=== PATIENT | female | born 1960 | race Two or more races ===

== ENCOUNTER 2023-01-21 07:47 | Emergency (ER) | payer OTHER, SELFPAY ==
--- NOTE | 2023-01-21 | US_ITS ---
The [address] [address] Patient Name: ZUNILDA ARIAS MRN: [id number] date: 1960 Sex: F Assigned Patient Location: ER Current Patient Location: ER Accession/Order Number: [id number] Exam Date: 01/21/2023 11:08 Report Date: 01/21/2023 12:08 At the request of: NAOMI VERA Procedure: US pelvis EXAMINATION: US pelvis, US vas organ single comp HISTORY: RIGHT OVARIAN MASS COMPARISON: 01/21/2023 CT exam FINDINGS: The uterus is normal in size, contour and myometrial echotexture measuring 6.8 x 4.9 x 3.5 cm. Anteverted. No focal myometrial mass. The endometrium measures 2 mm, within normal limits Heterogeneous mixed solid and cystic right adnexal mass measuring 12.7 x 12.3 x 9.1 cm. Normal ovarian tissue is not definitively seen. Color and Doppler flow is identified in the soft tissue components throughout the mass. The left ovary is not visualized IMPRESSION: 12.7 cm right adnexal mixed solid and cystic vascular mass. Malignancy is favored Electronically authenticated by: CHANDU SHRESTHA Date: 01/21/2023 12:08
[2023-01-21 07:51] VITALS: BP 182/96; PULSE 61; RESP 18; TEMP 36.4; O2SAT 94; BMI 33.6
--- NOTE | 2023-01-21 08:01 | CT_ITS ---
[address] [address] Patient Name: ZUNILDA ARIAS MRN: [id number] date: 1960 Sex: F Assigned Patient Location: ER Current Patient Location: ER Accession/Order Number: [id number] Exam Date: 01/21/2023 08:50 Report Date: 01/21/2023 09:39 At the request of: NAOMI VERA Procedure: CT abdomen pelvis w con EXAMINATION: CT abdomen pelvis w con HISTORY: abdominal pain, nausea COMPARISON: No relevant comparison available. TECHNIQUE: CT images were created with IV contrast. Axial, Coronal, and Sagittal images. Dose reduction techniques were achieved by using automated exposure control and/or adjustment of mA and/or kV according to patient size and/or use of iterative reconstruction technique. FINDINGS: LUNG BASES: No visible pulmonary or pleural disease. LIVER: Diffuse hypoattenuation consider hepatic steatosis. Subcentimeter hypodensity right hepatic lobe possibly a cyst BILIARY: No visible dilatation or calcification. PANCREAS: No lesion, fluid collection, ductal dilatation, or atrophy. SPLEEN: Areas of soft tissue attenuation in the left upper quadrant, residual splenic tissue is suspected ADRENALS: No mass or enlargement. KIDNEYS: Contour deformity cortical thinning calcification upper pole of the right kidney likely representing chronic changes BOWEL/MESENTERY: Colonic diverticulosis without evidence of acute diverticulitis. Nonobstructive bowel gas pattern AORTA/VASCULAR: No aneurysm or dissection. RETROPERITONEUM: No mass or adenopathy. LYMPH NODES: No adenopathy. URINARY BLADDER: No visible focal wall thickening, lesion, or calculus. PELVIC ORGANS: Unremarkable uterus and cervix. Complex lobular pelvic mass adjacent to the right adnexa measuring 13.0 x 12.3 cm axial image 161 and 11.6 cm in craniocaudal dimension deforming the superior margin of the urinary bladder. Heterogeneous soft tissue attenuationr with 3.5 cm area of fat density. The left ovary is not definitively seen ABDOMINAL WALL: No mass or hernia. BONES: No bony lesion or fracture. OTHER: Negative. IMPRESSION: Lobular heterogeneous complex pelvic mass measuring 13.0 x 12.3 x 11.6 cm. I favor an ovarian mass. Consideration should be given to malignant and nonmalignant tumors including malignant transformation of a teratoma Electronically authenticated by: CHANDU SHRESTHA Date: 01/21/2023 09:39
--- NOTE | 2023-01-21 08:11 | ED_ITS ---
HPI - Abdominal Pain General Chief Complaint: Abdominal Pain Stated Complaint: ABDOMIANL PAIN Time Seen by Provider: 01/21/23 07:54 Source: patient and family Mode of arrival: walk-in History of Present Illness HPI narrative: RLQ abdominal pain Started suddenly around 3 or 4am and woke the patient from sleeping. She had associated nausea but no vomiting. Pain is severe. PMHx includes kidney stones, splenic rupture and an appendectomy. No urinary symptoms. No fever or chills. Pain radiates into the right flank. She told me that she has been feeling great up until this happened. Related Data Allergies Allergy/AdvReac Type Severity Reaction Status Date / Time PCN AdvReac Intermediate Uncoded 01/21/23 07:51 PFSH PFSH Social History Smoking status: Former smoker Exam Narrative Exam Narrative: Nurses notes and vital signs reviewed and patient is not hypoxic. afebrile General: Very uncomfortable and in moderate distress. Skin: Warm, dry, no pallor noted. No rash to abdomen or flank. Head: Normocephalic, atraumatic. Eye: Pupils are equal, round and EOMI. No scleral icterus. Ears, Nose, Mouth, and Throat: Oral mucosa is moist Cardiovascular: Regular Rate and Rhythm without murmur, gallop or rub. Respiratory: No accessory muscle use or respiratory distress. Lungs are clear to auscultation, no wheezing, rales or rhonchi Back: No midline thoracic or lumbar vertebral tenderness. Right CVA tenderness Musculoskeletal: normal ROM, no calf or popliteal tenderness, no lower extremity edema/swelling GI: Abdomen is soft, non-distended. Normal bowel sounds. No masses appreciated. Suprapubic and RLQ tenderness to palpation. No rebound, guarding, or rigidity noted. Neurological: A&O x4. No cranial nerve dysfunction observed. No truncal ataxia. Moves all extremities. Sensation intact. Psychiatric: Cooperative and interactive. Normal mood and affect. Constitutional Vital Signs - 24 hr 01/21/23 07:51 Temperature 97.5 F L Pulse Rate [Monitor] 61 Respiratory Rate 18 Blood Pressure [Left Arm] 182/96 H Pulse Oximetry 94 L Oxygen Delivery Method Room Air Course Vital Signs Vital signs: Vital Signs Temperature 97.5 F L 01/21/23 07:51 Pulse Rate 61 01/21/23 07:51 Respiratory Rate 18 01/21/23 07:51 Blood Pressure 182/96 H 01/21/23 07:51 Pulse Oximetry 94 L 01/21/23 07:51 Oxygen Delivery Method Room Air 01/21/23 07:51 Temperature 97.5 F L 01/21/23 07:51 Pulse Rate 61 01/21/23 07:51 Respiratory Rate 18 01/21/23 07:51 Blood Pressure 182/96 H 01/21/23 07:51 Pulse Oximetry 94 L 01/21/23 07:51 Oxygen Delivery Method Room Air 01/21/23 07:51 MDM - Abdominal Pain MDM Narrative Medical decision making narrative: peripheral IV established and blood drawn and sent for testing including lactate. Blood blood cell count was normal. Lactate was elevated. blood cultures were ordered to be obtained patient was ordered to receive IV Levaquin. She was initially given IV morphine and IV Toradol for pain, along with IV Zofran for nausea. Pain is unchanged. Patient ordered to receive IV Dilaudid. She required several additional doses of dilaudid and her pain was only minimally decreased. CT scan of the abdomen pelvis with IV contrast ordered to be obtained. CT revealed a large pelvic mass, possible ovarian tumor. I spoke with Dr Arndt - [employer] field control inspector - he recommended pelvic US and transfer to [facility] where Dr Mike Tarango is a [employer] oncologist. US pelvis confirmed findings suspicious for right ovarian tumor. Call placed to [facility] to discuss transfer and referral to Dr Mike Fuller. I spoke with Dr Tyler - one of the residents - about this patient's case, her intractable pain, the CT and US findings and Dr Arndt's recommendation. I requested admission to their facility for this patient. She told me that she would discuss with Dr Lainez and call me back. I spoke once again with Dr Tyler and the patient was accepted to [facility] under Dr Lainez's service. Patient will be transported by ambulance. Lab Data Attestation: I reviewed the patient's lab results. Labs: Lab Results 01/21/23 01/21/23 Range/Units 08:05 08:08 WBC 5.5 (4.0-11.0) 10^3/uL RBC 4.46 (4.20-5.40) 10^6/uL Hgb 14.5 (12.0-16.0) g/dL Hct 42.9 (36.0-48.0) % MCV 96.2 (81.0-99.0) fL MCH 32.5 (26.7-34.0) pg MCHC 33.8 (29.9-35.2) g/dL RDW 13.2 (11.0-15.0) % Plt Count 393 (150-450) 10^3/uL MPV 10.1 (9.5-13.5) fL Neut % (Auto) 42.5 L (43.0-75.0) % Lymph % (Auto) 31.7 (20.5-60.0) % [place] % (Auto) 14.3 H (1.7-12.0) % Eos % (Auto) 9.2 H (0.9-7.0) % Baso % (Auto) 1.8 (0.2-2.0) % Neut # (Auto) 2.3 (1.4-6.5) 10^3/uL Lymph # (Auto) 1.7 (1.2-3.8) 10^3/uL [place] # (Auto) 0.8 (0.3-0.8) 10^3/uL Eos # (Auto) 0.5 (0.0-0.7) 10^3/uL Baso # (Auto) 0.1 (0.0-0.1) 10^3/uL Abs Immat Gran (auto) 0.03 (0.00-0.03) 10^3/uL Imm/Tot Granulo (auto) 0.5 (0.0-0.5) % Sodium 141 (136-145) mmol/L Potassium 3.6 (3.5-5.1) mmol/L Chloride 106 (98-107) mmol/L Carbon Dioxide 21.6 (21.0-32.0) mmol/L Anion Gap 17.0 BUN 6.0 L (7.0-18.0) mg/dL Creatinine 0.56 (0.55-1.02) mg/dL Est GFR ( Amer) >60 (>=60) Est GFR (Non-Af Amer) >60 (>=60) BUN/Creatinine Ratio 10.7 Glucose 111 H (74-106) mg/dL Lactate 2.3 H* (0.4-2.0) mmol/L Calcium 8.8 (8.5-10.1) mg/dL Total Bilirubin 0.4 (0.2-1.0) mg/dL AST 48 H (15-37) U/L ALT 45 (14-59) U/L Alkaline Phosphatase 81 (46-116) U/L Total Protein 7.4 (6.4-8.2) g/dL Albumin 3.3 L (3.4-5.0) g/dL Globulin 4.1 g/dL Albumin/Globulin Ratio 0.8 Lipase 55.0 L (73.0-393.0) U/L Urine Color Lt. yellow (YELLOW) Urine Clarity Clear (CLEAR) Urine pH 6.5 (5.0-9.0) Ur Specific [place] 1.010 (1.005-1.025) Urine Protein Negative (NEG/TRACE) mg/dL Urine Glucose (UA) Negative (NEGATIVE) mg/dL Urine Ketones Negative (NEGATIVE) mg/dL Urine Occult Blood Negative (NEGATIVE) Urine Nitrite Negative (NEGATIVE) Urine Bilirubin Negative (NEGATIVE) Urine Urobilinogen 0.2 (0.2-1.0) EU/dL Ur Leukocyte Esterase Negative (NEGATIVE) Imaging Data ct abd/pelvis: Radiologist's impression: Patient Name: ZUNILDA ARIAS MRN: [id number] date: 1960 Sex: F Assigned Patient Location: Current Patient Location: Accession/Order Number: [id number] Exam Date: 01/21/2023 08:50 Report Date: 01/21/2023 09:39 At the request of: NAOMI VERA Procedure: CT abdomen pelvis w con EXAMINATION: CT abdomen pelvis w con HISTORY: abdominal pain, nausea COMPARISON: No relevant comparison available. TECHNIQUE: CT images were created with IV contrast. Axial, Coronal, and Sagittal images. Dose reduction techniques were achieved by using automated exposure control and/or adjustment of mA and/or kV according to patient size and/or use of iterative reconstruction technique. FINDINGS: LUNG BASES: No visible pulmonary or pleural disease. LIVER: Diffuse hypoattenuation consider hepatic steatosis. Subcentimeter hypodensity right hepatic lobe possibly a cyst BILIARY: No visible dilatation or calcification. PANCREAS: No lesion, fluid collection, ductal dilatation, or atrophy. SPLEEN: Areas of soft tissue attenuation in the left upper quadrant, residual splenic tissue is suspected ADRENALS: No mass or enlargement. KIDNEYS: Contour deformity cortical thinning calcification upper pole of the right kidney likely representing chronic changes BOWEL/MESENTERY: Colonic diverticulosis without evidence of acute diverticulitis. Nonobstructive bowel gas pattern AORTA/VASCULAR: No aneurysm or dissection. RETROPERITONEUM: No mass or adenopathy. LYMPH NODES: No adenopathy. URINARY BLADDER: No visible focal wall thickening, lesion, or calculus. PELVIC ORGANS: Unremarkable uterus and cervix. Complex lobular pelvic mass adjacent to the right adnexa measuring 13.0 x 12.3 cm axial image 161 and 11.6 cm in craniocaudal dimension deforming the superior margin of the urinary bladder. Heterogeneous soft tissue attenuationr with 3.5 cm area of fat density. The left ovary is not definitively seen ABDOMINAL WALL: No mass or hernia. BONES: No bony lesion or fracture. OTHER: Negative. IMPRESSION: Lobular heterogeneous complex pelvic mass measuring 13.0 x 12.3 x 11.6 cm. I favor an ovarian mass. Consideration should be given to malignant and nonmalignant tumors including malignant transformation of a teratoma Electronically authenticated by: CHANDU SHRESTHA Date: 01/21/2023 09:39 us pelvis: Radiologist's impression: Patient Name: ZUNILDA ARIAS MRN: [id number] date: 1960 Sex: F Assigned Patient Location: ER Current Patient Location: Accession/Order Number: [id number] Exam Date: 01/21/2023 11:08 Report Date: 01/21/2023 12:08 At the request of: NAOMI VERA Procedure: US pelvis EXAMINATION: US pelvis, US vas organ single comp HISTORY: RIGHT OVARIAN MASS COMPARISON: 01/21/2023 CT exam FINDINGS: The uterus is normal in size, contour and myometrial echotexture measuring 6.8 x 4.9 x 3.5 cm. Anteverted. No focal myometrial mass. The endometrium measures 2 mm, within normal limits Heterogeneous mixed solid and cystic right adnexal mass measuring 12.7 x 12.3 x 9.1 cm. Normal ovarian tissue is not definitively seen. Color and Doppler flow is identified in the soft tissue components throughout the mass. The left ovary is not visualized IMPRESSION: 12.7 cm right adnexal mixed solid and cystic vascular mass. Malignancy is favored Electronically authenticated by: CHANDU SHRESTHA Date: 01/21/2023 12:08 Discharge Plan Discharge Chief Complaint: Abdominal Pain Clinical Impression: Intractable abdominal pain, Mass of right ovary Patient Disposition: [facility] Time of Disposition Decision: 13:40 Discharge Location: [facility]
[2023-01-21] MEDS: ONDANSETRON PF 4 MG/2 ML VIAL (08:22)
[2023-01-21] MEDS: 0.9 % SODIUM CHLORIDE 1,000 ML 999 ML IV (08:23)
[2023-01-21] MEDS: MORPHINE SULFATE 2 MG/ML SYRINGE IV (08:23)
[2023-01-21] MEDS: ONDANSETRON PF 4 MG/2 ML VIAL IV ×3 (08:23→15:06)
[2023-01-21 08:24] LABS: Basophils Absolute Auto 0.1 10^3/uL (0.0-0.1); Basophils Percent Auto 1.8 % (0.2-2.0); Eosinophils Absolute Auto 0.5 10^3/uL (0.0-0.7); Eosinophils Percent Auto 9.2 % (0.9-7.0); Hematocrit 42.9 % (36.0-48.0); Hemoglobin 14.5 g/dL (12.0-16.0); Immature Granulocytes Abs Auto 0.03 10^3/uL (0.00-0.03); Immature Granulocytes Pct Auto 0.5 % (0.0-0.5); Lymphocytes Absolute Auto 1.7 10^3/uL (1.2-3.8); Lymphocytes Percent Auto 31.7 % (20.5-60.0); Mean Corpuscular HGB Conc 33.8 g/dL (29.9-35.2); Mean Corpuscular Hemoglobin 32.5 pg (26.7-34.0); Mean Corpuscular Volume 96.2 fL (81.0-99.0); Mean Platelet Volume 10.1 fL (9.5-13.5); Monocytes Absolute Auto 0.8 10^3/uL (0.3-0.8); Monocytes Percent Auto 14.3 % (1.7-12.0); Neutrophils Absolute Auto 2.3 10^3/uL (1.4-6.5); Neutrophils Percent Auto 42.5 % (43.0-75.0); Platelet Count 393 10^3/uL (150-450); Red Blood Count 4.46 10^6/uL (4.20-5.40); Red Cell Distribution Width 13.2 % (11.0-15.0); White Blood Count 5.5 10^3/uL (4.0-11.0)
[2023-01-21 08:38] LABS: Alanine Aminotransferase 45 U/L (14-59); Albumin Globulin Ratio 0.8; Albumin Level 3.3 g/dL (3.4-5.0); Alkaline Phosphatase 81 U/L (46-116); Aspartate Amino Transferase 48 U/L (15-37); BUN Creatinine Ratio 10.7; Bilirubin Total 0.4 mg/dL (0.2-1.0); Calcium 8.8 mg/dL (8.5-10.1); Carbon Dioxide 21.6 mmol/L (21.0-32.0); Chloride 106 mmol/L (98-107); Estimated GFR (African America >60 (>=60); Estimated GFR (Non-African Ame >60 (>=60); Globulin 4.1 g/dL; Glucose 111 mg/dL (74-106); Potassium 3.6 mmol/L (3.5-5.1); Sodium 141 mmol/L (136-145); Total Protein 7.4 g/dL (6.4-8.2)
[2023-01-21] MEDS: KETOROLAC TROMETHAMINE 30 MG/ML VIAL IVP (08:39)
[2023-01-21 08:58] LABS: Lactate/Lactic Acid 2.3 mmol/L (0.4-2.0)
[2023-01-21] MEDS: HYDROMORPHONE HCL 1 MG/ML CARTRIDGE (09:12)
[2023-01-21] MEDS: LEVOFLOXACIN IN DEXTROSE 5 % 750 MG/150 ML IV.SOLN 100 MG IV (09:14)
[2023-01-21 10:05] LABS: Bilirubin Urine NEGATIVE (NEGATIVE); Blood Urine NEGATIVE (NEGATIVE); Clarity Urine CLEAR (CLEAR); Color Urine LT. YELLOW (YELLOW); Glucose Urine UA NEGATIVE (NEGATIVE); Ketones Urine NEGATIVE (NEGATIVE); Leukocyte Esterase Urine NEGATIVE (NEGATIVE); Nitrite Urine NEGATIVE (NEGATIVE); Protein Urine NEGATIVE (NEG/TRACE); Urobilinogen Urine 0.2 EU/dL (0.2-1.0); pH Urine 6.5 (5.0-9.0)
[2023-01-21 11:45] LABS: Urine Microscopic Indicated NO
[2023-01-21] MEDS: HYDROMORPHONE HCL 2 MG/ML VIAL 1 MG IV (12:08)
--- NOTE | 2023-01-21 14:14 | PC.NURSE ---
200/100 hr 97/min pt updated onplan of care
[2023-01-21] MEDS: HYDROMORPHONE HCL 1 MG/ML CARTRIDGE IVP (15:06)
--- NOTE | 2023-01-21 15:17 | PC.NURSE ---
pt left facility in care of spuerior no ss of distress noted at this time
[2023-01-21 15:18] VITALS: BP 164/74; PULSE 88; RESP 18; TEMP 36.8; O2SAT 98
== END 2023-01-21 15:19 | disposition short-term general hospital (02) ==
PROVIDERS: Emergency Provider Emergency Medicine; PCP Family Medicine
DX: R10.9 Unspecified abdominal pain (principal); N83.8 Other noninflammatory disorders of ovary, fallopian tube and broad ligament; Z87.442 Personal history of urinary calculi; Z87.891 Personal history of nicotine dependence
CPT/HCPCS: 36415; 74177; 76856; 80053; 81003; 83605; 83690; 85025; 87040; 93975; 96374; 96375; 96376; 99285; J1170; Q9967

== ENCOUNTER 2023-08-05 08:32 | Outpatient (OUT) | payer MEDICARE, SELFPAY ==
[2023-08-05 09:40] LABS: Alanine Aminotransferase 50 U/L (14-59); Albumin Globulin Ratio 0.9; Albumin Level 3.3 g/dL (3.4-5.0); Alkaline Phosphatase 96 U/L (46-116); Anion Gap 12.6; Aspartate Amino Transferase 48 U/L (15-37); BUN Creatinine Ratio 7.8; Bilirubin Direct 0.1 mg/dL (0.0-0.2); Bilirubin Total 0.3 mg/dL (0.2-1.0); Calcium 8.9 mg/dL (8.5-10.1); Carbon Dioxide 23.2 mmol/L (21.0-32.0); Chloride 108 mmol/L (98-107); Chol HDL Ratio 3.2; Cholesterol 228 mg/dL (<=200); Estimated GFR (African America >60 (>=60); Estimated GFR (Non-African Ame >60 (>=60); Globulin 3.7 g/dL; Glucose 95 mg/dL (74-106); HDL Cholesterol 71 mg/dL (40-60); Potassium 3.8 mmol/L (3.5-5.1); Sodium 140 mmol/L (136-145); Thyroid Stimulating Hormone 1.189 uIU/mL (0.358-3.740); Triglycerides 269 mg/dL (<=150); VLDL CHOLESTEROL 53.8 mg/dL
[2023-08-05 09:43] LABS: Basophils Absolute Auto 0.1 10^3/uL (0.0-0.1); Basophils Percent Auto 1.8 % (0.2-2.0); Eosinophils Absolute Auto 0.5 10^3/uL (0.0-0.7); Eosinophils Percent Auto 9.8 % (0.9-7.0); Hematocrit 40.8 % (36.0-48.0); Hemoglobin 13.3 g/dL (12.0-16.0); Immature Granulocytes Abs Auto 0.02 10^3/uL (0.00-0.03); Immature Granulocytes Pct Auto 0.4 % (0.0-0.5); Lymphocytes Absolute Auto 1.7 10^3/uL (1.2-3.8); Mean Corpuscular HGB Conc 32.6 g/dL (29.9-35.2); Mean Corpuscular Hemoglobin 31.3 pg (26.7-34.0); Mean Platelet Volume 10.1 fL (9.5-13.5); Monocytes Absolute Auto 0.6 10^3/uL (0.3-0.8); Monocytes Percent Auto 13.3 % (1.7-12.0); Neutrophils Absolute Auto 1.7 10^3/uL (1.4-6.5); Neutrophils Percent Auto 37.7 % (43.0-75.0); Platelet Count 341 10^3/uL (150-450); Red Blood Count 4.25 10^6/uL (4.20-5.40); Red Cell Distribution Width 14.2 % (11.0-15.0); White Blood Count 4.6 10^3/uL (4.0-11.0)
== END 2023-08-05 08:33 | disposition home or self-care (01) ==
LOC: LAB 08:36
PROVIDERS: PCP Family Medicine; Visit Provider Family Medicine
DX: Z79.899 Other long term (current) drug therapy (principal); Z13.220 Encounter for screening for lipoid disorders; E66.9 Obesity, unspecified
CPT/HCPCS: 36415; 80048; 80061; 80076; 84443; 85025

== ENCOUNTER 2024-02-04 08:16 | Outpatient (OUT) | payer MEDICARE, SELFPAY ==
--- NOTE | 2024-02-04 08:32 | XR_ITS ---
The [address] [address] Patient Name: ZUNILDA ARIAS MRN: [id number] date: 1960 Sex: F Assigned Patient Location: [facility] Current Patient Location: [facility] Accession/Order Number: [id number] Exam Date: 02/04/2024 08:28 Report Date: 02/04/2024 09:07 At the request of: SANTOSH SCHUMACHER Procedure: XR shoulder RT min 2V PROCEDURE: XR shoulder RT min 2V COMPARISON: None. HISTORY: Chronic Right Shoulder Pain FINDINGS: BONES:No acute fracture or dislocation. Moderate acromioclavicular and glenohumeral joint osteoarthropathy. High riding humeral head suggests chronic rotator cuff injury SOFT TISSUES:Negative. No visible soft tissue swelling. EFFUSION:None visible. OTHER: Negative. XR/XR shoulder RT min 2V IMPRESSION: Right shoulder osteoarthritis Electronically authenticated by: CHANDU SHRESTHA Date: 02/04/2024 09:07
== END 2024-02-04 08:17 | disposition home or self-care (01) ==
LOC: RAD 08:18
PROVIDERS: PCP Family Medicine; Visit Provider Family Medicine
DX: M25.511 Pain in right shoulder (principal); G89.29 Other chronic pain; M19.011 Primary osteoarthritis, right shoulder
CPT/HCPCS: 73030

== ENCOUNTER 2024-09-15 09:35 | Outpatient (OUT) | payer OTHER, SELFPAY ==
--- OUTSIDE RECORDS SUMMARY | 2024-09-12 14:26 | XMS_ITS | CCD ---
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 Name Role Phone MD Lisa Hennessy Attending Provider MD Howard Schumacher Primary Care Provider [phone] MD Howard Schumacher Referring Provider DO Tone Magana Attending Provider MD Howard Schumacher Primary Care Provider MD Lisa Hennessy Attending Provider MD Howard Schumacher Referring Provider MD Lisa Hennessy Attending Provider MD Lisa Hennessy Referring Provider ENDY, DR HOWARD Otto Primary Care Unavailable [place], DR Oreilly Consulting Unavailable NADERER, DR HOWARD Otto Admitting Unavailable NADERER, DR HOWARD Otto Attending Unavailable NADERER, DR HOWARD Otto Consulting Unavailable NADERETre, DR HOWARD Otto Primary Care Unavailable NADERETre, DR HOWARD Otto Admitting Unavailable NADERETre, DR HOWARD Otto Attending Unavailable NADERETre, DR HOWARD Otto Consulting Unavailable NADERETre, DR HOWARD Otto Primary Care Unavailable NADERETre, DR HOWARD Otto Admitting Unavailable ZIEBER, DR CORBIN [place] Consulting Unavailable NADERETre, DR HOWARD Otto Attending Unavailable NADBELLA, DR HOWARD Otto Consulting Unavailable MD Lisa Hennessy Attending Provider [phone] MD Lisa Hennessy Referring Provider MD Howard Schumacher Primary Care Provider MD Lisa Hennessy Attending Provider [phone] MD Lisa Hennessy Referring Provider [phone] MD Howard Schumacher Primary Care Provider MD Lisa Hennessy Attending Provider MD Lisa Hennessy Referring Provider MD Howard Schumacher Primary Care Provider MD Lisa Hennessy Attending Provider MD Lisa Hennessy Referring Provider MD Howard Schumacher Primary Care Provider MD Lisa Hennessy Attending Provider MD Lisa Hennessy Referring Provider MD Howard Schumacher Primary Care Provider [phone] MD Lisa Hennessy Attending Provider MD Lisa Hennessy Referring Provider MD Howard Schumacher Primary Care Provider [phone] DO Jacinto Mcnulty Attending Provider [phone] MD Lisa Hennessy Attending Provider MD Lisa Hennessy Referring Provider MD Howard Schumacher Primary Care Provider Howard Schumacher MD Primary Care Provider [phone] [employer] [employer]ER, [facility] Unavailable Howard Schumacher MD Unavailable TONE MAGANA Attending Unavailable TONE MAGANA H Attending Unavailable HOWARD SCHUMACHER Referring Unavailable HOWARD SCHUMACHER Attending Unavailable TONE MAGANA H Attending Unavailable BANDAR ESPINOSA Attending Unavailable HOWARD SCHUMACHER Attending Unavailable BANDAR ESPINOSA A Attending Unavailable Tone Magana Admitting Unavailable Tone Magana Attending Unavailable Howard Schumacher Primary Care Unavailable Howard Schumacher Primary Care Unavailable Gerhard Lisa Admitting Unavailable Lisa Hennessy Attending Unavailable Gerhard, Lisa Referring Unavailable Allergies Allergy Classification Reported Allergen(s) Allergy Type Date of Onset Reaction(s) Facility (20 sources) Penicillin; Translations: [penicillin G] Drug Allergy 02-10-2022 Unknown [facility] (1 source) Penicillin Drug Allergy 12-25-2021 [facility] Medications Current Medications Medication Drug Class(es) Dates Sig (Normalized) Sig (Original) acetaminophen 500 mg oral tablet (5 sources) Start: 04-16-2023 Acetaminophen (Tylenol Ex Str Rapid Release) 500 mg Tablet Active 500 MG PO As Directed April 15, 2023 11:00pm anastrozole 1 mg oral tablet (20 sources) Aromatase Inhibitor Start: 04-02-2022 End: 03-17-2024 take 1 tablet by mouth once daily Anastrozole 1 mg tablet Active 1 MG PO Daily 90 90 March 17, 2024 8:21am ascorbic acid 1000 mg oral tablet (11 sources) Vitamin C Ascorbic Acid (vitamin C) 1000 MG tablet 1 (one) time each day at the same time. Active azithromycin 250 mg oral tablet (5 sources) Macrolide Antimicrobial Start: 07-28-2024 End: 08-02-2024 take 1 tablet by mouth once daily azithromycin (Zithromax Z-Cassius) 250 MG tablet Indications: Abscess, toe, left Take 1 tablet (250 mg) by mouth Daily for 5 days Use as directed 6 tablet 07/28/2024 08/02/2024 Active Calcium (8 sources) Phosphate Binder, Calcium Start: 09-11-2022 take 2 tablets by mouth once daily Calcium 500 mg Tablet Active 1000 MG PO Daily September 11, 2022 12:00am Start: 09-11-2022 take 1000 mg by mouth once ron ly Calcium Active 1000 MG PO Daily September 11, 2022 1:00am Start: 09-11-2022 take 1000 mg by mouth once ron ly Calcium Active 1000 MG PO Daily September 11, 2022 12:00am calcium carbonate 500 mg oral tablet (11 sources) calcium carbonat e (Os-Satya) 1250 (500 Ca) MG tablet 1 (one) time each day at the same time. Active cholecalciferol 0.025 mg oral tablet (19 sources) Vitamin D Start: 2022 take 1 tablet by mouth once daily Cholecalciferol (Vitamin D3) (Vitamin D3) 25 mcg (1,000 unit) Tablet Active 25 MCG PO Daily September 11, 2022 12:00am docusate sodium 100 mg oral capsule (11 sources) Start: 2022 take 1 capsule by mouth once daily at bedtime docusate sodium (Colace) 100 MG capsule take 1 capsule by mouth every morning and BEFORE BEDTIME 01/25/2023 Active docusate sodium 50 mg / sennosides, mcfp 8.6 mg oral tablet (8 sources) Start: 2022 End: 2024 take 1 tablet by mouth every twelve hours for constipation Stool Softener/Laxative 50-8.6 MG tablet take 1 tablet by mouth every 12 hours if needed for constipation 01/25/2023 08/01/2024 Discontinued ibuprofen 800 mg oral tablet (6 sources) Nonsteroidal Anti-inflammatory Drug Start: 2022 take 1 tablet by mouth three times daily Ibuprofen 800 mg Tablet Active 800 MG PO Three times daily March 11, 2023 11:00pm meloxicam 15 mg oral tablet (15 sources) Nonsteroidal Anti-inflammatory Drug Start: 2022 End: 2024 take 1 tablet by mouth once daily meloxicam (Mobic) 15 MG tablet Indications: Arthralgia, unspecified joint Take 1 tablet (15 mg) by mouth Daily 30 tablet 11 03/17/2024 03/17/2025 Active mometasone furoate 1 mg/ml topical cream (17 sources) Corticosteroid Start: 2021 End: 2024 mometasone (Elocon) 0.1 % cream apply topically to RADIATION SITE DAILY AFTER RADIATION 04/24/2022 08/01/2024 Discontinued Start: 04-10-2022 End: 12-31-2022 Mometasone 0.1 % Cream Disco ntinued 1 APPLIC TOPICAL Daily 45 April 09, 2022 11:00pm December 31, 2022 12:20pm to radiation site daily AFTER radiation [place] (No Known Home Meds) (3 sources) Start: 03-14-2022 [place] (No Kn own Home Meds) Active March 14, 2022 12:00am Completed/Discontinued Medications Medication Drug Class(es) Dates Sig (Normalized) Sig (Original) acetaminophen 300 mg / codeine phosphate 30 mg oral tablet (13 sources) Opioid Agonist Start: 02-18-2022 End: 03-14-2022 take 1 tablet by mouth every four to six hours as needed for pain Acetaminophen-Code ine 300-30 mg tablet Discontinued 1 TAB PO EVERY 4-6 HOURS as needed for pain 14 3 February 17, 2022 11:00pm March 14, 2022 12:11pm calcium carbonate 1250 mg / cholecalciferol 0.01 mg oral tablet (9 sources) Vitamin D Start: 06-11-2022 End: 09-11-2022 Calcium Carbonate-Vitamin D3 (Calcium 500 + D) 500 mg-10 mcg (400 unit) Tablet Discontinued 2 TAB PO Daily 180 90 June 11, 2022 12:00am September 11, 2022 2:55pm Multivitamin (Multiple Vitamin) Tablet (6 sources) Start: 02-19-2023 End: 03-12-2023 take 1 tablet by mouth once daily Multivitamin (Multiple Vitamin) Tablet Discontinued 1 TAB PO Daily February 18, 2023 11:00pm March 12, 2023 12:01pm Start: 02-19-2023 End: 03-12-2023 take 1 tablet by mouth once daily Multivitamin (Multiple Vitamin) Tablet Discontinued 1 TAB PO Daily February 19, 2023 12:00am March 12, 2023 1:01pm oxyCODONE hydrochloride 5 mg oral tablet (6 sources) Opioid Agonist Start: 03-12-2023 End: 04-16-2023 take 1 tablet by mouth every six hours as needed for pain Oxycodone 5 mg Tablet Discontinued 5 MG PO Q6H as needed for Pain March 11, 2023 11:00pm April 16, 2023 10:04am Problems Active Problems Problem Classification Problem Date Documented Da te Episodic/Chronic Cancer of breast (20 sources) Malignant neoplasm of upper-inner quadrant of female breast; Translations: [Malignant neoplasm of upper-inner quadrant of right female breast] Onset: 01-16-2022 Resolved: 02-01-2024 01-30-2022 Chronic Disorders of lipid metabolism (7 sources) Dyslipidemia; Translations: [Hyperlipidemia, unspecified] Onset: 08-04-2023 08-01-2024 Chronic Other aftercare (10 sources) Encounter for therapeutic drug level monitoring; Translations: [Encounter for therapeutic drug monitoring] 06-18-2022 Episodic Other aftercare (20 sources) Long-term current use of drug therapy; Translations: [Encounter for therapeutic drug level monitoring] Onset: 08-04-2023 04-02-2022 Episodic Other bone disease and musculoskeletal deformities (20 sources) Osteopenia; Translations: [Other specified disorders of bone density and structure, unspecified site] Onset: 11-09-2023 06-11-2022 Episodic Other bone disease and musculoskeletal deformities (10 sources) Other specified disorders of bone density and structure, unspecified site; Translations: [Disorder of bone and cartilage, unspecified] 06-18-2022 Episodic Other connective tissue disease (4 sources) Pain of toe of left foot; Translations: [Pain in left toe(s)] 07-28-2024 Episodic Other female genital disorders (17 sources) Mass of uterine adnexa; Translations: [Other specified conditions associated with female genital organs and menstrual cycle] Onset: 11-09-2023 02-19-2023 Episodic Other female genital disorders (5 sources) Other specified conditions associated with female genital organs and menstrual cycle; Translations: [Other specified symptoms associated with female genital organs] 03-12-2023 Episodic Other non-traumatic joint disorders (19 sources) Joint pain; Translations: [Pain in unspecified joint] Onset: 08-04-2023 02-19-2023 Episodic Other non-traumatic joint disorders (7 sources) Pain in unspecified joint; Translations: [Pain in joint, site unspecified] 03-12-2023 Episodic Other screening for suspected conditions (not mental disorders or infectious disease) (20 sources) Patient encounter status; Translations: [Encounter for screening for osteoporosis] Onset: 08-04-2023 04-02-2022 Episodic Other skin disorders (4 sources) Ingrowing nail; Translations: [Ingrowing nail] 07-28-2024 Episodic Residual codes; unclassified (2 sources) History of bilateral salpingo-oophorect kathryn; Translations: [Acquired absence of other genital organ(s)] 02-11-2024 Episodic Residual codes; unclassified (2 sources) Acquired absence of other genital organ(s); Translations: [Acquired absence of organ, genital organs] 02-11-2024 Episodic Skin and subcutaneous tissue infections (4 sources) Abscess of toe of left foot; Translations: [Cutaneous abscess of left foot] 07-28-2024 Episodic Unclassified (3 sources) Unspecified lump in the right breast, overlapping quadrants; Translations: [UNS LUMP RT BREAST OVRLPNG QUADRNTS] Onset: 01-01-2022 Unclassified (1 source) Unspecified lump in the right breast, upper outer quadrant; Translations: [Unspecified lump in the right breast, upper outer quadrant] Onset: 09-29-2023 Past or Other Problems Problem Classification Problem Date Documented Date Episodic/Chronic Immunizations and screening for infectious disease (11 sources) Anti-nuclear factor positive; Translations: [Other specified abnormal immunological findings in serum] Onset: 08-04-2023 08-04-2023 Episodic Nonmalignant breast conditions (15 sources) Unspecified lump in the right breast, upper inner quadrant; Translations: [Pain of breast] Onset: 12-25-2021 Episodic Other aftercare (9 sources) Drug therapy finding; Translations: [Encounter for therapeutic drug level monitoring] Onset: 11-09-2023 04-02-2022 Episodic Other connective tissue disease (11 sources) Lump on face; Translations: [Other specified soft tissue disorders] Onset: 06-26-2023 06-26-2023 Episodic Other non-traumatic joint disorders (11 sources) Chronic pain of right upper limb; Translations: [Pain in right shoulder] Onset: 02-01-2024 02-01-2024 Episodic Other nutritional; endocrine; and metabolic disorders (11 sources) Body mass index 30+ - obesity; Translations: [Obesity, unspecified] Onset: 08-04-2023 Resolved: 08-01-2024 08-04-2023 Chronic Residual codes; unclassified (1 source) Family history of malignant neoplasm of digestive organs; Translations: [FAM HX MALIG NEOPLASM DIGESTIV ORGN] Onset: 01-01-2022 Episodic Results Test Name Value Interpretation Reference Range Facility MM diagnostic mammo BI w/CAD on 12-31-2023 MM diagnostic mammo BI w/CAD [facility] [address] Ultrasound Report Signed Patient: Denia Al MR#: [id number] : 1960 Acct:[id number] Age/Sex: 63 / F ADM Date: 12/31/23 Loc: XT [facility]: [facility] Attending Dr: Lisa Hennessy MD Ordering Provider: Lisa Hennessy MD; Ciera Vitale, ALEX Date of Service: 12/31/23 MM/MM diagnostic mammo BI w/CAD: right breast cancer ([id number]) US/US extremity nonvascular: RT AXILLA SWELLING Copies to: MD Ciera Kay, CLEAN OUT DRILLER BILATERAL Diagnostic Full Field digital mammogram with 3-D imaging. Full field digital CC and MLO imaging performed. CAD utilized. COMPARISON: 12/29/2022 HISTORY: Right axillary fullness for 6 weeks. History of right breast cancer. History of axillary lymph node dissection on the right. 2 years ago. BREAST COMPOSITION: Scattered fibroglandular densities of the breast parenchyma identified BREAST CALCIFICATIONS: Benign calcifications present. VASCULAR CALCIFICATIONS: None ARCHITECTURAL DISTORTION: None BREAST NODULE: None AXILLARY LYMPH NODES: Benign-appearing right axillary lymph nodes. POSTSURGICAL CHANGES: Stable right lumpectomy changes. Right axillary ultrasound performed. There is identification of 3 lymph nodes in the right axillary region. Thin cortex and fatty hilum identified. Largest measures up to 13 mm in short axis dimension. These are similar prior examination and likely represent benign findings. US/US extremity nonvascular IMPRESSION: No mammographic evidence of malignancy. Similar benign-appearing right axillary lymph nodes. Routine follow-up recommended in one year. RESULT CODE: 2 Benign Findings(s) DENSITY CODE: 2 (approximately 25-50% glandular) FOLLOW UP: 1YR THE FALSE-NEGATIVE RATE OF MAMMOGRAPHY IS APPROXIMATELY 10%. IMAGING OF A PALPABLE ABNORMALITY MUST BE BASED ON CLINICAL GROUNDS. PATIENT WAS ENTERED INTO A REMINDER SYSTEM WITH A TARGET DUE DATE FOR THE NEXT MAMMOGRAM. Impression dictated by: Ricardo Dumas M.D.12/31/2023 12:15 PM Dictation Location: [facility] Tech: Germaniajohnny Brooks Transcribed By: JAYSHREE 12/31/23 1215 Dictated By: Ricardo Dumas DO 12/31/23 1212 Signed By: 12/31/23 1215 Normal [facility] US breast RT limited 09-28 US breast RT limited [facility] [address] Ultrasound Report Signed Patient: Denia Al MR#: [id number] : 1960 Acct:[id number] Age/Sex: 63 / F ADM Date: 09/29/23 Loc: [facility] Room: Type: [facility] Attending Dr: Tone Magana DO Ordering Provider: Tone Magana DO Date of Service: 09/29/23 US/US breast RT limited: UOQ painful lump Copies to: Tone Magana DO Targeted right breast ultrasound HISTORY: History of right lumpectomy medially. Developing palpable lump in the upper outer quadrant of the right breast. Right breast scanned from 9 to 11:00 position in the region of palpable lump. This is at the 10:00 position 7 8 cm from the nipple. No focal abnormality identified. US/US breast RT limited IMPRESSION: No focal abnormality. Impression dictated by: Ricardo Dumas M.D.09/29/2023 10:58 AM Dictation Location: [facility] Tech: Terrie Brennan Transcribed By: JAYSHREE 09/29/23 1058 Dictated By: Ricardo Dumas DO 09/29/23 1056 Signed By: 09/29/23 1058 Normal [facility] Alanine aminotransferase [En zymatic activity/volume] in Serum or PlasmaOrdered By: Ciera Vitale on 03-12-2023 ALT [Catalytic activity/Vol] 27 U/L 7-52 [facility] Albumin [Mass/volume] in Ser um or Plasma by Bromocresol green (BCG) dye binding methoOrdered By: Ciera Vitale on 03-12-2023 Albumin BCG dye [Mass/Vol] 4.1 g/dL 3.5-5.7 [facility] Alkaline phosphatase [Enzyma tic activity/volume] in Serum or PlasmaOrdered By: Ciera Vitale on 03-12-2023 ALP [Catalytic activity/Vol] 76 U/L 34-104 [facility] Aspartate aminotransferase [ Enzymatic activity/volume] in Serum or PlasmaOrdered By: Ciera Vitale on 03-12-2023 AST [Catalytic activity/Vol] 32 U/L 13-39 [facility] Basophils Auto (Bld) [#/Vol] Ordered By: Ciera Vitale on 03-12-2023 Basophils (Bld) [#/Vol] 0.1 10*3/uL 0.0-0.2 [facility] Basophils/100 WBC Auto (Bld) Ordered By: Ciera Vitale on 03-12-2023 Basophils/100 WBC (Bld) 1.2 % . [facility] Bilirubin.total [Mass/volume ] in Serum or PlasmaOrdered By: Ciera Vitale on 03-12-2023 Bilirubin [Mass/Vol] 0.6 mg/dL 0.3-1.0 [facility] C reactive protein [Mass/vol ume] in Serum or PlasmaOrdered By: Ciera Vitale on 03-12-2023 CRP [Mass/Vol] 0.5 mg/dL 0.0-0.5 [facility] Calcium [Mass/volume] in Ser um or PlasmaOrdered By: Ciera Vitale on 03-12-2023 Calcium [Mass/Vol] 9.6 mg/dL 8.6-10.3 [facility] Carbon dioxide, total [Moles /volume] in Serum or PlasmaOrdered By: Ciera Vitale on 03-12-2023 CO2 [Moles/Vol] 28.4 mmol/L 21.0-31.0 [facility] Chloride [Moles/volume] in S wilber or PlasmaOrdered By: Ciera Vitale on 03-12-2023 Chloride [Moles/Vol] 107 mmol/L 98-107 [facility] Creatinine [Mass/volume] in Serum or PlasmaOrdered By: Ciera Vitale on 03-12-2023 Creatinine [Mass/Vol] 0.65 mg/dL 0.60-1.20 [facility] Eosinophils Auto (Bld) [#/Vo l]Ordered By: Ciera Vitale on 03-12-2023 Eosinophils (Bld) [#/Vol] 0.3 10*3/uL 0.0-0.45 [facility] Eosinophils/100 WBC Auto (Bl d)Ordered By: Ciera Vitale on 03-12-2023 Eosinophils/100 WBC (Bld) 5.1 % . [facility] Erythrocyte distribution wid th Auto (RBC) [Ratio]Ordered By: Ciera Vitale on 03-12-2023 Erythrocyte distribution width (RBC) [Ratio] 13.9 % 11.9-15.3 [facility] Erythrocyte sedimentation ra te by Photometric methodOrdered By: Ciera Vitale on 03-12-2023 ESR Photometric method (Bld) [Velocity] 25 mm/hr 0-29 [facility] Globulin Calc (S) [Mass/Vol] Ordered By: Ciera Vitale on 03-12-2023 Globulin (S) [Mass/Vol] 2.8 g/dL [facility] Glucose [Mass/volume] in Ser um or PlasmaOrdered By: Ciera Vitale on 03-12-2023 Glucose [Mass/Vol] 95 mg/dL 70-100 [facility] Comment on above: ADA recommended refe rence rangeRandom Glucose Reference Range is dependent on time and content of last meal. Glucose of more than 200 mg/dL in a nonstressed, ambulatory subject supports the diagnosis of Diabetes Mellitus. Hematocrit Auto (Bld) [Volum e fraction]Ordered By: Ciera Vitale on 03-12-2023 Hematocrit (Bld) [Volume fraction] 38.8 % 34.0-46.4 [facility] Hemoglobin [Mass/volume] in BloodOrdered By: Ciera Vitale on 03-12-2023 Hemoglobin (Bld) [Mass/Vol] 12.6 g/dL 11.8-15.4 [facility] Leukocytes [#/volume] correc pedro for nucleated erythrocytes in Blood by Automated counOrdered By: Ciera Vitale on 03-12-2023 WBC corrected for nucl RBC Auto (Bld) [#/Vol] 6.5 10*3/uL 3.8-11.6 [facility] Lymphocytes Auto (Bld) [#/Vo l]Ordered By: Ciera Vitale on 03-12-2023 Lymphocytes (Bld) [#/Vol] 1.5 10*3/uL 1.00-4.8 [facility] Lymphocytes/100 WBC Auto (Bl d)Ordered By: Ciera Vitale on 03-12-2023 Lymphocytes/100 WBC (Bld) 23.0 % . [facility] MCH Auto (RBC) [Entitic mass ]Ordered By: Ciera Vitale on 03-12-2023 MCH (RBC) [Entitic mass] 31.7 pg 24.7-34.3 [facility] MCHC Auto (RBC) [Mass/Vol]Or dered By: Ciera Vitale on 03-12-2023 MCHC (RBC) [Mass/Vol] 32.6 g/dL 32.0-35.0 [facility] MCV Auto (RBC) [Entitic vol] Ordered By: Ciera Vitale on 03-12-2023 MCV (RBC) [Entitic vol] 97.3 fL 80-100 [facility] Monocytes Auto (Bld) [#/Vol] Ordered By: Ciera Vitale on 03-12-2023 Monocytes (Bld) [#/Vol] 0.9 10*3/uL High 0.0-0.8 [facility] Monocytes/100 WBC Auto (Bld) Ordered By: Ciera Vitale on 03-12-2023 Monocytes/100 WBC (Bld) 13.4 % . [facility] Neutrophils Auto (Bld) [#/Vo l]Ordered By: Ciera Vitale on 03-12-2023 Neutrophils (Bld) [#/Vol] 3.7 10*3/uL 1.8-7.7 [facility] Neutrophils/100 WBC Auto (Bl d)Ordered By: Ciera Vitale on 03-12-2023 Neutrophils/100 WBC (Bld) 57.3 % . [facility] No Panel InformationOrdered By: Ciera Vitale on 03-12-2023 Anti-Nuclear Antibody Comment 2 See comment . [facility] Comment on above: For more information about Hep-2 cell patterns useANApatterns.org, the official website for the InternationalConsensus on Antinuclear Antibody ([place]) Patterns (ICAP). -----A positive [place] result may occur in healthy individuals (lowtiter) or be associated with a variety of diseases. Seeinterpretation chart which is not all inclusive:Pattern Antigen Detected Suggested Disease Association Homogeneous DNA(ds,ss), SLE - High titers Nucleosomes, Histones Drug-induced SLE Speckled Sm, UTILITY WORK[employer] [place], SCL-70, SLE,MCTD,PSS (diffuse form), SS-A/SS-B Sjogrens Nucleolar SCL-70, PM-1/SCL High titers Scleroderma, PM/DM Centromere Centromere PSS (limited form) w/Crest syndrome variable Nuclear Dot [id number] Primary Biliary Cirrhosis Nuclear GP210, Primary Biliary CirrhosisMembrane rory A,B,C Performed at: [facility] [id number] Director: Abdifatah Villegas PhD, Phone: [phone] Estimated GFR (CKD-EPI) > 60.0 mL/Min [facility] Creatinine Clearance (Chem 88.96 [facility] Nucleated erythrocytes [Pres ence] in Blood by Automated countOrdered By: Ciera Vitale on 03-12-2023 Nucleated RBC Auto Ql (Bld) 0.1 /100{WBC} 0-0.5 [facility] Platelet mean volume Auto (B ld) [Entitic vol]Ordered By: Ciera Vitale on 03-12-2023 Platelet mean volume (Bld) [Entitic vol] 8.5 fL 6.3-10.7 [facility] Platelets Auto (Bld) [#/Vol] Ordered By: Ciera Vitale on 03-12-2023 Platelets (Bld) [#/Vol] 417 10*3/uL 150-450 [facility] Potassium [Moles/volume] in Serum or PlasmaOrdered By: Ciera Vitale on 03-12-2023 Potassium [Moles/Vol] 4.7 mmol/L 3.5-5.1 [facility] Protein [Mass/volume] in Ser um or PlasmaOrdered By: Ciera Vitale on 03-12-2023 Protein [Mass/Vol] 6.9 g/dL 6.4-8.9 [facility] RBC Auto (Bld) [#/Vol]Ordere d By: Ciera Vitale on 03-12-2023 RBC (Bld) [#/Vol] 3.99 10*6/uL 3.60-5.[address] [facility] Serum homogeneous pattern an tinuclear antibody ([place]) titerOrdered By: Ciera Vitale on 03-12-2023 Homogenous nuclear Ab pattern (S) [Titer] 1:160 High . [facility] Comment on above: ICAP nomenclature: A C-1 Serum nuclear antibody titer Ordered By: Ciera Vitale on 03-12-2023 Nuclear Ab (S) [Titer] Positive Abnormal . [facility] Comment on above: Negative <1:80 Borde rline 1:80 Positive >1:80 Serum nucleolar pattern anti nuclear antibody ([place]) titerOrdered By: Ciera Vitale on 03-12-2023 Nucleolar nuclear Ab pattern (S) [Titer] 1:320 High . [facility] Comment on above: ICAP nomenclature: A C-8,9,10 Serum or plasma albumin/glob ulin mass ratioOrdered By: Ciera Vitale on 03-12-2023 Albumin/Globulin [Mass ratio] 1.5 {ratio} [facility] Serum or plasma anion gap de terminationOrdered By: Ciera Vitale on 03-12-2023 Anion gap [Moles/Vol] 9.3 mmol/L 6.0-15.0 [facility] Serum or plasma cyclic adeno sine monophosphate measurement (moles/volume)Ordered By: Ciera Vitale on 03-12-2023 Adenosine monophosphate.cyclic [Moles/Vol] 6 units 0-19 [facility] Comment on above: Negative <20 Weak po sitive 20 - 39 Moderate positive 40 - 59 Strong positive >59Performed at: - [facility] [address] [id number] Director: Abdifatah Villegas PhD, Phone: [phone] Serum or plasma rheumatoid f actor measurement (units/volume)Ordered By: Ciera Vitale on 03-12-2023 Rheumatoid factor Qn 10.3 [IU]/mL <14.0 [facility] Sodium [Moles/volume] in Ser um or PlasmaOrdered By: Ciera Vitale on 03-12-2023 Sodium [Moles/Vol] 140 mmol/L 136-145 [facility] Urea nitrogen [Mass/volume] in Serum or PlasmaOrdered By: Ciera Vitale on 03-12-2023 Urea nitrogen [Mass/Vol] 6 mg/dL Low 7-25 [facility] WBC Auto (Bld) [#/Vol]Ordere d By: Ciera mOermary kate on 03-12-2023 WBC (Bld) [#/Vol] 6.5 10*3/uL 3.8-11.6 [facility] COVID-19 Positive/NegativeOr dered By: Tone Magana on 03-05-2022 SARS-CoV-2 (COVID-19) N gene AMY+probe Ql (Resp) Negative Negative [facility] Comment on above: Testing for SARS-CoV -2 by RT-PCR This test was developed and its performance characteristics determined by [employer] and validated at the [facility]. This test has not been FDA cleared or approved. This test has been authorized by FDA under an Emergency Use Authorization (EUA). This test has been validated in accordance with the FDA's Guidance Document (Policy for Diagnostics Testing in Laboratories Certified to Perform High Complexity Testing under CLIA prior to Emergency Use Authorization for Coronavirus Disease-2019 during the Public Health Emergency) issued on October 27, 2019. This test is only authorized for the duration of time the declaration that circumstances exist justifying the authorization of the emergency use of in vitro diagnostic tests for detection of SARS-CoV-2 virus and/or diagnosis of COVID-19 infection under section 564(b)(1) of the Act, 21 U.S.C. 360bbb-3(b)(1), unless the authorization is terminated or revoked sooner. COVID-19 Positive/NegativeOr dered By: Tone Magana on 02-14-2022 SARS-CoV-2 (COVID-19) N gene AMY+probe Ql (Resp) Negative Negative [facility] Comment on above: Testing for SARS-CoV -2 by RT-PCR This test was developed and its performance characteristics determined by [employer] and validated at the [facility]. This test has not been FDA cleared or approved. This test has been authorized by FDA under an Emergency Use Authorization (EUA). This test has been validated in accordance with the FDA's Guidance Document (Policy for Diagnostics Testing in Laboratories Certified to Perform High Complexity Testing under CLIA prior to Emergency Use Authorization for Coronavirus Disease-2019 during the Public Health Emergency) issued on October 27, 2019. This test is only authorized for the duration of time the declaration that circumstances exist justifying the authorization of the emergency use of in vitro diagnostic tests for detection of SARS-CoV-2 virus and/or diagnosis of COVID-19 infection under section 564(b)(1) of the Act, 21 U.S.C. 360bbb-3(b)(1), unless the authorization is terminated or revoked sooner. Basophils Auto (Bld) [#/Vol] Ordered By: Tone Magana on 02-10-2022 Basophils (Bld) [#/Vol] 0.1 10*3/uL 0.0-0.2 [facility] Basophils/100 WBC Auto (Bld) Ordered By: Tone Magana on 02-10-2022 Basophils/100 WBC (Bld) 1.3 % . [facility] Blood hemoglobin measurement (mass/volume)Ordered By: Tone Magana on 02-10-2022 Hemoglobin (Bld) [Mass/Vol] 14.5 g/dL 11.8-15.4 [facility] Blood leukocytes automated c ount (number/volume)Ordered By: Tone Magana on 02-10-2022 WBC (Bld) [#/Vol] 8.1 10*3/uL 4.5-11.0 [facility] Creatinine and Glomerular fi ltration rate.predicted panel (S/P/Bld)Ordered By: Tone Magana on 02-10-2022 Creatinine [Mass/Vol] 0.64 mg/dL 0.44-1.03 [facility] Eosinophils Auto (Bld) [#/Vo l]Ordered By: Tone Magana on 02-10-2022 Eosinophils (Bld) [#/Vol] 0.8 10*3/uL 0.0-0.45 [facility] Eosinophils/100 WBC Auto (Bl d)Ordered By: Tone Magana on 02-10-2022 Eosinophils/100 WBC (Bld) 10.2 % . [facility] Erythrocyte distribution wid th Auto (RBC) [Ratio]Ordered By: Tone Magana on 02-10-2022 Erythrocyte distribution width (RBC) [Ratio] 13.4 % 11.9-15.3 [facility] Estimated glomerular filtrat ion rate (GFR) non- AmericanOrdered By: Tone Magana on 02-10-2022 GFR/1.73 sq M.predicted among non-blacks MDRD (S/P/Bld) [Vol rate/Area] > 60 mL/Min [facility] Hematocrit Auto (Bld) [Volum e fraction]Ordered By: Tone Magana on 02-10-2022 Hematocrit (Bld) [Volume fraction] 43.4 % 34.0-46.4 [facility] Laboratory - Hematology and Cell countsOrdered By: Tone Magana on 02-10-2022 Nucleated RBC/100 WBC (Bld) [Ratio] 0.2 % 0-0.5 [facility] Lymphocytes Auto (Bld) [#/Vo l]Ordered By: Tone Magana on 02-10-2022 Lymphocytes (Bld) [#/Vol] 1.7 10*3/uL 1.00-4.8 [facility] Lymphocytes/100 WBC Auto (Bl d)Ordered By: Tone Magana on 02-10-2022 Lymphocytes/100 WBC (Bld) 21.4 % . [facility] MCH Auto (RBC) [Entitic mass ]Ordered By: Tone Magana on 02-10-2022 MCH (RBC) [Entitic mass] 33.8 pg 24.7-34.3 [facility] MCHC Auto (RBC) [Mass/Vol]Or dered By: Tone Magana on 02-10-2022 MCHC (RBC) [Mass/Vol] 33.4 g/dL 32.0-35.0 [facility] MCV Auto (RBC) [Entitic vol] Ordered By: Tone Magana on 02-10-2022 MCV (RBC) [Entitic vol] 101.3 fL 80-100 [facility] Monocytes Auto (Bld) [#/Vol] Ordered By: Tone Magana on 02-10-2022 Monocytes (Bld) [#/Vol] 1.0 10*3/uL 0.0-0.8 [facility] Monocytes/100 WBC Auto (Bld) Ordered By: Tone Magana on 02-10-2022 Monocytes/100 WBC (Bld) 12.2 % . [facility] Neutrophils Auto (Bld) [#/Vo l]Ordered By: Tone Magana on 02-10-2022 Neutrophils (Bld) [#/Vol] 4.4 10*3/uL 1.8-7.7 [facility] Neutrophils/100 WBC Auto (Bl d)Ordered By: Tone Magana on 02-10-2022 Neutrophils/100 WBC (Bld) 54.9 % . [facility] No Panel InformationOrdered By: Tone Magana on 02-10-2022 Estimated GFR () > 60 mL/Min [facility] Comment on above: GFR estimated refere nce range: According to KDOQI guidelines, <60 ml/min/1.73m2 is sufficient to diagnose a patient with chronic kidney disease. Pharmacy Creatinine Clearance (Chem N/A [facility] Platelet mean volume Auto (B ld) [Entitic vol]Ordered By: Tone Magana on 02-10-2022 Platelet mean volume (Bld) [Entitic vol] 8.1 fL 6.3-10.7 [facility] Platelets Auto (Bld) [#/Vol] Ordered By: Tone Magana on 02-10-2022 Platelets (Bld) [#/Vol] 388 10*3/uL 150-450 [facility] RBC Auto (Bld) [#/Vol]Ordere d By: Tone Magana on 02-10-2022 RBC (Bld) [#/Vol] 4.29 10*6/uL 3.60-5.[address] [facility] Serum or plasma calcium cyndee urement (mass/volume)Ordered By: Tone Magana on 02-10-2022 Calcium [Mass/Vol] 9.6 mg/dL 8.2-10.2 [facility] Serum or plasma chloride raf surement (moles/volume)Ordered By: Tone Magana on 02-10-2022 Chloride [Moles/Vol] 106 mmol/L 95-114 [facility] Serum or plasma glucose cyndee urement (mass/volume)Ordered By: Tone Magana on 02-10-2022 Glucose [Mass/Vol] 103 mg/dL 70-100 [facility] Comment on above: ADA recommended refe rence range Random Glucose Reference Range is dependent on time and content of last meal. Glucose of more than 200 mg/dL in a nonstressed, ambulatory subject supports the diagnosis of Diabetes Mellitus. Serum or plasma potassium me asurement (moles/volume)Ordered By: Tone Magana on 02-10-2022 Potassium [Moles/Vol] 4.2 mmol/L 3.5-5.1 [facility] Serum or plasma sodium measu rement (moles/volume)Ordered By: Tone Magana on 02-10-2022 Sodium [Moles/Vol] 140 mmol/L 136-146 [facility] Serum or plasma total carbon dioxide measurement (moles/volume)Ordered By: Tone Magana on 02-10-2022 CO2 [Moles/Vol] 25.4 mmol/L 22.0-30.0 [facility] Serum or plasma urea nitroge n measurement (mass/volume)Ordered By: Tone Magana on 02-10-2022 Urea nitrogen [Mass/Vol] 4 mg/dL 9-23 [facility] US VAC ASST BX BREAST RT W C LIPon 01-09-2022 US VAC ASST BX BREAST RT W CLIP Begin Addendum #1 COLLECTED DATE/TIME: 01/01/2022 08:41 EDT Final Diagnosis Report for [facility], [place], [place] RIGHT BREAST MASS, 1 O'CLOCK, ULTRASOUND GUIDED CORE BIOPSY: -INVASIVE DUCTAL CARCINOMA, PROVISIONAL GRADE 2. 01/07/[address] Schumacher. Verified with Sabina that report was present in office. Original Report EXAMINATION: US VAC ASST BX BREAST RT W CLIP HISTORY: Lump in right breast COMPARISON: No relevant comparison available. TECHNIQUE: After obtaining informed consent, ultrasound-guided fine needle aspiration was performed in the usual sterile manner. FINDINGS: IMAGING: Ultrasound. BIOPSY NEEDLE: Mammotome vacuum assisted core needle LOCATION: Right breast 2:00 mass measuring 3.6 x 3.3 x 3.2 cm SPECIMEN TYPE: 4 core samples. LOCAL ANESTHETIC: 2 mL 1% buffered lidocaine superficial, 6 mL 1% buffered lidocaine with epinephrine deep. COMPLICATIONS: None. LABORATORY: Core samples were sent in formalin. OTHER: Negative. PATHOLOGY: Pending. An addendum will be added when results are available. IMPRESSION: 1. Uneventful ultrasound guided fine needle aspiration vacuum assisted core biopsy right breast mass 2. Pathology results are pending. Normal [facility] MAMMO POST BIOPSY RIGHTon MAMMO POST BIOPSY RIGHT Patient: DENIA VILLARREAL Exam Date: 01/01/2022 : 1960 Gender:F Ordering : DR HOWARD SCHUMACHER . Admission #: [id number] Family : Order #: [id number] CLICK HERE TO VIEW EXAM RADIOLOGY REPORT PROCEDURE: MAMMOGRAM POST BIOPSY IMAGES COMPARISON: MG MAMM DIAGNOSTIC 3D ALFREDO CAD, 12/25/2021. INDICATIONS: Mammographic mass of right breast BREAST COMPOSITION: FINDINGS: BIOPSY MARKER: A metallic marker has been placed in the targeted location within the biopsied mass. BREAST FINDINGS: Postprocedural changes Dictated by: Denilson Veliz MD on 01/01/2022 at 09:07 Approved by: Denilson Veliz MD on 01/01/2022 at 09:08 Normal [facility] MG MAMM DIAGNOSTIC 3D ALFREDO CA Don 12-25-2021 MG MAMM DIAGNOSTIC 3D ALFREDO CAD Patient: DENIA AL Exam Date: 12/25/2021 : 1960 Gender:F Ordering : DR HOWARD SCHUMACHER . Admission #: [id number] Family : Order #: [id number] CLICK HERE TO VIEW EXAM RADIOLOGY REPORT PROCEDURE: MAMMOGRAM DIAGNOSTIC 3D BILATERAL CAD, 12/25/2021, 07:53 ULTRASOUND BREAST RIGHT LIMITED, 12/25/2021, 08:25 COMPARISON: None. INDICATIONS: Lump in upper inner quadrant of right breast Calculator Name NCI Breast Cancer Risk Assessment Tool 5 Year Breast Cancer Risk 2.80% Lifetime Breast Cancer Risk 11.70% Personal Breast Cancer No Personal Ovarian Cancer No Treatments None Family Cancers Father with stomach cancer at age 84. LOCATION: [facility] BREAST COMPOSITION: Almost entirely fatty. FINDINGS: DIAGNOSTIC CATEGORY 4--SUSPICIOUS FOR MALIGNANCY. FINDING DOES NOT EXHIBIT CLASSIC FINDINGS OF BREAST CANCER: RIGHT BREAST: Macrolobular mass at approximately the 3 o'clock position, 4.5 cm in diameter on today's mammogram, which corresponds to patient's palpable lump. Scattered benign-appearing calcifications. Ultrasound evaluation demonstrates a macro lobular heterogeneous hypoechoic mass, 3.8 x 3.2 x 3.0 cm, corresponding to patient's palpable lump. Ultrasound-guided biopsy is recommended. Findings, recommendations, and alternatives were discussed with the patient. Our radiology department nurse will contact patient to events assistant scheduling a biopsy. LEFT BREAST: A few, scattered benign-appearing tiny calcifications. No suspicious findings. RECOMMENDATIONS: ULTRASOUND-GUIDED CORE BIOPSY: RIGHT BREAST PLEASE NOTE: A NORMAL MAMMOGRAM DOES NOT EXCLUDE THE POSSIBILITY OF BREAST CANCER. A CLINICALLY SUSPICIOUS PALPABLE LUMP SHOULD BE BIOPSIED. Dictated by: Corbin Lester M.D. on 12/25/2021 at 08:39 Approved by: Corbin Lester M.D. on 12/25/2021 at 08:49 Normal [facility] US BREAST RIGHT LIMITEDon US BREAST RIGHT LIMITED Patient: DENIA VILLARREAL Exam Date: 12/25/2021 : 1960 Gender:F Ordering : DR HOWARD SCHUMACHER . Admission #: [id number] Family : Order #: [id number] CLICK HERE TO VIEW EXAM RADIOLOGY REPORT PROCEDURE: MAMMOGRAM DIAGNOSTIC 3D BILATERAL CAD, 12/25/2021, 07:53 ULTRASOUND BREAST RIGHT LIMITED, 12/25/2021, 08:25 COMPARISON: None. INDICATIONS: Lump in upper inner quadrant of right breast Calculator Name NCI Breast Cancer Risk Assessment Tool 5 Year Breast Cancer Risk 2.80% Lifetime Breast Cancer Risk 11.70% Personal Breast Cancer No Personal Ovarian Cancer No Treatments None Family Cancers Father with stomach cancer at age 84. LOCATION: [facility] BREAST COMPOSITION: Almost entirely fatty. FINDINGS: DIAGNOSTIC CATEGORY 4--SUSPICIOUS FOR MALIGNANCY. FINDING DOES NOT EXHIBIT CLASSIC FINDINGS OF BREAST CANCER: RIGHT BREAST: Macrolobular mass at approximately the 3 o'clock position, 4.5 cm in diameter on today's mammogram, which corresponds to patient's palpable lump. Scattered benign-appearing calcifications. Ultrasound evaluation demonstrates a macro lobular heterogeneous hypoechoic mass, 3.8 x 3.2 x 3.0 cm, corresponding to patient's palpable lump. Ultrasound-guided biopsy is recommended. Findings, recommendations, and alternatives were discussed with the patient. Our radiology department nurse will contact patient to events assistant scheduling a biopsy. LEFT BREAST: A few, scattered benign-appearing tiny calcifications. No suspicious findings. RECOMMENDATIONS: ULTRASOUND-GUIDED CORE BIOPSY: RIGHT BREAST PLEASE NOTE: A NORMAL MAMMOGRAM DOES NOT EXCLUDE THE POSSIBILITY OF BREAST CANCER. A CLINICALLY SUSPICIOUS PALPABLE LUMP SHOULD BE BIOPSIED. Dictated by: Corbin Lester M.D. on 12/25/2021 at 08:39 Approved by: Corbin Lester M.D. on 12/25/2021 at 08:49 Normal [facility] CBC AUTO DIFFon 12-09-2021 BASO # 0.1 103/ul Normal 0.0-0.1 [facility] Comment on above: Performed By: #### C BC #### [facility] [address] [place], [place] [address] Dr. Yaya Cee Basophils/100 WBC (Bld) 1.7 % Normal 0.2-2.0 [facility] Comment on above: Performed By: #### C BC #### [facility] [address] [place], [place] [address] Dr. Yaya Cee EO # 0.7 103/ul Normal 0.0-0.7 [facility] Comment on above: Performed By: #### C BC #### [facility] [address] [place] [address] Dr. Yaya Cee Eosinophils/100 WBC (Bld) 9.7 % Critically high 0.9-7.0 [facility] Comment on above: Performed By: #### C BC #### [facility] [address] [place] [address] Dr. Yaya Cee Erythrocyte distribution width (RBC) [Ratio] 13.7 % Normal 11.0-15.0 [facility] Comment on above: Performed By: #### C BC #### [facility] [address] [place] [address] Dr. Yaya Cee Hematocrit (Bld) [Volume fraction] 43.0 % Normal 36.0-48.0 [facility] Comment on above: Performed By: #### C BC #### [facility] [address] [place] [address] Dr. Yaya Cee Hemoglobin (Bld) [Mass/Vol] 13.9 g/dL Normal 12.0-16.0 [facility] Comment on above: Performed By: #### C BC #### [facility] [address] [place] [address] Dr. Yaya Cee IG # 0.05 10e3/ul Critically high 0.00-0.03 [facility] Comment on above: Performed By: #### C BC #### [facility] [address] [place] [address] Dr. Yaya Cee IG % 0.7 % Critically high 0.0-0.5 [facility] Comment on above: Performed By: #### C BC #### [facility] [address] [place] [address] Dr. Yaya Cee LYMPH # 1.8 103/ul Normal 1.2-3.8 [facility] Comment on above: Performed By: #### C BC #### [facility] [address] [place] [address] Dr. Yaya Cee Lymphocytes/100 WBC (Bld) 25.4 % Normal 20.5-60.0 [facility] Comment on above: Performed By: #### C BC #### [facility] [address] [place] [address] [address] Yaya Cee MANUAL DIFF REQ NO Normal [facility] Comment on above: Performed By: #### C BC #### [facility] [address] [place] [address] Dr. Yaya Cee MCH (RBC) [Entitic mass] 33.3 pg Normal 26.7-34.0 [facility] Comment on above: Performed By: #### C BC #### [facility] [address] [place] [address] Dr. Yaya Cee MCHC (RBC) [Mass/Vol] 32.3 g/dL Normal 29.9-35.2 [facility] Comment on above: Performed By: #### C BC #### [facility] [address] [place] [address] Dr. Yaya Cee MCV (RBC) [Entitic vol] 102.9 fL Critically high 81.0-99 .0 [facility] Comment on above: Performed By: #### C BC #### [facility] [address] [place] [address] Dr. Yaya Cee MONO # 0.9 103/ul Critically high 0.3-0.8 [facility] Comment on above: Performed By: #### C BC #### [facility] [address] [place] [address] Dr. Yaya Cee Monocytes/100 WBC (Bld) 12.6 % Critically high 1.7-12. 0 [facility] Comment on above: Performed By: #### C BC #### [facility] [address] [place] [address] Dr. Yaya Cee NEUT # 3.6 103/ul Normal 1.4-6.5 [facility] Comment on above: Performed By: #### C BC #### [facility] [address] [place] [address] Dr. Yaya Cee Neutrophils/100 WBC (Bld) 49.9 % Normal 43.0-75.0 [facility] Comment on above: Performed By: #### C BC #### [facility] [address] [address] [address] Yaya Cee Platelet mean volume (Bld) [Entitic vol] 10.0 fL Normal 9.5-13.5 [facility] Comment on above: Performed By: #### C BC #### [facility] [address] [place] [address] Dr. Yaya Cee PLT 421 103/ul Normal 150-450 [facility] Comment on above: Performed By: #### C BC #### [facility] [address] [place] [address] Dr. Yaya Cee RBC 4.18 106/ul Critically low 4.20-5.40 [facility] Comment on above: Performed By: #### C BC #### [facility] [address] [place] [address] Dr. Yaya Cee WBC 7.1 103/ul Normal 4.0-11.0 [facility] Comment on above: Performed By: #### C BC #### [facility] [address] [place] [address] Dr. Yaya Cee GLYCOHEMOGLOBIN A1Con 2021 ADA RECOMMENDATION SEE BELOW Normal [facility] Comment on above: Result Comment: ADA RECOMMENDED LIMIT 4.0 - 6.0 ADA THERAPEUTIC TARGET < 7.0 ACTION SUGGESTED > 7.0 Performed By: #### A 1C #### [facility] [address] [place] [address] Dr. Yaya Cee Glucose [Mass/Vol] 108 mg/dL Normal [facility] Comment on above: Performed By: #### A 1C #### [facility] [address] [place] [address] Dr. Yaya Cee HbA1c (Bld) [Mass fraction] 5.4 % Normal 4.5-6.2 [facility] Comment on above: Performed By: #### A 1C #### [facility] [address] [place] [address] Dr. Yaya Cee LIPID PROFILEon 12-09-2021 CHOL-HDL RATIO NORM SEE BELOW Normal [facility] Comment on above: Result Comment: 3.3 - 4.4 LOW RISK 4.4 - 7.1 AVERAGE RISK 7.1 - 11.0 MODERATE RISK >11.0 HIGH RISK Performed By: #### T SH, LIPID, LIVER, BMP #### [facility] [address] [place] [address] Dr. Yaya Cee Cholesterol [Mass/Vol] 219 mg/dL Critically high <=200 [facility] Comment on above: Performed By: #### T SH, LIPID, LIVER, BMP #### [facility] [address] [place] [address] Dr. Yaya Cee Cholesterol in HDL [Mass/Vol] 68 mg/dL Critically high 40-60 [facility] Comment on above: Performed By: #### T SH, LIPID, LIVER, BMP #### [facility] [address] [place] [address] Dr. Yaya Cee Cholesterol in LDL [Mass/Vol] 130.8 mg/dL Normal [facility] Comment on above: Performed By: #### T SH, LIPID, LIVER, BMP #### [facility] [address] [place] [address] Dr. Yaya Cee Cholesterol.total/Tammie sterol in HDL [Mass ratio] 3.2 {ratio} Normal [facility] Comment on above: Performed By: #### T SH, LIPID, LIVER, BMP #### [facility] [address] [place] [address] Dr. Yaya Cee HDL NORMAL > or = 60 mg/dl - LO W CARDIOVASCULAR RISK <40 mg/dl - HIGH CARDIOVASCULAR RISK Normal [facility] Comment on above: Performed By: #### T SH, LIPID, LIVER, BMP #### [facility] [address] [place] [address] Dr. Yaya Cee LDL CALC NORMAL SEE BELOW Normal [facility] Comment on above: Result Comment: <100 mg/dl OPTIMAL 100 - 129 mg/dl NEAR OR ABOVE OPTIMAL 130 - 159 mg/dl BORDERLINE HIGH 160 - 189 mg/dl HIGH >190 mg/dl VERY HIGH Performed By: #### T SH, LIPID, LIVER, BMP #### [facility] [address] [place] [address] Dr. Yaya Cee Triglyceride [Mass/Vol] 101 mg/dL Normal <=150 [facility] Comment on above: Performed By: #### T SH, LIPID, LIVER, BMP #### [facility] [address] [address] [address] Yaya Cee VLDL CALC 20.2 mg/dL Normal [facility] Comment on above: Performed By: #### T SH, LIPID, LIVER, BMP #### [facility] [address] [address] [address] Yaya Cee LIVER PROFILEon 12-09-2021 Albumin [Mass/Vol] 3.6 g/dL Normal 3.4-5.0 [facility] Comment on above: Performed By: #### T SH, LIPID, LIVER, BMP #### [facility] [address] [place] [address] Dr. Yaya Cee Albumin/Globulin [Mass ratio] 1.0 {ratio} Normal [facility] Comment on above: Performed By: #### T SH, LIPID, LIVER, BMP #### [facility] [address] [place] [address] Dr. Yaya Cee ALP [Catalytic activity/Vol] 79 U/L Normal 46-116 [facility] Comment on above: Performed By: #### T SH, LIPID, LIVER, BMP #### [facility] [address] [place] [address] Dr. Yaya Cee ALT [Catalytic activity/Vol] 35 U/L Normal 14-59 [facility] Comment on above: Performed By: #### T SH, LIPID, LIVER, BMP #### [facility] [address] [place] [address] Dr. Yaya Cee AST [Catalytic activity/Vol] 60 U/L Critically high 15-37 [facility] Comment on above: Performed By: #### T SH, LIPID, LIVER, BMP #### [facility] [address] [place] [address] Dr. Yaya Cee BILI, CONJUGATED 0.1 mg/dL Normal 0.0-0.2 [facility] Comment on above: Performed By: #### T SH, LIPID, LIVER, BMP #### [facility] [address] [place] [address] Dr. Yaya Cee Bilirubin [Mass/Vol] 0.3 mg/dL Normal 0.2-1.0 [facility] Comment on above: Performed By: #### T SH, LIPID, LIVER, BMP #### [facility] [address] [place] [address] Dr. Yaya Cee Globulin (S) [Mass/Vol] 3.6 g/dL Normal [facility] Comment on above: Performed By: #### T SH, LIPID, LIVER, BMP #### [facility] [address] [place] [address] Dr. Yaya Cee Protein [Mass/Vol] 7.2 g/dL Normal 6.4-8.2 [facility] Comment on above: Performed By: #### T SH, LIPID, LIVER, BMP #### [facility] [address] [place] [address] Dr. Yaya Cee PROF CHEM 8 (BAS METB)on Anion gap [Moles/Vol] 11.4 mmol/L Normal [facility] Comment on above: Performed By: #### T SH, LIPID, LIVER, BMP #### [facility] [address] [place] [address] Dr. Yaya Cee Calcium [Mass/Vol] 8.8 mg/dL Normal 8.5-10.1 [facility] Comment on above: Performed By: #### T SH, LIPID, LIVER, BMP #### [facility] [address] [place] [address] Dr. Yaya Cee Chloride [Moles/Vol] 108 mmol/L Critically high 98-107 [facility] Comment on above: Performed By: #### T SH, LIPID, LIVER, BMP #### [facility] [address] [place] [address] Dr. Yaya Cee CO2 [Moles/Vol] 25.4 mmol/L Normal 21.0-32.0 [facility] Comment on above: Performed By: #### T SH, LIPID, LIVER, BMP #### [facility] [address] [place] [address] Dr. Yaya Cee Creatinine [Mass/Vol] 0.63 mg/dL Normal 0.55-1.02 [facility] Comment on above: Performed By: #### T SH, LIPID, LIVER, BMP #### [facility] [address] [address] [address] Yaya Cee EGFR-AF PRYDEINIG >60 Normal >=60 [facility] Comment on above: Performed By: #### T SH, LIPID, LIVER, BMP #### [facility] [address] [address] [address] Yaya Cee EGFR-NON AF PRYDEINIG >60 Normal >=60 [facility] Comment on above: Performed By: #### T SH, LIPID, LIVER, BMP #### [facility] [address] [place] [address] Dr. Yaya Cee Glucose [Mass/Vol] 105 mg/dL Normal 74-106 [facility] Comment on above: Performed By: #### T SH, LIPID, LIVER, BMP #### [facility] [address] [place] [address] Dr. Yaya Cee Potassium [Moles/Vol] 4.8 mmol/L Normal 3.5-5.1 [facility] Comment on above: Performed By: #### T SH, LIPID, LIVER, BMP #### [facility] [address] [place] [address] Dr. Yaya Cee Sodium [Moles/Vol] 140 mmol/L Normal 136-145 [facility] Comment on above: Performed By: #### T SH, LIPID, LIVER, BMP #### [facility] [address] [place] [address] Dr. Yaya Cee Urea nitrogen [Mass/Vol] 7.0 mg/dL Normal 7.0-18.0 [facility] Comment on above: Performed By: #### T SH, LIPID, LIVER, BMP #### [facility] [address] [place] [address] Dr. Yaya Cee Urea nitrogen/Creatinine [Mass ratio] 11.1 mg/mg Normal [facility] Comment on above: Performed By: #### T SH, LIPID, LIVER, BMP #### [facility] [address] [address] [address] Yaya Cee TSHon 12-09-2021 TSH 0.600 uIU/mL Normal 0.358-3.740 [facility] Comment on above: Performed By: #### T SH, LIPID, LIVER, BMP #### [facility] [address] [address] [address] Yaya Cee TSH RANGE SEE BELOW Normal [facility] Comment on above: Result Comment: <0.3 4 UIU/ml HYPERTHYROID 0.34-5.60 UIU/ml EUTHYROID >5.60 UIU/ml HYPOTHYROID Performed By: #### T SH, LIPID, LIVER, BMP #### [facility] [address] [address] [address] Yaya Cee Vital Signs Date Time Vital Sign Value Performing Clinician Facility 08-22-2024 09:19-0500 Body height 165.[address] [facility] 08-22-2024 09:19-0500 Body mass index (BMI) [Ratio] 28.4 kg/m2 [facility] 08-22-2024 09:19-0500 Body temperature 97.8 [degF] [facility] 08-22-2024 09:19-0500 Body weight 77.[address] [facility] 08-22-2024 09:19-0500 Diastolic blood pressure 83 mm[Hg] [facility] 08-22-2024 09:19-0500 Heart rate 61 /min [facility] 08-22-2024 09:19-0500 Respiratory rate 16 /min [facility] 08-22-2024 09:19-0500 SaO2% (BldA) [Mass fraction] 97 % [facility] 08-22-2024 09:19-0500 Systolic blood pressure 156 mm[Hg] [facility] 08-11-2024 10:47-0500 Body height 165.1 cm Bandar Espinosa DPM Work Phone: [facility] 08-11-2024 10:47-0500 Body mass index (BMI) [Ratio] 28.29 kg/m2 Bandar Espinosa DPM Work Phone: [facility] 08-11-2024 10:47-0500 Body weight 77.11 kg Bandar Espinosa DPM Work Phone: [facility] 08-11-2024 10:47-0500 Respiratory rate 16 /min Bandar Jesús DPM Work Phone: [facility] 08-01-2024 13:12-0500 Body height 165.1 cm Howard Schumacher MD Work Phone: [facility] 08-01-2024 13:12-0500 Body mass index (BMI) [Ratio] 28.29 kg/m2 Howard Schumacher MD Work Phone: [facility] 08-01-2024 13:12-0500 Body temperature 98.6 [degF] Howard Schumacher MD Work Phone: [facility] 08-01-2024 13:12-0500 Body weight 77.11 kg Howard Schumacher MD Work Phone: [facility] 08-01-2024 13:12-0500 Diastolic blood pressure 80 mm[Hg] Howard Schumacher MD Work Phone: [facility] 08-01-2024 13:12-0500 Heart rate 104 /min Howard Schumacher MD Work Phone: [facility] 08-01-2024 13:12-0500 Respiratory rate 22 /min Howard Schumacher MD Work Phone: [facility] 08-01-2024 13:12-0500 SaO2% (BldA) [Mass fraction] 97 % Howard Schumacher MD Work Phone: [facility] 08-01-2024 13:12-0500 Systolic blood pressure 168 mm[Hg] Howard Schumacher MD Work Phone: [facility] 07-28-2024 11:08-0500 Body height 165.1 cm Bandar Brown DPM Work Phone: [facility] 07-28-2024 11:08-0500 Body mass index (BMI) [Ratio] 26.63 kg/m2 Bandar Espinosa DPM Work Phone: [facility] 07-28-2024 11:08-0500 Body weight 72.58 kg Bandar Espinosa DPM Work Phone: [facility] 07-28-2024 11:08-0500 Respiratory rate 16 /min Bandar Espinosa DPM Work Phone: [facility] 04-01-2024 09:51-0400 Body height 165.1 cm Tone Itzkowitz DO Work Phone: [facility] 04-01-2024 09:51-0400 Body mass index (BMI) [Ratio] 27.76 kg/m2 Tone Itzkowitz DO Work Phone: [facility] 04-01-2024 09:51-0400 Body weight 75.66 kg Tone Itzkowitz DO Work Phone: [facility] 04-01-2024 09:51-0400 Diastolic blood pressure 88 mm[Hg] Tone Itzkowitz DO Work Phone: [facility] 04-01-2024 09:51-0400 Systolic blood pressure 152 mm[Hg] Tone Itzkowitz DO Work Phone: [facility] 02-11-2024 08:23-0400 Body temperature 97.8 [degF] MD Lisa Hennessy Work Phone: [facility] 02-11-2024 08:23-0400 Body weight 76.2 kg MD Lisa Hennessy Work Phone: [facility] 02-11-2024 08:23-0400 Diastolic blood pressure 85 mm[Hg] MD Lisa Hennessy Work Phone: [facility] 02-11-2024 08:23-0400 Heart rate 65 /min MD Lisa Hennessy Work Phone: [facility] 02-11-2024 08:23-0400 Respiratory rate 16 /min MD Lisa Hennessy Work Phone: [facility] 02-11-2024 08:23-0400 SaO2% (BldA) [Mass fraction] 100 % MD Lisa Hennessy Work Phone: [facility] 02-11-2024 08:23-0400 Systolic blood pressure 158 mm[Hg] MD Lisa Hennessy Work Phone: [facility] 07-02-2023 12:55-0500 Body temperature 97.9 [degF] MD Lisa Hennessy Work Phone: [facility] 07-02-2023 12:55-0500 Body weight 80.28 kg MD Lisa Hennessy Work Phone: [facility] 07-02-2023 12:55-0500 Diastolic blood pressure 96 mm[Hg] MD Lisa Hennessy Work Phone: [facility] 07-02-2023 12:55-0500 Heart rate 73 /min MD Lisa Hennessy Work Phone: [facility] 07-02-2023 12:55-0500 Respiratory rate 16 /min MD Lisa Hennessy Work Phone: [facility] 07-02-2023 12:55-0500 SaO2% (BldA) [Mass fraction] 96 % MD Lisa Hennessy Work Phone: [facility] 07-02-2023 12:55-0500 Systolic blood pressure 167 mm[Hg] MD Lisa Hennessy Work Phone: [facility] 04-16-2023 11:06-0400 Body temperature 98.1 [degF] MD Lisa Hennessy Work Phone: [facility] 04-16-2023 11:06-0400 Body weight 77.83 kg MD Lisa Hennessy Work Phone: [facility] 04-16-2023 11:06-0400 Diastolic blood pressure 87 mm[Hg] MD Lisa Hennessy Work Phone: [facility] 04-16-2023 11:06-0400 Heart rate 63 /min MD Lisa Hennessy Work Phone: [facility] 04-16-2023 11:06-0400 Respiratory rate 20 /min MD Lisa Hennessy Work Phone: [facility] 04-16-2023 11:06-0400 SaO2% (BldA) [Mass fraction] 99 % MD Lisa Hennessy Work Phone: [facility] 04-16-2023 11:06-0400 Systolic blood pressure 131 mm[Hg] MD Lisa Hennessy Work Phone: [facility] 03-12-2023 13:02-0400 Body temperature 98.8 [degF] MD Lisa Hennessy Work Phone: [facility] 03-12-2023 13:02-0400 Body weight 75.61 kg MD Lisa Hennessy Work Phone: [facility] 03-12-2023 13:02-0400 Diastolic blood pressure 86 mm[Hg] MD Lisa Hennessy Work Phone: [facility] 03-12-2023 13:02-0400 Heart rate 55 /min MD Lisa Hennessy Work Phone: [facility] 03-12-2023 13:02-0400 Respiratory rate 18 /min MD Lisa Hennessy Work Phone: [facility] 03-12-2023 13:02-0400 SaO2% (BldA) [Mass fraction] 99 % MD Lisa Hennessy Work Phone: [facility] 03-12-2023 13:02-0400 Systolic blood pressure 174 mm[Hg] MD Lisa Hennessy Work Phone: [facility] 12-31-2022 13:23-0400 Body temperature 97.8 [degF] MD Lisa Hennessy Work Phone: [facility] 12-31-2022 13:23-0400 Body weight 76.2 kg MD Lisa Hennessy Work Phone: [facility] 12-31-2022 13:23-0400 Diastolic blood pressure 84 mm[Hg] MD Lisa Hennessy Work Phone: [facility] 12-31-2022 13:23-0400 Heart rate 62 /min MD Lisa Hennessy Work Phone: [facility] 12-31-2022 13:23-0400 Respiratory rate 16 /min MD Lisa Hennessy Work Phone: [facility] 12-31-2022 13:23-0400 SaO2% (BldA) [Mass fraction] 98 % MD Lisa Hennessy Work Phone: [facility] 12-31-2022 13:23-0400 Systolic blood pressure 172 mm[Hg] MD Lisa Hennessy Work Phone: [facility] 09-11-2022 14:57-0500 Body height 165.1 cm MD Lisa Hennessy Work Phone: [facility] 09-11-2022 14:57-0500 Body temperature 98.4 [degF] MD Lisa Hennessy Work Phone: [facility] 09-11-2022 14:57-0500 Body weight 76.1 kg MD Lisa Hennessy Work Phone: [facility] 09-11-2022 14:57-0500 Diastolic blood pressure 78 mm[Hg] MD Lisa Hennessy Work Phone: [facility] 09-11-2022 14:57-0500 Heart rate 89 /min MD Lisa Hennessy Work Phone: [facility] 09-11-2022 14:57-0500 Respiratory rate 20 /min MD Lisa Hennessy Work Phone: [facility] 09-11-2022 14:57-0500 SaO2% (BldA) [Mass fraction] 99 % MD Lisa Hennessy Work Phone: [facility] 09-11-2022 14:57-0500 Systolic blood pressure 144 mm[Hg] MD Lisa Hennessy Work Phone: [facility] 06-18-2022 08:57-0500 Body temperature 98.2 [degF] MD Lisa Hennessy Work Phone: [facility] 06-18-2022 08:57-0500 Body weight 76.3 kg MD Lisa Hennessy Work Phone: [facility] 06-18-2022 08:57-0500 Diastolic blood pressure 77 mm[Hg] MD Lisa Hennessy Work Phone: [facility] 06-18-2022 08:57-0500 Heart rate 66 /min MD Lisa Hennessy Work Phone: [facility] 06-18-2022 08:57-0500 Respiratory rate 18 /min MD Lisa Hennessy Work Phone: [facility] 06-18-2022 08:57-0500 SaO2% (BldA) [Mass fraction] 98 % MD Lisa Hennessy Work Phone: [facility] 06-18-2022 08:57-0500 Systolic blood pressure 136 mm[Hg] MD Lisa Hennessy Work Phone: [facility] 04-02-2022 08:43-0400 Body temperature 97 [degF] MD Howard Schumacher Work Phone: [facility] 04-02-2022 08:43-0400 Body weight 74.38 kg MD Howard Schumacher Work Phone: [facility] 04-02-2022 08:43-0400 Diastolic blood pressure 85 mm[Hg] MD Howard Schumacher Work Phone: [facility] 04-02-2022 08:43-0400 Heart rate 66 /min MD Howard Schumacher Work Phone: [facility] 04-02-2022 08:43-0400 Respiratory rate 16 /min MD Howard Schumacher Work Phone: [facility] 04-02-2022 08:43-0400 SaO2% (BldA) [Mass fraction] 98 % MD Howard Schumacher Work Phone: [facility] 04-02-2022 08:43-0400 Systolic blood pressure 159 mm[Hg] MD Howard Schumacher Work Phone: [facility] 03-14-2022 13:12-0400 Body temperature 97.8 [degF] MD Howard Schumacher Work Phone: [facility] 03-14-2022 13:12-0400 Body weight 74.84 kg MD Howard Schumacher Work Phone: [facility] 03-14-2022 13:12-0400 Diastolic blood pressure 82 mm[Hg] MD Howard Schumacher Work Phone: [facility] 03-14-2022 13:12-0400 Heart rate 99 /min MD Howard Schumacher Work Phone: [facility] 03-14-2022 13:12-0400 Respiratory rate 16 /min MD Howard Schumacher Work Phone: [facility] 03-14-2022 13:12-0400 SaO2% (BldA) [Mass fraction] 98 % MD Howard Schumacher Work Phone: [facility] 03-14-2022 13:12-0400 Systolic blood pressure 165 mm[Hg] MD Howard Schumacher Work Phone: [facility] 03-07-2022 08:55-0400 Diastolic blood pressure 84 mm[Hg] MD Howard Schumacher Work Phone: [facility] 03-07-2022 08:55-0400 Heart rate 80 /min MD Howard Schumacher Work Phone: [facility] 03-07-2022 08:55-0400 Respiratory rate 20 /min MD Howard Schumacher Work Phone: [facility] 03-07-2022 08:55-0400 SaO2% (BldA) [Mass fraction] 95 % MD Howard Schumacher Work Phone: [facility] 03-07-2022 08:55-0400 Systolic blood pressure 135 mm[Hg] MD Howard Schumacher Work Phone: [facility] 03-07-2022 07:10-0400 Body height 165.1 cm MD Howard Schumacher Work Phone: [facility] 03-07-2022 07:10-0400 Body mass index (BMI) [Ratio] 27.3 kg/m2 MD Howard Schumacher Work Phone: [facility] 03-07-2022 07:10-0400 Body weight 74.38 kg MD Howard Schumacher Work Phone: [facility] 03-07-2022 06:11-0400 Body temperature 98 [degF] MD Howard Schumacher Work Phone: [facility] 02-18-2022 20:17-0400 Body mass index (BMI) [Ratio] 26.4 kg/m2 MD Howard Schumacher Work Phone: [facility] 02-18-2022 15:30-0400 Diastolic blood pressure 76 mm[Hg] MD Howard Schumacher Work Phone: [facility] 02-18-2022 15:30-0400 Heart rate 59 /min MD Howard Schumacher Work Phone: [facility] 02-18-2022 15:30-0400 Respiratory rate 16 /min MD Howard Schumacher Work Phone: [facility] 02-18-2022 15:30-0400 SaO2% (BldA) [Mass fraction] 95 % MD Howard Schumacher Work Phone: [facility] 02-18-2022 15:30-0400 Systolic blood pressure 136 mm[Hg] MD Howard Schumacher Work Phone: [facility] 02-18-2022 13:38-0400 Body temperature 97.9 [degF] MD Howard Schumacher Work Phone: [facility] 02-18-2022 13:38-0400 Inhaled oxygen flow rate 6 L/min MD Howard Schumacher Work Phone: [facility] 02-18-2022 11:06-0400 Body height 165.1 cm MD Hwoard Schumacher Work Phone: [facility] 02-18-2022 11:06-0400 Body weight 72 kg MD Howard Schumacher Work Phone: [facility] 01-29-2022 13:25-0400 Body temperature 97.2 [degF] MD Lisa Hennessy Work Phone: [facility] 01-29-2022 13:25-0400 Body weight 72.57 kg MD Lisa Hennessy Work Phone: [facility] 01-29-2022 13:25-0400 Diastolic blood pressure 90 mm[Hg] MD Lisa Hennessy Work Phone: [facility] 01-29-2022 13:25-0400 Heart rate 72 /min MD Lisa Hennessy Work Phone: [facility] 01-29-2022 13:25-0400 Respiratory rate 16 /min MD Lisa Hennessy Work Phone: [facility] 01-29-2022 13:25-0400 SaO2% (BldA) [Mass fraction] 98 % MD Lisa Hennessy Work Phone: [facility] 01-29-2022 13:25-0400 Systolic blood pressure 160 mm[Hg] MD Lisa Hennessy Work Phone: [facility] 01-29-2022 12:53-0400 Body height 165.1 cm MD Lisa Hennessy Work Phone: [facility] Encounters Encounter Date Encounter Type Care Provider Facility Start: 08-22-2024 End: 08-22-2024 ambulatory Howard Schumacher [facility] Work Phone: Start: 08-22-2024 End: 08-22-2024 [facility] Work Phone: Start: 08-11-2024 End: 08-11-2024 Bamboo flowsheet Bandar Espinosa DPM Work Phone: [facility] Start: 08-11-2024 End: 08-11-2024 Bamboo flowsheet Bandar Espinosa DPM Work Phone: [facility] Start: 08-11-2024 End: 08-11-2024 Office outpatient visit 15 minutes Bandar Espinosa DPM Work Phone: [facility] Comment on above: Onychocryptosis (Ely heidi Dx); Toe pain, left; Abscess, toe, left Start: 08-11-2024 End: 08-11-2024 ambulatory BANDAR ESPINOSA Not Available Start: 08-01-2024 End: 08-01-2024 Bamboo flowsheet Howard Schumacher MD Work Phone: [facility] Start: 08-01-2024 End: 08-01-2024 Bamboo flowsheet Howard Schumacher MD Work Phone: [facility] Start: 08-01-2024 End: 08-01-2024 ambulatory HOWARD SCHUMACHER Not Available Start: 08-01-2024 End: 08-01-2024 Office outpatient visit 15 minutes Howard Schumacher MD Work Phone: [facility] Comment on above: Arthralgia, unspecif ied joint (Primary Dx); Ductal carcinoma of right breast (CMS/HCC); Encounter for long-term (current) use of medications; Dyslipidemia (CMS/HCC) Start: 07-28-2024 End: 07-28-2024 Bamboo flowsheet Bandar Espinosa DPM Work Phone: [facility] Start: 07-28-2024 End: 07-28-2024 Bamboo flowsheet Bandar Espinosa DPM Work Phone: [facility] Start: 07-28-2024 End: 07-28-2024 Office outpatient new 30 minutes Bandar Espinosa DPM Work Phone: [facility] Comment on above: Abscess, toe, left ( Primary Dx); Onychocryptosis; Toe pain, left Start: 07-28-2024 End: 07-28-2024 ambulatory BANDAR ESPINOSA Not Available Start: 04-01-2024 End: 04-01-2024 Office outpatient visit 25 minutes Tone H Itmelissa DO Work Phone: [facility] Comment on above: 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, estrogen receptor positive (CMS/HCC) (Primary Dx) Start: 04-01-2024 End: 04-01-2024 ambulatory TONE H ITZKOWITZ Not Available Start: 02-11-2024 End: 02-11-2024 ambulatory MD Lisa Hennessy Work Phone: [facility] Work Phone: Start: 02-11-2024 End: 02-11-2024 Patient encounter procedure MD Lisa Hennessy Work Phone: [facility] Work Phone: Start: 02-11-2024 Registered Recurring MD Lisa fernandes Work Phone: [facility] Work Phone: Start: 02-01-2024 End: 02-01-2024 ambulatory HOWARD SCHUMACHER Not Available Start: 11-09-2023 End: 11-09-2023 ambulatory [employer] ITZRADHA Not Available Start: 09-29-2023 End: 09-29-2023 ambulatory Tone Itzkowitz Facility:[facility] Start: 09-24-2023 End: 09-24-2023 ambulatory [employer] ITZSHIRATZ Not Available Start: 07-28-2023 End: 07-28-2023 ambulatory MD Lisa Hennessy Work Phone: [facility] Work Phone: Start: 07-28-2023 End: 07-28-2023 Departed Referred MD Lisa Hennessy Work Phone: [facility] [place] Work Phone: Start: 07-02-2023 Registered Recurring MD Lisa fernandes Work Phone: [facility] Work Phone: Start: 04-16-2023 End: 04-16-2023 ambulatory MD Lisa Hennessy Work Phone: [facility] Work Phone: Start: 04-16-2023 End: 04-16-2023 Registered Recurring MD Lisa Hennessy Work Phone: [facility] Work Phone: Start: 03-12-2023 End: 03-12-2023 ambulatory MD Lisa Hennessy Work Phone: [facility] Work Phone: Start: 03-12-2023 End: 03-12-2023 Registered Recurring MD Lisa Hennessy Work Phone: [facility] Work Phone: Start: 12-31-2022 End: 12-31-2022 ambulatory MD Lisa Hennessy Work Phone: [facility] Work Phone: Start: 12-31-2022 End: 12-31-2022 Registered Recurring MD Lisa Hennessy Work Phone: [facility] Work Phone: Start: 09-11-2022 End: 09-11-2022 ambulatory MD Lisa Hennessy Work Phone: [facility] Work Phone: Start: 09-11-2022 End: 09-11-2022 Registered Recurring MD Lisa Hennessy Work Phone: [facility] Work Phone: Start: 06-18-2022 End: 06-18-2022 ambulatory MD Lisa Hennessy Work Phone: [facility] Work Phone: Start: 06-18-2022 End: 06-18-2022 Registered Recurring MD Lisa Hennessy Work Phone: [facility] Start: 04-02-2022 End: 04-02-2022 Registered Recurring MD Howard Schumacher Work Phone: [facility] Start: 03-14-2022 End: 03-14-2022 Registered Recurring MD Howard Schumacher Work Phone: [facility] Start: 03-07-2022 End: 03-07-2022 Admission to same day surgery center MD Howard Schumacher Work Phone: [facility] [place] Start: 03-05-2022 End: 03-05-2022 Patient encounter procedure MD Howard Schumacher Work Phone: [facility] Start: 02-18-2022 End: 02-18-2022 Admission to same day surgery center MD Howard Schumacher Work Phone: [facility] [place] Start: 02-14-2022 End: 02-14-2022 Patient encounter procedure MD Lisa Hennessy Work Phone: [facility] Start: 02-10-2022 End: 02-10-2022 Patient encounter procedure MD Lisa Hennessy Work Phone: [facility] Start: 02-07-2022 Registered Recurring MD Lisa fernandes Work Phone: [facility] Start: 01-01-2022 End: 01-01-[address] HOWARD SCHUMACHER Facility:[facility] Start: 12-25-2021 End: 12-26-[address] HOWARD SCHUMACHER Facility:[facility] Start: 12-13-2021 Encounter for genera l adult medical examination without abnormal findings DR HOWARD SCHUMACHER [facility] Start: 12-09-2021 End: 12-10-[address] HOWARD SCHUMACHER Facility:[facility] Start: 12-09-2021 End: 12-10-2021 Encounter for general adult medical examination without abnormal findings DR HOWARD SCHUMACHER Facility:[facility] Procedures Date Procedure Procedure Detail Performing Clinician Start: 12-31-2023 Ultrasonography of limb MD Lisa Hennessy Work Phone: Start: 12-31-2023 Bilateral mammography M Radha Hennessy Work Phone: Start: 03-23-2023 NM bone scan whole body MD Lisa Hennessy Work Phone: Start: 12-29-2022 Bilateral mammography M Radha Hennessy Work Phone: Start: 04-10-2022 Dual energy X-ray absorptiometry MD Lisa Hennessy Work Phone: Start: 03-07-2022 OR Wound Debridement/I&D/Hydradenitis (Right) MD Howard Schumacher Work Phone: Start: 02-18-2022 Lumpectomy of right breast MD Howard Schumacher Work Phone: Start: 02-18-2022 Radionuclide sentine l lymph node study MD Howard Schumacher Work Phone: Start: 02-04-2022 Ultrasonography of limb MD Lisa Hennessy Work Phone: Plan of Treatment Date Care Activity Detail Author Start: 02-06-2025 End: 02-06-2025 Patient encounter procedure 02/06/2025 11:30 AM EDT Office Visit [facility] [address] [place] [id number] Howard Schumacher MD [address] [place] [id number] [facility] Start: 10-06-2024 End: 10-06-2024 Patient encounter procedure 10/06/2024 11:10 AM EDT Procedure Visit [facility] 112 [facility] [address] [place] [id number] Bandar Espinosa, HERMILO [address] [facility] [address] [place] [address] [facility] Start: 09-30-2024 End: 09-30-2024 Patient encounter procedure 09/30/2024 10:15 AM EST Office Visit [facility] [address] [facility] [address] [place] [address] Tone Magana, [address] [employer] [address] [place] [address] [address] [facility] Start: 08-11-2024 End: 08-11-2024 Patient encounter procedure [facility] Comment on above: Onychocryptosis (Ely heidi Dx); Toe pain, left; Abscess, toe, left Start: 08-04-2024 Screening for malign ant neoplasm of colon Colorectal Cancer Screening [facility] Comment on above: Postponed from 04/18 (Patient Refused) Start: 08-01-2024 End: 08-01-2025 Basic metabolic 1998 panel - Serum or Plasma Basic metabolic panel Lab Routine Encounter for long-term (current) use of medications Expected: 08/01/2024 (Approximate), Expires: 08/01/2025 [facility] Work Phone: Comment on above: Expected: 08/01/2024 (Approximate), Expires: 08/01/2025 Start: 08-01-2024 End: 08-01-2025 CBC W Auto Differential panel - Blood CBC and differential Lab Routine Encounter for long-term (current) use of medications Expected: 08/01/2024 (Approximate), Expires: 08/01/2025 [facility] Comment on above: Expected: 08/01/2024 (Approximate), Expires: 08/01/2025 Start: 08-01-2024 End: 08-01-2025 Hepatic function 2000 panel - Serum or Plasma Hepatic function panel Lab Routine Encounter for long-term (current) use of medications Expected: 08/01/2024 (Approximate), Expires: 08/01/2025 [facility] Comment on above: Expected: 08/01/2024 (Approximate), Expires: 08/01/2025 Start: 08-01-2024 End: 08-01-2025 Lipid 1996 panel - Serum or Plasma Lipid panel Lab Routine Dyslipidemia (CMS/HCC) Expected: 08/01/2024 (Approximate), Expires: 08/01/2025 [facility] Comment on above: Expected: 08/01/2024 (Approximate), Expires: 08/01/2025 Start: 08-01-2024 End: 08-01-2024 Patient encounter procedure 08/01/2024 1:00 PM EST Office Visit [facility] [address] [place] [address] Howard Schumacher MD [address] [place] [id number] [facility] Start: 07-28-2024 End: 07-28-2024 Patient encounter procedure 07/28/2024 11:00 AM EST Office Visit [facility] [address] [place] [address] [place] [id number] Bandar Espinosa DPM [address] [address] Arrived [facility] Comment on above: Arrived Start: 03-27-2024 Influenza vaccination Influenza Vacc ine (#1) [facility] Start: 03-14-2022 Registered Recurring [id number] [facility] Start: 03-07-2022 [facility] Work Phone: Start: 03-07-2022 OR Wound Debridement/I&D/Hydradeni tis (Right) OR Wound Debridement/I&D/Hydrad enitis (Right) [facility] Start: 03-07-2022 [facility] Work Phone: Start: 03-07-2022 End: 03-07-2022 Admission to same day surgery center Departed Surgical Day Care [facility] [place] Start: 03-05-2022 End: 03-05-2022 Patient encounter procedure Departed Clinical [facility] Start: 02-18-2022 [facility] Work Phone: Start: 02-18-2022 [facility] Work Phone: Start: 06-11-2000 Pneumococcal Vaccine : 65+ Years (2 of 2 - PCV) Pneumococcal Vaccine: 65+ Years (2 of 2 - PCV) [facility] Start: 1988 Screening for malign ant neoplasm of cervix [facility] Start: 1979 Screening for malign ant neoplasm of cervix Pap Smear [facility] Start: 1960 Medicare Annual Well ness (AWV) Medicare Annual Wellness (AWV) [facility] Start: 1960 Screening for malign ant neoplasm of colon [facility] Adenosine monophosphate.cyclic [Moles/volume] in Serum or Plasma [facility] Comprehensive metabo lic 2000 panel - Serum or Plasma [facility] DXA Skeletal system. axial Views for bone density [facility] Work Phone: DXA Skeletal system. axial Views for bone density [facility] Homogenous nuclear A b pattern [Titer] in Serum [facility] MG Breast - bilatera l Diagnostic [facility] MG Breast - bilatera l Diagnostic [facility] MG Breast - bilatera l Screening [facility] Needle biopsy [facility] Work Phone: NM Whole body Bone Views [facility] Nuclear Ab [Titer] i n Serum [facility] Patient Education Anastrozole [facility] Work Phone: Patient referral [facility] Work Phone: Rheumatoid factor [Units/volume] in Serum or Plasma [facility] Ultrasonic guidance for needle biopsy [facility] Immunizations Immunization Date Immunization Notes Care Provider Fa cility 06-04-2023 RSV, recombinant, protein subunit RSVpreF, adjuvant reconstitu, 120mcg/0.5mL, PF (Arexvy) Tone Itzkowitz DO Work Phone: [facility] 05-21-2023 Influenza, Seasonal, Quadrivalent, Adjuvanted Tone Itzkowitz DO Work Phone: [facility] 05-21-2023 influenza virus vacc ine, unspecified formulation Tone Itzkowitz DO Work Phone: [facility] 05-13-2022 influenza, injectabl e, quadrivalent, preservative free Tone Itzkowitz DO Work Phone: [facility] 10-29-2021 COVID-19 mRNA-1273 (Moderna) MD Lisa Hennessy Work Phone: [facility] 06-19-2021 COVID-19 mRNA-1273 (Marta) MD Lisa Hennessy Work Phone: [facility] 06-19-2021 influenza, injectabl e, quadrivalent, preservative free Tone Itzkowitz DO Work Phone: [facility] 10-26-2020 COVID-19 mRNA-1273 (Moderna) MD Lisa Hennessy Work Phone: [facility] 09-28-2020 COVID-19 mRNA-1273 (Marta) MD Lisa Hennessy Work Phone: [facility] 04-05-2020 influenza, injectabl e, quadrivalent, preservative free Tone Itzkowitz DO Work Phone: [facility] 06-11-1999 pneumococcal polysaccharide vaccine, 23 valent Tone Itzkowitz DO Work Phone: [facility] Healthcare Payers Date Payer Category Payer Medicare (Managed Care) [employer] [id number] 2024 Unknown [employer] [id number] 2024-Present [address] [address] [id number] 2024 Unknown [id number] 2023 Self-pay [id number] 2023 Medicare [id number] 1959 Unknown [id number] 1958 Unknown [id number]. 593 1958 Unknown [id number] [id number]. 593 1958 Unknown [id number] 2.16.840.1.300087.3.579.2. 593 1958 Unknown [id number] [id number]. 1259 1958 Unknown [id number] 2.16.840.1.638230.3.579.2. 1259 1958 Unknown [id number] 2.16.840.1.594825.3.579.2. 1259 1958 Unknown [id number] 2.16.840.1.465015.3.579.2. 1259 1958 Unknown [id number] 2.16.840.1.827855.3.579.2. 1259 1958 Unknown [id number] 2.16.840.1.870666.3.579.2. 1259 1958 Unknown [id number] 2.16.840.1.301181.3.579.2. 1259 Unknown Casandra Brownlee [facility] [id number] Unknown [id number] [id number]. 531 Unknown [id number] [id number]. 531 Social History Date Type Detail Facility Start: 04-12-1992 End: 04-12-2022 Tobacco smoking status [facility] Smoker (finding) [facility] Start: 1960 Sex Assigned At Female F [facility] Start: 06-11-2022 End: 08-22-2024 Tobacco smoking status AKIS Ex-smoker (finding) [facility] Start: 04-12-1992 End: 04-12-2022 History of tobacco use Cigarette Smoker [facility] Start: 08-04-2023 End: 04-01-2024 Cigarettes smoked current (pack per day) - Reported 0.5 [facility] Start: 04-01-2024 Tobacco use and exposure Smokeless tobacco non-user [facility] Start: 04-01-2024 End: 08-01-2024 Alcoholic beverage intake Current drinker of alcohol (finding) [facility] Start: 08-04-2023 End: 04-01-2024 Tobacco use panel [facility] Start: 07-10-2023 Tobacco Comment Last smoked : 1-3 months [facility] Start: 07-10-2023 Alcohol Comment caffeine intak e : soda/pop; coffee [facility] Start: 1960 Sex assigned at Not on file [facility] Start: 08-22-2024 Sex Female (finding) [facility] Goals Date Patient Goal Desired Activity /State Clinical Notes 01-30-2022 to 08-11-2024 Bandar Espinosa DPM - 08/11/2024 10:50 AM Rob Schumacher MD - 08/01/2024 1:33 PM Rob Schumacher MD - 08/01/2024 1:33 PM Rob Schumacher MD - 08/01/2024 1:00 PM EST Note Date & Type Note Facility 08-11-2024 History of Presen t illness Narrative Patient: Denia Al : 1960 PCP: Howard Schumacher MD SUBJECTIVE This is a 64 y.o. female that presents today 14 d s/p permanent nail avulsion with nail avulsion to the left 2nd toenail Pt states that they have been following all post op instructions and have been taking antibiotic as prescribed. Pt denies n/f/v/c and has negative pain at post op site. Pt states negative drainage from the postop site. Pt presents today for postoperative follow up. Allergies: Allergies Allergen Reactions Penicillin G Unknown Past Medical History: Past Medical History: Diagnosis Date Acute tonsillitis At low risk for fall Breast cancer (CMS/HCC) [facility] [place] + Her2 neg Genetic testing negative Measles Overweight (BMI 25.0-29.9) Medications: Current Outpatient Medications: anastrozole (Arimidex) 1 MG chemo tablet, Take 1 mg by mouth Daily., Disp: , Rfl: Ascorbic Acid (vitamin C) 1000 MG tablet, 1 (one) time each day at the same time., Disp: , Rfl: calcium carbonate (Os-Satya) 1250 (500 Ca) MG tablet, 1 (one) time each day at the same time., Disp: , Rfl: cholecalciferol (Vitamin D3) 25 MCG (1000 UT) tablet, 1 (one) time each day at the same time., Disp: , Rfl: docusate sodium (Colace) 100 MG capsule, take 1 capsule by mouth every morning and BEFORE BEDTIME, Disp: , Rfl: meloxicam (Mobic) 15 MG tablet, Take 1 tablet (15 mg) by mouth Daily, Disp: 30 tablet, Rfl: 11 ROS: General: denies fever, chills, fatigue, malaise GI: denies loose or watery stool on antibiotic OBJECTIVE LE EXAM: DERM: Negative erythema, negative drainage from the left 2nd toenail VASC: Palpable pedal pulses bilaterally NEURO: Gross sensation intact to bilateral feet ORTHO: Minimal pain on palpation to the amfi1cl toe nail ASSESSMENT 14 d s/p permanent nail avulsion to the left 2nd toenail 1. Onychocryptosis 2. Toe pain, left 3. Abscess, toe, left PLAN Pt to d/c abx. Patient to continue with OTC oral anti - inflammatories as needed for pain. Pt to keep DSD on area of interest while in shoegear, otherwise may expose to air in a clean environment. Bandar Espinosa DPM documented in this encounter [facility] 08-01-2024 History of Presen t illness Narrative Associated Problem(s): Ductal carcinoma of right breast (CMS/HCC) Follow with oncology. Associated Problem(s): Arthralgia Pain stable and continue mobic. If worsens would need to repeat labs and refer to rheum. Images from the original note were not included. Subjective Patient ID: Denia Al is a 64 y.o. female who presents for Follow-up (6 m ). Follow up joint pain. Patient feels well today. Pain tolerable with mobic. C/o pain in multiple joints including shoulders, arms, back, and legs. Not as stiff or sore. Able to walk and stay active. Continues to have pain but mild and able to function well. Following with oncology and general surgery for breast cancer and doing well. Due for labs. Review of Systems Respiratory: Negative for cough, shortness of breath and wheezing. Cardiovascular: Negative for chest pain and palpitations. Gastrointestinal: Negative for abdominal pain, diarrhea, nausea and vomiting. Genitourinary: Negative for dysuria. Objective Physical Exam Constitutional: General: She is not in acute distress. Appearance: Normal appearance. HENT: Head: Normocephalic. Right Ear: Tympanic membrane normal. Left Ear: Tympanic membrane normal. Eyes: Extraocular Movements: Extraocular movements intact. Pupils: Pupils are equal, round, and reactive to light. Cardiovascular: Rate and Rhythm: Normal rate and regular rhythm. Heart sounds: No murmur heard. No friction rub. No gallop. Pulmonary: Effort: Pulmonary effort is normal. Breath sounds: Normal breath sounds. No wheezing, rhonchi or rales. Abdominal: General: Bowel sounds are normal. There is no distension. Palpations: Abdomen is soft. Tenderness: There is no abdominal tenderness. There is no guarding or rebound. Musculoskeletal: Cervical back: Neck supple. Right lower leg: No edema. Left lower leg: No edema. Neurological: Mental Status: She is alert. Assessment/Plan Problem List Items Addressed This Visit Arthralgia - Primary Pain stable and continue mobic. If worsens would need to repeat labs and refer to rheum. Ductal carcinoma of right breast (CMS/HCC) Follow with oncology. Encounter for long-term (current) use of medications Relevant Orders Basic metabolic panel CBC and differential Hepatic function panel Dyslipidemia (CMS/HCC) Relevant Orders Lipid panel documented in this encounter [facility] 07-28-2024 History of Presen t illness Narrative Patient: Denia Al : 1960 PCP: Howard Schumacher MD SUBJECTIVE This is a 64 y.o. female that presents today with a CC of ingrowing left and digit toenail Pt states problem has been present for the past few weeks. Pt has noticed positive drainage to the affected area and states pain is achey in nature. Treatments have consisted of soaking and trying to remove the ingrown nail on their own with no relief. Patient has had longstanding issue with ingrowing nail and presents today for treatment Allergies: Allergies Allergen Reactions Penicillin G Unknown Past Medical History: Past Medical History: Diagnosis Date Acute tonsillitis At low risk for fall Breast cancer ([facility]) [facility] [place] + Her2 neg Genetic testing negative Measles Overweight (BMI 25.0-29.9) Medications: Current Outpatient Medications: anastrozole (Arimidex) 1 MG chemo tablet, Take 1 mg by mouth Daily., Disp: , Rfl: meloxicam (Mobic) 15 MG tablet, Take 1 tablet (15 mg) by mouth Daily, Disp: 30 tablet, Rfl: 11 Ascorbic Acid (vitamin C) 1000 MG tablet, 1 (one) time each day at the same time., Disp: , Rfl: calcium carbonate (Os-Satya) 1250 (500 Ca) MG tablet, 1 (one) time each day at the same time., Disp: , Rfl: cholecalciferol (Vitamin D3) 25 MCG (1000 UT) tablet, 1 (one) time each day at the same time., Disp: , Rfl: docusate sodium (Colace) 100 MG capsule, take 1 capsule by mouth every morning and BEFORE BEDTIME, Disp: , Rfl: mometasone (Elocon) 0.1 % cream, apply topically to RADIATION SITE DAILY AFTER RADIATION, Disp: , Rfl: Stool Softener/Laxative 50-8.6 MG tablet, take 1 tablet by mouth every 12 hours if needed for constipation, Disp: , Rfl: Social History: Social History Socioeconomic History Marital status: Spouse name: Not on file Number of children: Not on file Years of education: Not on file Highest education level: Not on file Occupational History Not on file Tobacco Use Smoking status: Former Current packs/day: 0.00 Average packs/day: 0.5 packs/day for 30.0 years (15.0 ttl pk-yrs) Types: Cigarettes Start date: 04/12/1992 Quit date: 04/12/2022 Years since quittin.2 Smokeless tobacco: Never Tobacco comments: Last smoked : 1-3 months Substance and Sexual Activity Alcohol use: Yes Alcohol/week: 7.0 - 9.0 standard drinks of alcohol Types: 7 - 9 Standard drinks or equivalent per week Comment: caffeine intake : soda/pop; coffee Drug use: Never Sexual activity: Not on file Other Topics Concern Not on file Social History Narrative Not on file Social Drivers of Health Financial Resource Strain: Not on file Food Insecurity: Not on file Transportation Needs: Not on file Physical Activity: Not on file Stress: Not on file Social Connections: Not on file Intimate Partner Violence: Not on file Housing Stability: Not on file ROS: General: denies fever, chills, fatigue, malaise Gastrointestinal: denies abdominal pain, ulcers, or changes in appetite or bowel habits Musculoskeletal: denies arthritis, denies loss of strength, pain to hip, knees, back Cardiovascular: denies CP, palpitations, irregular rhythms OBJECTIVE LE EXAM: DERM: Positive erythema and serous sanguinous drainage from the left 2nd toenail with hair growth noted to b/l feet. VASC: Palpable pedal pulsed b/l with warm to cool tibia to toes b/l NEURO: Gross sensation intact digits 1-10 and b/l feet ORTHO: Ankle ROM less than 10 degrees b/l. Positive pain on palpation to left 2nd toenail ASSESSMENT 1. Abscess, toe, left 2. Onychocryptosis 3. Toe pain, left PLAN Patient to continue with oral anti - inflammatories as needed for pain and recommended OTC medications such as tylenol or Ibuprofen Discussed possible treatment options including a permanent nail avulsion Perfomed TPN avulsion to the left toenail. Informed pt of risks/ benefits of procedure including infection,reoccurance,pain, bleeding. Pt consents. 3cc of xylocaine 2% plain injected into the affected digit and tournicut applied to affected digit for 3 minutes. The affected toe was prepped/draped in a sterile manner and the offending nail border removed and 3 phenol applications of 30 seconds a peice to nail matrix. Alcohol flush applied and tournicut released with prompt hyperemic response. Patient was given a prescription for an antibiotic Bandar Espinosa DPM documented in this encounter [facility] 04-16-2023 Progress note Note Date/Time April 16, 2023 12:44pm [facility] [place] [address] Hem/Onc Follow Up Note - OP Signed Patient: Denia Al MR#: [id number] : 1960 Acct:[id number] Age/Sex: 62 / F Type: REG RCR Copies to: MD Howard Kay MD~ Subjective Date/Time of Service: Date of Service: 04/16/2023 Time of Service: 12:37 Chief Complaint: Patient is here for a one month follow up with bone scan for review. Anastrozole held. Patient reports no improvement in joint pain. HPI: 04/16/2023: Denia is here for interval 1 month follow up visit. Has had negative NM bone scan - ordered because of diffuse arthralgias/myalgias. She hasnow been off all endocrine therapy x 6 weeks; with essentially no improvement inher joint symptoms. She is agreeable to go back on anastrazole. In regards to breast cancer; no changes on self exam; had negative mammogram and exam in December 2022. Will see Dr. Magana again on June 15, 2023. She had follow up CT scan of [facility] abdomen/pelvis done at [facility] yesterday. This was done to evaluate her post operatively after large, non malignant adnexal mass was removed on 01/21/2023 at [facility]. Denies weight loss, lymphadenopathy, chest pain, SOB, cough, breast changes. As previously noted, we check RF and CCP antibody - whichwas negative; however, her [place] levels returned abnormal with a relatively high titer level. She was referred to rheumatology on 03/13/2023; but patient noted change in insurance and has not yet seen rheumatology. We will arrange for this to be done again, today. 03/12/2023: Denia is seen again today for add on visit. She was seen about 3 weeks ago with myalgias/arthralgias; felt to be related to anastrazole. We had adiscussion about changing medication vs stopping medication for 2 weeks and restarting. At that time, she elected to hold anastrazole x 2 weeks and restart.She does feel like she had some improvement - maybe 30% improved off anastrazole. She restarted anastrazole 1 week ago and is seen today again due torecurrence of profound myalgias/arthralgias; particularly involving her bilateral shoulders, bilateral hips, low back, feet and bilateral hands. She hasnotable synovitis involving her MCP joints bilaterally and is significantly tender to touch in the shoulders and proximal upper extremities. No history of rheumatological or autoimmune conditions. No changes on self breast exam, deniesweight loss, abdominal pain, lymphadenopathy. 02/19/2023: Denia is here for add on visit; just seen about 6-7 weeks ago with no evidence of recurrence - negative mammogram. She was added on today due to concerns and untoward side effects related to her adjuvant endocrine therapy with anastrazole. Of note, she was started on anastrazole in April 2022. She was in her usual state of health until January 21, 2023 when she experienced severe, stabbing right lower quadrant abdominal pain that prompted urgent evaluation in the emergency department. Upon further work-up, she was found to have a very large right adnexal mass measuring ~ 13 cm. She was urgently transferred to [facility] and underwent total hysterectomy, bilateral salpingo-oophorectomy and lysis of adhesions on January 21, 2023. 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 Upon discharge from the hospital she has noted more significant hot flashes, fatigue and arthralgias associated with her AI therapy. Initially, she seems to have done well with anastrazole but has just not been the same since having her surgery 1 month ago. Otherwise, no changes onself breast exam, new bony pain, weight loss, abdominal pain, nausea/vomiting orheadaches. Last follow up with surgery was 10 days ago, saw Dr. Magana on 02/04/2023. 12/31/2022: Denia is here for 4-month follow-up on endocrine therapy for early-stage hormone positive breast cancer. She is tolerating anastrozole reasonably well without significant hot flashes or fatigue. She does have some occasional joint aches which are stable with use of ibuprofen. No changes on self breast exam and 1 year mammogram did not show any evidence of recurrence. She has regular follow-up with Dr. Magana of general surgery, next evaluation in January. Okay to extend her follow-up from medical oncology to every 6 months or sooner if she has new clinical concerns. 09/11/2022: Denia is here for interval 3-month follow-up on adjuvant endocrine therapy with anastrozole for early stage, hormone positive breast cancer. She denies any significant hot flashes or fatigue. She does not some increased arthralgias in the shoulders, elbows, wrists and knees since starting anastrazole. She takes Ibuprofen as needed and reports this to be tolerable for the time being. She is due for next mammogram in December 2022. Saw Dr. Magana 1 month ago on 08/04/2022 with normal exam. She reports no other changes or concerns. No changes on self breast exam or new areas of pain. 06/11/2022: Denia completed radiation therapy 3 weeks ago with start of anastrozole therapy. She denies any significant hot flashes, arthralgias or myalgias. She has intermittent tenderness in radiation field but no breast or arm lymphedema. Baseline DEXA from 04/10/2022 showed normal bone density (T score -0.6) lumbar spine, osteopenia (T score -1.4 left femoral neck, T score -1.5 right femoral neck) bilateral hips. We are adding calcium with vitamin D and patient may check Vit D level with primary care. Continue anastrozole 1mg daily. OK for 3 month f/u with [facility] and 6 month f/u with me, sooner if new issuesarise. 04/02/2022: Denia is here to review results of Oncotype DX from her original lumpectomy specimen. She has not had any further issues with her seroma. I discussed in detail her recurrence score of 18 which corresponds to a 5% recurrence risk at 9 years and no benefit to chemotherapy with age greater than 50. We discussed typical approach after lumpectomy is to proceed to radiation therapy and she will have consult today. We discussed options for hormonal therapy including tamoxifen versus aromatase inhibitors. She still has intact uterus and there is increased risk of endometrial cancer and thrombosis with tamoxifen and therefore aromatase inhibitor is recommended. We discussed side effects of aromatase inhibitor such as hot flashes, lower bone density, and about 20% incidence of myalgias and arthralgias. She will have baseline DEXA scan and will commence anastrozole 1 mg daily following her radiation therapy. I will see her at the end of 4 weeks of anastrozole to review side effects and to determine if she may continue 5 to 7 years of adjuvant hormonal therapy. Allquestions answered to the patient and her over this 35-minute visit to review Oncotype findings, counseling for radiation and AI therapy. 03/14/2022: Denia completed right upper outer quadrant lumpectomy by Dr. Magana on and is here to review pathology results and recommendations for adjuvant therapy. She had to return to OR for evacuation ofa large hematoma in biopsy cavity on 03/05/2022 and continues followup with Dr. Magana. I reviewed pathology results showing Invasive Lobular Carcinoma, [place] histologic score 8/9 (score 3), size 50mm, margins negative for carcinoma, ER 95%, KY 95%, Her2 1+ by IHC, negative. 2 sentinel lymph nodes negative for involvement by tumor. pT2 pN0 Mx. Interestingly, original pathology was invasive ductal carcinoma (lumpectomy final pathology invasive lobular carcinoma). --No residual fullness or pain at surgical site. Discussed Oncotype Dx--will send pathology for testing and followup in 2 weeks. Moderate complexity 35 minute followup visit. 02/07/2022: Phone followup today to discuss [facility] tumor board discussion forplan with Dr. Magana for invasive ductal carcinoma of right breast. I contacted patient today after discussion in [facility] Tumor Board this am. Right axillary ultrasound was negative for adenopathy. Since HER2 is indeterminate and node negative, we recommended upfront lumpectomy. She will schedule with Dr. Magana and I will meet with her 2 weeks post operatively todiscuss pathology results and adjuvant therapy options. - Reason for Consultation: Palpable right breast mass--biopsy in December 2021 shows invasive ductal carcinoma (provisional grade 2) ER 95%, KY 95%, Her-2 equivocal IHC 1+ with equivocal FISH(HER2/CEP 17 1.4; Her2 copy number 4.0). Discussion of options for possible neoadjuvant therapy vs. upfront surgery. ORIGINAL CONSULT: 01/29/2022: This is a 62 year old female with minimal comorbidities who noted a fullness of right upper outer quadrant of breast--nontender, no skin erythema or dimpling, no nipple deviation or discharge, no obvious axillary fullness. She is , age 29 with first . Postmenopausal--no prior hysterectomy or oophorectomy, no history of hormone replacement therapy. + family history of a maternal aunt with breast cancer ( in 90s of natural causes). No family history of ovarian or other cancers. I reviewed her [facility] mammography 12/25/21 and ultrasound 01/01/2022 reports. Breast mass is about 3.6cm in greatest dimension on US (3.8 cm on mammogram). US guided breast biopsy on 01/01/2022 revealed invasive ductal carcinoma (provisional grade 2) ER 95%, KY 95%, Her-2 equivocal IHC 1+ with equivocal FISH (HER2/CEP 17 1.4; Her2 copy number 4.0). I discussed the case initially with Dr. Magana prior to referral and I discussed results above with the patient and her . Due to equivocal results of initial HER2 studies on breast biopsy, I recommended right axillary US with biopsy. If no enlarged axillary LN or axilla biopsy negative for cancer, she may proceed with upfront surgery. If biopsy is + for cancer, especially if Her2 positive, she should return to consent for neoadjuvant chemotherapy with TCHP. Following her US and biopsy within the next week, I will discuss her case at [facility] tumor board 02/03/2022 then coordinate phone followup to discuss multidisciplinary planof care. DIAGNOSIS: New diagnosis right upper inner quadrant breast cancer 3.6cm primary by US (clinical T2 Nx Mx) --01/01/2022 biopsy: invasive ductal carcinoma (provisional grade 2) ER 95%, KY 95%, Her-2 equivocal IHC 1+ with equivocal FISH (HER2/CEP 17 1.4; Her2 copy number 4.0). --02/18/2022 lumpectomy with sentinel lymph node biopsy: Invasive Lobular Carcinoma, [place] histologic score 8/9 (score 3), size 50mm, margins negative for carcinoma, ER 95%, KY 95%, Her2 1+ by IHC, negative. 2 sentinel lymph nodes negative for involvement by tumor. pT2 pN0 Mx. - Summary of Therapies Summary of Therapies: 02/18/2022 Right breast lumpectomy with sentinel lymph node biopsy. 04/01/2022: Oncotype results 18 therefore no indication for adjuvant chemotherapy. 04/24-05/20/2022: Completed Adjuvant radiation 4,005 cGy left breast (15 fractions over 20 days) and 1,000 cGy boost to cavity (4 fractions over 5 days) 05/21/2022: Anastrozole 1 mg daily to complete 5-year course. * 02/19/2023: HELD anastrazole x 2 weeks due to grade 2 myalgias/arthralgias * Resumed 03/02/2023- 03/12/2023 * 03/12/2023: HOLD again (advise 4 weeks) - if improvement - will need to addresschanging to Letrozole vs Tamoxifen * 04/16/2023: Resume anastrozole. Joint aches/pains unchanged, despite holding therapy x 6 weeks. Negative NM bone scan. Positive [place] and referral to rheumatology. ROS Details: All systems reviewed & no additional complaints except as documented Subjective/ROS - Narrative: CONSTITUTIONAL: Negative for fatigue, negative for fever or night sweats. HEAD AND NECK: Negative for changes in hearing and vision. Negative for mouth ulcers, nasal congestion and nasal drainage. PULMONARY: Negative for chest pain, cough and dyspnea. CARDIOVASCULAR: Negative for claudication and irregular heartbeat/palpitations. GASTROINTESTINAL: Negative for abdominal pain, constipation, decreased appetite,diarrhea and vomiting. GENITOURINARY: Negative for dysuria and hematuria. ENDOCRINE: Negative for cold intolerance and heat intolerance--no hot flashes onanastrozole therapy. Right upper inner quadrant palpable mass since 10/2021, nowwell-healed since lumpectomy 02/18 then evacuation of hematoma 03/07/2022. CENTRAL NERVOUS SYSTEM: Negative for gait disturbance and headache. PSYCHIATRIC: Negative for anxiety or depression. DERMATOLOGICAL: Negative for pruritus and rash. Negative for suspicious skin lesions. No skin discoloration or dimpling over left breast. MUSCULOSKELETAL: Significant arthralgias/myalgias on anastrazole; unchanged despite holding therapy x 6 weeks. HEMATOLOGICAL: Negative for bleeding and easy bruising. Negative for history of transfusion or thromboembolic disease ALLERGY: Negative for environmental allergies and food allergies. [facility] - Medical History Medical History: Medical History (Last Reviewed 01/01/23 @ 08:39 by Lisa Hennessy MD) Breast cancer current rt Smoker - Surgical History Surgical History: Surgical History (Last Updated 02/19/23 @ 14:39 by Lamar Barba) H/O lumpectomy 01/2022 H/O splenectomy H/O tubal ligation History of lumpectomy of right breast -benign History of right salpingo-oophorectomy 01/21/2023 Hx of appendectomy Hx of tonsillectomy Status post laparoscopy with lysis of adhesions 01/21/2023 Status post total abdominal hysterectomy 01/21/2023 - Family History Family History: Family History (Last Reviewed 01/01/23 @ 08:39 by Lisa Hennessy MD) Father Liver cancer Diabetes Mother Hypertension Diabetes Heart disease Sister Diabetes - Social History Smoking Status: Former smoker Tobacco Type: cigarettes Substance Use Type: Alcohol Home Medications & Allergies Allergies penicillin G Adverse Reaction (Verified 12/31/22 13:20) convulsions Home Medications anastrozole 1 mg tablet 1 mg PO DAILY 90 days #90 tabs 06/11/22 [Rx Confirmed 03/12/23] calcium 500 mg tablet 1,000 mg PO DAILY 09/11/22 [History Confirmed 04/16/23] cholecalciferol (vitamin D3) 25 mcg (1,000 unit) tablet (Vitamin D3) 25 mcg PO DAILY 09/11/22 [History Confirmed 04/16/23] ibuprofen 800 mg tablet 800 mg PO TID 03/12/23 [History Confirmed 04/16/23] acetaminophen 500 mg tablet 500 mg PO DIRECTED 04/16/23 [History Confirmed 04/16/23] Objective - Resuscitation Status Resuscitation Status: Full Code - Height/Weight Height/Weight: Height 5 ft 5 in Weight 77.836 kg - Vital Signs Vital Signs: 04/16/23 11:06 Temperature 98.1 F Pulse Rate [Left Brachial] 63 Respiratory Rate 20 Blood Pressure [Left Arm] 131/87 02 Sat by Pulse Oximetry 99 Oxygen Delivery Method Room Air - Pain Generalized Pain Intensity: 6 Physical Exam Narrative: CONSTITUTIONAL: The patient is in no acute distress. HEAD / FACE: Normocephalic. EYES: Pupils are equal and reactive to light. Conjunctivae and lids are benign in appearance. Ocular movement intact. EARS: Hearing grossly intact. Limited BREAST EXAM: Right breast well healed incision without mass right upperinner quadrant. No skin erythema or dimpling. No nipple discharge or deviation NOSE / MOUTH / THROAT: Nose, mouth, tongue and oropharynx are benign in appearance. No signs of inflammation. NECK / THYROID: Neck is supple. Thyroid is symmetrical, without thyromegaly, masses or palpable nodules. LYMPHATIC: No palpable cervical, supraclavicular, infraclavicular, or inguinal adenopathy. No left axillary adenopathy. Resolved fullness right axilla. RESPIRATORY: Normal to inspection. Lungs clear to auscultation and percussion. No wheezing, rales, rhonchi or rubs. Normal effort. CARDIOVASCULAR: Regular rate and rhythm. No murmurs, gallops, or rubs. VASCULAR: Carotid, radial, femoral and pedal pulses present bilaterally. No bruits. ABDOMEN: Bowel sounds normoactive. Soft, nontender and non-distended. No hepatosplenomegaly. No masses. GENITOURINARY: No CVA tenderness. No suprapubic fullness or tenderness. No groinadenopathy. INTEGUMENTARY: The skin is unremarkable. No rashes. No suspicious lesions BACK / SPINE: The back is nontender. MUSCULOSKELETAL: Normal musculature, bilateral shoulder tenderness; diffuse tenderness in bilateral proximal upper extremities; synovitis involving bilateral 1st-3rd MCP's. EXTREMITIES: No edema, cyanosis or clubbing. No Merle sign. NEUROLOGICAL: Alert and oriented. Cranial nerves intact. No gross motor or sensory deficits. PSYCHIATRIC: No anxiety or evidence of depression. - ECOG Performance Status ECOG Score: 0 Results - Labs Labs: Diagram of Most Recent CBC and CMP 03/12/23 14:15 03/12/23 14:15 Assessment and Plan - TNM Staging Staging: Right upper inner quadrant breast cancer 3.6cm primary by US (clinical T2 Nx Mx) --02/18/2022: Right lumpectomy/sentinel lymph node biopsy now Invasive Lobular Carcinoma, [place] histologic score 8/9 (score 3), size 50mm, margins negative for carcinoma, ER 95%, KY 95%, Her2 1+ by IHC, negative. 2 sentinel lymph nodes negative for involvement by tumor. pT2 pN0 Mx. (1) Malignant neoplasm of upper-inner quadrant of right breast in female, estrogen receptor positive This is a now 62 year old female with minimal comorbidities who noted a fullnessof right upper outer quadrant of breast in October 2021. Subsequent mammogram, US, and biopsy confirmed a 3.6cm invasive ductal carcinoma (provisional grade 2)ER 95%, KY 95%, Her-2 equivocal IHC 1+ with equivocal FISH (HER2/CEP 17 1.4; Her2 copy number 4.0). I discussed the case initially with Dr. Magana prior to referral and I discussed results above with the patient and her . Due to equivocal results of initial HER2 studies on breast biopsy, I recommended right axillary US with biopsy. If no enlarged axillary LN or axilla biopsy negative for cancer, she may proceed with upfront surgery. If biopsy is + for cancer, especially if Her2 positive, she should return to consent for neoadjuvant chemotherapy with TCHP. Following her US and biopsy within the next week, I will discuss her case at [facility] tumor board 02/03/2022 then coordinate phone followup to discuss multidisciplinary plan of care. High complexity visit--60 min face to face, 30 min to review outside records andcoordinate tumor board discussion of plan. 03/14/2022: Here for followup after right breast lumpectomy/sentinel lymph node on 02/18/2022. She had evacuation of post op hematoma on 03/07/2022. We reviewedpathology showing Invasive Lobular Carcinoma, [place] histologic score 8/9 (score 3), size 50mm, margins negative for carcinoma, ER 95%, KY 95%, Her2 1+ byIHC, negative. 2 sentinel lymph nodes negative for involvement by tumor. pT2 pN0 Mx. ----Today we discussed Oncotype Dx testing due to high grade ER+, KY+, Her2 negative cancer. She understands that if low risk, we would recommend referrralfor radiation therapy followed by hormonal therapy. If high risk recurrence score, we will discuss the benefit of adjuvant chemotherapy prior to radiation and hormonal therapy. She will return in 2 weeks to review Oncotype Dx results. 04/02/2022: Oncotype DX results reviewed. Recurrence score is 18 consistent witha 9-year recurrence rate of 5% if the patient is on appropriate hormonal therapyfollowing radiation. No benefit to chemotherapy. We discussed referral to radiation oncology and subsequent options for hormonal therapy. Since the patient still has uterus in place, aromatase inhibitor is favored over tamoxifen. We discussed side effects of aromatase inhibitors and patient will proceed with anastrozole 1 mg daily for 1 month trial following her radiation therapy. She will follow-up with me in about 8 to 10 weeks after completion of radiation therapy and 4 weeks of anastrozole for review of tolerance. Goal 5 to7 years of adjuvant aromatase inhibitor therapy. Moderate complexity followup 30 minutes to discuss Oncotype Dx results. 06/11/2022: Here for followup after radiation completed in late April 2022, then started anastrozole 1mg daily. Denies hot flashes, myalgias or arthralgiason anastrozole. We reviewed baseline DEXA scan with bilateral femoral neck osteopenia, normal lumbar spine T-score. We discussed continuing anastrozole for a total of 5-7 year course and adding calcium and vitamin D 2 tabs daily. Followup DEXA in 2 years (03/2024). Next f/u with [facility] as well as Dr. Magana for surveillance. 09/11/2022: Denia is here for interval 3-month follow-up on adjuvant endocrine therapy with anastrozole for early stage, hormone positive breast cancer. She denies any significant hot flashes or fatigue. She does not some increased arthralgias in the shoulders, elbows, wrists and knees since starting anastrazole. She takes Ibuprofen as needed and reports this to be tolerable for the time being. She is due for next mammogram in December 2022. Saw Dr. Magana 1 month ago on 08/04/2022 with normal exam. She reports no other changes or concerns. No changes on self breast exam or new areas of pain. - will follow up in ~ 4 months after next bilateral diagnostic mammogram. - she will see Dr. Magana again in about 8 weeks in October 2022. 01/01/2023: Denia is here for 4-month follow-up on endocrine therapy anastrozolefor early-stage hormone positive breast cancer. No new symptoms on anastrozole therapy and myalgias are well controlled. Mammogram was reviewed with no evidence of recurrence and she has no findings of recurrence on exam. We will extend her follow-up to 6 months since she is also following with Dr. Magana of general surgery every 3 to 4 months. 02/19/2023: Denia is here for add on visit; just seen about 6-7 weeks ago with no evidence of recurrence - negative mammogram. She was added on today due to concerns and untoward side effects related to her adjuvant endocrine therapy with anastrazole. Of note, she was started on anastrazole in April 2022. She was in her usual state of health until January 21, 2023 when she experienced severe, stabbing right lower quadrant abdominal pain that prompted urgent evaluation in the emergency department. Upon further work-up, she was found to have a very large right adnexal mass measuring ~ 13 cm. She was urgently transferred to [facility] and underwent total hysterectomy, bilateral salpingo-oophorectomy and lysis of adhesions on January 21, 2023. 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 Upon discharge from the hospital she has noted more significant hot flashes, fatigue and arthralgias associated with her AI therapy. Initially, she seems to have done well with anastrazole but has just not been the same since having her surgery 1 month ago. Otherwise, no changes onself breast exam, new bony pain, weight loss, abdominal pain, nausea/vomiting orheadaches. Keep same follow up as previously scheduled for June 2023. Will hold anastrazole x 2 weeks given her recent surgery and see if her side effects improve. Will restart thereafter, not yet ready to switch to Letrozole. If return of symptoms or increased in severity; she will notify us sooner and we may trial change in therapy from anastrazole to letrozole. 03/12/2023: No significant changes, no breast changes since last office visit 3 weeks ago. Saw surgery, Dr. Magana on 02/04/2023. Had negative mammogram on December 29, 2022. 04/16/2023: Denia is here for interval 1 month follow up visit. Has had negative NM bone scan - ordered because of diffuse arthralgias/myalgias. She hasnow been off all endocrine therapy x 6 weeks; with essentially no improvement inher joint symptoms. She is agreeable to go back on anastrazole. In regards to breast cancer; no changes on self exam; had negative mammogram and exam in December 2022. Will see Dr. Magana again on June 15, 2023. She had follow up CT scan of the abdomen/pelvis done at [facility] yesterday. This was done to evaluate her post operatively after large, non malignant adnexal mass was removed on 01/21/2023 at [facility]. She was told her CT scan showed something with kidney and she was advised to follow up with her PCP - Dr. Schmuacher. Will request report. Denies weight loss, lymphadenopathy, chest pain, SOB, cough, breast changes. As previously noted, we check RF and CCP antibody - which was negative; however, her [place] levels returned abnormal with a relatively high titerlevel. She was referred to rheumatology on 03/13/2023; but patient noted change in insurance and has not yet seen rheumatology. We will arrange for this to be done again, today. o case discussed with Dr. Hennessy. No further interventions, as patient will plan on going back on AI therapy with anastrozole. o referral to rheum for positive [place] with relatively high titer (1:320), diffusepolyarthralgias, morning stiffness >1 hour. o next breast cancer follow up in 4 months. Next mammogram due: December 2023. o continue every 4 month follow up with Dr. Magana - next appt is 06/15/2023 (2) Aromatase inhibitor-associated arthralgia 04/16/2023: No changes in joint aches/pains despite holding AI therapy x 6 weeks.Patient is agreeable to go back on therapy, actually she prefers to, stating that she knows know that the pill isn't what is making her feel bad. Negative NMbone scan - positive C[place]. 03/12/2023: Noted about 30% improvement in arthralgias/myalgias with 2 week HOLD of anastrazole. She resumed taking again 1 week ago, on 03/05/2023 and now notes significant discomfort in her lower back, feet, hands (notable synovitis), bilateral shoulders and hip girdle. She is even having to take low dose opioid pain medication in combination with Ibuprofen because of her joint aches/pains. Will HOLD anastrazole for a full 4 weeks and will re-evaluate in clinic in 1 month. In the interim, I will order NM bone scan to rule out any underlying bonypathology and also order ESR/CRP, [place], Rheumatoid factor, and CCP antibody to assess for any underlying rheumatological process/PMR/inflammation. If work up and bone scan are negative and her symptoms improve off anastrazole; we will need to discuss switching to letrozole vs tamoxifen. 02/19/2023: Increased after surgery for large right adnexal mass; status post total hysterectomy and bilateral salpingo-oophorectomy on 01/21/2023 at the [facility]. 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 Plan: Hold anastrazole x 2 weeks; restart thereafter. Notify clinic sooner than next scheduled appointment if she is having increased issues, side effects. (3) Osteopenia Qualifiers: Osteopenia location: femoral neck Laterality: bilateral Qualified Code(s): M85.851 - Other specified disorders of bone density and structure, right thigh; M85.852 - Other specified disorders of bone density and structure, left thigh Baseline DEXA scan prior to aromatase inhibitor therapy consistent with osteopenia bilateral femoral necks. We will treat with calcium and vitamin D supplementation 2 tabs daily. Next DEXA due: March 2024. (4) Adnexal mass Diagnosed with large right adnexal mass (~ 13 cm) ; status post total hysterectomy and bilateral salpingo-oophorectomy on 01/21/2023 at the [facility]. Pathology returned consistent with benign, mucinous cystoadenoma withno evidence of malignancy. (5) Encounter for monitoring aromatase inhibitor therapy Initially had Overall good tolerance; grade 1 arthralgias; no changes in therapyfor time being. 02/19/2023: Add on visit due to worsening arthralgias, myalgias and hot flashes since hysterectomy and bilateral salpingo-oophorectomy 1 month ago on 01/21/2023. Given recent surgery, advised patient to hold anastrozole x2 weeks to see if her symptoms resolve. We briefly discussed changing therapy to letrozole, although this has much of the same side effect profile as anastrozole; however, some patients report better tolerance with change in therapy. -She does not wish to change from anastrozole quite yet; upon her holding anastrozole x2 weeks-patient will restart and notify the clinic if she feels that sheis no longer able to tolerate. If she does okay, she was advised to continue anastrazole and we will follow up with here again in ~ 4 months (as previously scheduled). 03/12/2023: HOLD x 4 weeks- grade 2/3 arthralgias (see plan above) 04/16/2023: RESUME anastrozole - follow up with rheumatology. Plan to continue therapy for at least 5 years through April 2027. - Chemo Plan Chemo Plan (Dose, Rate, Freq): Anastrozole 1mg daily for 5-7 year course- started April 2022. Goal of Treatment: Curative - Time with Patient Time Spent with Patient (Follow Up Visit): 35 minutes Coordination of Care & Counseling Time: Greater than 50% of time spent with patient was for coordination of care (as documented) and [id number] counseling of patient and/or family. Dictated By: Ciera Vitale APRN DD/ [id number] Signed By: <Electronically signed by ALEX Vitale> 04/16/23 1255 [facility] Work Phone: 1(383) 615-450608-21-2023 Progress note Author Ciera Vitale [facility] March 16, 2023 3:20pm Note Date/Time March 12, 2023 1: 58pm [facility] [place] [address] Hem/Onc Follow Up Note - OP Signed with [place] Patient: Denia Al MR#: [id number] : 1960 Acct:[id number] Age/Sex: 62 / F Type: REG RCR Copies to: MD Howard Kay MD~ ADDENDUM1 Called patient today (03/16/2023) at 13:16. She is still complaining of all over joint aches and pains; especially small joints (feet/hands) and shoulders. As noted below, bone scan pending. She will continue to hold Anastrazole. Preliminary work up with [place], ESR/CRP and RF/CCP are reviewed. She has normal ESR/CRP; RF and CCP antibody; however, does have a fairly elevated [place] 1:320 andsystemic complaints of polyarthralgia/myalgias and synovitis. [place] - and she was informed of this referral today. Addendum Dictated By: ALEX Vitale Addendum Signed By: 03/16/231519 Addendum Cosigned By: DD/ TD/TT: 03/16/23 Subjective Date/Time of Service: Date of Service: 03/12/2023 Time of Service: 13:51 Chief Complaint: Patient is here for an add on visit/3 week follow up, taking anastrozole. Patient reports that the joint pain she was having at her last visit has gotten worse instead of better. HPI: 03/12/2023: Denia is seen again today for add on visit. She was seen about 3 weeks ago with myalgias/arthralgias; felt to be related to anastrazole. We had adiscussion about changing medication vs stopping medication for 2 weeks and restarting. At that time, she elected to hold anastrazole x 2 weeks and restart. She does feel like she had some improvement - maybe 30% improved off anastrazole. She restarted anastrazole 1 week ago and is seen today again due torecurrence of profound myalgias/arthralgias; particularly involving her bilateral shoulders, bilateral hips, low back, feet and bilateral hands. She hasnotable synovitis involving her MCP joints bilaterally and is significantly tender to touch in the shoulders and proximal upper extremities. No history of rheumatological or autoimmune conditions. No changes on self breast exam, deniesweight loss, abdominal pain, lymphadenopathy. 02/19/2023: Denia is here for add on visit; just seen about 6-7 weeks ago with no evidence of recurrence - negative mammogram. She was added on today due to concerns and untoward side effects related to her adjuvant endocrine therapy with anastrazole. Of note, she was started on anastrazole in April 2022. She was in her usual state of health until January 21, 2023 when she experienced severe, stabbing right lower quadrant abdominal pain that prompted urgent evaluation in the emergency department. Upon further work-up, she was found to have a very large right adnexal mass measuring ~ 13 cm. She was urgently transferred to [facility] and underwent total hysterectomy, bilateral salpingo-oophorectomy and lysis of adhesions on January 21, 2023. 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 Upon discharge from the hospital she has noted more significant hot flashes, fatigue and arthralgias associated with her AI therapy. Initially, she seems to have done well with anastrazole but has just not been the same since having her surgery 1 month ago. Otherwise, no changes onself breast exam, new bony pain, weight loss, abdominal pain, nausea/vomiting orheadaches. Last follow up with surgery was 10 days ago, saw Dr. Magana on 02/04/2023. 12/31/2022: Denia is here for 4-month follow-up on endocrine therapy for early- stage hormone positive breast cancer. She is tolerating anastrozole reasonably well without significant hot flashes or fatigue. She does have some occasional joint aches which are stable with use of ibuprofen. No changes on self breast exam and 1 year mammogram did not show any evidence of recurrence. She has regular follow-up with Dr. Magana of general surgery, next evaluation in January. Okay to extend her follow-up from medical oncology to every 6 months or sooner if she has new clinical concerns. 09/11/2022: Denia is here for interval 3-month follow-up on adjuvant endocrine therapy with anastrozole for early stage, hormone positive breast cancer. She denies any significant hot flashes or fatigue. She does not some increased arthralgias in the shoulders, elbows, wrists and knees since starting anastrazole. She takes Ibuprofen as needed and reports this to be tolerable for the time being. She is due for next mammogram in December 2022. Saw Dr. Magana 1 month ago on 08/04/2022 with normal exam. She reports no other changes or concerns. No changes on self breast exam or new areas of pain. 06/11/2022: Denia completed radiation therapy 3 weeks ago with start of anastrozole therapy. She denies any significant hot flashes, arthralgias or myalgias. She has intermittent tenderness in radiation field but no breast or arm lymphedema. Baseline DEXA from 04/10/2022 showed normal bone density (T score -0.6) lumbar spine, osteopenia (T score -1.4 left femoral neck, T score -1.5right femoral neck) bilateral hips. We are adding calcium with vitamin D and patient may check Vit D level with primary care. Continue anastrozole 1mg daily. OK for 3 month f/u with [facility] and 6 month f/u with me, sooner if new issuesarise. 04/02/2022: Denia is here to review results of Oncotype DX from her original lumpectomy specimen. She has not had any further issues with her seroma. I discussed in detail her recurrence score of 18 which corresponds to a 5% recurrence risk at 9 years and no benefit to chemotherapy with age greater than 50. We discussed typical approach after lumpectomy is to proceed to radiation therapy and she will have consult today. We discussed options for hormonal therapy including tamoxifen versus aromatase inhibitors. She still has intact uterus and there is increased risk of endometrial cancer and thrombosis with tamoxifen and therefore aromatase inhibitor is recommended. We discussed side effects of aromatase inhibitor such as hot flashes, lower bone density, and about 20% incidence of myalgias and arthralgias. She will have baseline DEXA scan and will commence anastrozole 1 mg daily following her radiation therapy. I will see her at the end of 4 weeks of anastrozole to review side effects and to determine if she may continue 5 to 7 years of adjuvant hormonal therapy. Allquestions answered to the patient and her over this 35- minute visit to review Oncotype findings, counseling for radiation and AI therapy. 03/14/2022: Denia completed right upper outer quadrant lumpectomy by Dr. Magana on and is here to review pathology results and recommendations for adjuvant therapy. She had to return to OR for evacuation ofa large hematoma in biopsy cavity on 03/05/2022 and continues followup with Dr. Magana. I reviewed pathology results showing Invasive Lobular Carcinoma, [place] histologic score 8/9 (score 3), size 50mm, margins negative for carcinoma, ER 95%, KY 95%, Her2 1+ by IHC, negative. 2 sentinel lymph nodes negative for involvement by tumor. pT2 pN0 Mx. Interestingly, original pathology was invasive ductal carcinoma (lumpectomy final pathology invasive lobular carcinoma). --No residual fullness or pain at surgical site. Discussed Oncotype Dx--will send pathology for testing and followup in 2 weeks. Moderate complexity 35 minute followup visit. 02/07/2022: Phone followup today to discuss [facility] tumor board discussion forplan with Dr. Magana for invasive ductal carcinoma of right breast. I contacted patient today after discussion in [facility] Tumor Board this am. Right axillary ultrasound was negative for adenopathy. Since HER2 is indeterminate and node negative, we recommended upfront lumpectomy. She will schedule with Dr. Magana and I will meet with her 2 weeks post operatively todiscuss pathology results and adjuvant therapy options. ---- Reason for Consultation: Palpable right breast mass--biopsy in December 2021 shows invasive ductal carcinoma (provisional grade 2) ER 95%, KY 95%, Her-2 equivocal IHC 1+ with equivocal FISH(HER2/CEP 17 1.4; Her2 copy number 4.0). Discussion of options for possible neoadjuvant therapy vs. upfront surgery. ORIGINAL CONSULT: 01/29/2022: This is a 62 year old female with minimal comorbidities who noted a fullness of right upper outer quadrant of breast--nontender, no skin erythema or dimpling, no nipple deviation or discharge, no obvious axillary fullness. She is , age 29 with first . Postmenopausal--no prior hysterectomy or oophorectomy, no history of hormone replacement therapy. + family history of a maternal aunt with breast cancer ( in 90s of natural causes). No family history of ovarian or other cancers. I reviewed her [facility] mammography 12/25/21 and ultrasound 01/01/2022 reports. Breast mass is about 3.6cm in greatest dimension on US (3.8 cm on mammogram). US guided breast biopsy on 01/01/2022 revealed invasive ductal carcinoma (provisional grade 2) ER 95%, KY 95%, Her-2 equivocal IHC 1+ with equivocal FISH (HER2/CEP 17 1.4; Her2 copy number 4.0). I discussed the case initially with Dr. Magana prior to referral and I discussed results above with the patient and her . Due to equivocal results of initial HER2 studies on breast biopsy, I recommended right axillary US with biopsy. If no enlarged axillary LN or axilla biopsy negative for cancer, she may proceed with upfront surgery. If biopsy is + for cancer, especially if Her2 positive, she should return to consent for neoadjuvant chemotherapy with TCHP. Following her US and biopsy within the next week, I will discuss her case at [facility] tumor board 02/03/2022 then coordinate phone followup to discuss multidisciplinary planof care. DIAGNOSIS: New diagnosis right upper inner quadrant breast cancer 3.6cm primary by US (clinical T2 Nx Mx) --01/01/2022 biopsy: invasive ductal carcinoma (provisional grade 2) ER 95%, KY 95%, Her-2 equivocal IHC 1+ with equivocal FISH (HER2/CEP 17 1.4; Her2 copy number 4.0). --02/18/2022 lumpectomy with sentinel lymph node biopsy: Invasive Lobular Carcinoma, [place] histologic score 8/9 (score 3), size 50mm, margins negative for carcinoma, ER 95%, KY 95%, Her2 1+ by IHC, negative. 2 sentinel lymph nodes negative for involvement by tumor. pT2 pN0 Mx. - Summary of Therapies Summary of Therapies: 02/18/2022 Right breast lumpectomy with sentinel lymph node biopsy. 04/01/2022: Oncotype results 18 therefore no indication for adjuvant chemotherapy. 04/24-05/20/2022: Completed Adjuvant radiation 4,005 cGy left breast (15 fractions over 20 days) and 1,000 cGy boost to cavity (4 fractions over 5 days) 05/21/2022: Anastrozole 1 mg daily to complete 5-year course. * 02/19/2023: HELD anastrazole x 2 weeks due to grade 2 myalgias/arthralgias * Resumed 03/02/2023- 03/12/2023 * 03/12/2023: HOLD again (advise 4 weeks) - if improvement - will need to addresschanging to Letrozole vs Tamoxifen ROS Details: All systems reviewed & no additional complaints except as documented Subjective/ROS - Narrative: CONSTITUTIONAL: Negative for fatigue, negative for fever or night sweats. HEAD AND NECK: Negative for changes in hearing and vision. Negative for mouth ulcers, nasal congestion and nasal drainage. PULMONARY: Negative for chest pain, cough and dyspnea. CARDIOVASCULAR: Negative for claudication and irregular heartbeat/palpitations. GASTROINTESTINAL: Negative for abdominal pain, constipation, decreased appetite,diarrhea and vomiting. GENITOURINARY: Negative for dysuria and hematuria. ENDOCRINE: Negative for cold intolerance and heat intolerance--no hot flashes onanastrozole therapy. Right upper inner quadrant palpable mass since 10/2021, nowwell-healed since lumpectomy 02/18 then evacuation of hematoma 03/07/2022. CENTRAL NERVOUS SYSTEM: Negative for gait disturbance and headache. PSYCHIATRIC: Negative for anxiety or depression. DERMATOLOGICAL: Negative for pruritus and rash. Negative for suspicious skin lesions. No skin discoloration or dimpling over left breast. MUSCULOSKELETAL: Significant arthralgias/myalgias on anastrazole; tolerable for the time being; Negative for back pain or joint symptoms. HEMATOLOGICAL: Negative for bleeding and easy bruising. Negative for history of transfusion or thromboembolic disease ALLERGY: Negative for environmental allergies and food allergies. [facility] - Medical History Medical History: Medical History (Last Reviewed 01/01/23 @ 08:39 by Lisa Hennessy MD) Breast cancer current rt Smoker - Surgical History Surgical History: Surgical History (Last Updated 02/19/23 @ 14:39 by Lamar Barba) H/O lumpectomy 01/2022 H/O splenectomy H/O tubal ligation History of lumpectomy of right breast -benign History of right salpingo-oophorectomy 01/21/2023 Hx of appendectomy Hx of tonsillectomy Status post laparoscopy with lysis of adhesions 01/21/2023 Status post total abdominal hysterectomy 01/21/2023 - Family History Family History: Family History (Last Reviewed 01/01/23 @ 08:39 by Lisa Hennessy MD) Father Liver cancer Diabetes Mother Hypertension Diabetes Heart disease Sister Diabetes - Social History Smoking Status: Former smoker Tobacco Type: cigarettes Substance Use Type: Alcohol Home Medications & Allergies Allergies penicillin G Adverse Reaction (Verified 12/31/22 13:20) convulsions Home Medications anastrozole 1 mg tablet 1 mg PO DAILY 90 days #90 tabs 06/11/22 [Rx Confirmed 03/12/23] calcium 500 mg tablet 1,000 mg PO DAILY 09/11/22 [History Confirmed 03/12/23] cholecalciferol (vitamin D3) 25 mcg (1,000 unit) tablet (Vitamin D3) 25 mcg PO DAILY 09/11/22 [History Confirmed 03/12/23] ibuprofen 800 mg tablet 800 mg PO TID 03/12/23 [History Confirmed 03/12/23] oxycodone 5 mg tablet 5 mg PO Q6H PRN Pain 03/12/23 [History Confirmed 03/12/23] Objective - Resuscitation Status Resuscitation Status: Full Code - Height/Weight Height/Weight: Height 5 ft 5 in Weight 75.614 kg - Vital Signs Vital Signs: 03/12/23 13:02 Temperature 98.8 F Pulse Rate [Left Brachial] 55 L Respiratory Rate 18 Blood Pressure [Left Arm] 174/86 H 02 Sat by Pulse Oximetry 99 Oxygen Delivery Method Room Air - Pain Generalized Pain Intensity: 7 Physical Exam Narrative: CONSTITUTIONAL: The patient is in no acute distress. HEAD / FACE: Normocephalic. EYES: Pupils are equal and reactive to light. Conjunctivae and lids are benign in appearance. Ocular movement intact. EARS: Hearing grossly intact. Limited BREAST EXAM: Right breast well healed incision without mass right upperinner quadrant. No skin erythema or dimpling. No nipple discharge or deviation NOSE / MOUTH / THROAT: Nose, mouth, tongue and oropharynx are benign in appearance. No signs of inflammation. NECK / THYROID: Neck is supple. Thyroid is symmetrical, without thyromegaly, masses or palpable nodules. LYMPHATIC: No palpable cervical, supraclavicular, infraclavicular, or inguinal adenopathy. No left axillary adenopathy. Resolved fullness right axilla. RESPIRATORY: Normal to inspection. Lungs clear to auscultation and percussion. No wheezing, rales, rhonchi or rubs. Normal effort. CARDIOVASCULAR: Regular rate and rhythm. No murmurs, gallops, or rubs. VASCULAR: Carotid, radial, femoral and pedal pulses present bilaterally. No bruits. ABDOMEN: Bowel sounds normoactive. Soft, nontender and non-distended. No hepatosplenomegaly. No masses. GENITOURINARY: No CVA tenderness. No suprapubic fullness or tenderness. No groinadenopathy. INTEGUMENTARY: The skin is unremarkable. No rashes. No suspicious lesions BACK / SPINE: The back is nontender. MUSCULOSKELETAL: Normal musculature, bilateral shoulder tenderness; diffuse tenderness in bilateral proximal upper extremities; synovitis involving bilateral 1st-3rd MCP's. EXTREMITIES: No edema, cyanosis or clubbing. No Merle sign. NEUROLOGICAL: Alert and oriented. Cranial nerves intact. No gross motor or sensory deficits. PSYCHIATRIC: No anxiety or evidence of depression. - ECOG Performance Status ECOG Score: 1 Assessment and Plan - TNM Staging Staging: Right upper inner quadrant breast cancer 3.6cm primary by US (clinical T2 Nx Mx) --02/18/2022: Right lumpectomy/sentinel lymph node biopsy now Invasive Lobular Carcinoma, [place] histologic score 8/9 (score 3), size 50mm, margins negative for carcinoma, ER 95%, KY 95%, Her2 1+ by IHC, negative. 2 sentinel lymph nodes negative for involvement by tumor. pT2 pN0 Mx. (1) Malignant neoplasm of upper-inner quadrant of right breast in female, estrogen receptor positive This is a now 62 year old female with minimal comorbidities who noted a fullnessof right upper outer quadrant of breast in October 2021. Subsequent mammogram, US, and biopsy confirmed a 3.6cm invasive ductal carcinoma (provisional grade 2)ER 95%, KY 95%, Her-2 equivocal IHC 1+ with equivocal FISH (HER2/CEP 17 1.4; Her2 copy number 4.0). I discussed the case initially with Dr. Magana prior to referral and I discussed results above with the patient and her . Due to equivocal results of initial HER2 studies on breast biopsy, I recommended right axillary US with biopsy. If no enlarged axillary LN or axilla biopsy negative for cancer, she may proceed with upfront surgery. If biopsy is + for cancer, especially if Her2 positive, she should return to consent for neoadjuvant chemotherapy with TCHP. Following her US and biopsy within the next week, I will discuss her case at [facility] tumor board 02/03/2022 then coordinate phone followup to discuss multidisciplinary plan of care. High complexity visit--60 min face to face, 30 min to review outside records andcoordinate tumor board discussion of plan. 03/14/2022: Here for followup after right breast lumpectomy/sentinel lymph node on 02/18/2022. She had evacuation of post op hematoma on 03/07/2022. We reviewedpathology showing Invasive Lobular Carcinoma, [place] histologic score 8/9 (score 3), size 50mm, margins negative for carcinoma, ER 95%, [place] 95%, [facility]. 2 sentinel lymph nodes negative for involvement by tumor. pT2 pN0 Mx. ----Today we discussed Oncotype Dx testing due to high grade ER+, KY+, Her2 negative cancer. She understands that if low risk, we would recommend referrralfor radiation therapy followed by hormonal therapy. If high risk recurrence score, we will discuss the benefit of adjuvant chemotherapy prior to radiation and hormonal therapy. She will return in 2 weeks to review Oncotype Dx results. 04/02/2022: Oncotype DX results reviewed. Recurrence score is 18 consistent witha 9-year recurrence rate of 5% if the patient is on appropriate hormonal therapyfollowing radiation. No benefit to chemotherapy. We discussed referral to radiation oncology and subsequent options for hormonal therapy. Since the patient still has uterus in place, aromatase inhibitor is favored over tamoxifen. We discussed side effects of aromatase inhibitors and patient will proceed with anastrozole 1 mg daily for 1 month trial following her radiation therapy. She will follow-up with me in about 8 to 10 weeks after completion of radiation therapy and 4 weeks of anastrozole for review of tolerance. Goal 5 to7 years of adjuvant aromatase inhibitor therapy. Moderate complexity followup 30 minutes to discuss Oncotype Dx results. 06/11/2022: Here for followup after radiation completed in late April 2022, then started anastrozole 1mg daily. Denies hot flashes, myalgias or arthralgiason anastrozole. We reviewed baseline DEXA scan with bilateral femoral neck osteopenia, normal lumbar spine T-score. We discussed continuing anastrozole for a total of 5-7 year course and adding calcium and vitamin D 2 tabs daily. Followup DEXA in 2 years (03/2024). Next f/u with [facility] as well as Dr. Magana for surveillance. 09/11/2022: Denia is here for interval 3-month follow-up on adjuvant endocrine therapy with anastrozole for early stage, hormone positive breast cancer. She denies any significant hot flashes or fatigue. She does not some increased arthralgias in the shoulders, elbows, wrists and knees since starting anastrazole. She takes Ibuprofen as needed and reports this to be tolerable for the time being. She is due for next mammogram in December 2022. Saw Dr. Magana 1 month ago on 08/04/2022 with normal exam. She reports no other changes or concerns. No changes on self breast exam or new areas of pain. - will follow up in ~ 4 months after next bilateral diagnostic mammogram. - she will see Dr. Magana again in about 8 weeks in October 2022. 01/01/2023: Denia is here for 4-month follow-up on endocrine therapy anastrozolefor early-stage hormone positive breast cancer. No new symptoms on anastrozole therapy and myalgias are well controlled. Mammogram was reviewed with no evidence of recurrence and she has no findings of recurrence on exam. We will extend her follow-up to 6 months since she is also following with Dr. Magana of general surgery every 3 to 4 months. 02/19/2023: Denia is here for add on visit; just seen about 6-7 weeks ago with no evidence of recurrence - negative mammogram. She was added on today due to concerns and untoward side effects related to her adjuvant endocrine therapy with anastrazole. Of note, she was started on anastrazole in April 2022. She was in her usual state of health until January 21, 2023 when she experienced severe,stabbing right lower quadrant abdominal pain that prompted urgent evaluation in the emergency department. Upon further work-up, she was found to have a very large right adnexal mass measuring ~ 13 cm. She was urgently transferred to [facility] and underwent total hysterectomy, bilateral salpingo-oophorectomy and lysis of adhesions on January 21, 2023. 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 Upon discharge from the hospital she has noted more significant hot flashes, fatigue and arthralgias associated with her AI therapy. Initially, she seems to have done well with anastrazole but has just not been the same since having her surgery 1 month ago. Otherwise, no changes on self breast exam,new bony pain, weight loss, abdominal pain, nausea/vomiting or headaches. Keep same follow up as previously scheduled for June 2023. Will hold anastrazole x 2 weeks given her recent surgery and see if her side effects improve. Will restart thereafter, not yet ready to switch to Letrozole. If return of symptoms or increased in severity; she will notify us sooner and we may trial change in therapy from anastrazole to letrozole. 03/12/2023: No significant changes, no breast changes since last office visit 3 weeks ago. Saw surgery, Dr. Magana on 02/04/2023. Had negative mammogram on December 29, 2022. (2) Aromatase inhibitor-associated arthralgia 03/12/2023: Noted about 30% improvement in arthralgias/myalgias with 2 week HOLD of anastrazole. She resumed taking again 1 week ago, on 03/05/2023 and now notes significant discomfort in her lower back, feet, hands (notable synovitis), bilateral shoulders and hip girdle. She is even having to take low dose opioid pain medication in combination with Ibuprofen because of her joint aches/pains. Will HOLD anastrazole for a full 4 weeks and will re-evaluate in clinic in 1 month. In the interim, I will order NM bone scan to rule out any underlying bonypathology and also order ESR/CRP, [place], Rheumatoid factor, and CCP antibody to assess for any underlying rheumatological process/PMR/inflammation. If work up and bone scan are negative and her symptoms improve off anastrazole; we will need to discuss switching to letrozole vs tamoxifen. 02/19/2023: Increased after surgery for large right adnexal mass; status post total hysterectomy and bilateral salpingo-oophorectomy on 01/21/2023 at the [facility]. 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 Plan: Hold anastrazole x 2 weeks; restart thereafter. Notify clinic sooner than next scheduled appointment if she is having increased issues, side effects. (3) Osteopenia Qualifiers: Osteopenia location: femoral neck Laterality: bilateral Qualified Code(s): M85.851 - Other specified disorders of bone density and structure, right thigh; M85.852 - Other specified disorders of bone density and structure, left thigh Baseline DEXA scan prior to aromatase inhibitor therapy consistent with osteopenia bilateral femoral necks. We will treat with calcium and vitamin D supplementation 2 tabs daily. Next DEXA due: March 2024. (4) Adnexal mass Diagnosed with large right adnexal mass (~ 13 cm) ; status post total hysterectomy and bilateral salpingo-oophorectomy on 01/21/2023 at the [facility]. Pathology returned consistent with benign, mucinous cystoadenoma withno evidence of malignancy. (5) Encounter for monitoring aromatase inhibitor therapy Initially had Overall good tolerance; grade 1 arthralgias; no changes in therapyfor time being. 02/19/2023: Add on visit due to worsening arthralgias, myalgias and hot flashes since hysterectomy and bilateral salpingo-oophorectomy 1 month ago on 01/21/2023. Given recent surgery, advised patient to hold anastrozole x2 weeks to see if her symptoms resolve. We briefly discussed changing therapy to letrozole, although this has much of the same side effect profile as anastrozole; however, some patients report better tolerance with change in therapy. -She does not wish to change from anastrozole quite yet; upon her holding anastrozole x2 weeks-patient will restart and notify the clinic if she feels that she is no longer able to tolerate. If she does okay, she was advised to continue anastrazole and we will follow up with here again in ~ 4 months (as previously scheduled). 03/12/2023: HOLD x 4 weeks- grade 2/3 arthralgias (see plan above) - Chemo Plan Chemo Plan (Dose, Rate, Freq): Anastrozole 1mg daily for 5-7 year course- started April 2022. Goal of Treatment: Curative - Time with Patient Time Spent with Patient (Follow Up Visit): 35 minutes Coordination of Care & Counseling Time: Greater than 50% of time spent with patient was for coordination of care (as documented) and [id number] counseling of patient and/or family. Dictated By: Ciera Vitale APRN DD/ [id number] Signed By: <Electronically signed by ALEX Vitale> 03/12/23 1409 [facility] Work Phone: [phone]) 261-467407-27-2023 Progress note Author Ciera Vitale [facility] February 19, 2023 4:56pm Note Date/Time February 19, 2023 2:51 pm [facility] [place] [id number] Hem/Onc Follow Up Note - OP Signed Patient: Denia Al MR#: [id number] : 1960 Acct:[id number] Age/Sex: 62 / F Type: REG RCR Copies to: MD Howard Kay MD~ Subjective Date/Time of Service: Date of Service: 02/19/2023 Time of Service: 14:49 Chief Complaint: Patient is here for an add on visit/6 week follow up. Patient states that she had a hysterectomy and after that she started having joint pain and nausea after that, she was taking Anastrozole up until Thursday when she called our clinic and was instructed to stop taking it. She also reports hot flashes. HPI: 02/19/2023: Denia is here for add on visit; just seen about 6-7 weeks ago with no evidence of recurrence - negative mammogram. She was added on today due to concerns and untoward side effects related to her adjuvant endocrine therapy with anastrazole. Of note, she was started on anastrazole in April 2022. She was in her usual state of health until January 21, 2023 when she experienced severe, stabbing right lower quadrant abdominal pain that prompted urgent evaluation in the emergency department. Upon further work-up, she was found to have a very large right adnexal mass measuring ~ 13 cm. She was urgently transferred to [facility] and underwent total hysterectomy, bilateral salpingo-oophorectomy and lysis of adhesions on January 21, 2023. 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 Upon discharge from the hospital she has noted more significant hot flashes, fatigue and arthralgias associated with her AI therapy. Initially, she seems to have done well with anastrazole but has just not been the same since having her surgery 1 month ago. Otherwise, no changes onself breast exam, new bony pain, weight loss, abdominal pain, nausea/vomiting orheadaches. 12/31/2022: Denia is here for 4-month follow-up on endocrine therapy for early- stage hormone positive breast cancer. She is tolerating anastrozole reasonably well without significant hot flashes or fatigue. She does have some occasional joint aches which are stable with use of ibuprofen. No changes on self breast exam and 1 year mammogram did not show any evidence of recurrence. She has regular follow-up with Dr. Magana of general surgery, next evaluation in January. Okay to extend her follow-up from medical oncology to every 6 months or sooner if she has new clinical concerns. 09/11/2022: Denia is here for interval 3-month follow-up on adjuvant endocrine therapy with anastrozole for early stage, hormone positive breast cancer. She denies any significant hot flashes or fatigue. She does not some increased arthralgias in the shoulders, elbows, wrists and knees since starting anastrazole. She takes Ibuprofen as needed and reports this to be tolerable for the time being. She is due for next mammogram in December 2022. Saw Dr. Magana 1 month ago on 08/04/2022 with normal exam. She reports no other changes or concerns. No changes on self breast exam or new areas of pain. 06/11/2022: Denia completed radiation therapy 3 weeks ago with start of anastrozole therapy. She denies any significant hot flashes, arthralgias or myalgias. She has intermittent tenderness in radiation field but no breast or arm lymphedema. Baseline DEXA from 04/10/2022 showed normal bone density (T score -0.6) lumbar spine, osteopenia (T score -1.4 left femoral neck, T score -1.5 right femoral neck) bilateral hips. We are adding calcium with vitamin D and patient may check Vit D level with primary care. Continue anastrozole 1mg daily. OK for 3 month f/u with [facility] and 6 month f/u with me, sooner if new issuesarise. 04/02/2022: Denia is here to review results of Oncotype DX from her original lumpectomy specimen. She has not had any further issues with her seroma. I discussed in detail her recurrence score of 18 which corresponds to a 5% recurrence risk at 9 years and no benefit to chemotherapy with age greater than 50. We discussed typical approach after lumpectomy is to proceed to radiation therapy and she will have consult today. We discussed options for hormonal therapy including tamoxifen versus aromatase inhibitors. She still has intact uterus and there is increased risk of endometrial cancer and thrombosis with tamoxifen and therefore aromatase inhibitor is recommended. We discussed side effects of aromatase inhibitor such as hot flashes, lower bone density, and about 20% incidence of myalgias and arthralgias. She will have baseline DEXA scan and will commence anastrozole 1 mg daily following her radiation therapy. I will see her at the end of 4 weeks of anastrozole to review side effects and to determine if she may continue 5 to 7 years of adjuvant hormonal therapy. Allquestions answered to the patient and her over this 35- minute visit to review Oncotype findings, counseling for radiation and AI therapy. 03/14/2022: Denia completed right upper outer quadrant lumpectomy by Dr. Magana on and is here to review pathology results and recommendations for adjuvant therapy. She had to return to OR for evacuation ofa large hematoma in biopsy cavity on 03/05/2022 and continues followup with Dr. Magana. I reviewed pathology results showing Invasive Lobular Carcinoma, [place] histologic score 8/9 (score 3), size 50mm, margins negative for carcinoma, ER 95%, KY 95%, Her2 1+ by IHC, negative. 2 sentinel lymph nodes negative for involvement by tumor. pT2 pN0 Mx. Interestingly, original pathology was invasive ductal carcinoma (lumpectomy final pathology invasive lobular carcinoma). --No residual fullness or pain at surgical site. Discussed Oncotype Dx--will send pathology for testing and followup in 2 weeks. Moderate complexity 35 minute followup visit. 02/07/2022: Phone followup today to discuss [facility] tumor board discussion forplan with Dr. Magana for invasive ductal carcinoma of right breast. I contacted patient today after discussion in [facility] Tumor Board this am. Right axillary ultrasound was negative for adenopathy. Since HER2 is indeterminate and node negative, we recommended upfront lumpectomy. She will schedule with Dr. Magana and I will meet with her 2 weeks post operatively todiscuss pathology results and adjuvant therapy options. ---- Reason for Consultation: Palpable right breast mass--biopsy in December 2021 shows invasive ductal carcinoma (provisional grade 2) ER 95%, KY 95%, Her-2 equivocal IHC 1+ with equivocal FISH(HER2/CEP 17 1.4; Her2 copy number 4.0). Discussion of options for possible neoadjuvant therapy vs. upfront surgery. ORIGINAL CONSULT: 01/29/2022: This is a 62 year old female with minimal comorbidities who noted a fullness of right upper outer quadrant of breast--nontender, no skin erythema or dimpling, no nipple deviation or discharge, no obvious axillary fullness. She is , age 29 with first . Postmenopausal--no prior hysterectomy or oophorectomy, no history of hormone replacement therapy. + family history of a maternal aunt with breast cancer ( in s of natural causes). No family history of ovarian or other cancers. I reviewed her [facility] mammography 12/25/21 and ultrasound 01/01/2022 reports. Breast mass is about 3.6cm in greatest dimension on US (3.8 cm on mammogram). US guided breast biopsy on 01/01/2022 revealed invasive ductal carcinoma (provisional grade 2) ER 95%, KY 95%, Her-2 equivocal IHC 1+ with equivocal FISH (HER2/CEP 17 1.4; Her2 copy number 4.0). I discussed the case initially with Dr. Magana prior to referral and I discussed results above with the patient and her . Due to equivocal results of initial HER2 studies on breast biopsy, I recommended right axillary US with biopsy. If no enlarged axillary LN or axilla biopsy negative for cancer, she may proceed with upfront surgery. If biopsy is + for cancer, especially if Her2 positive, she should return to consent for neoadjuvant chemotherapy with TCHP. Following her US and biopsy within the next week, I will discuss her case at [facility] tumor board 02/03/2022 then coordinate phone followup to discuss multidisciplinary planof care. DIAGNOSIS: New diagnosis right upper inner quadrant breast cancer 3.6cm primary by US (clinical T2 Nx Mx) --01/01/2022 biopsy: invasive ductal carcinoma (provisional grade 2) ER 95%, KY 95%, Her-2 equivocal IHC 1+ with equivocal FISH (HER2/CEP 17 1.4; Her2 copy number 4.0). --02/18/2022 lumpectomy with sentinel lymph node biopsy: Invasive Lobular Carcinoma, [place] histologic score 8/9 (score 3), size 50mm, margins negative for carcinoma, ER 95%, KY 95%, Her2 1+ by IHC, negative. 2 sentinel lymph nodes negative for involvement by tumor. pT2 pN0 Mx. - Summary of Therapies Summary of Therapies: 02/18/2022 Right breast lumpectomy with sentinel lymph node biopsy. 04/01/2022: Oncotype results 18 therefore no indication for adjuvant chemotherapy. 04/24-05/20/2022: Completed Adjuvant radiation 4,005 cGy left breast (15 fractions over 20 days) and 1,000 cGy boost to cavity (4 fractions over 5 days) 05/21/2022: Anastrozole 1 mg daily to complete 5-year course. ROS Details: All systems reviewed & no additional complaints except as documented Subjective/ROS - Narrative: CONSTITUTIONAL: Negative for fatigue, negative for fever or night sweats. HEAD AND NECK: Negative for changes in hearing and vision. Negative for mouth ulcers, nasal congestion and nasal drainage. PULMONARY: Negative for chest pain, cough and dyspnea. CARDIOVASCULAR: Negative for claudication and irregular heartbeat/palpitations. GASTROINTESTINAL: Negative for abdominal pain, constipation, decreased appetite,diarrhea and vomiting. GENITOURINARY: Negative for dysuria and hematuria. ENDOCRINE: Negative for cold intolerance and heat intolerance--no hot flashes onanastrozole therapy. Right upper inner quadrant palpable mass since 10/2021, nowwell-healed since lumpectomy 02/18 then evacuation of hematoma 03/07/2022. CENTRAL NERVOUS SYSTEM: Negative for gait disturbance and headache. PSYCHIATRIC: Negative for anxiety or depression. DERMATOLOGICAL: Negative for pruritus and rash. Negative for suspicious skin lesions. No skin discoloration or dimpling over left breast. MUSCULOSKELETAL: She does note some increasing arthralgias on anastrazole; tolerable for the time being; Negative for back pain or joint symptoms. HEMATOLOGICAL: Negative for bleeding and easy bruising. Negative for history of transfusion or thromboembolic disease ALLERGY: Negative for environmental allergies and food allergies. [facility] - Medical History Medical History: Medical History (Last Reviewed 01/01/23 @ 08:39 by Lisa Hennessy MD) Breast cancer current rt Smoker - Surgical History Surgical History: Surgical History (Last Updated 02/19/23 @ 14:39 by Lamar Barba) H/O lumpectomy 01/2022 H/O splenectomy H/O tubal ligation History of lumpectomy of right breast -benign History of right salpingo-oophorectomy 01/21/2023 Hx of appendectomy Hx of tonsillectomy Status post laparoscopy with lysis of adhesions 01/21/2023 Status post total abdominal hysterectomy 01/21/2023 - Family History Family History: Family History (Last Reviewed 01/01/23 @ 08:39 by Lisa Hennessy MD) Father Liver cancer Diabetes Mother Hypertension Diabetes Heart disease Sister Diabetes - Social History Smoking Status: Former smoker Tobacco Type: cigarettes Substance Use Type: Alcohol Home Medications & Allergies Allergies penicillin G Adverse Reaction (Verified 12/31/22 13:20) convulsions Home Medications anastrozole 1 mg tablet 1 mg PO DAILY 90 days #90 tabs 06/11/22 [Rx Confirmed 02/19/23] calcium 500 mg tablet 1,000 mg PO DAILY 09/11/22 [History Confirmed 02/19/23] cholecalciferol (vitamin D3) 25 mcg (1,000 unit) tablet (Vitamin D3) 25 mcg PO DAILY 09/11/22 [History Confirmed 02/19/23] multivitamin 1 tab PO DAILY 02/19/23 [History Confirmed 02/19/23] Objective - Resuscitation Status Resuscitation Status: Full Code - Height/Weight Height/Weight: Height 5 ft 5 in Weight 74.298 kg - Vital Signs Vital Signs: 02/19/23 14:33 Temperature 98.6 F Pulse Rate [Left Brachial] 60 Respiratory Rate 20 Blood Pressure [Left Arm] 170/81 H 02 Sat by Pulse Oximetry 99 Oxygen Delivery Method Room Air - Pain Generalized Pain Intensity: 5 Physical Exam Narrative: CONSTITUTIONAL: The patient is in no acute distress. HEAD / FACE: Normocephalic. EYES: Pupils are equal and reactive to light. Conjunctivae and lids are benign in appearance. Ocular movement intact. EARS: Hearing grossly intact. Limited BREAST EXAM: Right breast well healed incision without mass right upperinner quadrant. No skin erythema or dimpling. No nipple discharge or deviation NOSE / MOUTH / THROAT: Nose, mouth, tongue and oropharynx are benign in appearance. No signs of inflammation. NECK / THYROID: Neck is supple. Thyroid is symmetrical, without thyromegaly, masses or palpable nodules. LYMPHATIC: No palpable cervical, supraclavicular, infraclavicular, or inguinal adenopathy. No left axillary adenopathy. Resolved fullness right axilla. RESPIRATORY: Normal to inspection. Lungs clear to auscultation and percussion. No wheezing, rales, rhonchi or rubs. Normal effort. CARDIOVASCULAR: Regular rate and rhythm. No murmurs, gallops, or rubs. VASCULAR: Carotid, radial, femoral and pedal pulses present bilaterally. No bruits. ABDOMEN: Bowel sounds normoactive. Soft, nontender and non-distended. No hepatosplenomegaly. No masses. GENITOURINARY: No CVA tenderness. No suprapubic fullness or tenderness. No groinadenopathy. INTEGUMENTARY: The skin is unremarkable. No rashes. No suspicious lesions BACK / SPINE: The back is nontender. MUSCULOSKELETAL: Normal musculature, no joint deformities or abnormalities, normal range of motion for all four extremities. EXTREMITIES: No edema, cyanosis or clubbing. No Merle sign. NEUROLOGICAL: Alert and oriented. Cranial nerves intact. No gross motor or sensory deficits. PSYCHIATRIC: No anxiety or evidence of depression. - ECOG Performance Status ECOG Score: 0 Results - Imaging Other Additional comments: Patient: Denia Al MR#: [id number] : 1960 Acct:[id number] Age/Sex: 62 / F ADM Date: 3 Loc: XT Room: Type: [facility] RCR Attending Dr: Lisa Hennessy MD Copies to: MD Ciera Kay APRN Marc Naderer, MD~ Ordering Provider: Ciera Vitale APRN Date of Service: 12/29/22 MM/MM diagnostic mammo BI w/CAD: surveilance CLINICAL DATA: History of right breast cancer. BILATERAL DIAGNOSTIC MAMMOGRAMS - FULL FIELD DIGITAL WITH TOMOSYNTHESIS AND CAD Routine and tomosynthesis craniocaudal and mediolateral oblique views of both breasts were obtained using low-dose digital technique. Comparison is made to prior studies from December 25, 2021 and January 01, 2022 (right). This examination was reviewed with the aid of CAD. There are scattered fibroglandular densities. There is new postoperative scarring and multiple hemostasis clips at the central medial right breast posteriorly. There is also skin thickening on that side from radiation therapy. Scattered benign calcifications are noted. There are no developing masses, typically malignant calcifications or architectural distortion on the left. MM/MM diagnostic mammo BI w/CAD IMPRESSION: POST THERAPY CHANGES ON THE RIGHT. NO NEW MAMMOGRAPHIC EVIDENCE OF MALIGNANCY. ROUTINE FOLLOW-UP IS RECOMMENDED IN ONE YEAR. RESULT CODE: 2 Benign Findings(s) DENSITY CODE: 2 (approximately 25-50% glandular) FOLLOW UP: 1YR Assessment and Plan - TNM Staging Staging: Right upper inner quadrant breast cancer 3.6cm primary by US (clinical T2 Nx Mx) --02/18/2022: Right lumpectomy/sentinel lymph node biopsy now Invasive Lobular Carcinoma, [place] histologic score 8/9 (score 3), size 50mm, margins negative for carcinoma, ER 95%, KY 95%, Her2 1+ by IHC, negative. 2 sentinel lymph nodes negative for involvement by tumor. pT2 pN0 Mx. (1) Malignant neoplasm of upper-inner quadrant of right breast in female, estrogen receptor positive This is a now 62 year old female with minimal comorbidities who noted a fullnessof right upper outer quadrant of breast in October 2021. Subsequent mammogram, US, and biopsy confirmed a 3.6cm invasive ductal carcinoma (provisional grade 2)ER 95%, KY 95%, Her-2 equivocal IHC 1+ with equivocal FISH (HER2/CEP 17 1.4; Her2 copy number 4.0). I discussed the case initially with Dr. Magana prior to referral and I discussed results above with the patient and her . Due to equivocal results of initial HER2 studies on breast biopsy, I recommended right axillary US with biopsy. If no enlarged axillary LN or axilla biopsy negative for cancer, she may proceed with upfront surgery. If biopsy is + for cancer, especially if Her2 positive, she should return to consent for neoadjuvant chemotherapy with TCHP. Following her US and biopsy within the next week, I will discuss her case at [facility] tumor board 02/03/2022 then coordinate phone followup to discuss multidisciplinary plan of care. High complexity visit--60 min face to face, 30 min to review outside records andcoordinate tumor board discussion of plan. 03/14/2022: Here for followup after right breast lumpectomy/sentinel lymph node on 02/18/2022. She had evacuation of post op hematoma on 03/07/2022. We reviewedpathology showing Invasive Lobular Carcinoma, [place] histologic score 8/9 (score 3), size 50mm, margins negative for carcinoma, ER 95%, KY 95%, [facility]. 2 sentinel lymph nodes negative for involvement by tumor. pT2 pN0 Mx. ----Today we discussed Oncotype Dx testing due to high grade ER+, KY+, Her2 negative cancer. She understands that if low risk, we would recommend referrralfor radiation therapy followed by hormonal therapy. If high risk recurrence score, we will discuss the benefit of adjuvant chemotherapy prior to radiation and hormonal therapy. She will return in 2 weeks to review Oncotype Dx results. 04/02/2022: Oncotype DX results reviewed. Recurrence score is 18 consistent witha 9-year recurrence rate of 5% if the patient is on appropriate hormonal therapyfollowing radiation. No benefit to chemotherapy. We discussed referral to radiation oncology and subsequent options for hormonal therapy. Since the patient still has uterus in place, aromatase inhibitor is favored over tamoxifen. We discussed side effects of aromatase inhibitors and patient will proceed with anastrozole 1 mg daily for 1 month trial following her radiation therapy. She will follow-up with me in about 8 to 10 weeks after completion of radiation therapy and 4 weeks of anastrozole for review of tolerance. Goal 5 to7 years of adjuvant aromatase inhibitor therapy. Moderate complexity followup 30 minutes to discuss Oncotype Dx results. 06/11/2022: Here for followup after radiation completed in late April 2022, then started anastrozole 1mg daily. Denies hot flashes, myalgias or arthralgiason anastrozole. We reviewed baseline DEXA scan with bilateral femoral neck osteopenia, normal lumbar spine T-score. We discussed continuing anastrozole for a total of 5-7 year course and adding calcium and vitamin D 2 tabs daily. Followup DEXA in 2 years (03/2024). Next f/u with [facility] as well as Dr. Magana for surveillance. 09/11/2022: Denia is here for interval 3-month follow-up on adjuvant endocrine therapy with anastrozole for early stage, hormone positive breast cancer. She denies any significant hot flashes or fatigue. She does not some increased arthralgias in the shoulders, elbows, wrists and knees since starting anastrazole. She takes Ibuprofen as needed and reports this to be tolerable for the time being. She is due for next mammogram in December 2022. Saw Dr. Magana 1 month ago on 08/04/2022 with normal exam. She reports no other changes or concerns. No changes on self breast exam or new areas of pain. - will follow up in ~ 4 months after next bilateral diagnostic mammogram. - she will see Dr. Magana again in about 8 weeks in October 2022. 01/01/2023: Denia is here for 4-month follow-up on endocrine therapy anastrozolefor early-stage hormone positive breast cancer. No new symptoms on anastrozole therapy and myalgias are well controlled. Mammogram was reviewed with no evidence of recurrence and she has no findings of recurrence on exam. We will extend her follow-up to 6 months since she is also following with Dr. Magana of general surgery every 3 to 4 months. 02/19/2023: Denia is here for add on visit; just seen about 6-7 weeks ago with no evidence of recurrence - negative mammogram. She was added on today due to concerns and untoward side effects related to her adjuvant endocrine therapy with anastrazole. Of note, she was started on anastrazole in April 2022. She was in her usual state of health until January 21, 2023 when she experienced severe, stabbing right lower quadrant abdominal pain that prompted urgent evaluation in the emergency department. Upon further work-up, she was found to have a very large right adnexal mass measuring ~ 13 cm. She was urgently transferred to [facility] and underwent total hysterectomy, bilateral salpingo-oophorectomy and lysis of adhesions on January 21, 2023. 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 Upon discharge from the hospital she has noted more significant hot flashes, fatigue and arthralgias associated with her AI therapy. Initially, she seems to have done well with anastrazole but has just not been the same since having her surgery 1 month ago. Otherwise, no changes onself breast exam, new bony pain, weight loss, abdominal pain, nausea/vomiting orheadaches. Keep same follow up as previously scheduled for June 2023. Will hold anastrazole x 2 weeks given her recent surgery and see if her side effects improve. Will restart thereafter, not yet ready to switch to Letrozole. If return ofsymptoms or increased in severity; she will notify us sooner and we may trial change in therapy from anastrazole to letrozole. (2) Osteopenia Qualifiers: Osteopenia location: femoral neck Laterality: bilateral Qualified Code(s): M85.851 - Other specified disorders of bone density and structure, right thigh; M85.852 - Other specified disorders of bone density and structure, left thigh Baseline DEXA scan prior to aromatase inhibitor therapy consistent with osteopenia bilateral femoral necks. We will treat with calcium and vitamin D supplementation 2 tabs daily. Next DEXA due: March 2024. (3) Aromatase inhibitor-associated arthralgia 02/19/2023: Increased after surgery for large right adnexal mass; status post total hysterectomy and bilateral salpingo-oophorectomy on 01/21/2023 at the [facility]. 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 Plan: Hold anastrazole x 2 weeks; restart thereafter. Notify clinic sooner than next scheduled appointment if she is having increased issues, side effects. (4) Adnexal mass Diagnosed with large right adnexal mass (~ 13 cm) ; status post total hysterectomy and bilateral salpingo-oophorectomy on 01/21/2023 at the [facility]. Pathology returned consistent with benign, mucinous cystoadenoma withno evidence of malignancy. (5) Encounter for monitoring aromatase inhibitor therapy Overall good tolerance; grade 1 arthralgias; no changes in therapy for time being. 02/19/2023: Add on visit due to worsening arthralgias, myalgias and hot flashes since hysterectomy and bilateral salpingo-oophorectomy 1 month ago on 01/21/2023. Given recent surgery, advised patient to hold anastrozole x2 weeks to see if her symptoms resolve. We briefly discussed changing therapy to letrozole, although this has much of the same side effect profile as anastrozole; however, some patients report better tolerance with change in therapy. -She does not wish to change from anastrozole quite yet; upon her holding anastrozole x2 weeks-patient will restart and notify the clinic if she feels that she is no longer able to tolerate. If she does okay, she was advised to continue anastrazole and we will follow up with here again in ~ 4 months (as previously scheduled). - Chemo Plan Chemo Plan (Dose, Rate, Freq): Anastrozole 1mg daily for 5-7 year course- started April 2022. Goal of Treatment: Curative - Time with Patient Time Spent with Patient (Follow Up Visit): 35 minutes Coordination of Care & Counseling Time: Greater than 50% of time spent with patient was for coordination of care (as documented) and [id number] counseling of patient and/or family. Dictated By: Ciera Vitale APRN DD/ [id number] Signed By: <Electronically signed by ALEX Vitale> 02/19/23 0512 [facility] Work Phone: [phone] 195-322906-08-2023 Progress note Author Lisa Hennessy [facility] January 01, 2023 8:42am Note Date/Time December 31, 2022 1:28p [facility] at [address] [address] Hem/Onc Follow Up Note - OP Signed Patient: Denia Al MR#: [id number] : 1960 Acct:[id number] Age/Sex: 62 / F Type: REG RCR Copies to: MD Tone Kay DO Marc Naderer, MD~ Subjective Date/Time of Service: Date of Service: 12/31/2022 Time of Service: 13:27 Chief Complaint: Patient is here today for a 4 month follow up visit for breast cancer and go over mamogram HPI: 12/31/2022: Denia is here for 4-month follow-up on endocrine therapy for early- stage hormone positive breast cancer. She is tolerating anastrozole reasonably well without significant hot flashes or fatigue. She does have some occasional joint aches which are stable with use of ibuprofen. No changes on self breast exam and 1 year mammogram did not show any evidence of recurrence. She has regular follow-up with Dr. Magana of general surgery, next evaluation in January. Okay to extend her follow-up from medical oncology to every 6 months or sooner if she has new clinical concerns. Low complexity 25-minute follow-up visit. 09/11/2022: Denia is here for interval 3-month follow-up on adjuvant endocrine therapy with anastrozole for early stage, hormone positive breast cancer. She denies any significant hot flashes or fatigue. She does not some increased arthralgias in the shoulders, elbows, wrists and knees since starting anastrazole. She takes Ibuprofen as needed and reports this to be tolerable for the time being. She is due for next mammogram in December 2022. Saw Dr. Magana 1 month ago on 08/04/2022 with normal exam. She reports no other changes or concerns. No changes on self breast exam or new areas of pain. 06/11/2022: Denia completed radiation therapy 3 weeks ago with start of anastrozole therapy. She denies any significant hot flashes, arthralgias or myalgias. She has intermittent tenderness in radiation field but no breast or arm lymphedema. Baseline DEXA from 04/10/2022 showed normal bone density (T score -0.6) lumbar spine, osteopenia (T score -1.4 left femoral neck, T score -1.5 right femoral neck) bilateral hips. We are adding calcium with vitamin D and patient may check Vit D level with primary care. Continue anastrozole 1mg daily. OK for 3 month f/u with [facility] and 6 month f/u with me, sooner if new issuesarise. 04/02/2022: Denia is here to review results of Oncotype DX from her original lumpectomy specimen. She has not had any further issues with her seroma. I discussed in detail her recurrence score of 18 which corresponds to a 5% recurrence risk at 9 years and no benefit to chemotherapy with age greater than 50. We discussed typical approach after lumpectomy is to proceed to radiation therapy and she will have consult today. We discussed options for hormonal therapy including tamoxifen versus aromatase inhibitors. She still has intact uterus and there is increased risk of endometrial cancer and thrombosis with tamoxifen and therefore aromatase inhibitor is recommended. We discussed side effects of aromatase inhibitor such as hot flashes, lower bone density, and about 20% incidence of myalgias and arthralgias. She will have baseline DEXA scan and will commence anastrozole 1 mg daily following her radiation therapy. I will see her at the end of 4 weeks of anastrozole to review side effects and to determine if she may continue 5 to 7 years of adjuvant hormonal therapy. Allquestions answered to the patient and her over this 35- minute visit to review Oncotype findings, counseling for radiation and AI therapy. 03/14/2022: Denia completed right upper outer quadrant lumpectomy by Dr. Magana on and is here to review pathology results and recommendations for adjuvant therapy. She had to return to OR for evacuation ofa large hematoma in biopsy cavity on 03/05/2022 and continues followup with Dr. Magana. I reviewed pathology results showing Invasive Lobular Carcinoma, Lynda histologic score 8/9 (score 3), size 50mm, margins negative for carcinoma, ER 95%, KY 95%, Her2 1+ by IHC, negative. 2 sentinel lymph nodes negative for involvement by tumor. pT2 pN0 Mx. Interestingly, original pathology was invasive ductal carcinoma (lumpectomy final pathology invasive lobular carcinoma). --No residual fullness or pain at surgical site. Discussed Oncotype Dx--will send pathology for testing and followup in 2 weeks. Moderate complexity 35 minute followup visit. 02/07/2022: Phone followup today to discuss [facility] tumor board discussion forplan with Dr. Magana for invasive ductal carcinoma of right breast. I contacted patient today after discussion in [facility] Tumor Board this am. Right axillary ultrasound was negative for adenopathy. Since HER2 is indeterminate and node negative, we recommended upfront lumpectomy. She will schedule with Dr. Magana and I will meet with her 2 weeks post operatively to discuss pathology results and adjuvant therapy options. Moderate complexity phone followup. ---- Reason for Consultation: Palpable right breast mass--biopsy in December 2021 shows invasive ductal carcinoma (provisional grade 2) ER 95%, KY 95%, Her-2 equivocal IHC 1+ with equivocal FISH(HER2/CEP 17 1.4; Her2 copy number 4.0). Discussion of options for possible neoadjuvant therapy vs. upfront surgery. ORIGINAL CONSULT: 01/29/2022: This is a 62 year old female with minimal comorbidities who noted a fullness of right upper outer quadrant of breast--nontender, no skin erythema or dimpling, no nipple deviation or discharge, no obvious axillary fullness. She is , age 29 with first . Postmenopausal--no prior hysterectomy or oophorectomy, no history of hormone replacement therapy. + family history of a maternal aunt with breast cancer ( in s of natural causes). No family history of ovarian or other cancers. I reviewed her [facility] mammography 12/25/21 and ultrasound 01/01/2022 reports. Breast mass is about 3.6cm in greatest dimension on US (3.8 cm on mammogram). US guided breast biopsy on 01/01/2022 revealed invasive ductal carcinoma (provisional grade 2) ER 95%, KY 95%, Her-2 equivocal IHC 1+ with equivocal FISH (HER2/CEP 17 1.4; Her2 copy number 4.0). I discussed the case initially with Dr. Magana prior to referral and I discussed results above with the patient and her . Due to equivocal results of initial HER2 studies on breast biopsy, I recommended right axillary US with biopsy. If no enlarged axillary LN or axilla biopsy negative for cancer, she may proceed with upfront surgery. If biopsy is + for cancer, especially if Her2 positive, she should return to consent for neoadjuvant chemotherapy with TCHP. Following her US and biopsy within the next week, I will discuss her case at [facility] tumor board 02/03/2022 then coordinate phone followup to discuss multidisciplinary planof care. High complexity visit--60 min face to face, 30 min to review outside records and coordinate tumor board discussion of plan. DIAGNOSIS: New diagnosis right upper inner quadrant breast cancer 3.6cm primary by US (clinical T2 Nx Mx) --01/01/2022 biopsy: invasive ductal carcinoma (provisional grade 2) ER 95%, KY 95%, Her-2 equivocal IHC 1+ with equivocal FISH (HER2/CEP 17 1.4; Her2 copy number 4.0). --02/18/2022 lumpectomy with sentinel lymph node biopsy: Invasive Lobular Carcinoma, Lynda histologic score 8/9 (score 3), size 50mm, margins negative for carcinoma, ER 95%, KY 95%, Her2 1+ by IHC, negative. 2 sentinel lymph nodes negative for involvement by tumor. pT2 pN0 Mx. - Summary of Therapies Summary of Therapies: 02/18/2022 Right breast lumpectomy with sentinel lymph node biopsy. 04/01/2022: Oncotype results 18 therefore no indication for adjuvant chemotherapy. 04/24-05/20/2022: Completed Adjuvant radiation 4,005 cGy left breast (15 fractions over 20 days) and 1,000 cGy boost to cavity (4 fractions over 5 days) 05/21/2022: Anastrozole 1 mg daily to complete 5-year course. ROS Details: All systems reviewed & no additional complaints except as documented Subjective/ROS - Narrative: CONSTITUTIONAL: Negative for fatigue, negative for fever or night sweats. HEAD AND NECK: Negative for changes in hearing and vision. Negative for mouth ulcers, nasal congestion and nasal drainage. PULMONARY: Negative for chest pain, cough and dyspnea. CARDIOVASCULAR: Negative for claudication and irregular heartbeat/palpitations. GASTROINTESTINAL: Negative for abdominal pain, constipation, decreased appetite,diarrhea and vomiting. GENITOURINARY: Negative for dysuria and hematuria. ENDOCRINE: Negative for cold intolerance and heat intolerance--no hot flashes onanastrozole therapy. Right upper inner quadrant palpable mass since 10/2021, nowwell-healed since lumpectomy 02/18 then evacuation of hematoma 03/07/2022. CENTRAL NERVOUS SYSTEM: Negative for gait disturbance and headache. PSYCHIATRIC: Negative for anxiety or depression. DERMATOLOGICAL: Negative for pruritus and rash. Negative for suspicious skin lesions. No skin discoloration or dimpling over left breast. MUSCULOSKELETAL: She does note some increasing arthralgias on anastrazole; tolerable for the time being; Negative for back pain or joint symptoms. HEMATOLOGICAL: Negative for bleeding and easy bruising. Negative for history of transfusion or thromboembolic disease ALLERGY: Negative for environmental allergies and food allergies. PMF - History Attestation statement: The following information was validated with the patient. Source: Old Records Reviewed - Medical History Medical History: Medical History (Last Reviewed 01/01/23 @ 08:39 by Lisa Hennessy MD) Breast cancer current rt Smoker - Surgical History Surgical History: Surgical History (Last Reviewed 01/01/23 @ 08:39 by Lisa Hennessy MD) H/O lumpectomy 01/2022 H/O splenectomy H/O tubal ligation History of lumpectomy of right breast -benign Hx of appendectomy Hx of tonsillectomy - Family History Family History: Family History (Last Reviewed 01/01/23 @ 08:39 by Lisa Hennessy MD) Father Liver cancer Diabetes Mother Hypertension Diabetes Heart disease Sister Diabetes - Social History Smoking Status: Former smoker Tobacco Type: cigarettes Substance Use Type: Alcohol Home Medications & Allergies Allergies penicillin G Adverse Reaction (Verified 12/31/22 13:20) convulsions Home Medications anastrozole 1 mg tablet 1 mg PO DAILY 90 days #90 tabs 06/11/22 [Rx Confirmed 12/31/22] calcium 500 mg tablet 1,000 mg PO DAILY 09/11/22 [History Confirmed 12/31/22] cholecalciferol (vitamin D3) 25 mcg (1,000 unit) tablet (Vitamin D3) 25 mcg PO DAILY 09/11/22 [History Confirmed 12/31/22] Objective - Height/Weight Height/Weight: Height 5 ft 5 in Weight 76.204 kg - Vital Signs Vital Signs: 12/31/22 13:23 Temperature 97.8 F Pulse Rate [Left Brachial] 62 Respiratory Rate 16 Blood Pressure [Left Arm] 172/84 H 02 Sat by Pulse Oximetry 98 Oxygen Delivery Method Room Air Physical Exam Narrative: CONSTITUTIONAL: The patient is in no acute distress. HEAD / FACE: Normocephalic. EYES: Pupils are equal and reactive to light. Conjunctivae and lids are benign in appearance. Ocular movement intact. EARS: Hearing grossly intact. Limited BREAST EXAM: Right breast well healed incision without mass right upperinner quadrant. No skin erythema or dimpling. No nipple discharge or deviation NOSE / MOUTH / THROAT: Nose, mouth, tongue and oropharynx are benign in appearance. No signs of inflammation. NECK / THYROID: Neck is supple. Thyroid is symmetrical, without thyromegaly, masses or palpable nodules. LYMPHATIC: No palpable cervical, supraclavicular, infraclavicular, or inguinal adenopathy. No left axillary adenopathy. Resolved fullness right axilla. RESPIRATORY: Normal to inspection. Lungs clear to auscultation and percussion. No wheezing, rales, rhonchi or rubs. Normal effort. CARDIOVASCULAR: Regular rate and rhythm. No murmurs, gallops, or rubs. VASCULAR: Carotid, radial, femoral and pedal pulses present bilaterally. No bruits. ABDOMEN: Bowel sounds normoactive. Soft, nontender and non-distended. No hepatosplenomegaly. No masses. GENITOURINARY: No CVA tenderness. No suprapubic fullness or tenderness. No groinadenopathy. INTEGUMENTARY: The skin is unremarkable. No rashes. No suspicious lesions BACK / SPINE: The back is nontender. MUSCULOSKELETAL: Normal musculature, no joint deformities or abnormalities, normal range of motion for all four extremities. EXTREMITIES: No edema, cyanosis or clubbing. No Merle sign. NEUROLOGICAL: Alert and oriented. Cranial nerves intact. No gross motor or sensory deficits. PSYCHIATRIC: No anxiety or evidence of depression. - ECOG Performance Status ECOG Score: 0 Results - Labs Labs: No labs for review - Impressions Date of Service: 12/29/22 MM/MM diagnostic mammo BI w/CAD: surveilance CLINICAL DATA: History of right breast cancer. BILATERAL DIAGNOSTIC MAMMOGRAMS - FULL FIELD DIGITAL WITH TOMOSYNTHESIS AND CAD Routine and tomosynthesis craniocaudal and mediolateral oblique views of both breasts were obtained using low-dose digital technique. Comparison is made to prior studies from December 25, 2021 and January 01, 2022 (right). This examination was reviewed with the aid of CAD. There are scattered fibroglandular densities. There is new postoperative scarring and multiple hemostasis clips at the central medial right breast posteriorly. There is also skin thickening on that side from radiation therapy. Scattered benign calcifications are noted. There are no developing masses, typically malignant calcifications or architectural distortion on the left. MM/MM diagnostic mammo BI w/CAD IMPRESSION: POST THERAPY CHANGES ON THE RIGHT. NO NEW MAMMOGRAPHIC EVIDENCE OF MALIGNANCY. ROUTINE FOLLOW-UP IS RECOMMENDED IN ONE YEAR. RESULT CODE: 2 Benign Findings(s) DENSITY CODE: 2 (approximately 25-50% glandular) FOLLOW UP: 1YR The false-negative rate of mammography is approximately 10-percent. Management of a palpable abnormality must be based on clinical grounds. Patient was entered into a reminder system with a target due date for the next mammogram. Impression dictated by: Eloisa Argueta M.D.12/29/2022 1:43 PM Assessment and Plan - TNM Staging Staging: Right upper inner quadrant breast cancer 3.6cm primary by US (clinical T2 Nx Mx) --02/18/2022: Right lumpectomy/sentinel lymph node biopsy now Invasive Lobular Carcinoma, Lynda histologic score 8/9 (score 3), size 50mm, margins negative for carcinoma, ER 95%, KY 95%, Her2 1+ by IHC, negative. 2 sentinel lymph nodes negative for involvement by tumor. pT2 pN0 Mx. (1) Malignant neoplasm of upper-inner quadrant of right breast in female, estrogen receptor positive This is a now 62 year old female with minimal comorbidities who noted a fullnessof right upper outer quadrant of breast in October 2021. Subsequent mammogram, US, and biopsy confirmed a 3.6cm invasive ductal carcinoma (provisional grade 2)ER 95%, KY 95%, Her-2 equivocal IHC 1+ with equivocal FISH (HER2/CEP 17 1.4; Her2 copy number 4.0). I discussed the case initially with Dr. Magana prior to referral and I discussed results above with the patient and her . Due to equivocal results of initial HER2 studies on breast biopsy, I recommended right axillary US with biopsy. If no enlarged axillary LN or axilla biopsy negative for cancer, she may proceed with upfront surgery. If biopsy is + for cancer, especially if [id number], she should return to consent for neoadjuvant chemotherapy with TCHP. Following her US and biopsy within the next week, I will discuss her case at [facility] tumor board 02/03/2022 then coordinate phone followup to discuss multidisciplinary plan of care. High complexity visit--60 min face to face, 30 min to review outside records andcoordinate tumor board discussion of plan. 03/14/2022: Here for followup after right breast lumpectomy/sentinel lymph node on 02/18/2022. She had evacuation of post op hematoma on 03/07/2022. We reviewedpathology showing Invasive Lobular Carcinoma, [place] histologic score 8/9 (score 3), size 50mm, margins negative for carcinoma, ER 95%, KY 95%, [facility]. 2 sentinel lymph nodes negative for involvement by tumor. pT2 pN0 Mx. ----Today we discussed Oncotype Dx testing due to high grade ER+, KY+, Her2 negative cancer. She understands that if low risk, we would recommend referrralfor radiation therapy followed by hormonal therapy. If high risk recurrence score, we will discuss the benefit of adjuvant chemotherapy prior to radiation and hormonal therapy. She will return in 2 weeks to review Oncotype Dx results. 04/02/2022: Oncotype DX results reviewed. Recurrence score is 18 consistent witha 9-year recurrence rate of 5% if the patient is on appropriate hormonal therapyfollowing radiation. No benefit to chemotherapy. We discussed referral to radiation oncology and subsequent options for hormonal therapy. Since the patient still has uterus in place, aromatase inhibitor is favored over tamoxifen. We discussed side effects of aromatase inhibitors and patient will proceed with anastrozole 1 mg daily for 1 month trial following her radiation therapy. She will follow-up with me in about 8 to 10 weeks after completion of radiation therapy and 4 weeks of anastrozole for review of tolerance. Goal 5 to7 years of adjuvant aromatase inhibitor therapy. Moderate complexity followup 30 minutes to discuss Oncotype Dx results. 06/11/2022: Here for followup after radiation completed in late April 2022, then started anastrozole 1mg daily. Denies hot flashes, myalgias or arthralgiason anastrozole. We reviewed baseline DEXA scan with bilateral femoral neck osteopenia, normal lumbar spine T-score. We discussed continuing anastrozole for a total of 5-7 year course and adding calcium and vitamin D 2 tabs daily. Followup DEXA in 2 years (03/2024). Next f/u with [facility] as well as Dr. Magana for surveillance. 09/11/2022: Denia is here for interval 3-month follow-up on adjuvant endocrine therapy with anastrozole for early stage, hormone positive breast cancer. She denies any significant hot flashes or fatigue. She does not some increased arthralgias in the shoulders, elbows, wrists and knees since starting anastrazole. She takes Ibuprofen as needed and reports this to be tolerable for the time being. She is due for next mammogram in December 2022. Saw Dr. Magana 1 month ago on 08/04/2022 with normal exam. She reports no other changes or concerns. No changes on self breast exam or new areas of pain. - will follow up in ~ 4 months after next bilateral diagnostic mammogram. - she will see Dr. Magana again in about 8 weeks in October 2022. 01/01/2023: Denia is here for 4-month follow-up on endocrine therapy anastrozolefor early-stage hormone positive breast cancer. No new symptoms on anastrozole therapy and myalgias are well controlled. Mammogram was reviewed with no evidence of recurrence and she has no findings of recurrence on exam. We will extend her follow-up to 6 months since she is also following with Dr. Magana of general surgery every 3 to 4 months. Patient is in agreement with this plan over this 25-minute low complexity follow-up visit. (2) Osteopenia Qualifiers: Osteopenia location: femoral neck Laterality: bilateral Qualified Code(s): M85.851 - Other specified disorders of bone density and structure, right thigh; M85.852 - Other specified disorders of bone density and structure, left thigh Baseline DEXA scan prior to aromatase inhibitor therapy consistent with osteopenia bilateral femoral necks. We will treat with calcium and vitamin D supplementation 2 tabs daily. Next DEXA due: March 2024. (3) Encounter for monitoring aromatase inhibitor therapy Overall good tolerance; grade 1 arthralgias; no changes in therapy for time being. - Chemo Plan Chemo Plan (Dose, Rate, Freq): Anastrozole 1mg daily for 5-7 year course- started April 2022. Goal of Treatment: Curative - Time with Patient Time Spent with Patient (Follow Up Visit): 25 minutes - Low complexity for follow-up exam and mammogram Coordination of Care & Counseling Time: Greater than 50% of time spent with patient was for coordination of care (as documented) and [id number] counseling of patient and/or family. Dictated By: Lisa Hennessy MD DD/ [id number] Signed By: <Electronically signed by MD Lisa Hennessy> 01/01/23 0842 [facility] Work Phone: 1(274) 252-230102-16-2023 Progress note Author Ciera Vitale [facility] September 11, 2022 4:51pm Note Date/Time September 11, 2022 4:47pm [facility] [place] [address] Hem/Onc Follow Up Note - OP Signed Patient: Denia Al MR#: [id number] : 1960 Acct:[id number] Age/Sex: 62 / F Type: REG RCR Copies to: MD Howard Kay MD~ Subjective Date/Time of Service: Date of Service: 09/11/2022 Time of Service: 16:44 Chief Complaint: Patient is here for a 3 month follow up for right breast cancer. Taking anastrozole. States she gets achy. HPI: 09/11/2022: Denia is here for interval 3-month follow-up on adjuvant endocrine therapy with anastrozole for early stage, hormone positive breast cancer. She denies any significant hot flashes or fatigue. She does not some increased arthralgias in the shoulders, elbows, wrists and knees since starting anastrazole. She takes Ibuprofen as needed and reports this to be tolerable for the time being. She is due for next mammogram in December 2022. Saw Dr. Magana 1 month ago on 08/04/2022 with normal exam. She reports no other changes or concerns. No changes on self breast exam or new areas of pain. 06/11/2022: Denia completed radiation therapy 3 weeks ago with start of anastrozole therapy. She denies any significant hot flashes, arthralgias or myalgias. She has intermittent tenderness in radiation field but no breast or arm lymphedema. Baseline DEXA from 04/10/2022 showed normal bone density (T score -0.6) lumbar spine, osteopenia (T score -1.4 left femoral neck, T score -1.5 right femoral neck) bilateral hips. We are adding calcium with vitamin D and patient may check Vit D level with primary care. Continue anastrozole 1mg daily. OK for 3 month f/u with [facility] and 6 month f/u with me, sooner if new issuesarise. 04/02/2022: Denia is here to review results of Oncotype DX from her original lumpectomy specimen. She has not had any further issues with her seroma. I discussed in detail her recurrence score of 18 which corresponds to a 5% recurrence risk at 9 years and no benefit to chemotherapy with age greater than 50. We discussed typical approach after lumpectomy is to proceed to radiation therapy and she will have consult today. We discussed options for hormonal therapy including tamoxifen versus aromatase inhibitors. She still has intact uterus and there is increased risk of endometrial cancer and thrombosis with tamoxifen and therefore aromatase inhibitor is recommended. We discussed side effects of aromatase inhibitor such as hot flashes, lower bone density, and about 20% incidence of myalgias and arthralgias. She will have baseline DEXA scan and will commence anastrozole 1 mg daily following her radiation therapy. I will see her at the end of 4 weeks of anastrozole to review side effects and to determine if she may continue 5 to 7 years of adjuvant hormonal therapy. Allquestions answered to the patient and her over this 35- minute visit to review Oncotype findings, counseling for radiation and AI therapy. 03/14/2022: Denia completed right upper outer quadrant lumpectomy by Dr. Magana on and is here to review pathology results and recommendations for adjuvant therapy. She had to return to OR for evacuation ofa large hematoma in biopsy cavity on 03/05/2022 and continues followup with Dr. Magana. I reviewed pathology results showing Invasive Lobular Carcinoma, Lyn[place] histologic score 8/9 (score 3), size 50mm, margins negative for carcinoma, ER 95%, KY 95%, Her2 1+ by IHC, negative. 2 sentinel lymph nodes negative for involvement by tumor. pT2 pN0 Mx. Interestingly, original pathology was invasive ductal carcinoma (lumpectomy final pathology invasive lobular carcinoma). --No residual fullness or pain at surgical site. Discussed Oncotype Dx--will send pathology for testing and followup in 2 weeks. Moderate complexity 35 minute followup visit. 02/07/2022: Phone followup today to discuss [facility] tumor board discussion forplan with Dr. Magana for invasive ductal carcinoma of right breast. I contacted patient today after discussion in [facility] Tumor Board this am. Right axillary ultrasound was negative for adenopathy. Since HER2 is indeterminate and node negative, we recommended upfront lumpectomy. She will schedule with Dr. Magana and I will meet with her 2 weeks post operatively todiscuss pathology results and adjuvant therapy options. Moderate complexity phone followup. ---- Reason for Consultation: Palpable right breast mass--biopsy in December 2021 shows invasive ductal carcinoma (provisional grade 2) ER 95%, KY 95%, Her-2 equivocal IHC 1+ with equivocal FISH(HER2/CEP 17 1.4; Her2 copy number 4.0). Discussion of options for possible neoadjuvant therapy vs. upfront surgery. ORIGINAL CONSULT: 01/29/2022: This is a 61 year old female with minimal comorbidities who noted a fullness of right upper outer quadrant of breast--nontender, no skin erythema or dimpling, no nipple deviation or discharge, no obvious axillary fullness. She is , age 29 with first . Postmenopausal--no prior hysterectomy or oophorectomy, no history of hormone replacement therapy. + family history of a maternal aunt with breast cancer ( in 90s of natural causes). No family history of ovarian or other cancers. I reviewed her [facility] mammography 12/25/21 and ultrasound 01/01/2022 reports. Breast mass is about 3.6cm in greatest dimension on US (3.8 cm on mammogram). US guided breast biopsy on 01/01/2022 revealed invasive ductal carcinoma (provisional grade 2) ER 95%, KY 95%, Her-2 equivocal IHC 1+ with equivocal FISH (HER2/CEP 17 1.4; Her2 copy number 4.0). I discussed the case initially with Dr. Magana prior to referral and I discussed results above with the patient and her . Due to equivocal results of initial HER2 studies on breast biopsy, I recommended right axillary US with biopsy. If no enlarged axillary LN or axilla biopsy negative for cancer, she may proceed with upfront surgery. If biopsy is + for cancer, especially if Her2 positive, she should return to consent for neoadjuvant chemotherapy with TCHP. Following her US and biopsy within the next week, I will discuss her case at [facility] tumor board 02/03/2022 then coordinate phone followup to discuss multidisciplinary planof care. High complexity visit--60 min face to face, 30 min to review outside records and coordinate tumor board discussion of plan. DIAGNOSIS: New diagnosis right upper inner quadrant breast cancer 3.6cm primary by US (clinical T2 Nx Mx) --01/01/2022 biopsy: invasive ductal carcinoma (provisional grade 2) ER 95%, KY 95%, Her-2 equivocal IHC 1+ with equivocal FISH (HER2/CEP 17 1.4; Her2 copy number 4.0). --02/18/2022 lumpectomy with sentinel lymph node biopsy: Invasive Lobular Carcinoma, Lynda histologic score 8/9 (score 3), size 50mm, margins negative for carcinoma, ER 95%, KY 95%, Her2 1+ by IHC, negative. 2 sentinel lymphnodes negative for involvement by tumor. pT2 pN0 Mx. - Summary of Therapies Summary of Therapies: 02/18/2022 Right breast lumpectomy with sentinel lymph node biopsy. 04/01/2022: Oncotype results 18 therefore no indication for adjuvant chemotherapy. 04/24-05/20/2022: Completed Adjuvant radiation 4,005 cGy left breast (15 fractions over 20 days) and 1,000 cGy boost to cavity (4 fractions over 5 days) 05/21/2022: Anastrozole 1 mg daily to complete 5-year course. ROS Details: All systems reviewed & no additional complaints except as documented Subjective/ROS - Narrative: CONSTITUTIONAL: Negative for fatigue, negative for fever or night sweats. HEAD AND NECK: Negative for changes in hearing and vision. Negative for mouth ulcers, nasal congestion and nasal drainage. PULMONARY: Negative for chest pain, cough and dyspnea. CARDIOVASCULAR: Negative for claudication and irregular heartbeat/palpitations. GASTROINTESTINAL: Negative for abdominal pain, constipation, decreased appetite,diarrhea and vomiting. GENITOURINARY: Negative for dysuria and hematuria. ENDOCRINE: Negative for cold intolerance and heat intolerance--no hot flashes onanastrozole therapy. Right upper inner quadrant palpable mass since 10/2021, nowwell-healed since lumpectomy 02/18 then evacuation of hematoma 03/07/2022. CENTRAL NERVOUS SYSTEM: Negative for gait disturbance and headache. PSYCHIATRIC: Negative for anxiety or depression. DERMATOLOGICAL: Negative for pruritus and rash. Negative for suspicious skin lesions. No skin discoloration or dimpling over left breast. MUSCULOSKELETAL: She does note some increasing arthralgias on anastrazole; tolerable for the time being; Negative for back pain or joint symptoms. HEMATOLOGICAL: Negative for bleeding and easy bruising. Negative for history of transfusion or thromboembolic disease ALLERGY: Negative for environmental allergies and food allergies. [facility] - Medical History Medical History: Medical History (Last Reviewed 06/11/22 @ 21:23 by Lisa Hennessy MD) Breast cancer current rt Smoker - Surgical History Surgical History: Surgical History (Last Reviewed 06/11/22 @ 21:23 by Lisa Hennessy MD) H/O lumpectomy 01/2022 H/O splenectomy H/O tubal ligation History of lumpectomy of right breast -benign Hx of appendectomy Hx of tonsillectomy - Family History Family History: Family History (Last Reviewed 06/11/22 @ 21:23 by Lisa Hennessy MD) Father Liver cancer Diabetes Mother Hypertension Diabetes Heart disease Sister Diabetes - Social History Smoking Status: Former smoker Tobacco Type: cigarettes Substance Use Type: Alcohol Home Medications & Allergies Allergies penicillin G Adverse Reaction (Verified 06/11/22 13:12) convulsions Home Medications mometasone 0.1 % topical cream 1 applic topical DAILY #45 grams 04/10/22 [Rx Confirmed 09/11/22] anastrozole 1 mg tablet 1 mg PO DAILY 90 days #90 tabs 06/11/22 [Rx Confirmed 09/11/22] calcium 500 mg tablet 1,000 mg PO DAILY 09/11/22 [History Confirmed 09/11/22] cholecalciferol (vitamin D3) 25 mcg (1,000 unit) tablet (Vitamin D3) 25 mcg PO DAILY 09/11/22 [History Confirmed 09/11/22] Objective - Resuscitation Status Resuscitation Status: Full Code - Height/Weight Height/Weight: Height 5 ft 5 in Weight 76.1 kg - Vital Signs Vital Signs: 09/11/22 14:57 Temperature 98.4 F Pulse Rate [Left Brachial] 89 Respiratory Rate 20 Blood Pressure [Left Arm] 144/78 H 02 Sat by Pulse Oximetry 99 Oxygen Delivery Method Room Air Physical Exam Narrative: CONSTITUTIONAL: The patient is in no acute distress. HEAD / FACE: Normocephalic. EYES: Pupils are equal and reactive to light. Conjunctivae and lids are benign in appearance. Ocular movement intact. EARS: Hearing grossly intact. Limited BREAST EXAM: Right breast well healed incision without mass right upperinner quadrant. No skin erythema or dimpling. No nipple discharge or deviation NOSE / MOUTH / THROAT: Nose, mouth, tongue and oropharynx are benign in appearance. No signs of inflammation. NECK / THYROID: Neck is supple. Thyroid is symmetrical, without thyromegaly, masses or palpable nodules. LYMPHATIC: No palpable cervical, supraclavicular, infraclavicular, or inguinal adenopathy. No left axillary adenopathy. Resolved fullness right axilla. RESPIRATORY: Normal to inspection. Lungs clear to auscultation and percussion. No wheezing, rales, rhonchi or rubs. Normal effort. CARDIOVASCULAR: Regular rate and rhythm. No murmurs, gallops, or rubs. VASCULAR: Carotid, radial, femoral and pedal pulses present bilaterally. No bruits. ABDOMEN: Bowel sounds normoactive. Soft, nontender and non-distended. No hepatosplenomegaly. No masses. GENITOURINARY: No CVA tenderness. No suprapubic fullness or tenderness. No groinadenopathy. INTEGUMENTARY: The skin is unremarkable. No rashes. No suspicious lesions BACK / SPINE: The back is nontender. MUSCULOSKELETAL: Normal musculature, no joint deformities or abnormalities, normal range of motion for all four extremities. EXTREMITIES: No edema, cyanosis or clubbing. No Merle sign. NEUROLOGICAL: Alert and oriented. Cranial nerves intact. No gross motor or sensory deficits. PSYCHIATRIC: No anxiety or evidence of depression. - ECOG Performance Status ECOG Score: 0 Assessment and Plan - TNM Staging Staging: Right upper inner quadrant breast cancer 3.6cm primary by US (clinical T2 Nx Mx) --02/18/2022: Right lumpectomy/sentinel lymph node biopsy now Invasive Lobular Carcinoma, [place] histologic score 8/9 (score 3), size 50mm, margins negative for carcinoma, ER 95%, KY 95%, Her2 1+ by IHC, negative. 2 sentinel lymph nodes negative for involvement by tumor. pT2 pN0 Mx. (1) Malignant neoplasm of upper-inner quadrant of right breast in female, estrogen receptor positive This is a now 62 year old female with minimal comorbidities who noted a fullnessof right upper outer quadrant of breast in October 2021. Subsequent mammogram, US, and biopsy confirmed a 3.6cm invasive ductal carcinoma (provisional grade 2)ER 95%, KY 95%, Her-2 equivocal IHC 1+ with equivocal FISH (HER2/CEP 17 1.4; Her2 copy number 4.0). I discussed the case initially with Dr. Magana prior to referral and I discussed results above with the patient and her . Due to equivocal results of initial HER2 studies on breast biopsy, I recommended right axillary US with biopsy. If no enlarged axillary LN or axilla biopsy negative for cancer, she may proceed with upfront surgery. If biopsy is + for cancer, especially if Her2 positive, she should return to consent for neoadjuvant chemotherapy with TCHP. Following her US and biopsy within the next week, I will discuss her case at [facility] tumor board 02/03/2022 then coordinate phone followup to discuss multidisciplinary plan of care. High complexity visit--60 min face to face, 30 min to review outside records andcoordinate tumor board discussion of plan. 03/14/2022: Here for followup after right breast lumpectomy/sentinel lymph node on 02/18/2022. She had evacuation of post op hematoma on 03/07/2022. We reviewedpathology showing Invasive Lobular Carcinoma, Lynda histologic score 8/9 (score 3), size 50mm, margins negative for carcinoma, ER 95%, KY 95%, [facility]. 2 sentinel lymph nodes negative for involvement by tumor. pT2 pN0 Mx. ----Today we discussed Oncotype Dx testing due to high grade ER+, KY+, Her2 negative cancer. She understands that if low risk, we would recommend referrralfor radiation therapy followed by hormonal therapy. If high risk recurrence score, we will discuss the benefit of adjuvant chemotherapy prior to radiation and hormonal therapy. She will return in 2 weeks to review Oncotype Dx results. 04/02/2022: Oncotype DX results reviewed. Recurrence score is 18 consistent witha 9-year recurrence rate of 5% if the patient is on appropriate hormonal therapyfollowing radiation. No benefit to chemotherapy. We discussed referral to radiation oncology and subsequent options for hormonal therapy. Since the patient still has uterus in place, aromatase inhibitor is favored over tamoxifen. We discussed side effects of aromatase inhibitors and patient will proceed with anastrozole 1 mg daily for 1 month trial following her radiation therapy. She will follow-up with me in about 8 to 10 weeks after completion of radiation therapy and 4 weeks of anastrozole for review of tolerance. Goal 5 to7 years of adjuvant aromatase inhibitor therapy. Moderate complexity followup 30 minutes to discuss Oncotype Dx results. 06/11/2022: Here for followup after radiation completed in late April 2022, then started anastrozole 1mg daily. Denies hot flashes, myalgias or arthralgiason anastrozole. We reviewed baseline DEXA scan with bilateral femoral neck osteopenia, normal lumbar spine T-score. We discussed continuing anastrozole for a total of 5-7 year course and adding calcium and vitamin D 2 tabs daily. Followup DEXA in 2 years (03/2024). Next f/u with [facility] as well as Dr. Magana for surveillance. 09/11/2022: Denia is here for interval 3-month follow-up on adjuvant endocrine therapy with anastrozole for early stage, hormone positive breast cancer. She denies any significant hot flashes or fatigue. She does not some increased arthralgias in the shoulders, elbows, wrists and knees since starting anastrazole. She takes Ibuprofen as needed and reports this to be tolerable for the time being. She is due for next mammogram in December 2022. Saw Dr. Magana 1 month ago on 08/04/2022 with normal exam. She reports no other changes or concerns. No changes on self breast exam or new areas of pain. - will follow up in ~ 4 months after next bilateral diagnostic mammogram. - she will see Dr. Magana again in about 8 weeks in October 2022. (2) Osteopenia Qualifiers: Osteopenia location: femoral neck Laterality: bilateral Qualified Code(s): M85.851 - Other specified disorders of bone density and structure, right thigh; M85.852 - Other specified disorders of bone density and structure, left thigh Baseline DEXA scan prior to aromatase inhibitor therapy consistent with osteopenia bilateral femoral necks. We will treat with calcium and vitamin D supplementation 2 tabs daily. Next DEXA due: March 2024. (3) Encounter for monitoring aromatase inhibitor therapy Overall good tolerance; grade 1 arthralgias; no changes in therapy for time being. - Chemo Plan Chemo Plan (Dose, Rate, Freq): Anastrozole 1mg daily for 5-7 year course- started April 2022. Goal of Treatment: Curative - Time with Patient Time Spent with Patient (Follow Up Visit): 25 minutes Coordination of Care & Counseling Time: Greater than 50% of time spent with patient was for coordination of care (as documented) and [id number] counseling of patient and/or family. Dictated By: Ciera Vitale APRN DD/ 43 Signed By: <Electronically signed by ALEX Vitale> 09/11/22 1651 [facility] Work Phone: 1(450) 901-163311-23-2022 Progress note Author Kylee Lindsay [facility] June 18, 2022 9:21am Note Date/Time June 18, 2022 8:35am [facility] at [address] [address] Rad Onc Follow Up Note - OP Signed Patient: Denia Al MR#: [id number] : 1960 Acct:[id number] Age/Sex: 62 / F Type: REG RCR Copies to: MD Tone Kay DO Marc Naderer, MD~ Date of Service Service Date: 06/18/22 Assessment & Plan (1) Malignant neoplasm of upper-inner quadrant of right breast in female, estrogen receptor positive Plan: RTC PRN Assessment: 62-year-old female with pT2N0 invasive lobular carcinoma and invasive ductal carcinoma (biopsy) of the upper outer quadrant of the right breast, ER/KY positive HER2 negative. We reviewed her pathology in detail which shows a 5 cm primary tumor, grade 3, with negative sentinel lymph nodes 0/2 and clear margins. There was no LVSI. May 20, 2022 patient completed whole breast radiation to a dose of 40.05 Shi in 15 fractions with a boost to the cavity of 10 Shi in 4 fractions. She tolerated her radiation therapy well. She was given anastrozole Medical Oncology and denies any side effects. I am pleased with her clinical response. We reviewed light massage techniques to help prevent radiation fibrosis. She has appropriate follow-up with both medical oncology and surgery so we will discharge her today in their care. We are happy to see her back at any time if there is a need for additional radiation or radiation related concerns. Follow Up Note - Narrative 61-year-old female who reported fullness of the right breast. There is no palpable mass no skin changes. December 25, 2021 diagnostic mammogram with US, showed a macro lobular mass at the 3 o'clock position 4.5 cm in diameter corresponding to the patient's palpable lump. Ultrasound showed macro lobular heterogeneous hypoechoic mass 3.8 cm. January 01, 2022 ultrasound-guided breast biopsy confirmed invasive ductal carcinoma, provisional grade 2, ER/KY positive with HER2 equivocal IHC 1+ with equivocalFISH. HER2 copy #4. Clinical stage T2 NX MX. February 07, 2022 right axillary ultrasound was negative for adenopathy. Since [id number] indeterminate node-negative she was recommended for upfront surgery. January 16, 2022 Invitae testing returned negative February 18, 2022 patient proceeded to right breast lumpectomy with sentinel lymph node biopsy. Final pathology confirmed invasive lobular carcinoma, grade 3, 5 cm in size with margins negative. Closest margin was 0.5 mm anteriorly. There was no LVSI identified. There was associated LCIS. ER/KY +2 sentinel nodes negative for tumor. pT2N0 repeat HER2 IHC was negative. February 2022 Oncotype score returned 18 with no chemotherapy recommended. May 20, 2022 patient completed whole breast radiation to a dose of 40.05 Shi in 15 fractions with a boost to the cavity of 10 Shi in 4 fractions. She tolerated her radiation therapy well. She was given anastrozole I Medical Oncology. Today patient is overall doing well and has recovered from her radiation. She has no new breast related complaints. Denies any side effects from her anastrozole. Physical exam: General: Alert and oriented, no acute distress. HEENT: Normocephalic, extraocular movements intact Chest: Normal work of breathing on room air Breast: Treated breast shoes expected post radiation change with residual tanning. No erythema no desquamation. No palpable mass or abnormality. Contralateral breast within normal limits. Abdomen: Nonacute MSK: Extremities within normal limits Dictated By: Kylee Lindsay MD DD/ Signed By: <Electronically signed by Kylee Lindsay MD> 06/18/22 0921 [facility] Work Phone: [phone]) 684-322411-16-2022 Progress note Author Lisa Hennessy [facility] June 11, 2022 9:37pm Note Date/Time June 11, 2022 1:19pm [facility] [place] [address] Hem/Onc Follow Up Note - OP Signed Patient: Denia Al MR#: [id number] : 1960 Acct:[id number] Age/Sex: 62 / F Type: REG RCR Copies to: MD Tone Kay DO Marc Naderer, MD~ Subjective Date/Time of Service: Date of Service: 06/11/2022 Time of Service: 13:18 Chief Complaint: Patient is here today for a 2 month follow up visit for right breast HPI: 06/11/2022: Denia completed radiation therapy 3 weeks ago with start of anastrozole therapy. She denies any significant hot flashes, arthralgias or myalgias. She has intermittent tenderness in radiation field but no breast or arm lymphedema. Baseline DEXA from 04/10/2022 showed normal bone density (T score -0.6) lumbar spine, osteopenia (T score -1.4 left femoral neck, T score -1.5 right femoral neck) bilateral hips. We are adding calcium with vitamin D and patient may check Vit D level with primary care. Continue anastrozole 1mg daily. OK for 3 month f/u with [facility] and 6 month f/u with me, sooner if new issuesarise. Moderate complexity 30 minute followup to review toxicities on aromataseinhibitor therapy. 04/02/2022: Denia is here to review results of Oncotype DX from her original lumpectomy specimen. She has not had any further issues with her seroma. I discussed in detail her recurrence score of 18 which corresponds to a 5% recurrence risk at 9 years and no benefit to chemotherapy with age greater than 50. We discussed typical approach after lumpectomy is to proceed to radiation therapy and she will have consult today. We discussed options for hormonal therapy including tamoxifen versus aromatase inhibitors. She still has intact uterus and there is increased risk of endometrial cancer and thrombosis with tamoxifen and therefore aromatase inhibitor is recommended. We discussed side effects of aromatase inhibitor such as hot flashes, lower bone density, and about 20% incidence of myalgias and arthralgias. She will have baseline DEXA scan and will commence anastrozole 1 mg daily following her radiation therapy. I will see her at the end of 4 weeks of anastrozole to review side effects and to determine if she may continue 5 to 7 years of adjuvant hormonal therapy. Allquestions answered to the patient and her over this 35- minute visit to review Oncotype findings, counseling for radiation and AI therapy. 03/14/2022: Denia completed right upper outer quadrant lumpectomy by Dr. Magana on and is here to review pathology results and recommendations for adjuvant therapy. She had to return to OR for evacuation ofa large hematoma in biopsy cavity on 03/05/2022 and continues followup with Dr. Magana. I reviewed pathology results showing Invasive Lobular Carcinoma, [place] histologic score 8/9 (score 3), size 50mm, margins negative for carcinoma, ER 95%, KY 95%, Her2 1+ by IHC, negative. 2 sentinel lymph nodes negative for involvement by tumor. pT2 pN0 Mx. Interestingly, original pathology was invasive ductal carcinoma (lumpectomy final pathology invasive lobular carcinoma). --No residual fullness or pain at surgical site. Discussed Oncotype Dx--will send pathology for testing and followup in 2 weeks. Moderate complexity 35 minute followup visit. 02/07/2022: Phone followup today to discuss [facility] tumor board discussion forplan with Dr. Magana for invasive ductal carcinoma of right breast. I contacted patient today after discussion in [facility] Tumor Board this am. Right axillary ultrasound was negative for adenopathy. Since HER2 is indeterminate and node negative, we recommended upfront lumpectomy. She will schedule with Dr. Magana and I will meet with her 2 weeks post operatively todiscuss pathology results and adjuvant therapy options. Moderate complexity phone followup. ---- Reason for Consultation: Palpable right breast mass--biopsy in December 2021 shows invasive ductal carcinoma (provisional grade 2) ER 95%, KY 95%, Her-2 equivocal IHC 1+ with equivocal FISH(HER2/CEP 17 1.4; Her2 copy number 4.0). Discussion of options for possible neoadjuvant therapy vs. upfront surgery. ORIGINAL CONSULT: 01/29/2022: This is a 61 year old female with minimal comorbidities who noted a fullness of right upper outer quadrant of breast--nontender, no skin erythema or dimpling, no nipple deviation or discharge, no obvious axillary fullness. She is , age 29 with first . Postmenopausal--no prior hysterectomy or oophorectomy, no history of hormone replacement therapy. + family history of a maternal aunt with breast cancer ( in 90s of natural causes). No family history of ovarian or other cancers. I reviewed her [facility] mammography 12/25/21 and ultrasound 01/01/2022 reports. Breast mass is about 3.6cm in greatest dimension on US (3.8 cm on mammogram). US guided breast biopsy on 01/01/2022 revealed invasive ductal carcinoma (provisional grade 2) ER 95%, KY 95%, Her-2 equivocal IHC 1+ with equivocal FISH (HER2/CEP 17 1.4; Her2 copy number 4.0). I discussed the case initially with Dr. Magana prior to referral and I discussed results above with the patient and her . Due to equivocal results of initial HER2 studies on breast biopsy, I recommended right axillary US with biopsy. If no enlarged axillary LN or axilla biopsy negative for cancer, she may proceed with upfront surgery. If biopsy is + for cancer, especially if Her2 positive, she should return to consent for neoadjuvant chemotherapy with TCHP. Following her US and biopsy within the next week, I will discuss her case at [facility] tumor board 02/03/2022 then coordinate phone followup to discuss multidisciplinary planof care. High complexity visit--60 min face to face, 30 min to review outside records and coordinate tumor board discussion of plan. DIAGNOSIS: New diagnosis right upper inner quadrant breast cancer 3.6cm primary by US (clinical T2 Nx Mx) --01/01/2022 biopsy: invasive ductal carcinoma (provisional grade 2) ER 95%, KY 95%, Her-2 equivocal IHC 1+ with equivocal FISH (HER2/CEP 17 1.4; Her2 copy number 4.0). --02/18/2022 lumpectomy with sentinel lymph node biopsy: Invasive Lobular Carcinoma, [place] histologic score 8/9 (score 3), size 50mm, margins negative for carcinoma, ER 95%, KY 95%, Her2 1+ by IHC, negative. 2 sentinel lymph nodes negative for involvement by tumor. pT2 pN0 Mx. - Summary of Therapies Summary of Therapies: 02/18/2022 Right breast lumpectomy with sentinel lymph node biopsy. 04/01/2022: Oncotype results 18 therefore no indication for adjuvant chemotherapy. 04/24-05/20/2022: Completed Adjuvant radiation 4,005 cGy left breast (15 fractions over 20 days) and 1,000 cGy boost to cavity (4 fractions over 5 days) 05/21/2022: subsequent anastrozole 1 mg daily to complete 5-year course. ROS Details: All systems reviewed & no additional complaints except as documented Subjective/ROS - Narrative: CONSTITUTIONAL: Negative for fatigue, negative for fever or night sweats. HEAD AND NECK: Negative for changes in hearing and vision. Negative for mouth ulcers, nasal congestion and nasal drainage. PULMONARY: Negative for chest pain, cough and dyspnea. CARDIOVASCULAR: Negative for claudication and irregular heartbeat/palpitations. GASTROINTESTINAL: Negative for abdominal pain, constipation, decreased appetite,diarrhea and vomiting. GENITOURINARY: Negative for dysuria and hematuria. ENDOCRINE: Negative for cold intolerance and heat intolerance--no hot flashes onanastrozole therapy. Right upper inner quadrant palpable mass since 10/2021, nowwell-healed since lumpectomy 02/18 then evacuation of hematoma 03/07/2022. CENTRAL NERVOUS SYSTEM: Negative for gait disturbance and headache. PSYCHIATRIC: Negative for anxiety or depression. DERMATOLOGICAL: Negative for pruritus and rash. Negative for suspicious skin lesions. No skin discoloration or dimpling over left breast. MUSCULOSKELETAL: Negative for back pain and bone/joint symptoms on anastrozole. HEMATOLOGICAL: Negative for bleeding and easy bruising. Negative for history of transfusion or thromboembolic disease ALLERGY: Negative for environmental allergies and food allergies. PMF - History Attestation statement: The following information was validated with the patient. Source: Old Records Reviewed - Medical History Medical History: Medical History (Last Reviewed 06/11/22 @ 21:23 by Lisa Hennessy MD) Breast cancer current rt Smoker - Surgical History Surgical History: Surgical History (Last Reviewed 06/11/22 @ 21:23 by Lisa Hennessy MD) H/O lumpectomy 01/2022 H/O splenectomy H/O tubal ligation History of lumpectomy of right breast -benign Hx of appendectomy Hx of tonsillectomy - Family History Family History: Family History (Last Reviewed 06/11/22 @ 21:23 by Lisa Hennessy MD) Father Liver cancer Diabetes Mother Hypertension Diabetes Heart disease Sister Diabetes - Social History Smoking Status: Former smoker Tobacco Type: cigarettes Substance Use Type: Alcohol Home Medications & Allergies Allergies penicillin G Adverse Reaction (Verified 06/11/22 13:12) convulsions Home Medications mometasone 0.1 % topical cream 1 applic topical DAILY #45 grams 04/10/22 [Rx Confirmed 06/11/22] anastrozole 1 mg tablet 1 mg PO DAILY 90 days #90 tabs 06/11/22 [Rx] calcium carbonate 500 mg-vitamin D3 10 mcg (400 unit) tablet (Calcium 500 + D) 2 tab PO DAILY 90 days #180 tabs 06/11/22 [Rx] Objective - Height/Weight Height/Weight: Height 5 ft 5 in Weight 75.7 kg - Vital Signs Vital Signs: 06/11/22 13:13 Temperature 97.8 F Pulse Rate [Left Brachial] 59 L Respiratory Rate 16 Blood Pressure [Left Arm] 160/91 H 02 Sat by Pulse Oximetry 98 Oxygen Delivery Method Room Air Physical Exam Narrative: CONSTITUTIONAL: The patient is in no acute distress. HEAD / FACE: Normocephalic. EYES: Pupils are equal and reactive to light. Conjunctivae and lids are benign in appearance. Ocular movement intact. EARS: Hearing grossly intact. Limited BREAST EXAM: Right breast well healed incision without mass right upperinner quadrant. No skin erythema or dimpling. No nipple discharge or deviation NOSE / MOUTH / THROAT: Nose, mouth, tongue and oropharynx are benign in appearance. No signs of inflammation. NECK / THYROID: Neck is supple. Thyroid is symmetrical, without thyromegaly, masses or palpable nodules. LYMPHATIC: No palpable cervical, supraclavicular, infraclavicular, or inguinal adenopathy. No left axillary adenopathy. Resolved fullness right axilla. RESPIRATORY: Normal to inspection. Lungs clear to auscultation and percussion. No wheezing, rales, rhonchi or rubs. Normal effort. CARDIOVASCULAR: Regular rate and rhythm. No murmurs, gallops, or rubs. VASCULAR: Carotid, radial, femoral and pedal pulses present bilaterally. No bruits. ABDOMEN: Bowel sounds normoactive. Soft, nontender and non-distended. No hepatosplenomegaly. No masses. GENITOURINARY: No CVA tenderness. No suprapubic fullness or tenderness. No groinadenopathy. INTEGUMENTARY: The skin is unremarkable. No rashes. No suspicious lesions BACK / SPINE: The back is nontender. MUSCULOSKELETAL: Normal musculature, no joint deformities or abnormalities, normal range of motion for all four extremities. EXTREMITIES: No edema, cyanosis or clubbing. No Merle sign. NEUROLOGICAL: Alert and oriented. Cranial nerves intact. No gross motor or sensory deficits. PSYCHIATRIC: No anxiety or evidence of depression. - ECOG Performance Status ECOG Score: 1 Results - Labs Labs: No new imaging for review. - Impressions DEXA from 04/10/2022 showed normal bone density (T score -0.6) lumbar spine, osteopenia (T score -1.4 left femoral neck, T score -1.5 right femoral neck) bilateral hips. Assessment and Plan - TNM Staging Staging: Right upper inner quadrant breast cancer 3.6cm primary by US (clinical T2 Nx Mx) --02/18/2022: Right lumpectomy/sentinel lymph node biopsy now Invasive Lobular Carcinoma, [place] histologic score 8/9 (score 3), size 50mm, margins negative for carcinoma, ER 95%, KY 95%, Her2 1+ by IHC, negative. 2 sentinel lymph nodes negative for involvement by tumor. pT2 pN0 Mx. (1) Malignant neoplasm of upper-inner quadrant of right breast in female, estrogen receptor positive This is a now 62 year old female with minimal comorbidities who noted a fullnessof right upper outer quadrant of breast in October 2021. Subsequent mammogram, US, and biopsy confirmed a 3.6cm invasive ductal carcinoma (provisional grade 2)ER 95%, KY 95%, Her-2 equivocal IHC 1+ with equivocal FISH (HER2/CEP 17 1.4; Her2 copy number 4.0). I discussed the case initially with Dr. Magana prior to referral and I discussed results above with the patient and her . Due to equivocal results of initial HER2 studies on breast biopsy, I recommended right axillary US with biopsy. If no enlarged axillary LN or axilla biopsy negative for cancer, she may proceed with upfront surgery. If biopsy is + for cancer, especially if Her2 positive, she should return to consent for neoadjuvant chemotherapy with TCHP. Following her US and biopsy within the next week, I will discuss her case at [facility] tumor board 02/03/2022 then coordinate phone followup to discuss multidisciplinary plan of care. High complexity visit--60 min face to face, 30 min to review outside records andcoordinate tumor board discussion of plan. 03/14/2022: Here for followup after right breast lumpectomy/sentinel lymph node on 02/18/2022. She had evacuation of post op hematoma on 03/07/2022. We reviewedpathology showing Invasive Lobular Carcinoma, [place] histologic score 8/9 (score 3), size 50mm, margins negative for carcinoma, ER 95%, KY 95%, [facility]. 2 sentinel lymph nodes negative for involvement by tumor. pT2 pN0 Mx. ----Today we discussed Oncotype Dx testing due to high grade ER+, KY+, Her2 negative cancer. She understands that if low risk, we would recommend referrralfor radiation therapy followed by hormonal therapy. If high risk recurrence score, we will discuss the benefit of adjuvant chemotherapy prior to radiation and hormonal therapy. She will return in 2 weeks to review Oncotype Dx results. 04/02/2022: Oncotype DX results reviewed. Recurrence score is 18 consistent witha 9-year recurrence rate of 5% if the patient is on appropriate hormonal therapyfollowing radiation. No benefit to chemotherapy. We discussed referral to radiation oncology and subsequent options for hormonal therapy. Since the patient still has uterus in place, aromatase inhibitor is favored over tamoxifen. We discussed side effects of aromatase inhibitors and patient will proceed with anastrozole 1 mg daily for 1 month trial following her radiation therapy. She will follow-up with me in about 8 to 10 weeks after completion of radiation therapy and 4 weeks of anastrozole for review of tolerance. Goal 5 to7 years of adjuvant aromatase inhibitor therapy. Moderate complexity followup 30 minutes to discuss Oncotype Dx results. 06/11/2022: Here for followup after radiation completed in late April 2022, then started anastrozole 1mg daily. Denies hot flashes, myalgias or arthralgiason anastrozole. We reviewed baseline DEXA scan with bilateral femoral neck osteopenia, normal lumbar spine T-score. We discussed continuing anastrozole for a total of 5-7 year course and adding calcium and vitamin D 2 tabs daily. Followup DEXA in 2 years (03/2024). Next f/u with [facility] as well as Dr. Magana for surveillance--moderate complexity 30 minute followup visit. (2) Osteopenia Qualifiers: Osteopenia location: femoral neck Laterality: bilateral Qualified Code(s): M85.851 - Other specified disorders of bone density and structure, right thigh; M85.852 - Other specified disorders of bone density and structure, left thigh Baseline DEXA scan prior to aromatase inhibitor therapy consistent with osteopenia bilateral femoral necks. We will treat with calcium and vitamin D supplementation 2 tabs daily. (3) Encounter for monitoring aromatase inhibitor therapy Assess tolerance of aromatase inhibitor and review of surveillance plan 30- minute [id number] visit. - Chemo Plan Chemo Plan (Dose, Rate, Freq): Anastrozole 1mg daily for 5-7 year course. Goal of Treatment: Curative - Time with Patient Time Spent with Patient (Follow Up Visit): 35 minutes - Review toxicities after radiation, tolerance of AI, review of baseline DEXA, surveillance frequency Coordination of Care & Counseling Time: Greater than 50% of time spent with patient was for coordination of care (as documented) and [id number] counseling of patient and/or family. Dictated By: Lisa Hennessy MD DD/ [id number] Signed By: <Electronically signed by MD Lisa Hennessy> 06/11/22 1087 [facility] Work Phone: [phone]) 660-807609-15-2022 Consult note Author Kylee [facility] April 10, 2022 1:34pm Note Date/Time April 10, 2022 10:31am [facility] [place] [address] Rad Onc Consult Note - OP Signed Patient: Denia Al MR#: [id number] : 1960 Acct:[id number] Age/Sex: 61 / F Type: REG RCR Copies to: MD Tone Kay DO Marc Naderer, MD~ Assessment & Plan (1) Malignant neoplasm of upper-inner quadrant of right breast in female, estrogen receptor positive Plan: CT simulation-planned for radiation to the right breast to a dose of 40.05 Shi in 15 fractions followed by a 10 Shi 4 fraction boost due to the grade 3 disease seen on final pathology. Assessment: 61-year-old female with pT2N0 invasive lobular carcinoma and invasive ductal carcinoma (biopsy) of the upper outer quadrant of the right breast, ER/KY positive HER2 negative. We reviewed her pathology in detail which shows a 5 cm primary tumor, grade 3, with negative sentinel lymph nodes 0/2 and clear margins. There was no LVSI. Patient is planned for endocrine therapy and I recommend postoperative radiation to the whole right breast to a dose of 40.05 Shi in 15 fractions. This would be followed by a 10 Shi 4 fraction boost due to the grade 3 disease seen on final pathology. I provided a general overview of radiation treatment planning and delivery. We discussed the need for immobilization and CT simulation. Short and long-term side effects were reviewed in detail and her questions were answered. She was consented to receive care. Patient was counseled at length regarding the risks of ongoing smoking as she already has early postsurgical fibrosis as well as some hyperpigmentation of the breast. She was encouraged to cut back on smokingas much as she could to minimize short and long-term toxicity. HPI Date of Service: 04/10/22 HPI: 61-year-old female who reported fullness of the right breast. There is no palpable mass no skin changes. December 25, 2021 diagnostic mammogram with US, showed a macro lobular mass at the 3 o'clock position 4.5 cm in diameter corresponding to the patient's palpable lump. Ultrasound showed macro lobular heterogeneous hypoechoic mass 3.8 cm. January 01, 2022 ultrasound-guided breast biopsy confirmed invasive ductal carcinoma, provisional grade 2, ER/KY positive with HER2 equivocal IHC 1+ with equivocal FISH. HER2 copy #4. Clinical stage T2 NX MX. February 07, 2022 right axillary ultrasound was negative for adenopathy. Since [id number] indeterminate node-negative she was recommended for upfront surgery. January 16, 2022 Invitae testing returned negative February 18, 2022 patient proceeded to right breast lumpectomy with sentinel lymph node biopsy. Final pathology confirmed invasive lobular carcinoma, grade 3, 5 cm in size with margins negative. Closest margin was 0.5 mm anteriorly. There was no LVSI identified. There was associated LCIS. ER/KY +2 sentinel nodes negative for tumor. pT2N0 repeat HER2 IHC was negative. February 2022 Oncotype score returned 18 with no chemotherapy recommended. Today patient is overall doing well and has recovered from her surgery. She hasno new breast related complaints. She is planned for endocrine therapy. [facility] - Medical History Medical History: Medical History (Last Reviewed 04/02/22 @ 10:37 by Lisa Hennessy MD) Breast cancer current rt Smoker - Surgical History Surgical History: Surgical History (Last Reviewed 04/02/22 @ 10:37 by Lisa Hennessy MD) H/O lumpectomy 01/2022 H/O splenectomy H/O tubal ligation History of lumpectomy of right breast -benign Hx of appendectomy Hx of tonsillectomy - Family History Family History: Family History (Last Reviewed 04/02/22 @ 10:37 by Lisa Hennessy MD) Father Liver cancer Diabetes Mother Hypertension Diabetes Heart disease Sister Diabetes - Social History Smoking Status: Current every day smoker Tobacco Type: cigarettes Substance Use Type: Alcohol Home Medications & Allergies Allergies penicillin G Adverse Reaction (Verified 04/02/22 08:43) convulsions Home Medications anastrozole 1 mg tablet 1 mg PO DAILY #30 tabs 04/02/22 [Rx] Subjective ROS: I reviewed the 12-point Review of Systems with the patient as per our standard questionnaire. Objective Height 5 ft 5 in Weight 74.389 kg Temp 97.0 F L 04/02/22 08:43 Pulse 66 04/02/22 08:43 Resp 16 04/02/22 08:43 BP 159/85 H 04/02/22 08:43 Pulse Ox 98 04/02/22 08:43 O2 Del Method Room Air 04/02/22 08:43 Pain: 0/10 Karnofsky Performance Scale: 90%: Can perform normal activity, minor signs of disease Physical Exam: Physical exam: General: Alert and oriented, no acute distress. HEENT: Normocephalic, extraocular movements intact Chest: Normal work of breathing on room air Breast: Right breast shows surgical incisions to be healing well with no concern for infection. There is postoperative fibrosis and mild retraction as well as hyperpigmentation of the breast. No palpable mass or abnormality. Contralateral breast within normal limits. Lymph: No palpable cervical, supraclavicular, axillary lymphadenopathy bilaterally. Abdomen: Nonacute MSK: Extremities within normal limits Dictated By: Kylee Lindsay MD DD/ [id number] Signed By: <Electronically signed by Kylee Lindsay MD> 04/10/22 133[address] [facility] Work Phone: [phone]) 470-804409-07-2022 Progress note Author Lisa Hennessy [facility] April 02, 2022 10:46am Note Date/Time April 02, 2022 8:53am [facility] [place] [address] Hem/Onc Follow Up Note - OP Signed Patient: Denia Al MR#: [id number] : 1960 Acct:[id number] Age/Sex: 61 / F Type: REG RCR Copies to: MD Tone Kay DO Marc Naderer, MD~ Subjective Date/Time of Service: Date of Service: 04/02/2022 Time of Service: 08:53 Chief Complaint: Patient is here today for a 2 week follow up visit for malignant neoplasm of upper inner quadrant of right breast. She is here today toreview her oncotype dx testing results. HPI: 04/02/2022: Denia is here to review results of Oncotype DX from her original lumpectomy specimen. She has not had any further issues with her seroma. I discussed in detail her recurrence score of 18 which corresponds to a 5% recurrence risk at 9 years and no benefit to chemotherapy with age greater than 50. We discussed typical approach after lumpectomy is to proceed to radiation therapy and she will have consult today. We discussed options for hormonal therapy including tamoxifen versus aromatase inhibitors. She still has intact uterus and there is increased risk of endometrial cancer and thrombosis with tamoxifen and therefore aromatase inhibitor is recommended. We discussed side effects of aromatase inhibitor such as hot flashes, lower bone density, and about 20% incidence of myalgias and arthralgias. She will have baseline DEXA scan and will commence anastrozole 1 mg daily following her radiation therapy. I will see her at the end of 4 weeks of anastrozole to review side effects and to determine if she may continue 5 to 7 years of adjuvant hormonal therapy. Allquestions answered to the patient and her over this 35- minute visit to review Oncotype findings, counseling for radiation and AI therapy. 03/14/2022: Denia completed right upper outer quadrant lumpectomy by Dr. Magana on and is here to review pathology results and recommendations for adjuvant therapy. She had to return to OR for evacuation of a large hematoma in biopsy cavity on 03/05/2022 and continues followup with Dr. Magana. I reviewed pathology results showing Invasive Lobular Carcinoma, [place] histologic score 8/9 (score 3), size 50mm, margins negative for carcinoma, ER 95%, KY 95%, Her2 1+ by IHC, negative. 2 sentinel lymph nodes negative for involvement by tumor. pT2 pN0 Mx. Interestingly, original pathology was invasive ductal carcinoma (lumpectomy final pathology invasive lobular carcinoma). --No residual fullness or pain at surgical site. Discussed Oncotype Dx--will send pathology for testing and followup in 2 weeks. Moderate complexity 35 minute followup visit. 02/07/2022: Phone followup today to discuss [facility] tumor board discussion forplan with Dr. Magana for invasive ductal carcinoma of right breast. I contacted patient today after discussion in [facility] Tumor Board this am. Right axillary ultrasound was negative for adenopathy. Since HER2 is indeterminate and node negative, we recommended upfront lumpectomy. She will schedule with Dr. Magana and I will meet with her 2 weeks post operatively todiscuss pathology results and adjuvant therapy options. Moderate complexity phone followup. ---- Reason for Consultation: Palpable right breast mass--biopsy in December 2021 shows invasive ductal carcinoma (provisional grade 2) ER 95%, KY 95%, Her-2 equivocal IHC 1+ with equivocal FISH(HER2/CEP 17 1.4; Her2 copy number 4.0). Discussion of options for possible neoadjuvant therapy vs. upfront surgery. ORIGINAL CONSULT: 01/29/2022: This is a 61 year old female with minimal comorbidities who noted a fullness of right upper outer quadrant of breast--nontender, no skin erythema or dimpling, no nipple deviation or discharge, no obvious axillary fullness. She is , age 29 with first . Postmenopausal--no prior hysterectomy or oophorectomy, no history of hormone replacement therapy. + family history of a maternal aunt with breast cancer ( in 90s of natural causes). No family history of ovarian or other cancers. I reviewed her [facility] mammography 12/25/21 and ultrasound 01/01/2022 reports. Breast mass is about 3.6cm in greatest dimension on US (3.8 cm on mammogram). US guided breast biopsy on 01/01/2022 revealed invasive ductal carcinoma (provisional grade 2) ER 95%, KY 95%, Her-2 equivocal IHC 1+ with equivocal FISH (HER2/CEP 17 1.4; Her2 copy number 4.0). I discussed the case initially with Dr. Magana prior to referral and I discussed results above with the patient and her . Due to equivocal results of initial HER2 studies on breast biopsy, I recommended right axillary US with biopsy. If no enlarged axillary LN or axilla biopsy negative for cancer, she may proceed with upfront surgery. If biopsy is + for cancer, especially if Her2 positive, she should return to consent for neoadjuvant chemotherapy with TCHP. Following her US and biopsy within the next week, I will discuss her case at [facility] tumor board 02/03/2022 then coordinate phone followup to discuss multidisciplinary planof care. High complexity visit--60 min face to face, 30 min to review outside records and coordinate tumor board discussion of plan. DIAGNOSIS: New diagnosis right upper inner quadrant breast cancer 3.6cm primary by US (clinical T2 Nx Mx) --01/01/2022 biopsy: invasive ductal carcinoma (provisional grade 2) ER 95%, KY 95%, Her-2 equivocal IHC 1+ with equivocal FISH (HER2/CEP 17 1.4; Her2 copy number 4.0). --02/18/2022 lumpectomy with sentinel lymph node biopsy: Invasive Lobular Carcinoma, [place] histologic score 8/9 (score 3), size 50mm, margins negative for carcinoma, ER 95%, KY 95%, Her2 1+ by IHC, negative. 2 sentinel lymph nodes negative for involvement by tumor. pT2 pN0 Mx. - Summary of Therapies Summary of Therapies: 02/18/2022 Right breast lumpectomy with sentinel lymph node biopsy. 03/14/2022: Discussion of Oncotype DX to determine whether to recommend adjuvantchemotherapy prior to radiation and hormonal therapy. 04/01/2022: Oncotype results 18 therefore no indication for adjuvant chemotherapy. Referred for radiation and subsequent anastrozole 1 mg daily to complete 5-yearcourse. ROS Details: All systems reviewed & no additional complaints except as documented Subjective/ROS - Narrative: No change in review of systems from last visit 3 weeks ago CONSTITUTIONAL: Negative for fatigue, negative for fever or night sweats. HEAD AND NECK: Negative for changes in hearing and vision. Negative for mouth ulcers, nasal congestion and nasal drainage. PULMONARY: Negative for chest pain, cough and dyspnea. CARDIOVASCULAR: Negative for claudication and irregular heartbeat/palpitations. GASTROINTESTINAL: Negative for abdominal pain, constipation, decreased appetite,diarrhea and vomiting. GENITOURINARY: Negative for dysuria and hematuria. ENDOCRINE: Negative for cold intolerance and heat intolerance. Right upper inner quadrant palpable mass since 10/2021, now well-healed since lumpectomy 02/18then evacuation of hematoma 03/07/2022 (no mass today). CENTRAL NERVOUS SYSTEM: Negative for gait disturbance and headache. PSYCHIATRIC: Negative for anxiety or depression. DERMATOLOGICAL: Negative for pruritus and rash. Negative for suspicious skin lesions. No skin discoloration or dimpling over breast mass. MUSCULOSKELETAL: Negative for back pain and bone/joint symptoms. HEMATOLOGICAL: Negative for bleeding and easy bruising. Negative for history of transfusion or thromboembolic disease ALLERGY: Negative for environmental allergies and food allergies. PMFSH - History Attestation statement: The following information was validated with the patient. Source: Old Records Reviewed - Medical History Medical History: Medical History (Last Reviewed 04/02/22 @ 10:37 by Lisa Hennessy MD) Breast cancer current rt Smoker - Surgical History Surgical History: Surgical History (Last Reviewed 04/02/22 @ 10:37 by Lisa Hennessy MD) H/O lumpectomy 01/2022 H/O splenectomy H/O tubal ligation History of lumpectomy of right breast -benign Hx of appendectomy Hx of tonsillectomy - Family History Family History: Family History (Last Reviewed 04/02/22 @ 10:37 by Lisa Hennessy MD) Father Liver cancer Diabetes Mother Hypertension Diabetes Heart disease Sister Diabetes - Social History Smoking Status: Current every day smoker Tobacco Type: cigarettes Substance Use Type: Alcohol Home Medications & Allergies Allergies penicillin G Adverse Reaction (Verified 04/02/22 08:43) convulsions Home Medications anastrozole 1 mg tablet 1 mg PO DAILY #30 tabs 04/02/22 [Rx] Objective - Height/Weight Height/Weight: Height 5 ft 5 in Weight 74.389 kg - Vital Signs Vital Signs: 04/02/22 08:43 Temperature 97.0 F L Pulse Rate [Left Brachial] 66 Respiratory Rate 16 Blood Pressure [Left Arm] 159/85 H 02 Sat by Pulse Oximetry 98 Oxygen Delivery Method Room Air Physical Exam Narrative: CONSTITUTIONAL: The patient is in no acute distress. HEAD / FACE: Normocephalic. EYES: Pupils are equal and reactive to light. Conjunctivae and lids are benign in appearance. Ocular movement intact. EARS: Hearing grossly intact. Physical exam deferred, here for discussion of Oncotype DX findings and further therapy. Limited BREAST EXAM: Right breast well healed incision without mass right upperinner quadrant. No skin erythema or dimpling. No nipple discharge or deviation NOSE / MOUTH / THROAT: Nose, mouth, tongue and oropharynx are benign in appearance. No signs of inflammation. NECK / THYROID: Neck is supple. Thyroid is symmetrical, without thyromegaly, masses or palpable nodules. LYMPHATIC: No palpable cervical, supraclavicular, infraclavicular, or inguinal adenopathy. No left axillary adenopathy. Ill defined fullness right axilla, indeterminate for adenopathy. RESPIRATORY: Normal to inspection. Lungs clear to auscultation and percussion. No wheezing, rales, rhonchi or rubs. Normal effort. CARDIOVASCULAR: Regular rate and rhythm. No murmurs, gallops, or rubs. VASCULAR: Carotid, radial, femoral and pedal pulses present bilaterally. No bruits. ABDOMEN: Bowel sounds normoactive. Soft, nontender and non-distended. No hepatosplenomegaly. No masses. GENITOURINARY: No CVA tenderness. No suprapubic fullness or tenderness. No groinadenopathy. No evidence of hernias. INTEGUMENTARY: The skin is unremarkable. No rashes. No suspicious lesions BACK / SPINE: The back is nontender. MUSCULOSKELETAL: Normal musculature, no joint deformities or abnormalities, normal range of motion for all four extremities. EXTREMITIES: No edema, cyanosis or clubbing. No Merle sign. NEUROLOGICAL: Alert and oriented. Cranial nerves intact. No gross motor or sensory deficits. PSYCHIATRIC: No anxiety or evidence of depression. - ECOG Performance Status ECOG Score: 0 Results - Labs Labs: No new labs for review. - Impressions Baseline DEXA scan ordered prior to starting aromatase inhibitor therapy. Assessment and Plan - TNM Staging Staging: Right upper inner quadrant breast cancer 3.6cm primary by US (clinical T2 Nx Mx) --02/18/2022: Right lumpectomy/sentinel lymph node biopsy now Invasive Lobular Carcinoma, [place] histologic score 8/9 (score 3), size 50mm, margins negative for carcinoma, ER 95%, KY 95%, Her2 1+ by IHC, negative. 2 sentinel lymph nodes negative for involvement by tumor. pT2 pN0 Mx. (1) Malignant neoplasm of upper-inner quadrant of right breast in female, estrogen receptor positive This is a 61 year old female with minimal comorbidities who noted a fullness of right upper outer quadrant of breast in October 2021. Subsequent mammogram, US, and biopsy confirmed a 3.6cm invasive ductal carcinoma (provisional grade 2) ER 95%, KY 95%, Her-2 equivocal IHC 1+ with equivocal FISH (HER2/CEP 17 1.4; Her2 copy number 4.0). I discussed the case initially with Dr. Magana prior to referral and I discussed results above with the patient and her . Due to equivocal results of initial HER2 studies on breast biopsy, I recommended right axillary US with biopsy. If no enlarged axillary LN or axilla biopsy negative for cancer, she may proceed with upfront surgery. If biopsy is + for cancer, especially if Her2 positive, she should return to consent for neoadjuvant chemotherapy with TCHP. Following her US and biopsy within the next week, I will discuss her case at [facility] tumor board 02/03/2022 then coordinate phone followup to discuss multidisciplinary plan of care. High complexity visit--60 min face to face, 30 min to review outside records andcoordinate tumor board discussion of plan. 03/14/2022: Here for followup after right breast lumpectomy/sentinel lymph node on 02/18/2022. She had evacuation of post op hematoma on 03/07/2022. We reviewedpathology showing Invasive Lobular Carcinoma, Lynda histologic score 8/9 (score 3), size 50mm, margins negative for carcinoma, ER 95%, KY 95%, Her2 1+ byIHC, negative. 2 sentinel lymph nodes negative for involvement by tumor. pT2 pN0 Mx. ----Today we discussed Oncotype Dx testing due to high grade ER+, KY+, Her2 negative cancer. She understands that if low risk, we would recommend referrralfor radiation therapy followed by hormonal therapy. If high risk recurrence score, we will discuss the benefit of adjuvant chemotherapy prior to radiation and hormonal therapy. She will return in 2 weeks to review Oncotype Dx results. 04/02/2022 Oncotype DX results reviewed. Recurrence score is 18 consistent with a 9-year recurrence rate of 5% if the patient is on appropriate hormonal therapy following radiation. No benefit to chemotherapy. We discussed referral to radiation oncology and subsequent options for hormonal therapy. Since the patient still has uterus in place, aromatase inhibitor is favored over tamoxifen. We discussed side effects of aromatase inhibitors and patient will proceed with anastrozole 1 mg daily for 1 month trial following her radiation therapy. She will follow-up with me in about 8 to 10 weeks after completion of radiation therapy and 4 weeks of anastrozole for review of tolerance. Goal 5 to7 years of adjuvant aromatase inhibitor therapy. Moderate complexity followup 30 minutes to discuss Oncotype Dx results. (2) Screening for osteoporosis Baseline DEXA scan prior to aromatase inhibitor therapy. Patient has never had prior DEXA scan. We will treat with calcium and vitamin D supplementation. (3) Encounter for monitoring aromatase inhibitor therapy Initial counseling aromatase inhibitor and review of adjuvant therapy options 30-minute [id number] visit. - Chemo Plan Chemo Plan (Dose, Rate, Freq): Oncotype Dx testing to determine plan for adjuvant therapy. Goal of Treatment: Curative - Time with Patient Time Spent with Patient (Follow Up Visit): 35 minutes Coordination of Care & Counseling Time: Greater than 50% of time spent with patient was for coordination of care (as documented) and [id number] counseling of patient and/or family. Dictated By: Lisa Hennessy MD DD/ [id number] Signed By: <Electronically signed by MD Lisa Hennessy> 04/02/22 10[address] [facility] Work Phone: 1(297) 783-247408-21-2022 Progress note Author Lisa Hennessy [facility] March 16, 2022 2:02pm Note Date/Time March 15, 2022 9: 18pm [facility] at [address] [address] Hem/Onc Follow Up Note - OP Signed Patient: Denia Al MR#: [id number] : 1960 Acct:[id number] Age/Sex: 61 / F Type: REG RCR Copies to: DO Howard Flores MD~ Subjective Date/Time of Service: Date of Service: 03/14/2022 Time of Service: 13:15 Chief Complaint: Patient is here today for a follow up visit for her pathology results d/t having right breast lumpectomy HPI: 03/14/2022: Denia completed right upper outer quadrant lumpectomy by Dr. Magana on and is here to review pathology results and recommendations for adjuvant therapy. She had to return to OR for evacuation ofa large hematoma in biopsy cavity on 03/05/2022 and continues followup with Dr. Magana. I reviewed pathology results showing Invasive Lobular Carcinoma, [place] histologic score 8/9 (score 3), size 50mm, margins negative for carcinoma, ER 95%, KY 95%, Her2 1+ by IHC, negative. 2 sentinel lymph nodes negative for involvement by tumor. pT2 pN0 Mx. Interestingly, original pathology was invasive ductal carcinoma (lumpectomy final pathology invasive lobular carcinoma). --No residual fullness or pain at surgical site. Discussed Oncotype Dx--will send pathology for testing and followup in 2 weeks. Moderate complexity 35 minute followup visit. 02/07/2022: Phone followup today to discuss [facility] tumor board discussion forplan with Dr. Magana for invasive ductal carcinoma of right breast. I contacted patient today after discussion in [facility] Tumor Board this am. Right axillary ultrasound was negative for adenopathy. Since HER2 is indeterminate and node negative, we recommended upfront lumpectomy. She will schedule with Dr. Magana and I will meet with her 2 weeks post operatively todiscuss pathology results and adjuvant therapy options. Moderate complexity phone followup. ---- Reason for Consultation: Palpable right breast mass--biopsy in December 2021 shows invasive ductal carcinoma (provisional grade 2) ER 95%, KY 95%, Her-2 equivocal IHC 1+ with equivocal FISH(HER2/CEP 17 1.4; Her2 copy number 4.0). Discussion of options for possible neoadjuvant therapy vs. upfront surgery. ORIGINAL CONSULT: 01/29/2022: This is a 61 year old female with minimal comorbidities who noted a fullness of right upper outer quadrant of breast--nontender, no skin erythema or dimpling, no nipple deviation or discharge, no obvious axillary fullness. She is , age 29 with first . Postmenopausal--no prior hysterectomy or oophorectomy, no history of hormone replacement therapy. + family history of a maternal aunt with breast cancer ( in s of natural causes). No family history of ovarian or other cancers. I reviewed her [facility] mammography 12/25/21 and ultrasound 01/01/2022 reports. Breast mass is about 3.6cm in greatest dimension on US (3.8 cm on mammogram). US guided breast biopsy on 01/01/2022 revealed invasive ductal carcinoma (provisional grade 2) ER 95%, KY 95%, Her-2 equivocal IHC 1+ with equivocal FISH (HER2/CEP 17 1.4; Her2 copy number 4.0). I discussed the case initially with Dr. Magana prior to referral and I discussed results above with the patient and her . Due to equivocal results of initial HER2 studies on breast biopsy, I recommended right axillary US with biopsy. If no enlarged axillary LN or axilla biopsy negative for cancer, she may proceed with upfront surgery. If biopsy is + for cancer, especially if Her2 positive, she should return to consent for neoadjuvant chemotherapy with TCHP. Following her US and biopsy within the next week, I will discuss her case at [facility] tumor board 02/03/2022 then coordinate phone followup to discuss multidisciplinary planof care. High complexity visit--60 min face to face, 30 min to review outside records and coordinate tumor board discussion of plan. DIAGNOSIS: New diagnosis right upper inner quadrant breast cancer 3.6cm primary by US (clinical T2 Nx Mx) --01/01/2022 biopsy: invasive ductal carcinoma (provisional grade 2) ER 95%, KY 95%, Her-2 equivocal IHC 1+ with equivocal FISH (HER2/CEP 17 1.4; Her2 copy number 4.0). --02/18/2022 lumpectomy with sentinel lymph node biopsy: Invasive Lobular Carcinoma, [place] histologic score 8/9 (score 3), size 50mm, margins negative for carcinoma, ER 95%, KY 95%, Her2 1+ by IHC, negative. 2 sentinel lymph nodes negative for involvement by tumor. pT2 pN0 Mx. - Summary of Therapies Summary of Therapies: 02/18/2022 Right breast lumpectomy with sentinel lymph node biopsy. 03/14/2022: Discussion of Oncotype DX to determine whether to recommend adjuvantchemotherapy prior to radiation and hormonal therapy. ROS Details: All systems reviewed & no additional complaints except as documented Subjective/ROS - Narrative: CONSTITUTIONAL: Negative for fatigue, negative for fever or night sweats. HEAD AND NECK: Negative for changes in hearing and vision. Negative for mouth ulcers, nasal congestion and nasal drainage. PULMONARY: Negative for chest pain, cough and dyspnea. CARDIOVASCULAR: Negative for claudication and irregular heartbeat/palpitations. GASTROINTESTINAL: Negative for abdominal pain, constipation, decreased appetite,diarrhea and vomiting. GENITOURINARY: Negative for dysuria and hematuria. ENDOCRINE: Negative for cold intolerance and heat intolerance. Right upper inner quadrant palpable mass since 10/2021, now well-healed since lumpectomy 02/18then evacuation of hematoma 03/07/2022 (no mass today). CENTRAL NERVOUS SYSTEM: Negative for gait disturbance and headache. PSYCHIATRIC: Negative for anxiety or depression. DERMATOLOGICAL: Negative for pruritus and rash. Negative for suspicious skin lesions. No skin discoloration or dimpling over breast mass. MUSCULOSKELETAL: Negative for back pain and bone/joint symptoms. HEMATOLOGICAL: Negative for bleeding and easy bruising. Negative for history of transfusion or thromboembolic disease ALLERGY: Negative for environmental allergies and food allergies. PMFSH - History Attestation statement: The following information was validated with the patient. Source: Old Records Reviewed - Medical History Medical History: Medical History (Last Reviewed 03/16/22 @ 13:49 by Lisa Hennessy MD) Breast cancer current rt Smoker - Surgical History Surgical History: Surgical History (Last Reviewed 03/16/22 @ 13:49 by Lisa Hennessy MD) H/O lumpectomy 01/2022 H/O splenectomy H/O tubal ligation History of lumpectomy of right breast -benign Hx of appendectomy Hx of tonsillectomy - Family History Family History: Family History (Last Reviewed 03/16/22 @ 13:49 by Lisa Hennessy MD) Father Liver cancer Diabetes Mother Hypertension Diabetes Heart disease Sister Diabetes - Social History Smoking Status: Current every day smoker Tobacco Type: cigarettes Substance Use Type: Alcohol Home Medications & Allergies Allergies penicillin G Adverse Reaction (Verified 03/14/22 13:11) convulsions Home Medications No known home meds 03/14/22 [History Confirmed 03/14/22] Objective - Height/Weight Height/Weight: Height 5 ft 5 in Weight 74.843 kg - Vital Signs Vital Signs: Reviewed--elevated BP, normal HR Physical Exam Narrative: CONSTITUTIONAL: The patient is in no acute distress. HEAD / FACE: Normocephalic. EYES: Pupils are equal and reactive to light. Conjunctivae and lids are benign in appearance. Ocular movement intact. EARS: Hearing grossly intact. Limited BREAST EXAM: Right breast well healed incision without mass right upperinner quadrant. No skin erythema or dimpling. No nipple discharge or deviation NOSE / MOUTH / THROAT: Nose, mouth, tongue and oropharynx are benign in appearance. No signs of inflammation. NECK / THYROID: Neck is supple. Thyroid is symmetrical, without thyromegaly, masses or palpable nodules. LYMPHATIC: No palpable cervical, supraclavicular, infraclavicular, or inguinal adenopathy. No left axillary adenopathy. Ill defined fullness right axilla, indeterminate for adenopathy. RESPIRATORY: Normal to inspection. Lungs clear to auscultation and percussion. No wheezing, rales, rhonchi or rubs. Normal effort. CARDIOVASCULAR: Regular rate and rhythm. No murmurs, gallops, or rubs. VASCULAR: Carotid, radial, femoral and pedal pulses present bilaterally. No bruits. ABDOMEN: Bowel sounds normoactive. Soft, nontender and non-distended. No hepatosplenomegaly. No masses. GENITOURINARY: No CVA tenderness. No suprapubic fullness or tenderness. No groinadenopathy. No evidence of hernias. INTEGUMENTARY: The skin is unremarkable. No rashes. No suspicious lesions BACK / SPINE: The back is nontender. MUSCULOSKELETAL: Normal musculature, no joint deformities or abnormalities, normal range of motion for all four extremities. EXTREMITIES: No edema, cyanosis or clubbing. No Merle sign. NEUROLOGICAL: Alert and oriented. Cranial nerves intact. No gross motor or sensory deficits. PSYCHIATRIC: No anxiety or evidence of depression. - ECOG Performance Status ECOG Score: 1 Results - Labs Labs: No new labs for review - Impressions No new imaging for review. Assessment and Plan - TNM Staging Staging: Right upper inner quadrant breast cancer 3.6cm primary by US (clinical T2 Nx Mx) --02/18/2022: Right lumpectomy/sentinel lymph node biopsy now Invasive Lobular Carcinoma, [place] histologic score 8/9 (score 3), size 50mm, margins negative for carcinoma, ER 95%, [place] 95%, Her2 1+ by IHC, negative. 2 sentinel lymph nodes negative for involvement by tumor. pT2 pN0 Mx. (1) Malignant neoplasm of upper-inner quadrant of right breast in female, estrogen receptor positive This is a 61 year old female with minimal comorbidities who noted a fullness of right upper outer quadrant of breast in October 2021. Subsequent mammogram, US, and biopsy confirmed a 3.6cm invasive ductal carcinoma (provisional grade 2) ER 95%, KY 95%, Her-2 equivocal IHC 1+ with equivocal FISH (HER2/CEP 17 1.4; Her2 copy number 4.0). I discussed the case initially with Dr. Magana prior to referral and I discussed results above with the patient and her . Due to equivocal results of initial HER2 studies on breast biopsy, I recommended right axillary US with biopsy. If no enlarged axillary LN or axilla biopsy negative for cancer, she may proceed with upfront surgery. If biopsy is + for cancer, especially if Her2 positive, she should return to consent for neoadjuvant chemotherapy with TCHP. Following her US and biopsy within the next week, I will discuss her case at [facility] tumor board 02/03/2022 then coordinate phone followup to discuss multidisciplinary plan of care. High complexity visit--60 min face to face, 30 min to review outside records andcoordinate tumor board discussion of plan. 03/14/2022: Here for followup after right breast lumpectomy/sentinel lymph node on 02/18/2022. She had evacuation of post op hematoma on 03/07/2022. We reviewedpathology showing Invasive Lobular Carcinoma, [place] histologic score 8/9 (score 3), size 50mm, margins negative for carcinoma, ER 95%, KY 95%, Her2 1+ byC, negative. 2 sentinel lymph nodes negative for involvement by tumor. pT2 pN0 Mx. ----Today we discussed Oncotype Dx testing due to high grade ER+, KY+, Her2 negative cancer. She understands that if low risk, we would recommend referrralfor radiation therapy followed by hormonal therapy. If high risk recurrence score, we will discuss the benefit of adjuvant chemotherapy prior to radiation and hormonal therapy. She will return in 2 weeks to review Oncotype Dx results. Moderate complexity followup 35 minutes to discuss pathology results. - Chemo Plan Chemo Plan (Dose, Rate, Freq): Oncotype Dx testing to determine plan for adjuvant therapy. Goal of Treatment: Curative - Time with Patient Time Spent with Patient (Follow Up Visit): 35 minutes Coordination of Care & Counseling Time: Greater than 50% of time spent with patient was for coordination of care (as documented) and [id number] counseling of patient and/or family. Dictated By: Lisa Hennessy MD DD/ 16 Signed By: <Electronically signed by MD Lisa Hennessy> 03/16/22 1409 [facility] Work Phone: [phone]) 604-904908-21-2022 Progress note Author Lisa Hennessy [facility] March 16, 2022 2:02pm Note Date/Time March 15, 2022 9: 18pm [facility] [place] [address] Hem/Onc Follow Up Note - OP Signed Patient: Denia Al MR#: [id number] : 1960 Acct:[id number] Age/Sex: 61 / F Type: REG RCR Copies to: DO Howard Flores MD~ Subjective Date/Time of Service: Date of Service: 03/14/2022 Time of Service: 13:15 Chief Complaint: Patient is here today for a follow up visit for her pathology results d/t having right breast lumpectomy HPI: 03/14/2022: Denia completed right upper outer quadrant lumpectomy by Dr. Magana on and is here to review pathology results and recommendations for adjuvant therapy. She had to return to OR for evacuation ofa large hematoma in biopsy cavity on 03/05/2022 and continues followup with Dr. Magana. I reviewed pathology results showing Invasive Lobular Carcinoma, [place] histologic score 8/9 (score 3), size 50mm, margins negative for carcinoma, ER 95%, [place] 95%, Her2 1+ by IHC, negative. 2 sentinel lymph nodes negative for involvement by tumor. pT2 pN0 Mx. Interestingly, original pathology was invasive ductal carcinoma (lumpectomy final pathology invasive lobular carcinoma). --No residual fullness or pain at surgical site. Discussed Oncotype Dx--will send pathology for testing and followup in 2 weeks. Moderate complexity 35 minute followup visit. 02/07/2022: Phone followup today to discuss [facility] tumor board discussion forplan with Dr. Magana for invasive ductal carcinoma of right breast. I contacted patient today after discussion in [facility] Tumor Board this am. Right axillary ultrasound was negative for adenopathy. Since HER2 is indeterminate and node negative, we recommended upfront lumpectomy. She will schedule with Dr. Magana and I will meet with her 2 weeks post operatively todiscuss pathology results and adjuvant therapy options. Moderate complexity phone followup. ---- Reason for Consultation: Palpable right breast mass--biopsy in December 2021 shows invasive ductal carcinoma (provisional grade 2) ER 95%, [place] 95%, Her-2 equivocal IHC 1+ with equivocal FISH(HER2/CEP 17 1.4; Her2 copy number 4.0). Discussion of options for possible neoadjuvant therapy vs. upfront surgery. ORIGINAL CONSULT: 01/29/2022: This is a 61 year old female with minimal comorbidities who noted a fullness of right upper outer quadrant of breast--nontender, no skin erythema or dimpling, no nipple deviation or discharge, no obvious axillary fullness. She is , age 29 with first . Postmenopausal--no prior hysterectomy or oophorectomy, no history of hormone replacement therapy. + family history of a maternal aunt with breast cancer ( in 90s of natural causes). No family history of ovarian or other cancers. I reviewed her [facility] mammography 12/25/21 and ultrasound 01/01/2022 reports. Breast mass is about 3.6cm in greatest dimension on US (3.8 cm on mammogram). US guided breast biopsy on 01/01/2022 revealed invasive ductal carcinoma (provisional grade 2) ER 95%, [place] 95%, Her-2 equivocal IHC 1+ with equivocal FISH (HER2/CEP 17 1.4; Her2 copy number 4.0). I discussed the case initially with Dr. Magana prior to referral and I discussed results above with the patient and her . Due to equivocal results of initial HER2 studies on breast biopsy, I recommended right axillary US with biopsy. If no enlarged axillary LN or axilla biopsy negative for cancer, she may proceed with upfront surgery. If biopsy is + for cancer, especially if Her2 positive, she should return to consent for neoadjuvant chemotherapy with TCHP. Following her US and biopsy within the next week, I will discuss her case at [facility] tumor board 02/03/2022 then coordinate phone followup to discuss multidisciplinary planof care. High complexity visit--60 min face to face, 30 min to review outside records and coordinate tumor board discussion of plan. DIAGNOSIS: New diagnosis right upper inner quadrant breast cancer 3.6cm primary by US (clinical T2 Nx Mx) --01/01/2022 biopsy: invasive ductal carcinoma (provisional grade 2) ER 95%, KY 95%, Her-2 equivocal IHC 1+ with equivocal FISH (HER2/CEP 17 1.4; Her2 copy number 4.0). --02/18/2022 lumpectomy with sentinel lymph node biopsy: Invasive Lobular Carcinoma, [place] histologic score 8/9 (score 3), size 50mm, margins negative for carcinoma, ER 95%, KY 95%, Her2 1+ by IHC, negative. 2 sentinel lymph nodes negative for involvement by tumor. pT2 pN0 Mx. - Summary of Therapies Summary of Therapies: 02/18/2022 Right breast lumpectomy with sentinel lymph node biopsy. 03/14/2022: Discussion of Oncotype DX to determine whether to recommend adjuvantchemotherapy prior to radiation and hormonal therapy. ROS Details: All systems reviewed & no additional complaints except as documented Subjective/ROS - Narrative: CONSTITUTIONAL: Negative for fatigue, negative for fever or night sweats. HEAD AND NECK: Negative for changes in hearing and vision. Negative for mouth ulcers, nasal congestion and nasal drainage. PULMONARY: Negative for chest pain, cough and dyspnea. CARDIOVASCULAR: Negative for claudication and irregular heartbeat/palpitations. GASTROINTESTINAL: Negative for abdominal pain, constipation, decreased appetite,diarrhea and vomiting. GENITOURINARY: Negative for dysuria and hematuria. ENDOCRINE: Negative for cold intolerance and heat intolerance. Right upper inner quadrant palpable mass since 10/2021, now well-healed since lumpectomy 02/18then evacuation of hematoma 03/07/2022 (no mass today). CENTRAL NERVOUS SYSTEM: Negative for gait disturbance and headache. PSYCHIATRIC: Negative for anxiety or depression. DERMATOLOGICAL: Negative for pruritus and rash. Negative for suspicious skin lesions. No skin discoloration or dimpling over breast mass. MUSCULOSKELETAL: Negative for back pain and bone/joint symptoms. HEMATOLOGICAL: Negative for bleeding and easy bruising. Negative for history of transfusion or thromboembolic disease ALLERGY: Negative for environmental allergies and food allergies. PMFSH - History Attestation statement: The following information was validated with the patient. Source: Old Records Reviewed - Medical History Medical History: Medical History (Last Reviewed 03/16/22 @ 13:49 by Lisa Hennessy MD) Breast cancer current rt Smoker - Surgical History Surgical History: Surgical History (Last Reviewed 03/16/22 @ 13:49 by Lisa Hennessy MD) H/O lumpectomy 01/2022 H/O splenectomy H/O tubal ligation History of lumpectomy of right breast -benign Hx of appendectomy Hx of tonsillectomy - Family History Family History: Family History (Last Reviewed 03/16/22 @ 13:49 by Lisa Hennessy MD) Father Liver cancer Diabetes Mother Hypertension Diabetes Heart disease Sister Diabetes - Social History Smoking Status: Current every day smoker Tobacco Type: cigarettes Substance Use Type: Alcohol Home Medications & Allergies Allergies penicillin G Adverse Reaction (Verified 03/14/22 13:11) convulsions Home Medications No known home meds 03/14/22 [History Confirmed 03/14/22] Objective - Height/Weight Height/Weight: Height 5 ft 5 in Weight 74.843 kg - Vital Signs Vital Signs: Reviewed--elevated BP, normal HR Physical Exam Narrative: CONSTITUTIONAL: The patient is in no acute distress. HEAD / FACE: Normocephalic. EYES: Pupils are equal and reactive to light. Conjunctivae and lids are benign in appearance. Ocular movement intact. EARS: Hearing grossly intact. Limited BREAST EXAM: Right breast well healed incision without mass right upperinner quadrant. No skin erythema or dimpling. No nipple discharge or deviation NOSE / MOUTH / THROAT: Nose, mouth, tongue and oropharynx are benign in appearance. No signs of inflammation. NECK / THYROID: Neck is supple. Thyroid is symmetrical, without thyromegaly, masses or palpable nodules. LYMPHATIC: No palpable cervical, supraclavicular, infraclavicular, or inguinal adenopathy. No left axillary adenopathy. Ill defined fullness right axilla, indeterminate for adenopathy. RESPIRATORY: Normal to inspection. Lungs clear to auscultation and percussion. No wheezing, rales, rhonchi or rubs. Normal effort. CARDIOVASCULAR: Regular rate and rhythm. No murmurs, gallops, or rubs. VASCULAR: Carotid, radial, femoral and pedal pulses present bilaterally. No bruits. ABDOMEN: Bowel sounds normoactive. Soft, nontender and non-distended. No hepatosplenomegaly. No masses. GENITOURINARY: No CVA tenderness. No suprapubic fullness or tenderness. No groinadenopathy. No evidence of hernias. INTEGUMENTARY: The skin is unremarkable. No rashes. No suspicious lesions BACK / SPINE: The back is nontender. MUSCULOSKELETAL: Normal musculature, no joint deformities or abnormalities, normal range of motion for all four extremities. EXTREMITIES: No edema, cyanosis or clubbing. No Merle sign. NEUROLOGICAL: Alert and oriented. Cranial nerves intact. No gross motor or sensory deficits. PSYCHIATRIC: No anxiety or evidence of depression. - ECOG Performance Status ECOG Score: 1 Results - Labs Labs: No new labs for review - Impressions No new imaging for review. Assessment and Plan - TNM Staging Staging: Right upper inner quadrant breast cancer 3.6cm primary by US (clinical T2 Nx Mx) --02/18/2022: Right lumpectomy/sentinel lymph node biopsy now Invasive Lobular Carcinoma, [place] histologic score 8/9 (score 3), size 50mm, margins negative for carcinoma, ER 95%, KY 95%, Her2 1+ by IHC, negative. 2 sentinel lymph nodes negative for involvement by tumor. pT2 pN0 Mx. (1) Malignant neoplasm of upper-inner quadrant of right breast in female, estrogen receptor positive This is a 61 year old female with minimal comorbidities who noted a fullness of right upper outer quadrant of breast in October 2021. Subsequent mammogram, US, and biopsy confirmed a 3.6cm invasive ductal carcinoma (provisional grade 2) ER 95%, KY 95%, Her-2 equivocal IHC 1+ with equivocal FISH (HER2/CEP 17 1.4; Her2 copy number 4.0). I discussed the case initially with Dr. Magana prior to referral and I discussed results above with the patient and her . Due to equivocal results of initial HER2 studies on breast biopsy, I recommended right axillary US with biopsy. If no enlarged axillary LN or axilla biopsy negative for cancer, she may proceed with upfront surgery. If biopsy is + for cancer, especially if Her2 positive, she should return to consent for neoadjuvant chemotherapy with TCHP. Following her US and biopsy within the next week, I will discuss her case at [facility] tumor board 02/03/2022 then coordinate phone followup to discuss multidisciplinary plan of care. High complexity visit--60 min face to face, 30 min to review outside records andcoordinate tumor board discussion of plan. 03/14/2022: Here for followup after right breast lumpectomy/sentinel lymph node on 02/18/2022. She had evacuation of post op hematoma on 03/07/2022. We reviewedpathology showing Invasive Lobular Carcinoma, [place] histologic score 8/9 (score 3), size 50mm, margins negative for carcinoma, ER 95%, KY 95%, Her2 1+ byIHC, negative. 2 sentinel lymph nodes negative for involvement by tumor. pT2 pN0 Mx. ----Today we discussed Oncotype Dx testing due to high grade ER+, KY+, Her2 negative cancer. She understands that if low risk, we would recommend referrralfor radiation therapy followed by hormonal therapy. If high risk recurrence score, we will discuss the benefit of adjuvant chemotherapy prior to radiation and hormonal therapy. She will return in 2 weeks to review Oncotype Dx results. Moderate complexity followup 35 minutes to discuss pathology results. - Chemo Plan Chemo Plan (Dose, Rate, Freq): Oncotype Dx testing to determine plan for adjuvant therapy. Goal of Treatment: Curative - Time with Patient Time Spent with Patient (Follow Up Visit): 35 minutes Coordination of Care & Counseling Time: Greater than 50% of time spent with patient was for coordination of care (as documented) and [id number] counseling of patient and/or family. Dictated By: Lisa Hennessy MD DD/ 16 Signed By: <Electronically signed by MD Lisa Hennessy> 03/16/22 1402 [facility] Work Phone: [phone]) 996-670507-07-2022 Consult note Author Lisa Hennessy [facility] January 30, 2022 9:35am Note Date/Time January 29, 2022 1:35p m [facility] [place] [address] Hem/Onc Consult Note - OP Signed Patient: Denia Al MR#: [id number] : 1960 Acct:[id number] Age/Sex: 61 / F Type: REG RCR Copies to: DO Howard Flores MD~ HPI Date/Time of Service: Date of Service: 01/29/2022 Time of Service: 13:34 Referring Provider/PCP: Referring Provider: Howard Schumacher MD PCP: Howard Schumacher MD - History of Present Illness Reason for Consultation: Palpable right breast mass--biopsy in December 2021 shows invasive ductal carcinoma (provisional grade 2) ER 95%, KY 95%, Her-2 equivocal IHC 1+ with equivocal FISH(HER2/CEP 17 1.4; Her2 copy number 4.0). Discussion of options for possible neoadjuvant therapy vs. upfront surgery. Chief Complaint: Patient is here today for a referral from Dr Magana for invasisve ductal carcinoma of right breast HPI: Dear Dr. Magana, I had the great pleasure of seeing your patient in consultation. Thank you verymuch for your referral. As you know, this is a 61 year old female with minimal comorbidities who noted a fullness of right upper outer quadrant of breast--nontender, no skin erythema or dimpling, no nipple deviation or discharge, no obvious axillary fullness. She is , age 29 with first . Postmenopausal--no prior hysterectomy or oophorectomy, no history of hormone replacement therapy. + family history of a maternal aunt with breast cancer ( in 90s of natural causes). No family history of ovarian or other cancers. I reviewed her [facility] mammography 12/25/21 and ultrasound 01/01/2022 reports. Breast mass is about 3.6cm in greatest dimension on US (3.8 cm on mammogram). US guided breast biopsy on 01/01/2022 revealed invasive ductal carcinoma (provisional grade 2) ER 95%, KY 95%, Her-2 equivocal IHC 1+ with equivocal FISH (HER2/CEP 17 1.4; Her2 copy number 4.0). I discussed the case initially with Dr. Magana prior to referral and I discussed results above with the patient and her . Due to equivocal results of initial HER2 studies on breast biopsy, I recommended right axillary US with biopsy. If no enlarged axillary LN or axilla biopsy negative for cancer, she may proceed with upfront surgery. If biopsy is + for cancer, especially if Her2 positive, she should return to consent for neoadjuvant chemotherapy with TCHP. Following her US and biopsy within the next week, I will discuss her case at [facility] tumor board 02/03/2022 then coordinate phone followup to discuss multidisciplinary planof care. High complexity visit--60 min face to face, 30 min to review outside records and coordinate tumor board discussion of plan. [facility] - History Attestation statement: The following information was validated with the patient. Source: Old Records Reviewed - Surgical History Surgical History: Surgical History (Last Reviewed 01/30/22 @ 09:23 by Lisa Hennessy MD) H/O splenectomy H/O tubal ligation History of lumpectomy of right breast Hx of appendectomy Hx of tonsillectomy - Family History Family History: Family History (Last Reviewed 01/30/22 @ 09:23 by Lisa Hennessy MD) Father Liver cancer Father Diabetes Mother Diabetes Mother Hypertension Mother Heart disease - Social History Smoking Status: Current every day smoker Tobacco Type: cigarettes Substance Use Type: Alcohol Home Medications & Allergies Allergies penicillin G Adverse Reaction (Verified 01/29/22 13:16) Unknown Reaction Home Medications No known home meds 01/29/22 [History Confirmed 01/29/22] Subjective Data - Diagnosis DIAGNOSIS: New diagnosis right upper inner quadrant breast cancer 3.6cm primary by US (clinical T2 Nx Mx) --01/01/2022 biopsy: invasive ductal carcinoma (provisional grade 2) ER 95%, [place] 95%, Her-2 equivocal IHC 1+ with equivocal FISH (HER2/CEP 17 1.4; Her2 copy number 4.0). Subjective/ROS - Narrative: CONSTITUTIONAL: Negative for fatigue, negative for fever or night sweats. HEAD AND NECK: Negative for changes in hearing and vision. Negative for mouth ulcers, nasal congestion and nasal drainage. PULMONARY: Negative for chest pain, cough and dyspnea. CARDIOVASCULAR: Negative for claudication and irregular heartbeat/palpitations. GASTROINTESTINAL: Negative for abdominal pain, constipation, decreased appetite,diarrhea and vomiting. GENITOURINARY: Negative for dysuria and hematuria. ENDOCRINE: Negative for cold intolerance and heat intolerance. Right upper inner quadrant palpable mass since 10/2021, relative slow growth past 3 months. CENTRAL NERVOUS SYSTEM: Negative for gait disturbance and headache. PSYCHIATRIC: Negative for anxiety or depression. DERMATOLOGICAL: Negative for pruritus and rash. Negative for suspicious skin lesions. No skin discoloration or dimpling over breast mass. MUSCULOSKELETAL: Negative for back pain and bone/joint symptoms. HEMATOLOGICAL: Negative for bleeding and easy bruising. Negative for history of transfusion or thromboembolic disease ALLERGY: Negative for environmental allergies and food allergies. ROS Details: All systems reviewed & no additional complaints except as documented Objective - Height/Weight Height/Weight: Height 5 ft 5 in Weight 72.575 kg - Vital Signs Vital Signs: 01/29/22 13:25 Temperature 97.2 F L Pulse Rate [Left Brachial] 72 Respiratory Rate 16 Blood Pressure [Left Arm] 160/90 H 02 Sat by Pulse Oximetry 98 Physical Exam Narrative: CONSTITUTIONAL: The patient is in no acute distress. HEAD / FACE: Normocephalic. EYES: Pupils are equal and reactive to light. Conjunctivae and lids are benign in appearance. Ocular movement intact. EARS: Hearing grossly intact. NOSE / MOUTH / THROAT: Nose, mouth, tongue and oropharynx are benign in appearance. No signs of inflammation. NECK / THYROID: Neck is supple. Thyroid is symmetrical, without thyromegaly, masses or palpable nodules. BREAST EXAM: Right breast firm 3.6cm x 3.4cm mass right upper inner quadrant. No skin erythema or dimpling. No nipple discharge or deviation LYMPHATIC: No palpable cervical, supraclavicular, infraclavicular, or inguinal adenopathy. No left axillary adenopathy. Ill defined fullness right axilla, indeterminate for adenopathy. RESPIRATORY: Normal to inspection. Lungs clear to auscultation and percussion. No wheezing, rales, rhonchi or rubs. Normal effort. CARDIOVASCULAR: Regular rate and rhythm. No murmurs, gallops, or rubs. VASCULAR: Carotid, radial, femoral and pedal pulses present bilaterally. No bruits. ABDOMEN: Bowel sounds normoactive. Soft, nontender and non-distended. No hepatosplenomegaly. No masses. GENITOURINARY: No CVA tenderness. No suprapubic fullness or tenderness. No groinadenopathy. No evidence of hernias. INTEGUMENTARY: The skin is unremarkable. No rashes. No suspicious lesions BACK / SPINE: The back is nontender. MUSCULOSKELETAL: Normal musculature, no joint deformities or abnormalities, normal range of motion for all four extremities. EXTREMITIES: No edema, cyanosis or clubbing. No Merle sign. NEUROLOGICAL: Alert and oriented. Cranial nerves intact. No gross motor or sensory deficits. PSYCHIATRIC: No anxiety or evidence of depression. - ECOG Performance Status ECOG Score: 0 Results - Labs Outside Labs: No laboratories for review. - Impressions I reviewed her [facility] mammography 12/25/21 and ultrasound 01/01/2022 reports. Breast mass is about 3.6cm in greatest dimension on US (3.8 cm on mammogram). Assessment and Plan - TNM Staging Staging: Right upper inner quadrant breast cancer 3.6cm primary by US (clinical T2 Nx Mx) (1) Malignant neoplasm of upper-inner quadrant of right breast in female, estrogen receptor positive This is a 61 year old female with minimal comorbidities who noted a fullness of right upper outer quadrant of breast in October 2021. Subsequent mammogram, US, and biopsy confirmed a 3.6cm invasive ductal carcinoma (provisional grade 2) ER 95%, [place] 95%, Her-2 equivocal IHC 1+ with equivocal FISH (HER2/CEP 17 1.4; Her2 copy number 4.0). I discussed the case initially with Dr. Magana prior to referral and I discussed results above with the patient and her . Due to equivocal results of initial HER2 studies on breast biopsy, I recommended right axillary US with biopsy. If no enlarged axillary LN or axilla biopsy negative for cancer, she may proceed with upfront surgery. If biopsy is + for cancer, especially if Her2 positive, she should return to consent for neoadjuvant chemotherapy with TCHP. Following her US and biopsy within the next week, I will discuss her case at [facility] tumor board 02/03/2022 then coordinate phone followup to discuss multidisciplinary plan of care. High complexity visit--60 min face to face, 30 min to review outside records andcoordinate tumor board discussion of plan. I would like to thank you very much for the courtesy of this referral. I will keep you up-to-date with this patient's progress. Should you have any questionsregarding the management of this patient, please do not hesitate to contact me. Sincerely, Lisa Hennessy MD, FACP Medical Oncology - Chemo Plan Chemo Plan (Dose, Rate, Freq): Pending right axillary staging as noted above. Goal of Treatment: Curative - Time with Patient Total Time Spent with Patient (Consult): 60 mins or more Coordination of Care & Counseling Time: Greater than 50% of time spent with patient was for coordination of care (as documented) and [id number] counseling of patient and/or family. Dictated By: Lisa Hennessy MD DD/ 1334 Signed By: <Electronically signed by MD Lisa Hennessy> 01/30/22 0935 [facility] Work Phone: Evaluation note* Diagnosis Onset Date Resolution Status [id number] acute [facility] Work Phone: Evaluation note* Diagnosis Onset Date Resolution Status [id number] chronic [facility] Work Phone: Evaluation note* Diagnosis Onset Date Resolution Status Encounter for monitoring aromatase inhibitor therapy chronic [id number] chronic Osteopenia chronic Screening for osteoporosis c hronic [facility] Work Phone: Evaluation note* Diagnosis Onset Date Resolution Status Adnexal mass acute Aromatase inhibitor-associated arthralgia acute Encounter for monitoring aromatase inhibitor therapy chronic [id number] chronic Osteopenia chronic Screening for osteoporosis c [facility] Work Phone: Evaluation noteNo assessment information available [facility] Work Phone: Evaluation note* Diagnosis Onset Date Resolution Status Adnexal mass acute Aromatase inhibitor-associated arthralgia acute Encounter for monitoring aromatase inhibitor therapy chronic [id number] chronic Osteopenia chronic Screening for osteoporosis c [facility] Aromatase inhibitor-associated arthralgia acute History of bilateral salpingo-oophorectomy acute Encounter for monitoring aromatase inhibitor therapy chronic [id number] chronic Osteopenia chronic [facility] Work Phone: Evaluation note* Diagnosis Malignant neoplasm of upper-inner quadrant of right breast in female, estrogen receptor positive (CMS/HCC)- Primary [facility] Diagnosis Arthralgia, unspecified joint- Primary Encounter for long-term (current) use of medications Encounter for long-term (current) use of other medications Lipid screening Screening for lipoid disorders Obesity (BMI 30-39.9) Chronic right shoulder pain- Primary Pain in joint, shoulder region Abscess, toe, left- Primary Onychocryptosis Ingrowing nail Toe pain, left Pain in soft tissues of limb documented in this encounter [facility]* Diagnosis Arthralgia, unspecified joint- Primary Encounter for long-term (current) use of medications Encounter for long-term (current) use of other medications Lipid screening Screening for lipoid disorders Obesity (BMI 30-39.9) Chronic right shoulder pain- Primary Pain in joint, shoulder region Arthralgia, unspecified joint- Primary Ductal carcinoma of right breast (CMS/HCC) Encounter for long-term (current) use of medications Encounter for long-term (current) use of other medications Dyslipidemia (CMS/HCC) Other and unspecified hyperlipidemia [facility]* Diagnosis Arthralgia, unspecified joint- Primary Encounter for long-term (current) use of medications Encounter for long-term (current) use of other medications Lipid screening Screening for lipoid disorders Obesity (BMI 30-39.9) Chronic right shoulder pain- Primary Pain in joint, shoulder region Arthralgia, unspecified joint- Primary Ductal carcinoma of right breast (CMS/HCC) Encounter for long-term (current) use of medications Encounter for long-term (current) use of other medications Dyslipidemia (CMS/HCC) Other and unspecified hyperlipidemia Onychocryptosis- Primary Ingrowing nail Toe pain, left Pain in soft tissues of limb Abscess, toe, left [facility]* Diagnosis Onset Date Resolution Status Admit Date Adnexal mass acute July 9:13am Aromatase inhibitor-associat ed arthralgia acute August 22 9:13am Encounter for monitoring aromatase inhibitor therapy chronic 2024 9:13am Malignant neoplasm of upper-inner quadrant of right breast in female, estro chronic August 22, 2024 9:13am Osteopenia chronic August 22, 2024 9:13am Screening for osteoporosis chronic August 22, 2024 9:13am Aromatase inhibitor-associat ed arthralgia acute August 22 9:13am History of bilateral salpingo-oophorectomy acute August 222024 9:13am Encounter for monitoring aromatase inhibitor therapy chronic 2024 9:13am Malignant neoplasm of upper-inner quadrant of right breast in female, estro chronic August 22, 2024 9:13am Osteopenia chronic August 22, 2024 9:13am [facility] Work Phone: History of Present illness Narrative* Tone Magana, DO - 04/01/2024 10:15 AM EDT Images from the original note were not included. Denia Al 1960 Denia Al is a 63 y.o. female presents with chief complaint of 2nd poy Rt. lumpectomy (Mamms done in December) HPI: HPI Denia is 2 years post Rt. Lumpectomy, she has no breast issues and is doing well SUBJECTIVE: MEDICATIONS: ALLERGIES Current Outpatient Medications Medication Instructions anastrozole (ARIMIDEX) 1 mg, Oral, Daily Ascorbic Acid (vitamin C) 1000 MG tablet Every 24 hours calcium carbonate (Os-Satya) 1250 (500 Ca) MG tablet Every 24 hours cholecalciferol (Vitamin D3) 25 MCG (1000 UT) tablet Every 24 hours docusate sodium (Colace) 100 MG capsule take 1 capsule by mouth every morning and BEFORE BEDTIME meloxicam (MOBIC) 15 mg, Oral, Daily mometasone (Elocon) 0.1 % cream apply topically to RADIATION SITE DAILY AFTER RADIATION Stool Softener/Laxative 50-8.6 MG tablet take 1 tablet by mouth every 12 hours if needed for constipation Allergies Allergen Reactions Penicillin G Unknown PAST MEDICAL HISTORY: SOCIAL HISTORY SURGICAL HISTORY: Past Medical History: Diagnosis Date Acute tonsillitis At low risk for fall Breast cancer (CMS/HCC) [facility] ER/KY + Her2 neg Genetic testing negative Measles Overweight (BMI 25.0-29.9) Social History Tobacco Use Smoking status: Former Current packs/day: 0.00 Average packs/day: 0.5 packs/day for 30.0 years (15.0 ttl pk-yrs) Types: Cigarettes Start date: 04/12/1992 Quit date: 04/12/2022 Years since quittin.9 Smokeless tobacco: Never Tobacco comments: Last smoked : 1-3 months Substance Use Topics Alcohol use: Yes Alcohol/week: 7.0 - 9.0 standard drinks of alcohol Types: 7 - 9 Standard drinks or equivalent per week Comment: caffeine intake : soda/pop; coffee Drug use: Never Past Surgical History: Procedure Laterality Date BREAST LUMPECTOMY Right 02/18/2022 w/ sln bx 0/2 SLN BREAST SURGERY 03/07/2022 washout rt breast hematoma CYST REMOVAL 1982 ruptured cyst, fallopian tube HYSTERECTOMY 01/22/2023 right salpingo-oophorectomy, lysis of adhesions SPLENECTOMY, TOTAL 1979 TUBAL LIGATION 1989 FAMILY HISTORY Family History Problem Relation Name Age of Onset Heart disease Mother Hypertension Mother Diabetes Mother Diabetes Father Cancer Father Liver cancer Father Diabetes Sister Breast cancer Mother's Sister Ovarian cancer Neg Hx Colon cancer Neg Hx REVIEW OF SYMPTOMS: Review of Systems Constitutional: Negative for diaphoresis and unexpected weight change. HENT: Negative for hearing loss, tinnitus and voice change. Respiratory: Negative for shortness of breath. Cardiovascular: Negative for chest pain and palpitations. Musculoskeletal: Negative for arthralgias. Neurological: Negative for dizziness, seizures and headaches. All other systems reviewed and are negative. Hematological: Negative for adenopathy. Does not bruise/bleed easily. 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 HENT: Head: Normocephalic. Cardiovascular: Rate and Rhythm: Normal rate and regular rhythm. Pulmonary: Effort: Pulmonary effort is normal. Breath sounds: Normal breath sounds. Chest: Comments: Bilateral supraclavicular, infraclavicular, bicipital and axillary lymph nodes were foundto be normal. Each breast was examined in the sitting and supine position, there was no evidence ofmasses, dimpling or discharge in either breast. The right breast scar is dense but without masses Abdominal: General: Abdomen is flat. Bowel sounds are normal. Palpations: Abdomen is soft. Skin: General: Skin is warm and dry. Neurological: Mental Status: She is alert. ASSESSMENT AND PLAN: Assessment/Plan Problem List Items Addressed This Visit Malignant neoplasm of upper-inner quadrant of right breast in female, estrogen receptor positive (CMS/HCC) - Primary Her mamm's and Rt. Axillary US were done 12/31/23 and showed - No mammographic evidence of malignancy. Similar benign-appearing right axillary lymph Nodes I'll see her in 6 months for recheck documented in [facility] Work Phone: Progress note Author Lisa Hennessy [facility] March 16, 2022 2:02pm Note Date/Time March 15, 2022 9: 18pm [facility] at [address] [address] Hem/Onc Follow Up Note - OP Signed Patient: Denia Al MR#: [id number] : 1960 Acct:[id number] Age/Sex: 61 / F Type: REG RCR Copies to: DO Howard Flores MD~ Subjective Date/Time of Service: Date of Service: 03/14/2022 Time of Service: 13:15 Chief Complaint: Patient is here today for a follow up visit for her pathology results d/t having right breast lumpectomy HPI: 03/14/2022: Denia completed right upper outer quadrant lumpectomy by Dr. Magana on and is here to review pathology results and recommendations for adjuvant therapy. She had to return to OR for evacuation ofa large hematoma in biopsy cavity on 03/05/2022 and continues followup with Dr. Magana. I reviewed pathology results showing Invasive Lobular Carcinoma, [place] histologic score 8/9 (score 3), size 50mm, margins negative for carcinoma, ER 95%, KY 95%, Her2 1+ by IHC, negative. 2 sentinel lymph nodes negative for involvement by tumor. pT2 pN0 Mx. Interestingly, original pathology was invasive ductal carcinoma (lumpectomy final pathology invasive lobular carcinoma). --No residual fullness or pain at surgical site. Discussed Oncotype Dx--will send pathology for testing and followup in 2 weeks. Moderate complexity 35 minute followup visit. 02/07/2022: Phone followup today to discuss [facility] tumor board discussion forplan with Dr. Magana for invasive ductal carcinoma of right breast. I contacted patient today after discussion in [facility] Tumor Board this am. Right axillary ultrasound was negative for adenopathy. Since HER2 is indeterminate and node negative, we recommended upfront lumpectomy. She will schedule with Dr. Magana and I will meet with her 2 weeks post operatively todiscuss pathology results and adjuvant therapy options. Moderate complexity phone followup. ---- Reason for Consultation: Palpable right breast mass--biopsy in December 2021 shows invasive ductal carcinoma (provisional grade 2) ER 95%, KY 95%, Her-2 equivocal IHC 1+ with equivocal FISH(HER2/CEP 17 1.4; Her2 copy number 4.0). Discussion of options for possible neoadjuvant therapy vs. upfront surgery. ORIGINAL CONSULT: 01/29/2022: This is a 61 year old female with minimal comorbidities who noted a fullness of right upper outer quadrant of breast--nontender, no skin erythema or dimpling, no nipple deviation or discharge, no obvious axillary fullness. She is , age 29 with first . Postmenopausal--no prior hysterectomy or oophorectomy, no history of hormone replacement therapy. + family history of a maternal aunt with breast cancer ( in 90s of natural causes). No family history of ovarian or other cancers. I reviewed her [facility] mammography 12/25/21 and ultrasound 01/01/2022 reports. Breast mass is about 3.6cm in greatest dimension on US (3.8 cm on mammogram). US guided breast biopsy on 01/01/2022 revealed invasive ductal carcinoma (provisional grade 2) ER 95%, KY 95%, Her-2 equivocal IHC 1+ with equivocal FISH (HER2/CEP 17 1.4; Her2 copy number 4.0). I discussed the case initially with Dr. Magana prior to referral and I discussed results above with the patient and her . Due to equivocal results of initial HER2 studies on breast biopsy, I recommended right axillary US with biopsy. If no enlarged axillary LN or axilla biopsy negative for cancer, she may proceed with upfront surgery. If biopsy is + for cancer, especially if Her2 positive, she should return to consent for neoadjuvant chemotherapy with TCHP. Following her US and biopsy within the next week, I will discuss her case at [facility] tumor board 02/03/2022 then coordinate phone followup to discuss multidisciplinary planof care. High complexity visit--60 min face to face, 30 min to review outside records and coordinate tumor board discussion of plan. DIAGNOSIS: New diagnosis right upper inner quadrant breast cancer 3.6cm primary by US (clinical T2 Nx Mx) --01/01/2022 biopsy: invasive ductal carcinoma (provisional grade 2) ER 95%, KY 95%, Her-2 equivocal IHC 1+ with equivocal FISH (HER2/CEP 17 1.4; Her2 copy number 4.0). --02/18/2022 lumpectomy with sentinel lymph node biopsy: Invasive Lobular Carcinoma, Lynda histologic score 8/9 (score 3), size 50mm, margins negative for carcinoma, ER 95%, KY 95%, Her2 1+ by IHC, negative. 2 sentinel lymph nodes negative for involvement by tumor. pT2 pN0 Mx. - Summary of Therapies Summary of Therapies: 02/18/2022 Right breast lumpectomy with sentinel lymph node biopsy. 03/14/2022: Discussion of Oncotype DX to determine whether to recommend adjuvantchemotherapy prior to radiation and hormonal therapy. ROS Details: All systems reviewed & no additional complaints except as documented Subjective/ROS - Narrative: CONSTITUTIONAL: Negative for fatigue, negative for fever or night sweats. HEAD AND NECK: Negative for changes in hearing and vision. Negative for mouth ulcers, nasal congestion and nasal drainage. PULMONARY: Negative for chest pain, cough and dyspnea. CARDIOVASCULAR: Negative for claudication and irregular heartbeat/palpitations. GASTROINTESTINAL: Negative for abdominal pain, constipation, decreased appetite,diarrhea and vomiting. GENITOURINARY: Negative for dysuria and hematuria. ENDOCRINE: Negative for cold intolerance and heat intolerance. Right upper inner quadrant palpable mass since 10/2021, now well-healed since lumpectomy 02/18then evacuation of hematoma 03/07/2022 (no mass today). CENTRAL NERVOUS SYSTEM: Negative for gait disturbance and headache. PSYCHIATRIC: Negative for anxiety or depression. DERMATOLOGICAL: Negative for pruritus and rash. Negative for suspicious skin lesions. No skin discoloration or dimpling over breast mass. MUSCULOSKELETAL: Negative for back pain and bone/joint symptoms. HEMATOLOGICAL: Negative for bleeding and easy bruising. Negative for history of transfusion or thromboembolic disease ALLERGY: Negative for environmental allergies and food allergies. PMFSH - History Attestation statement: The following information was validated with the patient. Source: Old Records Reviewed - Medical History Medical History: Medical History (Last Reviewed 03/16/22 @ 13:49 by Lisa Hennessy MD) Breast cancer current rt Smoker - Surgical History Surgical History: Surgical History (Last Reviewed 03/16/22 @ 13:49 by Lisa Hennessy MD) H/O lumpectomy 01/2022 H/O splenectomy H/O tubal ligation History of lumpectomy of right breast -benign Hx of appendectomy Hx of tonsillectomy - Family History Family History: Family History (Last Reviewed 03/16/22 @ 13:49 by Lisa Hennessy MD) Father Liver cancer Diabetes Mother Hypertension Diabetes Heart disease Sister Diabetes - Social History Smoking Status: Current every day smoker Tobacco Type: cigarettes Substance Use Type: Alcohol Home Medications & Allergies Allergies penicillin G Adverse Reaction (Verified 03/14/22 13:11) convulsions Home Medications No known home meds 03/14/22 [History Confirmed 03/14/22] Objective - Height/Weight Height/Weight: Height 5 ft 5 in Weight 74.843 kg - Vital Signs Vital Signs: Reviewed--elevated BP, normal HR Physical Exam Narrative: CONSTITUTIONAL: The patient is in no acute distress. HEAD / FACE: Normocephalic. EYES: Pupils are equal and reactive to light. Conjunctivae and lids are benign in appearance. Ocular movement intact. EARS: Hearing grossly intact. Limited BREAST EXAM: Right breast well healed incision without mass right upperinner quadrant. No skin erythema or dimpling. No nipple discharge or deviation NOSE / MOUTH / THROAT: Nose, mouth, tongue and oropharynx are benign in appearance. No signs of inflammation. NECK / THYROID: Neck is supple. Thyroid is symmetrical, without thyromegaly, masses or palpable nodules. LYMPHATIC: No palpable cervical, supraclavicular, infraclavicular, or inguinal adenopathy. No left axillary adenopathy. Ill defined fullness right axilla, indeterminate for adenopathy. RESPIRATORY: Normal to inspection. Lungs clear to auscultation and percussion. No wheezing, rales, rhonchi or rubs. Normal effort. CARDIOVASCULAR: Regular rate and rhythm. No murmurs, gallops, or rubs. VASCULAR: Carotid, radial, femoral and pedal pulses present bilaterally. No bruits. ABDOMEN: Bowel sounds normoactive. Soft, nontender and non-distended. No hepatosplenomegaly. No masses. GENITOURINARY: No CVA tenderness. No suprapubic fullness or tenderness. No groinadenopathy. No evidence of hernias. INTEGUMENTARY: The skin is unremarkable. No rashes. No suspicious lesions BACK / SPINE: The back is nontender. MUSCULOSKELETAL: Normal musculature, no joint deformities or abnormalities, normal range of motion for all four extremities. EXTREMITIES: No edema, cyanosis or clubbing. No Merle sign. NEUROLOGICAL: Alert and oriented. Cranial nerves intact. No gross motor or sensory deficits. PSYCHIATRIC: No anxiety or evidence of depression. - ECOG Performance Status ECOG Score: 1 Results - Labs Labs: No new labs for review - Impressions No new imaging for review. Assessment and Plan - TNM Staging Staging: Right upper inner quadrant breast cancer 3.6cm primary by US (clinical T2 Nx Mx) --02/18/2022: Right lumpectomy/sentinel lymph node biopsy now Invasive Lobular Carcinoma, [place] histologic score 8/9 (score 3), size 50mm, margins negative for carcinoma, ER 95%, KY 95%, Her2 1+ by IHC, negative. 2 sentinel lymph nodes negative for involvement by tumor. pT2 pN0 Mx. (1) Malignant neoplasm of upper-inner quadrant of right breast in female, estrogen receptor positive This is a 61 year old female with minimal comorbidities who noted a fullness of right upper outer quadrant of breast in October 2021. Subsequent mammogram, US, and biopsy confirmed a 3.6cm invasive ductal carcinoma (provisional grade 2) ER 95%, KY 95%, Her-2 equivocal IHC 1+ with equivocal FISH (HER2/CEP 17 1.4; Her2 copy number 4.0). I discussed the case initially with Dr. Magana prior to referral and I discussed results above with the patient and her . Due to equivocal results of initial HER2 studies on breast biopsy, I recommended right axillary US with biopsy. If no enlarged axillary LN or axilla biopsy negative for cancer, she may proceed with upfront surgery. If biopsy is + for cancer, especially if Her2 positive, she should return to consent for neoadjuvant chemotherapy with TCHP. Following her US and biopsy within the next week, I will discuss her case at [facility] tumor board 02/03/2022 then coordinate phone followup to discuss multidisciplinary plan of care. High complexity visit--60 min face to face, 30 min to review outside records andcoordinate tumor board discussion of plan. 03/14/2022: Here for followup after right breast lumpectomy/sentinel lymph node on 02/18/2022. She had evacuation of post op hematoma on 03/07/2022. We reviewedpathology showing Invasive Lobular Carcinoma, Lynda histologic score 8/9 (score 3), size 50mm, margins negative for carcinoma, ER 95%, KY 95%, Her2 1+ byIHC, negative. 2 sentinel lymph nodes negative for involvement by tumor. pT2 pN0 Mx. ----Today we discussed Oncotype Dx testing due to high grade ER+, KY+, Her2 negative cancer. She understands that if low risk, we would recommend referrralfor radiation therapy followed by hormonal therapy. If high risk recurrence score, we will discuss the benefit of adjuvant chemotherapy prior to radiation and hormonal therapy. She will return in 2 weeks to review Oncotype Dx results. Moderate complexity followup 35 minutes to discuss pathology results. - Chemo Plan Chemo Plan (Dose, Rate, Freq): Oncotype Dx testing to determine plan for adjuvant therapy. Goal of Treatment: Curative - Time with Patient Time Spent with Patient (Follow Up Visit): 35 minutes Coordination of Care & Counseling Time: Greater than 50% of time spent with patient was for coordination of care (as documented) and [id number] counseling of patient and/or family. Dictated By: Lisa Hennessy MD DD/ 16 Signed By: <Electronically signed by MD Lisa Hennessy> 03/16/22 1402 [facility] Work Phone: Progress note Author Kylee Lindsay [facility] June 18, 2022 9:21am Note Date/Time June 18, 2022 8:35am [facility] [place] [address] Rad Onc Follow Up Note - OP Signed Patient: Denia Al MR#: [id number] : 1960 Acct:[id number] Age/Sex: 62 / F Type: REG RCR Copies to: MD Tone Kay DO Marc Naderer, MD~ Date of Service Service Date: 06/18/22 Assessment & Plan (1) Malignant neoplasm of upper-inner quadrant of right breast in female, estrogen receptor positive Plan: RTC PRN Assessment: 62-year-old female with pT2N0 invasive lobular carcinoma and invasive ductal carcinoma (biopsy) of the upper outer quadrant of the right breast, ER/KY positive HER2 negative. We reviewed her pathology in detail which shows a 5 cm primary tumor, grade 3, with negative sentinel lymph nodes 0/2 and clear margins. There was no LVSI. May 20, 2022 patient completed whole breast radiation to a dose of 40.05 Shi in 15 fractions with a boost to the cavity of 10 Shi in 4 fractions. She tolerated her radiation therapy well. She was given anastrozole Medical Oncology and denies any side effects. I am pleased with her clinical response. We reviewed light massage techniques to help prevent radiation fibrosis. She has appropriate follow-up with both medical oncology and surgery so we will discharge her today in their care. We are happy to see her back at any time if there is a need for additional radiation or radiation related concerns. Follow Up Note - Narrative 61-year-old female who reported fullness of the right breast. There is no palpable mass no skin changes. December 25, 2021 diagnostic mammogram with US, showed a macro lobular mass at the 3 o'clock position 4.5 cm in diameter corresponding to the patient's palpable lump. Ultrasound showed macro lobular heterogeneous hypoechoic mass 3.8 cm. January 01, 2022 ultrasound-guided breast biopsy confirmed invasive ductal carcinoma, provisional grade 2, ER/KY positive with HER2 equivocal IHC 1+ with equivocalFISH. HER2 copy #4. Clinical stage T2 NX MX. February 07, 2022 right axillary ultrasound was negative for adenopathy. Since [id number] indeterminate node-negative she was recommended for upfront surgery. January 16, 2022 [employer] testing returned negative February 18, 2022 patient proceeded to right breast lumpectomy with sentinel lymph node biopsy. Final pathology confirmed invasive lobular carcinoma, grade 3, 5 cm in size with margins negative. Closest margin was 0.5 mm anteriorly. There was no LVSI identified. There was associated LCIS. ER/KY +2 sentinel nodes negative for tumor. pT2N0 repeat HER2 IHC was negative. February 2022 Oncotype score returned 18 with no chemotherapy recommended. May 20, 2022 patient completed whole breast radiation to a dose of 40.05 Shi in 15 fractions with a boost to the cavity of 10 Shi in 4 fractions. She tolerated her radiation therapy well. She was given anastrozole I Medical Oncology. Today patient is overall doing well and has recovered from her radiation. She has no new breast related complaints. Denies any side effects from her anastrozole. Physical exam: General: Alert and oriented, no acute distress. HEENT: Normocephalic, extraocular movements intact Chest: Normal work of breathing on room air Breast: Treated breast shoes expected post radiation change with residual tanning. No erythema no desquamation. No palpable mass or abnormality. Contralateral breast within normal limits. Abdomen: Nonacute MSK: Extremities within normal limits Dictated By: Kylee Lindsay MD DD/ Signed By: <Electronically signed by Kylee Lindsay MD> 06/18/2221 [facility] Work Phone: Progress note Author Ciera [facility] March 12, 2023 2:09pm Note Date/Time March 12, 2023 1: 58pm [facility] at [address] [address] Hem/Onc Follow Up Note - OP Signed Patient: Denia Al MR#: [id number] : 1960 Acct:[id number] Age/Sex: 62 / F Type: REG RCR Copies to: MD Howard Kay MD~ Subjective Date/Time of Service: Date of Service: 03/12/2023 Time of Service: 13:51 Chief Complaint: Patient is here for an add on visit/3 week follow up, taking anastrozole. Patient reports that the joint pain she was having at her last visit has gotten worse instead of better. HPI: 03/12/2023: Denia is seen again today for add on visit. She was seen about 3 weeks ago with myalgias/arthralgias; felt to be related to anastrazole. We had adiscussion about changing medication vs stopping medication for 2 weeks and restarting. At that time, she elected to hold anastrazole x 2 weeks and restart.She does feel like she had some improvement - maybe 30% improved off anastrazole. She restarted anastrazole 1 week ago and is seen today again due torecurrence of profound myalgias/arthralgias; particularly involving her bilateral shoulders, bilateral hips, low back, feet and bilateral hands. She hasnotable synovitis involving her MCP joints bilaterally and is significantly tender to touch in the shoulders and proximal upper extremities. No history of rheumatological or autoimmune conditions. No changes on self breast exam, deniesweight loss, abdominal pain, lymphadenopathy. 02/19/2023: Denia is here for add on visit; just seen about 6-7 weeks ago with no evidence of recurrence - negative mammogram. She was added on today due to concerns and untoward side effects related to her adjuvant endocrine therapy with anastrazole. Of note, she was started on anastrazole in April 2022. She was in her usual state of health until January 21, 2023 when she experienced severe, stabbing right lower quadrant abdominal pain that prompted urgent evaluation in the emergency department. Upon further work-up, she was found to have a very large right adnexal mass measuring ~ 13 cm. She was urgently transferred to [facility] and underwent total hysterectomy, bilateral salpingo-oophorectomy and lysis of adhesions on January 21, 2023. 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 Upon discharge from the hospital she has noted more significant hot flashes, fatigue and arthralgias associated with her AI therapy. Initially, she seems to have done well with anastrazole but has just not been the same since having her surgery 1 month ago. Otherwise, no changes onself breast exam, new bony pain, weight loss, abdominal pain, nausea/vomiting orheadaches. Last follow up with surgery was 10 days ago, saw Dr. Magana on 02/04/2023. 12/31/2022: Denia is here for 4-month follow-up on endocrine therapy for early- stage hormone positive breast cancer. She is tolerating anastrozole reasonably well without significant hot flashes or fatigue. She does have some occasional joint aches which are stable with use of ibuprofen. No changes on self breast exam and 1 year mammogram did not show any evidence of recurrence. She has regular follow-up with Dr. Magana of general surgery, next evaluation in January. Okay to extend her follow-up from medical oncology to every 6 months or sooner if she has new clinical concerns. 09/11/2022: Denia is here for interval 3-month follow-up on adjuvant endocrine therapy with anastrozole for early stage, hormone positive breast cancer. She denies any significant hot flashes or fatigue. She does not some increased arthralgias in the shoulders, elbows, wrists and knees since starting anastrazole. She takes Ibuprofen as needed and reports this to be tolerable for the time being. She is due for next mammogram in December 2022. Saw Dr. Magana 1 month ago on 08/04/2022 with normal exam. She reports no other changes or concerns. No changes on self breast exam or new areas of pain. 06/11/2022: Denia completed radiation therapy 3 weeks ago with start of anastrozole therapy. She denies any significant hot flashes, arthralgias or myalgias. She has intermittent tenderness in radiation field but no breast or arm lymphedema. Baseline DEXA from 04/10/2022 showed normal bone density (T score -0.6) lumbar spine, osteopenia (T score -1.4 left femoral neck, T score -1.5 right femoral neck) bilateral hips. We are adding calcium with vitamin D and patient may check Vit D level with primary care. Continue anastrozole 1mg daily. OK for 3 month f/u with [facility] and 6 month f/u with me, sooner if new issuesarise. 04/02/2022: Denia is here to review results of Oncotype DX from her original lumpectomy specimen. She has not had any further issues with her seroma. I discussed in detail her recurrence score of 18 which corresponds to a 5% recurrence risk at 9 years and no benefit to chemotherapy with age greater than 50. We discussed typical approach after lumpectomy is to proceed to radiation therapy and she will have consult today. We discussed options for hormonal therapy including tamoxifen versus aromatase inhibitors. She still has intact uterus and there is increased risk of endometrial cancer and thrombosis with tamoxifen and therefore aromatase inhibitor is recommended. We discussed side effects of aromatase inhibitor such as hot flashes, lower bone density, and about 20% incidence of myalgias and arthralgias. She will have baseline DEXA scan and will commence anastrozole 1 mg daily following her radiation therapy. I will see her at the end of 4 weeks of anastrozole to review side effects and to determine if she may continue 5 to 7 years of adjuvant hormonal therapy. Allquestions answered to the patient and her over this 35- minute visit to review Oncotype findings, counseling for radiation and AI therapy. 03/14/2022: Denia completed right upper outer quadrant lumpectomy by Dr. Magana on and is here to review pathology results and recommendations for adjuvant therapy. She had to return to OR for evacuation ofa large hematoma in biopsy cavity on 03/05/2022 and continues followup with Dr. Magana. I reviewed pathology results showing Invasive Lobular Carcinoma, Lynda histologic score 8/9 (score 3), size 50mm, margins negative for carcinoma, ER 95%, KY 95%, Her2 1+ by IHC, negative. 2 sentinel lymph nodes negative for involvement by tumor. pT2 pN0 Mx. Interestingly, original pathology was invasive ductal carcinoma (lumpectomy final pathology invasive lobular carcinoma). --No residual fullness or pain at surgical site. Discussed Oncotype Dx--will send pathology for testing and followup in 2 weeks. Moderate complexity 35 minute followup visit. 02/07/2022: Phone followup today to discuss [facility] tumor board discussion forplan with Dr. Magana for invasive ductal carcinoma of right breast. I contacted patient today after discussion in [facility] Tumor Board this am. Right axillary ultrasound was negative for adenopathy. Since HER2 is indeterminate and node negative, we recommended upfront lumpectomy. She will schedule with Dr. Magana and I will meet with her 2 weeks post operatively todiscuss pathology results and adjuvant therapy options. ---- Reason for Consultation: Palpable right breast mass--biopsy in December 2021 shows invasive ductal carcinoma (provisional grade 2) ER 95%, KY 95%, Her-2 equivocal IHC 1+ with equivocal FISH(HER2/CEP 17 1.4; Her2 copy number 4.0). Discussion of options for possible neoadjuvant therapy vs. upfront surgery. ORIGINAL CONSULT: 01/29/2022: This is a 62 year old female with minimal comorbidities who noted a fullness of right upper outer quadrant of breast--nontender, no skin erythema or dimpling, no nipple deviation or discharge, no obvious axillary fullness. She is , age 29 with first . Postmenopausal--no prior hysterectomy or oophorectomy, no history of hormone replacement therapy. + family history of a maternal aunt with breast cancer ( in 90s of natural causes). No family history of ovarian or other cancers. I reviewed her [facility] mammography 12/25/21 and ultrasound 01/01/2022 reports. Breast mass is about 3.6cm in greatest dimension on US (3.8 cm on mammogram). US guided breast biopsy on 01/01/2022 revealed invasive ductal carcinoma (provisional grade 2) ER 95%, KY 95%, Her-2 equivocal IHC 1+ with equivocal FISH (HER2/CEP 17 1.4; Her2 copy number 4.0). I discussed the case initially with Dr. Magana prior to referral and I discussed results above with the patient and her . Due to equivocal results of initial HER2 studies on breast biopsy, I recommended right axillary US with biopsy. If no enlarged axillary LN or axilla biopsy negative for cancer, she may proceed with upfront surgery. If biopsy is + for cancer, especially if Her2 positive, she should return to consent for neoadjuvant chemotherapy with TCHP. Following her US and biopsy within the next week, I will discuss her case at [facility] tumor board 02/03/2022 then coordinate phone followup to discuss multidisciplinary planof care. DIAGNOSIS: New diagnosis right upper inner quadrant breast cancer 3.6cm primary by US (clinical T2 Nx Mx) --01/01/2022 biopsy: invasive ductal carcinoma (provisional grade 2) ER 95%, KY 95%, Her-2 equivocal IHC 1+ with equivocal FISH (HER2/CEP 17 1.4; Her2 copy number 4.0). --02/18/2022 lumpectomy with sentinel lymph node biopsy: Invasive Lobular Carcinoma, Lynda histologic score 8/9 (score 3), size 50mm, margins negative for carcinoma, ER 95%, KY 95%, Her2 1+ by IHC, negative. 2 sentinel lymph nodes negative for involvement by tumor. pT2 pN0 Mx. - Summary of Therapies Summary of Therapies: 02/18/2022 Right breast lumpectomy with sentinel lymph node biopsy. 04/01/2022: Oncotype results 18 therefore no indication for adjuvant chemotherapy. 04/24-05/20/2022: Completed Adjuvant radiation 4,005 cGy left breast (15 fractions over 20 days) and 1,000 cGy boost to cavity (4 fractions over 5 days) 05/21/2022: Anastrozole 1 mg daily to complete 5-year course. * 02/19/2023: HELD anastrazole x 2 weeks due to grade 2 myalgias/arthralgias * Resumed 03/02/2023- 03/12/2023 * 03/12/2023: HOLD again (advise 4 weeks) - if improvement - will need to addresschanging to Letrozole vs Tamoxifen ROS Details: All systems reviewed & no additional complaints except as documented Subjective/ROS - Narrative: CONSTITUTIONAL: Negative for fatigue, negative for fever or night sweats. HEAD AND NECK: Negative for changes in hearing and vision. Negative for mouth ulcers, nasal congestion and nasal drainage. PULMONARY: Negative for chest pain, cough and dyspnea. CARDIOVASCULAR: Negative for claudication and irregular heartbeat/palpitations. GASTROINTESTINAL: Negative for abdominal pain, constipation, decreased appetite,diarrhea and vomiting. GENITOURINARY: Negative for dysuria and hematuria. ENDOCRINE: Negative for cold intolerance and heat intolerance--no hot flashes onanastrozole therapy. Right upper inner quadrant palpable mass since 10/2021, nowwell-healed since lumpectomy 02/18 then evacuation of hematoma 03/07/2022. CENTRAL NERVOUS SYSTEM: Negative for gait disturbance and headache. PSYCHIATRIC: Negative for anxiety or depression. DERMATOLOGICAL: Negative for pruritus and rash. Negative for suspicious skin lesions. No skin discoloration or dimpling over left breast. MUSCULOSKELETAL: Significant arthralgias/myalgias on anastrazole; tolerable for the time being; Negative for back pain or joint symptoms. HEMATOLOGICAL: Negative for bleeding and easy bruising. Negative for history of transfusion or thromboembolic disease ALLERGY: Negative for environmental allergies and food allergies. [facility] - Medical History Medical History: Medical History (Last Reviewed 01/01/23 @ 08:39 by Lisa Hennessy MD) Breast cancer current rt Smoker - Surgical History Surgical History: Surgical History (Last Updated 02/19/23 @ 14:39 by Lamar Barba) H/O lumpectomy 01/2022 H/O splenectomy H/O tubal ligation History of lumpectomy of right breast -benign History of right salpingo-oophorectomy 01/21/2023 Hx of appendectomy Hx of tonsillectomy Status post laparoscopy with lysis of adhesions 01/21/2023 Status post total abdominal hysterectomy 01/21/2023 - Family History Family History: Family History (Last Reviewed 01/01/23 @ 08:39 by Lisa Hennessy MD) Father Liver cancer Diabetes Mother Hypertension Diabetes Heart disease Sister Diabetes - Social History Smoking Status: Former smoker Tobacco Type: cigarettes Substance Use Type: Alcohol Home Medications & Allergies Allergies penicillin G Adverse Reaction (Verified 12/31/22 13:20) convulsions Home Medications anastrozole 1 mg tablet 1 mg PO DAILY 90 days #90 tabs 06/11/22 [Rx Confirmed 03/12/23] calcium 500 mg tablet 1,000 mg PO DAILY 09/11/22 [History Confirmed 03/12/23] cholecalciferol (vitamin D3) 25 mcg (1,000 unit) tablet (Vitamin D3) 25 mcg PO DAILY 09/11/22 [History Confirmed 03/12/23] ibuprofen 800 mg tablet 800 mg PO TID 03/12/23 [History Confirmed 03/12/23] oxycodone 5 mg tablet 5 mg PO Q6H PRN Pain 03/12/23 [History Confirmed 03/12/23] Objective - Resuscitation Status Resuscitation Status: Full Code - Height/Weight Height/Weight: Height 5 ft 5 in Weight 75.614 kg - Vital Signs Vital Signs: 03/12/23 13:02 Temperature 98.8 F Pulse Rate [Left Brachial] 55 L Respiratory Rate 18 Blood Pressure [Left Arm] 174/86 H 02 Sat by Pulse Oximetry 99 Oxygen Delivery Method Room Air - Pain Generalized Pain Intensity: 7 Physical Exam Narrative: CONSTITUTIONAL: The patient is in no acute distress. HEAD / FACE: Normocephalic. EYES: Pupils are equal and reactive to light. Conjunctivae and lids are benign in appearance. Ocular movement intact. EARS: Hearing grossly intact. Limited BREAST EXAM: Right breast well healed incision without mass right upperinner quadrant. No skin erythema or dimpling. No nipple discharge or deviation NOSE / MOUTH / THROAT: Nose, mouth, tongue and oropharynx are benign in appearance. No signs of inflammation. NECK / THYROID: Neck is supple. Thyroid is symmetrical, without thyromegaly, masses or palpable nodules. LYMPHATIC: No palpable cervical, supraclavicular, infraclavicular, or inguinal adenopathy. No left axillary adenopathy. Resolved fullness right axilla. RESPIRATORY: Normal to inspection. Lungs clear to auscultation and percussion. No wheezing, rales, rhonchi or rubs. Normal effort. CARDIOVASCULAR: Regular rate and rhythm. No murmurs, gallops, or rubs. VASCULAR: Carotid, radial, femoral and pedal pulses present bilaterally. No bruits. ABDOMEN: Bowel sounds normoactive. Soft, nontender and non-distended. No hepatosplenomegaly. No masses. GENITOURINARY: No CVA tenderness. No suprapubic fullness or tenderness. No groinadenopathy. INTEGUMENTARY: The skin is unremarkable. No rashes. No suspicious lesions BACK / SPINE: The back is nontender. MUSCULOSKELETAL: Normal musculature, bilateral shoulder tenderness; diffuse tenderness in bilateral proximal upper extremities; synovitis involving bilateral 1st-3rd MCP's. EXTREMITIES: No edema, cyanosis or clubbing. No Merle sign. NEUROLOGICAL: Alert and oriented. Cranial nerves intact. No gross motor or sensory deficits. PSYCHIATRIC: No anxiety or evidence of depression. - ECOG Performance Status ECOG Score: 1 Assessment and Plan - TNM Staging Staging: Right upper inner quadrant breast cancer 3.6cm primary by US (clinical T2 Nx Mx) --02/18/2022: Right lumpectomy/sentinel lymph node biopsy now Invasive Lobular Carcinoma, Lynda histologic score 8/9 (score 3), size 50mm, margins negative for carcinoma, ER 95%, KY 95%, Her2 1+ by IHC, negative. 2 sentinel lymph nodes negative for involvement by tumor. pT2 pN0 Mx. (1) Malignant neoplasm of upper-inner quadrant of right breast in female, estrogen receptor positive This is a now 62 year old female with minimal comorbidities who noted a fullnessof right upper outer quadrant of breast in October 2021. Subsequent mammogram, US, and biopsy confirmed a 3.6cm invasive ductal carcinoma (provisional grade 2)ER 95%, KY 95%, Her-2 equivocal IHC 1+ with equivocal FISH (HER2/CEP 17 1.4; Her2 copy number 4.0). I discussed the case initially with Dr. Magana prior to referral and I discussed results above with the patient and her . Due to equivocal results of initial HER2 studies on breast biopsy, I recommended right axillary US with biopsy. If no enlarged axillary LN or axilla biopsy negative for cancer, she may proceed with upfront surgery. If biopsy is + for cancer, especially if Her2 positive, she should return to consent for neoadjuvant chemotherapy with TCHP. Following her US and biopsy within the next week, I will discuss her case at [facility] tumor board 02/03/2022 then coordinate phone followup to discuss multidisciplinary plan of care. High complexity visit--60 min face to face, 30 min to review outside records andcoordinate tumor board discussion of plan. 03/14/2022: Here for followup after right breast lumpectomy/sentinel lymph node on 02/18/2022. She had evacuation of post op hematoma on 03/07/2022. We reviewedpathology showing Invasive Lobular Carcinoma, Lynad histologic score 8/9 (score 3), size 50mm, margins negative for carcinoma, ER 95%, KY 95%, [facility]. 2 sentinel lymph nodes negative for involvement by tumor. pT2 pN0 Mx. ----Today we discussed Oncotype Dx testing due to high grade ER+, KY+, Her2 negative cancer. She understands that if low risk, we would recommend referrralfor radiation therapy followed by hormonal therapy. If high risk recurrence score, we will discuss the benefit of adjuvant chemotherapy prior to radiation and hormonal therapy. She will return in 2 weeks to review Oncotype Dx results. 04/02/2022: Oncotype DX results reviewed. Recurrence score is 18 consistent witha 9-year recurrence rate of 5% if the patient is on appropriate hormonal therapyfollowing radiation. No benefit to chemotherapy. We discussed referral to radiation oncology and subsequent options for hormonal therapy. Since the patient still has uterus in place, aromatase inhibitor is favored over tamoxifen. We discussed side effects of aromatase inhibitors and patient will proceed with anastrozole 1 mg daily for 1 month trial following her radiation therapy. She will follow-up with me in about 8 to 10 weeks after completion of radiation therapy and 4 weeks of anastrozole for review of tolerance. Goal 5 to7 years of adjuvant aromatase inhibitor therapy. Moderate complexity followup 30 minutes to discuss Oncotype Dx results. 06/11/2022: Here for followup after radiation completed in late April 2022, then started anastrozole 1mg daily. Denies hot flashes, myalgias or arthralgiason anastrozole. We reviewed baseline DEXA scan with bilateral femoral neck osteopenia, normal lumbar spine T-score. We discussed continuing anastrozole for a total of 5-7 year course and adding calcium and vitamin D 2 tabs daily. Followup DEXA in 2 years (03/2024). Next f/u with [facility] as well as Dr. Magana for surveillance. 09/11/2022: Denia is here for interval 3-month follow-up on adjuvant endocrine therapy with anastrozole for early stage, hormone positive breast cancer. She denies any significant hot flashes or fatigue. She does not some increased arthralgias in the shoulders, elbows, wrists and knees since starting anastrazole. She takes Ibuprofen as needed and reports this to be tolerable for the time being. She is due for next mammogram in December 2022. Saw Dr. Magana 1 month ago on 08/04/2022 with normal exam. She reports no other changes or concerns. No changes on self breast exam or new areas of pain. - will follow up in ~ 4 months after next bilateral diagnostic mammogram. - she will see Dr. Magana again in about 8 weeks in October 2022. 01/01/2023: Denia is here for 4-month follow-up on endocrine therapy anastrozolefor early-stage hormone positive breast cancer. No new symptoms on anastrozole therapy and myalgias are well controlled. Mammogram was reviewed with no evidence of recurrence and she has no findings of recurrence on exam. We will extend her follow-up to 6 months since she is also following with Dr. Magana of general surgery every 3 to 4 months. 02/19/2023: Denia is here for add on visit; just seen about 6-7 weeks ago with no evidence of recurrence - negative mammogram. She was added on today due to concerns and untoward side effects related to her adjuvant endocrine therapy with anastrazole. Of note, she was started on anastrazole in April 2022. She was in her usual state of health until January 21, 2023 when she experienced severe, stabbing right lower quadrant abdominal pain that prompted urgent evaluation in the emergency department. Upon further work-up, she was found to have a very large right adnexal mass measuring ~ 13 cm. She was urgently transferred to [facility] and underwent total hysterectomy, bilateral salpingo-oophorectomy and lysis of adhesions on January 21, 2023. 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 Upon discharge from the hospital she has noted more significant hot flashes, fatigue and arthralgias associated with her AI therapy. Initially, she seems to have done well with anastrazole but has just not been the same since having her surgery 1 month ago. Otherwise, no changes on self breast exam, new bony pain, weight loss, abdominal pain, nausea/vomiting orheadaches. Keep same follow up as previously scheduled for June 2023. Will hold anastrazole x 2 weeks given her recent surgery and see if her side effects improve. Will restart thereafter, not yet ready to switch to Letrozole. If return of symptoms or increased in severity; she will notify us sooner and we may trial change in therapy from anastrazole to letrozole. 03/12/2023: No significant changes, no breast changes since last office visit 3 weeks ago. Saw surgery, Dr. Magana on 02/04/2023. Had negative mammogram on December 29, 2022. (2) Aromatase inhibitor-associated arthralgia 03/12/2023: Noted about 30% improvement in arthralgias/myalgias with 2 week HOLD of anastrazole. She resumed taking again 1 week ago, on 03/05/2023 and now notes significant discomfort in her lower back, feet, hands (notable synovitis), bilateral shoulders and hip girdle. She is even having to take low dose opioid pain medication in combination with Ibuprofen because of her joint aches/pains. Will HOLD anastrazole for a full 4 weeks and will re-evaluate in clinic in 1 month. In the interim, I will order NM bone scan to rule out any underlying bonypathology and also order ESR/CRP, C[place], Rheumatoid factor, and CCP antibody to assess for any underlying rheumatological process/PMR/inflammation. If work up and bone scan are negative and her symptoms improve off anastrazole; we will need to discuss switching to letrozole vs tamoxifen. 02/19/2023: Increased after surgery for large right adnexal mass; status post total hysterectomy and bilateral salpingo-oophorectomy on 01/21/2023 at the [facility]. 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 Plan: Hold anastrazole x 2 weeks; restart thereafter. Notify clinic sooner than next scheduled appointment if she is having increased issues, side effects. (3) Osteopenia Qualifiers: Osteopenia location: femoral neck Laterality: bilateral Qualified Code(s): M85.851 - Other specified disorders of bone density and structure, right thigh; M85.852 - Other specified disorders of bone density and structure, left thigh Baseline DEXA scan prior to aromatase inhibitor therapy consistent with osteopenia bilateral femoral necks. We will treat with calcium and vitamin D supplementation 2 tabs daily. Next DEXA due: March 2024. (4) Adnexal mass Diagnosed with large right adnexal mass (~ 13 cm) ; status post total hysterectomy and bilateral salpingo-oophorectomy on 01/21/2023 at the [facility]. Pathology returned consistent with benign, mucinous cystoadenoma withno evidence of malignancy. (5) Encounter for monitoring aromatase inhibitor therapy Initially had Overall good tolerance; grade 1 arthralgias; no changes in therapyfor time being. 02/19/2023: Add on visit due to worsening arthralgias, myalgias and hot flashes since hysterectomy and bilateral salpingo-oophorectomy 1 month ago on 01/21/2023. Given recent surgery, advised patient to hold anastrozole x2 weeks to see if her symptoms resolve. We briefly discussed changing therapy to letrozole, although this has much of the same side effect profile as anastrozole; however, some patients report better tolerance with change in therapy. -She does not wish to change from anastrozole quite yet; upon her holding anastrozole x2 weeks-patient will restart and notify the clinic if she feels that she is no longer able to tolerate. If she does okay, she was advised to continue anastrazole and we will follow up with here again in ~ 4 months (as previously scheduled). 03/12/2023: HOLD x 4 weeks- grade 2/3 arthralgias (see plan above) - Chemo Plan Chemo Plan (Dose, Rate, Freq): Anastrozole 1mg daily for 5-7 year course- started April 2022. Goal of Treatment: Curative - Time with Patient Time Spent with Patient (Follow Up Visit): 35 minutes Coordination of Care & Counseling Time: Greater than 50% of time spent with patient was for coordination of care (as documented) and [id number] counseling of patient and/or family. Dictated By: Ciera Vitale APRN DD/ [id number] Signed By: <Electronically signed by ALEX Vitale> 03/12/23 1409 [facility] Work Phone: Progress note Author Ciera Vitale [facility] April 16, 2023 12:52pm Note Date/Time April 16, 2023 12:44pm [facility] [place] [address] Hem/Onc Follow Up Note - OP Signed Patient: Denia Al MR#: [id number] : 1960 Acct:[id number] Age/Sex: 62 / F Type: REG RCR Copies to: MD Howard Kay MD~ Subjective Date/Time of Service: Date of Service: 04/16/2023 Time of Service: 12:37 Chief Complaint: Patient is here for a one month follow up with bone scan for review. Anastrozole held. Patient reports no improvement in joint pain. HPI: 04/16/2023: Denia is here for interval 1 month follow up visit. Has had negative NM bone scan - ordered because of diffuse arthralgias/myalgias. She hasnow been off all endocrine therapy x 6 weeks; with essentially no improvement inher joint symptoms. She is agreeable to go back on anastrazole. In regards to breast cancer; no changes on self exam; had negative mammogram and exam in December 2022. Will see Dr. Magana again on June 15, 2023. She had follow up CT scan of [facility] abdomen/pelvis done at [facility] yesterday. This was done to evaluate her post operatively after large, non malignant adnexal mass was removed on 01/21/2023 at [facility]. Denies weight loss, lymphadenopathy, chest pain, SOB, cough, breast changes. As previously noted, we check RF and CCP antibody - whichwas negative; however, her [place] levels returned abnormal with a relatively high titer level. She was referred to rheumatology on 03/13/2023; but patient noted change in insurance and has not yet seen rheumatology. We will arrange for this to be done again, today. 03/12/2023: Denia is seen again today for add on visit. She was seen about 3 weeks ago with myalgias/arthralgias; felt to be related to anastrazole. We had adiscussion about changing medication vs stopping medication for 2 weeks and restarting. At that time, she elected to hold anastrazole x 2 weeks and restart.She does feel like she had some improvement - maybe 30% improved off anastrazole. She restarted anastrazole 1 week ago and is seen today again due torecurrence of profound myalgias/arthralgias; particularly involving her bilateral shoulders, bilateral hips, low back, feet and bilateral hands. She hasnotable synovitis involving her MCP joints bilaterally and is significantly tender to touch in the shoulders and proximal upper extremities. No history of rheumatological or autoimmune conditions. No changes on self breast exam, deniesweight loss, abdominal pain, lymphadenopathy. 02/19/2023: Denia is here for add on visit; just seen about 6-7 weeks ago with no evidence of recurrence - negative mammogram. She was added on today due to concerns and untoward side effects related to her adjuvant endocrine therapy with anastrazole. Of note, she was started on anastrazole in April 2022. She was in her usual state of health until January 21, 2023 when she experienced severe, stabbing right lower quadrant abdominal pain that prompted urgent evaluation in the emergency department. Upon further work-up, she was found to have a very large right adnexal mass measuring ~ 13 cm. She was urgently transferred to [facility] and underwent total hysterectomy, bilateral salpingo-oophorectomy and lysis of adhesions on January 21, 2023. 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 Upon discharge from the hospital she has noted more significant hot flashes, fatigue and arthralgias associated with her AI therapy. Initially, she seems to have done well with anastrazole but has just not been the same since having her surgery 1 month ago. Otherwise, no changes onself breast exam, new bony pain, weight loss, abdominal pain, nausea/vomiting orheadaches. Last follow up with surgery was 10 days ago, saw Dr. Magana on 02/04/2023. 12/31/2022: Denia is here for 4-month follow-up on endocrine therapy for early- stage hormone positive breast cancer. She is tolerating anastrozole reasonably well without significant hot flashes or fatigue. She does have some occasional joint aches which are stable with use of ibuprofen. No changes on self breast exam and 1 year mammogram did not show any evidence of recurrence. She has regular follow-up with Dr. Magana of general surgery, next evaluation in January. Okay to extend her follow-up from medical oncology to every 6 months or sooner if she has new clinical concerns. 09/11/2022: Denia is here for interval 3-month follow-up on adjuvant endocrine therapy with anastrozole for early stage, hormone positive breast cancer. She denies any significant hot flashes or fatigue. She does not some increased arthralgias in the shoulders, elbows, wrists and knees since starting anastrazole. She takes Ibuprofen as needed and reports this to be tolerable for the time being. She is due for next mammogram in December 2022. Saw Dr. Magana 1 month ago on 08/04/2022 with normal exam. She reports no other changes or concerns. No changes on self breast exam or new areas of pain. 06/11/2022: Denia completed radiation therapy 3 weeks ago with start of anastrozole therapy. She denies any significant hot flashes, arthralgias or myalgias. She has intermittent tenderness in radiation field but no breast or arm lymphedema. Baseline DEXA from 04/10/2022 showed normal bone density (T score -0.6) lumbar spine, osteopenia (T score -1.4 left femoral neck, T score -1.5 right femoral neck) bilateral hips. We are adding calcium with vitamin D and patient may check Vit D level with primary care. Continue anastrozole 1mg daily. OK for 3 month f/u with [facility] and 6 month f/u with me, sooner if new issuesarise. 04/02/2022: Denia is here to review results of Oncotype DX from her original lumpectomy specimen. She has not had any further issues with her seroma. I discussed in detail her recurrence score of 18 which corresponds to a 5% recurrence risk at 9 years and no benefit to chemotherapy with age greater than 50. We discussed typical approach after lumpectomy is to proceed to radiation therapy and she will have consult today. We discussed options for hormonal therapy including tamoxifen versus aromatase inhibitors. She still has intact uterus and there is increased risk of endometrial cancer and thrombosis with tamoxifen and therefore aromatase inhibitor is recommended. We discussed side effects of aromatase inhibitor such as hot flashes, lower bone density, and about 20% incidence of myalgias and arthralgias. She will have baseline DEXA scan and will commence anastrozole 1 mg daily following her radiation therapy. I will see her at the end of 4 weeks of anastrozole to review side effects and to determine if she may continue 5 to 7 years of adjuvant hormonal therapy. Allquestions answered to the patient and her over this 35- minute visit to review Oncotype findings, counseling for radiation and AI therapy. 03/14/2022: Denia completed right upper outer quadrant lumpectomy by Dr. Magana on and is here to review pathology results and recommendations for adjuvant therapy. She had to return to OR for evacuation ofa large hematoma in biopsy cavity on 03/05/2022 and continues followup with Dr. Magana. I reviewed pathology results showing Invasive Lobular Carcinoma, [place] histologic score 8/9 (score 3), size 50mm, margins negative for carcinoma, ER 95%, KY 95%, Her2 1+ by IHC, negative. 2 sentinel lymph nodes negative for involvement by tumor. pT2 pN0 Mx. Interestingly, original pathology was invasive ductal carcinoma (lumpectomy final pathology invasive lobular carcinoma). --No residual fullness or pain at surgical site. Discussed Oncotype Dx--will send pathology for testing and followup in 2 weeks. Moderate complexity 35 minute followup visit. 02/07/2022: Phone followup today to discuss [facility] tumor board discussion forplan with Dr. Magana for invasive ductal carcinoma of right breast. I contacted patient today after discussion in [facility] Tumor Board this am. Right axillary ultrasound was negative for adenopathy. Since HER2 is indeterminate and node negative, we recommended upfront lumpectomy. She will schedule with Dr. Magana and I will meet with her 2 weeks post operatively todiscuss pathology results and adjuvant therapy options. --- - Reason for Consultation: Palpable right breast mass--biopsy in December 2021 shows invasive ductal carcinoma (provisional grade 2) ER 95%, KY 95%, Her-2 equivocal IHC 1+ with equivocal FISH(HER2/CEP 17 1.4; Her2 copy number 4.0). Discussion of options for possible neoadjuvant therapy vs. upfront surgery. ORIGINAL CONSULT: 01/29/2022: This is a 62 year old female with minimal comorbidities who noted a fullness of right upper outer quadrant of breast--nontender, no skin erythema or dimpling, no nipple deviation or discharge, no obvious axillary fullness. She is , age 29 with first . Postmenopausal--no prior hysterectomy or oophorectomy, no history of hormone replacement therapy. + family history of a maternal aunt with breast cancer ( in s of natural causes). No family history of ovarian or other cancers. I reviewed her [facility] mammography 12/25/21 and ultrasound 01/01/2022 reports. Breast mass is about 3.6cm in greatest dimension on US (3.8 cm on mammogram). US guided breast biopsy on 01/01/2022 revealed invasive ductal carcinoma (provisional grade 2) ER 95%, KY 95%, Her-2 equivocal IHC 1+ with equivocal FISH (HER2/CEP 17 1.4; Her2 copy number 4.0). I discussed the case initially with Dr. Magana prior to referral and I discussed results above with the patient and her . Due to equivocal results of initial HER2 studies on breast biopsy, I recommended right axillary US with biopsy. If no enlarged axillary LN or axilla biopsy negative for cancer, she may proceed with upfront surgery. If biopsy is + for cancer, especially if Her2 positive, she should return to consent for neoadjuvant chemotherapy with TCHP. Following her US and biopsy within the next week, I will discuss her case at [facility] tumor board 02/03/2022 then coordinate phone followup to discuss multidisciplinary planof care. DIAGNOSIS: New diagnosis right upper inner quadrant breast cancer 3.6cm primary by US (clinical T2 Nx Mx) --01/01/2022 biopsy: invasive ductal carcinoma (provisional grade 2) ER 95%, KY 95%, Her-2 equivocal IHC 1+ with equivocal FISH (HER2/CEP 17 1.4; Her2 copy number 4.0). --02/18/2022 lumpectomy with sentinel lymph node biopsy: Invasive Lobular Carcinoma, [place] histologic score 8/9 (score 3), size 50mm, margins negative for carcinoma, ER 95%, KY 95%, Her2 1+ by IHC, negative. 2 sentinel lymph nodes negative for involvement by tumor. pT2 pN0 Mx. - Summary of Therapies Summary of Therapies: 02/18/2022 Right breast lumpectomy with sentinel lymph node biopsy. 04/01/2022: Oncotype results 18 therefore no indication for adjuvant chemotherapy. 04/24-05/20/2022: Completed Adjuvant radiation 4,005 cGy left breast (15 fractions over 20 days) and 1,000 cGy boost to cavity (4 fractions over 5 days) 05/21/2022: Anastrozole 1 mg daily to complete 5-year course. * 02/19/2023: HELD anastrazole x 2 weeks due to grade 2 myalgias/arthralgias * Resumed 03/02/2023- 03/12/2023 * 03/12/2023: HOLD again (advise 4 weeks) - if improvement - will need to addresschanging to Letrozole vs Tamoxifen * 04/16/2023: Resume anastrozole. Joint aches/pains unchanged, despite holding therapy x 6 weeks. Negative NM bone scan. Positive [place] and referral to rheumatology. ROS Details: All systems reviewed & no additional complaints except as documented Subjective/ROS - Narrative: CONSTITUTIONAL: Negative for fatigue, negative for fever or night sweats. HEAD AND NECK: Negative for changes in hearing and vision. Negative for mouth ulcers, nasal congestion and nasal drainage. PULMONARY: Negative for chest pain, cough and dyspnea. CARDIOVASCULAR: Negative for claudication and irregular heartbeat/palpitations. GASTROINTESTINAL: Negative for abdominal pain, constipation, decreased appetite,diarrhea and vomiting. GENITOURINARY: Negative for dysuria and hematuria. ENDOCRINE: Negative for cold intolerance and heat intolerance--no hot flashes onanastrozole therapy. Right upper inner quadrant palpable mass since 10/2021, nowwell-healed since lumpectomy 02/18 then evacuation of hematoma 03/07/2022. CENTRAL NERVOUS SYSTEM: Negative for gait disturbance and headache. PSYCHIATRIC: Negative for anxiety or depression. DERMATOLOGICAL: Negative for pruritus and rash. Negative for suspicious skin lesions. No skin discoloration or dimpling over left breast. MUSCULOSKELETAL: Significant arthralgias/myalgias on anastrazole; unchanged despite holding therapy x 6 weeks. HEMATOLOGICAL: Negative for bleeding and easy bruising. Negative for history of transfusion or thromboembolic disease ALLERGY: Negative for environmental allergies and food allergies. [facility] - Medical History Medical History: Medical History (Last Reviewed 01/01/23 @ 08:39 by Lisa Hennessy MD) Breast cancer current rt Smoker - Surgical History Surgical History: Surgical History (Last Updated 02/19/23 @ 14:39 by Lamar Barba) H/O lumpectomy 01/2022 H/O splenectomy H/O tubal ligation History of lumpectomy of right breast -benign History of right salpingo-oophorectomy 01/21/2023 Hx of appendectomy Hx of tonsillectomy Status post laparoscopy with lysis of adhesions 01/21/2023 Status post total abdominal hysterectomy 01/21/2023 - Family History Family History: Family History (Last Reviewed 01/01/23 @ 08:39 by Lisa Hennessy MD) Father Liver cancer Diabetes Mother Hypertension Diabetes Heart disease Sister Diabetes - Social History Smoking Status: Former smoker Tobacco Type: cigarettes Substance Use Type: Alcohol Home Medications & Allergies Allergies penicillin G Adverse Reaction (Verified 12/31/22 13:20) convulsions Home Medications anastrozole 1 mg tablet 1 mg PO DAILY 90 days #90 tabs 06/11/22 [Rx Confirmed 03/12/23] calcium 500 mg tablet 1,000 mg PO DAILY 09/11/22 [History Confirmed 04/16/23] cholecalciferol (vitamin D3) 25 mcg (1,000 unit) tablet (Vitamin D3) 25 mcg PO DAILY 09/11/22 [History Confirmed 04/16/23] ibuprofen 800 mg tablet 800 mg PO TID 03/12/23 [History Confirmed 04/16/23] acetaminophen 500 mg tablet 500 mg PO DIRECTED 04/16/23 [History Confirmed 04/16/23] Objective - Resuscitation Status Resuscitation Status: Full Code - Height/Weight Height/Weight: Height 5 ft 5 in Weight 77.836 kg - Vital Signs Vital Signs: 04/16/23 11:06 Temperature 98.1 F Pulse Rate [Left Brachial] 63 Respiratory Rate 20 Blood Pressure [Left Arm] 131/87 02 Sat by Pulse Oximetry 99 Oxygen Delivery Method Room Air - Pain Generalized Pain Intensity: 6 Physical Exam Narrative: CONSTITUTIONAL: The patient is in no acute distress. HEAD / FACE: Normocephalic. EYES: Pupils are equal and reactive to light. Conjunctivae and lids are benign in appearance. Ocular movement intact. EARS: Hearing grossly intact. Limited BREAST EXAM: Right breast well healed incision without mass right upperinner quadrant. No skin erythema or dimpling. No nipple discharge or deviation NOSE / MOUTH / THROAT: Nose, mouth, tongue and oropharynx are benign in appearance. No signs of inflammation. NECK / THYROID: Neck is supple. Thyroid is symmetrical, without thyromegaly, masses or palpable nodules. LYMPHATIC: No palpable cervical, supraclavicular, infraclavicular, or inguinal adenopathy. No left axillary adenopathy. Resolved fullness right axilla. RESPIRATORY: Normal to inspection. Lungs clear to auscultation and percussion. No wheezing, rales, rhonchi or rubs. Normal effort. CARDIOVASCULAR: Regular rate and rhythm. No murmurs, gallops, or rubs. VASCULAR: Carotid, radial, femoral and pedal pulses present bilaterally. No bruits. ABDOMEN: Bowel sounds normoactive. Soft, nontender and non-distended. No hepatosplenomegaly. No masses. GENITOURINARY: No CVA tenderness. No suprapubic fullness or tenderness. No groinadenopathy. INTEGUMENTARY: The skin is unremarkable. No rashes. No suspicious lesions BACK / SPINE: The back is nontender. MUSCULOSKELETAL: Normal musculature, bilateral shoulder tenderness; diffuse tenderness in bilateral proximal upper extremities; synovitis involving bilateral 1st-3rd MCP's. EXTREMITIES: No edema, cyanosis or clubbing. No Merle sign. NEUROLOGICAL: Alert and oriented. Cranial nerves intact. No gross motor or sensory deficits. PSYCHIATRIC: No anxiety or evidence of depression. - ECOG Performance Status ECOG Score: 0 Results - Labs Labs: Diagram of Most Recent CBC and CMP 03/12/23 14:15 03/12/23 14:15 Assessment and Plan - TNM Staging Staging: Right upper inner quadrant breast cancer 3.6cm primary by US (clinical T2 Nx Mx) --02/18/2022: Right lumpectomy/sentinel lymph node biopsy now Invasive Lobular Carcinoma, [place] histologic score 8/9 (score 3), size 50mm, margins negative for carcinoma, ER 95%, KY 95%, Her2 1+ by IHC, negative. 2 sentinel lymph nodes negative for involvement by tumor. pT2 pN0 Mx. (1) Malignant neoplasm of upper-inner quadrant of right breast in female, estrogen receptor positive This is a now 62 year old female with minimal comorbidities who noted a fullnessof right upper outer quadrant of breast in October 2021. Subsequent mammogram, US, and biopsy confirmed a 3.6cm invasive ductal carcinoma (provisional grade 2)ER 95%, KY 95%, Her-2 equivocal IHC 1+ with equivocal FISH (HER2/CEP 17 1.4; Her2 copy number 4.0). I discussed the case initially with Dr. Magana prior to referral and I discussed results above with the patient and her . Due to equivocal results of initial HER2 studies on breast biopsy, I recommended right axillary US with biopsy. If no enlarged axillary LN or axilla biopsy negative for cancer, she may proceed with upfront surgery. If biopsy is + for cancer, especially if Her2 positive, she should return to consent for neoadjuvant chemotherapy with TCHP. Following her US and biopsy within the next week, I will discuss her case at [facility] tumor board 02/03/2022 then coordinate phone followup to discuss multidisciplinary plan of care. High complexity visit--60 min face to face, 30 min to review outside records andcoordinate tumor board discussion of plan. 03/14/2022: Here for followup after right breast lumpectomy/sentinel lymph node on 02/18/2022. She had evacuation of post op hematoma on 03/07/2022. We reviewedpathology showing Invasive Lobular Carcinoma, [place] histologic score 8/9 (score 3), size 50mm, margins negative for carcinoma, ER 95%, KY 95%, [facility]. 2 sentinel lymph nodes negative for involvement by tumor. pT2 pN0 Mx. ----Today we discussed Oncotype Dx testing due to high grade ER+, KY+, Her2 negative cancer. She understands that if low risk, we would recommend referrralfor radiation therapy followed by hormonal therapy. If high risk recurrence score, we will discuss the benefit of adjuvant chemotherapy prior to radiation and hormonal therapy. She will return in 2 weeks to review Oncotype Dx results. 04/02/2022: Oncotype DX results reviewed. Recurrence score is 18 consistent witha 9-year recurrence rate of 5% if the patient is on appropriate hormonal therapyfollowing radiation. No benefit to chemotherapy. We discussed referral to radiation oncology and subsequent options for hormonal therapy. Since the patient still has uterus in place, aromatase inhibitor is favored over tamoxifen. We discussed side effects of aromatase inhibitors and patient will proceed with anastrozole 1 mg daily for 1 month trial following her radiation therapy. She will follow-up with me in about 8 to 10 weeks after completion of radiation therapy and 4 weeks of anastrozole for review of tolerance. Goal 5 to7 years of adjuvant aromatase inhibitor therapy. Moderate complexity followup 30 minutes to discuss Oncotype Dx results. 06/11/2022: Here for followup after radiation completed in late April 2022, then started anastrozole 1mg daily. Denies hot flashes, myalgias or arthralgiason anastrozole. We reviewed baseline DEXA scan with bilateral femoral neck osteopenia, normal lumbar spine T-score. We discussed continuing anastrozole for a total of 5-7 year course and adding calcium and vitamin D 2 tabs daily. Followup DEXA in 2 years (03/2024). Next f/u with [facility] as well as Dr. Magana for surveillance. 09/11/2022: Denia is here for interval 3-month follow-up on adjuvant endocrine therapy with anastrozole for early stage, hormone positive breast cancer. She denies any significant hot flashes or fatigue. She does not some increased arthralgias in the shoulders, elbows, wrists and knees since starting anastrazole. She takes Ibuprofen as needed and reports this to be tolerable for the time being. She is due for next mammogram in December 2022. Saw Dr. Magana 1 month ago on 08/04/2022 with normal exam. She reports no other changes or concerns. No changes on self breast exam or new areas of pain. - will follow up in ~ 4 months after next bilateral diagnostic mammogram. - she will see Dr. Magana again in about 8 weeks in October 2022. 01/01/2023: Denia is here for 4-month follow-up on endocrine therapy anastrozolefor early-stage hormone positive breast cancer. No new symptoms on anastrozole therapy and myalgias are well controlled. Mammogram was reviewed with no evidence of recurrence and she has no findings of recurrence on exam. We will extend her follow-up to 6 months since she is also following with Dr. Magana of general surgery every 3 to 4 months. 02/19/2023: Denia is here for add on visit; just seen about 6-7 weeks ago with no evidence of recurrence - negative mammogram. She was added on today due to concerns and untoward side effects related to her adjuvant endocrine therapy with anastrazole. Of note, she was started on anastrazole in April 2022. She was in her usual state of health until January 21, 2023 when she experienced severe, stabbing right lower quadrant abdominal pain that prompted urgent evaluation in the emergency department. Upon further work-up, she was found to have a very large right adnexal mass measuring ~ 13 cm. She was urgently transferred to [facility] and underwent total hysterectomy, bilateral salpingo-oophorectomy and lysis of adhesions on January 21, 2023. 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 Upon discharge from the hospital she has noted more significant hot flashes, fatigue and arthralgias associated with her AI therapy. Initially, she seems to have done well with anastrazole but has just not been the same since having her surgery 1 month ago. Otherwise, no changes onself breast exam, new bony pain, weight loss, abdominal pain, nausea/vomiting orheadaches. Keep same follow up as previously scheduled for June 2023. Will hold anastrazole x 2 weeks given her recent surgery and see if her side effects improve. Will restart thereafter, not yet ready to switch to Letrozole. If return of symptoms or increased in severity; she will notify us sooner and we may trial change in therapy from anastrazole to letrozole. 03/12/2023: No significant changes, no breast changes since last office visit 3 weeks ago. Saw surgery, Dr. Mgaana on 02/04/2023. Had negative mammogram on December 29, 2022. 04/16/2023: Denia is here for interval 1 month follow up visit. Has had negative NM bone scan - ordered because of diffuse arthralgias/myalgias. She hasnow been off all endocrine therapy x 6 weeks; with essentially no improvement inher joint symptoms. She is agreeable to go back on anastrazole. In regards to breast cancer; no changes on self exam; had negative mammogram and exam in December 2022. Will see Dr. Magana again on June 15, 2023. She had follow up CT scan of the abdomen/pelvis done at [facility] yesterday. This was done to evaluate her post operatively after large, non malignant adnexal mass was removed on 01/21/2023 at [facility]. She was told her CT scan showed something with kidney and she was advised to follow up with her PCP - Dr. Schumacher. Will request report. Denies weight loss, lymphadenopathy, chest pain, SOB, cough, breast changes. As previously noted, we check RF and CCP antibody - which was negative; however, her [place] levels returned abnormal with a relatively high titerlevel. She was referred to rheumatology on 03/13/2023; but patient noted change in insurance and has not yet seen rheumatology. We will arrange for this to be done again, today. o case discussed with Dr. Hennessy. No further interventions, as patient will plan on going back on AI therapy with anastrozole. o referral to rheum for positive [place] with relatively high titer (1:320), diffusepolyarthralgias, morning stiffness >1 hour. o next breast cancer follow up in 4 months. Next mammogram due: December 2023. o continue every 4 month follow up with Dr. Magana - next appt is 06/15/2023 (2) Aromatase inhibitor-associated arthralgia 04/16/2023: No changes in joint aches/pains despite holding AI therapy x 6 weeks.Patient is agreeable to go back on therapy, actually she prefers to, stating that she knows know that the pill isn't what is making her feel bad. Negative NMbone scan - positive [place]. 03/12/2023: Noted about 30% improvement in arthralgias/myalgias with 2 week HOLD of anastrazole. She resumed taking again 1 week ago, on 03/05/2023 and now notes significant discomfort in her lower back, feet, hands (notable synovitis), bilateral shoulders and hip girdle. She is even having to take low dose opioid pain medication in combination with Ibuprofen because of her joint aches/pains. Will HOLD anastrazole for a full 4 weeks and will re-evaluate in clinic in 1 month. In the interim, I will order NM bone scan to rule out any underlying bonypathology and also order ESR/CRP, [place], Rheumatoid factor, and CCP antibody to assess for any underlying rheumatological process/PMR/inflammation. If work up and bone scan are negative and her symptoms improve off anastrazole; we will need to discuss switching to letrozole vs tamoxifen. 02/19/2023: Increased after surgery for large right adnexal mass; status post total hysterectomy and bilateral salpingo-oophorectomy on 01/21/2023 at the [facility]. 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 Plan: Hold anastrazole x 2 weeks; restart thereafter. Notify clinic sooner than next scheduled appointment if she is having increased issues, side effects. (3) Osteopenia Qualifiers: Osteopenia location: femoral neck Laterality: bilateral Qualified Code(s): M85.851 - Other specified disorders of bone density and structure, right thigh; M85.852 - Other specified disorders of bone density and structure, left thigh Baseline DEXA scan prior to aromatase inhibitor therapy consistent with osteopenia bilateral femoral necks. We will treat with calcium and vitamin D supplementation 2 tabs daily. Next DEXA due: March 2024. (4) Adnexal mass Diagnosed with large right adnexal mass (~ 13 cm) ; status post total hysterectomy and bilateral salpingo-oophorectomy on 01/21/2023 at the [facility]. Pathology returned consistent with benign, mucinous cystoadenoma withno evidence of malignancy. (5) Encounter for monitoring aromatase inhibitor therapy Initially had Overall good tolerance; grade 1 arthralgias; no changes in therapyfor time being. 02/19/2023: Add on visit due to worsening arthralgias, myalgias and hot flashes since hysterectomy and bilateral salpingo-oophorectomy 1 month ago on 01/21/2023. Given recent surgery, advised patient to hold anastrozole x2 weeks to see if her symptoms resolve. We briefly discussed changing therapy to letrozole, although this has much of the same side effect profile as anastrozole; however, some patients report better tolerance with change in therapy. -She does not wish to change from anastrozole quite yet; upon her holding anastrozole x2 weeks-patient will restart and notify the clinic if she feels that sheis no longer able to tolerate. If she does okay, she was advised to continue anastrazole and we will follow up with here again in ~ 4 months (as previously scheduled). 03/12/2023: HOLD x 4 weeks- grade 2/3 arthralgias (see plan above) 04/16/2023: RESUME anastrozole - follow up with rheumatology. Plan to continue therapy for at least 5 years through April 2027. - Chemo Plan Chemo Plan (Dose, Rate, Freq): Anastrozole 1mg daily for 5-7 year course- started April 2022. Goal of Treatment: Curative - Time with Patient Time Spent with Patient (Follow Up Visit): 35 minutes Coordination of Care & Counseling Time: Greater than 50% of time spent with patient was for coordination of care (as documented) and [id number] counseling of patient and/or family. Dictated By: Ciera Vitale APRN DD/ 1237 Signed By: <Electronically signed by ALEX Vitale> 04/16/23 1252 [facility] Work Phone: Chief Complaint and Reason for Visit Chief Complaint Invasive ductal carc daria right breast Right Breast Cacner Right Breast Cacner Reason for Visit [id number] Chief Complaint Right Breast Cacner Right Breast Cacner Right Breast Cacner hematoma right breast hematoma right breast Invasive ductal carcima right breast Reason for Visit [id number] Chief Complaint Invasive ductal carc daria right breast Reason for Visit Encounter for monito ring aromatase inhibitor therapy [id number] Osteopenia Screening for osteoporosis Chief Complaint Invasive ductal carc daria right breast Reason for Visit Adnexal mass Aromatase inhibitor-associated arthralgia Encounter for monitoring aromatase inhibitor therapy [id number] Osteopenia Screening for osteoporosis Chief Complaint Invasive ductal carc daria right breast Follow UP Reason for Visit Adnexal mass Aromatase inhibitor-associated arthralgia Encounter for monitoring aromatase inhibitor therapy [id number] Osteopenia Screening for osteoporosis Aromatase inhibitor-associated arthralgia History of bilateral salpingo-oophorectomy Encounter for monitoring aromatase inhibitor therapy [id number] Osteopenia Chief Complaint Admit Date Follow Up August 22, 2024 9 :13am Reason for Visit Admit Date Adnexal mass August 22, 2024 9 :13am Aromatase inhibitor-associated arthralgi a August 22, 2024 9:13am Encounter for monitoring aromatase inhib itor therapy August 22, 2024 9:13am Malignant neoplasm of upper- inner quadrant of right breast in female, estro August 22, 2024 9:13am Osteopenia August 22, 2024 9 :13am Screening for osteoporosis August 22, 2024 9:13am History of bilateral salpingo-oophorecto my August 22, 2024 9:13am Family History No Family History Records Found Relationship Condition Age at Onset Recorded Date/T colin father Malignant neoplasm of liver Unknown Diabetes mellitus Unknown Not Specified Hypertension Unknown Heart disease Unknown sister Diabetes mellitus Unknown Relationship Condition Age at Onset Recorded Date/T colin father Malignant neoplasm of liver Unknown Diabetes mellitus Unknown mother Hypertension Unknown Heart disease Unknown sister Diabetes mellitus Unknown Advance Directives No Advanced Directives Records Found Advance Directive Response Recorded Date/ Time Advance Directives No Liz 28th, 20 22 8:37am Advance Directive Response Recorded Date/ Time Advance Directives No January 21 7:37am Summary Purpose Additional Source Comments Care Teams (unrecognized sec tion and content) Team Status: Active Member Role Status Dates Howard Schumacher MD Primary Care Provider Active Team Status: Inactive Member Role Status Dates Howard Schumacher MD Primary Care Provider Active S tart: August 22, 2024 End: August 22, 2024 Meena Lucero APRN Attending Provider Active Start: August 22, 2024 End: August 22, 2024 Team Status: Inactive Member Role Status Dates Howard Schumacher MD Primary Care Provider Active Tone Magana DO Attending Provider Active Team Status: Active Member Role Status Dates Lisa Hennessy MD Attending Provider Active Howard Schumacher MD Primary Care Provider, Referring Pro vider Active Team Status: Active Member Role Status Dates Lisa Hennessy MD Attending Provider, Referring Provider Active Howard Schumacher MD Primary Care Provider Active Team Status: Active Member Role Status Dates Lisa Hennessy MD Attending Provider, Referring Provider Active Howard Schumacher MD Primary Care Provider Active Kylee Lindsay MD Active Team Status: Inactive Member Role Status Dates Howard Schumacher MD Primary Care Provider Active Jacinto Mcnulty DO Attending Provider Active Team Status: Active Member Role Status Dates Lisa Hennessy MD Attending Provider, Referring Provider Active Start: February 11, 2024 Howard Schumacher MD Primary Care Provider Active S tart: February 11, 2024 Team Status: Inactive Member Role Status Dates Howard Schumacher MD Primary Care Provider Active S tart: February 11, 2024 End: February 11, 2024 Lisa Hennessy MD Attending Provider Active Start: February 11, 2024 End: February 11, 2024 Rattling Machine Tender Relationship Specialty Start Date End Date Howard Schumacher MD [address] [place] [address] PCP - General Family Medicine 09/23/23 Ciera Vitale NP [address] [place] [id number] PCP - Wilner ARMIJO 10/26/23 Howard Schumacher MD [address] [place] [phone] PCP - Devoted 03/27/24 Rattling Machine Tender Relationship Specialty Start Date End Date Howard Schumacher MD [address] [place] [phone] PCP - General Family Medicine 09/23/23 Howard Schumacher MD [address] [place] [phone] PCP - Devoted 03/27/24 Rattling Machine Tender Relationship Specialty Start Date End Date Howard Schumacher MD [address] [place] [phone] PCP - General [facility] Medicine 09/23/23 Howard Schumacher MD [address] [place] [phone] PCP - Devoted 03/27/24 Rattling Machine Tender Relationship Specialty Start Date End Date Howard Schumacher MD [address] [place] [phone] PCP - General Family Medicine 09/23/23 Howard Schumacher MD [address] [place] [phone] PCP - Devoted 03/27/24 Rattling Machine Tender Relationship Specialty Start Date End Date Howard Schumacher MD [address] [place] [phone] PCP - General Family Medicine 09/23/23 Howard Schumacher MD [address] [place] [address] PCP - Devoted 03/27/24 Rattling Machine Tender Relationship Specialty Start Date End Date Howard Schumacher MD [address] [place] [address] PCP - General Family Medicine 09/23/23 Howard Schumacher MD [address] [place] [address] PCP - Devoted 03/27/24 Goals (unrecognized section and content) Goals may be documented in a n alternate sectionGoals may be documented in an alternate sectionGoals may be documented in an alternate sectionGoals may be documented in an alternate sectionGoals may be documented in an alternate sectionGoals may be documented in an alternate sectionGoals may be documented in an alternate sectionGoals may be documented in an alternate sectionGoals may be documented in an alternate sectionGoals may be documented in an alternate section INFORMATION SOURCE (unrecogn ized section and content) DATE CREATED AUTHOR [facility]/22/2022 [facility] DATE CREATED AUTHOR AUTHOR'S ORGANIZ ATION 08/14/2024 [facility] EPIC DATE CREATED AUTHOR AUTHOR'S ORGANIZ ATION 08/22/2024 [facility] Reason for Visit (unrecogniz ed section and content) Reason Comments 2nd poy Rt. lumpectomy Mamms done in [place] Reason Comments Toenail Care Non dm nail care Ingrown Toenail Lt 2nd Reason Comments Follow-up 6 m Reason Comments Follow-up 14d s/p lt 2nd ingro wn FOR RECORDS PERTAINING TO PATIENTS WHO ARE OR HAVE BEEN ENROLLED IN A CHEMICAL DEPENDENCY/SUBSTANCEABUSE PROGRAM, SOME INFORMATION MAY BE OMITTED. This clinical summary was aggregated from multiple sources. Caution should be exercised in using it in the provision of clinical care. This summary normalizes information from multiple sources, and as a consequence, information in this document may materially change the coding, format and clinical context of patient data. In addition, data may be omitted in some cases. CLINICAL DECISIONS SHOULD BE BASED ON THE PRIMARY CLINICAL RECORDS. [facility] [employer] [facility]. provides no warranty or guarantee of the accuracy or completeness of information in this document.
[2024-09-15 09:41] LABS: Basophils Absolute Auto 0.1 10^3/uL (0.0-0.1); Basophils Percent Auto 2.2 % (0.2-2.0); Eosinophils Absolute Auto 0.4 10^3/uL (0.0-0.7); Eosinophils Percent Auto 9.4 % (0.9-7.0); Hematocrit 42.4 % (36.0-48.0); Hemoglobin 14.3 g/dL (12.0-16.0); Immature Granulocytes Abs Auto 0.01 10^3/uL (0.00-0.03); Immature Granulocytes Pct Auto 0.2 % (0.0-0.5); Lymphocytes Absolute Auto 1.8 10^3/uL (1.2-3.8); Lymphocytes Percent Auto 43.8 % (20.5-60.0); Mean Corpuscular HGB Conc 33.7 g/dL (29.9-35.2); Mean Corpuscular Hemoglobin 32.9 pg (26.7-34.0); Mean Corpuscular Volume 97.5 fL (81.0-99.0); Monocytes Absolute Auto 0.5 10^3/uL (0.3-0.8); Neutrophils Absolute Auto 1.4 10^3/uL (1.4-6.5); Neutrophils Percent Auto 32.4 % (43.0-75.0); Platelet Count 310 10^3/uL (150-450); Red Blood Count 4.35 10^6/uL (4.20-5.40); Red Cell Distribution Width 12.7 % (11.0-15.0); White Blood Count 4.2 10^3/uL (4.0-11.0)
--- OUTSIDE RECORDS SUMMARY | 2024-09-15 09:57 | XMS_ITS | CCD ---
Author Organization [facility] Care Team Providers Care Records Technician Name Role Phone MD Lisa Hennessy Attending Provider MD Howard Schumacher Primary Care Provider [phone] MD Howard Schumacher Referring Provider [phone] DO Tone Magana Attending Provider [phone] MD Howard Schumacher Primary Care Provider MD Lisa Hennessy Attending Provider MD Howard Schumacher Referring Provider [phone] MD Lisa Hennessy Attending Provider [phone] MD Lisa Hennessy Referring Provider [phone] ENDY, DR HOWARD Otto Primary Care Unavailable [place], DR Oreilly Consulting Unavailable NADERER, DR HOWARD Otto Admitting Unavailable NADERER, DR HOWARD Otto Attending Unavailable NADERER, DR HOWARD Otto Consulting Unavailable NADERETre, DR HOWARD Otto Primary Care Unavailable NADERETre, DR HOWARD Otto Admitting Unavailable NADERETre, DR HOWARD Otto Attending Unavailable NADERETre, DR HOWARD Otto Consulting Unavailable NADERETre, DR HOWARD Otto Primary Care Unavailable NADERER, DR HOWARD Otto Admitting Unavailable ZIEBER, DR CORBIN [place] Consulting Unavailable NADERETre, DR HOWARD Otto Attending Unavailable NADBELLA, DR HOWARD Otto Consulting Unavailable MD Lisa Hennessy Attending Provider MD Lisa Hennessy Referring Provider MD Howard Schumacher Primary Care Provider MD Lisa Hennessy Attending Provider MD Lisa Hennessy Referring Provider [phone] MD Howard Schumacher Primary Care Provider [phone] MD Lisa Hennessy Attending Provider MD Lisa Hennessy Referring Provider MD Howard Schumacher Primary Care Provider MD Lisa Hennessy Attending Provider MD Lisa Hennessy Referring Provider MD Howard Schumacher Primary Care Provider [phone] MD Lisa Hennessy Attending Provider MD Lisa Hennessy Referring Provider MD Howard Schumacher Primary Care Provider MD Lisa Hennessy Attending Provider MD Lisa Hennessy Referring Provider MD Howard Schumacher Primary Care Provider DO Jacinto Mcnulty Attending Provider MD Lisa Hennessy Attending Provider MD Lisa Hennessy Referring Provider MD Howard Schumacher Primary Care Provider Howard Schumacher MD Primary Care Provider Iam ADVENTURE GUIDE, [facility] Unavailable Howard Schumacher MD Unavailable TONE MAGANA [...] Translations: [penicillin G] Drug Allergy 02-10-2022 Unknown [facility] (1 source) Penicillin Drug Allergy 12-25-2021 [facility] Repository Medications Current Medications Medication Drug Class(es) [...] Active docusate sodium 50 mg / sennosides, alf 8.6 mg oral tablet (8 sources) Start: [...] 12:20pm to radiation site daily AFTER radiation [place] (No Known Home Meds) (3 sources) Start: 03-14-2022 [place] (No Kn own Home Meds) Active March [...] on 12-31-2023 MM diagnostic mammo BI w/CAD [facility] [place] [address] Ultrasound Report Signed Patient: Denia Al MR#: [id number] : 1960 Acct:[id number] Age/Sex: 63 / F ADM Date: 12/31/23 Loc: XT [facility]: [facility] Attending Dr: Lisa Hennessy MD Ordering Provider: Lisa Hennessy MD; Ciera Vitale, ALEX Date of Service: 12/31/23 MM/MM diagnostic mammo BI w/CAD: right breast cancer ([id number]) US/US extremity nonvascular: RT AXILLA SWELLING Copies to: MD Ciera Kay, CORPORATE HUMAN RESOURCES MANAGER BILATERAL Diagnostic Full Field digital mammogram with [...] Ricardo Dumas M.D.12/31/2023 12:15 PM Dictation Location: [facility] Tech: Germaniajohnny Brooks Transcribed By: JAYSHREE 12/31/23 1215 Dictated By: Ricardo Dumas DO 12/31/23 1212 Signed By: 12/31/23 1215 Normal [facility] US breast RT limited 09-28 US breast RT limited [facility] [place] [address] Ultrasound Report Signed Patient: Denia Al MR#: [id number] : 1960 Acct:[id number] Age/Sex: 63 / F ADM Date: 09/29/23 Loc: [facility] Room: Type: [facility] Attending Dr: Tone Magana DO Ordering Provider: [...] Ricardo Dumas M.D.09/29/2023 10:58 AM Dictation Location: [facility] Tech: Terrie Brennan Transcribed By: JAYSHREE 09/29/23 1058 Dictated By: Ricardo Dumas DO 09/29/23 1056 Signed By: 09/29/23 1058 Normal [facility] Alanine aminotransferase [En zymatic activity/volume] in Serum or PlasmaOrdered By: Ciera Vitale on 03-12-2023 ALT [Catalytic activity/Vol] 27 U/L 7-52 [facility] Albumin [Mass/volume] in Ser um or Plasma by Bromocresol green (BCG) dye binding methoOrdered By: Ciera Vitale on 03-12-2023 Albumin BCG dye [Mass/Vol] 4.1 g/dL 3.5-5.7 [facility] Alkaline phosphatase [Enzyma tic activity/volume] in Serum or PlasmaOrdered By: Ciera Vitale on 03-12-2023 ALP [Catalytic activity/Vol] 76 U/L 34-104 [facility] Aspartate aminotransferase [ Enzymatic activity/volume] in Serum or PlasmaOrdered By: Ciera Vitale on 03-12-2023 AST [Catalytic activity/Vol] 32 U/L 13-39 [facility] Basophils Auto (Bld) [#/Vol] Ordered By: Ciera Vitale on 03-12-2023 Basophils (Bld) [#/Vol] 0.1 10*3/uL 0.0-0.2 [facility] Basophils/100 WBC Auto (Bld) Ordered By: Ciera Vitale on 03-12-2023 Basophils/100 WBC (Bld) 1.2 % . [facility] Bilirubin.total [Mass/volume ] in Serum or PlasmaOrdered By: Ciera Vitale on 03-12-2023 Bilirubin [Mass/Vol] 0.6 mg/dL 0.3-1.0 [facility] C reactive protein [Mass/vol ume] in Serum or PlasmaOrdered By: Ciera Vitale on 03-12-2023 CRP [Mass/Vol] 0.5 mg/dL 0.0-0.5 [facility] Calcium [Mass/volume] in Ser um or PlasmaOrdered By: Ciera Vitale on 03-12-2023 Calcium [Mass/Vol] 9.6 mg/dL 8.6-10.3 [facility] [place] Carbon dioxide, total [Moles /volume] in Serum or PlasmaOrdered By: Ciera Vitale on 03-12-2023 CO2 [Moles/Vol] 28.4 mmol/L 21.0-31.0 [facility] Chloride [Moles/volume] in S wilber or PlasmaOrdered By: Ciera Vitale on 03-12-2023 Chloride [Moles/Vol] 107 mmol/L 98-107 [facility] Creatinine [Mass/volume] in Serum or PlasmaOrdered By: Ciera Vitale on 03-12-2023 Creatinine [Mass/Vol] 0.65 mg/dL 0.60-1.20 [facility] Eosinophils Auto (Bld) [#/Vo l]Ordered By: Ciera Vitale on 03-12-2023 Eosinophils (Bld) [#/Vol] 0.3 10*3/uL 0.0-0.45 [facility] Eosinophils/100 WBC Auto (Bl d)Ordered By: Ciera Vitale on 03-12-2023 Eosinophils/100 WBC (Bld) 5.1 % . [facility] Erythrocyte distribution wid th Auto (RBC) [Ratio]Ordered By: Ciera Vitale on 03-12-2023 Erythrocyte distribution width (RBC) [Ratio] 13.9 % 11.9-15.3 [facility] Erythrocyte sedimentation ra te by Photometric methodOrdered By: Ciera Vitale on 03-12-2023 ESR Photometric method (Bld) [Velocity] 25 mm/hr 0-29 [facility] Globulin Calc (S) [Mass/Vol] Ordered By: Ciera Vitale on 03-12-2023 Globulin (S) [Mass/Vol] 2.8 g/dL [facility] Glucose [Mass/volume] in Ser um or PlasmaOrdered By: Ciera Vitale on 03-12-2023 Glucose [Mass/Vol] 95 mg/dL 70-100 [facility] [place] Comment on above: ADA recommended refe rence rangeRandom Glucose Reference Range is dependent on time and content of last meal. Glucose of more than 200 mg/dL in a nonstressed, ambulatory subject supports the diagnosis of Diabetes Mellitus. Hematocrit Auto (Bld) [Volum e fraction]Ordered By: Ciera Vitale on 03-12-2023 Hematocrit (Bld) [Volume fraction] 38.8 % 34.0-46.4 [facility] Hemoglobin [Mass/volume] in BloodOrdered By: Ciera Vitale on 03-12-2023 Hemoglobin (Bld) [Mass/Vol] 12.6 g/dL 11.8-15.4 [facility] Leukocytes [#/volume] correc pedro for nucleated erythrocytes in Blood by Automated counOrdered By: Ciera Vitale on 03-12-2023 WBC corrected for nucl RBC Auto (Bld) [#/Vol] 6.5 10*3/uL 3.8-11.6 [facility] Lymphocytes Auto (Bld) [#/Vo l]Ordered By: Ciera Vitale on 03-12-2023 Lymphocytes (Bld) [#/Vol] 1.5 10*3/uL 1.00-4.8 [facility] Lymphocytes/100 WBC Auto (Bl d)Ordered By: Ciera Vitale on 03-12-2023 Lymphocytes/100 WBC (Bld) 23.0 % . [facility] MCH Auto (RBC) [Entitic mass ]Ordered By: Ciera Vitale on 03-12-2023 MCH (RBC) [Entitic mass] 31.7 pg 24.7-34.3 [facility] MCHC Auto (RBC) [Mass/Vol]Or dered By: Ciera Vitale on 03-12-2023 MCHC (RBC) [Mass/Vol] 32.6 g/dL 32.0-35.0 [facility] MCV Auto (RBC) [Entitic vol] Ordered By: Ciera Vitale on 03-12-2023 MCV (RBC) [Entitic vol] 97.3 fL 80-100 [facility] Monocytes Auto (Bld) [#/Vol] Ordered By: Ciera Vitale on 03-12-2023 Monocytes (Bld) [#/Vol] 0.9 10*3/uL High 0.0-0.8 [facility] Monocytes/100 WBC Auto (Bld) Ordered By: Ciera Vitale on 03-12-2023 Monocytes/100 WBC (Bld) 13.4 % . [facility] Neutrophils Auto (Bld) [#/Vo l]Ordered By: Ciera Vitale on 03-12-2023 Neutrophils (Bld) [#/Vol] 3.7 10*3/uL 1.8-7.7 [facility] Neutrophils/100 WBC Auto (Bl d)Ordered By: Ciera Vitale on 03-12-2023 Neutrophils/100 WBC (Bld) 57.3 % . [facility] No Panel InformationOrdered By: Ciera Vitale on 03-12-2023 Anti-Nuclear Antibody Comment 2 See comment . [facility] Comment on above: For more information about [...] titers Nucleosomes, Histones Drug-induced SLE Speckled Sm, PACKAGE REINSPECTOR, SCL-70, SLE,MCTD,PSS (diffuse form), SS-A/SS-B Sjogrens Nucleolar SCL-70, PM-1/SCL High titers Scleroderma, PM/DM Centromere Centromere PSS (limited form) w/Crest syndrome variable Nuclear Dot Sp100,t90-vkjwme Primary Biliary Cirrhosis Nuclear GP210, Primary Biliary CirrhosisMembrane rory A,B,C Performed at: [facility] [id number] Director: Abdifatah Villegas PhD, Phone: [phone] Estimated GFR (CKD-EPI) > 60.0 mL/Min [facility] Creatinine Clearance (Chem 88.96 [facility] Nucleated erythrocytes [Pres ence] in Blood by Automated countOrdered By: Ciera Vitale on 03-12-2023 Nucleated RBC Auto Ql (Bld) 0.1 /100{WBC} 0-0.5 [facility] Platelet mean volume Auto (B ld) [Entitic vol]Ordered By: Ciera Vitale on 03-12-2023 Platelet mean volume (Bld) [Entitic vol] 8.5 fL 6.3-10.7 [facility] Platelets Auto (Bld) [#/Vol] Ordered By: Ciera Vitale on 03-12-2023 Platelets (Bld) [#/Vol] 417 10*3/uL 150-450 [facility] Potassium [Moles/volume] in Serum or PlasmaOrdered By: Ciera Vitale on 03-12-2023 Potassium [Moles/Vol] 4.7 mmol/L 3.5-5.1 [facility] Protein [Mass/volume] in Ser um or PlasmaOrdered By: Ciera Vitale on 03-12-2023 Protein [Mass/Vol] 6.9 g/dL 6.4-8.9 [facility] [place] RBC Auto (Bld) [#/Vol]Ordere d By: Ciera Vitale on 03-12-2023 RBC (Bld) [#/Vol] 3.99 10*6/uL 3.60-5.00 [facility] Serum homogeneous pattern an tinuclear antibody ([place]) titerOrdered By: Ciera Vitale on 03-12-2023 Homogenous nuclear Ab pattern (S) [Titer] 1:160 High . [facility] Comment on above: ICAP nomenclature: A C-1 Serum nuclear antibody titer Ordered By: Ciera Vitale on 03-12-2023 Nuclear Ab (S) [Titer] Positive Abnormal . [facility] Comment on above: Negative <1:80 Borde rline 1:80 Positive >1:80 Serum nucleolar pattern anti nuclear antibody ([place]) titerOrdered By: Ciera Vitale on 03-12-2023 Nucleolar nuclear Ab pattern (S) [Titer] 1:320 High . [facility] Comment on above: ICAP nomenclature: A C-8,9,10 Serum or plasma albumin/glob ulin mass ratioOrdered By: Ciera Vitale on 03-12-2023 Albumin/Globulin [Mass ratio] 1.5 {ratio} [facility] Serum or plasma anion gap de terminationOrdered By: Ciera Vitale on 03-12-2023 Anion gap [Moles/Vol] 9.3 mmol/L 6.0-15.0 [facility] Serum or plasma cyclic adeno sine monophosphate measurement (moles/volume)Ordered By: Ciera Vitale on 03-12-2023 Adenosine monophosphate.cyclic [Moles/Vol] 6 units 0-19 [facility] Comment on above: Negative <20 Weak po sitive 20 - 39 Moderate positive 40 - 59 Strong positive >59Performed at: - [facility] [address] [id number] Director: Abdifatah Villegas PhD, Phone: [phone] Serum or plasma rheumatoid f actor measurement (units/volume)Ordered By: Ciera Vitale on 03-12-2023 Rheumatoid factor Qn 10.3 [IU]/mL <14.0 [facility] Sodium [Moles/volume] in Ser um or PlasmaOrdered By: Ciera Vitale on 03-12-2023 Sodium [Moles/Vol] 140 mmol/L 136-145 [facility] [place] Urea nitrogen [Mass/volume] in Serum or PlasmaOrdered By: Ciera Vitale on 03-12-2023 Urea nitrogen [Mass/Vol] 6 mg/dL Low 7-25 [facility] WBC Auto (Bld) [#/Vol]Ordere d By: Ciera Omermary kate on 03-12-2023 WBC (Bld) [#/Vol] 6.5 10*3/uL 3.8-11.6 [facility] [place] COVID-19 Positive/NegativeOr dered By: Tone Magana on 03-05-2022 SARS-CoV-2 (COVID-19) N gene AMY+probe Ql (Resp) Negative Negative [facility] Comment on above: Testing for SARS-CoV -2 by RT-PCR This test was developed and its performance characteristics determined by [employer] and validated at the [facility]. This test has not been FDA cleared [...] N gene AMY+probe Ql (Resp) Negative Negative [facility] Comment on above: Testing for SARS-CoV -2 by RT-PCR This test was developed and its performance characteristics determined by [employer] and validated at the [facility]. This test has not been FDA cleared [...] 02-10-2022 Basophils (Bld) [#/Vol] 0.1 10*3/uL 0.0-0.2 [facility] Basophils/100 WBC Auto (Bld) Ordered By: Tone Magana on 02-10-2022 Basophils/100 WBC (Bld) 1.3 % . [facility] Blood hemoglobin measurement (mass/volume)Ordered By: Tone Magana on 02-10-2022 Hemoglobin (Bld) [Mass/Vol] 14.5 g/dL 11.8-15.4 [facility] Blood leukocytes automated c ount (number/volume)Ordered By: Tone Magana on 02-10-2022 WBC (Bld) [#/Vol] 8.1 10*3/uL 4.5-11.0 [facility] [place] Creatinine and Glomerular fi ltration rate.predicted panel (S/P/Bld)Ordered By: Tone Magana on 02-10-2022 Creatinine [Mass/Vol] 0.64 mg/dL 0.44-1.03 [facility] Eosinophils Auto (Bld) [#/Vo l]Ordered By: Tone Magana on 02-10-2022 Eosinophils (Bld) [#/Vol] 0.8 10*3/uL 0.0-0.45 [facility] Eosinophils/100 WBC Auto (Bl d)Ordered By: Tone Magana on 02-10-2022 Eosinophils/100 WBC (Bld) 10.2 % . [facility] Erythrocyte distribution wid th Auto (RBC) [Ratio]Ordered By: Tone Magana on 02-10-2022 Erythrocyte distribution width (RBC) [Ratio] 13.4 % 11.9-15.3 [facility] Estimated glomerular filtrat ion rate (GFR) non- AmericanOrdered By: Tone Magana on 02-10-2022 GFR/1.73 sq M.predicted among non-blacks MDRD (S/P/Bld) [Vol rate/Area] > 60 mL/Min [facility] Hematocrit Auto (Bld) [Volum e fraction]Ordered By: Tone Magana on 02-10-2022 Hematocrit (Bld) [Volume fraction] 43.4 % 34.0-46.4 [facility] Laboratory - Hematology and Cell countsOrdered By: Tone Magana on 02-10-2022 Nucleated RBC/100 WBC (Bld) [Ratio] 0.2 % 0-0.5 [facility] Lymphocytes Auto (Bld) [#/Vo l]Ordered By: Tone Magana on 02-10-2022 Lymphocytes (Bld) [#/Vol] 1.7 10*3/uL 1.00-4.8 [facility] Lymphocytes/100 WBC Auto (Bl d)Ordered By: Tone Magana on 02-10-2022 Lymphocytes/100 WBC (Bld) 21.4 % . [facility] MCH Auto (RBC) [Entitic mass ]Ordered By: Tone Magana on 02-10-2022 MCH (RBC) [Entitic mass] 33.8 pg 24.7-34.3 [facility] MCHC Auto (RBC) [Mass/Vol]Or dered By: Tone Magana on 02-10-2022 MCHC (RBC) [Mass/Vol] 33.4 g/dL 32.0-35.0 [facility] MCV Auto (RBC) [Entitic vol] Ordered By: Tone Magana on 02-10-2022 MCV (RBC) [Entitic vol] 101.3 fL 80-100 [facility] Monocytes Auto (Bld) [#/Vol] Ordered By: Tone Magana on 02-10-2022 Monocytes (Bld) [#/Vol] 1.0 10*3/uL 0.0-0.8 [facility] Monocytes/100 WBC Auto (Bld) Ordered By: Tone Magana on 02-10-2022 Monocytes/100 WBC (Bld) 12.2 % . [facility] Neutrophils Auto (Bld) [#/Vo l]Ordered By: Tone Magana on 02-10-2022 Neutrophils (Bld) [#/Vol] 4.4 10*3/uL 1.8-7.7 [facility] Neutrophils/100 WBC Auto (Bl d)Ordered By: Tone Magana on 02-10-2022 Neutrophils/100 WBC (Bld) 54.9 % . [facility] No Panel InformationOrdered By: Tone Magana on 02-10-2022 Estimated GFR () > 60 mL/Min [facility] Comment on above: GFR estimated refere nce range: According to KDOQI guidelines, <60 ml/min/1.73m2 is sufficient to diagnose a patient with chronic kidney disease. Pharmacy Creatinine Clearance (Chem N/A [facility] Platelet mean volume Auto (B ld) [Entitic vol]Ordered By: Tone Magana on 02-10-2022 Platelet mean volume (Bld) [Entitic vol] 8.1 fL 6.3-10.7 [facility] Platelets Auto (Bld) [#/Vol] Ordered By: Tone Magana on 02-10-2022 Platelets (Bld) [#/Vol] 388 10*3/uL 150-450 [facility] RBC Auto (Bld) [#/Vol]Ordere d By: Tone Magana on 02-10-2022 RBC (Bld) [#/Vol] 4.29 10*6/uL 3.60-5.00 [facility] Serum or plasma calcium cyndee urement (mass/volume)Ordered By: Tone Magana on 02-10-2022 Calcium [Mass/Vol] 9.6 mg/dL 8.2-10.2 [facility] [place] Serum or plasma chloride raf surement (moles/volume)Ordered By: Tone Magana on 02-10-2022 Chloride [Moles/Vol] 106 mmol/L 95-114 [facility] Serum or plasma glucose cyndee urement (mass/volume)Ordered By: Tone Magana on 02-10-2022 Glucose [Mass/Vol] 103 mg/dL 70-100 [facility] [place] Comment on above: ADA recommended refe rence range Random Glucose Reference Range is dependent on time and content of last meal. Glucose of more than 200 mg/dL in a nonstressed, ambulatory subject supports the diagnosis of Diabetes Mellitus. Serum or plasma potassium me asurement (moles/volume)Ordered By: Tone Magana on 02-10-2022 Potassium [Moles/Vol] 4.2 mmol/L 3.5-5.1 [facility] Serum or plasma sodium measu rement (moles/volume)Ordered By: Tone Magana on 02-10-2022 Sodium [Moles/Vol] 140 mmol/L 136-146 [facility] [place] Serum or plasma total carbon dioxide measurement (moles/volume)Ordered By: Tone Magana on 02-10-2022 CO2 [Moles/Vol] 25.4 mmol/L 22.0-30.0 [facility] Serum or plasma urea nitroge n measurement (mass/volume)Ordered By: Tone Magana on 02-10-2022 Urea nitrogen [Mass/Vol] 4 mg/dL 9-23 [facility] US VAC ASST BX BREAST RT W C LIPon 01-09-2022 US VAC ASST BX BREAST RT W CLIP Begin Addendum #1 COLLECTED DATE/TIME: 01/01/2022 08:41 EDT Final Diagnosis Report for [facility] [place], [place] RIGHT BREAST MASS, 1 O'CLOCK, ULTRASOUND [...] mass 2. Pathology results are pending. Normal [facility] MAMMO POST BIOPSY RIGHTon MAMMO POST BIOPSY RIGHT Patient: DENIA VILLARREAL Exam Date: 01/01/2022 : 1960 Gender:F Ordering : DR HOWARD SCHUMACHER . Admission #: [id number] Family : Order #: [id number] CLICK HERE TO VIEW EXAM RADIOLOGY REPORT [...] MD on 01/01/2022 at 09:08 Normal [facility] MG MAMM DIAGNOSTIC 3D ALFREDO CA Don 12-25-2021 MG MAMM DIAGNOSTIC 3D ALFREDO CAD Patient: DENIA AL Exam Date: 12/25/2021 : 1960 Gender:F Ordering : DR HOWARD SCHUMACHER . Admission #: [id number] Family : Order #: [id number] CLICK HERE TO VIEW EXAM RADIOLOGY REPORT [...] stomach cancer at age 82. LOCATION: [facility] BREAST COMPOSITION: Almost entirely fatty. FINDINGS: DIAGNOSTIC [...] radiology department nurse will contact patient to promotions assistant sales marketing scheduling a biopsy. LEFT BREAST: A few, scattered benign-appearing tiny calcifications. No suspicious findings. RECOMMENDATIONS: ULTRASOUND-GUIDED CORE BIOPSY: RIGHT BREAST PLEASE NOTE: A NORMAL MAMMOGRAM DOES NOT EXCLUDE THE POSSIBILITY OF BREAST CANCER. A CLINICALLY SUSPICIOUS PALPABLE LUMP SHOULD BE BIOPSIED. Dictated by: Corbin Lester M.D. on 12/25/2021 at 08:39 Approved by: Corbin Lester M.D. on 12/25/2021 at 08:49 Normal [facility] US BREAST RIGHT LIMITEDon US BREAST RIGHT LIMITED Patient: DENIA VILLARREAL Exam Date: 12/25/2021 : 1960 Gender:F Ordering : DR HOWARD SCHUMACHER . Admission #: [id number] Family : Order #: [id number] CLICK HERE TO VIEW EXAM RADIOLOGY REPORT [...] stomach cancer at age 82. LOCATION: [facility] BREAST COMPOSITION: Almost entirely fatty. FINDINGS: DIAGNOSTIC [...] radiology department nurse will contact patient to promotions assistant sales marketing scheduling a biopsy. LEFT BREAST: A few, scattered benign-appearing tiny calcifications. No suspicious findings. RECOMMENDATIONS: ULTRASOUND-GUIDED CORE BIOPSY: RIGHT BREAST PLEASE NOTE: A NORMAL MAMMOGRAM DOES NOT EXCLUDE THE POSSIBILITY OF BREAST CANCER. A CLINICALLY SUSPICIOUS PALPABLE LUMP SHOULD BE BIOPSIED. Dictated by: Corbin Lester M.D. on 12/25/2021 at 08:39 Approved by: Corbin Lester M.D. on 12/25/2021 at 08:49 Normal [facility] CBC AUTO DIFFon 12-09-2021 BASO # 0.1 103/ul Normal 0.0-0.1 [facility] Comment on above: Performed By: #### C BC #### [facility] [address], [place] [address] Dr. Yaya Cee Basophils/100 WBC (Bld) 1.7 % Normal 0.2-2.[address] [facility] Comment on above: Performed By: #### C BC #### [facility] [address], [place] [address] Dr. Yaya Cee EO # 0.7 103/ul Normal 0.0-0.7 [facility] Comment on above: Performed By: #### C BC #### [facility] [address] [place] [address] Dr. Yaya Cee Eosinophils/100 WBC (Bld) 9.7 % Critically high 0.9-7.0 [facility] Comment on above: Performed By: #### C BC #### [facility] [address] [place] [address] Dr. Yaya Cee Erythrocyte distribution width (RBC) [Ratio] 13.7 % Normal 11.0-15.0 [facility] Comment on above: Performed By: #### C BC #### [facility] [address] [place] [address] Dr. Yaya Cee Hematocrit (Bld) [Volume fraction] 43.0 % Normal 36.0-48.0 [facility] Comment on above: Performed By: #### C BC #### [facility] [address] [place] [address] Dr. Yaya Cee Hemoglobin (Bld) [Mass/Vol] 13.9 g/dL Normal 12.0-16.0 [facility] Comment on above: Performed By: #### C BC #### [facility] [address] [place] [address] Dr. aYya Cee IG # 0.05 10e3/ul Critically high 0.00-0.03 [facility] Comment on above: Performed By: #### C BC #### [facility] [address] [place] [address] Dr. Yaya Cee IG % 0.7 % Critically high 0.0-0.5 [facility] Comment on above: Performed By: #### C BC #### [facility] [address] [place] [address] Dr. Yaya Cee LYMPH # 1.8 103/ul Normal 1.2-3.8 [facility] Comment on above: Performed By: #### C BC #### [facility] [address] [place] [address] Dr. Yaya Cee Lymphocytes/100 WBC (Bld) 25.4 % Normal 20.5-60.0 [facility] Comment on above: Performed By: #### C BC #### [facility] [address] [address] [address] Yaya Cee MANUAL DIFF REQ NO Normal [facility] Comment on above: Performed By: #### C BC #### [facility] [address] [place] [address] Dr. Yaya Cee MCH (RBC) [Entitic mass] 33.3 pg Normal 26.7-34.0 [facility] Comment on above: Performed By: #### C BC #### [facility] [address] [place] [address] Dr. Yaya Cee MCHC (RBC) [Mass/Vol] 32.3 g/dL Normal 29.9-35.2 [facility] Comment on above: Performed By: #### C BC #### [facility] [address] [place] [address] Dr. Yaya Cee MCV (RBC) [Entitic vol] 102.9 fL Critically high 81.0-99 .0 [facility] Comment on above: Performed By: #### C BC #### [facility] [address] [place] [address] Dr. Yaya Cee MONO # 0.9 103/ul Critically high 0.3-0.8 [facility] Comment on above: Performed By: #### C BC #### [facility] [address] [place] [address] Dr. Yaya Cee Monocytes/100 WBC (Bld) 12.6 % Critically high 1.7-12. 0 [facility] Comment on above: Performed By: #### C BC #### [facility] [address] [place] [address] Dr. Yaya Cee NEUT # 3.6 103/ul Normal 1.4-6.5 [facility] Comment on above: Performed By: #### C BC #### [facility] [address] [place] [address] Dr. Yaya Cee Neutrophils/100 WBC (Bld) 49.9 % Normal 43.0-75.0 [facility] Comment on above: Performed By: #### C BC #### [facility] [address] [address] [address] Yaya Cee Platelet mean volume (Bld) [Entitic vol] 10.0 fL Normal 9.5-13.5 [facility] Comment on above: Performed By: #### C BC #### [facility] [address] [place] [address] Dr. Yaya Cee PLT 421 103/ul Normal 150-450 [facility] Comment on above: Performed By: #### C BC #### [facility] [address] [place] [address] Dr. Yaya Cee RBC 4.18 106/ul Critically low 4.20-5.40 [facility] Comment on above: Performed By: #### C BC #### [facility] [address] [place] [address] Dr. Yaya Cee WBC 7.1 103/ul Normal 4.0-11.0 [facility] Comment on above: Performed By: #### C BC #### [facility] [address] [place] [address] Dr. Yaya Cee GLYCOHEMOGLOBIN A1Con 2021 ADA RECOMMENDATION SEE BELOW Normal [facility] Comment on above: Result Comment: ADA RECOMMENDED LIMIT 4.0 - 6.0 ADA THERAPEUTIC TARGET < 7.0 ACTION SUGGESTED > 7.0 Performed By: #### A 1C #### [facility] [address] [place] [address] Dr. Yaya Cee Glucose [Mass/Vol] 108 mg/dL Normal [facility] Comment on above: Performed By: #### A 1C #### [facility] [address] [place] [address] Dr. Yaya Cee HbA1c (Bld) [Mass fraction] 5.4 % Normal 4.5-6.2 [facility] Comment on above: Performed By: #### A 1C #### [facility] [address] [place] [address] Dr. Yaya Cee LIPID PROFILEon 12-09-2021 CHOL-HDL RATIO NORM SEE BELOW Normal [facility] Comment on above: Result Comment: 3.3 - 4.4 LOW RISK 4.4 - 7.1 AVERAGE RISK 7.1 - 11.0 MODERATE RISK >11.0 HIGH RISK Performed By: #### T SH, LIPID, LIVER, BMP #### [facility] [address] [place] [address] Dr. Yaya Cee Cholesterol [Mass/Vol] 219 mg/dL Critically high <=200 [facility] Comment on above: Performed By: #### T SH, LIPID, LIVER, BMP #### [facility] [address] [place] [address] Dr. Yaya Cee Cholesterol in HDL [Mass/Vol] 68 mg/dL Critically high 40-60 [facility] Comment on above: Performed By: #### T SH, LIPID, LIVER, BMP #### [facility] [address] [place] [address] Dr. Yaya Cee Cholesterol in LDL [Mass/Vol] 130.8 mg/dL Normal [facility] Comment on above: Performed By: #### T SH, LIPID, LIVER, BMP #### [facility] [address] [place] [address] Dr. Yaya Cee Cholesterol.total/Tammie sterol in HDL [Mass ratio] 3.2 {ratio} Normal [facility] Comment on above: Performed By: #### T SH, LIPID, LIVER, BMP #### [facility] [address] [place] [address] Dr. Yaya Cee HDL NORMAL > or = 60 mg/dl - LO W CARDIOVASCULAR RISK <40 mg/dl - HIGH CARDIOVASCULAR RISK Normal [facility] Comment on above: Performed By: #### T SH, LIPID, LIVER, BMP #### [facility] [address] [place] [address] Dr. Yaya Cee LDL CALC NORMAL SEE BELOW Normal [facility] Comment on above: Result Comment: <100 mg/dl OPTIMAL 100 - 129 mg/dl NEAR OR ABOVE OPTIMAL 130 - 159 mg/dl BORDERLINE HIGH 160 - 189 mg/dl HIGH >190 mg/dl VERY HIGH Performed By: #### T SH, LIPID, LIVER, BMP #### [facility] [address] [place] [address] Dr. Yaya Cee Triglyceride [Mass/Vol] 101 mg/dL Normal <=150 T [facility] Comment on above: Performed By: #### T SH, LIPID, LIVER, BMP #### [facility] [address] [address] [address] Yaya Cee VLDL CALC 20.2 mg/dL Normal [facility] Comment on above: Performed By: #### T SH, LIPID, LIVER, BMP #### [facility] [address] [address] [address] Yaya Cee LIVER PROFILEon 12-09-2021 Albumin [Mass/Vol] 3.6 g/dL Normal 3.4-5.0 [facility] Comment on above: Performed By: #### T SH, LIPID, LIVER, BMP #### [facility] [address] [place] [address] Dr. Yaya Cee Albumin/Globulin [Mass ratio] 1.0 {ratio} Normal [facility] Comment on above: Performed By: #### T SH, LIPID, LIVER, BMP #### [facility] [address] [place] [address] Dr. Yaya Cee ALP [Catalytic activity/Vol] 79 U/L Normal 46-116 [facility] Comment on above: Performed By: #### T SH, LIPID, LIVER, BMP #### [facility] [address] [place] [address] Dr. Yaya Cee ALT [Catalytic activity/Vol] 35 U/L Normal 14-59 [facility] Comment on above: Performed By: #### T SH, LIPID, LIVER, BMP #### [facility] [address] [place] [address] Dr. Yaya Cee AST [Catalytic activity/Vol] 60 U/L Critically high 15-37 [facility] Comment on above: Performed By: #### T SH, LIPID, LIVER, BMP #### [facility] [address] [place] [address] Dr. Yaya Cee BILI, CONJUGATED 0.1 mg/dL Normal 0.0-0.2 [facility] Comment on above: Performed By: #### T SH, LIPID, LIVER, BMP #### [facility] [address] [place] [address] Dr. Yaya Cee Bilirubin [Mass/Vol] 0.3 mg/dL Normal 0.2-1.0 [facility] Comment on above: Performed By: #### T SH, LIPID, LIVER, BMP #### [facility] [address] [place] [address] Dr. Yaya Cee Globulin (S) [Mass/Vol] 3.6 g/dL Normal [facility] Comment on above: Performed By: #### T SH, LIPID, LIVER, BMP #### [facility] [address] [place] [address] Dr. Yaya Cee Protein [Mass/Vol] 7.2 g/dL Normal 6.4-8.2 [facility] Comment on above: Performed By: #### T SH, LIPID, LIVER, BMP #### [facility] [address] [place] [address] Dr. Yaya Cee PROF CHEM 8 (BAS METB)on Anion gap [Moles/Vol] 11.4 mmol/L Normal [facility] Comment on above: Performed By: #### T SH, LIPID, LIVER, BMP #### [facility] [address] [place] [address] Dr. Yaya Cee Calcium [Mass/Vol] 8.8 mg/dL Normal 8.5-10.1 [facility] Comment on above: Performed By: #### T SH, LIPID, LIVER, BMP #### [facility] [address] [place] [address] Dr. Yaya Cee Chloride [Moles/Vol] 108 mmol/L Critically high 98-107 [facility] Comment on above: Performed By: #### T SH, LIPID, LIVER, BMP #### [facility] [address] [place] [address] Dr. Yaya Cee CO2 [Moles/Vol] 25.4 mmol/L Normal 21.0-32.0 [facility] Comment on above: Performed By: #### T SH, LIPID, LIVER, BMP #### [facility] [address] [place] [address] Dr. Yaya Cee Creatinine [Mass/Vol] 0.63 mg/dL Normal 0.55-1.02 [facility] Comment on above: Performed By: #### T SH, LIPID, LIVER, BMP #### [facility] [address] [address] [address] Yaya Cee EGFR-AF ERITREAN >60 Normal >=60 [facility] Comment on above: Performed By: #### T SH, LIPID, LIVER, BMP #### [facility] [address] [address] [address] Yaya Cee EGFR-NON AF ERITREAN >60 Normal >=60 [facility] Comment on above: Performed By: #### T SH, LIPID, LIVER, BMP #### [facility] [address] [place] [address] Dr. Yaya Cee Glucose [Mass/Vol] 105 mg/dL Normal 74-106 [facility] Comment on above: Performed By: #### T SH, LIPID, LIVER, BMP #### [facility] [address] [place] [address] Dr. Yaya Cee Potassium [Moles/Vol] 4.8 mmol/L Normal 3.5-5.1 [facility] Comment on above: Performed By: #### T SH, LIPID, LIVER, BMP #### [facility] [address] [place] [address] Dr. Yaya Cee Sodium [Moles/Vol] 140 mmol/L Normal 136-145 [facility] Comment on above: Performed By: #### T SH, LIPID, LIVER, BMP #### [facility] [address] [place] [address] Dr. Yaya Cee Urea nitrogen [Mass/Vol] 7.0 mg/dL Normal 7.0-18.0 [facility] Comment on above: Performed By: #### T SH, LIPID, LIVER, BMP #### [facility] [address] [place] [address] Dr. Yaya Cee Urea nitrogen/Creatinine [Mass ratio] 11.1 mg/mg Normal [facility] Comment on above: Performed By: #### T SH, LIPID, LIVER, BMP #### [facility] [address] [address] [address] Yaya Cee TSHon 12-09-2021 TSH 0.600 uIU/mL Normal 0.358-3.740 [facility] Comment on above: Performed By: #### T SH, LIPID, LIVER, BMP #### [facility] [address] [address] [address] Yaya Cee TSH RANGE SEE BELOW Normal [facility] Comment on above: Result Comment: <0.3 4 UIU/ml HYPERTHYROID 0.34-5.60 UIU/ml EUTHYROID >5.60 UIU/ml HYPOTHYROID Performed By: #### T SH, LIPID, LIVER, BMP #### [facility] [address] [address] [address] Yaya Cee Vital Signs Date Time Vital Sign Value Performing Clinician Facility 08-22-2024 09:19-0500 Body height 165.1 cm [facility] 08-22-2024 09:19-0500 Body mass index (BMI) [Ratio] 28.4 kg/m2 [facility] 08-22-2024 09:19-0500 Body temperature 97.8 [degF] [facility] 08-22-2024 09:19-0500 Body weight 77.56 kg [facility] 08-22-2024 09:19-0500 Diastolic blood pressure 83 mm[Hg] [facility] 08-22-2024 09:19-0500 Heart rate 61 /min [facility] 08-22-2024 09:19-0500 Respiratory rate 16 /min [facility] 08-22-2024 09:19-0500 SaO2% (BldA) [Mass fraction] 97 % [facility] 08-22-2024 09:19-0500 Systolic blood pressure 156 mm[Hg] [facility] 08-11-2024 10:47-0500 Body height 165.1 cm Bandar Espinosa DPM Work Phone: [facility] 08-11-2024 10:47-0500 Body mass index (BMI) [Ratio] 28.29 kg/m2 Bandar Espinosa DPM Work Phone: [facility] 08-11-2024 10:47-0500 Body weight 77.11 kg Bandar Espinosa DPM Work Phone: [facility] 08-11-2024 10:47-0500 Respiratory rate 16 /min Bandar Jesús DPM Work Phone: [facility] 08-01-2024 13:12-0500 Body height 165.1 cm Howard Schumacher MD Work Phone: [facility] 08-01-2024 13:12-0500 Body mass index (BMI) [Ratio] 28.29 kg/m2 Howard Schumacher MD Work Phone: [facility] 08-01-2024 13:12-0500 Body temperature 98.6 [degF] Howard Schumacher MD Work Phone: [facility] 08-01-2024 13:12-0500 Body weight 77.11 kg Howard Schumacher MD Work Phone: [facility] 08-01-2024 13:12-0500 Diastolic blood pressure 80 mm[Hg] Howard Schumacher MD Work Phone: [facility] 08-01-2024 13:12-0500 Heart rate 104 /min Howard Schumacher MD Work Phone: [facility] 08-01-2024 13:12-0500 Respiratory rate 22 /min Howard Schumacher MD Work Phone: [facility] 08-01-2024 13:12-0500 SaO2% (BldA) [Mass fraction] 97 % Howard Schumacher MD Work Phone: [facility] 08-01-2024 13:12-0500 Systolic blood pressure 168 mm[Hg] Howard Schumacher MD Work Phone: [facility] 07-28-2024 11:08-0500 Body height 165.1 cm Bandar Brown DPM Work Phone: [facility] 07-28-2024 11:08-0500 Body mass index (BMI) [Ratio] 26.63 kg/m2 Bandar Espinosa DPM Work Phone: [facility] 07-28-2024 11:08-0500 Body weight 72.58 kg Bandar Espinosa DPM Work Phone: [facility] 07-28-2024 11:08-0500 Respiratory rate 16 /min Bandar Espinosa DPM Work Phone: [facility] 04-01-2024 09:51-0400 Body height 165.1 cm Tone Itzkowitz DO Work Phone: [facility] 04-01-2024 09:51-0400 Body mass index (BMI) [Ratio] 27.76 kg/m2 Tone Itzkowitz DO Work Phone: [facility] 04-01-2024 09:51-0400 Body weight 75.66 kg Tone Itzkowitz DO Work Phone: [facility] 04-01-2024 09:51-0400 Diastolic blood pressure 88 mm[Hg] Tone Itzkowitz DO Work Phone: [facility] 04-01-2024 09:51-0400 Systolic blood pressure 152 mm[Hg] Tone Itzkowitz DO Work Phone: [facility] 02-11-2024 08:23-0400 Body temperature 97.8 [degF] MD Lisa Hennessy Work Phone: [facility] 02-11-2024 08:23-0400 Body weight 76.2 kg MD Lisa Hennessy Work Phone: [facility] 02-11-2024 08:23-0400 Diastolic blood pressure 85 mm[Hg] MD Lisa Hennessy Work Phone: [facility] 02-11-2024 08:23-0400 Heart rate 65 /min MD Lisa Hennessy Work Phone: [facility] 02-11-2024 08:23-0400 Respiratory rate 16 /min MD Lisa Hennessy Work Phone: [facility] 02-11-2024 08:23-0400 SaO2% (BldA) [Mass fraction] 100 % MD Lisa Hennessy Work Phone: [facility] 02-11-2024 08:23-0400 Systolic blood pressure 158 mm[Hg] MD Lisa Hennessy Work Phone: [facility] 07-02-2023 12:55-0500 Body temperature 97.9 [degF] MD Lisa Hennessy Work Phone: [facility] 07-02-2023 12:55-0500 Body weight 80.28 kg MD Lisa Hennessy Work Phone: [facility] 07-02-2023 12:55-0500 Diastolic blood pressure 96 mm[Hg] MD Lisa Hennessy Work Phone: [facility] 07-02-2023 12:55-0500 Heart rate 73 /min MD Lisa Hennessy Work Phone: [facility] 07-02-2023 12:55-0500 Respiratory rate 16 /min MD Lisa Hennessy Work Phone: [facility] 07-02-2023 12:55-0500 SaO2% (BldA) [Mass fraction] 96 % MD Lisa Hennessy Work Phone: [facility] 07-02-2023 12:55-0500 Systolic blood pressure 167 mm[Hg] MD Lisa Hennessy Work Phone: [facility] 04-16-2023 11:06-0400 Body temperature 98.1 [degF] MD Lisa Hennessy Work Phone: [facility] 04-16-2023 11:06-0400 Body weight 77.83 kg MD Lisa Hennessy Work Phone: [facility] 04-16-2023 11:06-0400 Diastolic blood pressure 87 mm[Hg] MD Lisa Hennessy Work Phone: [facility] 04-16-2023 11:06-0400 Heart rate 63 /min MD Lisa Hennessy Work Phone: [facility] 04-16-2023 11:06-0400 Respiratory rate 20 /min MD Lisa Hennessy Work Phone: [facility] 04-16-2023 11:06-0400 SaO2% (BldA) [Mass fraction] 99 % MD Lisa Hennessy Work Phone: [facility] 04-16-2023 11:06-0400 Systolic blood pressure 131 mm[Hg] MD Lisa Hennessy Work Phone: [facility] 03-12-2023 13:02-0400 Body temperature 98.8 [degF] MD Lisa Hennessy Work Phone: [facility] 03-12-2023 13:02-0400 Body weight 75.61 kg MD Lisa Hennessy Work Phone: [facility] 03-12-2023 13:02-0400 Diastolic blood pressure 86 mm[Hg] MD Lisa Hennessy Work Phone: [facility] 03-12-2023 13:02-0400 Heart rate 55 /min MD Lisa Hennessy Work Phone: [facility] 03-12-2023 13:02-0400 Respiratory rate 18 /min MD Lisa Hennessy Work Phone: [facility] 03-12-2023 13:02-0400 SaO2% (BldA) [Mass fraction] 99 % MD Lisa Hennessy Work Phone: [facility] 03-12-2023 13:02-0400 Systolic blood pressure 174 mm[Hg] MD Lisa Hennessy Work Phone: [facility] 12-31-2022 13:23-0400 Body temperature 97.8 [degF] MD Lisa Hennessy Work Phone: [facility] 12-31-2022 13:23-0400 Body weight 76.2 kg MD Lisa Hennessy Work Phone: [facility] 12-31-2022 13:23-0400 Diastolic blood pressure 84 mm[Hg] MD Lisa Hennessy Work Phone: [facility] 12-31-2022 13:23-0400 Heart rate 62 /min MD Lisa Hennessy Work Phone: [facility] 12-31-2022 13:23-0400 Respiratory rate 16 /min MD Lisa Hennessy Work Phone: [facility] 12-31-2022 13:23-0400 SaO2% (BldA) [Mass fraction] 98 % MD Lisa Hennessy Work Phone: [facility] 12-31-2022 13:23-0400 Systolic blood pressure 172 mm[Hg] MD Lisa Hennessy Work Phone: [facility] 09-11-2022 14:57-0500 Body height 165.1 cm MD Lisa Hennessy Work Phone: [facility] 09-11-2022 14:57-0500 Body temperature 98.4 [degF] MD Lisa Hennessy Work Phone: [facility] 09-11-2022 14:57-0500 Body weight 76.1 kg MD Lisa Hennessy Work Phone: [facility] 09-11-2022 14:57-0500 Diastolic blood pressure 78 mm[Hg] MD Lisa Hennessy Work Phone: [facility] 09-11-2022 14:57-0500 Heart rate 89 /min MD Lisa Hennessy Work Phone: [facility] 09-11-2022 14:57-0500 Respiratory rate 20 /min MD Lisa Hennessy Work Phone: [facility] 09-11-2022 14:57-0500 SaO2% (BldA) [Mass fraction] 99 % MD Lisa Hennessy Work Phone: [facility] 09-11-2022 14:57-0500 Systolic blood pressure 144 mm[Hg] MD Lisa Hennessy Work Phone: [facility] 06-18-2022 08:57-0500 Body temperature 98.2 [degF] MD Lisa Hennessy Work Phone: [facility] 06-18-2022 08:57-0500 Body weight 76.3 kg MD Lisa Hennessy Work Phone: [facility] 06-18-2022 08:57-0500 Diastolic blood pressure 77 mm[Hg] MD Lisa Hennessy Work Phone: [facility] 06-18-2022 08:57-0500 Heart rate 66 /min MD Lisa Hennessy Work Phone: [facility] 06-18-2022 08:57-0500 Respiratory rate 18 /min MD Lisa Hennessy Work Phone: [facility] 06-18-2022 08:57-0500 SaO2% (BldA) [Mass fraction] 98 % MD Lisa Hennessy Work Phone: [facility] 06-18-2022 08:57-0500 Systolic blood pressure 136 mm[Hg] MD Lisa Hennessy Work Phone: [facility] 04-02-2022 08:43-0400 Body temperature 97 [degF] MD Howard Schumacher Work Phone: [facility] 04-02-2022 08:43-0400 Body weight 74.38 kg MD Howard Schumacher Work Phone: [facility] 04-02-2022 08:43-0400 Diastolic blood pressure 85 mm[Hg] MD Howard Schumacher Work Phone: [facility] 04-02-2022 08:43-0400 Heart rate 66 /min MD Howard Schumacher Work Phone: [facility] 04-02-2022 08:43-0400 Respiratory rate 16 /min MD Howard Schumacher Work Phone: [facility] 04-02-2022 08:43-0400 SaO2% (BldA) [Mass fraction] 98 % MD Howard Schumacher Work Phone: [facility] 04-02-2022 08:43-0400 Systolic blood pressure 159 mm[Hg] MD Howard Schumacher Work Phone: [facility] 03-14-2022 13:12-0400 Body temperature 97.8 [degF] MD Howard Schumacher Work Phone: [facility] 03-14-2022 13:12-0400 Body weight 74.84 kg MD Howard Schumacher Work Phone: [facility] 03-14-2022 13:12-0400 Diastolic blood pressure 82 mm[Hg] MD Howard Schumacher Work Phone: [facility] 03-14-2022 13:12-0400 Heart rate 99 /min MD Howard Schumacher Work Phone: [facility] 03-14-2022 13:12-0400 Respiratory rate 16 /min MD Howard Schumacher Work Phone: [facility] 03-14-2022 13:12-0400 SaO2% (BldA) [Mass fraction] 98 % MD Howard Schumacher Work Phone: [facility] 03-14-2022 13:12-0400 Systolic blood pressure 165 mm[Hg] MD Howard Schumacher Work Phone: [facility] 03-07-2022 08:55-0400 Diastolic blood pressure 84 mm[Hg] MD Howard Schumacher Work Phone: [facility] 03-07-2022 08:55-0400 Heart rate 80 /min MD Howard Schumacher Work Phone: [facility] 03-07-2022 08:55-0400 Respiratory rate 20 /min MD Howard Schumacher Work Phone: [facility] 03-07-2022 08:55-0400 SaO2% (BldA) [Mass fraction] 95 % MD Howard Schumacher Work Phone: [facility] 03-07-2022 08:55-0400 Systolic blood pressure 135 mm[Hg] MD Howard Schumacher Work Phone: [facility] 03-07-2022 07:10-0400 Body height 165.1 cm MD Howard Schumacher Work Phone: [facility] 03-07-2022 07:10-0400 Body mass index (BMI) [Ratio] 27.3 kg/m2 MD Howard Schumacher Work Phone: [facility] 03-07-2022 07:10-0400 Body weight 74.38 kg MD Howard Schumacher Work Phone: [facility] 03-07-2022 06:11-0400 Body temperature 98 [degF] MD Howard Schumacher Work Phone: [facility] 02-18-2022 20:17-0400 Body mass index (BMI) [Ratio] 26.4 kg/m2 MD Howard Schumacher Work Phone: [facility] 02-18-2022 15:30-0400 Diastolic blood pressure 76 mm[Hg] MD Howard Schumacher Work Phone: [facility] 02-18-2022 15:30-0400 Heart rate 59 /min MD Howard Schumacher Work Phone: [facility] 02-18-2022 15:30-0400 Respiratory rate 16 /min MD Howard Schumacher Work Phone: [facility] 02-18-2022 15:30-0400 SaO2% (BldA) [Mass fraction] 95 % MD Howard Schumacher Work Phone: [facility] 02-18-2022 15:30-0400 Systolic blood pressure 136 mm[Hg] MD Howard Schumacher Work Phone: [facility] 02-18-2022 13:38-0400 Body temperature 97.9 [degF] MD Howard Schumacher Work Phone: [facility] 02-18-2022 13:38-0400 Inhaled oxygen flow rate 6 L/min MD Howard Schumacher Work Phone: [facility] 02-18-2022 11:06-0400 Body height 165.1 cm MD Howard Schumacher Work Phone: [facility] 02-18-2022 11:06-0400 Body weight 72 kg MD Howard Schumacher Work Phone: [facility] 01-29-2022 13:25-0400 Body temperature 97.2 [degF] MD Lisa Hennessy Work Phone: [facility] 01-29-2022 13:25-0400 Body weight 72.57 kg MD Lisa Hennessy Work Phone: [facility] 01-29-2022 13:25-0400 Diastolic blood pressure 90 mm[Hg] MD Lisa Hennessy Work Phone: [facility] 01-29-2022 13:25-0400 Heart rate 72 /min MD Lisa Hennessy Work Phone: [facility] 01-29-2022 13:25-0400 Respiratory rate 16 /min MD Lisa Hennessy Work Phone: [facility] 01-29-2022 13:25-0400 SaO2% (BldA) [Mass fraction] 98 % MD Lisa Hennessy Work Phone: [facility] 01-29-2022 13:25-0400 Systolic blood pressure 160 mm[Hg] MD Lisa Hennessy Work Phone: [facility] 01-29-2022 12:53-0400 Body height 165.1 cm MD Lisa Hennessy Work Phone: [facility] Encounters Encounter Date Encounter Type Care Provider Facility Start: 08-22-2024 End: 08-22-2024 ambulatory Howard Schumacher [facility] Work Phone: Start: 08-22-2024 End: 08-22-2024 [facility] Work Phone: Start: 08-11-2024 End: [...] 30 minutes Bandar Espinosa DPM Work Phone: [facility] Comment on above: Abscess, toe, left ( Primary Dx); Onychocryptosis; Toe pain, left Start: 07-28-2024 End: 07-28-2024 ambulatory BANDAR ESPINOSA Not Available Start: 04-01-2024 End: 04-01-2024 Office outpatient visit 25 minutes Tone H Itmelissa DO Work Phone: [facility] Comment on above: 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, estrogen receptor positive (CMS/HCC) (Primary Dx) Start: 04-01-2024 End: 04-01-2024 ambulatory TONE H ITZKOWITZ Not Available Start: 02-11-2024 End: 02-11-2024 ambulatory MD Lisa Hennessy Work Phone: [facility] Work Phone: Start: 02-11-2024 End: 02-11-2024 Patient encounter procedure MD Lisa Hennessy Work Phone: [facility] Work Phone: Start: 02-11-2024 Registered Recurring MD Lisa fernandes [facility] Phone: [facility] Work Phone: Start: 02-01-2024 End: 02-01-2024 ambulatory HOWARD SCHUMACHER Not Available Start: 11-09-2023 End: 11-09-2023 ambulatory TONE Maxx ITZRADHA Not Available Start: 09-29-2023 End: 09-29-2023 ambulatory Tone Itzkowitz Facility:[facility] Start: 09-24-2023 End: 09-24-2023 ambulatory TONE Maxx ITZSHIRATZ Not Available Start: 07-28-2023 End: 07-28-2023 ambulatory MD Lisa Hennessy Work Phone: [facility] Work Phone: Start: 07-28-2023 End: 07-28-2023 Departed Referred MD Lisa Hennessy Work Phone: [facility] [place] Work Phone: Start: 07-02-2023 Registered Recurring MD Lisa fernandes Work Phone: [facility] Work Phone: Start: 04-16-2023 End: 04-16-2023 ambulatory MD Lisa Hennessy Work Phone: [facility] Work Phone: Start: 04-16-2023 End: 04-16-2023 Registered Recurring MD Lisa Hennessy Work Phone: [facility] Work Phone: Start: 03-12-2023 End: 03-12-2023 ambulatory MD Lisa Hennessy Work Phone: [facility] Work Phone: Start: 03-12-2023 End: 03-12-2023 Registered Recurring MD Lisa Hennessy Work Phone: [facility] Work Phone: Start: 12-31-2022 End: 12-31-2022 ambulatory MD Lsia Hennessy Work Phone: [facility] Work Phone: Start: 12-31-2022 End: 12-31-2022 Registered Recurring MD Lisa Hennessy [facility]: [facility] Work Phone: Start: 09-11-2022 End: 09-11-2022 ambulatory MD Lisa Hennessy Work Phone: [facility] Work Phone: Start: 09-11-2022 End: 09-11-2022 Registered Recurring MD Lisa Hennessy [facility] Work Phone: Start: 06-18-2022 End: 06-18-2022 ambulatory MD Lisa Hennessy Work Phone: [facility] Work Phone: Start: 06-18-2022 End: 06-18-2022 Registered Recurring MD Lisa Hennessy [facility] Start: 04-02-2022 End: 04-02-2022 Registered Recurring MD Howard Schumacher [facility] Start: 03-14-2022 End: 03-14-2022 Registered Recurring MD Howard Schumacher [facility] Start: 03-07-2022 End: 03-07-2022 Admission to same day surgery center MD Howard Schumacher Work Phone: [facility] [place] Start: 03-05-2022 End: 03-05-2022 Patient encounter procedure MD Howard Schumacher Work Phone: [facility] Start: 02-18-2022 End: 02-18-2022 Admission to same day surgery center MD Howard Schumacher [facility] [place] Start: 02-14-2022 End: 02-14-2022 Patient encounter procedure MD Lisa Hennessy Work Phone: [facility] Start: 02-10-2022 End: 02-10-2022 Patient encounter procedure MD Lisa Hennessy Work Phone: [facility] Start: 02-07-2022 Registered Recurring MD Lisa fernandes Work Phone: [facility] Start: 01-01-2022 End: 01-01-[address] HOWARD SCHUMACHER Facility:[facility] Start: 12-25-2021 End: 12-26-[address] HOWARD SCHUMACHER Facility:[facility] Start: 12-13-2021 Encounter for genera l adult medical examination without abnormal findings DR HOWARD SCHUMACHER [facility] Start: 12-09-2021 End: 12-10-[address] HOWARD [...] Visit [facility] [address] [place] [phone] Howard Schumacher MD [address] [place] [phone] [facility] Start: 10-06-2024 End: 10-06-2024 Patient encounter procedure 10/06/2024 11:10 AM EDT Procedure Visit [facility] [address] [facility] [address] [place] [phone] Bandar Espinosa, HERMILO [address] [facility] [address] [place] [address] [facility] Start: 09-30-2024 End: 09-30-2024 Patient encounter procedure 09/30/2024 10:15 AM EST Office Visit [facility] [address] [facility] [address] [place] [address] Tone Magana, [address] [facility] [address] [place] [address] [address] [facility] Start: 08-11-2024 [...] of medications Expected: 08/01/2024 (Approximate), Expires: 08/01/2025 [facility] Work Phone: Comment on above: Expected: 08/01/2024 (Approximate), Expires: 08/01/2025 Start: 08-01-2024 End: 08-01-2025 CBC W Auto Differential panel - Blood CBC and differential Lab Routine Encounter for long-term (current) use of medications Expected: 08/01/2024 (Approximate), Expires: 08/01/2025 [facility] Comment on above: Expected: 08/01/2024 (Approximate), Expires: 08/01/2025 Start: 08-01-2024 End: 08-01-2025 Hepatic function 2000 panel - Serum or Plasma Hepatic function panel Lab Routine Encounter for long-term (current) use of medications Expected: 08/01/2024 (Approximate), Expires: 08/01/2025 [facility] Comment on above: Expected: 08/01/2024 (Approximate), Expires: 08/01/2025 Start: 08-01-2024 End: 08-01-2025 Lipid 1996 panel - Serum or Plasma Lipid panel Lab Routine Dyslipidemia (CMS/HCC) Expected: 08/01/2024 (Approximate), Expires: 08/01/2025 [facility] Comment on above: Expected: 08/01/2024 (Approximate), Expires: 08/01/2025 Start: 08-01-2024 End: 08-01-2024 Patient encounter procedure 08/01/2024 1:00 PM EST Office Visit [facility] [address] [place] [address] Howard Schumacher MD [address] [place] [phone] [facility] Start: 07-28-2024 End: 07-28-2024 Patient encounter procedure 07/28/2024 11:00 AM EST Office Visit [facility] [address] [place] [address] [place] [phone] Bandar Espinosa DPM [address] [address] Arrived [facility] Comment on above: Arrived Start: 03-27-2024 Influenza vaccination Influenza Vacc ine (#1) [facility] Start: 03-14-2022 Registered Recurring [id number] [facility] Start: 03-07-2022 [facility] Work Phone: Start: 03-07-2022 OR Wound Debridement/I&D/Hydradeni tis (Right) OR Wound Debridement/I&D/Hydrad enitis (Right) [facility] Start: 03-07-2022 [facility] Work Phone: Start: 03-07-2022 End: 03-07-2022 Admission to same day surgery center Departed Surgical Day Care [facility] [place] Start: 03-05-2022 End: 03-05-2022 Patient encounter procedure Departed Clinical [facility] Start: 02-18-2022 [facility] Work Phone: Start: 02-18-2022 [facility] Work Phone: Start: 06-11-2000 Pneumococcal Vaccine : 65+ Years (2 of 2 - PCV) Pneumococcal Vaccine: 65+ Years (2 of 2 - PCV) [facility] Start: 1988 Screening for malign ant neoplasm of cervix [facility] Start: 1979 Screening for malign ant neoplasm of cervix Pap Smear [facility] Start: 1958 Medicare Annual Well ness (AWV) Medicare Annual Wellness (AWV) [facility] Start: 1958 Screening for malign ant neoplasm of colon [facility] Adenosine monophosphate.cyclic [Moles/volume] in Serum or Plasma [facility] Comprehensive metabo lic 2000 panel - Serum or Plasma [facility] DXA Skeletal system. axial Views for bone density [facility] Work Phone: DXA Skeletal system. axial Views for bone density [facility] Homogenous nuclear A b pattern [Titer] in Serum [facility] MG Breast - bilatera l Diagnostic [facility] MG Breast - bilatera l Diagnostic [facility] MG Breast - bilatera l Screening [facility] Needle biopsy [facility] Work Phone: NM Whole body Bone Views [facility] Nuclear Ab [Titer] i n Serum [facility] Patient Education Anastrozole [facility] Work Phone: Patient referral [facility] Work Phone: Rheumatoid factor [Units/volume] in Serum or Plasma [facility] Ultrasonic guidance for needle biopsy [facility] Immunizations Immunization Date Immunization Notes Care Provider Fa cility 06-04-2023 RSV, recombinant, protein subunit RSVpreF, adjuvant reconstitu, 120mcg/0.5mL, PF (Arexvy) Tone Itzkowitz DO Work Phone: [facility] 05-21-2023 Influenza, Seasonal, Quadrivalent, Adjuvanted Tone Itzkowitz DO Work Phone: [facility] 05-21-2023 influenza virus vacc ine, unspecified formulation Tone Itzkowitz DO Work Phone: [facility] 05-13-2022 influenza, injectabl e, quadrivalent, preservative free Tone Itzkowitz DO Work Phone: [facility] 10-29-2021 COVID-19 mRNA-1273 (Moderna) MD Lisa Hennessy Work Phone: [facility] 06-19-2021 COVID-19 mRNA-1273 (Marta) MD Lisa Hennessy Work Phone: [facility] 06-19-2021 influenza, injectabl e, quadrivalent, preservative free Tone Itzkowitz DO Work Phone: [facility] 10-26-2020 COVID-19 mRNA-1273 (Moderna) MD Lisa Hennessy Work Phone: [facility] 09-28-2020 COVID-19 mRNA-1273 (Marta) MD Lisa Hennessy Work Phone: [facility] 04-05-2020 influenza, injectabl e, quadrivalent, preservative free Tone Itzkowitz DO Work Phone: [facility] 06-11-1999 pneumococcal polysaccharide vaccine, 23 valent Tone Itzkowitz DO Work Phone: [facility] Payers Date Payer Category Payer Medicare (Managed Care) [employer] [id number] 2024 Unknown [employer] [id number] 2024-Present [address] [id number] [id number] 2024 Unknown [id number] 2023 Self-pay [id number] 2023 Medicare [id number] 1959 Unknown [id number] 1958 Unknown [id number]. 593 1958 Unknown [id number] [id number]. 593 1958 Unknown [id number] [id number]. 593 1958 Unknown [id number] [id number]. 1259 1958 Unknown [id number] [id number]. 1259 1958 Unknown [id number] 2.16.840.1.265705.3.579.2. 1259 1958 Unknown [id number] [id number]. 1259 1958 Unknown [id number] [id number]. 1259 1958 Unknown [id number] 2.16.840.1.385127.3.579.2. 1259 1958 Unknown [id number] [id number]. 1259 Unknown Casandra Brownlee [facility] [id number] Unknown [id number]. 531 Unknown [id number]. 531 Social History Date Type Detail Facility Start: 04-12-1992 End: 04-12-2022 Tobacco smoking status [facility] Smoker (finding) [facility] Start: 1960 Sex Assigned At Female [facility] Start: 06-11-2022 End: 08-22-2024 Tobacco smoking status PRIS Ex-smoker (finding) [facility] Start: 04-12-1992 End: 04-12-2022 History of tobacco use Cigarette Smoker [facility] Start: 08-04-2023 End: 04-01-2024 Cigarettes smoked [...] [facility] Start: 08-22-2024 Sex Female (finding) [facility] Goals Date Patient Goal Desired Activity /State [...] risk for fall Breast cancer (CMS/HCC) [facility] ER/IN + Her2 neg Genetic testing negative Measles [...] ORTHO: Minimal pain on palpation to the [id number] toe nail ASSESSMENT 14 d s/p permanent [...] Bandar Espinosa DPM documented in this encounter [facility] 08-01-2024 History of Presen t illness [...] Orders Lipid panel documented in this encounter [facility] 07-28-2024 History of Presen t illness [...] At low risk for fall Breast cancer ([facility] ER/IN + Her2 neg Genetic testing negative Measles [...] Bandar Espinosa DPM documented in this encounter [facility] 04-16-2023 Progress note Note Date/Time April 16, 2023 12:44pm [facility] [place] [address] Hem/Onc Follow Up Note - OP Signed Patient: Denia Al MR#: [id number] : 1960 Acct:[id number] Age/Sex: 62 / F Type: REG RCR [...] She had follow up CT scan of [facility] abdomen/pelvis done at [facility] yesterday. This was done to evaluate her post operatively after large, non malignant adnexal mass was removed on 01/21/2023 at [facility]. Denies weight loss, lymphadenopathy, chest pain, [...] 13 cm. She was urgently transferred to [facility] and underwent total hysterectomy, bilateral salpingo-oophorectomy and [...] daily. OK for 3 month f/u with [facility] and 6 month f/u with me, sooner [...] reviewed pathology results showing Invasive Lobular Carcinoma, Goodells histologic score 8/9 (score 3), size 50mm, margins negative for carcinoma, ER 95%, IN 95%, Her2 1+ by IHC, negative. 2 sentinel lymph nodes negative for involvement by tumor. pT2 pN0 Mx. Interestingly, original pathology was invasive ductal carcinoma (lumpectomy final pathology invasive lobular carcinoma). --No residual fullness or pain at surgical site. Discussed Oncotype Dx--will send pathology for testing and followup in 2 weeks. Moderate complexity 35 minute followup visit. 02/07/2022: Phone followup today to discuss [facility] tumor board discussion forplan with Dr. Magana for invasive ductal carcinoma of right breast. I contacted patient today after discussion in [facility] Tumor Board this am. Right axillary ultrasound [...] ductal carcinoma (provisional grade 2) ER 95%, IN 95%, Her-2 equivocal IHC 1+ with equivocal [...] ovarian or other cancers. I reviewed her [facility] mammography 12/25/21 and ultrasound 01/01/2022 reports. Breast mass is about 3.6cm in greatest dimension on US (3.8 cm on mammogram). US guided breast biopsy on 01/01/2022 revealed invasive ductal carcinoma (provisional grade 2) ER 95%, IN 95%, Her-2 equivocal IHC 1+ with equivocal [...] week, I will discuss her case at [facility] tumor board 02/03/2022 then coordinate phone followup to discuss multidisciplinary planof care. DIAGNOSIS: New diagnosis right upper inner quadrant breast cancer 3.6cm primary by US (clinical T2 Nx Mx) --01/01/2022 biopsy: invasive ductal carcinoma (provisional grade 2) ER 95%, IN 95%, Her-2 equivocal IHC 1+ with equivocal FISH (HER2/CEP 17 1.4; Her2 copy number 4.0). --02/18/2022 lumpectomy with sentinel lymph node biopsy: Invasive Lobular Carcinoma, Goodells histologic score 8/9 (score 3), size 50mm, margins negative for carcinoma, ER 95%, IN 95%, Her2 1+ by IHC, negative. 2 [...] Negative for environmental allergies and food allergies. [facility] - Medical History Medical History: Medical History [...] lymph node biopsy now Invasive Lobular Carcinoma, Goodells histologic score 8/9 (score 3), size 50mm, margins negative for carcinoma, ER 95%, IN 95%, Her2 1+ by IHC, negative. 2 [...] invasive ductal carcinoma (provisional grade 2)ER 95%, IN 95%, Her-2 equivocal IHC 1+ with equivocal [...] week, I will discuss her case at [facility] tumor board 02/03/2022 then coordinate phone followup [...] 50mm, margins negative for carcinoma, ER 95%, IN 95%, Her2 1+ byIHC, negative. 2 sentinel lymph nodes negative for involvement by tumor. pT2 pN0 Mx. ----Today we discussed Oncotype Dx testing due to high grade ER+, IN+, Her2 negative cancer. She understands that if [...] in 2 years (03/2024). Next f/u with [facility] as well as Dr. Magana for surveillance. [...] 13 cm. She was urgently transferred to [facility] and underwent total hysterectomy, bilateral salpingo-oophorectomy and [...] negative mammogram on December 29, 2022. 04/16/2023: Dneia is here for interval 1 month follow [...] CT scan of the abdomen/pelvis done at [facility] yesterday. This was done to evaluate her post operatively after large, non malignant adnexal mass was removed on 01/21/2023 at [facility]. She was told her CT scan [...] and bilateral salpingo-oophorectomy on 01/21/2023 at the [facility]. Pathology returned consistent with benign, mucinous cystoadenoma [...] and bilateral salpingo-oophorectomy on 01/21/2023 at the [facility]. Pathology returned consistent with benign, mucinous cystoadenoma [...] for coordination of care (as documented) and [id number] counseling of patient and/or family. Dictated By: Ciera Vitale APRN DD/ [id number] Signed By: <Electronically signed by ALEX Vitale> 04/16/23 125 [facility] Work Phone: 1(878) 825-892708-21-2023 Progress note Author Ciera Vitale [facility] March 16, 2023 3:20pm Note Date/Time March 12, 2023 1: 58pm [facility] [place] [address] Hem/Onc Follow Up Note - OP Signed with [facility] Patient: Denia Al MR#: [id number] : 1960 Acct:[id number] Age/Sex: 62 / F Type: REG RCR [...] of polyarthralgia/myalgias and synovitis. Will refer patientto [place] [facility] - and she was informed of [...] 13 cm. She was urgently transferred to [facility] and underwent total hysterectomy, bilateral salpingo-oophorectomy and [...] daily. OK for 3 month f/u with [facility] and 6 month f/u with me, sooner [...] reviewed pathology results showing Invasive Lobular Carcinoma, Goodells histologic score 8/9 (score 3), size 50mm, margins negative for carcinoma, ER 95%, IN 95%, Her2 1+ by IHC, negative. 2 sentinel lymph nodes negative for involvement by tumor. pT2 pN0 Mx. Interestingly, original pathology was invasive ductal carcinoma (lumpectomy final pathology invasive lobular carcinoma). --No residual fullness or pain at surgical site. Discussed Oncotype Dx--will send pathology for testing and followup in 2 weeks. Moderate complexity 35 minute followup visit. 02/07/2022: Phone followup today to discuss [facility] tumor board discussion forplan with Dr. Magana for invasive ductal carcinoma of right breast. I contacted patient today after discussion in [facility] Tumor Board this am. Right axillary ultrasound [...] ductal carcinoma (provisional grade 2) ER 95%, IN 95%, Her-2 equivocal IHC 1+ with equivocal [...] ovarian or other cancers. I reviewed her [facility] mammography 12/25/21 and ultrasound 01/01/2022 reports. Breast mass is about 3.6cm in greatest dimension on US (3.8 cm on mammogram). US guided breast biopsy on 01/01/2022 revealed invasive ductal carcinoma (provisional grade 2) ER 95%, IN 95%, Her-2 equivocal IHC 1+ with equivocal [...] week, I will discuss her case at [facility] tumor board 02/03/2022 then coordinate phone followup to discuss multidisciplinary planof care. DIAGNOSIS: New diagnosis right upper inner quadrant breast cancer 3.6cm primary by US (clinical T2 Nx Mx) --01/01/2022 biopsy: invasive ductal carcinoma (provisional grade 2) ER 95%, IN 95%, Her-2 equivocal IHC 1+ with equivocal FISH (HER2/CEP 17 1.4; Her2 copy number 4.0). --02/18/2022 lumpectomy with sentinel lymph node biopsy: Invasive Lobular Carcinoma, Lynda histologic score 8/9 (score 3), size 50mm, margins negative for carcinoma, ER 95%, IN 95%, Her2 1+ by IHC, negative. 2 [...] Negative for environmental allergies and food allergies. [facility] - Medical History Medical History: Medical History [...] lymph node biopsy now Invasive Lobular Carcinoma, Goodells histologic score 8/9 (score 3), size 50mm, margins negative for carcinoma, ER 95%, IN 95%, Her2 1+ by IHC, negative. 2 [...] invasive ductal carcinoma (provisional grade 2)ER 95%, IN 95%, Her-2 equivocal IHC 1+ with equivocal [...] week, I will discuss her case at [facility] tumor board 02/03/2022 then coordinate phone followup to discuss multidisciplinary plan of care. High complexity visit--60 min face to face, 30 min to review outside records andcoordinate tumor board discussion of plan. 03/14/2022: Here for followup after right breast lumpectomy/sentinel lymph node on 02/18/2022. She had evacuation of post op hematoma on 03/07/2022. We reviewedpathology showing Invasive Lobular Carcinoma, Goodells histologic score 8/9 (score 3), size 50mm, margins negative for carcinoma, ER 95%, IN 95%, [facility]. 2 sentinel lymph nodes negative for involvement by tumor. pT2 pN0 Mx. ----Today we discussed Oncotype Dx testing due to high grade ER+, IN+, Her2 negative cancer. She understands that if [...] in 2 years (03/2024). Next f/u with [facility] as well as Dr. Magana for surveillance. [...] 13 cm. She was urgently transferred to [facility] and underwent total hysterectomy, bilateral salpingo-oophorectomy and [...] any underlying bonypathology and also order ESR/CRP, CLEVEALND, Rheumatoid factor, and CCP antibody to assess for any underlying rheumatological process/PMR/inflammation. If work up and bone scan are negative and her symptoms improve off anastrazole; we will need to discuss switching to letrozole vs tamoxifen. 02/19/2023: Increased after surgery for large right adnexal mass; status post total hysterectomy and bilateral salpingo-oophorectomy on 01/21/2023 at the [facility]. Pathology returned consistent with benign, mucinous cystoadenoma [...] and bilateral salpingo-oophorectomy on 01/21/2023 at the [facility]. Pathology returned consistent with benign, mucinous cystoadenoma [...] for coordination of care (as documented) and lkdt-me-ncud counseling of patient and/or family. Dictated By: Ciera Vitale APRN DD/ [id number] Signed By: <Electronically signed by ALEX Vitale> 03/12/23 1409 [facility] Work Phone: [phone]) 780-900107-27-2023 Progress note Author Ciera Vitale [facility] February 19, 2023 4:56pm Note Date/Time February 19, 2023 2:51 pm [facility] [place] [id number] Hem/Onc Follow Up Note - OP Signed Patient: eDnia Al MR#: [id number] : 1960 Acct:[id number] Age/Sex: 62 / F Type: REG RCR [...] 13 cm. She was urgently transferred to [facility] and underwent total hysterectomy, bilateral salpingo-oophorectomy and [...] daily. OK for 3 month f/u with [facility] and 6 month f/u with me, sooner [...] reviewed pathology results showing Invasive Lobular Carcinoma, Goodells histologic score 8/9 (score 3), size 50mm, margins negative for carcinoma, ER 95%, IN 95%, Her2 1+ by IHC, negative. 2 sentinel lymph nodes negative for involvement by tumor. pT2 pN0 Mx. Interestingly, original pathology was invasive ductal carcinoma (lumpectomy final pathology invasive lobular carcinoma). --No residual fullness or pain at surgical site. Discussed Oncotype Dx--will send pathology for testing and followup in 2 weeks. Moderate complexity 35 minute followup visit. 02/07/2022: Phone followup today to discuss [facility] tumor board discussion forplan with Dr. Magana for invasive ductal carcinoma of right breast. I contacted patient today after discussion in [facility] Tumor Board this am. Right axillary ultrasound [...] ductal carcinoma (provisional grade 2) ER 95%, IN 95%, Her-2 equivocal IHC 1+ with equivocal [...] ovarian or other cancers. I reviewed her [facility] mammography 12/25/21 and ultrasound 01/01/2022 reports. Breast mass is about 3.6cm in greatest dimension on US (3.8 cm on mammogram). US guided breast biopsy on 01/01/2022 revealed invasive ductal carcinoma (provisional grade 2) ER 95%, IN 95%, Her-2 equivocal IHC 1+ with equivocal [...] week, I will discuss her case at [facility] tumor board 02/03/2022 then coordinate phone followup to discuss multidisciplinary planof care. DIAGNOSIS: New diagnosis right upper inner quadrant breast cancer 3.6cm primary by US (clinical T2 Nx Mx) --01/01/2022 biopsy: invasive ductal carcinoma (provisional grade 2) ER 95%, IN 95%, Her-2 equivocal IHC 1+ with equivocal FISH (HER2/CEP 17 1.4; Her2 copy number 4.0). --02/18/2022 lumpectomy with sentinel lymph node biopsy: Invasive Lobular Carcinoma, Lynda histologic score 8/9 (score 3), size 50mm, margins negative for carcinoma, ER 95%, IN 95%, Her2 1+ by IHC, negative. 2 [...] Negative for environmental allergies and food allergies. [facility] - Medical History Medical History: Medical History [...] Other Additional comments: Patient: Denia Al MR#: [id number] : 1960 Acct:[id number] Age/Sex: 62 / F ADM Date: 3 Loc: XT Room: Type: [facility] RCR Attending Dr: Lisa Hennessy MD Copies [...] lymph node biopsy now Invasive Lobular Carcinoma, Goodells histologic score 8/9 (score 3), size 50mm, margins negative for carcinoma, ER 95%, IN 95%, Her2 1+ by IHC, negative. 2 [...] invasive ductal carcinoma (provisional grade 2)ER 95%, IN 95%, Her-2 equivocal IHC 1+ with equivocal [...] week, I will discuss her case at [facility] tumor board 02/03/2022 then coordinate phone followup [...] 50mm, margins negative for carcinoma, ER 95%, IN 95%, [facility], [facility]. 2 sentinel lymph nodes negative for involvement by tumor. pT2 pN0 Mx. ----Today we discussed Oncotype Dx testing due to high grade ER+, IN+, Her2 negative cancer. She understands that if [...] in 2 years (03/2024). Next f/u with [facility] as well as Dr. Magana for surveillance. [...] 13 cm. She was urgently transferred to [facility] and underwent total hysterectomy, bilateral salpingo-oophorectomy and [...] and bilateral salpingo-oophorectomy on 01/21/2023 at the [facility]. 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 Plan: Hold anastrazole x 2 weeks; restart thereafter. Notify clinic sooner than next scheduled appointment if she is having increased issues, side effects. (4) Adnexal mass Diagnosed with large right adnexal mass (~ 13 cm) ; status post total hysterectomy and bilateral salpingo-oophorectomy on 01/21/2023 at the [facility]. Pathology returned consistent with benign, mucinous cystoadenoma [...] for coordination of care (as documented) and iqak-ew-pmsy counseling of patient and/or family. Dictated By: Ciera Vitale APRN DD/ [id number] Signed By: <Electronically signed by ALEX Vitale> 02/19/23 9524 [facility] Work Phone: 1([phone]) 263-224006-08-2023 Progress note Author Lisa Hennessy [facility] January 01, 2023 8:42am Note Date/Time December 31, 2022 1:28p [facility] at [address] [address] Hem/Onc Follow Up Note - OP Signed Patient: Denia Al MR#: [id number] : 1960 Acct:[id number] Age/Sex: 62 / F Type: REG RCR [...] daily. OK for 3 month f/u with [facility] and 6 month f/u with me, sooner [...] 50mm, margins negative for carcinoma, ER 95%, IN 95%, Her2 1+ by IHC, negative. 2 sentinel lymph nodes negative for involvement by tumor. pT2 pN0 Mx. Interestingly, original pathology was invasive ductal carcinoma (lumpectomy final pathology invasive lobular carcinoma). --No residual fullness or pain at surgical site. Discussed Oncotype Dx--will send pathology for testing and followup in 2 weeks. Moderate complexity 35 minute followup visit. 02/07/2022: Phone followup today to discuss [facility] tumor board discussion forplan with Dr. Magana for invasive ductal carcinoma of right breast. I contacted patient today after discussion in [facility] Tumor Board this am. Right axillary ultrasound was negative for adenopathy. Since HER2 is indeterminate and node negative, we recommended upfront lumpectomy. She will schedule with Dr. Maagna and I will meet with her 2 weeks post operatively to discuss pathology results and adjuvant therapy options. Moderate complexity phone followup. ---- Reason for Consultation: Palpable right breast mass--biopsy in December 2021 shows invasive ductal carcinoma (provisional grade 2) ER 95%, IN 95%, Her-2 equivocal IHC 1+ with equivocal [...] ovarian or other cancers. I reviewed her [facility] mammography 12/25/21 and ultrasound 01/01/2022 reports. Breast mass is about 3.6cm in greatest dimension on US (3.8 cm on mammogram). US guided breast biopsy on 01/01/2022 revealed invasive ductal carcinoma (provisional grade 2) ER 95%, IN 95%, Her-2 equivocal IHC 1+ with equivocal [...] week, I will discuss her case at [facility] tumor board 02/03/2022 then coordinate phone followup to discuss multidisciplinary planof care. High complexity visit--60 min face to face, 30 min to review outside records and coordinate tumor board discussion of plan. DIAGNOSIS: New diagnosis right upper inner quadrant breast cancer 3.6cm primary by US (clinical T2 Nx Mx) --01/01/2022 biopsy: invasive ductal carcinoma (provisional grade 2) ER 95%, IN 95%, Her-2 equivocal IHC 1+ with equivocal FISH (HER2/CEP 17 1.4; Her2 copy number 4.0). --02/18/2022 lumpectomy with sentinel lymph node biopsy: Invasive Lobular Carcinoma, Lynda histologic score 8/9 (score 3), size 50mm, margins negative for carcinoma, ER 95%, IN 95%, Her2 1+ by IHC, negative. 2 [...] 50mm, margins negative for carcinoma, ER 95%, IN 95%, Her2 1+ by IHC, negative. 2 [...] invasive ductal carcinoma (provisional grade 2)ER 95%, IN 95%, Her-2 equivocal IHC 1+ with equivocal [...] biopsy is + for cancer, especially if [id number], she should return to consent for neoadjuvant chemotherapy with TCHP. Following her US and biopsy within the next week, I will discuss her case at [facility] tumor board 02/03/2022 then coordinate phone followup to discuss multidisciplinary plan of care. High complexity visit--60 min face to face, 30 min to review outside records andcoordinate tumor board discussion of plan. 03/14/2022: Here for followup after right breast lumpectomy/sentinel lymph node on 02/18/2022. She had evacuation of post op hematoma on 03/07/2022. We reviewedpathology showing Invasive Lobular Carcinoma, Goodells histologic score 8/9 (score 3), size 50mm, margins negative for carcinoma, ER 95%, IN 95%, [facility], [facility]. 2 sentinel lymph nodes negative for involvement by tumor. pT2 pN0 Mx. ----Today we discussed Oncotype Dx testing due to high grade ER+, IN+, Her2 negative cancer. She understands that if [...] in 2 years (03/2024). Next f/u with [facility] as well as Dr. Magana for surveillance. [...] for coordination of care (as documented) and boyd-si-itim counseling of patient and/or family. Dictated By: Lisa Hennessy MD DD/ [id number] Signed By: <Electronically signed by MD Lisa Hennessy> 01/01/23 0842 [facility] Work Phone: [phone]) 839-823502-16-2023 Progress note Author Ciera Vitale [facility] September 11, 2022 4:51pm Note Date/Time September 11, 2022 4:47pm [facility] [place] [address] Hem/Onc Follow Up Note - OP Signed Patient: Denia Al MR#: [id number] : 1960 Acct:[id number] Age/Sex: 62 / F Type: REG RCR [...] daily. OK for 3 month f/u with [facility] and 6 month f/u with me, sooner [...] 50mm, margins negative for carcinoma, ER 95%, IN 95%, Her2 1+ by IHC, negative. 2 sentinel lymph nodes negative for involvement by tumor. pT2 pN0 Mx. Interestingly, original pathology was invasive ductal carcinoma (lumpectomy final pathology invasive lobular carcinoma). --No residual fullness or pain at surgical site. Discussed Oncotype Dx--will send pathology for testing and followup in 2 weeks. Moderate complexity 35 minute followup visit. 02/07/2022: Phone followup today to discuss [facility] tumor board discussion forplan with Dr. Magana for invasive ductal carcinoma of right breast. I contacted patient today after discussion in [facility] Tumor Board this am. Right axillary ultrasound [...] ductal carcinoma (provisional grade 2) ER 95%, IN 95%, Her-2 equivocal IHC 1+ with equivocal [...] ovarian or other cancers. I reviewed her [facility] mammography 12/25/21 and ultrasound 01/01/2022 reports. Breast mass is about 3.6cm in greatest dimension on US (3.8 cm on mammogram). US guided breast biopsy on 01/01/2022 revealed invasive ductal carcinoma (provisional grade 2) ER 95%, IN 95%, Her-2 equivocal IHC 1+ with equivocal [...] week, I will discuss her case at [facility] tumor board 02/03/2022 then coordinate phone followup to discuss multidisciplinary planof care. High complexity visit--60 min face to face, 30 min to review outside records and coordinate tumor board discussion of plan. DIAGNOSIS: New diagnosis right upper inner quadrant breast cancer 3.6cm primary by US (clinical T2 Nx Mx) --01/01/2022 biopsy: invasive ductal carcinoma (provisional grade 2) ER 95%, IN 95%, Her-2 equivocal IHC 1+ with equivocal FISH (HER2/CEP 17 1.4; Her2 copy number 4.0). --02/18/2022 lumpectomy with sentinel lymph node biopsy: Invasive Lobular Carcinoma, Lynda histologic score 8/9 (score 3), size 50mm, margins negative for carcinoma, ER 95%, IN 95%, Her2 1+ by IHC, negative. 2 [...] Negative for environmental allergies and food allergies. [facility] - Medical History Medical History: Medical History [...] lymph node biopsy now Invasive Lobular Carcinoma, Goodells histologic score 8/9 (score 3), size 50mm, margins negative for carcinoma, ER 95%, IN 95%, Her2 1+ by IHC, negative. 2 [...] invasive ductal carcinoma (provisional grade 2)ER 95%, IN 95%, Her-2 equivocal IHC 1+ with equivocal [...] week, I will discuss her case at [facility] tumor board 02/03/2022 then coordinate phone followup [...] 50mm, margins negative for carcinoma, ER 95%, IN 95%, [facility], [facility]. 2 sentinel lymph nodes negative for involvement by tumor. pT2 pN0 Mx. ----Today we discussed Oncotype Dx testing due to high grade ER+, IN+, Her2 negative cancer. She understands that if [...] in 2 years (03/2024). Next f/u with [facility] as well as Dr. Magana for surveillance. [...] for coordination of care (as documented) and vhgf-fu-czhu counseling of patient and/or family. Dictated By: Ciera Vitale APRN DD/ 43 Signed By: <Electronically signed by ALEX Vitale> 09/11/22 1651 [facility] Work Phone: 1([phone]) 259-692911-23-2022 Progress note Author Kylee Lindsay [facility] June 18, 2022 9:21am Note Date/Time June 18, 2022 8:35am [facility] at [address] [address] Rad Onc Follow Up Note - OP Signed Patient: Denia Al MR#: [id number] : 1960 Acct:[id number] Age/Sex: 62 / F Type: REG RCR [...] upper outer quadrant of the right breast, ER/IN positive HER2 negative. We reviewed her pathology [...] confirmed invasive ductal carcinoma, provisional grade 2, ER/IN positive with HER2 equivocal IHC 1+ with equivocalFISH. HER2 copy #4. Clinical stage T2 NX MX. February 07, 2022 right axillary ultrasound was negative for adenopathy. Since MGG2sto indeterminate node-negative she was recommended for upfront surgery. January 16, 2022 [facility] testing returned negative February 18, 2022 patient proceeded to right breast lumpectomy with sentinel lymph node biopsy. Final pathology confirmed invasive lobular carcinoma, grade 3, 5 cm in size with margins negative. Closest margin was 0.5 mm anteriorly. There was no LVSI identified. There was associated LCIS. ER/IN +2 sentinel nodes negative for tumor. pT2N0 [...] signed by Kylee Lindsay MD> 06/18/22 0921 [facility] Work Phone: [phone] 211-607711-16-2022 Progress note Author Lisa Hennessy [facility] June 11, 2022 9:37pm Note Date/Time June 11, 2022 1:19pm [facility] [place] [address] Hem/Onc Follow Up Note - OP Signed Patient: Denia Al MR#: [id number] : 1960 Acct:[id number] Age/Sex: 62 / F Type: REG RCR [...] daily. OK for 3 month f/u with [facility] and 6 month f/u with me, sooner [...] 50mm, margins negative for carcinoma, ER 95%, IN 95%, Her2 1+ by IHC, negative. 2 sentinel lymph nodes negative for involvement by tumor. pT2 pN0 Mx. Interestingly, original pathology was invasive ductal carcinoma (lumpectomy final pathology invasive lobular carcinoma). --No residual fullness or pain at surgical site. Discussed Oncotype Dx--will send pathology for testing and followup in 2 weeks. Moderate complexity 35 minute followup visit. 02/07/2022: Phone followup today to discuss [facility] tumor board discussion forplan with Dr. Magana for invasive ductal carcinoma of right breast. I contacted patient today after discussion in [facility] Tumor Board this am. Right axillary ultrasound [...] ductal carcinoma (provisional grade 2) ER 95%, IN 95%, Her-2 equivocal IHC 1+ with equivocal [...] ovarian or other cancers. I reviewed her [facility] mammography 12/25/21 and ultrasound 01/01/2022 reports. Breast mass is about 3.6cm in greatest dimension on US (3.8 cm on mammogram). US guided breast biopsy on 01/01/2022 revealed invasive ductal carcinoma (provisional grade 2) ER 95%, IN 95%, Her-2 equivocal IHC 1+ with equivocal [...] week, I will discuss her case at [facility] tumor board 02/03/2022 then coordinate phone followup to discuss multidisciplinary planof care. High complexity visit--60 min face to face, 30 min to review outside records and coordinate tumor board discussion of plan. DIAGNOSIS: New diagnosis right upper inner quadrant breast cancer 3.6cm primary by US (clinical T2 Nx Mx) --01/01/2022 biopsy: invasive ductal carcinoma (provisional grade 2) ER 95%, IN 95%, Her-2 equivocal IHC 1+ with equivocal FISH (HER2/CEP 17 1.4; Her2 copy number 4.0). --02/18/2022 lumpectomy with sentinel lymph node biopsy: Invasive Lobular Carcinoma, Goodells histologic score 8/9 (score 3), size 50mm, margins negative for carcinoma, ER 95%, IN 95%, Her2 1+ by IHC, negative. 2 [...] 50mm, margins negative for carcinoma, ER 95%, IN 95%, Her2 1+ by IHC, negative. 2 [...] invasive ductal carcinoma (provisional grade 2)ER 95%, IN 95%, Her-2 equivocal IHC 1+ with equivocal [...] week, I will discuss her case at [facility] tumor board 02/03/2022 then coordinate phone followup to discuss multidisciplinary plan of care. High complexity visit--60 min face to face, 30 min to review outside records andcoordinate tumor board discussion of plan. 03/14/2022: Here for followup after right breast lumpectomy/sentinel lymph node on 02/18/2022. She had evacuation of post op hematoma on 03/07/2022. We reviewedpathology showing Invasive Lobular Carcinoma, Goodells histologic score 8/9 (score 3), size 50mm, margins negative for carcinoma, ER 95%, IN 95%, [facility], [facility]. 2 sentinel lymph nodes negative for involvement by tumor. pT2 pN0 Mx. ----Today we discussed Oncotype Dx testing due to high grade ER+, IN+, Her2 negative cancer. She understands that if [...] in 2 years (03/2024). Next f/u with [facility] as well as Dr. Magana for surveillance--moderate [...] and review of surveillance plan 30- minute lrsw-ec-paib visit. - Chemo Plan Chemo Plan (Dose, [...] for coordination of care (as documented) and vagf-yc-lbwn counseling of patient and/or family. Dictated By: Lisa Hennessy MD DD/ [id number] Signed By: <Electronically signed by MD Lisa Hennessy> 06/11/22 2710 [facility] Work Phone: [phone]) [phone] Consult note [facility] April 10, 2022 1:34pm Note Date/Time April 10, 2022 10:31am [facility] [place] [address] Rad Onc Consult Note - OP Signed Patient: Denia Al MR#: [id number] : 1960 Acct:[id number] Age/Sex: 61 / F Type: REG RCR [...] upper outer quadrant of the right breast, ER/IN positive HER2 negative. We reviewed her pathology [...] confirmed invasive ductal carcinoma, provisional grade 2, ER/IN positive with HER2 equivocal IHC 1+ with equivocal FISH. HER2 copy #4. Clinical stage T2 NX MX. February 07, 2022 right axillary ultrasound was negative for adenopathy. Since DKO8uil indeterminate node-negative she was recommended for upfront surgery. January 16, 2022 Inv[facility]ae testing returned negative February 18, 2022 patient proceeded to right breast lumpectomy with sentinel lymph node biopsy. Final pathology confirmed invasive lobular carcinoma, grade 3, 5 cm in size with margins negative. Closest margin was 0.5 mm anteriorly. There was no LVSI identified. There was associated LCIS. ER/IN +2 sentinel nodes negative for tumor. pT2N0 repeat HER2 IHC was negative. February 2022 Oncotype score returned 18 with no chemotherapy recommended. Today patient is overall doing well and has recovered from her surgery. She hasno new breast related complaints. She is planned for endocrine therapy. [facility] - Medical History Medical History: Medical History [...] signed by Kylee Lindsay MD> 04/10/22 1334 [facility] Work Phone: [phone]) [phone] Progress note Author Lisa Hennessy [facility] April 02, 2022 10:46am Note Date/Time April 02, 2022 8:53am [facility] [place] [address] Hem/Onc Follow Up Note - OP Signed Patient: Denia Al MR#: [id number] : 1960 Acct:[id number] Age/Sex: 61 / F Type: REG RCR [...] reviewed pathology results showing Invasive Lobular Carcinoma, Goodells histologic score 8/9 (score 3), size 50mm, margins negative for carcinoma, ER 95%, IN 95%, Her2 1+ by IHC, negative. 2 sentinel lymph nodes negative for involvement by tumor. pT2 pN0 Mx. Interestingly, original pathology was invasive ductal carcinoma (lumpectomy final pathology invasive lobular carcinoma). --No residual fullness or pain at surgical site. Discussed Oncotype Dx--will send pathology for testing and followup in 2 weeks. Moderate complexity 35 minute followup visit. 02/07/2022: Phone followup today to discuss [facility] tumor board discussion forplan with Dr. Magana for invasive ductal carcinoma of right breast. I contacted patient today after discussion in [facility] Tumor Board this am. Right axillary ultrasound [...] ductal carcinoma (provisional grade 2) ER 95%, IN 95%, Her-2 equivocal IHC 1+ with equivocal [...] ovarian or other cancers. I reviewed her [facility] mammography 12/25/21 and ultrasound 01/01/2022 reports. Breast mass is about 3.6cm in greatest dimension on US (3.8 cm on mammogram). US guided breast biopsy on 01/01/2022 revealed invasive ductal carcinoma (provisional grade 2) ER 95%, IN 95%, Her-2 equivocal IHC 1+ with equivocal [...] week, I will discuss her case at [facility] tumor board 02/03/2022 then coordinate phone followup to discuss multidisciplinary planof care. High complexity visit--60 min face to face, 30 min to review outside records and coordinate tumor board discussion of plan. DIAGNOSIS: New diagnosis right upper inner quadrant breast cancer 3.6cm primary by US (clinical T2 Nx Mx) --01/01/2022 biopsy: invasive ductal carcinoma (provisional grade 2) ER 95%, IN 95%, Her-2 equivocal IHC 1+ with equivocal FISH (HER2/CEP 17 1.4; Her2 copy number 4.0). --02/18/2022 lumpectomy with sentinel lymph node biopsy: Invasive Lobular Carcinoma, Goodells histologic score 8/9 (score 3), size 50mm, margins negative for carcinoma, ER 95%, IN 95%, Her2 1+ by IHC, negative. 2 [...] 50mm, margins negative for carcinoma, ER 95%, IN 95%, Her2 1+ by IHC, negative. 2 [...] ductal carcinoma (provisional grade 2) ER 95%, IN 95%, Her-2 equivocal IHC 1+ with equivocal [...] week, I will discuss her case at [facility] tumor board 02/03/2022 then coordinate phone followup [...] 50mm, margins negative for carcinoma, ER 95%, IN 95%, Her2 1+ byIHC, negative. 2 sentinel lymph nodes negative for involvement by tumor. pT2 pN0 Mx. ----Today we discussed Oncotype Dx testing due to high grade ER+, IN+, Her2 negative cancer. She understands that if [...] and review of adjuvant therapy options 30-minute ysex-aq-dkkt visit. - Chemo Plan Chemo Plan (Dose, Rate, Freq): Oncotype Dx testing to determine plan for adjuvant therapy. Goal of Treatment: Curative - Time with Patient Time Spent with Patient (Follow Up Visit): 35 minutes Coordination of Care & Counseling Time: Greater than 50% of time spent with patient was for coordination of care (as documented) and xylq-to-pnae counseling of patient and/or family. Dictated By: Lisa Hennessy MD DD/ 0853 Signed By: <Electronically signed by MD Lisa Hennessy> 04/02/22 1046 [facility] Work Phone: 1([phone]) 270-434308-21-2022 Progress note Author Lisa Hennessy [facility] March 16, 2022 2:02pm Note Date/Time March 15, 2022 9: 18pm [facility] at [address] [address] Hem/Onc Follow Up Note - OP Signed Patient: Denia Al MR#: [id number] : 1960 Acct:[id number] Age/Sex: 61 / F Type: REG RCR Copies to: DO Howard Floers MD~ Subjective Date/Time of Service: Date of [...] reviewed pathology results showing Invasive Lobular Carcinoma, Goodells histologic score 8/9 (score 3), size 50mm, margins negative for carcinoma, ER 95%, IN 95%, Her2 1+ by IHC, negative. 2 sentinel lymph nodes negative for involvement by tumor. pT2 pN0 Mx. Interestingly, original pathology was invasive ductal carcinoma (lumpectomy final pathology invasive lobular carcinoma). --No residual fullness or pain at surgical site. Discussed Oncotype Dx--will send pathology for testing and followup in 2 weeks. Moderate complexity 35 minute followup visit. 02/07/2022: Phone followup today to discuss [facility] tumor board discussion forplan with Dr. Magana for invasive ductal carcinoma of right breast. I contacted patient today after discussion in [facility] Tumor Board this am. Right axillary ultrasound [...] ductal carcinoma (provisional grade 2) ER 95%, IN 95%, Her-2 equivocal IHC 1+ with equivocal [...] ovarian or other cancers. I reviewed her [facility] mammography 12/25/21 and ultrasound 01/01/2022 reports. Breast mass is about 3.6cm in greatest dimension on US (3.8 cm on mammogram). US guided breast biopsy on 01/01/2022 revealed invasive ductal carcinoma (provisional grade 2) ER 95%, IN 95%, Her-2 equivocal IHC 1+ with equivocal [...] week, I will discuss her case at [facility] tumor board 02/03/2022 then coordinate phone followup to discuss multidisciplinary planof care. High complexity visit--60 min face to face, 30 min to review outside records and coordinate tumor board discussion of plan. DIAGNOSIS: New diagnosis right upper inner quadrant breast cancer 3.6cm primary by US (clinical T2 Nx Mx) --01/01/2022 biopsy: invasive ductal carcinoma (provisional grade 2) ER 95%, IN 95%, Her-2 equivocal IHC 1+ with equivocal FISH (HER2/CEP 17 1.4; Her2 copy number 4.0). --02/18/2022 lumpectomy with sentinel lymph node biopsy: Invasive Lobular Carcinoma, Goodells histologic score 8/9 (score 3), size 50mm, margins negative for carcinoma, ER 95%, IN 95%, Her2 1+ by IHC, negative. 2 [...] lymph node biopsy now Invasive Lobular Carcinoma, Goodells histologic score 8/9 (score 3), size 50mm, margins negative for carcinoma, ER 95%, IN 95%, Her2 1+ by IHC, negative. 2 [...] ductal carcinoma (provisional grade 2) ER 95%, IN 95%, Her-2 equivocal IHC 1+ with equivocal [...] week, I will discuss her case at [facility] tumor board 02/03/2022 then coordinate phone followup to discuss multidisciplinary plan of care. High complexity visit--60 min face to face, 30 min to review outside records andcoordinate tumor board discussion of plan. 03/14/2022: Here for followup after right breast lumpectomy/sentinel lymph node on 02/18/2022. She had evacuation of post op hematoma on 03/07/2022. We reviewedpathology showing Invasive Lobular Carcinoma, Goodells histologic score 8/9 (score 3), size 50mm, margins negative for carcinoma, ER 95%, IN 95%, Her2 1+ byC, negative. 2 sentinel lymph nodes negative for involvement by tumor. pT2 pN0 Mx. ----Today we discussed Oncotype Dx testing due to high grade ER+, IN+, Her2 negative cancer. She understands that if [...] for coordination of care (as documented) and [id number] counseling of patient and/or family. Dictated By: Lisa Hennessy MD DD/ 16 Signed By: <Electronically signed by MD Lisa Hennessy> 03/16/22 1405 [facility] Work Phone: 1(395) 779-609708-21-2022 Progress note Author Lisa Hennessy [facility] March 16, 2022 2:02pm Note Date/Time March 15, 2022 9: 18pm [facility] [place] [place] [address] Hem/Onc Follow Up Note - OP Signed Patient: Denia Al MR#: [id number] : 1960 Acct:[id number] Age/Sex: 61 / F Type: REG RCR [...] 50mm, margins negative for carcinoma, ER 95%, IN 95%, Her2 1+ by IHC, negative. 2 sentinel lymph nodes negative for involvement by tumor. pT2 pN0 Mx. Interestingly, original pathology was invasive ductal carcinoma (lumpectomy final pathology invasive lobular carcinoma). --No residual fullness or pain at surgical site. Discussed Oncotype Dx--will send pathology for testing and followup in 2 weeks. Moderate complexity 35 minute followup visit. 02/07/2022: Phone followup today to discuss [facility] tumor board discussion forplan with Dr. Magana for invasive ductal carcinoma of right breast. I contacted patient today after discussion in [facility] Tumor Board this am. Right axillary ultrasound [...] ductal carcinoma (provisional grade 2) ER 95%, IN 95%, Her-2 equivocal IHC 1+ with equivocal [...] ovarian or other cancers. I reviewed her [facility] mammography 12/25/21 and ultrasound 01/01/2022 reports. Breast mass is about 3.6cm in greatest dimension on US (3.8 cm on mammogram). US guided breast biopsy on 01/01/2022 revealed invasive ductal carcinoma (provisional grade 2) ER 95%, IN 95%, Her-2 equivocal IHC 1+ with equivocal [...] week, I will discuss her case at [facility] tumor board 02/03/2022 then coordinate phone followup to discuss multidisciplinary planof care. High complexity visit--60 min face to face, 30 min to review outside records and coordinate tumor board discussion of plan. DIAGNOSIS: New diagnosis right upper inner quadrant breast cancer 3.6cm primary by US (clinical T2 Nx Mx) --01/01/2022 biopsy: invasive ductal carcinoma (provisional grade 2) ER 95%, IN 95%, Her-2 equivocal IHC 1+ with equivocal FISH (HER2/CEP 17 1.4; Her2 copy number 4.0). --02/18/2022 lumpectomy with sentinel lymph node biopsy: Invasive Lobular Carcinoma, Goodells histologic score 8/9 (score 3), size 50mm, margins negative for carcinoma, ER 95%, IN 95%, Her2 1+ by IHC, negative. 2 [...] lymph node biopsy now Invasive Lobular Carcinoma, Goodells histologic score 8/9 (score 3), size 50mm, margins negative for carcinoma, ER 95%, IN 95%, Her2 1+ by IHC, negative. 2 [...] ductal carcinoma (provisional grade 2) ER 95%, IN 95%, Her-2 equivocal IHC 1+ with equivocal [...] week, I will discuss her case at [facility] tumor board 02/03/2022 then coordinate phone followup [...] 50mm, margins negative for carcinoma, ER 95%, IN 95%, Her2 1+ byIHC, negative. 2 sentinel lymph nodes negative for involvement by tumor. pT2 pN0 Mx. ----Today we discussed Oncotype Dx testing due to high grade ER+, IN+, Her2 negative cancer. She understands that if [...] for coordination of care (as documented) and [id number] counseling of patient and/or family. Dictated By: Lisa Hennessy MD DD/ 16 Signed By: <Electronically signed by MD Lisa Hennessy> 03/16/22 1402 [facility] Work Phone: 1(895) 165-346107-07-2022 Consult note Author Lisa Hennessy [facility] January 30, 2022 9:35am Note Date/Time January 29, 2022 1:35p m [facility] [place] [address] Hem/Onc Consult Note - OP Signed Patient: Denia Al MR#: [id number] : 1960 Acct:[id number] Age/Sex: 61 / F Type: REG RCR Copies to: DO Howard Flores MD~ HPI Date/Time of Service: Date of Service: 01/29/2022 Time of Service: 13:34 Referring Provider/PCP: Referring Provider: Howard Schumacher MD PCP: Howard Schumacher MD - History of Present Illness Reason for Consultation: Palpable right breast mass--biopsy in December 2021 shows invasive ductal carcinoma (provisional grade 2) ER 95%, IN 95%, Her-2 equivocal IHC 1+ with equivocal [...] ovarian or other cancers. I reviewed her [facility] mammography 12/25/21 and ultrasound 01/01/2022 reports. Breast mass is about 3.6cm in greatest dimension on US (3.8 cm on mammogram). US guided breast biopsy on 01/01/2022 revealed invasive ductal carcinoma (provisional grade 2) ER 95%, IN 95%, Her-2 equivocal IHC 1+ with equivocal [...] week, I will discuss her case at [facility] tumor board 02/03/2022 then coordinate phone followup to discuss multidisciplinary planof care. High complexity visit--60 min face to face, 30 min to review outside records and coordinate tumor board discussion of plan. [facility] - History Attestation statement: The following information [...] ductal carcinoma (provisional grade 2) ER 95%, IN 95%, Her-2 equivocal IHC 1+ with equivocal [...] for review. - Impressions I reviewed her [facility] mammography 12/25/21 and ultrasound 01/01/2022 reports. Breast [...] ductal carcinoma (provisional grade 2) ER 95%, IN 95%, Her-2 equivocal IHC 1+ with equivocal [...] week, I will discuss her case at [facility] tumor board 02/03/2022 then coordinate phone followup [...] for coordination of care (as documented) and [id number] counseling of patient and/or family. Dictated By: Lisa Hennessy MD DD/ 1334 Signed By: <Electronically signed by MD Lisa Hennessy> 01/30/22 0935 [facility] Work Phone: Evaluation note* Diagnosis Onset Date Resolution Status [id number] acute [facility] Work Phone: Evaluation note* Diagnosis Onset Date Resolution Status [id number] chronic [facility] Work Phone: Evaluation note* Diagnosis Onset Date Resolution Status Encounter for monitoring aromatase inhibitor therapy chronic [id number] chronic Osteopenia chronic Screening for osteoporosis c hronic [facility] Work Phone: Evaluation note* Diagnosis Onset Date Resolution Status Adnexal mass acute Aromatase inhibitor-associated arthralgia acute Encounter for monitoring aromatase inhibitor therapy chronic [id number] chronic Osteopenia chronic Screening for osteoporosis c [facility] Work Phone: Evaluation noteNo assessment information available [facility] Work Phone: Evaluation note* Diagnosis Onset Date Resolution Status Adnexal mass acute Aromatase inhibitor-associated arthralgia acute Encounter for monitoring aromatase inhibitor therapy chronic [id number] chronic Osteopenia chronic Screening for osteoporosis c [facility] Aromatase inhibitor-associated arthralgia acute History of bilateral salpingo-oophorectomy acute Encounter for monitoring aromatase inhibitor therapy chronic [id number] chronic Osteopenia chronic [facility] Work Phone: Evaluation note* Diagnosis Malignant neoplasm [...] tissues of limb documented in this encounter [facility] HealthcareEvaluation note* Diagnosis Arthralgia, unspecified [...] 9:13am Osteopenia chronic August 22, 2024 9:13am [facility] Work Phone: History of Present illness Narrative* [...] low risk for fall Breast cancer (CMS/HCC) [facility] ER/IN + Her2 neg Genetic testing negative Measles [...] m Physical Exam 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 HENT: Head: Normocephalic. Cardiovascular: Rate and [...] 6 months for recheck [facility] Work Phone: Progress note Author Lisa Hennessy [facility] March 16, 2022 2:02pm Note Date/Time March 15, 2022 9: 18pm [facility] at [address] [address] Hem/Onc Follow Up Note - OP Signed Patient: Denia Al MR#: [id number] : 1960 Acct:[id number] Age/Sex: 61 / F Type: REG RCR [...] on 03/05/2022 and continues followup with Dr. Magnaa. I reviewed pathology results showing Invasive Lobular Carcinoma, Lynda histologic score 8/9 (score 3), size 50mm, margins negative for carcinoma, ER 95%, IN 95%, Her2 1+ by IHC, negative. 2 sentinel lymph nodes negative for involvement by tumor. pT2 pN0 Mx. Interestingly, original pathology was invasive ductal carcinoma (lumpectomy final pathology invasive lobular carcinoma). --No residual fullness or pain at surgical site. Discussed Oncotype Dx--will send pathology for testing and followup in 2 weeks. Moderate complexity 35 minute followup visit. 02/07/2022: Phone followup today to discuss [facility] tumor board discussion forplan with Dr. Magana for invasive ductal carcinoma of right breast. I contacted patient today after discussion in [facility] Tumor Board this am. Right axillary ultrasound [...] ductal carcinoma (provisional grade 2) ER 95%, IN 95%, Her-2 equivocal IHC 1+ with equivocal [...] ovarian or other cancers. I reviewed her [facility] mammography 12/25/21 and ultrasound 01/01/2022 reports. Breast mass is about 3.6cm in greatest dimension on US (3.8 cm on mammogram). US guided breast biopsy on 01/01/2022 revealed invasive ductal carcinoma (provisional grade 2) ER 95%, IN 95%, Her-2 equivocal IHC 1+ with equivocal [...] week, I will discuss her case at [facility] tumor board 02/03/2022 then coordinate phone followup to discuss multidisciplinary planof care. High complexity visit--60 min face to face, 30 min to review outside records and coordinate tumor board discussion of plan. DIAGNOSIS: New diagnosis right upper inner quadrant breast cancer 3.6cm primary by US (clinical T2 Nx Mx) --01/01/2022 biopsy: invasive ductal carcinoma (provisional grade 2) ER 95%, IN 95%, Her-2 equivocal IHC 1+ with equivocal FISH (HER2/CEP 17 1.4; Her2 copy number 4.0). --02/18/2022 lumpectomy with sentinel lymph node biopsy: Invasive Lobular Carcinoma, Lynda histologic score 8/9 (score 3), size 50mm, margins negative for carcinoma, ER 95%, IN 95%, Her2 1+ by IHC, negative. 2 [...] lymph node biopsy now Invasive Lobular Carcinoma, Goodells histologic score 8/9 (score 3), size 50mm, margins negative for carcinoma, ER 95%, IN 95%, Her2 1+ by IHC, negative. 2 [...] ductal carcinoma (provisional grade 2) ER 95%, IN 95%, Her-2 equivocal IHC 1+ with equivocal [...] week, I will discuss her case at [facility] tumor board 02/03/2022 then coordinate phone followup [...] 50mm, margins negative for carcinoma, ER 95%, IN 95%, Her2 1+ byIHC, negative. 2 sentinel lymph nodes negative for involvement by tumor. pT2 pN0 Mx. ----Today we discussed Oncotype Dx testing due to high grade ER+, IN+, Her2 negative cancer. She understands that if [...] for coordination of care (as documented) and [id number]-[id number] counseling of patient and/or family. Dictated By: Lisa Hennessy MD DD/ 16 Signed By: <Electronically signed by MD Lisa Hennessy> 03/16/22 1402 [facility] Work Phone: Progress note Author Kylee Lindsay [facility] June 18, 2022 9:21am Note Date/Time June 18, 2022 8:35am [facility] [place] [address] Rad Onc Follow Up Note - OP Signed Patient: Denia Al MR#: [id number] : 1960 Acct:[id number] Age/Sex: 62 / F Type: REG RCR [...] upper outer quadrant of the right breast, ER/IN positive HER2 negative. We reviewed her pathology [...] confirmed invasive ductal carcinoma, provisional grade 2, ER/IN positive with HER2 equivocal IHC 1+ with equivocalFISH. HER2 copy #4. Clinical stage T2 NX MX. February 07, 2022 right axillary ultrasound was negative for adenopathy. Since [id number] indeterminate node-negative she was recommended for upfront surgery. January 16, 2022 [employer] testing returned negative February 18, 2022 patient proceeded to right breast lumpectomy with sentinel lymph node biopsy. Final pathology confirmed invasive lobular carcinoma, grade 3, 5 cm in size with margins negative. Closest margin was 0.5 mm anteriorly. There was no LVSI identified. There was associated LCIS. ER/IN +2 sentinel nodes negative for tumor. pT2N0 [...] <Electronically signed by Kylee Lindsay MD> 06/18/2221 [facility] Work Phone: Progress note Author Ciera Abelessentia healthmary kate [facility] March 12, 2023 2:09pm Note Date/Time March 12, 2023 1: 58pm [facility] at [address] [address] Hem/Onc Follow Up Note - OP Signed Patient: Denia Al MR#: [id number] : 1960 Acct:[id number] Age/Sex: 62 / F Type: REG RCR [...] 13 cm. She was urgently transferred to [facility] and underwent total hysterectomy, bilateral salpingo-oophorectomy and [...] daily. OK for 3 month f/u with [facility] and 6 month f/u with me, sooner [...] 50mm, margins negative for carcinoma, ER 95%, IN 95%, Her2 1+ by IHC, negative. 2 sentinel lymph nodes negative for involvement by tumor. pT2 pN0 Mx. Interestingly, original pathology was invasive ductal carcinoma (lumpectomy final pathology invasive lobular carcinoma). --No residual fullness or pain at surgical site. Discussed Oncotype Dx--will send pathology for testing and followup in 2 weeks. Moderate complexity 35 minute followup visit. 02/07/2022: Phone followup today to discuss [facility] tumor board discussion forplan with Dr. Magana for invasive ductal carcinoma of right breast. I contacted patient today after discussion in [facility] Tumor Board this am. Right axillary ultrasound [...] ductal carcinoma (provisional grade 2) ER 95%, IN 95%, Her-2 equivocal IHC 1+ with equivocal [...] ovarian or other cancers. I reviewed her [facility] mammography 12/25/21 and ultrasound 01/01/2022 reports. Breast mass is about 3.6cm in greatest dimension on US (3.8 cm on mammogram). US guided breast biopsy on 01/01/2022 revealed invasive ductal carcinoma (provisional grade 2) ER 95%, IN 95%, Her-2 equivocal IHC 1+ with equivocal [...] week, I will discuss her case at [facility] tumor board 02/03/2022 then coordinate phone followup to discuss multidisciplinary planof care. DIAGNOSIS: New diagnosis right upper inner quadrant breast cancer 3.6cm primary by US (clinical T2 Nx Mx) --01/01/2022 biopsy: invasive ductal carcinoma (provisional grade 2) ER 95%, IN 95%, Her-2 equivocal IHC 1+ with equivocal FISH (HER2/CEP 17 1.4; Her2 copy number 4.0). --02/18/2022 lumpectomy with sentinel lymph node biopsy: Invasive Lobular Carcinoma, Lynda histologic score 8/9 (score 3), size 50mm, margins negative for carcinoma, ER 95%, IN 95%, Her2 1+ by IHC, negative. 2 [...] Negative for environmental allergies and food allergies. [facility] - Medical History Medical History: Medical History [...] 50mm, margins negative for carcinoma, ER 95%, IN 95%, Her2 1+ by IHC, negative. 2 [...] invasive ductal carcinoma (provisional grade 2)ER 95%, IN 95%, Her-2 equivocal IHC 1+ with equivocal [...] week, I will discuss her case at [facility] tumor board 02/03/2022 then coordinate phone followup [...] 50mm, margins negative for carcinoma, ER 95%, IN 95%, [facility]. 2 sentinel lymph nodes negative for involvement by tumor. pT2 pN0 Mx. ----Today we discussed Oncotype Dx testing due to high grade ER+, IN+, Her2 negative cancer. She understands that if [...] in 2 years (03/2024). Next f/u with [facility] as well as Dr. Magana for surveillance. [...] next mammogram in December 2022. Saw Dr. Magnaa 1 month ago on 08/04/2022 with normal [...] 13 cm. She was urgently transferred to [facility] and underwent total hysterectomy, bilateral salpingo-oophorectomy and [...] and bilateral salpingo-oophorectomy on 01/21/2023 at the [facility]. Pathology returned consistent with benign, mucinous cystoadenoma [...] and bilateral salpingo-oophorectomy on 01/21/2023 at the [facility]. Pathology returned consistent with benign, mucinous cystoadenoma [...] for coordination of care (as documented) and [id number] counseling of patient and/or family. Dictated By: Ciera Vitale APRN DD/ 1351 Signed By: <Electronically signed by ALEX Vitale> 03/12/23 1409 [facility] Work Phone: Progress note Author Ciera Vitale [facility] April 16, 2023 12:52pm Note Date/Time April 16, 2023 12:44pm [facility] [place] [address] Hem/Onc Follow Up Note - OP Signed Patient: Denia Al MR#: [id number] : 1960 Acct:[id number] Age/Sex: 62 / F Type: REG RCR [...] She had follow up CT scan of [facility] abdomen/pelvis done at [facility] yesterday. This was done to evaluate her post operatively after large, non malignant adnexal mass was removed on 01/21/2023 at [facility]. Denies weight loss, lymphadenopathy, chest pain, [...] 13 cm. She was urgently transferred to [facility] and underwent total hysterectomy, bilateral salpingo-oophorectomy and [...] daily. OK for 3 month f/u with [facility] and 6 month f/u with me, sooner [...] reviewed pathology results showing Invasive Lobular Carcinoma, Goodells histologic score 8/9 (score 3), size 50mm, margins negative for carcinoma, ER 95%, IN 95%, Her2 1+ by IHC, negative. 2 sentinel lymph nodes negative for involvement by tumor. pT2 pN0 Mx. Interestingly, original pathology was invasive ductal carcinoma (lumpectomy final pathology invasive lobular carcinoma). --No residual fullness or pain at surgical site. Discussed Oncotype Dx--will send pathology for testing and followup in 2 weeks. Moderate complexity 35 minute followup visit. 02/07/2022: Phone followup today to discuss [facility] tumor board discussion forplan with Dr. Magana for invasive ductal carcinoma of right breast. I contacted patient today after discussion in [facility] Tumor Board this am. Right axillary ultrasound [...] ductal carcinoma (provisional grade 2) ER 95%, IN 95%, Her-2 equivocal IHC 1+ with equivocal [...] ovarian or other cancers. I reviewed her [facility] mammography 12/25/21 and ultrasound 01/01/2022 reports. Breast mass is about 3.6cm in greatest dimension on US (3.8 cm on mammogram). US guided breast biopsy on 01/01/2022 revealed invasive ductal carcinoma (provisional grade 2) ER 95%, IN 95%, Her-2 equivocal IHC 1+ with equivocal [...] week, I will discuss her case at [facility] tumor board 02/03/2022 then coordinate phone followup to discuss multidisciplinary planof care. DIAGNOSIS: New diagnosis right upper inner quadrant breast cancer 3.6cm primary by US (clinical T2 Nx Mx) --01/01/2022 biopsy: invasive ductal carcinoma (provisional grade 2) ER 95%, IN 95%, Her-2 equivocal IHC 1+ with equivocal FISH (HER2/CEP 17 1.4; Her2 copy number 4.0). --02/18/2022 lumpectomy with sentinel lymph node biopsy: Invasive Lobular Carcinoma, Lynda histologic score 8/9 (score 3), size 50mm, margins negative for carcinoma, ER 95%, IN 95%, Her2 1+ by IHC, negative. 2 [...] Negative for environmental allergies and food allergies. [facility] - Medical History Medical History: Medical History [...] lymph node biopsy now Invasive Lobular Carcinoma, Goodells histologic score 8/9 (score 3), size 50mm, margins negative for carcinoma, ER 95%, IN 95%, Her2 1+ by IHC, negative. 2 [...] invasive ductal carcinoma (provisional grade 2)ER 95%, IN 95%, Her-2 equivocal IHC 1+ with equivocal [...] week, I will discuss her case at [facility] tumor board 02/03/2022 then coordinate phone followup [...] 50mm, margins negative for carcinoma, ER 95%, IN 95%, [facility]. 2 sentinel lymph nodes negative for involvement by tumor. pT2 pN0 Mx. ----Today we discussed Oncotype Dx testing due to high grade ER+, IN+, Her2 negative cancer. She understands that if [...] in 2 years (03/2024). Next f/u with [facility] as well as Dr. Magana for surveillance. [...] 13 cm. She was urgently transferred to [facility] and underwent total hysterectomy, bilateral salpingo-oophorectomy and [...] CT scan of the abdomen/pelvis done at [facility] yesterday. This was done to evaluate her post operatively after large, non malignant adnexal mass was removed on 01/21/2023 at [facility]. She was told her CT scan [...] and bilateral salpingo-oophorectomy on 01/21/2023 at the [facility]. Pathology returned consistent with benign, mucinous cystoadenoma [...] and bilateral salpingo-oophorectomy on 01/21/2023 at the [facility]. Pathology returned consistent with benign, mucinous cystoadenoma [...] for coordination of care (as documented) and [id number] counseling of patient and/or family. Dictated By: Ciera Vitale APRN DD/ 1237 Signed By: <Electronically signed by ALEX Vitale> 04/16/23 1252 [facility] Work Phone: Chief Complaint and Reason for Visit Chief Complaint Invasive ductal carc daria right breast Right Breast Cacner Right Breast Cacner Reason for Visit [id number] Chief Complaint Right Breast Cacner Right Breast Cacner Right Breast Cacner hematoma right breast hematoma right breast Invasive ductal carcima right breast Reason for Visit [id number] Chief Complaint Invasive ductal carc daria right breast Reason for Visit Encounter for monito ring aromatase inhibitor therapy [id number] Osteopenia Screening for osteoporosis Chief Complaint Invasive ductal carc daria right breast Reason for Visit Adnexal mass Aromatase inhibitor-associated arthralgia Encounter for monitoring aromatase inhibitor therapy [id number] Osteopenia Screening for osteoporosis Chief Complaint Invasive ductal carc daria right breast Follow UP Reason for Visit Adnexal mass Aromatase inhibitor-associated arthralgia Encounter for monitoring aromatase inhibitor therapy [id number] Osteopenia Screening for osteoporosis Aromatase inhibitor-associated arthralgia History of bilateral salpingo-oophorectomy Encounter for monitoring aromatase inhibitor therapy [id number] Osteopenia Chief Complaint Admit Date Follow Up [...] February 11, 2024 End: February 11, 2024 Records Technician Relationship Specialty Start Date End Date Howard Schumacher MD [address] [place] [address] PCP - General Family Medicine 09/23/23 Ciera Vitale NP [address] [place] [id number] PCP - Wilner ARMIJO 10/26/23 Howard Schumacher MD [address] [place] [address] PCP - Devoted 03/27/24 Records Technician Relationship Specialty Start Date End Date Howard Schumacher MD [address] [place] [phone] PCP - General Family Medicine 09/23/23 Howard Schumacher MD [address] [place] [address] PCP - Devoted 03/27/24 Records Technician Relationship Specialty Start Date End Date Howard Schumacher MD [address] [place] [phone] PCP - General [facility] 09/23/23 Howard Schumacher MD [address] [place] [address] PCP - Devoted 03/27/24 Records Technician Relationship Specialty Start Date End Date Howard Schumacher MD [address] [place] [phone] PCP - General Family Medicine 09/23/23 Howard Schumacher MD [address] [place] [address] PCP - Devoted 03/27/24 Records Technician Relationship Specialty Start Date End Date Howard Schumacher MD [address] [place] [address] PCP - General Family Medicine 09/23/23 Howard Schumacher MD [address] [place] [address] PCP - Devoted 03/27/24 Records Technician Relationship Specialty Start Date End Date Howard Schumacher MD [address] [place] [address] PCP - General Family Medicine 09/23/23 Howard Schumacher MD [address] [place] [address] PCP - Devoted 03/27/24 Goals [...] and content) DATE CREATED AUTHOR 05/22/2022 [facility] DATE CREATED AUTHOR AUTHOR'S ORGANIZ ATION 08/14/2024 [facility] EPIC DATE CREATED AUTHOR AUTHOR'S ORGANIZ ATION 08/22/2024 [facility] Reason for Visit (unrecogniz [...] BE BASED ON THE PRIMARY CLINICAL RECORDS. [facility] [employer] [facility]. provides no warranty or guarantee of the accuracy or completeness of information in this document.
[2024-09-15 10:05] LABS: Alanine Aminotransferase 85 U/L (14-59); Albumin Globulin Ratio 0.9; Albumin Level 3.5 g/dL (3.4-5.0); Alkaline Phosphatase 102 U/L (46-116); Aspartate Amino Transferase 111 U/L (15-37); Bilirubin Direct 0.2 mg/dL (0.0-0.2); Bilirubin Total 0.6 mg/dL (0.2-1.0); Calcium 9.2 mg/dL (8.5-10.1); Carbon Dioxide 26.8 mmol/L (21.0-32.0); Chloride 102 mmol/L (98-107); Chol HDL Ratio 2.6; Cholesterol 230 mg/dL (<=200); Estimated GFR (African America >60 (>=60 mL/min/1.73m^2); Estimated GFR (Non-African Ame >60 (>=60 mL/min/1.73m^2); Globulin 3.7 g/dL; Glucose 87 mg/dL (74-106); HDL Cholesterol 89 mg/dL (40-60); Potassium 3.8 mmol/L (3.5-5.1); Sodium 139 mmol/L (136-145); Total Protein 7.2 g/dL (6.4-8.2); Triglycerides 170 mg/dL (<=150)
== END 2024-09-15 09:36 | disposition home or self-care (01) ==
LOC: LAB 09:35
PROVIDERS: PCP Family Medicine; Visit Provider Family Medicine
DX: E78.5 Hyperlipidemia, unspecified (principal); Z79.899 Other long term (current) drug therapy
CPT/HCPCS: 36415; 80048; 80061; 80076; 85025

== ENCOUNTER 2024-09-26 08:09 | Outpatient (OUT) | payer OTHER, SELFPAY ==
--- NOTE | 2024-09-26 08:12 | US_ITS ---
The [address] [address] Patient Name: ZUNILDA ARIAS MRN: [id number] date: 1960 Sex: F Assigned Patient Location: US Current Patient Location: US Accession/Order Number: [id number] Exam Date: 09/26/2024 16:15 Report Date: 09/26/2024 16:18 At the request of: SANTOSH SCHUMACHER MD Procedure: US right upper quadrant Right upper quadrant ultrasound. Reason for exam: Elevated LFTs. COMPARISON: None. TECHNIQUE: Grayscale and color Doppler images of the right upper quadrant organs were obtained. FINDINGS: Fatty infiltration of the liver without focal mass or intrahepatic ductal dilatation. Hepatopedal flow is seen within the portal vein. Visualized pancreas appears unremarkable. Gallbladder appears unremarkable. CBD measures 4.5 mm. Visualized portions of the right kidney demonstrates a 9 mm angiomyolipoma. No hydronephrosis. US/US right upper quadrant IMPRESSION: Fatty infiltration of the liver. 9 mm angiomyolipoma right kidney. Impression dictated by: Johny Melgar Jr., DSheilaOSheila09/26/2024 4:18 PM Dictation Location: [place] [address] Electronically authenticated by: [id number] Date: 09/26/2024 16:18
--- OUTSIDE RECORDS SUMMARY | 2024-09-26 08:22 | XMS_ITS | CCD ---
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 Name Role Phone MD Lisa Hennessy Attending Provider MD Howard Schumacher Primary Care Provider MD Howard Schumacher Referring Provider [phone] DO David Magana Attending Provider [phone] MD Howard Schumacher Primary Care Provider [phone] MD Lisa Hennessy Attending Provider [phone] MD Howard Schumacher Referring Provider MD Lisa Hennessy Attending Provider MD Lisa Hennessy Referring Provider ENDY, DR HOWARD Otto Primary Care Unavailable Qulin, DR Oreilly Consulting Unavailable NADERER, DR HOWARD Otto Admitting Unavailable NADERER, DR HOWARD Otto Attending Unavailable NADERER, DR HOWARD Otto Consulting Unavailable NADERETre, DR HOWARD Otto Primary Care Unavailable NADERER, DR HOWARD Otto Admitting Unavailable NADERETre, DR HOWARD Otto Attending Unavailable NADERETre, DR HOWARD Otto Consulting Unavailable NADERETre, DR HOWARD Otto Primary Care Unavailable NADERETre, DR HOWARD Otto Admitting Unavailable ZIEBER, DR MAURO [place] Consulting Unavailable ENDY, DR HOWARD Otto Attending Unavailable ENDY, DR HOWARD Otto Consulting Unavailable MD Lisa Hennessy Attending Provider [phone] MD Lisa Hennessy Referring Provider [phone] MD Howard Schumacher Primary Care Provider [phone] MD Lisa Hennessy Attending Provider MD Lisa Hennessy Referring Provider [phone] MD Howard Schumacher Primary Care Provider MD Lisa Hennessy Attending Provider MD Lisa Hennessy Referring Provider MD Howard Schumacher Primary Care Provider MD Lisa Hennessy Attending Provider MD Lisa Hennessy Referring Provider MD Howard Schumacher Primary Care Provider [phone] MD Lisa Hennessy Attending Provider MD Lisa Hennessy Referring Provider MD Howard Schumacher Primary Care Provider MD Lisa Hennessy Attending Provider MD Lisa Hennessy Referring Provider [phone] MD Howard Schumacher Primary Care Provider DO Jacinto Mcnulty Attending Provider MD Lisa Hennessy Attending Provider MD Lisa Hennessy Referring Provider MD Howard Schumacher Primary Care Provider Howard Schumacher MD Primary Care Provider Iam RAILROAD ACCOUNTANT, Ciera L Unavailable Howard Schumacher MD Unavailable DAVID MAGANA Attending Unavailable DAVID MAGANA Attending Unavailable HOWARD SCHUMACHER Referring Unavailable HOWARD SCHUMACHER Attending Unavailable DAVID MAGANA H Attending Unavailable BANDAR ESPINOSA Attending Unavailable HOWARD SCHUMACHER Attending Unavailable BANDAR ESPINOSA Attending Unavailable David Magana Admitting Unavailable David Magana Attending Unavailable Howard Schumacher Primary Care Unavailable Howard Schumacher Primary Care Unavailable Gerhard, Lisa Admitting Unavailable Gerhard Lisa Attending Unavailable Gerhard, Lisa Referring Unavailable Allergies Allergy Classification Reported Allergen(s) Allergy Type Date of Onset Reaction(s) Facility (20 sources) Penicillin; Translations: [penicillin G] Drug Allergy 02-10-2022 Unknown [facility] (1 source) Penicillin Drug Allergy 12-25-2021 [facility] Repository Medications Current Medications Medication Drug Class(es) Dates Sig (Normalized) Sig (Original) acetaminophen 500 mg oral tablet (5 sources) Start: 04-16-2023 Acetaminophen (Tylenol Ex Str Rapid Release) 500 mg Tablet Active 500 MG PO As Directed April 15, 2023 11:00pm anastrozole 1 mg oral tablet (20 sources) Aromatase Inhibitor Start: 04-02-2022 End: 03-17-2024 take 1 tablet by mouth once daily anastrozole (Arimidex) 1 MG chemo tablet Take 1 mg by mouth Daily. 01/30/2023 Active ascorbic acid 1000 mg oral tablet (13 sources) Vitamin C Ascorbic Acid (vitamin C) [...] 12:00am calcium carbonate 500 mg oral tablet (13 sources) calcium carbonat e (Os-Satya) 1250 (500 Ca) MG tablet 1 (one) time each day at the same time. Active cholecalciferol 0.025 mg oral tablet (20 sources) Vitamin D Start: 2022 take 1 tablet by mouth once daily Cholecalciferol (Vitamin D3) (Vitamin D3) 25 mcg (1,000 unit) Tablet Active 25 MCG PO Daily September 11, 2022 12:00am docusate sodium 100 mg oral capsule (13 sources) Start: 2022 take 1 capsule by mouth once daily at bedtime docusate sodium (Colace) 100 MG capsule take 1 capsule by mouth every morning and BEFORE BEDTIME 01/25/2023 Active docusate sodium 50 mg / sennosides, intermediate 8.6 mg oral tablet (8 sources) Start: [...] 2023 11:00pm meloxicam 15 mg oral tablet (17 sources) Nonsteroidal Anti-inflammatory Drug Start: 2022 End: 2024 take 1 tablet by mouth once daily meloxicam (Mobic) 15 MG tablet Indications: Arthralgia, unspecified joint Take 1 tablet (15 mg) by mouth Daily 30 tablet 03/17/2024 03/17/2025 Active mometasone furoate 1 mg/ml topical cream (17 sources) Corticosteroid Start: 2021 End: 2024 mometasone (Elocon) 0.1 % cream apply topically to RADIATION SITE DAILY AFTER RADIATION 04/24/2022 08/01/2024 Discontinued Start: 04-10-2022 End: 12-31-2022 Mometasone 0.1 % Cream Disco ntinued 1 APPLIC TOPICAL Daily 45 April 09, 2022 11:00pm December 31, 2022 12:20pm to radiation site daily AFTER radiation [place] (No Known Home Meds) (3 sources) Start: 03-14-2022 [place] (No Kn own Home Meds) Active March [...] 02-01-2024 01-30-2022 Chronic Disorders of lipid metabolism (9 sources) Dyslipidemia; Translations: [Hyperlipidemia, unspecified] Onset: 08-04-2023 08-01-2024 Chronic Other aftercare (10 sources) Encounter for therapeutic drug level monitoring; Translations: [Encounter for therapeutic drug monitoring] 06-18-2022 Episodic Other bone disease and musculoskeletal deformities (10 sources) Other specified disorders of bone density and structure, unspecified site; Translations: [Disorder of bone and cartilage, unspecified] 06-18-2022 Episodic Other connective tissue disease (4 sources) Pain of toe of left foot; Translations: [Pain in left toe(s)] 07-28-2024 Episodic Other female genital disorders (5 sources) Other specified conditions associated with female genital organs and menstrual cycle; Translations: [Other specified symptoms associated with female genital organs] 03-12-2023 Episodic Other non-traumatic joint disorders (7 sources) [...] Other Problems Problem Classification Problem Date Documented Da te Episodic/Chronic Immunizations and screening for infectious disease (13 sources) Anti-nuclear factor positive; Translations: [Other specified abnormal immunological findings in serum] Onset: 08-04-2023 08-04-2023 Episodic Nonmalignant breast conditions (17 sources) Unspecified lump in the right breast, upper inner quadrant; Translations: [Pain of breast] Onset: 12-25-2021 Episodic Other aftercare (9 sources) Drug therapy finding; Translations: [Encounter for therapeutic drug level monitoring] Onset: 11-09-2023 04-02-2022 Episodic Other aftercare (20 sources) Long-term current use of drug therapy; Translations: [Encounter for therapeutic drug level monitoring] Onset: 08-04-2023 04-02-2022 Episodic Other bone disease and musculoskeletal deformities (20 sources) Osteopenia; Translations: [Other specified disorders of bone density and structure, unspecified site] Onset: 11-09-2023 06-11-2022 Episodic Other connective tissue disease (13 sources) Lump on face; Translations: [Other specified soft tissue disorders] Onset: 06-26-2023 06-26-2023 Episodic Other female genital disorders (19 sources) Mass of uterine adnexa; Translations: [Other specified conditions associated with female genital organs and menstrual cycle] Onset: 11-09-2023 02-19-2023 Episodic Other non-traumatic joint disorders (20 sources) Joint pain; Translations: [Pain in unspecified joint] Onset: 08-04-2023 02-19-2023 Episodic Other non-traumatic joint disorders (13 sources) Chronic pain of right upper limb; Translations: [Pain in right shoulder] Onset: 02-01-2024 02-01-2024 Episodic Other nutritional; endocrine; and metabolic disorders (13 sources) Body mass index 30+ - obesity; Translations: [Obesity, unspecified] Onset: 08-04-2023 Resolved: 08-01-2024 08-04-2023 Chronic Residual codes; unclassified (1 source) Family history of malignant neoplasm of digestive organs; Translations: [FAM HX MALIG NEOPLASM DIGESTIV ORGN] Onset: 01-01-2022 Episodic Results Test Name Value Interpretation Reference Range Facility ALL CBC WITH AUTO DIFFon BASOPHILS ABSOLUTE AUTO 0.1 [facility] Basophils/100 WBC (Bld) 2.2 % High 0.2 - 2.0 % [facility] Eosinophils/100 WBC (Bld) 9.4 % High 0.9 - 7.0 % [facility] Erythrocyte distribution width (RBC) [Ratio] 12.7 % 11.0 - 15.0 % [facility] Hematocrit (Bld) [Volume fraction] 42.4 % 36.0 - 48.0 % [facility] Hemoglobin (Bld) [Mass/Vol] 14.3 g/dL 12.0 - 16.0 g/dL [facility] IMMATURE GRANULOCYTES ABS AUTO 0.01 [facility] Immature granulocytes/100 WBC (Bld) 0.2 % 0.0 - 0.5 % [facility] Interpretation and review of laboratory results Abnormal [facility] LYMPHOCYTES ABSOLUTE AUTO 1.8 [facility] Lymphocytes/100 WBC (Bld) 43.8 % 20.5 - 60.0 % [facility] MCH (RBC) [Entitic mass] 32.9 pg 26.7 - 34.0 pg [facility] MCHC (RBC) [Mass/Vol] 33.7 g/dL 29.9 - 35.2 g/dL [facility] MCV (RBC) [Entitic vol] 97.5 fL 81.0 - 99.0 fL [facility] MONOCYTES ABSOLUTE AUTO 0.5 [facility] Monocytes/100 WBC (Bld) 12 % 1.7 - 12.0 % [facility] NEUTROPHILS ABSOLUTE AUTO 1.4 [facility] Neutrophils/100 WBC (Bld) 32.4 % Low 43.0 - 75.0 % [facility] Platelet mean volume (Bld) [Entitic vol] 9 fL Low 9.5 - 13.5 fL [facility] TBH EO # 0.4 [facility] [address]T [address] [facility] RBC 4.35 [facility] WBC 4.2 [facility] MM diagnostic mammo BI w/CAD on 12-31-2023 MM diagnostic mammo BI w/CAD [facility] [place] [address] Ultrasound Report Signed Patient: Denia Al MR#: [id number] : 1960 Acct:[id number] Age/Sex: 63 / F ADM Date: 12/31/23 Loc: XT [facility]: [facility] Attending Dr: Lisa Hennessy MD Ordering Provider: Lisa Hennessy MD; Ciera Vitale APRN Date of Service: 12/31/23 MM/MM diagnostic mammo BI w/CAD: right breast cancer ([id number]) US/US extremity nonvascular: RT AXILLA SWELLING Copies to: MD Ciera Kay APRN BILATERAL Diagnostic Full Field digital mammogram with [...] Ricardo Dumas M.D.12/31/2023 12:15 PM Dictation Location: [facility] Tech: Germania Brooks Transcribed By: JAYSHREE 12/31/23 1215 Dictated By: Ricardo Dumas DO 12/31/23 1212 Signed By: 12/31/23 1215 Normal [facility] US breast RT limited 09-28 US breast RT limited [facility] [place] [address] [place] [address] Ultrasound Report Signed Patient: Denia Al MR#: [id number] : 1960 Acct:[id number] Age/Sex: 63 / F ADM Date: 09/29/23 Loc: [facility] Room: Type: [facility] Attending Dr: David Magana DO Ordering Provider: David Magana DO Date of Service: 09/29/23 US/US breast RT limited: UOQ painful lump Copies to: David Magana DO Targeted right breast ultrasound HISTORY: [...] Ricardo Dumas M.D.09/29/2023 10:58 AM Dictation Location: [facility] Tech: Terrie Brennan Transcribed By: JAYSHREE 09/29/23 1058 Dictated By: Ricardo Dumas DO 09/29/23 1056 Signed By: 09/29/23 1058 Normal [facility] Alanine aminotransferase [En zymatic activity/volume] in Serum or PlasmaOrdered By: Ciera Vitale on 03-12-2023 ALT [Catalytic activity/Vol] 27 U/L 7-52 [facility] Albumin [Mass/volume] in Ser um or Plasma by Bromocresol green (BCG) dye binding methoOrdered By: Ciera Vitale on 03-12-2023 Albumin BCG dye [Mass/Vol] 4.1 g/dL 3.5-5.7 [facility] Alkaline phosphatase [Enzyma tic activity/volume] in Serum or PlasmaOrdered By: Ciera Vitale on 03-12-2023 ALP [Catalytic activity/Vol] 76 U/L 34-104 [facility] Aspartate aminotransferase [ Enzymatic activity/volume] in Serum or PlasmaOrdered By: Ciera Vitale on 03-12-2023 AST [Catalytic activity/Vol] 32 U/L 13-39 [facility] Basophils Auto (Bld) [#/Vol] Ordered By: Ciera Vitale on 03-12-2023 Basophils (Bld) [#/Vol] 0.1 10*3/uL 0.0-0.2 [facility] Basophils/100 WBC Auto (Bld) Ordered By: Ciera Vitale on 03-12-2023 Basophils/100 WBC (Bld) 1.2 % . [facility] Bilirubin.total [Mass/volume ] in Serum or PlasmaOrdered By: Ciera Vitale on 03-12-2023 Bilirubin [Mass/Vol] 0.6 mg/dL 0.3-1.0 [facility] C reactive protein [Mass/vol ume] in Serum or PlasmaOrdered By: Ciera Vitale on 03-12-2023 CRP [Mass/Vol] 0.5 mg/dL 0.0-0.5 [facility] Calcium [Mass/volume] in Ser um or PlasmaOrdered By: Ciera Vitale on 03-12-2023 Calcium [Mass/Vol] 9.6 mg/dL 8.6-10.3 [facility] Carbon dioxide, total [Moles /volume] in Serum or PlasmaOrdered By: Ciera Vitale on 03-12-2023 CO2 [Moles/Vol] 28.4 mmol/L 21.0-31.0 [facility] Chloride [Moles/volume] in S wilber or PlasmaOrdered By: Ciera Vitale on 03-12-2023 Chloride [Moles/Vol] 107 mmol/L 98-107 [facility] Creatinine [Mass/volume] in Serum or PlasmaOrdered By: Ciera Vitale on 03-12-2023 Creatinine [Mass/Vol] 0.65 mg/dL 0.60-1.20 [facility] Eosinophils Auto (Bld) [#/Vo l]Ordered By: Ciera Vitale on 03-12-2023 Eosinophils (Bld) [#/Vol] 0.3 10*3/uL 0.0-0.45 [facility] Eosinophils/100 WBC Auto (Bl d)Ordered By: Ciera Vitale on 03-12-2023 Eosinophils/100 WBC (Bld) 5.1 % . [facility] Erythrocyte distribution wid th Auto (RBC) [Ratio]Ordered By: Ciera Vitale on 03-12-2023 Erythrocyte distribution width (RBC) [Ratio] 13.9 % 11.9-15.3 [facility] Erythrocyte sedimentation ra te by Photometric methodOrdered By: Ciera Vitale on 03-12-2023 ESR Photometric method (Bld) [Velocity] 25 mm/hr 0-29 [facility] Globulin Calc (S) [Mass/Vol] Ordered By: Ciera Vitale on 03-12-2023 Globulin (S) [Mass/Vol] 2.8 g/dL [facility] Glucose [Mass/volume] in Ser um or PlasmaOrdered By: Ciera Vitale on 03-12-2023 Glucose [Mass/Vol] 95 mg/dL 70-100 [facility] Comment on above: ADA recommended refe rence rangeRandom Glucose Reference Range is dependent on time and content of last meal. Glucose of more than 200 mg/dL in a nonstressed, ambulatory subject supports the diagnosis of Diabetes Mellitus. Hematocrit Auto (Bld) [Volum e fraction]Ordered By: Ciera Vitale on 03-12-2023 Hematocrit (Bld) [Volume fraction] 38.8 % 34.0-46.4 [facility] Hemoglobin [Mass/volume] in BloodOrdered By: Ciera Vitale on 03-12-2023 Hemoglobin (Bld) [Mass/Vol] 12.6 g/dL 11.8-15.4 [facility] Leukocytes [#/volume] correc pedro for nucleated erythrocytes in Blood by Automated counOrdered By: Ciera Vitale on 03-12-2023 WBC corrected for nucl RBC Auto (Bld) [#/Vol] 6.5 10*3/uL 3.8-11.6 [facility] Lymphocytes Auto (Bld) [#/Vo l]Ordered By: Ciera Vitale on 03-12-2023 Lymphocytes (Bld) [#/Vol] 1.5 10*3/uL 1.00-4.8 [facility] Lymphocytes/100 WBC Auto (Bl d)Ordered By: Ciera Vitale on 03-12-2023 Lymphocytes/100 WBC (Bld) 23.0 % . [facility] MCH Auto (RBC) [Entitic mass ]Ordered By: Ciera Vitale on 03-12-2023 MCH (RBC) [Entitic mass] 31.7 pg 24.7-34.3 [facility] MCHC Auto (RBC) [Mass/Vol]Or dered By: Ciera Vitale on 03-12-2023 MCHC (RBC) [Mass/Vol] 32.6 g/dL 32.0-35.0 [facility] MCV Auto (RBC) [Entitic vol] Ordered By: Ciera Vitale on 03-12-2023 MCV (RBC) [Entitic vol] 97.3 fL 80-100 [facility] Monocytes Auto (Bld) [#/Vol] Ordered By: Ciera Vitale on 03-12-2023 Monocytes (Bld) [#/Vol] 0.9 10*3/uL High 0.0-0.8 [facility] Monocytes/100 WBC Auto (Bld) Ordered By: Ciera Vitale on 03-12-2023 Monocytes/100 WBC (Bld) 13.4 % . [facility] Neutrophils Auto (Bld) [#/Vo l]Ordered By: Ciera Vitale on 03-12-2023 Neutrophils (Bld) [#/Vol] 3.7 10*3/uL 1.8-7.7 [facility] Neutrophils/100 WBC Auto (Bl d)Ordered By: Ciera Vitale on 03-12-2023 Neutrophils/100 WBC (Bld) 57.3 % . [facility] No Panel InformationOrdered By: Ciera Vitale on 03-12-2023 Anti-Nuclear Antibody Comment 2 See comment . [facility] Comment on above: For more information about Hep-2 cell patterns useANApatterns.org, the official website for the InternationalConsensus on Antinuclear Antibody ([place]) Patterns (ICAP). ----A positive [place] result may occur in healthy individuals (lowtiter) or be associated with a variety of diseases. Seeinterpretation chart which is not all inclusive:Pattern Antigen Detected Suggested Disease Association Homogeneous DNA(ds,ss), SLE - High titers Nucleosomes, Histones Drug-induced SLE Speckled Sm, CUTTING AND SPLICING SUPERVISOR, SCL-70, SLE,MCTD,PSS (diffuse form), SS-A/SS-B Sjogrens Nucleolar SCL-70, PM-1/SCL High titers Scleroderma, PM/DM Centromere Centromere PSS (limited form) w/Crest syndrome variable Nuclear Dot Sp100,[id number] Primary Biliary Cirrhosis Nuclear GP210, Primary Biliary CirrhosisMembrane rory A,B,C Performed at: [facility] [place] [facility] [id number] [place], [place] [id number] Director: Abdifatah Villegas PhD, Phone: [phone] Estimated GFR (CKD-EPI) > 60.0 mL/Min [facility] Creatinine Clearance (Chem 88.96 [facility] Nucleated erythrocytes [Pres ence] in Blood by Automated countOrdered By: Ciera Vitale on 03-12-2023 Nucleated RBC Auto Ql (Bld) 0.1 /100{WBC} 0-0.5 [facility] Platelet mean volume Auto (B ld) [Entitic vol]Ordered By: Ciera Vitale on 03-12-2023 Platelet mean volume (Bld) [Entitic vol] 8.5 fL 6.3-10.7 [facility] Platelets Auto (Bld) [#/Vol] Ordered By: Ciera Vitale on 03-12-2023 Platelets (Bld) [#/Vol] 417 10*3/uL 150-450 [facility] Potassium [Moles/volume] in Serum or PlasmaOrdered By: Ciera Vitale on 03-12-2023 Potassium [Moles/Vol] 4.7 mmol/L 3.5-5.1 [facility] Protein [Mass/volume] in Ser um or PlasmaOrdered By: Ciera Vitale on 03-12-2023 Protein [Mass/Vol] 6.9 g/dL 6.4-8.9 [facility] RBC Auto (Bld) [#/Vol]Ordere d By: Ciera Vitale on 03-12-2023 RBC (Bld) [#/Vol] 3.99 10*6/uL 3.60-5.00 [facility] Serum homogeneous pattern an tinuclear antibody ([place]) titerOrdered By: Ciera Vitale on 03-12-2023 Homogenous nuclear Ab pattern (S) [Titer] 1:160 High . [facility] Comment on above: ICAP nomenclature: A C-1 Serum nuclear antibody titer Ordered By: Ciera Vitale on 03-12-2023 Nuclear Ab (S) [Titer] Positive Abnormal . [facility] Comment on above: Negative <1:80 Borde rline 1:80 Positive >1:80 Serum nucleolar pattern anti nuclear antibody ([place]) titerOrdered By: Ciera Vitale on 03-12-2023 Nucleolar nuclear Ab pattern (S) [Titer] 1:320 High . [facility] Comment on above: ICAP nomenclature: A C-8,9,10 Serum or plasma albumin/glob ulin mass ratioOrdered By: Ciera Vitale on 03-12-2023 Albumin/Globulin [Mass ratio] 1.5 {ratio} [facility] Serum or plasma anion gap de terminationOrdered By: Ciera Vitale on 03-12-2023 Anion gap [Moles/Vol] 9.3 mmol/L 6.0-15.0 [facility] Serum or plasma cyclic adeno sine monophosphate measurement (moles/volume)Ordered By: Ciera Vitale on 03-12-2023 Adenosine monophosphate.cyclic [Moles/Vol] 6 units 0-19 [facility] Comment on above: Negative <20 Weak po sitive 20 - 39 Moderate positive 40 - 59 Strong positive >59Performed at: [facility] [place] [id number] Director: Abdifatah Villegas PhD, Phone: [phone] Serum or plasma rheumatoid f actor measurement (units/volume)Ordered By: Ciera Vitale on 03-12-2023 Rheumatoid factor Qn 10.3 [IU]/mL <14.0 [facility] Sodium [Moles/volume] in Ser um or PlasmaOrdered By: Ciera Vitale on 03-12-2023 Sodium [Moles/Vol] 140 mmol/L 136-145 [facility] Urea nitrogen [Mass/volume] in Serum or PlasmaOrdered By: Ciera Vitale on 03-12-2023 Urea nitrogen [Mass/Vol] 6 mg/dL Low 7-25 [facility] WBC Auto (Bld) [#/Vol]Ordere d By: Ciera Vitale on 03-12-2023 WBC (Bld) [#/Vol] 6.5 10*3/uL 3.8-11.6 [facility] COVID-19 Positive/NegativeOr dered By: David Magana on 03-05-2022 SARS-CoV-2 (COVID-19) N gene AMY+probe Ql (Resp) Negative Negative [facility] Comment on above: Testing for SARS-CoV -2 by RT-PCR This test was developed and its performance characteristics determined by [employer] and validated at the [facility]. This test has not been FDA [...] or revoked sooner. COVID-19 Positive/NegativeOr dered By: David Magana on 02-14-2022 SARS-CoV-2 (COVID-19) N gene AMY+probe Ql (Resp) Negative Negative [facility] Comment on above: Testing for SARS-CoV -2 by RT-PCR This test was developed and its performance characteristics determined by [employer] ([employer]) and validated at the [facility]. This test has not been FDA [...] sooner. Basophils Auto (Bld) [#/Vol] Ordered By: David Magana on 02-10-2022 Basophils (Bld) [#/Vol] 0.1 10*3/uL 0.0-0.2 [facility] Basophils/100 WBC Auto (Bld) Ordered By: David Magana on 02-10-2022 Basophils/100 WBC (Bld) 1.3 % . [facility] Blood hemoglobin measurement (mass/volume)Ordered By: David Magana on 02-10-2022 Hemoglobin (Bld) [Mass/Vol] 14.5 g/dL 11.8-15.4 [facility] Blood leukocytes automated c ount (number/volume)Ordered By: David Magana on 02-10-2022 WBC (Bld) [#/Vol] 8.1 10*3/uL 4.5-11.0 [facility] Creatinine and Glomerular fi ltration rate.predicted panel (S/P/Bld)Ordered By: David Magana on 02-10-2022 Creatinine [Mass/Vol] 0.64 mg/dL 0.44-1.03 [facility] Eosinophils Auto (Bld) [#/Vo l]Ordered By: David Magana on 02-10-2022 Eosinophils (Bld) [#/Vol] 0.8 10*3/uL 0.0-0.45 [facility] Eosinophils/100 WBC Auto (Bl d)Ordered By: David Magana on 02-10-2022 Eosinophils/100 WBC (Bld) 10.2 % . [facility] Erythrocyte distribution wid th Auto (RBC) [Ratio]Ordered By: David Magana on 02-10-2022 Erythrocyte distribution width (RBC) [Ratio] 13.4 % 11.9-15.3 [facility] Estimated glomerular filtrat ion rate (GFR) non- AmericanOrdered By: David Magana on 02-10-2022 GFR/1.73 sq M.predicted among non-blacks MDRD (S/P/Bld) [Vol rate/Area] > 60 mL/Min [facility] Hematocrit Auto (Bld) [Volum e fraction]Ordered By: David Magana on 02-10-2022 Hematocrit (Bld) [Volume fraction] 43.4 % 34.0-46.4 [facility] - Hematology and Cell countsOrdered By: David Magana on 02-10-2022 Nucleated RBC/100 WBC (Bld) [Ratio] 0.2 % 0-0.5 [facility] Lymphocytes Auto (Bld) [#/Vo l]Ordered By: David Magana on 02-10-2022 Lymphocytes (Bld) [#/Vol] 1.7 10*3/uL 1.00-4.8 [facility] Lymphocytes/100 WBC Auto (Bl d)Ordered By: David Magana on 02-10-2022 Lymphocytes/100 WBC (Bld) 21.4 % . [facility] MCH Auto (RBC) [Entitic mass ]Ordered By: David Magana on 02-10-2022 MCH (RBC) [Entitic mass] 33.8 pg 24.7-34.3 [facility] MCHC Auto (RBC) [Mass/Vol]Or dered By: David Magana on 02-10-2022 MCHC (RBC) [Mass/Vol] 33.4 g/dL 32.0-35.0 [facility] MCV Auto (RBC) [Entitic vol] Ordered By: David Magana on 02-10-2022 MCV (RBC) [Entitic vol] 101.3 fL 80-100 [facility] Monocytes Auto (Bld) [#/Vol] Ordered By: David Magana on 02-10-2022 Monocytes (Bld) [#/Vol] 1.0 10*3/uL 0.0-0.8 [facility] Monocytes/100 WBC Auto (Bld) Ordered By: David Magana on 02-10-2022 Monocytes/100 WBC (Bld) 12.2 % . [facility] Neutrophils Auto (Bld) [#/Vo l]Ordered By: David Magana on 02-10-2022 Neutrophils (Bld) [#/Vol] 4.4 10*3/uL 1.8-7.7 [facility] Neutrophils/100 WBC Auto (Bl d)Ordered By: David Magana on 02-10-2022 Neutrophils/100 WBC (Bld) 54.9 % . [facility] No Panel InformationOrdered By: David Magana on 02-10-2022 Estimated GFR () > 60 mL/Min [facility] Comment on above: GFR estimated refere nce range: According to KDOQI guidelines, <60 ml/min/1.73m2 is sufficient to diagnose a patient with chronic kidney disease. Pharmacy Creatinine Clearance (Chem N/A [facility] Platelet mean volume Auto (B ld) [Entitic vol]Ordered By: David Magana on 02-10-2022 Platelet mean volume (Bld) [Entitic vol] 8.1 fL 6.3-10.7 [facility] Platelets Auto (Bld) [#/Vol] Ordered By: David Magana on 02-10-2022 Platelets (Bld) [#/Vol] 388 10*3/uL 150-450 [facility] RBC Auto (Bld) [#/Vol]Ordere d By: David Magana on 02-10-2022 RBC (Bld) [#/Vol] 4.29 10*6/uL 3.60-5.00 [facility] Serum or plasma calcium cyndee urement (mass/volume)Ordered By: David Magana on 02-10-2022 Calcium [Mass/Vol] 9.6 mg/dL 8.2-10.2 [facility] Serum or plasma chloride raf surement (moles/volume)Ordered By: David Magana on 02-10-2022 Chloride [Moles/Vol] 106 mmol/L 95-114 [facility] Serum or plasma glucose cyndee urement (mass/volume)Ordered By: David Magana on 02-10-2022 Glucose [Mass/Vol] 103 mg/dL 70-100 [facility] Comment on above: ADA recommended refe rence range Random Glucose Reference Range is dependent on time and content of last meal. Glucose of more than 200 mg/dL in a nonstressed, ambulatory subject supports the diagnosis of Diabetes Mellitus. Serum or plasma potassium me asurement (moles/volume)Ordered By: David Magana on 02-10-2022 Potassium [Moles/Vol] 4.2 mmol/L 3.5-5.1 [facility] Serum or plasma sodium measu rement (moles/volume)Ordered By: David Magana on 02-10-2022 Sodium [Moles/Vol] 140 mmol/L 136-146 [facility] Serum or plasma total carbon dioxide measurement (moles/volume)Ordered By: David Magana on 02-10-2022 CO2 [Moles/Vol] 25.4 mmol/L 22.0-30.0 [facility] Serum or plasma urea nitroge n measurement (mass/volume)Ordered By: David Magana on 02-10-2022 Urea nitrogen [Mass/Vol] 4 mg/dL 9-23 [facility] US VAC ASST BX BREAST RT W C LIPon 01-09-2022 US VAC ASST BX BREAST RT W CLIP Begin Addendum #1 COLLECTED DATE/TIME: 01/01/2022 08:41 EDT Final Diagnosis Report for [facility] [place] [place], [place] RIGHT BREAST MASS, 1 O'CLOCK, ULTRASOUND [...] mass 2. Pathology results are pending. Normal [facility] MAMMO POST BIOPSY RIGHTon MAMMO POST BIOPSY RIGHT Patient: DENIA AL Exam Date: 01/01/2022 : 1960 Gender:F Ordering : DR HOWARD SCHUMACHER . Admission #: [id number] Family : Order #: [id number] CLICK HERE TO VIEW EXAM RADIOLOGY REPORT [...] Veliz MD on 01/01/2022 at 09:08 Normal [facility] MG MAMM DIAGNOSTIC 3D ALFREDO CA Don 12-25-2021 MG MAMM DIAGNOSTIC 3D ALFREDO CAD Patient: DENIA AL Exam Date: 12/25/2021 : 1960 Gender:F Ordering : DR HOWARD SCHUMACHER . Admission #: [id number] Family : Order #: [id number] CLICK HERE TO VIEW EXAM RADIOLOGY REPORT [...] stomach cancer at age 82. LOCATION: [facility] BREAST COMPOSITION: Almost entirely fatty. FINDINGS: [...] radiology department nurse will contact patient to printing assistant scheduling a biopsy. LEFT BREAST: A few, scattered benign-appearing tiny calcifications. No suspicious findings. RECOMMENDATIONS: ULTRASOUND-GUIDED CORE BIOPSY: RIGHT BREAST PLEASE NOTE: A NORMAL MAMMOGRAM DOES NOT EXCLUDE THE POSSIBILITY OF BREAST CANCER. A CLINICALLY SUSPICIOUS PALPABLE LUMP SHOULD BE BIOPSIED. Dictated by: Mauro Lester M.D. on 12/25/2021 at 08:39 Approved by: Mauro Lester M.D. on 12/25/2021 at 08:49 Normal [facility] US BREAST RIGHT LIMITEDon US BREAST RIGHT LIMITED Patient: DENIA AL Exam Date: 12/25/2021 : 1960 Gender:F Ordering : DR HOWARD SCHUMACHER . Admission #: [id number] Family : Order #: [id number] CLICK HERE TO VIEW EXAM RADIOLOGY REPORT [...] stomach cancer at age 82. LOCATION: [facility] BREAST COMPOSITION: Almost entirely fatty. FINDINGS: [...] radiology department nurse will contact patient to printing assistant scheduling a biopsy. LEFT BREAST: A few, scattered benign-appearing tiny calcifications. No suspicious findings. RECOMMENDATIONS: ULTRASOUND-GUIDED CORE BIOPSY: RIGHT BREAST PLEASE NOTE: A NORMAL MAMMOGRAM DOES NOT EXCLUDE THE POSSIBILITY OF BREAST CANCER. A CLINICALLY SUSPICIOUS PALPABLE LUMP SHOULD BE BIOPSIED. Dictated by: Mauro Lester M.D. on 12/25/2021 at 08:39 Approved by: Mauro Lester M.D. on 12/25/2021 at 08:49 Normal [facility] CBC AUTO DIFFon 12-09-2021 BASO # 0.1 103/ul Normal 0.0-0.1 [facility] Comment on above: Performed By: #### C BC #### [facility] [address] [address] [address] Yaya Cee Basophils/100 WBC (Bld) 1.7 % Normal 0.2-2.0 [facility] Comment on above: Performed By: #### C BC #### [facility] [address] [address] [address] Yaya Cee EO # 0.7 103/ul Normal 0.0-0.7 [facility] Comment on above: Performed By: #### C BC #### [facility] [address] [address] [address] Yaya Cee Eosinophils/100 WBC (Bld) 9.7 % Critically high 0.9-7.0 [facility] Comment on above: Performed By: #### C BC #### [facility] [address] [place] [address] Dr. Yaya Cee Erythrocyte distribution width (RBC) [Ratio] 13.7 % Normal 11.0-15.0 [facility] Comment on above: Performed By: #### C BC #### [facility] [address] [place] [address] Dr. Yaya Cee Hematocrit (Bld) [Volume fraction] 43.0 % Normal 36.0-48.0 [facility] Comment on above: Performed By: #### C BC #### [facility] [address] [place] [address] Dr. Yaya Cee Hemoglobin (Bld) [Mass/Vol] 13.9 g/dL Normal 12.0-16.0 [facility] Comment on above: Performed By: #### C BC #### [facility] [address] [place] [address] Dr. Yaya Cee IG # 0.05 10e3/ul Critically high 0.00-0.03 [facility] Comment on above: Performed By: #### C BC #### [facility] [address] [place] [address] Dr. Yaya Cee IG % 0.7 % Critically high 0.0-0.5 [facility] Comment on above: Performed By: #### C BC #### [facility] [address] [place] [address] Dr. Yaya Cee LYMPH # 1.8 103/ul Normal 1.2-3.8 [facility] Comment on above: Performed By: #### C BC #### [facility] [address] [place] [address] Dr. Yaya Cee Lymphocytes/100 WBC (Bld) 25.4 % Normal 20.5-60.0 [facility] Comment on above: Performed By: #### C BC #### [facility] [address] [place] [address] Dr. Yaya Cee MANUAL DIFF REQ NO Normal [facility] Comment on above: Performed By: #### C BC #### [facility] [address] [address] [address] Yaya Cee MCH (RBC) [Entitic mass] 33.3 pg Normal 26.7-34.0 [facility] Comment on above: Performed By: #### C BC #### [facility] [address] [place] [address] Dr. Yaya Cee MCHC (RBC) [Mass/Vol] 32.3 g/dL Normal 29.9-35.2 [facility] Comment on above: Performed By: #### C BC #### [facility] [address] [place] [address] Dr. Yaya Cee MCV (RBC) [Entitic vol] 102.9 fL Critically high 81.0-99.0 [facility] Comment on above: Performed By: #### C BC #### [facility] [address] [place] [address] Dr. Yaya Cee MONO # 0.9 103/ul Critically high 0.3-0.8 [facility] Comment on above: Performed By: #### C BC #### [facility] [address] [place] [address] Dr. Yaya Cee Monocytes/100 WBC (Bld) 12.6 % Critically high 1.7-12.0 [facility] Comment on above: Performed By: #### C BC #### [facility] [address] [place] [address] Dr. Yaya Cee NEUT # 3.6 103/ul Normal 1.4-6.5 [facility] Comment on above: Performed By: #### C BC #### [facility] [address] [place] [address] Dr. Yaya Cee Neutrophils/100 WBC (Bld) 49.9 % Normal 43.0-75.0 [facility] Comment on above: Performed By: #### C BC #### [facility] [address] [place] [address] Dr. Yaya Cee Platelet mean volume (Bld) [Entitic vol] 10.0 fL Normal 9.5-13.5 [facility] Comment on above: Performed By: #### C BC #### [facility] [address] [address] [address] Yaya Cee PLT 421 103/ul Normal 150-450 [facility] Comment on above: Performed By: #### C BC #### [facility] [address] [address] [address] Yaya Cee RBC 4.18 106/ul Critically low 4.20-5.40 [facility] Comment on above: Performed By: #### C BC #### [facility] [address] [address] [address] Yaya Cee WBC 7.1 103/ul Normal 4.0-11.0 [facility] Comment on above: Performed By: #### C BC #### [facility] [address] [place] [address] Dr. Yaya Cee GLYCOHEMOGLOBIN A1Con 2021 ADA RECOMMENDATION SEE BELOW Normal [facility] Comment on above: Result Comment: ADA RECOMMENDED LIMIT 4.0 - 6.0 ADA THERAPEUTIC TARGET < 7.0 ACTION SUGGESTED > 7.0 Performed By: #### A 1C #### [facility] [address] [place] [address] Dr. Yaya Cee Glucose [Mass/Vol] 108 mg/dL Normal [facility] Comment on above: Performed By: #### A 1C #### [facility] [address] [place] [address] Dr. Yaya Cee HbA1c (Bld) [Mass fraction] 5.4 % Normal 4.5-6.2 [facility] Comment on above: Performed By: #### A 1C #### [facility] [address] [place] [address] Dr. Yaya Cee LIPID PROFILEon 12-09-2021 CHOL-HDL RATIO NORM SEE BELOW Normal [facility] Comment on above: Result Comment: 3.3 - 4.4 LOW RISK 4.4 - 7.1 AVERAGE RISK 7.1 - 11.0 MODERATE RISK >11.0 HIGH RISK Performed By: #### T SH, LIPID, LIVER, BMP #### [facility] [address] [place] [address] Dr. Yaya Cee Cholesterol [Mass/Vol] 219 mg/dL Critically high <=200 [facility] Comment on above: Performed By: #### T SH, LIPID, LIVER, BMP #### [facility] [address] [address] [address] Yaya Cee Cholesterol in HDL [Mass/Vol] 68 mg/dL Critically high 40-60 [facility] Comment on above: Performed By: #### T SH, LIPID, LIVER, BMP #### [facility] [address] [address] [address] Yaya Cee Cholesterol in LDL [Mass/Vol] 130.8 mg/dL Normal [facility] Comment on above: Performed By: #### T SH, LIPID, LIVER, BMP #### [facility] [address] [place] [address] Dr. Yaya Cee Cholesterol.total/Chol esterol in HDL [Mass ratio] 3.2 {ratio} Normal [facility] Comment on above: Performed By: #### T SH, LIPID, LIVER, BMP #### [facility] [address] [place] [address] Dr. Yaya Cee HDL NORMAL > or = 60 mg/dl - LO W CARDIOVASCULAR RISK <40 mg/dl - HIGH CARDIOVASCULAR RISK Normal [facility] Comment on above: Performed By: #### T SH, LIPID, LIVER, BMP #### [facility] [address] [place] [address] Dr. Yaya Cee LDL CALC NORMAL SEE BELOW Normal [facility] Comment on above: Result Comment: <100 mg/dl OPTIMAL 100 - 129 mg/dl NEAR OR ABOVE OPTIMAL 130 - 159 mg/dl BORDERLINE HIGH 160 - 189 mg/dl HIGH >190 mg/dl VERY HIGH Performed By: #### T SH, LIPID, LIVER, BMP #### [facility] [address] [place] [address] Dr. Yaya Cee Triglyceride [Mass/Vol] 101 mg/dL Normal <=150 [facility] Comment on above: Performed By: #### T SH, LIPID, LIVER, BMP #### [facility] [address] [place] [address] Dr. Yaya Cee VLDL CALC 20.2 mg/dL Normal [facility] Comment on above: Performed By: #### T SH, LIPID, LIVER, BMP #### [facility] [address] [address] [address] Yaya Cee LIVER PROFILEon 12-09-2021 Albumin [Mass/Vol] 3.6 g/dL Normal 3.4-5.0 [facility] Comment on above: Performed By: #### T SH, LIPID, LIVER, BMP #### [facility] [address] [address] [address] Yaya Cee Albumin/Globulin [Mass ratio] 1.0 {ratio} Normal [facility] Comment on above: Performed By: #### T SH, LIPID, LIVER, BMP #### [facility] [address] [place] [address] Dr. Yaya Cee ALP [Catalytic activity/Vol] 79 U/L Normal 46-116 [facility] Comment on above: Performed By: #### T SH, LIPID, LIVER, BMP #### [facility] [address] [place] [address] Dr. Yaya Cee ALT [Catalytic activity/Vol] 35 U/L Normal 14-59 [facility] Comment on above: Performed By: #### T SH, LIPID, LIVER, BMP #### [facility] [address] [place] [address] Dr. Yaya Cee AST [Catalytic activity/Vol] 60 U/L Critically high 15-37 [facility] Comment on above: Performed By: #### T SH, LIPID, LIVER, BMP #### [facility] [address] [place] [address] Dr. Yaya Cee BILI, CONJUGATED 0.1 mg/dL Normal 0.0-0.2 [facility] Comment on above: Performed By: #### T SH, LIPID, LIVER, BMP #### [facility] [address] [place] [address] Dr. Yaya Cee Bilirubin [Mass/Vol] 0.3 mg/dL Normal 0.2-1.0 [facility] Comment on above: Performed By: #### T SH, LIPID, LIVER, BMP #### [facility] [address] [address] [address] Yaya Cee Globulin (S) [Mass/Vol] 3.6 g/dL Normal [facility] Comment on above: Performed By: #### T SH, LIPID, LIVER, BMP #### [facility] [address] [address] [address] Yaya Cee Protein [Mass/Vol] 7.2 g/dL Normal 6.4-8.2 [facility] Comment on above: Performed By: #### T SH, LIPID, LIVER, BMP #### [facility] [address] [place] [address] Dr. Yaya Cee PROF CHEM 8 (BAS METB)on Anion gap [Moles/Vol] 11.4 mmol/L Normal [facility] Comment on above: Performed By: #### T SH, LIPID, LIVER, BMP #### [facility] [address] [place] [address] Dr. Yaya Cee Calcium [Mass/Vol] 8.8 mg/dL Normal 8.5-10.1 [facility] Comment on above: Performed By: #### T SH, LIPID, LIVER, BMP #### [facility] [address] [place] [address] Dr. Yaya Cee Chloride [Moles/Vol] 108 mmol/L Critically high 98-107 [facility] Comment on above: Performed By: #### T SH, LIPID, LIVER, BMP #### [facility] [address] [address] [address] Yaya Cee CO2 [Moles/Vol] 25.4 mmol/L Normal 21.0-32.0 [facility] Comment on above: Performed By: #### T SH, LIPID, LIVER, BMP #### [facility] [address] [place] [address] Dr. Yaya Cee Creatinine [Mass/Vol] 0.63 mg/dL Normal 0.55-1.02 [facility] Comment on above: Performed By: #### T SH, LIPID, LIVER, BMP #### [facility] [address] [address] [address] Yaya Cee EGFR-AF EQUATORIAL GUINEAN >60 Normal >=60 [facility] Comment on above: Performed By: #### T SH, LIPID, LIVER, BMP #### [facility] [address] [address] [address] Yaya Cee EGFR-NON AF EQUATORIAL GUINEAN >60 Normal >=60 [facility] Comment on above: Performed By: #### T SH, LIPID, LIVER, BMP #### [facility] [address] [address] [address] Yaya Cee Glucose [Mass/Vol] 105 mg/dL Normal 74-106 [facility] Comment on above: Performed By: #### T SH, LIPID, LIVER, BMP #### [facility] [address] [place] [address] Dr. Yaya Cee Potassium [Moles/Vol] 4.8 mmol/L Normal 3.5-5.1 [facility] Comment on above: Performed By: #### T SH, LIPID, LIVER, BMP #### [facility] [address] [address] [address] Yaya Cee Sodium [Moles/Vol] 140 mmol/L Normal 136-145 [facility] Comment on above: Performed By: #### T SH, LIPID, LIVER, BMP #### [facility] [address] [address] [address] Yaya Cee Urea nitrogen [Mass/Vol] 7.0 mg/dL Normal 7.0-18.0 [facility] Comment on above: Performed By: #### T SH, LIPID, LIVER, BMP #### [facility] [address] [address] [address] Yaya Cee Urea nitrogen/Creatinine [Mass ratio] 11.1 mg/mg Normal [facility] Comment on above: Performed By: #### T SH, LIPID, LIVER, BMP #### [facility] [address] [address] [address] Yaya Cee TSHon 12-09-2021 TSH 0.600 uIU/mL Normal 0.358-3.740 [facility] Comment on above: Performed By: #### T SH, LIPID, LIVER, BMP #### [facility] [address] [place], [place] [address] Dr. Yaya Cee TSH RANGE SEE BELOW Normal [facility] Comment on above: Result Comment: <0.3 4 UIU/ml HYPERTHYROID 0.34-5.60 UIU/ml EUTHYROID >5.60 UIU/ml HYPOTHYROID Performed By: #### T SH, LIPID, LIVER, BMP #### [facility] [address] [address] [address] Yaya Cee Vital Signs Date Time Vital Sign Value Performing Clinician Facility 08-22-2024 09:19-0500 Body height 165.1 cm [facility] 08-22-2024 09:19-0500 Body mass index (BMI) [Ratio] 28.4 kg/m2 [facility] 08-22-2024 09:19-0500 Body temperature 97.8 [degF] [facility] [place] [facility] 08-22-2024 09:19-0500 Body weight 77.56 kg [facility] 08-22-2024 09:19-0500 Diastolic blood pressure 83 mm[Hg] [facility] 08-22-2024 09:19-0500 Heart rate 61 /min [facility] 08-22-2024 09:19-0500 Respiratory rate 16 /min [facility] [place] [facility] 08-22-2024 09:19-0500 SaO2% (BldA) [Mass fraction] 97 % [facility] 08-22-2024 09:19-0500 Systolic blood pressure 156 mm[Hg] [facility] 08-11-2024 10:47-0500 Body height 165.1 cm Bandar Espinosa DPM Work Phone: [facility] 08-11-2024 10:47-0500 Body mass index (BMI) [Ratio] 28.29 kg/m2 Bandar Espinosa DPM Work Phone: [facility] 08-11-2024 10:47-0500 Body weight 77.11 kg Bandar Espinosa DPM Work Phone: [facility] 08-11-2024 10:47-0500 Respiratory rate 16 /min Bandar Espinosa DPM Work Phone: [facility] 08-01-2024 13:12-0500 Body height 165.1 cm Howard Schumacher MD Work Phone: [facility] 08-01-2024 13:12-0500 Body mass index (BMI) [Ratio] 28.29 kg/m2 Howard Schumacher MD Work Phone: [facility] 08-01-2024 13:12-0500 Body temperature 98.6 [degF] Howard Schumacher MD Work Phone: [facility] 08-01-2024 13:12-0500 Body weight 77.11 kg Howard Schumacher MD Work Phone: [facility] 08-01-2024 13:12-0500 Diastolic blood pressure 80 mm[Hg] Howard Schumacher MD Work Phone: [facility] 08-01-2024 13:12-0500 Heart rate 104 /min Howard Schumacher MD Work Phone: [facility] 08-01-2024 13:12-0500 Respiratory rate 22 /min Howard Schumacher MD Work Phone: [facility] 08-01-2024 13:12-0500 SaO2% (BldA) [Mass fraction] 97 % Howard Schumacher MD Work Phone: [facility] 08-01-2024 13:12-0500 Systolic blood pressure 168 mm[Hg] Howard Schumacher MD Work Phone: [facility] 07-28-2024 11:08-0500 Body height 165.1 cm Bandar Espinosa DPM Work Phone: [facility] 07-28-2024 11:08-0500 Body mass index (BMI) [Ratio] 26.63 kg/m2 Bandar Espinosa DPM Work Phone: [facility] 07-28-2024 11:08-0500 Body weight 72.58 kg Bnadar Espinosa DPM Work Phone: [facility] 07-28-2024 11:08-0500 Respiratory rate 16 /min Bandar Espinosa DPM Work Phone: [facility] 04-01-2024 09:51-0400 Body height 165.1 cm David Itzkowitz DO Work Phone: [facility] 04-01-2024 09:51-0400 Body mass index (BMI) [Ratio] 27.76 kg/m2 David Itzkowitz DO Work Phone: [facility] 04-01-2024 09:51-0400 Body weight 75.66 kg David Itzkowitz DO Work Phone: [facility] 04-01-2024 09:51-0400 Diastolic blood pressure 88 mm[Hg] David Itzkowitz DO Work Phone: [facility] 04-01-2024 09:51-0400 Systolic blood pressure 152 mm[Hg] David Itzkowitz DO Work Phone: [facility] 02-11-2024 08:23-0400 Body temperature 97.8 [degF] MD Lisa Hennessy Work Phone: [facility] 02-11-2024 08:23-0400 Body weight 76.2 kg MD Lisa Hennessy Work Phone: [facility] 02-11-2024 08:23-0400 Diastolic blood pressure 85 mm[Hg] MD Lisa Hennessy Work Phone: [facility] 02-11-2024 08:23-0400 Heart rate 65 /min MD Lisa Hennessy Work Phone: [facility] 02-11-2024 08:23-0400 Respiratory rate 16 /min MD Lisa Hennessy Work Phone: [facility] 02-11-2024 08:23-0400 SaO2% (BldA) [Mass fraction] 100 % MD Lisa Hennessy Work Phone: [facility] 02-11-2024 08:23-0400 Systolic blood pressure 158 mm[Hg] MD Lisa Hennessy Work Phone: [facility] 07-02-2023 12:55-0500 Body temperature 97.9 [degF] MD Lisa Hennessy Work Phone: [facility] 07-02-2023 12:55-0500 Body weight 80.28 kg MD Lisa Hennessy Work Phone: [facility] 07-02-2023 12:55-0500 Diastolic blood pressure 96 mm[Hg] MD Lisa Hennessy Work Phone: [facility] 07-02-2023 12:55-0500 Heart rate 73 /min MD Lisa Hennessy Work Phone: [facility] 07-02-2023 12:55-0500 Respiratory rate 16 /min MD Lisa Hennessy Work Phone: [facility] 07-02-2023 12:55-0500 SaO2% (BldA) [Mass fraction] 96 % MD Lisa Hennessy Work Phone: [facility] 07-02-2023 12:55-0500 Systolic blood pressure 167 mm[Hg] MD Lisa Hennessy Work Phone: [facility] 04-16-2023 11:06-0400 Body temperature 98.1 [degF] MD Lisa Hennessy Work Phone: [facility] 04-16-2023 11:06-0400 Body weight 77.83 kg MD Lisa Hennessy Work Phone: [facility] 04-16-2023 11:06-0400 Diastolic blood pressure 87 mm[Hg] MD Lisa Hennessy Work Phone: [facility] 04-16-2023 11:06-0400 Heart rate 63 /min MD Lisa Hennessy Work Phone: [facility] 04-16-2023 11:06-0400 Respiratory rate 20 /min MD Lisa Hennessy Work Phone: [facility] 04-16-2023 11:06-0400 SaO2% (BldA) [Mass fraction] 99 % MD Lisa Hennessy Work Phone: [facility] 04-16-2023 11:06-0400 Systolic blood pressure 131 mm[Hg] MD Lisa Hennessy Work Phone: [facility] 03-12-2023 13:02-0400 Body temperature 98.8 [degF] MD Lisa Hennessy Work Phone: [facility] 03-12-2023 13:02-0400 Body weight 75.61 kg MD Lisa Hennessy Work Phone: [facility] 03-12-2023 13:02-0400 Diastolic blood pressure 86 mm[Hg] MD Lisa Hennessy Work Phone: [facility] 03-12-2023 13:02-0400 Heart rate 55 /min MD Lisa Hennessy Work Phone: [facility] 03-12-2023 13:02-0400 Respiratory rate 18 /min MD Lisa Hennessy Work Phone: [facility] 03-12-2023 13:02-0400 SaO2% (BldA) [Mass fraction] 99 % MD Lisa Hennessy Work Phone: [facility] 03-12-2023 13:02-0400 Systolic blood pressure 174 mm[Hg] MD Lisa Hennessy Work Phone: [facility] 12-31-2022 13:23-0400 Body temperature 97.8 [degF] MD Lisa Hennessy Work Phone: [facility] 12-31-2022 13:23-0400 Body weight 76.2 kg MD Lisa Hennessy Work Phone: [facility] 12-31-2022 13:23-0400 Diastolic blood pressure 84 mm[Hg] MD Lisa Hennessy Work Phone: [facility] 12-31-2022 13:23-0400 Heart rate 62 /min MD Lisa Hennessy Work Phone: [facility] 12-31-2022 13:23-0400 Respiratory rate 16 /min MD Lisa Hennessy Work Phone: [facility] 12-31-2022 13:23-0400 SaO2% (BldA) [Mass fraction] 98 % MD Lisa Hennessy Work Phone: [facility] 12-31-2022 13:23-0400 Systolic blood pressure 172 mm[Hg] MD Lisa Hennessy Work Phone: [facility] 09-11-2022 14:57-0500 Body height 165.1 cm MD Lisa Hennessy Work Phone: [facility] 09-11-2022 14:57-0500 Body temperature 98.4 [degF] MD Lisa Hennessy Work Phone: [facility] 09-11-2022 14:57-0500 Body weight 76.1 kg MD Lisa Hennessy Work Phone: [facility] 09-11-2022 14:57-0500 Diastolic blood pressure 78 mm[Hg] MD Lisa Hennessy Work Phone: [facility] 09-11-2022 14:57-0500 Heart rate 89 /min MD Lisa Hennessy Work Phone: [facility] 09-11-2022 14:57-0500 Respiratory rate 20 /min MD Lisa Hennessy Work Phone: [facility] 09-11-2022 14:57-0500 SaO2% (BldA) [Mass fraction] 99 % MD Lisa Hennessy Work Phone: [facility] 09-11-2022 14:57-0500 Systolic blood pressure 144 mm[Hg] MD Lisa Hennessy Work Phone: [facility] 06-18-2022 08:57-0500 Body temperature 98.2 [degF] MD Lisa Hennessy Work Phone: [facility] 06-18-2022 08:57-0500 Body weight 76.3 kg MD Lisa Hennessy Work Phone: [facility] 06-18-2022 08:57-0500 Diastolic blood pressure 77 mm[Hg] MD Lisa Hennessy Work Phone: [facility] 06-18-2022 08:57-0500 Heart rate 66 /min MD Lisa Hennessy Work Phone: [facility] 06-18-2022 08:57-0500 Respiratory rate 18 /min MD Lisa Hennessy Work Phone: [facility] 06-18-2022 08:57-0500 SaO2% (BldA) [Mass fraction] 98 % MD Lisa Hennessy Work Phone: [facility] 06-18-2022 08:57-0500 Systolic blood pressure 136 mm[Hg] MD Lisa Hennessy Work Phone: [facility] 04-02-2022 08:43-0400 Body temperature 97 [degF] MD Howard Schumacher Work Phone: [facility] 04-02-2022 08:43-0400 Body weight 74.38 kg MD Howard Schumacher Work Phone: [facility] 04-02-2022 08:43-0400 Diastolic blood pressure 85 mm[Hg] MD Howard Schumacher Work Phone: [facility] 04-02-2022 08:43-0400 Heart rate 66 /min MD Howard Schumacher Work Phone: [facility] 04-02-2022 08:43-0400 Respiratory rate 16 /min MD Howard Schumacher Work Phone: [facility] 04-02-2022 08:43-0400 SaO2% (BldA) [Mass fraction] 98 % MD Howard Schumacher Work Phone: [facility] 04-02-2022 08:43-0400 Systolic blood pressure 159 mm[Hg] MD Howard Shcumacher Work Phone: [facility] 03-14-2022 13:12-0400 Body temperature 97.8 [degF] MD Howard Schumacher Work Phone: [facility] 03-14-2022 13:12-0400 Body weight 74.84 kg MD Howard Schumacher Work Phone: [facility] 03-14-2022 13:12-0400 Diastolic blood pressure 82 mm[Hg] MD Howard Schumacher Work Phone: [facility] 03-14-2022 13:12-0400 Heart rate 99 /min MD Howard Schumacher Work Phone: [facility] 03-14-2022 13:12-0400 Respiratory rate 16 /min MD Howard Schumacher Work Phone: [facility] 03-14-2022 13:12-0400 SaO2% (BldA) [Mass fraction] 98 % MD Howard Schumacher Work Phone: [facility] 03-14-2022 13:12-0400 Systolic blood pressure 165 mm[Hg] MD Howard Schumacher Work Phone: [facility] 03-07-2022 08:55-0400 Diastolic blood pressure 84 mm[Hg] MD Howard Schumacher Work Phone: [facility] 03-07-2022 08:55-0400 Heart rate 80 /min MD Howard Schumacher Work Phone: [facility] 03-07-2022 08:55-0400 Respiratory rate 20 /min MD Howard Schumacher Work Phone: [facility] 03-07-2022 08:55-0400 SaO2% (BldA) [Mass fraction] 95 % MD Howard Schumacher Work Phone: [facility] 03-07-2022 08:55-0400 Systolic blood pressure 135 mm[Hg] MD Howard Schumacher Work Phone: [facility] 03-07-2022 07:10-0400 Body height 165.1 cm MD Howard Schumacher Work Phone: [facility] 03-07-2022 07:10-0400 Body mass index (BMI) [Ratio] 27.3 kg/m2 MD Howard Schumacher Work Phone: [facility] 03-07-2022 07:10-0400 Body weight 74.38 kg MD Howard Schumacher Work Phone: [facility] 03-07-2022 06:11-0400 Body temperature 98 [degF] MD Howard Schumacher Work Phone: [facility] 02-18-2022 20:17-0400 Body mass index (BMI) [Ratio] 26.4 kg/m2 MD Howard Schumacher Work Phone: [facility] 02-18-2022 15:30-0400 Diastolic blood pressure 76 mm[Hg] MD Howard Schumacher Work Phone: [facility] 02-18-2022 15:30-0400 Heart rate 59 /min MD Howard Schumacher Work Phone: [facility] 02-18-2022 15:30-0400 Respiratory rate 16 /min MD Howard Schumacher Work Phone: [facility] 02-18-2022 15:30-0400 SaO2% (BldA) [Mass fraction] 95 % MD Howard Schumacher Work Phone: [facility] 02-18-2022 15:30-0400 Systolic blood pressure 136 mm[Hg] MD Howard Schumacher Work Phone: [facility] 02-18-2022 13:38-0400 Body temperature 97.9 [degF] MD Howard Schumacher Work Phone: [facility] 02-18-2022 13:38-0400 Inhaled oxygen flow rate 6 L/min MD Howard Schumacher Work Phone: [facility] 02-18-2022 11:06-0400 Body height 165.1 cm MD Howard Schumacher Work Phone: [facility] 02-18-2022 11:06-0400 Body weight 72 kg MD Howard Schumacher Work Phone: [facility] 01-29-2022 13:25-0400 Body temperature 97.2 [degF] MD Lisa Hennessy Work Phone: [facility] 01-29-2022 13:25-0400 Body weight 72.57 kg MD Lisa Hennessy Work Phone: [facility] 01-29-2022 13:25-0400 Diastolic blood pressure 90 mm[Hg] MD Lisa Hennessy Work Phone: [facility] 01-29-2022 13:25-0400 Heart rate 72 /min MD Lisa Hennessy Work Phone: [facility] 01-29-2022 13:25-0400 Respiratory rate 16 /min MD Lisa Hennessy Work Phone: [facility] 01-29-2022 13:25-0400 SaO2% (BldA) [Mass fraction] 98 % MD Lisa Hennessy Work Phone: [facility] 01-29-2022 13:25-0400 Systolic blood pressure 160 mm[Hg] MD Lisa Hennessy Work Phone: [facility] 07-06-2022 12:53-0400 Body height 165.1 cm MD Lisa Hennessy Work Phone: [facility] Encounters Encounter Date Encounter Type Care Provider Facility Start: 09-15-2024 End: 09-15-2024 Clinisync Result Encounter Howard Schumacher MD Work Phone: [facility] Unsolicited Start: 09-15-2024 End: 09-15-2024 Clinisync Result Encounter Howard Schumacher MD Work Phone: [facility] Unsolicited Start: 09-15-2024 End: 09-15-2024 Orders Only Howard Schumacher MD Work Phone: [facility] Comment on above: Elevated liver funct ion tests (Primary Dx) Start: 08-22-2024 End: 08-22-2024 ambulatory Howard Schumacher [facility] Work Phone: Start: 08-22-2024 End: 08-22-2024 Patient encounter procedure [facility] Work Phone: Start: 08-11-2024 End: [...] 30 minutes Bandar Espinosa DPM Work Phone: [facility] Comment on above: Abscess, toe, left ( Primary Dx); Onychocryptosis; Toe pain, left Start: 07-28-2024 End: 07-28-2024 ambulatory BANDAR ESPINOSA Not Available Start: 04-01-2024 End: 04-01-2024 Office outpatient visit 25 minutes David Magana DO Work Phone: [facility] Comment on above: 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, estrogen receptor positive (CMS/HCC) (Primary Dx) Start: 04-01-2024 End: 04-01-2024 ambulatory DAVID MAGANA Not Available Start: 02-11-2024 End: 02-11-2024 ambulatory MD Lisa Hennessy Work Phone: [facility] Work Phone: Start: 02-11-2024 End: 02-11-2024 Patient encounter procedure MD Lisa Hennessy Work Phone: [facility] Amb[facility] Work Phone: Start: 02-11-2024 Registered Recurring MD Lsia fernandes [facility] Work Phone: Start: 02-01-2024 End: 02-01-2024 ambulatory HOWARD PARKSR Not Available Start: 11-09-2023 End: 11-09-2023 ambulatory DAVID H ITZKOWITZ Not Available Start: 09-29-2023 End: 09-29-2023 ambulatory David Itzkowitz Facility:[facility] Start: 09-24-2023 End: 09-24-2023 ambulatory DAVID H ITZKOWITZ Not Available Start: 07-28-2023 End: 07-28-2023 ambulatory MD Lisa Hennessy Work Phone: [facility] Work Phone: Start: 07-28-2023 End: 07-28-2023 Departed Referred MD Lisa Hennessy Work Phone: [facility] [place] Work Phone: Start: 07-02-2023 Registered Recurring MD Lisa fernandes [facility]: Start: 04-16-2023 End: 04-16-2023 ambulatory MD Lisa Hennessy Work Phone: [facility] Work Phone: Start: 04-16-2023 End: 04-16-2023 Registered Recurring MD Lisa Hennessy Work Phone: [facility] Work Phone: Start: 03-12-2023 End: 03-12-2023 ambulatory MD Lisa Hennessy Work Phone: [facility] Work Phone: Start: 03-12-2023 End: 03-12-2023 Registered Recurring MD Lisa Hennessy [facility]: Start: 12-31-2022 End: 12-31-2022 ambulatory MD Lisa Hennessy Work Phone: [facility] Work Phone: Start: 12-31-2022 End: 12-31-2022 Registered Recurring MD Lisa Hennessy [facility]: Start: 09-11-2022 End: 09-11-2022 ambulatory MD Lisa Hennessy Work Phone: [facility] Work Phone: Start: 09-11-2022 End: 09-11-2022 Registered Recurring MD Lisa Hennessy [facility] Start: 06-18-2022 End: 06-18-2022 ambulatory MD Lisa Hennessy Work Phone: [facility] Work Phone: Start: 06-18-2022 End: 06-18-2022 Registered Recurring MD Lisa [facility] Start: 04-02-2022 End: 04-02-2022 Registered Recurring MD Howard Schumacher [facility] Start: 03-14-2022 End: 03-14-2022 Registered Recurring MD Howard Schumacher [facility] Start: 03-07-2022 End: 03-07-2022 Admission to same day surgery center MD Howard Schumacher Work Phone: [facility] [place] Start: 03-05-2022 End: 03-05-2022 Patient encounter procedure MD Howard Schumacher Work Phone: [facility] Start: 02-18-2022 End: 02-18-2022 Admission to same day surgery center MD Howard Schumacher Work Phone: [facility] [place] Start: 02-14-2022 End: 02-14-2022 Patient encounter procedure MD Lisa Hennessy Work Phone: [facility] Start: 02-10-2022 End: 02-10-2022 Patient encounter procedure MD Lisa Hennessy Work Phone: [facility] Start: 02-07-2022 Registered Recurring MD Lisa fernandes Work Phone: [facility] Start: 01-01-2022 End: 01-01-[address] HOWARD SCHUMACHER Facility:[facility] Start: 12-25-2021 End: 12-26-[address] HOWARD SCHUMACHER Facility:[facility] Start: 12-13-2021 Encounter for genera l adult medical examination without abnormal findings DR HOWARD SCHUMACHER [facility] Start: 12-09-2021 End: 12-10-[address] HOWARD SCHUMACHER Facility:[facility] Start: 12-09-2021 End: 12-10-2021 Encounter for general adult medical examination without abnormal findings DR HOWARD SCHUMAHCER Facility:[facility] Procedures Date Procedure Procedure Detail Performing Clinician Start: 09-15-2024 ALL CBC WITH AUTO DIFF Howard Schumacher MD Work Phone: Start: 12-31-2023 Ultrasonography of limb MD Lisa Hennessy Work Phone: Start: 12-31-2023 Bilateral mammography Dmitriy Hennessy Work Phone: Start: 03-23-2023 NM bone [...] 02/06/2025 11:30 AM EDT Office Visit [facility] [address] [place] [id number] Howard Schumacher MD [address] [place] [address] [facility] Start: 10-06-2024 End: 10-06-2024 Patient encounter procedure 10/06/2024 11:10 AM EDT Procedure Visit [facility] [address] [facility] [address] [place] [phone] Bandar Espinosa, DPDmitriy [address] [facility] [address] [place] [address] [facility] Start: 09-30-2024 End: 09-30-2024 Patient encounter procedure 09/30/2024 10:15 AM EST [facility] [address] [facility] [address] [place] [address] David Magana DO [address] [facility] [address] [place] [address] [facility] Start: 09-15-2024 End: 09-15-2025 Hepatitis 1996 panel - Serum Hepatitis panel, acute Lab Routine Elevated liver function tests Expected: 09/15/2024 (Approximate), Expires: 09/15/2025 [facility] Work Phone: Comment on above: Expected: 09/15/2024 (Approximate), Expires: 09/15/2025 Start: 09-15-2024 End: 09-15-2025 US Abdomen limited US LIVER Imaging Routine Elevated liver function tests Expected: 09/15/2024, Expires: 09/15/2025 [facility] Comment on above: Expected: 09/15/2024 , Expires: 09/15/2025 Start: 08-11-2024 End: 08-11-2024 Patient encounter procedure [facility] Comment on above: Onychocryptosis (Ely heidi Dx); Toe pain, left; Abscess, toe, left Start: 08-04-2024 Screening for malign ant neoplasm of colon Colorectal Cancer Screening [facility] Comment on above: Postponed from 04/18 (Patient Refused) Start: 08-01-2024 End: 08-01-2025 Basic metabolic 1998 panel - Serum or Plasma Basic metabolic panel Lab Routine Encounter for long-term (current) use of medications Expected: 08/01/2024 (Approximate), Expires: 08/01/2025 [facility] Work Phone: Comment on above: Expected: 08/01/2024 (Approximate), Expires: 08/01/2025 Start: 08-01-2024 End: 08-01-2025 CBC W Auto Differential panel - Blood CBC and differential Lab Routine Encounter for long-term (current) use of medications Expected: 08/01/2024 (Approximate), Expires: 08/01/2025 [facility] Comment on above: Expected: 08/01/2024 (Approximate), Expires: 08/01/2025 Start: 08-01-2024 End: 08-01-2025 Hepatic function 2000 panel - Serum or Plasma Hepatic function panel Lab Routine Encounter for long-term (current) use of medications Expected: 08/01/2024 (Approximate), Expires: 08/01/2025 [facility] Comment on above: Expected: 08/01/2024 (Approximate), Expires: 08/01/2025 Start: 08-01-2024 End: 08-01-2025 Lipid 1996 panel - Serum or Plasma Lipid panel Lab Routine Dyslipidemia (CMS/HCC) Expected: 08/01/2024 (Approximate), Expires: 08/01/2025 [facility] Comment on above: Expected: 08/01/2024 (Approximate), Expires: 08/01/2025 Start: 08-01-2024 End: 08-01-2024 Patient encounter procedure 08/01/2024 1:00 PM EST Office Visit [facility] [address] [place] [phone] Howard Schumacher MD [address] [place] [phone] [facility] Start: 07-28-2024 End: 07-28-2024 Patient encounter procedure 07/28/2024 11:00 AM EST Office Visit [facility] [address] [facility] [address] [place] [phone] Bandar Espinosa DPM [address] [facility] [address] [place] [address] Arrived [facility] Comment on above: Arrived Start: 03-27-2024 Influenza vaccination Influenza Vacc ine (#1) [facility] Start: 03-14-2022 Registered Recurring [id number] [facility] Start: 03-07-2022 [facility] Work Phone: Start: 03-07-2022 OR Wound Debridement/I&D/Hydradeni tis (Right) OR Wound Debridement/I&D/Hydrad enitis (Right) [facility] Start: 03-07-2022 [facility] Work Phone: Start: 03-07-2022 End: 03-07-2022 Admission to same day surgery center Departed Surgical Day Care [facility] [place] Start: 03-05-2022 End: 03-05-2022 Patient encounter procedure Departed Clinical [id number] Start: 02-18-2022 [facility] Work Phone: Start: 02-18-2022 [facility] Work Phone: Start: 06-11-2000 Pneumococcal Vaccine : 65+ Years (2 of 2 - PCV) Pneumococcal Vaccine: 65+ Years (2 of 2 - PCV) [facility] Start: 1988 Screening for malign ant neoplasm of cervix [facility] Start: 1979 Screening for malign ant neoplasm of cervix Pap Smear [facility] Start: 1958 Medicare Annual Well ness (AWV) Medicare Annual Wellness (AWV) [facility] Start: 1958 Screening for malign ant neoplasm of colon [facility] Adenosine monophosphate.cyclic [Moles/volume] in Serum or Plasma [facility] Comprehensive metabo lic 2000 panel - Serum or Plasma [facility] DXA Skeletal system. axial Views for bone density [facility] Work Phone: DXA Skeletal system. axial Views for bone density [facility] Homogenous nuclear A b pattern [Titer] in Serum [facility] MG Breast - bilatera l Diagnostic [facility] MG Breast - bilatera l Diagnostic [facility] MG Breast - bilatera l Screening [facility] Needle biopsy [facility] Work Phone: NM Whole body Bone Views [facility] Nuclear Ab [Titer] i n Serum [facility] Patient Education Anastrozole [facility] Work Phone: Patient referral [facility] Work Phone: Rheumatoid factor [Units/volume] in Serum or Plasma [facility] Ultrasonic guidance for needle biopsy [facility] Immunizations Immunization Date Immunization Notes Care Provider Fa cility 06-04-2023 RSV, recombinant, protein subunit RSVpreF, adjuvant reconstitu, 120mcg/0.5mL, PF (Arexvy) David Itzkowitz DO Work Phone: [facility] 05-21-2023 Influenza, Seasonal, Quadrivalent, Adjuvanted David Itzkowitz DO Work Phone: [facility] 05-21-2023 influenza virus vacc ine, unspecified formulation David Itzkowitz DO Work Phone: [facility] 05-13-2022 influenza, injectabl e, quadrivalent, preservative free David Itzkowitz DO Work Phone: [facility] 10-29-2021 COVID-19 mRNA-1273 (Moderna) MD Lisa Hennessy Work Phone: [facility] 06-19-2021 COVID-19 mRNA-1273 (Moderna) MD Lisa Hennessy Work Phone: [facility] 06-19-2021 influenza, injectabl e, quadrivalent, preservative free David Itzkowitz DO Work Phone: [facility] 10-26-2020 COVID-19 mRNA-1273 (Moderna) MD Lisa Hennessy Work Phone: [facility] 09-28-2020 COVID-19 mRNA-1273 (Moderna) MD Lisa Hennessy Work Phone: [facility] 04-05-2020 influenza, injectabl e, quadrivalent, preservative free David Itzkowitz DO Work Phone: [facility] 06-11-1999 pneumococcal polysaccharide vaccine, 23 valent David Itzkowitz DO Work Phone: [facility] Payers Date Payer Category Payer Medicare (Managed Care) [facility] [id number] 2024 Unknown [employer] [id number] 2024-Present [id number] [address] [id number] 2024 Unknown [id number] 2023 Self-pay [id number] 2023 Medicare [id number] 1959 Unknown [id number] 1958 Unknown [id number]. 593 1958 Unknown [id number] [id number]. 593 1958 Unknown [id number]. 593 1958 Unknown [id number] [id number]. 1259 1958 Unknown [id number] [id number]. 1259 1958 Unknown [id number] [id number]. 1259 1958 Unknown [id number] [id number]. 1259 1958 Unknown [id number] [id number]. 1259 1958 Unknown [id number] [id number]. 1259 1958 Unknown [id number] [id number]. 1259 Unknown Casandra Brownlee [facility] [id number] Unknown [id number] 531 Unknown [id number]. 531 Social History Date Type Detail Facility Start: 04-12-1992 End: 04-12-2022 Tobacco smoking status [facility] Smoker (finding) [facility] Start: 1960 Sex Assigned At Female F [facility] Start: 06-11-2022 End: 04-01-2024 Tobacco smoking status [facility] Ex-smoker (finding) [facility] Start: 04-12-1992 End: 04-12-2022 History of tobacco use Cigarette Smoker [facility] Start: 08-04-2023 End: 04-01-2024 Cigarettes smoked current (pack per day) - Reported 0.5 [facility] Start: 04-01-2024 Tobacco use and exposure Smokeless tobacco non-user [facility] Start: 04-01-2024 End: 08-11-2024 Alcoholic beverage intake Current drinker of alcohol (finding) [facility] Start: 08-04-2023 End: 04-01-2024 Tobacco use panel [facility] Start: 07-10-2023 Tobacco Comment Last smoked : 1-3 months [facility] Start: 07-10-2023 Alcohol Comment caffeine intak e : soda/pop; coffee [facility] Start: 1960 Sex assigned at Not on file [facility] Start: 08-22-2024 Sex Female (finding) [facility] Goals Date Patient Goal Desired Activity /State Clinical Notes 01-30-2022 to 08-11-2024 Bandar Espinosa, DPM - 08/11/2024 10:50 AM Rob Schumacher [...] low risk for fall Breast cancer (CMS/HCC) [facility] ER/MS + Her2 neg Genetic testing negative Measles [...] ORTHO: Minimal pain on palpation to the [id number] toe nail ASSESSMENT 14 d s/p permanent [...] Bandar Espinosa DPM documented in this encounter [facility] 08-01-2024 History of Presen t illness Narrative [...] Orders Lipid panel documented in this encounter [facility] 07-28-2024 History of Presen t illness Narrative [...] low risk for fall Breast cancer (CMS/HCC) [facility] ER/MS + Her2 neg Genetic testing negative Measles [...] Bandar Espinosa DPM documented in this encounter [facility] 04-16-2023 Progress note Note Date/Time April 16, 2023 12:44pm [facility] [place] [address] Hem/Onc Follow Up Note - OP Signed Patient: Denia Al MR#: [id number] : 1960 Acct:[id number] Age/Sex: 62 / F Type: REG RCR [...] She had follow up CT scan of [facility] abdomen/pelvis done at [facility] yesterday. This was done to evaluate her post operatively after large, non malignant adnexal mass was removed on 01/21/2023 at [facility]. Denies weight loss, lymphadenopathy, chest pain, SOB, [...] 13 cm. She was urgently transferred to [facility] and underwent total hysterectomy, bilateral [...] daily. OK for 3 month f/u with [employer] and 6 month f/u with me, sooner [...] 50mm, margins negative for carcinoma, ER 95%, MS 95%, Her2 1+ by IHC, negative. 2 sentinel lymph nodes negative for involvement by tumor. pT2 pN0 Mx. Interestingly, original pathology was invasive ductal carcinoma (lumpectomy final pathology invasive lobular carcinoma). --No residual fullness or pain at surgical site. Discussed Oncotype Dx--will send pathology for testing and followup in 2 weeks. Moderate complexity 35 minute followup visit. 02/07/2022: Phone followup today to discuss [facility] tumor board discussion forplan with Dr. Magana for invasive ductal carcinoma of right breast. I contacted patient today after discussion in [facility] Tumor Board this am. Right axillary [...] ductal carcinoma (provisional grade 2) ER 95%, MS 95%, Her-2 equivocal IHC 1+ with equivocal [...] ovarian or other cancers. I reviewed her [facility] mammography 12/25/21 and ultrasound 01/01/2022 reports. Breast mass is about 3.6cm in greatest dimension on US (3.8 cm on mammogram). US guided breast biopsy on 01/01/2022 revealed invasive ductal carcinoma (provisional grade 2) ER 95%, MS 95%, Her-2 equivocal IHC 1+ with equivocal [...] week, I will discuss her case at [facility] tumor board 02/03/2022 then coordinate phone followup to discuss multidisciplinary planof care. DIAGNOSIS: New diagnosis right upper inner quadrant breast cancer 3.6cm primary by US (clinical T2 Nx Mx) --01/01/2022 biopsy: invasive ductal carcinoma (provisional grade 2) ER 95%, MS 95%, Her-2 equivocal IHC 1+ with equivocal FISH (HER2/CEP 17 1.4; Her2 copy number 4.0). --02/18/2022 lumpectomy with sentinel lymph node biopsy: Invasive Lobular Carcinoma, [place] histologic score 8/9 (score 3), size 50mm, margins negative for carcinoma, ER 95%, MS 95%, Her2 1+ by IHC, negative. 2 [...] Negative for environmental allergies and food allergies. [facility] - Medical History Medical History: Medical History [...] lymph node biopsy now Invasive Lobular Carcinoma, [place] histologic score 8/9 (score 3), size 50mm, margins negative for carcinoma, ER 95%, MS 95%, Her2 1+ by IHC, negative. 2 [...] invasive ductal carcinoma (provisional grade 2)ER 95%, MS 95%, Her-2 equivocal IHC 1+ with equivocal [...] week, I will discuss her case at [facility] tumor board 02/03/2022 then coordinate phone followup to discuss multidisciplinary plan of care. High complexity visit--60 min face to face, 30 min to review outside records andcoordinate tumor board discussion of plan. 03/14/2022: Here for followup after right breast lumpectomy/sentinel lymph node on 02/18/2022. She had evacuation of post op hematoma on 03/07/2022. We reviewedpathology showing Invasive Lobular Carcinoma, [place] histologic score 8/9 (score 3), size 50mm, margins negative for carcinoma, ER 95%, MS 95%, [facility]. 2 sentinel lymph nodes negative for involvement by tumor. pT2 pN0 Mx. ----Today we discussed Oncotype Dx testing due to high grade ER+, MS+, Her2 negative cancer. She understands that if [...] in 2 years (03/2024). Next f/u with [employer] as well as Dr. Magana for surveillance. [...] 13 cm. She was urgently transferred to [facility] and underwent total hysterectomy, bilateral [...] CT scan of the abdomen/pelvis done at [facility] yesterday. This was done to evaluate her post operatively after large, non malignant adnexal mass was removed on 01/21/2023 at [facility]. She was told her CT scan showed [...] and bilateral [facility] Pathology returned consistent with benign, [...] and bilateral salpingo-oophorectomy on 01/21/2023 at [facility]. Pathology returned consistent with benign, [...] for coordination of care (as documented) and [id number] counseling of patient and/or family. Dictated By: Ciera Vitale APRN DD/ [id number] Signed By: <Electronically signed by ALEX Vitale> 04/16/23 1252 [facility] Work Phone: 1([phone]) 270-597008-21-2023 Progress note Author Ciera Vitale [facility] March 16, 2023 3:20pm Note Date/Time March 12, 2023 1: 58pm [facility] [place] [address] Hem/Onc Follow Up Note - OP Signed with Addenda Patient: Denia Al MR#: [id number] : 1960 Acct:[id number] Age/Sex: 62 / F Type: REG RCR [...] of polyarthralgia/myalgias and synovitis. Will refer patientto [place] [facility] - and she was informed of [...] 13 cm. She was urgently transferred to [facility] and underwent total hysterectomy, bilateral [...] next mammogram in December 2022. Saw Dr. aMgana 1 month ago on 08/04/2022 with normal [...] daily. OK for 3 month f/u with [employer] and 6 month f/u with me, sooner [...] 50mm, margins negative for carcinoma, ER 95%, MS 95%, Her2 1+ by IHC, negative. 2 sentinel lymph nodes negative for involvement by tumor. pT2 pN0 Mx. Interestingly, original pathology was invasive ductal carcinoma (lumpectomy final pathology invasive lobular carcinoma). --No residual fullness or pain at surgical site. Discussed Oncotype Dx--will send pathology for testing and followup in 2 weeks. Moderate complexity 35 minute followup visit. 02/07/2022: Phone followup today to discuss [facility] tumor board discussion forplan with Dr. Magana for invasive ductal carcinoma of right breast. I contacted patient today after discussion in [facility] Tumor Board this am. Right axillary [...] ductal carcinoma (provisional grade 2) ER 95%, MS 95%, Her-2 equivocal IHC 1+ with equivocal [...] ovarian or other cancers. I reviewed her [facility] mammography 12/25/21 and ultrasound 01/01/2022 reports. Breast mass is about 3.6cm in greatest dimension on US (3.8 cm on mammogram). US guided breast biopsy on 01/01/2022 revealed invasive ductal carcinoma (provisional grade 2) ER 95%, MS 95%, Her-2 equivocal IHC 1+ with equivocal [...] week, I will discuss her case at [facility] tumor board 02/03/2022 then coordinate phone followup to discuss multidisciplinary planof care. DIAGNOSIS: New diagnosis right upper inner quadrant breast cancer 3.6cm primary by US (clinical T2 Nx Mx) --01/01/2022 biopsy: invasive ductal carcinoma (provisional grade 2) ER 95%, MS 95%, Her-2 equivocal IHC 1+ with equivocal FISH (HER2/CEP 17 1.4; Her2 copy number 4.0). --02/18/2022 lumpectomy with sentinel lymph node biopsy: Invasive Lobular Carcinoma, [place] histologic score 8/9 (score 3), size 50mm, margins negative for carcinoma, ER 95%, MS 95%, Her2 1+ by IHC, negative. 2 [...] Negative for environmental allergies and food allergies. [facility] - Medical History Medical History: Medical History [...] lymph node biopsy now Invasive Lobular Carcinoma, [place] histologic score 8/9 (score 3), size 50mm, margins negative for carcinoma, ER 95%, MS 95%, Her2 1+ by IHC, negative. 2 [...] invasive ductal carcinoma (provisional grade 2)ER 95%, MS 95%, Her-2 equivocal IHC 1+ with equivocal [...] week, I will discuss her case at [facility] tumor board 02/03/2022 then coordinate phone [...] 50mm, margins negative for carcinoma, ER 95%, MS 95%, Her2 1+ byIHC, negative. 2 sentinel lymph nodes negative for involvement by tumor. pT2 pN0 Mx. ----Today we discussed Oncotype Dx testing due to high grade ER+, MS+, Her2 negative cancer. She understands that if [...] in 2 years (03/2024). Next f/u with [employer] as well as Dr. Magana for surveillance. [...] 13 cm. She was urgently transferred to [facility] and underwent total hysterectomy, bilateral [...] and bilateral salpingo[facility]oophorectomy on 01/21/2023 at [facility]. Pathology returned consistent with benign, [...] and bilateral salpingo-oophorectomy on 01/21/2023 at [facility]. Pathology returned consistent with benign, [...] for coordination of care (as documented) and [id number] counseling of patient and/or family. Dictated By: Ciera Vitale APRN DD/ [id number] Signed By: <Electronically signed by ALEX Vitale> 03/12/23 1402 [facility] Work Phone: [phone]) 740-666407-27-2023 Progress note Author Ciera Vitale [facility] February 19, 2023 4:56pm Note Date/Time February 19, 2023 2:51 pm [facility] at [address] [address] Hem/Onc Follow Up Note - OP Signed Patient: Denia Al MR#: [id number] : 1960 Acct:[id number] Age/Sex: 62 / F Type: REG RCR [...] 13 cm. She was urgently transferred to [facility] and underwent total hysterectomy, bilateral [...] daily. OK for 3 month f/u with [employer] and 6 month f/u with me, sooner [...] reviewed pathology results showing Invasive Lobular Carcinoma, [place] histologic score 8/9 (score 3), size 50mm, margins negative for carcinoma, ER 95%, MS 95%, Her2 1+ by IHC, negative. 2 sentinel lymph nodes negative for involvement by tumor. pT2 pN0 Mx. Interestingly, original pathology was invasive ductal carcinoma (lumpectomy final pathology invasive lobular carcinoma). --No residual fullness or pain at surgical site. Discussed Oncotype Dx--will send pathology for testing and followup in 2 weeks. Moderate complexity 35 minute followup visit. 02/07/2022: Phone followup today to discuss [facility] tumor board discussion forplan with Dr. Magana for invasive ductal carcinoma of right breast. I contacted patient today after discussion in [facility] Tumor Board this am. Right axillary [...] ductal carcinoma (provisional grade 2) ER 95%, MS 95%, Her-2 equivocal IHC 1+ with equivocal [...] ovarian or other cancers. I reviewed her [facility] mammography 12/25/21 and ultrasound 01/01/2022 reports. Breast mass is about 3.6cm in greatest dimension on US (3.8 cm on mammogram). US guided breast biopsy on 01/01/2022 revealed invasive ductal carcinoma (provisional grade 2) ER 95%, MS 95%, Her-2 equivocal IHC 1+ with equivocal [...] week, I will discuss her case at [facility] tumor board 02/03/2022 then coordinate phone followup to discuss multidisciplinary planof care. DIAGNOSIS: New diagnosis right upper inner quadrant breast cancer 3.6cm primary by US (clinical T2 Nx Mx) --01/01/2022 biopsy: invasive ductal carcinoma (provisional grade 2) ER 95%, MS 95%, Her-2 equivocal IHC 1+ with equivocal FISH (HER2/CEP 17 1.4; Her2 copy number 4.0). --02/18/2022 lumpectomy with sentinel lymph node biopsy: Invasive Lobular Carcinoma, [place] histologic score 8/9 (score 3), size 50mm, margins negative for carcinoma, ER 95%, MS 95%, Her2 1+ by IHC, negative. 2 [...] Negative for environmental allergies and food allergies. [facility] - Medical History Medical History: Medical History [...] Other Additional comments: Patient: Denia Al MR#: [id number] : 1960 Acct:[id number] Age/Sex: 62 / F ADM Date: 3 Loc: Room: Type: [facility] RCR Attending Dr: Lisa Hennessy MD Copies [...] lymph node biopsy now Invasive Lobular Carcinoma, [place] histologic score 8/9 (score 3), size 50mm, margins negative for carcinoma, ER 95%, MS 95%, Her2 1+ by IHC, negative. 2 [...] invasive ductal carcinoma (provisional grade 2)ER 95%, MS 95%, Her-2 equivocal IHC 1+ with equivocal [...] week, I will discuss her case at [facility] tumor board 02/03/2022 then coordinate phone followup to discuss multidisciplinary plan of care. High complexity visit--60 min face to face, 30 min to review outside records andcoordinate tumor board discussion of plan. 03/14/2022: Here for followup after right breast lumpectomy/sentinel lymph node on 02/18/2022. She had evacuation of post op hematoma on 03/07/2022. We reviewedpathology showing Invasive Lobular Carcinoma, [place] histologic score 8/9 (score 3), size 50mm, margins negative for carcinoma, ER 95%, MS 95%, [facility]. 2 sentinel lymph nodes negative for involvement by tumor. pT2 pN0 Mx. ----Today we discussed Oncotype Dx testing due to high grade ER+, MS+, Her2 negative cancer. She understands that if [...] in 2 years (03/2024). Next f/u with [employer] as well as Dr. Magana for surveillance. [...] 13 cm. She was urgently transferred to [facility] and underwent total hysterectomy, bilateral [...] and bilateral salping[facility]oph[facility] on 01[facility]2023 at [facility]. 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 Plan: Hold anastrazole x 2 weeks; restart thereafter. Notify clinic sooner than next scheduled appointment if she is having increased issues, side effects. (4) Adnexal mass Diagnosed with large right adnexal mass (~ 13 cm) ; status post total hysterectomy and bilateral salpingo-oophorectomy on 01/21/2023 at [facility]. Pathology returned consistent with benign, [...] for coordination of care (as documented) and [id number] counseling of patient and/or family. Dictated By: Ciera Vitale APRN DD/ 1449 Signed By: <Electronically signed by ALEX Vitale> 02/19/23 3751 [facility] Work Phone: [phone]) 751-171206-08-2023 Progress note Author Lisa Hennessy [facility] January 01, 2023 8:42am Note Date/Time December 31, 2022 1:28p m [facility] [place] [address] Hem/Onc Follow Up Note - OP Signed Patient: Denia Al MR#: [id number] : 1960 Acct:[id number] Age/Sex: 62 / F Type: REG RCR Copies to: MD David Kay DO Marc Naderer, MD~ Subjective Date/Time [...] daily. OK for 3 month f/u with [employer] and 6 month f/u with me, sooner [...] reviewed pathology results showing Invasive Lobular Carcinoma, [place] histologic score 8/9 (score 3), size 50mm, margins negative for carcinoma, ER 95%, MS 95%, Her2 1+ by IHC, negative. 2 sentinel lymph nodes negative for involvement by tumor. pT2 pN0 Mx. Interestingly, original pathology was invasive ductal carcinoma (lumpectomy final pathology invasive lobular carcinoma). --No residual fullness or pain at surgical site. Discussed Oncotype Dx--will send pathology for testing and followup in 2 weeks. Moderate complexity 35 minute followup visit. 02/07/2022: Phone followup today to discuss [facility] tumor board discussion forplan with Dr. Magana for invasive ductal carcinoma of right breast. I contacted patient today after discussion in [facility] Tumor Board this am. Right axillary [...] ductal carcinoma (provisional grade 2) ER 95%, MS 95%, Her-2 equivocal IHC 1+ with equivocal [...] ovarian or other cancers. I reviewed her [facility] mammography 12/25/21 and ultrasound 01/01/2022 reports. Breast mass is about 3.6cm in greatest dimension on US (3.8 cm on mammogram). US guided breast biopsy on 01/01/2022 revealed invasive ductal carcinoma (provisional grade 2) ER 95%, MS 95%, Her-2 equivocal IHC 1+ with equivocal [...] week, I will discuss her case at [facility] tumor board 02/03/2022 then coordinate phone followup to discuss multidisciplinary planof care. High complexity visit--60 min face to face, 30 min to review outside records and coordinate tumor board discussion of plan. DIAGNOSIS: New diagnosis right upper inner quadrant breast cancer 3.6cm primary by US (clinical T2 Nx Mx) --01/01/2022 biopsy: invasive ductal carcinoma (provisional grade 2) ER 95%, MS 95%, Her-2 equivocal IHC 1+ with equivocal FISH (HER2/CEP 17 1.4; Her2 copy number 4.0). --02/18/2022 lumpectomy with sentinel lymph node biopsy: Invasive Lobular Carcinoma, [place] histologic score 8/9 (score 3), size 50mm, margins negative for carcinoma, ER 95%, MS 95%, Her2 1+ by IHC, negative. 2 [...] 50mm, margins negative for carcinoma, ER 95%, MS 95%, Her2 1+ by IHC, negative. 2 [...] invasive ductal carcinoma (provisional grade 2)ER 95%, MS 95%, Her-2 equivocal IHC 1+ with equivocal [...] biopsy is + for cancer, especially if [id number], she should return to consent for neoadjuvant chemotherapy with TCHP. Following her US and biopsy within the next week, I will discuss her case at [facility] tumor board 02/03/2022 then coordinate phone followup to discuss multidisciplinary plan of care. High complexity visit--60 min face to face, 30 min to review outside records andcoordinate tumor board discussion of plan. 03/14/2022: Here for followup after right breast lumpectomy/sentinel lymph node on 02/18/2022. She had evacuation of post op hematoma on 03/07/2022. We reviewedpathology showing Invasive Lobular Carcinoma, [place] histologic score 8/9 (score 3), size 50mm, margins negative for carcinoma, ER 95%, MS 95%, [facility], negative. 2 sentinel lymph nodes negative for involvement by tumor. pT2 pN0 Mx. ----Today we discussed Oncotype Dx testing due to high grade ER+, MS+, Her2 negative cancer. She understands that if [...] in 2 years (03/2024). Next f/u with [employer] as well as Dr. Magana for surveillance. [...] for coordination of care (as documented) and [id number] counseling of patient and/or family. Dictated By: Lisa Hennessy MD DD/ [id number] Signed By: <Electronically signed by MD Lisa Hennessy> 01/01/23 5572 [facility] Work Phone: [phone]) 346-671202-16-2023 Progress note Author Ciera Vitale [facility] September 11, 2022 4:51pm Note Date/Time September 11, 2022 4:47pm [facility] at [address] [address] Hem/Onc Follow Up Note - OP Signed Patient: Denia Al MR#: [id number] : 1960 Acct:[id number] Age/Sex: 62 / F Type: REG RCR [...] daily. OK for 3 month f/u with [employer] and 6 month f/u with me, sooner [...] reviewed pathology results showing Invasive Lobular Carcinoma, [place] histologic score 8/9 (score 3), size 50mm, margins negative for carcinoma, ER 95%, MS 95%, Her2 1+ by IHC, negative. 2 sentinel lymph nodes negative for involvement by tumor. pT2 pN0 Mx. Interestingly, original pathology was invasive ductal carcinoma (lumpectomy final pathology invasive lobular carcinoma). --No residual fullness or pain at surgical site. Discussed Oncotype Dx--will send pathology for testing and followup in 2 weeks. Moderate complexity 35 minute followup visit. 02/07/2022: Phone followup today to discuss [facility] tumor board discussion forplan with Dr. Magana for invasive ductal carcinoma of right breast. I contacted patient today after discussion in [facility] Tumor Board this am. Right axillary [...] ductal carcinoma (provisional grade 2) ER 95%, MS 95%, Her-2 equivocal IHC 1+ with equivocal [...] ovarian or other cancers. I reviewed her [facility] mammography 12/25/21 and ultrasound 01/01/2022 reports. Breast mass is about 3.6cm in greatest dimension on US (3.8 cm on mammogram). US guided breast biopsy on 01/01/2022 revealed invasive ductal carcinoma (provisional grade 2) ER 95%, MS 95%, Her-2 equivocal IHC 1+ with equivocal [...] week, I will discuss her case at [facility] tumor board 02/03/2022 then coordinate phone followup to discuss multidisciplinary planof care. High complexity visit--60 min face to face, 30 min to review outside records and coordinate tumor board discussion of plan. DIAGNOSIS: New diagnosis right upper inner quadrant breast cancer 3.6cm primary by US (clinical T2 Nx Mx) --01/01/2022 biopsy: invasive ductal carcinoma (provisional grade 2) ER 95%, MS 95%, Her-2 equivocal IHC 1+ with equivocal FISH (HER2/CEP 17 1.4; Her2 copy number 4.0). --02/18/2022 lumpectomy with sentinel lymph node biopsy: Invasive Lobular Carcinoma, [place] histologic score 8/9 (score 3), size 50mm, margins negative for carcinoma, ER 95%, MS 95%, Her2 1+ by IHC, negative. 2 [...] Negative for environmental allergies and food allergies. [facility] - Medical History Medical History: Medical History [...] lymph node biopsy now Invasive Lobular Carcinoma, [place] histologic score 8/9 (score 3), size 50mm, margins negative for carcinoma, ER 95%, MS 95%, Her2 1+ by IHC, negative. 2 [...] invasive ductal carcinoma (provisional grade 2)ER 95%, MS 95%, Her-2 equivocal IHC 1+ with equivocal [...] week, I will discuss her case at [facility] tumor board 02/03/2022 then coordinate phone [...] 50mm, margins negative for carcinoma, ER 95%, MS 95%, [facility]. 2 sentinel lymph nodes negative for involvement by tumor. pT2 pN0 Mx. ----Today we discussed Oncotype Dx testing due to high grade ER+, MS+, Her2 negative cancer. She understands that if [...] in 2 years (03/2024). Next f/u with [employer] as well as Dr. Magana for surveillance. [...] for coordination of care (as documented) and [id number] counseling of patient and/or family. Dictated By: Ciera Vitale APRN DD/ 43 Signed By: <Electronically signed by ALEX Vitale> 09/11/221650 [facility] Work Phone: 1(211) 897-318211-23-2022 Progress note Author Kylee Lindsay [facility] June 18, 2022 9:21am Note Date/Time June 18, 2022 8:35am [facility] [place] [address] Rad Onc Follow Up Note - OP Signed Patient: Denia Al MR#: [id number] : 1960 Acct:[id number] Age/Sex: 62 / F Type: REG RCR Copies to: MD David Kay DO Marc Naderer, MD~ Date of Service Service Date: 06/18/22 Assessment & Plan (1) Malignant neoplasm of upper-inner quadrant of right breast in female, estrogen receptor positive Plan: RTC PRN Assessment: 62-year-old female with pT2N0 invasive lobular carcinoma and invasive ductal carcinoma (biopsy) of the upper outer quadrant of the right breast, ER/MS positive HER2 negative. We reviewed her pathology [...] confirmed invasive ductal carcinoma, provisional grade 2, ER/MS positive with HER2 equivocal IHC 1+ with equivocalFISH. HER2 copy #4. Clinical stage T2 NX MX. February 07, 2022 right axillary ultrasound was negative for adenopathy. Since [id number] indeterminate node-negative she was recommended for upfront surgery. January 16, 2022 [facility] testing returned negative February 18, 2022 patient proceeded to right breast lumpectomy with sentinel lymph node biopsy. Final pathology confirmed invasive lobular carcinoma, grade 3, 5 cm in size with margins negative. Closest margin was 0.5 mm anteriorly. There was no LVSI identified. There was associated LCIS. ER/MS +2 sentinel nodes negative for tumor. pT2N0 [...] limits Dictated By: Kylee Lindsay MD DD/ [id number] Signed By: <Electronically signed by Kylee Lindsay MD> 06/18/22 0921 [facility] Work Phone: 1([phone]) 730-192111-16-2022 Progress note Author Lisa Hennessy [facility] June 11, 2022 9:37pm Note Date/Time June 11, 2022 1:19pm [facility] [place] [id number] Hem/Onc Follow Up Note - OP Signed Patient: Denia Al MR#: [id number] : 1960 Acct:[id number] Age/Sex: 62 / F Type: REG RCR Copies to: MD David Kay DO Marc Naderer, MD~ Subjective Date/Time [...] daily. OK for 3 month f/u with [employer] and 6 month f/u with me, sooner [...] reviewed pathology results showing Invasive Lobular Carcinoma, [place] histologic score 8/9 (score 3), size 50mm, margins negative for carcinoma, ER 95%, MS 95%, Her2 1+ by IHC, negative. 2 sentinel lymph nodes negative for involvement by tumor. pT2 pN0 Mx. Interestingly, original pathology was invasive ductal carcinoma (lumpectomy final pathology invasive lobular carcinoma). --No residual fullness or pain at surgical site. Discussed Oncotype Dx--will send pathology for testing and followup in 2 weeks. Moderate complexity 35 minute followup visit. 02/07/2022: Phone followup today to discuss [facility] tumor board discussion forplan with Dr. Magana for invasive ductal carcinoma of right breast. I contacted patient today after discussion in [facility] Tumor Board this am. Right axillary [...] ductal carcinoma (provisional grade 2) ER 95%, MS 95%, Her-2 equivocal IHC 1+ with equivocal [...] ovarian or other cancers. I reviewed her [facility] mammography 12/25/21 and ultrasound 01/01/2022 reports. Breast mass is about 3.6cm in greatest dimension on US (3.8 cm on mammogram). US guided breast biopsy on 01/01/2022 revealed invasive ductal carcinoma (provisional grade 2) ER 95%, MS 95%, Her-2 equivocal IHC 1+ with equivocal [...] week, I will discuss her case at [facility] tumor board 02/03/2022 then coordinate phone followup to discuss multidisciplinary planof care. High complexity visit--60 min face to face, 30 min to review outside records and coordinate tumor board discussion of plan. DIAGNOSIS: New diagnosis right upper inner quadrant breast cancer 3.6cm primary by US (clinical T2 Nx Mx) --01/01/2022 biopsy: invasive ductal carcinoma (provisional grade 2) ER 95%, MS 95%, Her-2 equivocal IHC 1+ with equivocal FISH (HER2/CEP 17 1.4; Her2 copy number 4.0). --02/18/2022 lumpectomy with sentinel lymph node biopsy: Invasive Lobular Carcinoma, [place] histologic score 8/9 (score 3), size 50mm, margins negative for carcinoma, ER 95%, MS 95%, Her2 1+ by IHC, negative. 2 [...] 50mm, margins negative for carcinoma, ER 95%, MS 95%, Her2 1+ by IHC, negative. 2 [...] invasive ductal carcinoma (provisional grade 2)ER 95%, MS 95%, Her-2 equivocal IHC 1+ with equivocal [...] week, I will discuss her case at [facility] tumor board 02/03/2022 then coordinate phone [...] 50mm, margins negative for carcinoma, ER 95%, MS 95%, [facility]. 2 sentinel lymph nodes negative for involvement by tumor. pT2 pN0 Mx. ----Today we discussed Oncotype Dx testing due to high grade ER+, MS+, Her2 negative cancer. She understands that if [...] in 2 years (03/2024). Next f/u with [facility] as well as Dr. Magana for surveillance--moderate [...] and review of surveillance plan 30- minute abgx-og-gdbj visit. - Chemo Plan Chemo Plan (Dose, [...] for coordination of care (as documented) and vqpj-mj-lamb counseling of patient and/or family. Dictated By: Lisa Hennessy MD DD/ [id number] Signed By: <Electronically signed by MD Lisa Hennessy> 06/11/22 9551 [facility] Work Phone: 1(801) 204-387609-15-2022 Consult note Author Kylee Lindsay [facility] April 10, 2022 1:34pm Note Date/Time April 10, 2022 10:31am [facility] [place] [address] Rad Onc Consult Note - OP Signed Patient: Denia Al MR#: [id number] : 1960 Acct:[id number] Age/Sex: 61 / F Type: REG RCR Copies to: MD David Kay DO Marc Naderer, MD~ Assessment & [...] upper outer quadrant of the right breast, ER/MS positive HER2 negative. We reviewed her pathology [...] confirmed invasive ductal carcinoma, provisional grade 2, ER/MS positive with HER2 equivocal IHC 1+ with equivocal FISH. HER2 copy #4. Clinical stage T2 NX MX. February 07, 2022 right axillary ultrasound was negative for adenopathy. Since [id number] indeterminate node-negative she was recommended for upfront surgery. January 16, 2022 [employer] testing returned negative February 18, 2022 patient proceeded to right breast lumpectomy with sentinel lymph node biopsy. Final pathology confirmed invasive lobular carcinoma, grade 3, 5 cm in size with margins negative. Closest margin was 0.5 mm anteriorly. There was no LVSI identified. There was associated LCIS. ER/MS +2 sentinel nodes negative for tumor. pT2N0 repeat HER2 IHC was negative. February 2022 Oncotype score returned 18 with no chemotherapy recommended. Today patient is overall doing well and has recovered from her surgery. She hasno new breast related complaints. She is planned for endocrine therapy. [facility] - Medical History Medical History: Medical History [...] signed by Kylee Lindsay MD> 04/10/22 133[address] [facility] Work Phone: [phone]) 349-241609-07-2022 Progress note Author Lisa Hennessy [facility] April 02, 2022 10:46am Note Date/Time April 02, 2022 8:53am [facility] [place] [address] Hem/Onc Follow Up Note - OP Signed Patient: Denia Al MR#: [id number] : 1960 Acct:[id number] Age/Sex: 61 / F Type: REG RCR Copies to: MD David Kay DO Marc Naderer, MD~ Subjective Date/Time [...] 50mm, margins negative for carcinoma, ER 95%, MS 95%, Her2 1+ by IHC, negative. 2 sentinel lymph nodes negative for involvement by tumor. pT2 pN0 Mx. Interestingly, original pathology was invasive ductal carcinoma (lumpectomy final pathology invasive lobular carcinoma). --No residual fullness or pain at surgical site. Discussed Oncotype Dx--will send pathology for testing and followup in 2 weeks. Moderate complexity 35 minute followup visit. 02/07/2022: Phone followup today to discuss [facility] tumor board discussion forplan with Dr. Magana for invasive ductal carcinoma of right breast. I contacted patient today after discussion in [facility] Tumor Board this am. Right axillary [...] ductal carcinoma (provisional grade 2) ER 95%, MS 95%, Her-2 equivocal IHC 1+ with equivocal [...] ovarian or other cancers. I reviewed her [facility] mammography 12/25/21 and ultrasound 01/01/2022 reports. Breast mass is about 3.6cm in greatest dimension on US (3.8 cm on mammogram). US guided breast biopsy on 01/01/2022 revealed invasive ductal carcinoma (provisional grade 2) ER 95%, MS 95%, Her-2 equivocal IHC 1+ with equivocal [...] week, I will discuss her case at [facility] tumor board 02/03/2022 then coordinate phone followup to discuss multidisciplinary planof care. High complexity visit--60 min face to face, 30 min to review outside records and coordinate tumor board discussion of plan. DIAGNOSIS: New diagnosis right upper inner quadrant breast cancer 3.6cm primary by US (clinical T2 Nx Mx) --01/01/2022 biopsy: invasive ductal carcinoma (provisional grade 2) ER 95%, MS 95%, Her-2 equivocal IHC 1+ with equivocal FISH (HER2/CEP 17 1.4; Her2 copy number 4.0). --02/18/2022 lumpectomy with sentinel lymph node biopsy: Invasive Lobular Carcinoma, [place] histologic score 8/9 (score 3), size 50mm, margins negative for carcinoma, ER 95%, MS 95%, Her2 1+ by IHC, negative. 2 [...] Negative for environmental allergies and food allergies. [facility] - History Attestation statement: The following information was validated with the patient. Source: Old Records Reviewed - Medical History Medical History: Medical History (Last Reviewed 04/02/22 @ 10:37 by Lisa Hennessy MD) Breast cancer current rt Smoker - Surgical History Surgical History: Surgical History (Last Reviewed 04/02/22 @ 10:37 by iLsa Hennessy MD) H/O lumpectomy 01/2022 H/O splenectomy [...] lymph node biopsy now Invasive Lobular Carcinoma, [place] histologic score 8/9 (score 3), size 50mm, margins negative for carcinoma, ER 95%, MS 95%, Her2 1+ by IHC, negative. 2 [...] ductal carcinoma (provisional grade 2) ER 95%, MS 95%, Her-2 equivocal IHC 1+ with equivocal [...] week, I will discuss her case at [facility] tumor board 02/03/2022 then coordinate phone [...] 50mm, margins negative for carcinoma, ER 95%, MS 95%, [facility], [facility]. 2 sentinel lymph nodes negative for involvement by tumor. pT2 pN0 Mx. ----Today we discussed Oncotype Dx testing due to high grade ER+, MS+, Her2 negative cancer. She understands that if [...] and review of adjuvant therapy options 30-minute csnm-of-hyxc visit. - Chemo Plan Chemo Plan (Dose, Rate, Freq): Oncotype Dx testing to determine plan for adjuvant therapy. Goal of Treatment: Curative - Time with Patient Time Spent with Patient (Follow Up Visit): 35 minutes Coordination of Care & Counseling Time: Greater than 50% of time spent with patient was for coordination of care (as documented) and csgk-yu-wuiz counseling of patient and/or family. Dictated By: Lisa Hennessy MD DD/ 0853 Signed By: <Electronically signed by MD Lisa Hennessy> 04/02/22 10[address] [facility] Work Phone: 1(809) 180-298008-21-2022 Progress note Author Lisa Hennessy [facility] March 16, 2022 2:02pm Note Date/Time March 15, 2022 9: 18pm [facility] [place] [address] Hem/Onc Follow Up Note - OP Signed Patient: Denia Al MR#: [id number] : 1960 Acct:[id number] Age/Sex: 61 / F Type: REG RCR [...] on 03/05/2022 and continues followup with Dr. Mgaana. I reviewed pathology results showing Invasive Lobular Carcinoma, [place] histologic score 8/9 (score 3), size 50mm, margins negative for carcinoma, ER 95%, MS 95%, Her2 1+ by IHC, negative. 2 sentinel lymph nodes negative for involvement by tumor. pT2 pN0 Mx. Interestingly, original pathology was invasive ductal carcinoma (lumpectomy final pathology invasive lobular carcinoma). --No residual fullness or pain at surgical site. Discussed Oncotype Dx--will send pathology for testing and followup in 2 weeks. Moderate complexity 35 minute followup visit. 02/07/2022: Phone followup today to discuss [facility] tumor board discussion forplan with Dr. Magana for invasive ductal carcinoma of right breast. I contacted patient today after discussion in [facility] Tumor Board this am. Right axillary [...] ductal carcinoma (provisional grade 2) ER 95%, MS 95%, Her-2 equivocal IHC 1+ with equivocal [...] ovarian or other cancers. I reviewed her [facility] mammography 12/25/21 and ultrasound 01/01/2022 reports. Breast mass is about 3.6cm in greatest dimension on US (3.8 cm on mammogram). US guided breast biopsy on 01/01/2022 revealed invasive ductal carcinoma (provisional grade 2) ER 95%, MS 95%, Her-2 equivocal IHC 1+ with equivocal [...] week, I will discuss her case at [facility] tumor board 02/03/2022 then coordinate phone followup to discuss multidisciplinary planof care. High complexity visit--60 min face to face, 30 min to review outside records and coordinate tumor board discussion of plan. DIAGNOSIS: New diagnosis right upper inner quadrant breast cancer 3.6cm primary by US (clinical T2 Nx Mx) --01/01/2022 biopsy: invasive ductal carcinoma (provisional grade 2) ER 95%, MS 95%, Her-2 equivocal IHC 1+ with equivocal FISH (HER2/CEP 17 1.4; Her2 copy number 4.0). --02/18/2022 lumpectomy with sentinel lymph node biopsy: Invasive Lobular Carcinoma, [place] histologic score 8/9 (score 3), size 50mm, margins negative for carcinoma, ER 95%, MS 95%, Her2 1+ by IHC, negative. 2 [...] lymph node biopsy now Invasive Lobular Carcinoma, [place] histologic score 8/9 (score 3), size 50mm, margins negative for carcinoma, ER 95%, MS 95%, Her2 1+ by IHC, negative. 2 [...] ductal carcinoma (provisional grade 2) ER 95%, MS 95%, Her-2 equivocal IHC 1+ with equivocal [...] week, I will discuss her case at [facility] tumor board 02/03/2022 then coordinate phone [...] 50mm, margins negative for carcinoma, ER 95%, MS 95%, [facility]. 2 sentinel lymph nodes negative for involvement by tumor. pT2 pN0 Mx. ----Today we discussed Oncotype Dx testing due to high grade ER+, MS+, Her2 negative cancer. She understands that if [...] for coordination of care (as documented) and kgty-zy-omsx counseling of patient and/or family. Dictated By: Lisa Hennessy MD DD/ 16 Signed By: <Electronically signed by MD Lisa Hennessy> 03/16/22 140[address] [facility] Work Phone: 1([phone]) 397-529308-21-2022 Progress note Author Lisa Hennessy [facility] March 16, 2022 2:02pm Note Date/Time March 15, 2022 9: 18pm [facility] [place] [id number] Hem/Onc Follow Up Note - OP Signed Patient: Denia Al MR#: [id number] : 1960 Acct:[id number] Age/Sex: 61 / F Type: REG RCR Copies to: David Magana, DO Howard Schumacher MD~ Subjective Date/Time of Service: Date of [...] reviewed pathology results showing Invasive Lobular Carcinoma, [place] histologic score 8/9 (score 3), size 50mm, margins negative for carcinoma, ER 95%, MS 95%, Her2 1+ by IHC, negative. 2 sentinel lymph nodes negative for involvement by tumor. pT2 pN0 Mx. Interestingly, original pathology was invasive ductal carcinoma (lumpectomy final pathology invasive lobular carcinoma). --No residual fullness or pain at surgical site. Discussed Oncotype Dx--will send pathology for testing and followup in 2 weeks. Moderate complexity 35 minute followup visit. 02/07/2022: Phone followup today to discuss [facility] tumor board discussion forplan with Dr. Magana for invasive ductal carcinoma of right breast. I contacted patient today after discussion in [facility] Tumor Board this am. Right axillary [...] ductal carcinoma (provisional grade 2) ER 95%, MS 95%, Her-2 equivocal IHC 1+ with equivocal [...] ovarian or other cancers. I reviewed her [facility] mammography 12/25/21 and ultrasound 01/01/2022 reports. Breast mass is about 3.6cm in greatest dimension on US (3.8 cm on mammogram). US guided breast biopsy on 01/01/2022 revealed invasive ductal carcinoma (provisional grade 2) ER 95%, MS 95%, Her-2 equivocal IHC 1+ with equivocal [...] week, I will discuss her case at [facility] tumor board 02/03/2022 then coordinate phone followup to discuss multidisciplinary planof care. High complexity visit--60 min face to face, 30 min to review outside records and coordinate tumor board discussion of plan. DIAGNOSIS: New diagnosis right upper inner quadrant breast cancer 3.6cm primary by US (clinical T2 Nx Mx) --01/01/2022 biopsy: invasive ductal carcinoma (provisional grade 2) ER 95%, MS 95%, Her-2 equivocal IHC 1+ with equivocal FISH (HER2/CEP 17 1.4; Her2 copy number 4.0). --02/18/2022 lumpectomy with sentinel lymph node biopsy: Invasive Lobular Carcinoma, [place] histologic score 8/9 (score 3), size 50mm, margins negative for carcinoma, ER 95%, MS 95%, Her2 1+ by IHC, negative. 2 [...] 50mm, margins negative for carcinoma, ER 95%, MS 95%, Her2 1+ by IHC, negative. 2 [...] ductal carcinoma (provisional grade 2) ER 95%, MS 95%, Her-2 equivocal IHC 1+ with equivocal [...] week, I will discuss her case at [facility] tumor board 02/03/2022 then coordinate phone followup to discuss multidisciplinary plan of care. High complexity visit--60 min face to face, 30 min to review outside records andcoordinate tumor board discussion of plan. 03/14/2022: Here for followup after right breast lumpectomy/sentinel lymph node on 02/18/2022. She had evacuation of post op hematoma on 03/07/2022. We reviewedpathology showing Invasive Lobular Carcinoma, [place] histologic score 8/9 (score 3), size 50mm, margins negative for carcinoma, ER 95%, MS 95%, [facility]. 2 sentinel lymph nodes negative for involvement by tumor. pT2 pN0 Mx. ----Today we discussed Oncotype Dx testing due to high grade ER+, MS+, Her2 negative cancer. She understands that if [...] for coordination of care (as documented) and ekoe-kt-oacs counseling of patient and/or family. Dictated By: Lisa Hennessy MD DD/ 16 Signed By: <Electronically signed by MD Lisa Hennessy> 03/16/22 4[address] [facility] Work Phone: [phone]) 216-940407-07-2022 Consult note Author Lisa Hennessy [facility] January 30, 2022 9:35am Note Date/Time January 29, 2022 1:35p m [facility] [place] [address] Hem/Onc Consult Note - OP Signed Patient: Denia Al MR#: [id number] : 1960 Acct:[id number] Age/Sex: 61 / F Type: REG RCR Copies to: DO Howard Flores MD~ HPI Date/Time of Service: Date of Service: 01/29/2022 Time of Service: 13:34 Referring Provider/PCP: Referring Provider: Howard Schumacher MD PCP: Howard Schumacher MD - History of Present Illness Reason for Consultation: Palpable right breast mass--biopsy in December 2021 shows invasive ductal carcinoma (provisional grade 2) ER 95%, MS 95%, Her-2 equivocal IHC 1+ with equivocal [...] ovarian or other cancers. I reviewed her [facility] mammography 12/25/21 and ultrasound 01/01/2022 reports. Breast mass is about 3.6cm in greatest dimension on US (3.8 cm on mammogram). US guided breast biopsy on 01/01/2022 revealed invasive ductal carcinoma (provisional grade 2) ER 95%, MS 95%, Her-2 equivocal IHC 1+ with equivocal [...] week, I will discuss her case at [facility] tumor board 02/03/2022 then coordinate phone followup to discuss multidisciplinary planof care. High complexity visit--60 min face to face, 30 min to review outside records and coordinate tumor board discussion of plan. [facility] - History Attestation statement: The following information was validated with the patient. Source: Old Records Reviewed - Surgical History Surgical History: Surgical History (Last Reviewed 01/30/22 @ 09:23 by Lisa Hennsesy MD) H/O splenectomy H/O tubal ligation History [...] ductal carcinoma (provisional grade 2) ER 95%, MS 95%, Her-2 equivocal IHC 1+ with equivocal [...] for review. - Impressions I reviewed her [facility] mammography 12/25/21 and ultrasound 01/01/2022 reports. [...] ductal carcinoma (provisional grade 2) ER 95%, MS 95%, Her-2 equivocal IHC 1+ with equivocal [...] week, I will discuss her case at [facility] tumor board 02/03/2022 then coordinate phone [...] for coordination of care (as documented) and iqdv-mn-acbg counseling of patient and/or family. Dictated By: Lisa Hennessy MD DD/ 1334 Signed By: <Electronically signed by MD Lisa Hennessy> 01/30/22 0951 [facility] Work Phone: Evaluation note* Diagnosis Onset Date Resolution Status [id number] acute [facility] Work Phone: Evaluation note* Diagnosis Onset Date Resolution Status [id number] chronic [facility] Work Phone: Evaluation note* Diagnosis Onset Date Resolution Status Encounter for monitoring aromatase inhibitor therapy chronic [id number] chronic Osteopenia chronic Screening for osteoporosis c [facility] Work Phone: Evaluation note* Diagnosis Onset Date Resolution Status Adnexal mass acute Aromatase inhibitor-associated arthralgia acute Encounter for monitoring aromatase inhibitor therapy chronic [id number] chronic Osteopenia chronic Screening for osteoporosis c [facility] Work Phone: Evaluation noteNo assessment information available [facility] Work Phone: Evaluation note* Diagnosis Onset Date Resolution Status Adnexal mass acute Aromatase inhibitor-associated arthralgia acute Encounter for monitoring aromatase inhibitor therapy chronic [id number] chronic Osteopenia chronic Screening for osteoporosis c [facility] Aromatase inhibitor-associated arthralgia acute History of bilateral salpingo-oophorectomy acute Encounter for monitoring aromatase inhibitor therapy chronic [id number] chronic Osteopenia chronic [facility] Work Phone: Evaluation note* Diagnosis Malignant neoplasm of upper-inner quadrant of right breast in female, estrogen receptor positive (CMS/HCC)- Primary documented in this encounter [facility] HealthcareEvaluation note* Diagnosis Arthralgia, unspecified joint- Primary Encounter for long-term (current) use of medications Encounter for long-term (current) use of other medications Lipid screening Screening for lipoid disorders Obesity (BMI 30-39.9) Chronic right shoulder pain- Primary Pain in joint, shoulder region Abscess, toe, left- Primary Onychocryptosis Ingrowing nail Toe pain, left Pain in soft tissues of limb documented in this encounter [facility] HealthcareEvaluation note* Diagnosis Arthralgia, unspecified joint- Primary [...] and unspecified hyperlipidemia documented in this encounter [facility] HealthcareEvaluation note* Diagnosis Arthralgia, unspecified joint- Primary [...] Abscess, toe, left documented in this encounter [facility] HealthcareEvaluation note* Diagnosis Onset Date Resolution Status Admit Date Adnexal mass acute July 9:13am Aromatase inhibitor-associat ed arthralgia acute August 22 9:13am Encounter for monitoring aromatase inhibitor therapy chronic Elton martín 2024 9:13am Malignant neoplasm of upper-inner quadrant of right breast in female, estro chronic August 22, 2024 9:13am Osteopenia chronic August 22, 2024 9:13am Screening for osteoporosis chronic August 22, 2024 9:13am Aromatase inhibitor-associat ed arthralgia acute August 22 9:13am History of bilateral salpingo-oophorectomy acute August 222024 9:13am Encounter for monitoring aromatase inhibitor therapy chronic Elton martín 2024 9:13am Malignant neoplasm of upper-inner quadrant of right breast in female, estro chronic August 22, 2024 9:13am Osteopenia chronic August 22, 2024 9:13am [facility] Work Phone: Evaluation note* Diagnosis Arthralgia, unspecified joint- Primary Encounter [...] medications Dyslipidemia (CMS/HCC) Other and unspecified hyperlipidemia Elevated liver function tests- Primary Other abnormal blood chemistry documented in this encounter [facility] Present [facility] N[facility]ative* David Magana, - 04/01/2024 10:15 AM EDT Images from [...] low risk for fall Breast cancer (CMS/HCC) [facility] ER/MS + Her2 neg Genetic testing negative Measles [...] m Physical Exam Exam conducted with a translation director present. HENT: Head: Normocephalic. Cardiovascular: Rate and [...] 6 months for recheck [facility] Work Phone: Progress note Author Lisa Hennessy [facility] March 16, 2022 2:02pm Note Date/Time March 15, 2022 9: 18pm [facility] [place] [address] Hem/Onc Follow Up Note - OP Signed Patient: Denia Al MR#: [id number] : 1960 Acct:[id number] Age/Sex: 61 / F Type: REG RCR [...] 50mm, margins negative for carcinoma, ER 95%, MS 95%, Her2 1+ by IHC, negative. 2 sentinel lymph nodes negative for involvement by tumor. pT2 pN0 Mx. Interestingly, original pathology was invasive ductal carcinoma (lumpectomy final pathology invasive lobular carcinoma). --No residual fullness or pain at surgical site. Discussed Oncotype Dx--will send pathology for testing and followup in 2 weeks. Moderate complexity 35 minute followup visit. 02/07/2022: Phone followup today to discuss [facility] tumor board discussion forplan with Dr. Magana for invasive ductal carcinoma of right breast. I contacted patient today after discussion in [facility] Tumor Board this am. Right axillary [...] ductal carcinoma (provisional grade 2) ER 95%, MS 95%, Her-2 equivocal IHC 1+ with equivocal [...] ovarian or other cancers. I reviewed her [facility] mammography 12/25/21 and ultrasound 01/01/2022 reports. Breast mass is about 3.6cm in greatest dimension on US (3.8 cm on mammogram). US guided breast biopsy on 01/01/2022 revealed invasive ductal carcinoma (provisional grade 2) ER 95%, MS 95%, Her-2 equivocal IHC 1+ with equivocal [...] week, I will discuss her case at [facility] tumor board 02/03/2022 then coordinate phone followup to discuss multidisciplinary planof care. High complexity visit--60 min face to face, 30 min to review outside records and coordinate tumor board discussion of plan. DIAGNOSIS: New diagnosis right upper inner quadrant breast cancer 3.6cm primary by US (clinical T2 Nx Mx) --01/01/2022 biopsy: invasive ductal carcinoma (provisional grade 2) ER 95%, MS 95%, Her-2 equivocal IHC 1+ with equivocal FISH (HER2/CEP 17 1.4; Her2 copy number 4.0). --02/18/2022 lumpectomy with sentinel lymph node biopsy: Invasive Lobular Carcinoma, [place] histologic score 8/9 (score 3), size 50mm, margins negative for carcinoma, ER 95%, MS 95%, Her2 1+ by IHC, negative. 2 [...] 50mm, margins negative for carcinoma, ER 95%, MS 95%, Her2 1+ by IHC, negative. 2 [...] ductal carcinoma (provisional grade 2) ER 95%, MS 95%, Her-2 equivocal IHC 1+ with equivocal [...] week, I will discuss her case at [facility] tumor board 02/03/2022 then coordinate phone [...] 50mm, margins negative for carcinoma, ER 95%, MS 95%, Her2 1+ byIHC, negative. 2 sentinel lymph nodes negative for involvement by tumor. pT2 pN0 Mx. ----Today we discussed Oncotype Dx testing due to high grade ER+, MS+, Her2 negative cancer. She understands that if [...] for coordination of care (as documented) and vxbs-lg-ortj counseling of patient and/or family. Dictated By: Lisa Hennessy MD DD/ 16 Signed By: <Electronically signed by MD Lisa Hennessy> 03/16/22 1402 [facility] Work Phone: Progress note Author Kylee [facility] June 18, 2022 9:21am Note Date/Time June 18, 2022 8:35am [facility] [place] [address] Rad Onc Follow Up Note - OP Signed Patient: Denai Al MR#: [id number] : 1960 Acct:[id number] Age/Sex: 62 / F Type: REG RCR Copies to: MD David Kay DO Marc Naderer, MD~ Date of Service Service Date: 06/18/22 Assessment & Plan (1) Malignant neoplasm of upper-inner quadrant of right breast in female, estrogen receptor positive Plan: RTC PRN Assessment: 62-year-old female with pT2N0 invasive lobular carcinoma and invasive ductal carcinoma (biopsy) of the upper outer quadrant of the right breast, ER/MS positive HER2 negative. We reviewed her pathology [...] confirmed invasive ductal carcinoma, provisional grade 2, ER/MS positive with HER2 equivocal IHC 1+ with equivocalFISH. HER2 copy #4. Clinical stage T2 NX MX. February 07, 2022 right axillary ultrasound was negative for adenopathy. Since [id number] indeterminate node-negative she was recommended for upfront surgery. January 16, 2022 [facility] testing returned negative February 18, 2022 patient proceeded to right breast lumpectomy with sentinel lymph node biopsy. Final pathology confirmed invasive lobular carcinoma, grade 3, 5 cm in size with margins negative. Closest margin was 0.5 mm anteriorly. There was no LVSI identified. There was associated LCIS. ER/MS +2 sentinel nodes negative for tumor. pT2N0 [...] limits Dictated By: Kylee Lindsay MD DD/ [id number] Signed By: <Electronically signed by Kylee Lindsay MD> 06/18/22 0921 [facility] Work Phone: Progress note Author Ciera Vitale [facility] March 12, 2023 2:09pm Note Date/Time March 12, 2023 1: 58pm [facility] [place] [id number] Hem/Onc Follow Up Note - OP Signed Patient: Denia Al MR#: [id number] : 1960 Acct:[id number] Age/Sex: 62 / F Type: REG RCR [...] 13 cm. She was urgently transferred to [facility] and underwent total hysterectomy, bilateral [...] daily. OK for 3 month f/u with [employer] and 6 month f/u with me, sooner [...] 50mm, margins negative for carcinoma, ER 95%, MS 95%, Her2 1+ by IHC, negative. 2 sentinel lymph nodes negative for involvement by tumor. pT2 pN0 Mx. Interestingly, original pathology was invasive ductal carcinoma (lumpectomy final pathology invasive lobular carcinoma). --No residual fullness or pain at surgical site. Discussed Oncotype Dx--will send pathology for testing and followup in 2 weeks. Moderate complexity 35 minute followup visit. 02/07/2022: Phone followup today to discuss [facility] tumor board discussion forplan with Dr. Magana for invasive ductal carcinoma of right breast. I contacted patient today after discussion in [facility] Tumor Board this am. Right axillary [...] ductal carcinoma (provisional grade 2) ER 95%, MS 95%, Her-2 equivocal IHC 1+ with equivocal [...] ovarian or other cancers. I reviewed her [facility] mammography 12/25/21 and ultrasound 01/01/2022 reports. Breast mass is about 3.6cm in greatest dimension on US (3.8 cm on mammogram). US guided breast biopsy on 01/01/2022 revealed invasive ductal carcinoma (provisional grade 2) ER 95%, MS 95%, Her-2 equivocal IHC 1+ with equivocal [...] week, I will discuss her case at [facility] tumor board 02/03/2022 then coordinate phone followup to discuss multidisciplinary planof care. DIAGNOSIS: New diagnosis right upper inner quadrant breast cancer 3.6cm primary by US (clinical T2 Nx Mx) --01/01/2022 biopsy: invasive ductal carcinoma (provisional grade 2) ER 95%, MS 95%, Her-2 equivocal IHC 1+ with equivocal FISH (HER2/CEP 17 1.4; Her2 copy number 4.0). --02/18/2022 lumpectomy with sentinel lymph node biopsy: Invasive Lobular Carcinoma, [place] histologic score 8/9 (score 3), size 50mm, margins negative for carcinoma, ER 95%, MS 95%, Her2 1+ by IHC, negative. 2 [...] Negative for environmental allergies and food allergies. [facility] - Medical History Medical History: Medical History [...] lymph node biopsy now Invasive Lobular Carcinoma, [place] histologic score 8/9 (score 3), size 50mm, margins negative for carcinoma, ER 95%, MS 95%, Her2 1+ by IHC, negative. 2 [...] invasive ductal carcinoma (provisional grade 2)ER 95%, MS 95%, Her-2 equivocal IHC 1+ with equivocal [...] week, I will discuss her case at [facility] tumor board 02/03/2022 then coordinate phone [...] 50mm, margins negative for carcinoma, ER 95%, MS 95%, [facility]. 2 sentinel lymph nodes negative for involvement by tumor. pT2 pN0 Mx. ----Today we discussed Oncotype Dx testing due to high grade ER+, MS+, Her2 negative cancer. She understands that if [...] in 2 years (03/2024). Next f/u with [facility] [facility] as well as Dr. Magana for surveillance. [...] 13 cm. She was urgently transferred to [facility] and underwent total hysterectomy, bilateral [...] and [facility] Pathology returned consistent with benign, [...] and bilateral salpingo[facility]ophorectomy [facility] 01/21/2023 at [facility]. Pathology returned consistent with benign, [...] for coordination of care (as documented) and [id number] counseling of patient and/or family. Dictated By: Ciera Vitale APRN DD/ [id number] Signed By: <Electronically signed by ALEX Vitale> 03/12/23 1401 [facility] Work Phone: Progress note Author Ciera Vitale [facility] April 16, 2023 12:52pm Note Date/Time April 16, 2023 12:44pm [facility] [place] [address] Hem/Onc Follow Up Note - OP Signed Patient: Denia Al MR#: [id number] : 1960 Acct:[id number] Age/Sex: 62 / F Type: REG RCR [...] She had follow up CT scan of [facility] abdomen/pelvis done at [facility] yesterday. This was done to evaluate her post operatively after large, non malignant adnexal mass was removed on 01/21/2023 at [facility]. Denies weight loss, lymphadenopathy, chest pain, SOB, [...] 13 cm. She was urgently transferred to [facility] and underwent total hysterectomy, bilateral [...] daily. OK for 3 month f/u with [employer] and 6 month f/u with me, sooner [...] reviewed pathology results showing Invasive Lobular Carcinoma, [place] histologic score 8/9 (score 3), size 50mm, margins negative for carcinoma, ER 95%, MS 95%, Her2 1+ by IHC, negative. 2 sentinel lymph nodes negative for involvement by tumor. pT2 pN0 Mx. Interestingly, original pathology was invasive ductal carcinoma (lumpectomy final pathology invasive lobular carcinoma). --No residual fullness or pain at surgical site. Discussed Oncotype Dx--will send pathology for testing and followup in 2 weeks. Moderate complexity 35 minute followup visit. 02/07/2022: Phone followup today to discuss [facility] tumor board discussion forplan with Dr. Magana for invasive ductal carcinoma of right breast. I contacted patient today after discussion in [facility] Tumor Board this am. Right axillary [...] ductal carcinoma (provisional grade 2) ER 95%, MS 95%, Her-2 equivocal IHC 1+ with equivocal [...] ovarian or other cancers. I reviewed her [facility] mammography 12/25/21 and ultrasound 01/01/2022 reports. Breast mass is about 3.6cm in greatest dimension on US (3.8 cm on mammogram). US guided breast biopsy on 01/01/2022 revealed invasive ductal carcinoma (provisional grade 2) ER 95%, MS 95%, Her-2 equivocal IHC 1+ with equivocal [...] week, I will discuss her case at [facility] tumor board 02/03/2022 then coordinate phone followup to discuss multidisciplinary planof care. DIAGNOSIS: New diagnosis right upper inner quadrant breast cancer 3.6cm primary by US (clinical T2 Nx Mx) --01/01/2022 biopsy: invasive ductal carcinoma (provisional grade 2) ER 95%, MS 95%, Her-2 equivocal IHC 1+ with equivocal FISH (HER2/CEP 17 1.4; Her2 copy number 4.0). --02/18/2022 lumpectomy with sentinel lymph node biopsy: Invasive Lobular Carcinoma, [place] histologic score 8/9 (score 3), size 50mm, margins negative for carcinoma, ER 95%, MS 95%, Her2 1+ by IHC, negative. 2 [...] Negative for environmental allergies and food allergies. [facility] - Medical History Medical History: Medical History [...] 50mm, margins negative for carcinoma, ER 95%, MS 95%, Her2 1+ by IHC, negative. 2 [...] invasive ductal carcinoma (provisional grade 2)ER 95%, MS 95%, Her-2 equivocal IHC 1+ with equivocal [...] week, I will discuss her case at [facility] tumor board 02/03/2022 then coordinate phone [...] 50mm, margins negative for carcinoma, ER 95%, MS 95%, [facility]. 2 sentinel lymph nodes negative for involvement by tumor. pT2 pN0 Mx. ----Today we discussed Oncotype Dx testing due to high grade ER+, MS+, Her2 negative cancer. She understands that if [...] in 2 years (03/2024). Next f/u with [employer] as well as Dr. Magana for surveillance. [...] 13 cm. She was urgently transferred to [facility] and underwent total hysterectomy, bilateral [...] CT scan of the abdomen/pelvis done at [facility] yesterday. This was done to evaluate her post operatively after large, non malignant adnexal mass was removed on 01/21/2023 at [facility]. She was told her CT scan showed [...] and bilateral [facility]. Pathology returned consistent with benign, [...] and bilateral salpingo[facility]oophorectomy on 01/21/2023 at [facility]. Pathology returned consistent with benign, [...] for coordination of care (as documented) and [id number] counseling of patient and/or family. Dictated By: Ciera Vitale APRN DD/ [id number] Signed By: <Electronically signed by ALEX Vitale> 04/16/23 125 [facility] Work Phone: Chief Complaint and Reason for Visit Chief Complaint Invasive ductal carc daria right breast Right Breast Cacner Right Breast Cacner Reason for Visit [id number] Chief Complaint Right Breast Cacner Right Breast Cacner Right Breast Cacner hematoma right breast hematoma right breast Invasive ductal carcima right breast Reason for Visit [id number] Chief Complaint Invasive ductal carc daria right breast Reason for Visit Encounter for monito ring aromatase inhibitor therapy [id number] Osteopenia Screening for osteoporosis Chief Complaint Invasive ductal carc daria right breast Reason for Visit Adnexal mass Aromatase inhibitor-associated arthralgia Encounter for monitoring aromatase inhibitor therapy [id number] Osteopenia Screening for osteoporosis Chief Complaint Invasive ductal carc daria right breast Follow UP Reason for Visit Adnexal mass Aromatase inhibitor-associated arthralgia Encounter for monitoring aromatase inhibitor therapy [id number] Osteopenia Screening for osteoporosis Aromatase inhibitor-associated arthralgia History of bilateral salpingo-oophorectomy Encounter for monitoring aromatase inhibitor therapy [id number] Osteopenia Chief Complaint Admit Date Follow Up [...] my August 22, 2024 9:13am Family History Relationship Condition Age at Onset Recorded Date/T colin father Malignant neoplasm of liver Unknown Diabetes mellitus Unknown Not Specified Hypertension Unknown Heart disease Unknown sister Diabetes mellitus Unknown Relationship Condition Age at Onset Recorded Date/T colin father Malignant neoplasm of liver Unknown Diabetes mellitus Unknown mother Hypertension Unknown Heart disease Unknown sister Diabetes mellitus Unknown Advance Directives Advance Directive Response Recorded Date/ Time Advance Directives No January 21 8:37am Advance Directive Response Recorded Date/ Time [...] Howard Schumacher MD Primary Care Provider Active David Magana DO Attending Provider Active Team Status: Active Member Role Status Dates Lisa Hennessy MD Attending Provider Active Howard Schumacher MD Primary Care Provider, Referring Pro vider Active Team Status: Active Member Role Status Dates Lsia Hennessy MD Attending Provider, Referring Provider Active [...] February 11, 2024 End: February 11, 2024 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 Relationship Specialty Start Date End Date Howard Schumacher MD [address] [place] [address] PCP - General Family Medicine 09/23/23 Ciera Vitale NP [address] [place] [id number] PCP - [facility] 10/26/23 Howard Schumacher MD [address] [place] [phone] PCP - [facility] 03/27/24 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 Relationship Specialty Start Date End Date Howard Schumacher MD [address] [place] [phone] PCP - General Family Medicine 09/23/23 Howard Schumacher MD [address] [place] [phone] PCP - [facility] 03/27/24 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 Relationship Specialty Start Date End Date Howard Schumacher MD [address] [place] [phone] PCP - General Family Medicine 09/23/23 Howard Schumacher MD [address] [place] [phone] PCP - [facility] 03/27/24 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 Relationship Specialty Start Date End Date Howard Schumacher MD [address] [place] [phone] PCP - General Family Medicine 09/23/23 Howard Schumacher MD [address] [place] [phone] PCP - [facility] 03/27/24 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 Relationship Specialty Start Date End Date Howard Schumacher MD [address] [place] [phone] PCP - General Family Medicine 09/23/23 Howard Schumacher MD [address] [place] [phone] PCP - [facility] 03/27/24 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 Relationship Specialty Start Date End Date Howard Schumacher MD [address] [place] [phone] PCP - [facility] 09/23/23 Howard Schumacher MD [address] [place] [phone] PCP - [facility] 03/27/24 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 Relationship Specialty Start Date End Date Howard Schumacher MD [address] [place] [address] PCP - [facility] 09/23/23 Howard Schumacher MD [address] [place] [address] PCP - [facility] 03/27/24 Goals (unrecognized [...] and content) DATE CREATED AUTHOR 05/22/2022 [facility] DATE CREATED AUTHOR AUTHOR'S ORGANIZ ATION 08/14/2024 [facility] EPIC DATE CREATED AUTHOR AUTHOR'S ORGANIZ ATION 08/22/2024 The [facility] Reason for Visit (unrecogniz [...] BE BASED ON THE PRIMARY CLINICAL RECORDS. [facility], [facility]. provides no warranty or guarantee of the accuracy or completeness of information in this document.
== END 2024-09-26 08:10 | disposition home or self-care (01) ==
LOC: US 08:09
PROVIDERS: PCP Family Medicine; Visit Provider Family Medicine
DX: R79.89 Other specified abnormal findings of blood chemistry (principal); D17.71 Benign lipomatous neoplasm of kidney
CPT/HCPCS: 76705

== ENCOUNTER 2024-12-20 15:26 | Emergency (ER) | payer OTHER, SELFPAY ==
[2024-12-20] VITALS (18 sets, daily range): BP systolic 167–212; BP diastolic 83–102; PULSE 58–80; TEMP 36.8; O2SAT 86–100; BMI 27.0
--- NOTE | 2024-12-20 16:03 | XR_ITS ---
The [address] [address] Patient Name: ZUNILDA ARIAS MRN: [id number] date: 1960 Sex: F Assigned Patient Location: ER Current Patient Location: ER Accession/Order Number: [id number] Exam Date: 12/20/2024 16:42 Report Date: 12/20/2024 16:43 At the request of: CASSIUS CORONEL MD Procedure: XR chest 1V XR chest 1V 12/20/2024 4:34 PM SIGNS AND SYMPTOMS: ^Hypertension, dizzy ^Y PROTOCOL: Frontal radiograph of the chest COMPARISON: None FINDINGS: The trachea is midline. The heart and mediastinal structures are within normal limits. The lung parenchyma is clear. The bony thorax is intact. Degenerative changes are noted in the shoulders and thoracic spine. Surgical clips are noted along the right chest wall. XR/XR chest 1V IMPRESSION: No acute cardiopulmonary pathology. Impression dictated by: Basil Stephens M.D. 12/20/2024 4:43 PM Dictation Location: [employer] Electronically authenticated by: [id number] Y Date: 12/20/2024 16:43
--- NOTE | 2024-12-20 16:03 | ECG_ITS ---
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 Measurements Intervals Center Rate: 64 P: 34 [place]: 148 QRS: 77 QRSD: 90 T: 74 QT: 416 QTc: 426 Interpretive Statements 1100 Sinus rhythm 9110 normal ECG No previous ECG available for comparison Electronically Signed On 12-20-2024 19:38:30 EDT by DONN SOLIMAN M.D.
--- NOTE | 2024-12-20 16:09 | ED.GENADUL1 ---
HPI HPI - General Adult General Chief complaint: Dizziness Stated complaint: HIGH BP, DIZZY, CLAMMY, VOMITING Time Seen by Provider: 12/20/24 15:30 Source: patient Mode of arrival: Wheelchair History of Present Illness HPI narrative: 64-year-old female presents to the emergency department for dizziness and elevated blood pressure. She states it began this morning. She had her blood pressure checked about 4 months ago and it was fine at her doctor's office. She checked at home and it was elevated. She does not complain to me of chest pain or back pain. She is not short of breath and has not had a fever. Her daughter tells me the patient's , her own father, about a month ago. Related Data Home Medications ?Medication ?Instructions ?Recorded ?Confirmed anastrozole 1 mg tablet mg 12/20/24 meloxicam 15 mg tablet mg 12/20/24 Previous Rx's ?Medication ?Instructions ?Recorded amlodipine 2.5 mg tablet (Norvasc) 2.5 mg PO DAILY #20 tabs 12/20/24 Allergies Allergy/AdvReac Type Severity Reaction Status Date / Time Penicillins Allergy Intermediate Seizure Verified 12/20/24 15:50 Opioid HPI Opioid Management Most Recent Opioid Data: Last Pain Scale 8 Today, 15:41 Review of Systems ROS Narrative A ten point review of systems is negative except as noted above. PFSH PFSH Social History Smoking status: Former smoker Little interest or pleasure in doing things: not at all Feeling down, depressed, or hopeless: not at all Exam Narrative Exam Narrative: Nurses note and vital signs reviewed and patient is not hypoxic. General: The patient appears well and in no apparent distress. Patient is resting comfortably on cart. Skin: Warm, dry, no pallor noted. There is no rash noted. Head: Normocephalic, atraumatic Eye: Normal conjunctiva, no drainage Ears, Nose, Mouth, and Throat: oral mucosa is moist. Nares patent. Cardiovascular: Regular Rate and Rhythm Respiratory: Patient is in no distress, no accessory muscle use, lungs are clear to auscultation, no wheezing, rales or rhonchi Back: non-tender GI: Soft and nontender Musculoskeletal: The patient has no evidence of calf tenderness, no pitting edema, symmetrical pulses noted bilaterally Neurological: A&O, normal speech Psychiatric: Cooperative, appears anxious Constitutional Vital Signs, click to edit/add: Last Vital Signs Temp 98.3 F 12/20/24 15:41 Pulse 74 12/20/24 17:45 Resp 20 12/20/24 17:45 BP 167/83 H 12/20/24 17:45 Pulse Ox 98 12/20/24 17:45 O2 Del Method Room Air 12/20/24 15:41 Course Vital Signs Vital signs: Vital Signs Temperature 98.3 F 12/20/24 15:41 Pulse Rate 62 12/20/24 15:41 Respiratory Rate 16 12/20/24 15:41 Blood Pressure 200/93 H 12/20/24 15:41 Pulse Oximetry 99 12/20/24 15:41 Oxygen Delivery Method Room Air 12/20/24 15:41 Temperature 98.3 F 12/20/24 15:41 Pulse Rate 74 12/20/24 17:45 Respiratory Rate 20 12/20/24 17:45 Blood Pressure 167/83 H 12/20/24 17:45 Pulse Oximetry 98 12/20/24 17:45 Oxygen Delivery Method Room Air 12/20/24 15:41 Medical Decision Making MDM Narrative Medical decision making narrative: The patient's blood pressure was persistently high and she was given 10 mg of IV hydralazine. Subsequently her blood pressure came down appropriately and she is discharged home on 2.5 mg of Norvasc daily. She will follow-up promptly with her PCP. I suspect that stress may be playing a role in her elevated blood pressure and the patient and her daughter agree. The patient's last month. Treatment diagnosis and follow-up were discussed with the patient. Differential Diagnosis Differential Diagnosis: Essential hypertension, anxiety, acute kidney Lab Data Lab results reviewed: Yes I reviewed the patient's lab results Labs: Lab Results 12/20/24 Range/Units 16:12 WBC 6.1 (4.0-11.0) 10^3/uL RBC 4.15 L (4.20-5.40) 10^6/uL Hgb 14.1 (12.0-16.0) g/dL Hct 40.2 (36.0-48.0) % MCV 96.9 (81.0-99.0) fL MCH 34.0 (26.7-34.0) pg MCHC 35.1 (29.9-35.2) g/dL RDW 12.9 (11.0-15.0) % Plt Count 392 (150-450) 10^3/uL MPV 9.3 L (9.5-13.5) fL Neut % (Auto) 57.8 (43.0-75.0) % Lymph % (Auto) 24.5 (20.5-60.0) % Garvin % (Auto) 13.7 H (1.7-12.0) % Eos % (Auto) 2.1 (0.9-7.0) % Baso % (Auto) 1.6 (0.2-2.0) % Neut # (Auto) 3.5 (1.4-6.5) 10^3/uL Lymph # (Auto) 1.5 (1.2-3.8) 10^3/uL Garvin # (Auto) 0.8 (0.3-0.8) 10^3/uL Eos # (Auto) 0.1 (0.0-0.7) 10^3/uL Baso # (Auto) 0.1 (0.0-0.1) 10^3/uL Abs Immat Gran (auto) 0.02 (0.00-0.03) 10^3/uL Imm/Tot Granulo (auto) 0.3 (0.0-0.5) % Sodium 144 (136-145) mmol/L Potassium 3.5 (3.5-5.1) mmol/L Chloride 107 (98-107) mmol/L Carbon Dioxide 25.7 (21.0-32.0) mmol/L Anion Gap 14.8 BUN 7.0 (7.0-18.0) mg/dL Creatinine 0.58 (0.55-1.02) mg/dL Est GFR ( Amer) >60 (>=60 mL/min/1.73m^2) Est GFR (Non-Af Amer) >60 (>=60 mL/min/1.73m^2) BUN/Creatinine Ratio 12.1 Glucose 100 (74-106) mg/dL Calcium 9.4 (8.5-10.1) mg/dL Troponin I High Sens 6.7 (4.0-51.3) pg/mL Imaging Data Chest x-ray: Radiologist's impression: ITS Impressions Chest X-Ray 12/20/24 16:03 IMPRESSION: No acute cardiopulmonary pathology. Impression dictated by: Basil Stephens M.D. 12/20/2024 4:43 PM Dictation Location: [place] [address] Electronically authenticated by: [id number] Y Date: 12/20/2024 16:43 ECG Data Attestation: I personally reviewed and interpreted this ECG as follows: (EKG on my interpretation shows sinus rhythm with rate of 64 no acute) Critical Care Time Critical Care Time Critical Care Time: Yes Total Critical Care Time: 35 Attestation: Due to the high probability of sudden and clinically significant deterioration in the patient's condition he/she required the highest level of my preparedness to intervene urgently I provided critical care time including documentation time, medication orders and management, reevaluation, vital sign assessment, ordering and reviewing of lab tests, ordering and reviewing of x-ray studies, and admission orders. Aggregate critical care time is 35 minutes including only time during which I was engaged in work directly related to his/her care and did not include time spent treating other patients simultaneously. Discharge Plan Discharge Chief Complaint: Dizziness Clinical Impression: Essential hypertension Patient Disposition: Home, Self-Care Time of Disposition Decision: 17:48 Condition: Good Mode of Transportation: Private Vehicle Prescriptions / Home Meds: New amlodipine [Norvasc] 2.5 mg tablet 2.5 mg PO DAILY Qty: 20 0RF No Action anastrozole 1 mg tablet meloxicam 15 mg tablet Print Language: Citizen Of [place] Instructions: Low-Sodium Diet (ED), Hypertension (ED) Referrals: Howard Medrano MD [Primary Care Provider, Family Practice] - 1 week
[2024-12-20 16:23] LABS: Basophils Absolute Auto 0.1 10^3/uL (0.0-0.1); Basophils Percent Auto 1.6 % (0.2-2.0); Eosinophils Absolute Auto 0.1 10^3/uL (0.0-0.7); Eosinophils Percent Auto 2.1 % (0.9-7.0); Hematocrit 40.2 % (36.0-48.0); Hemoglobin 14.1 g/dL (12.0-16.0); Immature Granulocytes Abs Auto 0.02 10^3/uL (0.00-0.03); Immature Granulocytes Pct Auto 0.3 % (0.0-0.5); Lymphocytes Absolute Auto 1.5 10^3/uL (1.2-3.8); Lymphocytes Percent Auto 24.5 % (20.5-60.0); Mean Corpuscular HGB Conc 35.1 g/dL (29.9-35.2); Mean Corpuscular Volume 96.9 fL (81.0-99.0); Mean Platelet Volume 9.3 fL (9.5-13.5); Monocytes Absolute Auto 0.8 10^3/uL (0.3-0.8); Monocytes Percent Auto 13.7 % (1.7-12.0); Neutrophils Absolute Auto 3.5 10^3/uL (1.4-6.5); Neutrophils Percent Auto 57.8 % (43.0-75.0); Platelet Count 392 10^3/uL (150-450); Red Blood Count 4.15 10^6/uL (4.20-5.40); Red Cell Distribution Width 12.9 % (11.0-15.0); White Blood Count 6.1 10^3/uL (4.0-11.0)
[2024-12-20 16:41] LABS: Anion Gap 14.8; BUN Creatinine Ratio 12.1; Calcium 9.4 mg/dL (8.5-10.1); Carbon Dioxide 25.7 mmol/L (21.0-32.0); Chloride 107 mmol/L (98-107); Estimated GFR (African America >60 (>=60 mL/min/1.73m^2); Estimated GFR (Non-African Ame >60 (>=60 mL/min/1.73m^2); Glucose 100 mg/dL (74-106); Potassium 3.5 mmol/L (3.5-5.1); Sodium 144 mmol/L (136-145); Troponin I High Sensitivity 6.7 pg/mL (4.0-51.3)
[2024-12-20] MEDS: HYDRALAZINE HCL 20 MG/ML VIAL 10 MG IVP (16:53)
== END 2024-12-20 18:04 | disposition home or self-care (01) ==
PROVIDERS: Emergency Provider Emergency Medicine; PCP Family Medicine
DX: I10 Essential (primary) hypertension (principal); Z63.4 Disappearance and death of family member; Z87.891 Personal history of nicotine dependence
CPT/HCPCS: 36415; 71045; 80048; 84484; 85025; 93005; 96374; 99285; J0360

== ENCOUNTER 2025-01-09 07:47 | Outpatient (OUT) | payer OTHER, SELFPAY ==
--- NOTE | 2025-01-09 08:00 | CA_ITS ---
Patient Name: ZUNILDA ARIAS MR#: [id number] : 1960 Exam Date: 01/09/2025 Ordering Doctor: DR VENKATA HALE M.D. ECHOCARDIOGRAM REPORT PROCEDURE: CA ECHO DOPPLER COMPLETE INDICATIONS: Hypertensive urgency, chest pain COMPARISON: None. DESCRIPTION: COMPLETE ECHOCARDIOGRAM Real-time transthoracic echocardiography with 2D, M-mode, spectral and color flow Doppler performed. QUALITY: Technical quality was good. LEFT VENTRICLE: Normal chamber size. Normal left ventricular wall thickness. Normal systolic function. LV EF: Estimated left ventricular ejection fraction is 65-70%. Normal left ventricular ejection fraction, (>55%). DIASTOLIC: Diastolic function is indeterminate. ATRIAL SEPTUM: Visually appears intact. LEFT ATRIUM: Severe dilatation. RIGHT ATRIUM: Moderate dilatation. RIGHT VENTRICLE: Mild dilatation. Normal right ventricular systolic function. TRICUSPID VALVE: Normal mobility and thickness. No stenosis with mild regurgitation. Doppler studies reveal mildly (35-45) elevated right sided pressures. RVSP 44 mmHg MITRAL VALVE: Normal mobility and thickness. No evidence of mitral valve stenosis. There is no mitral annular calcification. Mild to moderate mitral regurgitation. AORTIC VALVE: Normal trileaflet appearance. No visible sclerosis. Normal leaflet mobility. No evidence of aortic valve stenosis. No aortic regurgitation. AORTIC ROOT: Normal diameter and appearance, measuring 2.8 cm. Ascending aorta is normal in size, measuring 2.6 cm. PULMONIC VALVE: Normal thickness and mobility. No stenosis. Trivial regurgitation. PERICARDIUM: No evidence of pericardial effusion. IVC: Collapses with inspiration. IVC is normal in size. PLEURA: CONCLUSION: 1. Normal left ventricular size and systolic function. Estimated LVEF is 65 to 70%. 2. Mildly dilated right ventricle with normal systolic function. 3. Moderate to severe biatrial dilatation. 4. Mild to moderate mitral regurgitation. 5. Mild tricuspid regurgitation. 6. Mildly elevated right-sided pressures. RVSP is 44 mmHg. Adult Echocardiography Procedure Report Left Ventricle LVEDD (3.7 - 5.6 cm): 5.03 cm LVESD (2.2 - 4.0 cm): 3.14 cm LVIVS thickness (0.6 - 1.2 cm): 1.00 cm LVPW thickness (0.5 - 1.0 cm): 0.97 cm e': 0.10 m/s E - e': 10.65 LVOT Max Gradient: 3.92 mm[Hg] LVOT Area (cm2): 0.99 m/s Peak Velocity (LVOT): 0.99 m/s Mean Velocity (LVOT): 0.63 m/s LVOT Diameter 1.98 cm Left Atrium LA Volume Index (2D A2C): 48.59 ml/m2 Left Atrium Systolic Dimension: 4.65 cm Mitral Valve MV E to A Ratio: 1.42 Mitral Valve A-Wave Peak Velocity: 0.77 m/s Mitral Valve E-Wave Peak Velocity: 1.09 m/s Right Ventricle Aorta AO Root Diam: 2.78 cm Ascending Ao Diam: 2.57 cm Aortic Valve AoV Area (Peak Anthony): 2.05 cm2, 2.05 cm2 AoV Area (VTI): 2.10 cm2, 2.10 cm2 Peak Velocity(Antegrade Flow): 1.49 m/s Peak Gradient(Antegrade Flow): 8.86 mm[Hg] Mean Velocity(Antegrade Flow): 0.91 m/s Mean Gradient(Antegrade Flow): 3.93 mm[Hg] Velocity Time Integral: 33.69 cm Tricuspid Valve Peak Velocity (Regurgitant Flow): 2.72 m/s, 3.22 m/s, 2.77 m/s Pulmonic Valve Peak Gradient: 3.32 mm[Hg], 2.82 mm[Hg] Right Atrium Right Atrium Systolic Pressure: 69.19 ml, 52.14 ml, 69.19 ml Dictated by: Aung Alvarez M.D. on 01/09/2025 at 12:21 Approved by: Aung Alvarez M.D. on 01/09/2025 at 12:26
== END 2025-01-09 07:48 | disposition home or self-care (01) ==
LOC: CARD 07:48
PROVIDERS: PCP Family Medicine; Visit Provider Internal Medicine Interventional Cardiology
DX: R07.89 Other chest pain (principal); I16.0 Hypertensive urgency
CPT/HCPCS: 93306

== ENCOUNTER 2025-02-09 09:14 | Outpatient (OUT) | payer OTHER, SELFPAY ==
--- NOTE | 2025-02-09 09:28 | XR_ITS ---
The [address] [address] Patient Name: ZUNILDA ARIAS MRN: [id number] date: 1960 Sex: F Assigned Patient Location: [facility] Current Patient Location: [facility] Accession/Order Number: [id number] Exam Date: 02/09/2025 10:11 Report Date: 02/09/2025 10:21 At the request of: SANTOSH SCHUMACHER MD Procedure: XR shoulder RT min 2V RIGHT SHOULDER - 3 views CLINICAL HISTORY: Right shoulder pain for the past 2 weeks with radiation down the arm. No injury. COMPARISON: 02/04/2024 AP, Y and Grashey views were obtained. There is osteopenia. There is no acute fracture or dislocation. Hypertrophy is again seen at the acromioclavicular joints. There is subchondral sclerosis and cystic change as well as spurring at the insertion of the rotator cuff near the greater tuberosity. Narrowing of the acromiohumeral interval is again noted and this likely indicates rotator cuff disease. There are no significant soft tissue abnormalities. XR/XR shoulder RT min 2V IMPRESSION: OSTEOPENIA AND DEGENERATIVE CHANGES SIMILAR TO THE PRIOR. NO ACUTE BONY FINDINGS. Impression dictated by: Eloisa Argueta M.D. 02/09/2025 10:21 AM Dictation Location: [place] [address] Electronically authenticated by: [id number] Y Date: 02/09/2025 10:21
--- OUTSIDE RECORDS SUMMARY | 2025-02-09 09:37 | XMS_ITS | CCD ---
Author Organization [facility] Care Team Providers Care Dish Technician Name Role Phone MD Lisa Hennessy Attending Provider MD Howard Schumacher Primary Care Provider MD Howard Schumacher Referring Provider [phone] DO Tone Magana Attending Provider MD Howadr Schumacher Primary Care Provider MD Lisa Hennessy Attending Provider MD Howard Schumacher Referring Provider [phone] MD Lisa Hennessy Attending Provider [phone] MD Lisa Hennessy Referring Provider [phone] ENDY, DR HOWARD Otto Primary Care Unavailable [place], DR Oreilly Consulting Unavailable NADERER, DR HOWARD [...] Unavailable ZIEBER, DR CORBIN [place] Consult[employer] Unavailable NADBELLA, DR HOWARD Otto Attending Unavailable ENDY, DR HOWARD Otto Consulting Unavailable MD Lisa Hennessy Attending Provider [phone] MD Lisa Hennessy Referring Provider MD Howard Schumacher Primary Care Provider MD Lisa Hennessy Attending Provider MD Lisa Hennessy Referring Provider MD Howard Schumacher Primary Care Provider [phone] MD Lisa Hennessy Attending Provider [phone] MD Lisa Hennessy Referring Provider MD Howard Schumacher Primary Care Provider MD Lisa Hennessy Attending Provider MD Lisa Hennessy Referring Provider MD Howard Schumacher Primary Care Provider MD Lisa Hennessy Attending Provider MD Lisa Hennessy Referring Provider MD Howard Schumacher Primary Care Provider [phone] MD Lisa Hennessy Attending Provider MD Lisa Hennessy Referring Provider MD Howard Schumacher Primary Care Provider DO Jacinto Mcnulty Attending Provider MD Lisa Hennessy Attending Provider MD Lisa Hennessy Referring Provider MD Howard Schumacher Primary Care Provider Howard Schumacher MD Primary Care Provider Iam GREEN WARE CASTER, Ciera L Unavailable Howard Schumacher MD Unavailable TASHA WALTER Attending Unavailable TONE MAGANA Attending Unavailable BANDAR ESPINOSA Attending Unavailable HOWARD SCHUMACHER Attending Unavailable TONE MAGANA Attending Unavailable BNADAR ESPINOSA Attending Unavailable HOWARD SCHUMACHER Attending Unavailable BANDAR ESPINOSA Attending Unavailable Howard Schumacher Primary Care Unavailable Lisa Hennessy Admitting Unavailable Lisa Hennessy Attending Unavailable Lisa Hennessy Referring Unavailable Allergies Allergy Classification Reported Allergen(s) Allergy Type Date of Onset Reaction(s) Facility (20 sources) Penicillin; Translations: [penicillin G] Drug Allergy 2 Unknown [facility] (1 source) Penicillin Drug Allergy 2 [facility] Repository (1 source) Penicillins; Translations: [PENICILLINS] Propensity to adverse reactions to drug (disorder) 3 [facility] Repository Medications Current Medications Medication [...] Active ascorbic acid 1000 mg oral tablet (18 sources) Vitamin C Ascorbic Acid (vitamin C) [...] 12:00am calcium carbonate 500 mg oral tablet (18 sources) calcium carbonat e (Os-Satya) 1250 (500 Ca) MG tablet 1 (one) time each day at the same time. Active cholecalciferol 0.025 mg oral tablet (20 sources) Vitamin D Start: 2022 take 1 tablet by mouth once daily Cholecalciferol (Vitamin D3) (Vitamin D3) 25 mcg (1,000 unit) Tablet Active 25 MCG PO Daily September 11, 2022 12:00am docusate sodium 100 mg oral capsule (18 sources) Start: 2022 take 1 capsule by mouth once daily at bedtime docusate sodium (Colace) 100 MG capsule take 1 capsule by mouth every morning and BEFORE BEDTIME 01/25/2023 Active docusate sodium 50 mg / sennosides, prison 8.6 mg oral tablet (8 sources) Start: [...] 2023 11:00pm meloxicam 15 mg oral tablet (20 sources) Nonsteroidal Anti-inflammatory Drug Start: 2022 End: [...] 12:20pm to radiation site daily AFTER radiation [place] (No Known Home Meds) (3 sources) Start: 03-14-2022 [place] (No Kn own Home Meds) Active March [...] 02-01-2024 01-30-2022 Chronic Disorders of lipid metabolism (14 sources) Dyslipidemia; Translations: [Hyperlipidemia, unspecified] Onset: 08-04-2023 08-01-2024 Chronic Mycoses (1 source) Pain in toe; Translations: [Tinea unguium] 12-28-2024 Episodic Nonspecific chest pain (2 sources) Other chest pain; Translations: [Other chest pain] Onset: 12-22-2024 Episodic Other aftercare (10 sources) Encounter for therapeutic drug level monitoring; Translations: [Encounter for therapeutic drug monitoring] 06-18-2022 Episodic Other bone disease and musculoskeletal deformities (10 sources) Other specified disorders of bone density and structure, unspecified site; Translations: [Disorder of bone and cartilage, unspecified] 06-18-2022 Episodic Other circulatory disease (2 sources) Other specified symptoms and signs involving the circulatory and respiratory systems; Translations: [Other specified symptoms and signs involving the circulatory and respiratory systems] Onset: 12-22-2024 Episodic Other connective tissue disease (4 sources) Pain of toe of left foot; Translations: [Pain in left toe(s)] 07-28-2024 Episodic Other female genital disorders (5 sources) Other specified conditions associated with female genital organs and menstrual cycle; Translations: [Other specified symptoms associated with female genital organs] 03-12-2023 Episodic Other liver diseases (2 sources) Non-alcoholic fatty liver; Translations: [Fatty (change of) liver, not elsewhere classified] Onset: 09-28-2024 09-28-2024 Chronic Other liver diseases (2 sources) 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-alcoholic steatohepatitis; Translations: [Fatty (change of) liver, not elsewhere classified] Onset: 09-28-2024 09-28-2024 Chronic Other non-traumatic joint disorders (7 sources) Pain in unspecified joint; Translations: [Pain in joint, site unspecified] 03-12-2023 Episodic Other skin disorders (4 sources) Ingrowing [...] LUMP RT BREAST OVRLPNG QUADRNTS] Onset: 01-01-2022 Past or Other Problems Problem Classification Problem Date Documented Da te Episodic/Chronic Immunizations and screening for infectious disease (18 sources) Anti-nuclear factor positive; Translations: [Other specified abnormal immunological findings in serum] Onset: 08-04-2023 08-04-2023 Episodic Nonmalignant breast conditions (20 sources) Unspecified lump in the right breast, upper inner quadrant; Translations: [Pain of breast] Onset: 12-25-2021 Episodic Other aftercare (9 sources) Drug therapy finding; Translations: [Encounter for therapeutic drug level monitoring] Onset: 11-09-2023 04-02-2022 Episodic Other aftercare (20 sources) Long-term current use of drug therapy; Translations: [Encounter for therapeutic drug level monitoring] Onset: 08-04-2023 04-02-2022 Episodic Other and unspecified benign neoplasm (4 sources) Angiomyolipoma of right kidney; Translations: [Benign lipomatous neoplasm of kidney] Onset: 09-28-2024 09-28-2024 Episodic Other bone disease and musculoskeletal deformities (20 sources) Osteopenia; Translations: [Other specified disorders of bone density and structure, unspecified site] Onset: 11-09-2023 06-11-2022 Episodic Other connective tissue disease (18 sources) Lump on face; Translations: [Other specified soft tissue disorders] Onset: 06-26-2023 06-26-2023 Episodic Other female genital disorders (20 sources) Mass of uterine adnexa; Translations: [Other specified conditions associated with female genital organs and menstrual cycle] Onset: 11-09-2023 02-19-2023 Episodic Other non-traumatic joint disorders (20 sources) Joint pain; Translations: [Pain in unspecified joint] Onset: 08-04-2023 02-19-2023 Episodic Other non-traumatic joint disorders (18 sources) Chronic pain of right upper limb; Translations: [Pain in right shoulder] Onset: 02-01-2024 02-01-2024 Episodic Other nutritional; endocrine; and metabolic disorders (18 sources) Body mass index 30+ - obesity; Translations: [Obesity, unspecified] Onset: 08-04-2023 Resolved: 08-01-2024 08-04-2023 Chronic Other screening for suspected conditions (not mental disorders or infectious disease) (20 sources) Patient encounter status; Translations: [Encounter for screening for osteoporosis] Onset: 08-04-2023 04-02-2022 Episodic Residual codes; unclassified (1 source) Family history of malignant neoplasm of digestive organs; Translations: [FAM HX MALIG NEOPLASM DIGESTIV ORGN] Onset: 01-01-2022 Episodic Results Test Name Value Interpretation Reference Range Facility MM screening mammo BI w/CADo n 01-02-2025 MM screening mammo BI w/CAD [facility] [address] [place] [address] Mammography Report Signed Patient: Denia Al MR#: [id number] : 1960 Acct:[id number] Age/Sex: 64 / F Adm Date: 08/22/24 Loc: Room: Type: [facility] Attending Dr: Lisa Hennessy MD Ordering Provider: Meena Lucero APRN Date of Service: 12/31/24 Procedure(s): MM screening mammo BI w/CAD Accession Number(s): ([id number]) MM/MM screening mammo BI w/CAD: Z17.0 - Estrogen receptor positive status [ER+] Copies to: MD Meena Kay APRN Marc Naderer, MD BILATERAL Screening Full Field digital mammogram with 3-D imaging. Full field digital CC and MLO imaging performed. CAD utilized. COMPARISON: 12/31/2023 HISTORY: Annual screening BREAST COMPOSITION: Scattered fibroglandular densities of the breast parenchyma identified BREAST CALCIFICATIONS: Benign calcifications present. VASCULAR CALCIFICATIONS: None ARCHITECTURAL DISTORTION: None BREAST NODULE: None AXILLARY LYMPH NODES: Normal POSTSURGICAL CHANGES: Stable right lumpectomy changes MM/MM screening mammo BI w/CAD IMPRESSION: No mammographic evidence of malignancy. Routine follow-up recommended in one year. RESULT CODE: 2 Benign Findings(s) DENSITY CODE: 2 (approximately 25-50% glandular) There are scattered areas of fibroglandular density. FOLLOW UP: 1YR THE FALSE-NEGATIVE RATE OF MAMMOGRAPHY IS APPROXIMATELY 10%. IMAGING OF A PALPABLE ABNORMALITY MUST BE BASED ON CLINICAL GROUNDS. PATIENT WAS ENTERED INTO A REMINDER SYSTEM WITH A TARGET DUE DATE FOR THE NEXT MAMMOGRAM. Impression dictated by: Ricardo Dumas M.D. 01/02/2025 8:32 AM Dictation Location: [facility] Dictated By: Ricardo Dumas DO 01/02/25829 Signed By: 01/02/2532 Normal [facility] Office Visiton 12-22-2024 Follow-up visit [id number] Denia Al 1960 F Date Provider Department Center 12/22/2024 [id number], EHAB [facility] No family history on file Level of Service:69792 [place] OFFICE/OUTPATIENT NEW MODERATE MDM 45 MINUTES Normal [facility] Orders Onlyon 12-21-2024 Orders Only [id number] Denia Al 1960 F Date Provider Department Center 12/21/2024 [id number], HISTORICAL CARD [facility] No family history on file [facility] [place] [address] Ultrasound Report Signed Patient: DENIA AL MR#: [id number] : 1960 Acct:[id number] Age/Sex: 64 / F ADM Date: 09/26/24 Loc: US Attending Dr: Howard Schumacher M.D. Ordering Physician: Howard Schumacher M.D. Date of Service: 09/26/24 Procedure(s): US right upper quadrant Accession Number(s): [id number] cc: Howard Schumacher M.D. [place] [id number] Patient Name: DENIA AL MRN: [id number] date: 1960 Sex: F Assigned Patient Location: US Current Patient Location: US Accession/Order Number: [id number] Exam Date: 09/26/2024 16:15 Report Date: 09/26/2024 16:18 At the request of: HOWARD SCHUMACHER MD Procedure: US right upper quadrant Right upper quadrant ultrasound. Reason for exam: Elevated LFTs. COMPARISON: None. TECHNIQUE: Grayscale and color Doppler images of the right upper quadrant organs were obtained. FINDINGS: Fatty infiltration of the liver without focal mass or intrahepatic ductal dilatation. Hepatopedal flow is seen within the portal vein. Visualized pancreas appears unremarkable. Gallbladder appears unremarkable. CBD measures 4.5 mm. Visualized portions of the right kidney demonstrates a 9 mm angiomyolipoma. No hydronephrosis. US/US right upper quadrant IMPRESSION: Fatty infiltration of the liver. 9 mm angiomyolipoma right kidney. Impression dictated by: Johny Melgar Jr., D.O.09/26/2024 4:18 PM Dictation Location: [place] [address] Electronically authenticated by: [id number] Y Date: 09/26/2024 16:18 Dictated By: Johny Melgar M.D. Signed By: 09/26/24 162 DD/ 1618 TD/TT: Insole And Outsole Preparer: [facility] Radiology Radiologheber wallis MD - 09/26/2024 [place] [address] Ultrasound Report Signed Patient: DENIA AL MR#: [id number] : 1960 Acct:[id number] Age/Sex: 64 / F ADM Date: 09/26/24 Loc: US Attending Dr: Howard Schumacher M.D. Ordering Physician: Howard Schumacher M.D. Date of Service: 09/26/24 Procedure(s): US right upper quadrant Accession Number(s): [id number] cc: Howard Schumacher M.D. [place] [id number] Patient Name: DENIA AL MRN: [facility]:[id number] date: 1960 Sex: F Assigned Patient Location: Current Patient Location: US Accession/Order Number: [id number] Exam Date: 09/26/2024 16:15 Report Date: 09/26/2024 16:18 At the request of: HOWARD SCHUMACHER MD Procedure: US right upper quadrant Right upper quadrant ultrasound. Reason for exam: Elevated LFTs. COMPARISON: None. TECHNIQUE: Grayscale and color Doppler images of the right upper quadrant organs were obtained. FINDINGS: Fatty infiltration of the liver without focal mass or intrahepatic ductal dilatation. Hepatopedal flow is seen within the portal vein. Visualized pancreas appears unremarkable. Gallbladder appears unremarkable. CBD measures 4.5 mm. Visualized portions of the right kidney demonstrates a 9 mm angiomyolipoma. No hydronephrosis. US/US right upper quadrant IMPRESSION: Fatty infiltration of the liver. 9 mm angiomyolipoma right kidney. Impression dictated by: Johny Melgar Jr., D.O.09/26/2024 4:18 PM Dictation Location: [place] [address] Electronically authenticated by: [id number] Y Date: 09/26/2024 16:18 Dictated By: Johny Melgar M.D. Signed By: 09/26/24 162 DD/ 1618 TD/TT: Insole And Outsole Preparer: [facility] Radiology Study observation (narrative) [facility] US RIGHT UPPER QUADRANTOrder ed By: Radiologist Radiology on 09-26-2024 [facility] Work Phone: ALL CBC WITH AUTO DIFFon BASOPHILS ABSOLUTE AUTO 0.1 [facility] Basophils/100 WBC (Bld) 2.2 % High 0.2 - 2.0 % [facility] Eosinophils/100 WBC (Bld) 9.4 % High 0.9 - 7.0 % [facility] Erythrocyte distribution width (RBC) [Ratio] 12.7 % 11.0 - 15.0 % [facility] Hematocrit (Bld) [Volume fraction] 42.4 % 36.0 - 48.0 % [facility] Hemoglobin (Bld) [Mass/Vol] 14.3 g/dL 12.0 - 16.0 g/dL [facility] IMMATURE GRANULOCYTES ABS AUTO 0.01 [facility] Immature granulocytes/100 WBC (Bld) 0.2 % 0.0 - 0.5 % [facility] Interpretation and review of laboratory results Abnormal [facility] LYMPHOCYTES ABSOLUTE AUTO 1.8 [facility] Lymphocytes/100 WBC (Bld) 43.8 % 20.5 - 60.0 % [facility] MCH (RBC) [Entitic mass] 32.9 pg 26.7 - 34.0 pg [facility] MCHC (RBC) [Mass/Vol] 33.7 g/dL 29.9 - 35.2 g/dL [facility] MCV (RBC) [Entitic vol] 97.5 fL 81.0 - 99.0 fL [facility] MONOCYTES ABSOLUTE AUTO 0.5 [facility] Monocytes/100 WBC (Bld) 12 % 1.7 - 12.0 % [facility] NEUTROPHILS ABSOLUTE AUTO 1.4 [facility] Neutrophils/100 WBC (Bld) 32.4 % Low 43.0 - 75.0 % [facility] Platelet mean volume (Bld) [Entitic vol] 9 fL Low 9.5 - 13.5 fL [facility] EO # 0.4 [facility] PLT 310 [facility] RBC 4.35 [facility] WBC 4.2 [facility] Alanine aminotransferase [En zymatic activity/volume] in Serum or PlasmaOrdered By: Ciera Vitale on 03-12-2023 ALT [Catalytic activity/Vol] 27 U/L 7-52 [facility] Albumin [Mass/volume] in Ser um or Plasma by Bromocresol green (BCG) dye binding methoOrdered By: Ciera Vitale on 03-12-2023 Albumin BCG dye [Mass/Vol] 4.1 g/dL 3.5-5.7 [facility] Alkaline phosphatase [Enzyma tic activity/volume] in Serum or PlasmaOrdered By: Ciera Vitale on 03-12-2023 ALP [Catalytic activity/Vol] 76 U/L 34-104 [facility] Aspartate aminotransferase [ Enzymatic activity/volume] in Serum or PlasmaOrdered By: Ciera Vitale on 03-12-2023 AST [Catalytic activity/Vol] 32 U/L 13-39 [facility] Basophils Auto (Bld) [#/Vol] Ordered By: Ciera Vitale on 03-12-2023 Basophils (Bld) [#/Vol] 0.1 10*3/uL 0.0-0.2 [facility] Basophils/100 WBC Auto (Bld) Ordered By: Ciera Vitale on 03-12-2023 Basophils/100 WBC (Bld) 1.2 % . [facility] Bilirubin.total [Mass/volume ] in Serum or PlasmaOrdered By: Ciera Vitale on 03-12-2023 Bilirubin [Mass/Vol] 0.6 mg/dL 0.3-1.0 [facility] C reactive protein [Mass/vol ume] in Serum or PlasmaOrdered By: Ciera Vitale on 03-12-2023 CRP [Mass/Vol] 0.5 mg/dL 0.0-0.5 [facility] Calcium [Mass/volume] in Ser um or PlasmaOrdered By: Ciera Vitale on 03-12-2023 Calcium [Mass/Vol] 9.6 mg/dL 8.6-10.3 [facility] Carbon dioxide, total [Moles /volume] in Serum or PlasmaOrdered By: Ciera Vitale on 03-12-2023 CO2 [Moles/Vol] 28.4 mmol/L 21.0-31.0 [facility] Chloride [Moles/volume] in S wilber or PlasmaOrdered By: Ciera Vitale on 03-12-2023 Chloride [Moles/Vol] 107 mmol/L 98-107 [facility] Creatinine [Mass/volume] in Serum or PlasmaOrdered By: Ciera Vitale on 03-12-2023 Creatinine [Mass/Vol] 0.65 mg/dL 0.60-1.20 [facility] Eosinophils Auto (Bld) [#/Vo l]Ordered By: Ciera Vitale on 03-12-2023 Eosinophils (Bld) [#/Vol] 0.3 10*3/uL 0.0-0.45 [facility] Eosinophils/100 WBC Auto (Bl d)Ordered By: Ciera Vitale on 03-12-2023 Eosinophils/100 WBC (Bld) 5.1 % . [facility] Erythrocyte distribution wid th Auto (RBC) [Ratio]Ordered By: Ciera Vitale on 03-12-2023 Erythrocyte distribution width (RBC) [Ratio] 13.9 % 11.9-15.3 [facility] Erythrocyte sedimentation ra te by Photometric methodOrdered By: Ciera Vitale on 03-12-2023 ESR Photometric method (Bld) [Velocity] 25 mm/hr 0-29 [facility] Globulin Calc (S) [Mass/Vol] Ordered By: Ciera Vitale on 03-12-2023 Globulin (S) [Mass/Vol] 2.8 g/dL [facility] Glucose [Mass/volume] in Ser um or PlasmaOrdered By: Ciera Vitale on 03-12-2023 Glucose [Mass/Vol] 95 mg/dL 70-100 [facility] Comment on above: ADA recommended refe rence rangeRandom Glucose Reference Range is dependent on time and content of last meal. Glucose of more than 200 mg/dL in a nonstressed, ambulatory subject supports the diagnosis of Diabetes Mellitus. Hematocrit Auto (Bld) [Volum e fraction]Ordered By: Ciera Vitale on 03-12-2023 Hematocrit (Bld) [Volume fraction] 38.8 % 34.0-46.4 [facility] Hemoglobin [Mass/volume] in BloodOrdered By: Ciera Vitale on 03-12-2023 Hemoglobin (Bld) [Mass/Vol] 12.6 g/dL 11.8-15.4 [facility] Leukocytes [#/volume] correc pedro for nucleated erythrocytes in Blood by Automated counOrdered By: Ciera Vitale on 03-12-2023 WBC corrected for nucl RBC Auto (Bld) [#/Vol] 6.5 10*3/uL 3.8-11.6 [facility] Lymphocytes Auto (Bld) [#/Vo l]Ordered By: Ciera Vitale on 03-12-2023 Lymphocytes (Bld) [#/Vol] 1.5 10*3/uL 1.00-4.8 [facility] Lymphocytes/100 WBC Auto (Bl d)Ordered By: Ciera Vitale on 03-12-2023 Lymphocytes/100 WBC (Bld) 23.0 % . [facility] MCH Auto (RBC) [Entitic mass ]Ordered By: Ciera Vitale on 03-12-2023 MCH (RBC) [Entitic mass] 31.7 pg 24.7-34.3 [facility] MCHC Auto (RBC) [Mass/Vol]Or dered By: Ciera Vitale on 03-12-2023 MCHC (RBC) [Mass/Vol] 32.6 g/dL 32.0-35.0 [facility] MCV Auto (RBC) [Entitic vol] Ordered By: Ciera Vitale on 03-12-2023 MCV (RBC) [Entitic vol] 97.3 fL 80-100 [facility] Monocytes Auto (Bld) [#/Vol] Ordered By: Ciera Vitale on 03-12-2023 Monocytes (Bld) [#/Vol] 0.9 10*3/uL High 0.0-0.8 [facility] Monocytes/100 WBC Auto (Bld) Ordered By: Ciera Vitale on 03-12-2023 Monocytes/100 WBC (Bld) 13.4 % . [facility] Neutrophils Auto (Bld) [#/Vo l]Ordered By: Ciera Vitale on 03-12-2023 Neutrophils (Bld) [#/Vol] 3.7 10*3/uL 1.8-7.7 [facility] Neutrophils/100 WBC Auto (Bl d)Ordered By: Ciera Vitale on 03-12-2023 Neutrophils/100 WBC (Bld) 57.3 % . [facility] No Panel InformationOrdered By: Ciera Vitale on 03-12-2023 Anti-Nuclear Antibody Comment 2 See comment . [facility] Comment on above: For more information [...] titers Nucleosomes, Histones Drug-induced SLE Speckled Sm, SAFETY AND SECURITY OFFICER, SCL-70, SLE,MCTD,PSS (diffuse form), SS-A/SS-B Sjogrens Nucleolar SCL-70, PM-1/SCL High titers Scleroderma, PM/DM Centromere Centromere PSS (limited form) w/Crest syndrome variable Nuclear Dot Sp100,[id number] Primary Biliary Cirrhosis Nuclear GP210, Primary Biliary CirrhosisMembrane rory A,B,C Performed at: [facility] [address] [id number] Director: Abdifatah Villegas PhD, Phone: [phone] Estimated GFR (CKD-EPI) > 60.0 mL/Min [facility] Creatinine Clearance (Chem 88.96 [facility] Nucleated erythrocytes [Pres ence] in Blood by Automated countOrdered By: Ciera Vitale on 03-12-2023 Nucleated RBC Auto Ql (Bld) 0.1 /100{WBC} 0-0.5 [facility] Platelet mean volume Auto (B ld) [Entitic vol]Ordered By: Ciera Vitale on 03-12-2023 Platelet mean volume (Bld) [Entitic vol] 8.5 fL 6.3-10.7 [facility] Platelets Auto (Bld) [#/Vol] Ordered By: Ciera Vitale on 03-12-2023 Platelets (Bld) [#/Vol] 417 10*3/uL 150-450 [facility] Potassium [Moles/volume] in Serum or PlasmaOrdered By: Ciera Vitale on 03-12-2023 Potassium [Moles/Vol] 4.7 mmol/L 3.5-5.1 [facility] Protein [Mass/volume] in Ser um or PlasmaOrdered By: Ciera Vitale on 03-12-2023 Protein [Mass/Vol] 6.9 g/dL 6.4-8.9 [facility] RBC Auto (Bld) [#/Vol]Ordere d By: Ciera Vitale on 03-12-2023 RBC (Bld) [#/Vol] 3.99 10*6/uL 3.60-5.00 [facility] Serum homogeneous pattern an tinuclear antibody ([place]) titerOrdered By: Ciera Vitale on 03-12-2023 Homogenous nuclear Ab pattern (S) [Titer] 1:160 High . [facility] Comment on above: ICAP nomenclature: A C-1 Serum nuclear antibody titer Ordered By: Ciera Vitale on 03-12-2023 Nuclear Ab (S) [Titer] Positive Abnormal . [facility] Comment on above: Negative <1:80 Borde rline 1:80 Positive >1:80 Serum nucleolar pattern anti nuclear antibody ([place]) titerOrdered By: Ciera Vitale on 03-12-2023 Nucleolar nuclear Ab pattern (S) [Titer] 1:320 High . [facility] Comment on above: ICAP nomenclature: A C-8,9,10 Serum or plasma albumin/glob ulin mass ratioOrdered By: Ciera Vitale on 03-12-2023 Albumin/Globulin [Mass ratio] 1.5 {ratio} [facility] Serum or plasma anion gap de terminationOrdered By: Ciera Vitale on 03-12-2023 Anion gap [Moles/Vol] 9.3 mmol/L 6.0-15.0 [facility] Serum or plasma cyclic adeno sine monophosphate measurement (moles/volume)Ordered By: Ciera Vitale on 03-12-2023 Adenosine monophosphate.cyclic [Moles/Vol] 6 units 0-19 [facility] Comment on above: Negative <20 Weak po sitive 20 - 39 Moderate positive 40 - 59 Strong positive >59Performed at: [facility] [id number] Director: Abdifatah Villegas PhD, Phone: [phone] Serum or plasma rheumatoid f actor measurement (units/volume)Ordered By: Ciera Vitale on 03-12-2023 Rheumatoid factor Qn 10.3 [IU]/mL <14.0 [facility] Sodium [Moles/volume] in Ser um or PlasmaOrdered By: Ciera Vitale on 03-12-2023 Sodium [Moles/Vol] 140 mmol/L 136-145 [facility] Urea nitrogen [Mass/volume] in Serum or PlasmaOrdered By: Ciera Vitale on 03-12-2023 Urea nitrogen [Mass/Vol] 6 mg/dL Low 7-25 [facility] WBC Auto (Bld) [#/Vol]Ordere d By: Ciera Vitale on 03-12-2023 WBC (Bld) [#/Vol] 6.5 10*3/uL 3.8-11.6 [facility] COVID-19 Positive/NegativeOr dered By: Tone Magana on 03-05-2022 SARS-CoV-2 (COVID-19) N gene AMY+probe Ql (Resp) Negative Negative [facility] Comment on above: Testing for SARS-CoV -2 by RT-PCR This test was developed and its performance characteristics determined by [email or web address] ([employer]) and validated at the [facility]. This test has not been FDA [...] N gene AMY+probe Ql (Resp) Negative Negative [facility] Comment on above: Testing for SARS-CoV -2 by RT-PCR This test was developed and its performance characteristics determined by [employer] ([employer]) and validated at the [facility]. This test has not been FDA [...] 02-10-2022 Basophils (Bld) [#/Vol] 0.1 10*3/uL 0.0-0.2 [facility] Basophils/100 WBC Auto (Bld) Ordered By: Tone Magana on 02-10-2022 Basophils/100 WBC (Bld) 1.3 % . [facility] Blood hemoglobin measurement (mass/volume)Ordered By: Tone Magana on 02-10-2022 Hemoglobin (Bld) [Mass/Vol] 14.5 g/dL 11.8-15.4 [facility] Blood leukocytes automated c ount (number/volume)Ordered By: Tone Magana on 02-10-2022 WBC (Bld) [#/Vol] 8.1 10*3/uL 4.5-11.0 [facility] Creatinine and Glomerular fi ltration rate.predicted panel (S/P/Bld)Ordered By: Tone Magana on 02-10-2022 Creatinine [Mass/Vol] 0.64 mg/dL 0.44-1.03 [facility] Eosinophils Auto (Bld) [#/Vo l]Ordered By: Tone Magana on 02-10-2022 Eosinophils (Bld) [#/Vol] 0.8 10*3/uL 0.0-0.45 [facility] Eosinophils/100 WBC Auto (Bl d)Ordered By: Tone Magana on 02-10-2022 Eosinophils/100 WBC (Bld) 10.2 % . [facility] Erythrocyte distribution wid th Auto (RBC) [Ratio]Ordered By: Tone Magana on 02-10-2022 Erythrocyte distribution width (RBC) [Ratio] 13.4 % 11.9-15.3 [facility] Estimated glomerular filtrat ion rate (GFR) non- AmericanOrdered By: Tone Magana on 02-10-2022 GFR/1.73 sq M.predicted among non-blacks MDRD (S/P/Bld) [Vol rate/Area] > 60 mL/Min [facility] Hematocrit Auto (Bld) [Volum e fraction]Ordered By: Tone Magana on 02-10-2022 Hematocrit (Bld) [Volume fraction] 43.4 % 34.0-46.4 [facility] - Hematology and Cell countsOrdered By: Tone Magana on 02-10-2022 Nucleated RBC/100 WBC (Bld) [Ratio] 0.2 % 0-0.5 [facility] Lymphocytes Auto (Bld) [#/Vo l]Ordered By: Tone Magana on 02-10-2022 Lymphocytes (Bld) [#/Vol] 1.7 10*3/uL 1.00-4.8 [facility] Lymphocytes/100 WBC Auto (Bl d)Ordered By: Tone Magana on 02-10-2022 Lymphocytes/100 WBC (Bld) 21.4 % . [facility] MCH Auto (RBC) [Entitic mass ]Ordered By: Tone Magana on 02-10-2022 MCH (RBC) [Entitic mass] 33.8 pg 24.7-34.3 [facility] MCHC Auto (RBC) [Mass/Vol]Or dered By: Tone Magana on 02-10-2022 MCHC (RBC) [Mass/Vol] 33.4 g/dL 32.0-35.0 [facility] MCV Auto (RBC) [Entitic vol] Ordered By: Tone Magana on 02-10-2022 MCV (RBC) [Entitic vol] 101.3 fL 80-100 [facility] Monocytes Auto (Bld) [#/Vol] Ordered By: Tone Magana on 02-10-2022 Monocytes (Bld) [#/Vol] 1.0 10*3/uL 0.0-0.8 [facility] Monocytes/100 WBC Auto (Bld) Ordered By: Tone Magana on 02-10-2022 Monocytes/100 WBC (Bld) 12.2 % . [facility] Neutrophils Auto (Bld) [#/Vo l]Ordered By: Tone Magana on 02-10-2022 Neutrophils (Bld) [#/Vol] 4.4 10*3/uL 1.8-7.7 [facility] Neutrophils/100 WBC Auto (Bl d)Ordered By: Tone Magana on 02-10-2022 Neutrophils/100 WBC (Bld) 54.9 % . [facility] No Panel InformationOrdered By: Tone Magana on 02-10-2022 Estimated GFR () > 60 mL/Min [facility] Comment on above: GFR estimated refere nce range: According to KDOQI guidelines, <60 ml/min/1.73m2 is sufficient to diagnose a patient with chronic kidney disease. Pharmacy Creatinine Clearance (Chem N/A [facility] Platelet mean volume Auto (B ld) [Entitic vol]Ordered By: Tone Magana on 02-10-2022 Platelet mean volume (Bld) [Entitic vol] 8.1 fL 6.3-10.7 [facility] Platelets Auto (Bld) [#/Vol] Ordered By: Tone Magana on 02-10-2022 Platelets (Bld) [#/Vol] 388 10*3/uL 150-450 [facility] RBC Auto (Bld) [#/Vol]Ordere d By: Tone Magana on 02-10-2022 RBC (Bld) [#/Vol] 4.29 10*6/uL 3.60-5.00 [facility] Serum or plasma calcium cyndee urement (mass/volume)Ordered By: Tone Magana on 02-10-2022 Calcium [Mass/Vol] 9.6 mg/dL 8.2-10.2 [facility] Serum or plasma chloride raf surement (moles/volume)Ordered By: Tone Magana on 02-10-2022 Chloride [Moles/Vol] 106 mmol/L 95-114 [facility] Serum or plasma glucose cyndee urement (mass/volume)Ordered By: Tone Magana on 02-10-2022 Glucose [Mass/Vol] 103 mg/dL 70-100 [facility] Comment on above: ADA recommended refe rence range Random Glucose Reference Range is dependent on time and content of last meal. Glucose of more than 200 mg/dL in a nonstressed, ambulatory subject supports the diagnosis of Diabetes Mellitus. Serum or plasma potassium me asurement (moles/volume)Ordered By: Tone Magana on 02-10-2022 Potassium [Moles/Vol] 4.2 mmol/L 3.5-5.1 [facility] Serum or plasma sodium measu rement (moles/volume)Ordered By: Tone Magana on 02-10-2022 Sodium [Moles/Vol] 140 mmol/L 136-146 [facility] Serum or plasma total carbon dioxide measurement (moles/volume)Ordered By: Tone Magana on 02-10-2022 CO2 [Moles/Vol] 25.4 mmol/L 22.0-30.0 [facility] Serum or plasma urea nitroge n measurement (mass/volume)Ordered By: Tone Magana on 02-10-2022 Urea nitrogen [Mass/Vol] 4 mg/dL 9-23 [facility] US VAC ASST BX BREAST RT W C LIPon 01-09-2022 US VAC ASST BX BREAST RT W CLIP Begin Addendum #1 COLLECTED DATE/TIME: 01/01/2022 08:41 EDT Final Diagnosis Report for [facility] [place] RIGHT BREAST MASS, 1 O'CLOCK, ULTRASOUND [...] mass 2. Pathology results are pending. Normal [facility] MAMMO POST BIOPSY RIGHTon MAMMO POST BIOPSY RIGHT Patient: DENIA AL Exam Date: 01/01/2022 : 1960 Gender:F Ordering : DR HOWARD SCHUMACHER . Admission #: [id number] Family : Order #: [id number] CLICK HERE TO VIEW EXAM RADIOLOGY REPORT PROCEDURE: MAMMOGRAM POST BIOPSY IMAGES COMPARISON: MAMM DIAGNOSTIC 3D ALFREDO CAD, 12/25/2021. INDICATIONS: Mammographic mass of right breast BREAST COMPOSITION: FINDINGS: BIOPSY MARKER: A metallic marker has been placed in the targeted location within the biopsied mass. BREAST FINDINGS: Postprocedural changes Dictated by: Denilson Veliz MD on 01/01/2022 at 09:07 Approved by: Denilson Veliz MD on 01/01/2022 at 09:08 Normal [facility] MAMM DIAGNOSTIC 3D ALFREDO CA Don 12-25-2021 MG MAMM DIAGNOSTIC 3D ALFREDO CAD Patient: DENIA AL Exam Date: 12/25/2021 : 1960 Gender:F Ordering : DR HOWARD SCHUMACHER . Admission #: [id number] Family : Order #: [id number] CLICK HERE TO VIEW EXAM RADIOLOGY REPORT [...] stomach cancer at age 82. LOCATION: [facility] BREAST COMPOSITION: Almost entirely fatty. FINDINGS: [...] radiology department nurse will contact patient to automotive parts counter assistant scheduling a biopsy. LEFT BREAST: A few, scattered benign-appearing tiny calcifications. No suspicious findings. RECOMMENDATIONS: ULTRASOUND-GUIDED CORE BIOPSY: RIGHT BREAST PLEASE NOTE: A NORMAL MAMMOGRAM DOES NOT EXCLUDE THE POSSIBILITY OF BREAST CANCER. A CLINICALLY SUSPICIOUS PALPABLE LUMP SHOULD BE BIOPSIED. Dictated by: Corbin Lester M.D. on 12/25/2021 at 08:39 Approved by: Corbin Lester M.D. on 12/25/2021 at 08:49 Normal [facility] US BREAST RIGHT LIMITEDon US BREAST RIGHT LIMITED Patient: DENIA AL Exam Date: 12/25/2021 : 1960 Gender:F Ordering : DR HOWARD SCHUMACHER . Admission #: [id number] Family : Order #: [id number] CLICK HERE TO VIEW EXAM RADIOLOGY REPORT [...] stomach cancer at age 82. LOCATION: [facility] BREAST COMPOSITION: Almost entirely fatty. FINDINGS: [...] radiology department nurse will contact patient to automotive parts counter assistant scheduling a biopsy. LEFT BREAST: A few, scattered benign-appearing tiny calcifications. No suspicious findings. RECOMMENDATIONS: ULTRASOUND-GUIDED CORE BIOPSY: RIGHT BREAST PLEASE NOTE: A NORMAL MAMMOGRAM DOES NOT EXCLUDE THE POSSIBILITY OF BREAST CANCER. A CLINICALLY SUSPICIOUS PALPABLE LUMP SHOULD BE BIOPSIED. Dictated by: Corbin Lester M.D. on 12/25/2021 at 08:39 Approved by: Corbin Lester M.D. on 12/25/2021 at 08:49 Normal [facility] CBC AUTO DIFFon 12-09-2021 BASO # 0.1 103/ul Normal 0.0-0.1 [facility] Comment on above: Performed By: #### C BC #### [facility] [address] [address] [address] Yaya Cee Basophils/100 WBC (Bld) 1.7 % Normal 0.2-2.0 [facility] Comment on above: Performed By: #### C BC #### [facility] [address] [address] [address] Yaya Cee EO # 0.7 103/ul Normal 0.0-0.7 [facility] Comment on above: Performed By: #### C BC #### [facility] [address] [address] [address] Yaya Cee Eosinophils/100 WBC (Bld) 9.7 % Critically high 0.9-7.0 [facility] Comment on above: Performed By: #### C BC #### [facility] [address] [address] [address] Yaya Cee Erythrocyte distribution width (RBC) [Ratio] 13.7 % Normal 11.0-15.0 [facility] Comment on above: Performed By: #### C BC #### [facility] [address] [place] [address] Dr. Yaya Cee Hematocrit (Bld) [Volume fraction] 43.0 % Normal 36.0-48.0 [facility] Comment on above: Performed By: #### C BC #### [facility] [address] [place] [address] Dr. Yaya Cee Hemoglobin (Bld) [Mass/Vol] 13.9 g/dL Normal 12.0-16.0 [facility] Comment on above: Performed By: #### C BC #### [facility] [address] [place] [address] Dr. Yaya Cee IG # 0.05 10e3/ul Critically high 0.00-0.03 [facility] Comment on above: Performed By: #### C BC #### [facility] [address] [place] [address] Dr. aYya Cee IG % 0.7 % Critically high 0.0-0.5 [facility] Comment on above: Performed By: #### C BC #### [facility] [address] [place] [address] Dr. Yaya Cee LYMPH # 1.8 103/ul Normal 1.2-3.8 [facility] Comment on above: Performed By: #### C BC #### [facility] [address] [place] [address] Dr. Yaya Cee Lymphocytes/100 WBC (Bld) 25.4 % Normal 20.5-60.0 [facility] Comment on above: Performed By: #### C BC #### [facility] [address] [place] [address] Dr. Yaya Cee MANUAL DIFF REQ NO Normal [facility] Comment on above: Performed By: #### C BC #### [facility] [address] [place] [address] Dr. Yaya Cee MCH (RBC) [Entitic mass] 33.3 pg Normal 26.7-34.0 [facility] Comment on above: Performed By: #### C BC #### [facility] [address] [address] [address] Yaya Cee MCHC (RBC) [Mass/Vol] 32.3 g/dL Normal 29.9-35.2 [facility] Comment on above: Performed By: #### C BC #### [facility] [address] [address] [address] Yaya Cee MCV (RBC) [Entitic vol] 102.9 fL Critically high 81.0-99.0 [facility] Comment on above: Performed By: #### C BC #### [facility] [address] [address] [address] Yaya Cee MONO # 0.9 103/ul Critically high 0.3-0.8 [facility] Comment on above: Performed By: #### C BC #### [facility] [address] [address] [address] Yaya Cee Monocytes/100 WBC (Bld) 12.6 % Critically high 1.7-12.0 [facility] Comment on above: Performed By: #### C BC #### [facility] [address] [address] [address] Yaya Cee NEUT # 3.6 103/ul Normal 1.4-6.5 [facility] Comment on above: Performed By: #### C BC #### [facility] [address] [address] [address] Yaya Cee Neutrophils/100 WBC (Bld) 49.9 % Normal 43.0-75.0 [facility] Comment on above: Performed By: #### C BC #### [facility] [address] [address] [address] Yaya Cee Platelet mean volume (Bld) [Entitic vol] 10.0 fL Normal 9.5-13.5 [facility] Comment on above: Performed By: #### C BC #### [facility] [address] [address] [address] Yaya Cee PLT 421 103/ul Normal 150-450 [facility] Comment on above: Performed By: #### C BC #### [facility] [address] [address] [address] Yaya Cee RBC 4.18 106/ul Critically low 4.20-5.40 [facility] Comment on above: Performed By: #### C BC #### [facility] [address] [address] [address] Yaya Cee WBC 7.1 103/ul Normal 4.0-11.0 [facility] Comment on above: Performed By: #### C BC #### [facility] [address] [address] [address] Yaya Cee GLYCOHEMOGLOBIN A1Con 2021 ADA RECOMMENDATION SEE BELOW Normal [facility] Comment on above: Result Comment: ADA RECOMMENDED LIMIT 4.0 - 6.0 ADA THERAPEUTIC TARGET < 7.0 ACTION SUGGESTED > 7.0 Performed By: #### A 1C #### [facility] [address] [place] [address] Dr. Yaya Cee Glucose [Mass/Vol] 108 mg/dL Normal [facility] Comment on above: Performed By: #### A 1C #### [facility] [address] [place] [address] Dr. Yaya Cee HbA1c (Bld) [Mass fraction] 5.4 % Normal 4.5-6.2 [facility] Comment on above: Performed By: #### A 1C #### [facility] [address] [place] [address] Dr. Yaya Cee LIPID PROFILEon 12-09-2021 CHOL-HDL RATIO NORM SEE BELOW Normal [facility] Comment on above: Result Comment: 3.3 - 4.4 LOW RISK 4.4 - 7.1 AVERAGE RISK 7.1 - 11.0 MODERATE RISK >11.0 HIGH RISK Performed By: #### T SH, LIPID, LIVER, BMP #### [facility] [address] [place] [address] Dr. Yaya Cee Cholesterol [Mass/Vol] 219 mg/dL Critically high <=200 [facility] Comment on above: Performed By: #### T SH, LIPID, LIVER, BMP #### [facility] [address] [address] [address] Yaya Cee Cholesterol in HDL [Mass/Vol] 68 mg/dL Critically high 40-60 [facility] Comment on above: Performed By: #### T SH, LIPID, LIVER, BMP #### [facility] [address] [address] [address] Yaya Cee Cholesterol in LDL [Mass/Vol] 130.8 mg/dL Normal [facility] Comment on above: Performed By: #### T SH, LIPID, LIVER, BMP #### [facility] [address] [address] [address] Yaya Cee Cholesterol.total/Chol esterol in HDL [Mass ratio] 3.2 {ratio} Normal [facility] Comment on above: Performed By: #### T SH, LIPID, LIVER, BMP #### [facility] [address] [address] [address] Yaya Cee HDL NORMAL > or = 60 mg/dl - LO W CARDIOVASCULAR RISK <40 mg/dl - HIGH CARDIOVASCULAR RISK Normal [facility] Comment on above: Performed By: #### T SH, LIPID, LIVER, BMP #### [facility] [address] [address] [address] Yaya Cee LDL CALC NORMAL SEE BELOW Normal [facility] Comment on above: Result Comment: <100 mg/dl OPTIMAL 100 - 129 mg/dl NEAR OR ABOVE OPTIMAL 130 - 159 mg/dl BORDERLINE HIGH 160 - 189 mg/dl HIGH >190 mg/dl VERY HIGH Performed By: #### T SH, LIPID, LIVER, BMP #### [facility] [address] [place] [address] Dr. Yaya Cee Triglyceride [Mass/Vol] 101 mg/dL Normal <=150 [facility] Comment on above: Performed By: #### T SH, LIPID, LIVER, BMP #### [facility] [address] [place] [address] Dr. Yaya Cee VLDL CALC 20.2 mg/dL Normal [facility] Comment on above: Performed By: #### T SH, LIPID, LIVER, BMP #### [facility] [address] [address] [address] Yaya Cee LIVER PROFILEon 12-09-2021 Albumin [Mass/Vol] 3.6 g/dL Normal 3.4-5.0 [facility] Comment on above: Performed By: #### T SH, LIPID, LIVER, BMP #### [facility] [address] [address] [address] Yaya Cee Albumin/Globulin [Mass ratio] 1.0 {ratio} Normal [facility] Comment on above: Performed By: #### T SH, LIPID, LIVER, BMP #### [facility] [address] [address] [address] Yaya Cee ALP [Catalytic activity/Vol] 79 U/L Normal 46-116 [facility] Comment on above: Performed By: #### T SH, LIPID, LIVER, BMP #### [facility] [address] [place] [address] Dr. Yaya Cee ALT [Catalytic activity/Vol] 35 U/L Normal 14-59 [facility] Comment on above: Performed By: #### T SH, LIPID, LIVER, BMP #### [facility] [address] [address] [address] Yaya Cee AST [Catalytic activity/Vol] 60 U/L Critically high 15-37 [facility] Comment on above: Performed By: #### T SH, LIPID, LIVER, BMP #### [facility] [address] [place] [address] Dr. Yaya Cee BILI, CONJUGATED 0.1 mg/dL Normal 0.0-0.2 [facility] Comment on above: Performed By: #### T SH, LIPID, LIVER, BMP #### [facility] [address] [address] [address] Yaya Cee Bilirubin [Mass/Vol] 0.3 mg/dL Normal 0.2-1.0 [facility] Comment on above: Performed By: #### T SH, LIPID, LIVER, BMP #### [facility] [address] [address] [address] Yaya Cee Globulin (S) [Mass/Vol] 3.6 g/dL Normal [facility] Comment on above: Performed By: #### T SH, LIPID, LIVER, BMP #### [facility] [address] [address] [address] Yaya Cee Protein [Mass/Vol] 7.2 g/dL Normal 6.4-8.2 [facility] Comment on above: Performed By: #### T SH, LIPID, LIVER, BMP #### [facility] [address] [place] [address] Dr. Yaya Cee PROF CHEM 8 (BAS METB)on Anion gap [Moles/Vol] 11.4 mmol/L Normal [facility] Comment on above: Performed By: #### T SH, LIPID, LIVER, BMP #### [facility] [address] [place] [address] Dr. Yyaa Cee Calcium [Mass/Vol] 8.8 mg/dL Normal 8.5-10.1 [facility] Comment on above: Performed By: #### T SH, LIPID, LIVER, BMP #### [facility] [address] [place] [address] Dr. Yaya Cee Chloride [Moles/Vol] 108 mmol/L Critically high 98-107 [facility] Comment on above: Performed By: #### T SH, LIPID, LIVER, BMP #### [facility] [address] [place] [address] Dr. Yaya Cee CO2 [Moles/Vol] 25.4 mmol/L Normal 21.0-32.0 [facility] Comment on above: Performed By: #### T SH, LIPID, LIVER, BMP #### [facility] [address] [place] [address] Dr. Yaya Cee Creatinine [Mass/Vol] 0.63 mg/dL Normal 0.55-1.02 [facility] Comment on above: Performed By: #### T SH, LIPID, LIVER, BMP #### [facility] [address] [place] [address] Dr. Yaya Cee EGFR-AF QATARI >60 Normal >=60 [facility] Comment on above: Performed By: #### T SH, LIPID, LIVER, BMP #### [facility] [address] [address] [address] Yaya Cee EGFR-NON AF QATARI >60 Normal >=60 [facility] Comment on above: Performed By: #### T SH, LIPID, LIVER, BMP #### [facility] [address] [address] [address] Yaya Cee Glucose [Mass/Vol] 105 mg/dL Normal 74-106 [facility] Comment on above: Performed By: #### T SH, LIPID, LIVER, BMP #### [facility] [address] [address] [address] Yaya Cee Potassium [Moles/Vol] 4.8 mmol/L Normal 3.5-5.1 [facility] Comment on above: Performed By: #### T SH, LIPID, LIVER, BMP #### [facility] [address] [address] [address] Yaya Cee Sodium [Moles/Vol] 140 mmol/L Normal 136-145 [facility] Comment on above: Performed By: #### T SH, LIPID, LIVER, BMP #### [facility] [address] [address] [address] Yaya Cee Urea nitrogen [Mass/Vol] 7.0 mg/dL Normal 7.0-18.0 [facility] Comment on above: Performed By: #### T SH, LIPID, LIVER, BMP #### [facility] [address] [address] [address] Yaya Cee Urea nitrogen/Creatinine [Mass ratio] 11.1 mg/mg Normal [facility] Comment on above: Performed By: #### T SH, LIPID, LIVER, BMP #### [facility] [address] [address] [address] Yaya Cee TSHon 12-09-2021 TSH 0.600 uIU/mL Normal 0.358-3.740 [facility] Comment on above: Performed By: #### T SH, LIPID, LIVER, BMP #### [facility] [address] [place] [address] Dr. Yaya Cee TSH RANGE SEE BELOW Normal [facility] Comment on above: Result Comment: <0.3 4 UIU/ml HYPERTHYROID 0.34-5.60 UIU/ml EUTHYROID >5.60 UIU/ml HYPOTHYROID Performed By: #### T SH, LIPID, LIVER, BMP #### [facility] [address] [address] [address] Yaya Cee Vital Signs Date Time Vital Sign Value Performing Clinician Facility 01-05-2025 14:43-0400 Body height 165.1 cm Bandar Espinosa DPM Work Phone: [facility] 01-05-2025 14:43-0400 Body mass index (BMI) [Ratio] 27.62 kg/m2 Bandar Espinosa DPM Work Phone: [facility] 01-05-2025 14:43-0400 Body weight 75.3 kg Bandar Espinosa DPM Work Phone: [facility] 01-05-2025 14:43-0400 Respiratory rate 18 /min Bandar Espinosa DPM Work Phone: [facility] 10-21-2024 10:05-0400 Body height 165.1 cm Tone Itzkowitz DO Work Phone: [facility] 10-21-2024 10:05-0400 Body mass index (BMI) [Ratio] 27.62 kg/m2 Tone Itzkowitz DO Work Phone: [facility] 10-21-2024 10:05-0400 Body weight 75.3 kg Tone Itzkowitz DO Work Phone: [facility] 10-21-2024 10:05-0400 Diastolic blood pressure 85 mm[Hg] Tone Itzkowitz DO Work Phone: [facility] 10-21-2024 10:05-0400 Systolic blood pressure 130 mm[Hg] Tone Itzkowitz DO Work Phone: [facility] 08-22-2024 09:19-0500 Body height 165.1 cm [facility] 08-22-2024 09:19-0500 Body mass index (BMI) [Ratio] 28.4 kg/m2 [facility] 08-22-2024 09:19-0500 Body temperature 97.8 [degF] [facility] 08-22-2024 09:19-0500 Body weight 77.56 kg [facility] 08-22-2024 09:19-0500 Diastolic blood pressure 83 mm[Hg] [facility] 08-22-2024 09:19-0500 Heart rate 61 /min [facility] 08-22-2024 09:19-0500 Respiratory rate 16 /min [facility] 08-22-2024 09:19-0500 SaO2% (BldA) [Mass fraction] 97 % [facility] 08-22-2024 09:19-0500 Systolic blood pressure 156 mm[Hg] [facility] 08-11-2024 10:47-0500 Body height 165.1 cm Bandar Espinosa DPM Work Phone: [facility] 08-11-2024 10:47-0500 Body mass index (BMI) [Ratio] 28.29 kg/m2 Bandar Espinosa DPM Work Phone: [facility] 08-11-2024 10:47-0500 Body weight 77.11 kg Bandar Espinosa DPM Work Phone: [facility] 08-11-2024 10:47-0500 Respiratory rate 16 /min Bandar Espinosa DPM Work Phone: [facility] 08-01-2024 13:12-0500 Body height 165.1 cm Howard Schumacher MD Work Phone: [facility] 08-01-2024 13:12-0500 Body mass index (BMI) [Ratio] 28.29 kg/m2 Howard Schumacher MD Work Phone: [facility] 08-01-2024 13:12-0500 Body temperature 98.6 [degF] Howard Schumacher MD Work Phone: [facility] 08-01-2024 13:12-0500 Body weight 77.11 kg Howard Schumacher MD Work Phone: [facility] 08-01-2024 13:12-0500 Diastolic blood pressure 80 mm[Hg] Howard Schumacher MD Work Phone: [facility] 08-01-2024 13:12-0500 Heart rate 104 /min Howard Schumacher MD Work Phone: [facility] 08-01-2024 13:12-0500 Respiratory rate 22 /min Howard Schumacher MD Work Phone: [facility] 08-01-2024 13:12-0500 SaO2% (BldA) [Mass fraction] 97 % Howard Schumacher MD Work Phone: [facility] 08-01-2024 13:12-0500 Systolic blood pressure 168 mm[Hg] Howard Schumacher MD Work Phone: [facility] 07-28-2024 11:08-0500 Body height 165.1 cm Bandar Espinosa DPM Work Phone: [facility] 07-28-2024 11:08-0500 Body mass index (BMI) [Ratio] 26.63 kg/m2 Bandar Espinosa DPM Work Phone: [facility] 07-28-2024 11:08-0500 Body weight 72.58 kg Bandar Espinosa DPM Work Phone: [facility] 07-28-2024 11:08-0500 Respiratory rate 16 /min Bandar Espinosa DPM Work Phone: [facility] 04-01-2024 09:51-0400 Body height 165.1 cm Tone Itzkowitz DO Work Phone: [facility] 04-01-2024 09:51-0400 Body mass index (BMI) [Ratio] 27.76 kg/m2 Tone Itzkowitz DO Work Phone: [facility] 04-01-2024 09:51-0400 Body weight 75.66 kg Tone Itzkowitz DO Work Phone: [facility] 04-01-2024 09:51-0400 Diastolic blood pressure 88 mm[Hg] Tone Itzkowitz DO Work Phone: [facility] 04-01-2024 09:51-0400 Systolic blood pressure 152 mm[Hg] Tone Itzkowitz DO Work Phone: [facility] 02-11-2024 08:23-0400 Body temperature 97.8 [degF] MD Lisa Hennessy Work Phone: [facility] 02-11-2024 08:23-0400 Body weight 76.2 kg MD Lisa Hennessy Work Phone: [facility] 02-11-2024 08:23-0400 Diastolic blood pressure 85 mm[Hg] MD Lisa Hennessy Work Phone: [facility] 02-11-2024 08:23-0400 Heart rate 65 /min MD Lisa Hennessy Work Phone: [facility] 02-11-2024 08:23-0400 Respiratory rate 16 /min MD Lisa Hennessy Work Phone: [facility] 02-11-2024 08:23-0400 SaO2% (BldA) [Mass fraction] 100 % MD Lisa Hennessy Work Phone: [facility] 02-11-2024 08:23-0400 Systolic blood pressure 158 mm[Hg] MD Lisa Hennessy Work Phone: [facility] 07-02-2023 12:55-0500 Body temperature 97.9 [degF] MD Lisa Hennessy Work Phone: [facility] 07-02-2023 12:55-0500 Body weight 80.28 kg MD Lisa Hennessy Work Phone: [facility] 07-02-2023 12:55-0500 Diastolic blood pressure 96 mm[Hg] MD Lisa Hennessy Work Phone: [facility] 07-02-2023 12:55-0500 Heart rate 73 /min MD Lisa Hennessy Work Phone: [facility] 07-02-2023 12:55-0500 Respiratory rate 16 /min MD Lisa Hennessy Work Phone: [facility] 07-02-2023 12:55-0500 SaO2% (BldA) [Mass fraction] 96 % MD Lisa Hennessy Work Phone: [facility] 07-02-2023 12:55-0500 Systolic blood pressure 167 mm[Hg] MD Lisa Hennessy Work Phone: [facility] 04-16-2023 11:06-0400 Body temperature 98.1 [degF] MD Lisa Hennessy Work Phone: [facility] 04-16-2023 11:06-0400 Body weight 77.83 kg MD Lisa Hennessy Work Phone: [facility] 04-16-2023 11:06-0400 Diastolic blood pressure 87 mm[Hg] MD Lisa Hennessy Work Phone: [facility] 04-16-2023 11:06-0400 Heart rate 63 /min MD Lisa Hennessy Work Phone: [facility] 04-16-2023 11:06-0400 Respiratory rate 20 /min MD Lisa Hennessy Work Phone: [facility] 04-16-2023 11:06-0400 SaO2% (BldA) [Mass fraction] 99 % MD Lisa Hennessy Work Phone: [facility] 04-16-2023 11:06-0400 Systolic blood pressure 131 mm[Hg] MD Lisa Hennessy Work Phone: [facility] 03-12-2023 13:02-0400 Body temperature 98.8 [degF] MD Lisa Hennessy Work Phone: [facility] 03-12-2023 13:02-0400 Body weight 75.61 kg MD Lias Hennessy Work Phone: [facility] 03-12-2023 13:02-0400 Diastolic blood pressure 86 mm[Hg] MD Lisa Hennessy Work Phone: [facility] 03-12-2023 13:02-0400 Heart rate 55 /min MD Lisa Hennessy Work Phone: [facility] 03-12-2023 13:02-0400 Respiratory rate 18 /min MD Lisa Hennessy Work Phone: [facility] 03-12-2023 13:02-0400 SaO2% (BldA) [Mass fraction] 99 % MD Lisa Hennessy Work Phone: [facility] 03-12-2023 13:02-0400 Systolic blood pressure 174 mm[Hg] MD Lisa Hennessy Work Phone: [facility] 12-31-2022 13:23-0400 Body temperature 97.8 [degF] MD Lisa Hennessy Work Phone: [facility] 12-31-2022 13:23-0400 Body weight 76.2 kg MD Lisa Hennessy Work Phone: [facility] 12-31-2022 13:23-0400 Diastolic blood pressure 84 mm[Hg] MD Lisa Hennessy Work Phone: [facility] 12-31-2022 13:23-0400 Heart rate 62 /min MD Lisa Hennessy Work Phone: [facility] 12-31-2022 13:23-0400 Respiratory rate 16 /min MD Lisa Hennessy Work Phone: [facility] 12-31-2022 13:23-0400 SaO2% (BldA) [Mass fraction] 98 % MD Lisa Hennessy Work Phone: [facility] 12-31-2022 13:23-0400 Systolic blood pressure 172 mm[Hg] MD Lisa Hennessy Work Phone: [facility] 09-11-2022 14:57-0500 Body height 165.1 cm MD Lisa Hennessy Work Phone: [facility] 09-11-2022 14:57-0500 Body temperature 98.4 [degF] MD Lisa Hennessy Work Phone: [facility] 09-11-2022 14:57-0500 Body weight 76.1 kg MD Lisa Hennessy Work Phone: [facility] 09-11-2022 14:57-0500 Diastolic blood pressure 78 mm[Hg] MD Lisa Hennessy Work Phone: [facility] 09-11-2022 14:57-0500 Heart rate 89 /min MD Lisa Hennessy Work Phone: [facility] 09-11-2022 14:57-0500 Respiratory rate 20 /min MD Lisa Hennessy Work Phone: [facility] 09-11-2022 14:57-0500 SaO2% (BldA) [Mass fraction] 99 % MD Lisa Hennessy Work Phone: [facility] 09-11-2022 14:57-0500 Systolic blood pressure 144 mm[Hg] MD Lisa Hennessy Work Phone: [facility] 06-18-2022 08:57-0500 Body temperature 98.2 [degF] MD Lisa Hennessy Work Phone: [facility] 06-18-2022 08:57-0500 Body weight 76.3 kg MD Lisa Hennessy Work Phone: [facility] 06-18-2022 08:57-0500 Diastolic blood pressure 77 mm[Hg] MD Lisa Hennessy Work Phone: [facility] 06-18-2022 08:57-0500 Heart rate 66 /min MD Lisa Hennessy Work Phone: [facility] 06-18-2022 08:57-0500 Respiratory rate 18 /min MD Lisa Hennessy Work Phone: [facility] 06-18-2022 08:57-0500 SaO2% (BldA) [Mass fraction] 98 % MD Lisa Hennessy Work Phone: [facility] 06-18-2022 08:57-0500 Systolic blood pressure 136 mm[Hg] MD Lisa Hennessy Work Phone: [facility] 04-02-2022 08:43-0400 Body temperature 97 [degF] MD Howard Schumacher Work Phone: [facility] 04-02-2022 08:43-0400 Body weight 74.38 kg MD Howard Schumacher Work Phone: [facility] 04-02-2022 08:43-0400 Diastolic blood pressure 85 mm[Hg] MD Howard Schumacher Work Phone: [facility] 04-02-2022 08:43-0400 Heart rate 66 /min MD Howard Schumacher Work Phone: [facility] 04-02-2022 08:43-0400 Respiratory rate 16 /min MD Howard Schumacher Work Phone: [facility] 04-02-2022 08:43-0400 SaO2% (BldA) [Mass fraction] 98 % MD Howard Schumacher Work Phone: [facility] 04-02-2022 08:43-0400 Systolic blood pressure 159 mm[Hg] MD Howard Schumacher Work Phone: [facility] 03-14-2022 13:12-0400 Body temperature 97.8 [degF] MD Howard Schumacher Work Phone: [facility] 03-14-2022 13:12-0400 Body weight 74.84 kg MD Howard Schumacher Work Phone: [facility] 03-14-2022 13:12-0400 Diastolic blood pressure 82 mm[Hg] MD Howard Schumacher Work Phone: [facility] 03-14-2022 13:12-0400 Heart rate 99 /min MD Howard Schumacher Work Phone: [facility] 03-14-2022 13:12-0400 Respiratory rate 16 /min MD Howard Schumacher Work Phone: [facility] 03-14-2022 13:12-0400 SaO2% (BldA) [Mass fraction] 98 % MD Howard Schumacher Work Phone: [facility] 03-14-2022 13:12-0400 Systolic blood pressure 165 mm[Hg] MD Howard Schumacher Work Phone: [facility] 03-07-2022 08:55-0400 Diastolic blood pressure 84 mm[Hg] MD Howard Schumacher Work Phone: [facility] 03-07-2022 08:55-0400 Heart rate 80 /min MD Howard Schumacher Work Phone: [facility] 03-07-2022 08:55-0400 Respiratory rate 20 /min MD Howard Schumacher Work Phone: [facility] 03-07-2022 08:55-0400 SaO2% (BldA) [Mass fraction] 95 % MD Howard Schumacher Work Phone: [facility] 03-07-2022 08:55-0400 Systolic blood pressure 135 mm[Hg] MD Howard Schumacher Work Phone: [facility] 03-07-2022 07:10-0400 Body height 165.1 cm MD Howard Schumacher Work Phone: [facility] 03-07-2022 07:10-0400 Body mass index (BMI) [Ratio] 27.3 kg/m2 MD Howard Schumacher Work Phone: [facility] 03-07-2022 07:10-0400 Body weight 74.38 kg MD Howard Schumacher Work Phone: [facility] 03-07-2022 06:11-0400 Body temperature 98 [degF] MD Howard Schumacher Work Phone: [facility] 02-18-2022 20:17-0400 Body mass index (BMI) [Ratio] 26.4 kg/m2 MD Howard Schumacher Work Phone: [facility] 02-18-2022 15:30-0400 Diastolic blood pressure 76 mm[Hg] MD Howard Schumacher Work Phone: [facility] 02-18-2022 15:30-0400 Heart rate 59 /min MD Howard Schumacher Work Phone: [facility] 02-18-2022 15:30-0400 Respiratory rate 16 /min MD Howard Schumacher Work Phone: [facility] 02-18-2022 15:30-0400 SaO2% (BldA) [Mass fraction] 95 % MD Howard Schumacher Work Phone: [facility] 02-18-2022 15:30-0400 Systolic blood pressure 136 mm[Hg] MD Howard Schumacher Work Phone: [facility] 02-18-2022 13:38-0400 Body temperature 97.9 [degF] MD Howard Schumacher Work Phone: [facility] 02-18-2022 13:38-0400 Inhaled oxygen flow rate 6 L/min MD Howard Schumacher Work Phone: [facility] 02-18-2022 11:06-0400 Body height 165.1 cm MD Howard Schumacher Work Phone: [facility] 02-18-2022 11:06-0400 Body weight 72 kg MD Howard Schumacher Work Phone: [facility] 01-29-2022 13:25-0400 Body temperature 97.2 [degF] MD Lisa Hennessy Work Phone: [facility] 01-29-2022 13:25-0400 Body weight 72.57 kg MD Lisa Hennessy Work Phone: [facility] 01-29-2022 13:25-0400 Diastolic blood pressure 90 mm[Hg] MD Lisa Hennessy Work Phone: [facility] 01-29-2022 13:25-0400 Heart rate 72 /min MD Lisa Hennessy Work Phone: [facility] 01-29-2022 13:25-0400 Respiratory rate 16 /min MD Lisa Hennessy Work Phone: [facility] 01-29-2022 13:25-0400 SaO2% (BldA) [Mass fraction] 98 % MD Lisa Hennessy Work Phone: [facility] 01-29-2022 13:25-0400 Systolic blood pressure 160 mm[Hg] MD Lisa Hennessy Work Phone: [facility] 01-29-2022 12:53-0400 Body height 165.1 cm MD Lisa Hennessy Work Phone: [facility] Encounters Encounter Date Encounter Type Care Provider Facility Start: 01-05-2025 End: 01-05-2025 Patient encounter procedure Bandar Espinosa DPM Work Phone: [facility] Comment on above: Pain due to onychomy cosis of toenails of both feet (Primary Dx) Start: 01-05-2025 End: 01-05-2025 ambulatory BANDAR ESPINOSA Not Available Start: 01-05-2025 End: 01-05-2025 Bamboo flowsheet Bandar Espinosa DPM Work Phone: [facility] Start: 01-05-2025 End: 01-05-2025 Bamboo flowsheet Bandar Espinosa DPM Work Phone: [facility] Start: 12-22-2024 End: 12-22-[address] 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, estrogen receptor positive (CMS/HCC) (Primary Dx) Start: 10-21-2024 End: 10-21-2024 ambulatory TONE MAGANA Not Available Start: 09-26-2024 End: 09-26-2024 Clinisync Result Encounter Howard Schumacher MD Work Phone: [facility] Unsolicited Start: 09-26-2024 End: 09-26-2024 Clinisync Result Encounter Howard Schumacher MD Work [...] Start: 08-22-2024 End: 08-22-2024 ambulatory Howard Schumacher [facility] Work Phone: Start: 08-22-2024 End: 08-22-2024 [facility]: Start: 08-11-2024 End: [...] 04-01-2024 Office outpatient visit 25 minutes Tone Maxx Izzy DO Work Phone: [facility] Comment on above: 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, estrogen receptor positive (CMS/HCC) (Primary Dx) Start: 04-01-2024 End: 04-01-2024 ambulatory TONE Maxx IZZY Not Available Start: 02-11-2024 End: 02-11-2024 ambulatory MD Lisa Hennessy Work Phone: [facility] Work Phone: Start: 02-11-2024 End: 02-11-2024 Patient encounter procedure MD [facility] Work Phone: Start: 02-11-2024 Registered Recurring MD Lisa fernandes [facility] Work Phone: Start: 02-01-2024 End: 02-01-2024 ambulatory HOWARD SCHUMACHER Not Available Start: 07-28-2023 End: 07-28-2023 ambulatory MD Lisa Hennessy Work Phone: [facility] Work Phone: Start: 07-28-2023 End: 07-28-2023 Departed Referred MD Lisa Hennessy Work Phone: [facility] [place] Work Phone: Start: 07-02-2023 Registered Recurring MD Lisa fernandes [facility] Work [facility]: Start: 04-16-2023 End: 04-16-2023 ambulatory MD Lisa Hennessy Work Phone: [facility] Work Phone: Start: 04-16-2023 End: 04-16-2023 Registered Recurring MD Lisa Hennessy Work Phone: [facility] Work Phone: Start: 03-12-2023 End: 03-12-2023 ambulatory MD Lisa Hennessy Work Phone: [facility] Work Phone: Start: 03-12-2023 End: 03-12-2023 Registered Recurring MD Lisa Hennessy [facility]: Start: 12-31-2022 End: 12-31-2022 ambulatory MD Lisa Hennessy Work Phone: [facility] Work Phone: Start: 12-31-2022 End: 12-31-2022 Registered Recurring MD Lisa Hennessy [facility]: Start: 09-11-2022 End: 09-11-2022 ambulatory MD Lisa Hennessy Work Phone: [facility] Work Phone: Start: 09-11-2022 End: 09-11-2022 Registered Recurring MD Lisa Hennessy [facility]: Start: 06-18-2022 End: 06-18-2022 ambulatory MD Lisa Hennessy Work Phone: [facility] Work Phone: Start: 06-18-2022 End: 06-18-2022 Registered Recurring MD Lisa Henness[facility] Start: 04-02-2022 End: 04-02-2022 Registered Recurring MD Howard Schumacher [facility] [place] Start: 03-14-2022 End: 03-14-2022 Registered Recurring MD Howard Schumacher [facility] [place] Start: 03-07-2022 End: 03-07-2022 Admission to same day surgery center MD Howard Schumacher [facility] [place] [facility] [place] Start: 03-05-2022 End: 03-05-2022 Patient encounter procedure MD Howard Schumacher Work Phone: [facility] Start: 02-18-2022 End: 02-18-2022 Admission to same day surgery center MD Howard Schumacher [facility] [place] [facility] [place] Start: 02-14-2022 End: 02-14-2022 Patient encounter procedure MD Lisa Hennessy Work Phone: [facility] Start: 02-10-2022 End: 02-10-2022 Patient encounter procedure MD Lisa Hennessy Work Phone: [facility] Start: 02-07-2022 Registered Recurring MD Lisa fernandes [facility] Start: 01-01-2022 End: 01-01-[address] HOWARD SCHUMACHER Facility:[facility] Start: 12-25-2021 End: 12-26-[address] HOWARD SCHUMACHER Facility:[facility] Start: 12-13-2021 Encounter for genera l adult medical examination without abnormal findings DR HOWARD SCHUMACHER [facility] Start: 12-09-2021 End: 12-10-[address] HOWARD SCHUMACHER Facility:[facility] Start: 12-09-2021 End: 05-17-2022 Encounter for general adult medical examination without abnormal findings DR HOWARD SCHUMACHER Facility:[facility] Procedures Date Procedure Procedure Detail Performing Clinician Start: 09-26-2024 US RIGHT UPPER QUADRANT Howard Schumacher MD Work Phone: Start: 09-15-2024 ALL CBC WITH AUTO DIFF Howard Schumacher MD Work Phone: Start: 12-31-2023 Ultrasonography of limb MD Lisa Hennessy Work Phone: Start: 12-31-2023 Bilateral mammography M D Lisa Hennessy Work Phone: Start: 03-23-2023 NM bone scan whole body MD Lisa Hennessy Work Phone: Start: 12-29-2022 Bilateral mammography M D Lisa Hennessy Work Phone: Start: 04-10-2022 Dual energy [...] Treatment Date Care Activity Detail Author Start: 04-24-2025 End: 04-24-2025 Patient encounter procedure 04/24/2025 2:45 PM EDT Office Visit [facility] [address] [address] Tone Magana DO [address] [facility] [address] [place] [address] [facility] [employer] Start: 03-27-2025 Influenza vaccination Influenz a Vaccine (Season Ended) [facility] Start: 03-16-2025 End: 03-16-2025 Patient encounter procedure 03/16/2025 11:10 AM EDT Procedure Visit [facility] [address] [facility] [address] [place] [address] Bandar Espinosa DPM [address] [address] [facility] Start: 02-06-2025 End: 02-06-2025 Patient encounter procedure 02/06/2025 11:30 AM EDT Office Visit [facility] [address] [place] [address] Howard Schumacher MD [address] [place] [address] [facility] Start: 01-05-2025 End: 01-05-2025 Patient encounter procedure 01/05/2025 2:50 PM EDT Procedure Visit [facility] [address] [place] [address] Bandar Espinosa DPM [address] [address] Pain due to onychomycosis of toenails of both feet (Primary Dx) [facility] Comment on above: Pain due to onychomy cosis of toenails of both feet (Primary Dx) Start: 10-06-2024 End: 10-06-2024 Patient encounter procedure 10/06/2024 11:10 AM EDT Procedure Visit [facility] [address] [facility] [address] [place] [address] Bandar Espinosa DPM [address] [address] [facility] Start: 09-30-2024 End: 09-30-2024 Patient encounter procedure 09/30/2024 10:15 AM EST Office Visit [facility] [address] [facility] [address] [place] [id number] Tone Magana DO [address] [facility] [address] [place] [address] [facility] Start: 09-15-2024 End: 09-15-2025 Hepatitis 1996 panel - Serum Hepatitis panel, acute Lab Routine Elevated liver function tests Expected: 09/15/2024 (Approximate), Expires: 09/15/2025 [facility] Work Phone: Comment on above: Expected: 09/15/2024 (Approximate), Expires: 09/15/2025 Start: 09-15-2024 End: 09-15-2025 US Abdomen limited US LIVER Imaging Routine Elevated liver function tests Expected: 09/15/2024, Expires: 09/15/2025 [facility] Comment on above: Expected: 09/15/2024 , Expires: 09/15/2025 Start: 08-11-2024 End: 08-11-2024 Patient encounter procedure [facility] Comment on above: Onychocryptosis (Ely heidi Dx); Toe pain, left; Abscess, toe, left Start: 08-04-2024 Screening for malign ant neoplasm of colon Colorectal Cancer Screening [facility] Comment on above: Postponed from 04/18 (Patient Refused) Start: 08-01-2024 End: 08-01-2025 Basic metabolic 1998 panel - Serum or Plasma Basic metabolic panel Lab Routine Encounter for long-term (current) use of medications Expected: 08/01/2024 (Approximate), Expires: 08/01/2025 [facility] Work Phone: Comment on above: Expected: 08/01/2024 (Approximate), Expires: 08/01/2025 Start: 08-01-2024 End: 08-01-2025 CBC W Auto Differential panel - Blood CBC and differential Lab Routine Encounter for long-term (current) use of medications Expected: 08/01/2024 (Approximate), Expires: 08/01/2025 [facility] Comment on above: Expected: 08/01/2024 (Approximate), Expires: 08/01/2025 Start: 08-01-2024 End: 08-01-2025 Hepatic function 2000 panel - Serum or Plasma Hepatic function panel Lab Routine Encounter for long-term (current) use of medications Expected: 08/01/2024 (Approximate), Expires: 08/01/2025 [facility] Comment on above: Expected: 08/01/2024 (Approximate), Expires: 08/01/2025 Start: 08-01-2024 End: 08-01-2025 Lipid 1996 panel - Serum or Plasma Lipid panel Lab Routine Dyslipidemia (CMS/HCC) Expected: 08/01/2024 (Approximate), Expires: 08/01/2025 [facility] Comment on above: Expected: 08/01/2024 (Approximate), Expires: 08/01/2025 Start: 08-01-2024 End: 08-01-2024 Patient encounter procedure 08/01/2024 1:00 PM EST Office Visit [facility] [address] [place] [address] Howard Schumacher MD [address] [place] [address] [facility] Start: 07-28-2024 End: 07-28-2024 Patient encounter procedure 07/28/2024 11:00 AM EST Office Visit [facility] [address] [facility] [address] [place] [id number] Bandar Espinosa DPM [address] [facility] [address] [place] [address] Arrived [facility] Comment on above: Arrived Start: 03-27-2024 Influenza vaccination Influenza Vacc ine (#1) [facility] Start: 03-14-2022 Registered Recurring [id number] [facility] Start: 03-07-2022 [facility] Work Phone: Start: 03-07-2022 OR Wound Debridement/I&D/Hydradeni tis (Right) OR Wound Debridement/I&D/Hydrade nitis (Right) [facility] Start: 03-07-2022 [facility] Work Phone: Start: 03-07-2022 End: 03-07-2022 Admission to same day surgery center Departed Surgical Day Care [facility] [place] Start: 03-05-2022 End: 03-05-2022 Patient encounter procedure Departed Clinical [facility]-Pre-Surgical [facility] Start: 02-18-2022 [facility] Work Phone: Start: 02-18-2022 [facility] Work Phone: Start: 06-11-2000 Pneumococcal Vaccine : 65+ Years (2 of 2 - PCV) Pneumococcal Vaccine: 65+ Years (2 of 2 - PCV) [facility] Start: 1988 Screening for malign ant neoplasm of cervix [facility] Start: 1979 Screening for malign ant neoplasm of cervix Pap Smear [facility] Start: 1958 Medicare Annual Well ness (AWV) Medicare Annual Wellness (AWV) [facility] Start: 1958 Screening for malign ant neoplasm of colon [facility] Adenosine monophosphate.cyclic [Moles/volume] in Serum or Plasma [facility] Comprehensive metabo lic 2000 panel - Serum or Plasma [facility] DXA Skeletal system. axial Views for bone density [facility] Work Phone: DXA Skeletal system. axial Views for bone density [facility] Homogenous nuclear A b pattern [Titer] in Serum [facility] MG Breast - bilatera l Diagnostic [facility] MG Breast - bilatera l Diagnostic [facility] MG Breast - bilatera l Screening [facility] Work Phone: NM Whole body Bone Views [facility] Nuclear Ab [Titer] i n Serum [facility] Patient Education Anastrozole [facility] Work Phone: Patient referral [facility] Work Phone: Rheumatoid factor [Units/volume] in Serum or Plasma [facility] Ultrasonic guidance for needle biopsy [facility] Immunizations Immunization Date Immunization Notes Care Provider Fátima wilson 06-04-2023 RSV, recombinant, protein subunit RSVpreF, adjuvant reconstitu, 120mcg/0.5mL, PF (Arexvy) Tone Itzkowitz DO Work Phone: [facility] 05-21-2023 Influenza, Seasonal, Quadrivalent, Adjuvanted Tone Itzkowitz DO Work Phone: [facility] 05-21-2023 influenza virus vacc ine, unspecified formulation Tone Itzkowitz DO Work Phone: [facility] 05-13-2022 influenza, injectabl e, quadrivalent, preservative free Tone Itzkowitz DO Work Phone: [facility] 10-29-2021 COVID-19 mRNA-1273 (Moderna) MD Lisa Hennessy Work Phone: [facility] 06-19-2021 COVID-19 mRNA-1273 (Modernmartinez) MD Lisa Hennessy Work Phone: [facility] 06-19-2021 influenza, injectabl e, quadrivalent, preservative free Tone Itzkowitz DO Work Phone: [facility] 10-26-2020 COVID-19 mRNA-1273 (Moderna) MD Lisa Hennessy Work Phone: [facility] 09-28-2020 COVID-19 mRNA-1273 (Moderna) MD Lisa Hennessy Work Phone: [facility] 04-05-2020 influenza, injectabl e, quadrivalent, preservative free Tone Itzkowitz DO Work Phone: [facility] 06-11-1999 pneumococcal polysaccharide vaccine, 23 valent Tone Itzkowitz DO Work Phone: [facility] Payers Date Payer Category Payer Self-pay [id number] 2024 Medicare (Managed Care) [employer] [id number] 2024 Unknown [employer] D [employer] [id number] 2024-Present [address] [address] [id number] 2024 Unknown [id number] 2023 Medicare [id number] 1959 Unknown [id number] 1960 Unknown [id number]. 593 1958 Unknown [id number] [id number]. 593 1958 Unknown [id number] [id number]. 593 1958 Unknown [id number] [id number]. 1259 1958 Unknown [id number] 2.16.840.1.276729.3.579.2. 1259 1958 Unknown [id number] 2.16.840.1.033232.3.579.2. 1258 1958 Unknown [id number] 2.16.840.1.560385.3.579.2. 1258 1958 Unknown [id number] 2.16.840.1.000989.3.579.2. 1258 1958 Unknown [id number] 2.16.840.1.059746.3.579.2. 1258 1958 Unknown [id number] 2.16.840.1.712695.3.579.2. 1258 Unknown Casandra Brownlee [facility] [id number] Unknown [id number]. 531 Social History Date Type Detail Facility Start: 04-12-1992 End: 04-12-2022 Tobacco smoking status [facility] Smoker (finding) [facility] Start: 1960 Sex Assigned At Female [facility] Start: 06-11-2022 End: 04-01-2024 Tobacco smoking status [facility] Ex-smoker (finding) [facility] Start: 04-12-1992 End: 04-12-2022 History of tobacco use Cigarette Smoker [facility] Start: 08-04-2023 End: 04-01-2024 Cigarettes smoked current (pack per day) - Reported 0.5 [facility] Start: 04-01-2024 Tobacco use and exposure Smokeless tobacco non-user [facility] Start: 04-01-2024 End: 01-05-2025 Alcoholic beverage intake Current drinker of alcohol (finding) [facility] Start: 08-04-2023 End: 04-01-2024 Tobacco use panel [facility] Start: 07-10-2023 Tobacco Comment Last smoked : 1-3 months [facility] Start: 07-10-2023 Alcohol Comment caffeine intak e : soda/pop; coffee [facility] Start: 1960 Sex assigned at Not on file [facility] Start: 08-22-2024 Sex Female (finding) [facility] Goals Date Patient Goal Desired Activity /State Clinical Notes 01-30-2022 to 01-05-2025 Bandar Espinosa DPM - 01/05/2025 2:50 PM Gertrudis Magana DO - 10/21/2024 10:15 AM Whit Espinosa DPM - 08/11/2024 10:50 AM Rob Schumacher MD - 08/01/2024 1:33 PM EST Note Date & Type Note Facility 01-05-2025 History of Present illness Narrative Patient: Denia Al : 1960 PCP: Howard Schumacher MD SUBJECTIVE This is a 64 y.o. female that presents today with a CC of elongated, thick nails. Pt states nails have been elongated and thick for many years and cause pain with ambulation in shoegear. Pt has tried previous treatment with minimal relief. Pt presents today for nail care and treatment. Allergies: Allergies Allergen Reactions Penicillin G Unknown Past Medical History: Past Medical History: Diagnosis Date Acute tonsillitis At low risk for fall Breast cancer ([facility]/HCC) [facility] ER/UT + Her2 neg Genetic testing negative Measles [...] mouth Daily, Disp: 30 tablet, Rfl: 11 Social History: Social History Socioeconomic History Marital [...] date: 04/12/1992 Quit date: 04/12/2022 Years since quittin.7 Smokeless tobacco: Never Tobacco comments: Last smoked [...] palpitations, irregular rhythms OBJECTIVE LE EXAM: DERM: Elongated thick yellow crumbly nails digits 1 through 10. Positive hair growth b/l feet. VASC: Positive palpable pedal pulses bilaterally NEURO: Gross sensation intact to bilateral feet ORTHO: Positive pain on palpation to toenails of the left 1,2,3,4,5 toes and right 1,2,3,4,5 toes ASSESSMENT 1. Pain due to onychomycosis of toenails of both feet PLAN Discussed proper foot care with patient today. Debride nails in length and thickness digits 1 through 10 Bandar Espinosa DPM documented in this encounter [facility] 12-22-2024 Note [facility] Cardiology Clinic Note Chief Complaint: Establish care HPI: Denia Al is a 64 y.o. female seen at [facility] ER on 12/20/2024 for high blood pressure. Patient woke up vomiting with a pounding head and jittery her daughter brought her to the ER. Patient states she feels better Per ER report: 64-year-old female presents to the emergency department for dizziness and elevated blood pressure. She states it began this morning. She had her blood pressure checked about 4 months ago and it was fine at her doctor's office. She checked at home and it was elevated. She does not complain to me of chest pain or back pain. She is not short of breath and has not had a fever. Her daughter tells me the patient's , her own father, about a month ago. Workup in the emergency room was unrevealing. She has had no further symptoms since discharge. Pertinently, she denies exertional chest pain or shortness of breath. She has no palpitations. She denies lightheadedness or dizziness. There has been no orthopnea, paroxysmal, dyspnea, or lower extremity edema. Past medical history: No history of diabetes, no known history of hypertension, no history of dyslipidemia. 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 Social history: She used to smoke; she quit 3 years ago. She drinks 6 alcoholic beverages daily. She denies illicit drug use. 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 Family history: No premature coronary artery disease in any first-degree relatives. Her parents both had hypertension. Review of Systems Constitutional: Negative. Past Medical History She has no past medical history on file. Surgical History She has no past surgical history on file. Social History She has no history on file for tobacco use, alcohol use, and drug use. Family History No family history on file. Allergies Penicillins Medications Current Outpatient Medications: amLODIPine (Norvasc) 2.5 mg tablet, Take 1 tablet by mouth in the morning., Disp: , Rfl: meloxicam (Mobic) 15 mg tablet, Take 1 tablet by mouth in the morning., Disp: , Rfl: anastrozole (Arimidex) 1 mg chemo tablet, Take 1 mg by mouth in the morning, Disp: , Rfl: ascorbic acid (Vitamin C) 1,000 mg tablet, Take 1,000 mg by mouth in the morning., Disp: , Rfl: cholecalciferol (Vitamin D-3) 25 MCG (1000 units) tablet, Take 1,000 Units by mouth in the morning., Disp: , Rfl: Last Recorded Vitals BP 128/77 (BP Location: Left arm, Patient Position: Sitting) Pulse 75 Ht 1.651 m (5' 5 ) Wt 73 kg (161 lb) SpO2 96% BMI 26.79 kg/m??? Physical Examination: GENERAL: alert and oriented x3, well developed, in no acute distress. HEAD: atraumatic, normocephalic. EYES: ALIDA, EOMI. NECK: trachea midline, no JVD present, no carotid bruits present. CARDIAC: S1, S2 present. RRR. No murmur, rubs, or gallops. RESPIRATORY: CTAB, no increased effort of breathing, no rales, rhonchi, or wheezing. ABDOMEN: soft, nontender, nondistended. EXTREMITIES: no lower extremity edema, peripheral pulses are 2+ bilaterally. No rash/skin discoloration present. NEURO: strength/sensation equal and symmetric in bilateral upper and lower extremities. PSYCH: appropriate mood, affect, and judgement. Investigations: EKG 12/20/2024: Sinus rhythm Normal ECG Labs: Troponin normal Assessment: Hypertensive urgency Excessive alcohol use Grief secondary to the passing of her spouse Plan: Overall, his symptoms do not sound cardiac in nature. However, given the episode of significant hypertension, I would like to obtain an echocardiogram to evaluate for signs of undiagnosed longstanding hypertension i.e. left ventricular hypertrophy In addition, given her alcohol use, I explained the direct toxic effect on the heart. The echocardiogram will allow us to evaluate for any signs of cardiomyopathy If the echocardiogram is within normal limits, I do not believe she needs further cardiac testing at this juncture I recommended she check her blood pressure at home 2 or 3 times a week and keep a log to bring into her future physician visits I would strongly recommend decreasing if not completely discontinuing alcohol use She is to discuss with her primary care physician treatment for anxiety that may be secondary to the current grieving process I will see her after her echocardiogram has been completed Tasha Walter MD, MPH, FACC, [facility], [facility] Interventional Cardiology Pager Email: [email or web address] 03-28-2025 History of Present illness Narrative Images from the original note were not included. Denia Al 1960 Denia Al is a 64 y.o. female presents with chief complaint of 2 1/2 poy Rt. lumpectomy (Mamms due in December) HPI: HPI Denia is 2 1/2 yrs post Rt. Lumpectomy, her mamm's are due in December, she is dong well, no breast issues. SUBJECTIVE: MEDICATIONS: ALLERGIES Current Outpatient Medications Medication Instructions anastrozole (ARIMIDEX) 1 mg, Daily Ascorbic Acid (vitamin C) 1000 MG tablet Every 24 hours calcium carbonate (Os-Satya) 1250 (500 Ca) MG tablet Every 24 hours cholecalciferol (Vitamin D3) 25 MCG (1000 UT) tablet Every 24 hours docusate sodium (Colace) 100 MG capsule take 1 capsule by mouth every morning and BEFORE BEDTIME meloxicam (MOBIC) 15 mg, Oral, Daily Allergies Allergen Reactions Penicillin G Unknown PAST MEDICAL HISTORY: SOCIAL HISTORY SURGICAL HISTORY: Past Medical History: Diagnosis Date Acute tonsillitis At low risk for fall Breast cancer ([facility]/HCC) [facility] ER/UT + Her2 neg Genetic testing negative Measles Overweight (BMI 25.0-29.9) Social History Tobacco Use Smoking status: Former Current packs/day: 0.00 Average packs/day: 0.5 packs/day for 30.0 years (15.0 ttl pk-yrs) Types: Cigarettes Start date: 04/12/1992 Quit date: 04/12/2022 Years since quittin.5 Smokeless tobacco: Never Tobacco comments: Last smoked [...] not bruise/bleed easily. OBJECTIVE: Visit Vitals BP 130/85 Ht 5' 5 Wt 166 lb BMI 27.62 kg/m Smoking Status Former BSA 1.86 m Physical Exam Exam conducted with a sales enablement consultant present. HENT: Head: Normocephalic. Cardiovascular: Rate and Rhythm: Normal rate and regular rhythm. Pulmonary: Effort: Pulmonary effort is normal. Breath sounds: Normal breath sounds. Chest: Comments: Bilateral supraclavicular, infraclavicular, bicipital and axillary lymph nodes were found to be normal. Each breast was examined in the sitting and supine position, there was no evidence of masses, dimpling or discharge in either breast. The right breast scar is dense but without masses, some pulling of the nipple tot he 1:00 direction Abdominal: General: Abdomen is flat. Bowel sounds are normal. Palpations: Abdomen is soft. Skin: General: Skin is warm and dry. Neurological: Mental Status: She is alert. ASSESSMENT AND PLAN: Assessment/Plan Problem List Items Addressed This Visit Malignant neoplasm of upper-inner quadrant of right breast in female, estrogen receptor positive (CMS/HCC) - Primary Denia is doing well, no breast issues. Her mamm's are due in December. I'll see her in 6 months for recheck documented in this encounter [facility] 08-11-2024 History of Present illness Narrative Patient: Denia Al : 1960 [...] At low risk for fall Breast cancer ([facility]/HCC) [facility] ER/UT + Her2 neg Genetic testing negative Measles [...] ORTHO: Minimal pain on palpation to the [id number] toe nail ASSESSMENT 14 d s/p permanent [...] Bandar Espinosa DPM documented in this encounter [facility] 08-01-2024 History of Present illness Narrative Associated Problem(s): Ductal carcinoma of right breast (CMS/HCC) Follow with oncology. Associated Problem(s): Arthralgia Pain stable and continue mobic. If worsens would need to repeat labs and refer to rheum. Images from the original note were not included. Subjective Patient ID: Denia lA is a 64 y.o. female who presents [...] Orders Lipid panel documented in this encounter [facility] 07-28-2024 History of Present illness Narrative Patient: Denia Al : 1960 [...] risk for fall Breast cancer (CMS/HCC) [facility] ER/UT + Her2 neg Genetic testing negative Measles [...] Bandar Espinosa DPM documented in this encounter [facility] 04-16-2023 Progress note Note Date/Time April 16, 2023 12:44pm [place] [address] Hem/Onc Follow Up Note - OP Signed Patient: Denia Al MR#: [id number] : 1960 Acct:[id number] Age/Sex: 62 / F Type: REG RCR [...] She had follow up CT scan of [facility] abdomen/pelvis done at [facility] yesterday. This was done to evaluate her post operatively after large, non malignant adnexal mass was removed on 01/21/2023 at [facility]. Denies weight loss, lymphadenopathy, chest pain, SOB, cough, breast changes. As previously noted, we check RF and CCP antibody - whichwas negative; however, her CLEVLEAND levels returned abnormal with a relatively high [...] 13 cm. She was urgently transferred to [facility] and underwent total hysterectomy, bilateral [...] daily. OK for 3 month f/u with [facility] and 6 month f/u with me, sooner [...] 50mm, margins negative for carcinoma, ER 95%, UT 95%, Her2 1+ by IHC, negative. 2 sentinel lymph nodes negative for involvement by tumor. pT2 pN0 Mx. Interestingly, original pathology was invasive ductal carcinoma (lumpectomy final pathology invasive lobular carcinoma). --No residual fullness or pain at surgical site. Discussed Oncotype Dx--will send pathology for testing and followup in 2 weeks. Moderate complexity 35 minute followup visit. 02/07/2022: Phone followup today to discuss [facility] tumor board discussion forplan with Dr. Magana for invasive ductal carcinoma of right breast. I contacted patient today after discussion in [facility] Tumor Board this am. Right axillary ultrasound [...] ductal carcinoma (provisional grade 2) ER 95%, UT 95%, Her-2 equivocal IHC 1+ with equivocal [...] ovarian or other cancers. I reviewed her [facility] mammography 12/25/21 and ultrasound 01/01/2022 reports. Breast mass is about 3.6cm in greatest dimension on US (3.8 cm on mammogram). US guided breast biopsy on 01/01/2022 revealed invasive ductal carcinoma (provisional grade 2) ER 95%, UT 95%, Her-2 equivocal IHC 1+ with equivocal [...] week, I will discuss her case at [facility] tumor board 02/03/2022 then coordinate phone followup to discuss multidisciplinary planof care. DIAGNOSIS: New diagnosis right upper inner quadrant breast cancer 3.6cm primary by US (clinical T2 Nx Mx) --01/01/2022 biopsy: invasive ductal carcinoma (provisional grade 2) ER 95%, UT 95%, Her-2 equivocal IHC 1+ with equivocal FISH (HER2/CEP 17 1.4; Her2 copy number 4.0). --02/18/2022 lumpectomy with sentinel lymph node biopsy: Invasive Lobular Carcinoma, [place] histologic score 8/9 (score 3), size 50mm, margins negative for carcinoma, ER 95%, UT 95%, Her2 1+ by IHC, negative. 2 [...] for environmental allergies and food allergies. [facility] - Medical History Medical History: Medical History [...] 50mm, margins negative for carcinoma, ER 95%, UT 95%, Her2 1+ by IHC, negative. 2 [...] invasive ductal carcinoma (provisional grade 2)ER 95%, UT 95%, Her-2 equivocal IHC 1+ with equivocal [...] week, I will discuss her case at [facility] tumor board 02/03/2022 then coordinate phone followup to discuss multidisciplinary plan of care. High complexity visit--60 min face to face, 30 min to review outside records andcoordinate tumor board discussion of plan. 03/14/2022: Here for followup after right breast lumpectomy/sentinel lymph node on 02/18/2022. She had evacuation of post op hematoma on 03/07/2022. We reviewedpathology showing Invasive Lobular Carcinoma, [place] histologic score 8/9 (score 3), size 50mm, margins negative for carcinoma, ER 95%, UT 95%, [facility], [facility]. 2 sentinel lymph nodes negative for involvement by tumor. pT2 pN0 Mx. ----Today we discussed Oncotype Dx testing due to high grade ER+, UT+, Her2 negative cancer. She understands that if [...] in 2 years (03/2024). Next f/u with [facility] as well as Dr. Magana for surveillance. [...] 13 cm. She was urgently transferred to [facility] and underwent total hysterectomy, bilateral [...] and bilateral salpingo-oophorectomy on 01/21/2023 at the [facility]. Pathology returned consistent with benign, [...] and bilateral salpingo-oophorectomy on 01/21/2023 at the [facility]. Pathology returned consistent with benign, [...] for coordination of care (as documented) and [id number] counseling of patient and/or family. Dictated By: Ciera Vitale APRN DD/ [id number] Signed By: <Electronically signed by ALEX Vitale> 04/16/23 4520 [facility] Work Phone: 1(705) 854-252508-21-2023 Progress note Author Ciera Vitale [facility] March 16, 2023 3:20pm Note Date/Time March 12, 2023 1: 58pm [facility] at [address] [address] Hem/Onc Follow Up Note - OP Signed with [place] Patient: Denia Al MR#: [id number] : 1960 Acct:[id number] Age/Sex: 62 / F Type: REG RCR [...] of polyarthralgia/myalgias and synovitis. Will refer patientto [facility] - and she was informed of [...] 13 cm. She was urgently transferred to [facility] and underwent total hysterectomy, bilateral [...] daily. OK for 3 month f/u with [facility] and 6 month f/u with me, sooner [...] reviewed pathology results showing Invasive Lobular Carcinoma, [place] histologic score 8/9 (score 3), size 50mm, margins negative for carcinoma, ER 95%, UT 95%, Her2 1+ by IHC, negative. 2 sentinel lymph nodes negative for involvement by tumor. pT2 pN0 Mx. Interestingly, original pathology was invasive ductal carcinoma (lumpectomy final pathology invasive lobular carcinoma). --No residual fullness or pain at surgical site. Discussed Oncotype Dx--will send pathology for testing and followup in 2 weeks. Moderate complexity 35 minute followup visit. 02/07/2022: Phone followup today to discuss [facility] tumor board discussion forplan with Dr. Magana for invasive ductal carcinoma of right breast. I contacted patient today after discussion in [facility] Tumor Board this am. Right axillary ultrasound [...] ductal carcinoma (provisional grade 2) ER 95%, UT 95%, Her-2 equivocal IHC 1+ with equivocal [...] ovarian or other cancers. I reviewed her [facility] mammography 12/25/21 and ultrasound 01/01/2022 reports. Breast mass is about 3.6cm in greatest dimension on US (3.8 cm on mammogram). US guided breast biopsy on 01/01/2022 revealed invasive ductal carcinoma (provisional grade 2) ER 95%, UT 95%, Her-2 equivocal IHC 1+ with equivocal [...] week, I will discuss her case at [facility] tumor board 02/03/2022 then coordinate phone followup to discuss multidisciplinary planof care. DIAGNOSIS: New diagnosis right upper inner quadrant breast cancer 3.6cm primary by US (clinical T2 Nx Mx) --01/01/2022 biopsy: invasive ductal carcinoma (provisional grade 2) ER 95%, UT 95%, Her-2 equivocal IHC 1+ with equivocal FISH (HER2/CEP 17 1.4; Her2 copy number 4.0). --02/18/2022 lumpectomy with sentinel lymph node biopsy: Invasive Lobular Carcinoma, [place] histologic score 8/9 (score 3), size 50mm, margins negative for carcinoma, ER 95%, UT 95%, Her2 1+ by IHC, negative. 2 [...] for environmental allergies and food allergies. [facility] - Medical History Medical History: Medical History [...] 50mm, margins negative for carcinoma, ER 95%, UT 95%, Her2 1+ by IHC, negative. 2 [...] invasive ductal carcinoma (provisional grade 2)ER 95%, UT 95%, Her-2 equivocal IHC 1+ with equivocal [...] week, I will discuss her case at [facility] tumor [facility] 02/03/2022 then coordinate phone followup [...] 50mm, margins negative for carcinoma, ER 95%, UT 95%, [facility], [facility]. 2 sentinel lymph nodes negative for involvement by tumor. pT2 pN0 Mx. ----Today we discussed Oncotype Dx testing due to high grade ER+, UT+, Her2 negative cancer. She understands that if [...] in 2 years (03/2024). Next f/u with [facility] as well as Dr. Magana for surveillance. [...] 13 cm. She was urgently transferred to [facility] and underwent total hysterectomy, bilateral [...] and bilateral salpingo-oophorectomy on 01/21/2023 at the [facility]. Pathology returned consistent with benign, [...] and bilateral salpingo-oophorectomy on 01/21/2023 at the [facility]. Pathology returned consistent with benign, [...] for coordination of care (as documented) and [id number] counseling of patient and/or family. Dictated By: Ciera Vitale APRN DD/ [id number] Signed By: <Electronically signed by ALEX Vitale> 03/12/23 1404 [facility] Work Phone: 1(839) 998-222207-27-2023 Progress note Author Ciera Vitale [facility] February 19, 2023 4:56pm Note Date/Time February 19, 2023 2:51 pm [facility] [place] [id number] Hem/Onc Follow Up Note - OP Signed Patient: Denia Al MR#: [id number] : 1960 Acct:[id number] Age/Sex: 62 / F Type: REG RCR [...] 13 cm. She was urgently transferred to [facility] and underwent total hysterectomy, bilateral [...] daily. OK for 3 month f/u with [facility] and 6 month f/u with me, sooner [...] 50mm, margins negative for carcinoma, ER 95%, UT 95%, Her2 1+ by IHC, negative. 2 sentinel lymph nodes negative for involvement by tumor. pT2 pN0 Mx. Interestingly, original pathology was invasive ductal carcinoma (lumpectomy final pathology invasive lobular carcinoma). --No residual fullness or pain at surgical site. Discussed Oncotype Dx--will send pathology for testing and followup in 2 weeks. Moderate complexity 35 minute followup visit. 02/07/2022: Phone followup today [facility] discussion forplan with Dr. Magana for invasive ductal carcinoma of right breast. I contacted patient today after discussion in [facility] this am. Right axillary ultrasound [...] ductal carcinoma (provisional grade 2) ER 95%, UT 95%, Her-2 equivocal IHC 1+ with equivocal [...] ovarian or other cancers. I reviewed her [facility] mammography 12/25/21 and ultrasound 01/01/2022 reports. Breast mass is about 3.6cm in greatest dimension on US (3.8 cm on mammogram). US guided breast biopsy on 01/01/2022 revealed invasive ductal carcinoma (provisional grade 2) ER 95%, UT 95%, Her-2 equivocal IHC 1+ with equivocal [...] week, I will discuss her case at [facility] 02/03/2022 then coordinate phone followup to discuss multidisciplinary planof care. DIAGNOSIS: New diagnosis right upper inner quadrant breast cancer 3.6cm primary by US (clinical T2 Nx Mx) --01/01/2022 biopsy: invasive ductal carcinoma (provisional grade 2) ER 95%, UT 95%, Her-2 equivocal IHC 1+ with equivocal FISH (HER2/CEP 17 1.4; Her2 copy number 4.0). --02/18/2022 lumpectomy with sentinel lymph node biopsy: Invasive Lobular Carcinoma, [place] histologic score 8/9 (score 3), size 50mm, margins negative for carcinoma, ER 95%, UT 95%, Her2 1+ by IHC, negative. 2 [...] for environmental allergies and food allergies. [facility] - Medical History Medical History: Medical History [...] Other Additional comments: Patient: Denia Al MR#: [id number] : 1960 Acct:[id number] Age/Sex: 62 / F ADM Date: 3 Loc: XT Room: Type: [facility] Attending Dr: Lisa Hennessy MD Copies to: [...] lymph node biopsy now Invasive Lobular Carcinoma, [place] histologic score 8/9 (score 3), size 50mm, margins negative for carcinoma, ER 95%, UT 95%, Her2 1+ by IHC, negative. 2 [...] invasive ductal carcinoma (provisional grade 2)ER 95%, UT 95%, Her-2 equivocal IHC 1+ with equivocal [...] week, I will discuss her case [facility] 02/03/2022 then coordinate phone followup [...] 50mm, margins negative for carcinoma, ER 95%, UT 95%, Her2 1+ byIHC, negative. 2 sentinel lymph nodes negative for involvement by tumor. pT2 pN0 Mx. ----Today we discussed Oncotype Dx testing due to high grade ER+, UT+, Her2 negative cancer. She understands that if [...] in 2 years (03/2024). Next f/u with [facility] as well as Dr. Magana for surveillance. [...] 13 cm. She was urgently transferred to [facility] and underwent total hysterectomy, bilateral [...] and bilateral salpingo-oophorectomy on 01/21/2023 at the [facility]. 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 Plan: Hold anastrazole x 2 weeks; restart thereafter. Notify clinic sooner than next scheduled appointment if she is having increased issues, side effects. (4) Adnexal mass Diagnosed with large right adnexal mass (~ 13 cm) ; status post total hysterectomy and bilateral salpingo-oophorectomy on 01/21/2023 at the [facility]. Pathology returned consistent with benign, [...] for coordination of care (as documented) and bdtv-af-fsom counseling of patient and/or family. Dictated By: Ciera Vitale APRN DD/ [id number] Signed By: <Electronically signed by ALEX Vitale> 02/19/23 1656 [facility] Work Phone: 1([phone]) 562-171606-08-2023 Progress note Author Lisa Hennessy [facility] January 01, 2023 8:42am Note Date/Time December 31, 2022 1:28p m [facility] [place] [address] Hem/Onc Follow Up Note - OP Signed Patient: Denia Al MR#: [id number] : 1960 Acct:[id number] Age/Sex: 62 / F Type: REG RCR [...] exam or new areas of pain. 06/11/2022: Denai completed radiation therapy 3 weeks ago with [...] daily. OK for 3 month f/u with [facility] and 6 month f/u with me, sooner [...] outer quadrant lumpectomy by Dr. Magana on 7/26/48144 and is here to review pathology results and recommendations for adjuvant therapy. She had to return to OR for evacuation ofa large hematoma in biopsy cavity on 03/05/2022 and continues followup with Dr. Magana. I reviewed pathology results showing Invasive Lobular Carcinoma, [place] histologic score 8/9 (score 3), size 50mm, margins negative for carcinoma, ER 95%, UT 95%, Her2 1+ by IHC, negative. 2 sentinel lymph nodes negative for involvement by tumor. pT2 pN0 Mx. Interestingly, original pathology was invasive ductal carcinoma (lumpectomy final pathology invasive lobular carcinoma). --No residual fullness or pain at surgical site. Discussed Oncotype Dx--will send pathology for testing and followup in 2 weeks. Moderate complexity 35 minute followup visit. 02/07/2022: Phone followup today to discuss [facility] tumor board discussion forplan with Dr. Magana for invasive ductal carcinoma of right breast. I contacted patient today after discussion in [facility] this am. Right axillary ultrasound [...] ductal carcinoma (provisional grade 2) ER 95%, UT 95%, Her-2 equivocal IHC 1+ with equivocal [...] ovarian or other cancers. I reviewed her [facility] mammography 12/25/21 and ultrasound 01/01/2022 reports. Breast mass is about 3.6cm in greatest dimension on US (3.8 cm on mammogram). US guided breast biopsy on 01/01/2022 revealed invasive ductal carcinoma (provisional grade 2) ER 95%, UT 95%, Her-2 equivocal IHC 1+ with equivocal [...] week, I will discuss her case at [facility] tumor [facility] 02/03/2022 then coordinate phone followup to discuss multidisciplinary planof care. High complexity visit--60 min face to face, 30 min to review outside records and coordinate tumor board discussion of plan. DIAGNOSIS: New diagnosis right upper inner quadrant breast cancer 3.6cm primary by US (clinical T2 Nx Mx) --01/01/2022 biopsy: invasive ductal carcinoma (provisional grade 2) ER 95%, UT 95%, Her-2 equivocal IHC 1+ with equivocal FISH (HER2/CEP 17 1.4; Her2 copy number 4.0). --02/18/2022 lumpectomy with sentinel lymph node biopsy: Invasive Lobular Carcinoma, [place] histologic score 8/9 (score 3), size 50mm, margins negative for carcinoma, ER 95%, UT 95%, Her2 1+ by IHC, negative. 2 [...] lymph node biopsy now Invasive Lobular Carcinoma, [place] histologic score 8/9 (score 3), size 50mm, margins negative for carcinoma, ER 95%, UT 95%, Her2 1+ by IHC, negative. 2 [...] invasive ductal carcinoma (provisional grade 2)ER 95%, UT 95%, Her-2 equivocal IHC 1+ with equivocal [...] biopsy is + for cancer, especially if [id number], she should return to consent for neoadjuvant chemotherapy with TCHP. Following her US and biopsy within the next week, I will discuss her case at [facility] 02/03/2022 then coordinate phone followup [...] 50mm, margins negative for carcinoma, ER 95%, UT 95%, Her2 1+ byIHC, negative. 2 sentinel lymph nodes negative for involvement by tumor. pT2 pN0 Mx. ----Today we discussed Oncotype Dx testing due to high grade ER+, UT+, Her2 negative cancer. She understands that if [...] in 2 years (03/2024). Next f/u with [facility] as well as Dr. Magana for surveillance. [...] for coordination of care (as documented) and vqcd-uz-[id number] counseling of patient and/or family. Dictated By: Lisa Hennessy MD DD/ [id number] Signed By: <Electronically signed by MD Lisa Hennessy> 01/01/23 0842 [facility] Work Phone: 1(485) 904-947502-16-2023 Progress note Author Ciera Vitale [facility] September 11, 2022 4:51pm Note Date/Time September 11, 2022 4:47pm [facility] [place] [address] Hem/Onc Follow Up Note - OP Signed Patient: Denia Al MR#: [id number] : 1960 Acct:[id number] Age/Sex: 62 / F Type: REG RCR [...] daily. OK for 3 month f/u with [facility] and 6 month f/u with me, sooner [...] 50mm, margins negative for carcinoma, ER 95%, UT 95%, Her2 1+ by IHC, negative. 2 sentinel lymph nodes negative for involvement by tumor. pT2 pN0 Mx. Interestingly, original pathology was invasive ductal carcinoma (lumpectomy final pathology invasive lobular carcinoma). --No residual fullness or pain at surgical site. Discussed Oncotype Dx--will send pathology for testing and followup in 2 weeks. Moderate complexity 35 minute followup visit. 02/07/2022: Phone followup today to discuss [facility] tumor board discussion forplan with Dr. Magana for invasive ductal carcinoma of right breast. I contacted patient today after discussion in [facility] this am. Right axillary ultrasound [...] ductal carcinoma (provisional grade 2) ER 95%, UT 95%, Her-2 equivocal IHC 1+ with equivocal [...] ovarian or other cancers. I reviewed her [facility] mammography 12/25/21 and ultrasound 01/01/2022 reports. Breast mass is about 3.6cm in greatest dimension on US (3.8 cm on mammogram). US guided breast biopsy on 01/01/2022 revealed invasive ductal carcinoma (provisional grade 2) ER 95%, UT 95%, Her-2 equivocal IHC 1+ with equivocal [...] week, I will discuss her case at [facility] tumor [facility] 02/03/2022 then coordinate phone followup to discuss multidisciplinary planof care. High complexity visit--60 min face to face, 30 min to review outside records and coordinate tumor board discussion of plan. DIAGNOSIS: New diagnosis right upper inner quadrant breast cancer 3.6cm primary by US (clinical T2 Nx Mx) --01/01/2022 biopsy: invasive ductal carcinoma (provisional grade 2) ER 95%, UT 95%, Her-2 equivocal IHC 1+ with equivocal FISH (HER2/CEP 17 1.4; Her2 copy number 4.0). --02/18/2022 lumpectomy with sentinel lymph node biopsy: Invasive Lobular Carcinoma, [place] histologic score 8/9 (score 3), size 50mm, margins negative for carcinoma, ER 95%, UT 95%, Her2 1+ by IHC, negative. 2 [...] for environmental allergies and food allergies. [facility] - Medical History Medical History: Medical History [...] 50mm, margins negative for carcinoma, ER 95%, UT 95%, Her2 1+ by IHC, negative. 2 [...] invasive ductal carcinoma (provisional grade 2)ER 95%, UT 95%, Her-2 equivocal IHC 1+ with equivocal [...] week, I will discuss her case at [facility] 02/03/2022 then coordinate phone followup to discuss multidisciplinary plan of care. High complexity visit--60 min face to face, 30 min to review outside records andcoordinate tumor board discussion of plan. 03/14/2022: Here for followup after right breast lumpectomy/sentinel lymph node on 02/18/2022. She had evacuation of post op hematoma on 03/07/2022. We reviewedpathology showing Invasive Lobular Carcinoma, [place] histologic score 8/9 (score 3), size 50mm, margins negative for carcinoma, ER 95%, UT 95%, [facility], [facility]. 2 sentinel lymph nodes negative for involvement by tumor. pT2 pN0 Mx. ----Today we discussed Oncotype Dx testing due to high grade ER+, UT+, Her2 negative cancer. She understands that if [...] in 2 years (03/2024). Next f/u with [facility] as well as Dr. Magana for surveillance. [...] for coordination of care (as documented) and gihh-wg-gurq counseling of patient and/or family. Dictated By: Ciera Vitale APRN DD/ [id number] Signed By: <Electronically signed by ALEX Vitale> 09/11/22 165 [facility] Work Phone: [phone]) 910-116711-23-2022 Progress note Author Kylee Lindsay [facility] June 18, 2022 9:21am Note Date/Time June 18, 2022 8:35am [facility] [place] [address] Rad Onc Follow Up Note - OP Signed Patient: Denia Al MR#: [id number] : 1960 Acct:[id number] Age/Sex: 62 / F Type: REG RCR [...] upper outer quadrant of the right breast, ER/UT positive HER2 negative. We reviewed her pathology [...] confirmed invasive ductal carcinoma, provisional grade 2, ER/UT positive with HER2 equivocal IHC 1+ with equivocalFISH. HER2 copy #4. Clinical stage T2 NX MX. February 07, 2022 right axillary ultrasound was negative for adenopathy. Since [id number] indeterminate node-negative she was recommended for upfront surgery. January 16, 2022 [facility] testing returned negative February 18, 2022 patient proceeded to right breast lumpectomy with sentinel lymph node biopsy. Final pathology confirmed invasive lobular carcinoma, grade 3, 5 cm in size with margins negative. Closest margin was 0.5 mm anteriorly. There was no LVSI identified. There was associated LCIS. ER/UT +2 sentinel nodes negative for tumor. pT2N0 [...] signed by Kylee Lindsay MD> 06/18/22 0921 [facility] Work Phone: [phone]) 399-781411-16-2022 Progress note Author Lisa Hennessy [facility] June 11, 2022 9:37pm Note Date/Time June 11, 2022 1:19pm [facility] [place] [address] Hem/Onc Follow Up Note - OP Signed Patient: Denia Al MR#: [id number] : 1960 Acct:[id number] Age/Sex: 62 / F Type: REG RCR [...] daily. OK for 3 month f/u with [facility] and 6 month f/u with me, sooner [...] 50mm, margins negative for carcinoma, ER 95%, UT 95%, Her2 1+ by IHC, negative. 2 sentinel lymph nodes negative for involvement by tumor. pT2 pN0 Mx. Interestingly, original pathology was invasive ductal carcinoma (lumpectomy final pathology invasive lobular carcinoma). --No residual fullness or pain at surgical site. Discussed Oncotype Dx--will send pathology for testing and followup in 2 weeks. Moderate complexity 35 minute followup visit. 02/07/2022: Phone followup today to discuss [facility] tumor board discussion forplan with Dr. Magana for invasive ductal carcinoma of right breast. I contacted patient today after discussion in [facility] this am. Right axillary ultrasound [...] ductal carcinoma (provisional grade 2) ER 95%, UT 95%, Her-2 equivocal IHC 1+ with equivocal [...] ovarian or other cancers. I reviewed her [facility] mammography 12/25/21 and ultrasound 01/01/2022 reports. Breast mass is about 3.6cm in greatest dimension on US (3.8 cm on mammogram). US guided breast biopsy on 01/01/2022 revealed invasive ductal carcinoma (provisional grade 2) ER 95%, UT 95%, Her-2 equivocal IHC 1+ with equivocal [...] week, I will discuss her case at [facility] tumor board 02/03/2022 then coordinate phone followup to discuss multidisciplinary planof care. High complexity visit--60 min face to face, 30 min to review outside records and coordinate tumor board discussion of plan. DIAGNOSIS: New diagnosis right upper inner quadrant breast cancer 3.6cm primary by US (clinical T2 Nx Mx) --01/01/2022 biopsy: invasive ductal carcinoma (provisional grade 2) ER 95%, UT 95%, Her-2 equivocal IHC 1+ with equivocal FISH (HER2/CEP 17 1.4; Her2 copy number 4.0). --02/18/2022 lumpectomy with sentinel lymph node biopsy: Invasive Lobular Carcinoma, [place] histologic score 8/9 (score 3), size 50mm, margins negative for carcinoma, ER 95%, UT 95%, Her2 1+ by IHC, negative. 2 [...] 50mm, margins negative for carcinoma, ER 95%, UT 95%, Her2 1+ by IHC, negative. 2 [...] invasive ductal carcinoma (provisional grade 2)ER 95%, UT 95%, Her-2 equivocal IHC 1+ with equivocal [...] week, I will discuss her case at [facility] 02/03/2022 then coordinate phone followup [...] 50mm, margins negative for carcinoma, ER 95%, UT 95%, [facility], [facility]. 2 sentinel lymph nodes negative for involvement by tumor. pT2 pN0 Mx. ----Today we discussed Oncotype Dx testing due to high grade ER+, UT+, Her2 negative cancer. She understands that if [...] in 2 years (03/2024). Next f/u with [facility] as well as Dr. Magana for surveillance--moderate [...] and review of surveillance plan 30- minute dhgm-[id number] visit. - Chemo Plan Chemo Plan (Dose, [...] for coordination of care (as documented) and cmqf-nj-jlea counseling of patient and/or family. Dictated By: Lisa Hennessy MD DD/ Signed By: <Electronically signed by MD Lisa Hennessy> 06/11/222136 [facility] Work Phone: 1(323) 133-656809-15-2022 Consult note Author Kylee Lindsay [facility] April 10, 2022 1:34pm Note Date/Time April 10, 2022 10:31am [facility] [place] [address] Rad Onc Consult Note - OP Signed Patient: Denia Al MR#: [id number] : 1960 Acct:[id number] Age/Sex: 61 / F Type: REG RCR [...] upper outer quadrant of the right breast, ER/UT positive HER2 negative. We reviewed her pathology [...] confirmed invasive ductal carcinoma, provisional grade 2, ER/UT positive with HER2 equivocal IHC 1+ with equivocal FISH. HER2 copy #4. Clinical stage T2 NX MX. February 07, 2022 right axillary ultrasound was negative for adenopathy. Since BSM4bee indeterminate node-negative she was recommended for upfront surgery. January 16, 2022 Inv[employer]ae testing returned negative February 18, 2022 patient proceeded to right breast lumpectomy with sentinel lymph node biopsy. Final pathology confirmed invasive lobular carcinoma, grade 3, 5 cm in size with margins negative. Closest margin was 0.5 mm anteriorly. There was no LVSI identified. There was associated LCIS. ER/UT +2 sentinel nodes negative for tumor. pT2N0 repeat HER2 IHC was negative. February 2022 Oncotype score returned 18 with no chemotherapy recommended. Today patient is overall doing well and has recovered from her surgery. She hasno new breast related complaints. She is planned for endocrine therapy. [facility] - Medical History Medical History: Medical History [...] Kylee Lindsay MD> 04/10/22 1334 [facility] Work Phone: [phone]) [phone] Progress note Author Lisa Hennessy [facility] April 02, 2022 10:46am Note Date/Time April 02, 2022 8:53am [facility] [place] [id number] Hem/Onc Follow Up Note - OP Signed Patient: Denia Al MR#: [id number] : 1960 Acct:[id number] Age/Sex: 61 / F Type: REG RCR [...] reviewed pathology results showing Invasive Lobular Carcinoma, [place] histologic score 8/9 (score 3), size 50mm, margins negative for carcinoma, ER 95%, UT 95%, Her2 1+ by IHC, negative. 2 sentinel lymph nodes negative for involvement by tumor. pT2 pN0 Mx. Interestingly, original pathology was invasive ductal carcinoma (lumpectomy final pathology invasive lobular carcinoma). --No residual fullness or pain at surgical site. Discussed Oncotype Dx--will send pathology for testing and followup in 2 weeks. Moderate complexity 35 minute followup visit. 02/07/2022: Phone followup today to discuss [facility] tumor board discussion forplan with Dr. Magana for invasive ductal carcinoma of right breast. I contacted patient today after discussion in [facility] this am. Right axillary ultrasound [...] ductal carcinoma (provisional grade 2) ER 95%, UT 95%, Her-2 equivocal IHC 1+ with equivocal [...] ovarian or other cancers. I reviewed her [facility] mammography 12/25/21 and ultrasound 01/01/2022 reports. Breast mass is about 3.6cm in greatest dimension on US (3.8 cm on mammogram). US guided breast biopsy on 01/01/2022 revealed invasive ductal carcinoma (provisional grade 2) ER 95%, UT 95%, Her-2 equivocal IHC 1+ with equivocal [...] week, I will discuss her case at [facility] 02/03/2022 then coordinate phone followup to discuss multidisciplinary planof care. High complexity visit--60 min face to face, 30 min to review outside records and coordinate tumor board discussion of plan. DIAGNOSIS: New diagnosis right upper inner quadrant breast cancer 3.6cm primary by US (clinical T2 Nx Mx) --01/01/2022 biopsy: invasive ductal carcinoma (provisional grade 2) ER 95%, UT 95%, Her-2 equivocal IHC 1+ with equivocal FISH (HER2/CEP 17 1.4; Her2 copy number 4.0). --02/18/2022 lumpectomy with sentinel lymph node biopsy: Invasive Lobular Carcinoma, [place] histologic score 8/9 (score 3), size 50mm, margins negative for carcinoma, ER 95%, UT 95%, Her2 1+ by IHC, negative. 2 [...] 50mm, margins negative for carcinoma, ER 95%, UT 95%, Her2 1+ by IHC, negative. 2 [...] ductal carcinoma (provisional grade 2) ER 95%, UT 95%, Her-2 equivocal IHC 1+ with equivocal [...] week, I will discuss her case at [facility] 02/03/2022 then coordinate phone followup [...] 50mm, margins negative for carcinoma, ER 95%, UT 95%, [facility], [facility]. 2 sentinel lymph nodes negative for involvement by tumor. pT2 pN0 Mx. ----Today we discussed Oncotype Dx testing due to high grade ER+, UT+, Her2 negative cancer. She understands that if [...] and review of adjuvant therapy options 30-minute qcrk-hw-ntmp visit. - Chemo Plan Chemo Plan (Dose, Rate, Freq): Oncotype Dx testing to determine plan for adjuvant therapy. Goal of Treatment: Curative - Time with Patient Time Spent with Patient (Follow Up Visit): 35 minutes Coordination of Care & Counseling Time: Greater than 50% of time spent with patient was for coordination of care (as documented) and ypya-uo-kxyz counseling of patient and/or family. Dictated By: Lisa Hennessy MD DD/ [id number] Signed By: <Electronically signed by MD Lisa Hennessy> 04/02/22 1046 [facility] Work Phone: 1(434) 724-746808-21-2022 Progress note Author Lisa Hennessy [facility] March 16, 2022 2:02pm Note Date/Time March 15, 2022 9: 18pm [facility] [place] [address] Hem/Onc Follow Up Note - OP Signed Patient: Denia Al MR#: [id number] : 1960 Acct:[id number] Age/Sex: 61 / F Type: REG RCR [...] 50mm, margins negative for carcinoma, ER 95%, UT 95%, Her2 1+ by IHC, negative. 2 sentinel lymph nodes negative for involvement by tumor. pT2 pN0 Mx. Interestingly, original pathology was invasive ductal carcinoma (lumpectomy final pathology invasive lobular carcinoma). --No residual fullness or pain at surgical site. Discussed Oncotype Dx--will send pathology for testing and followup in 2 weeks. Moderate complexity 35 minute followup visit. 02/07/2022: Phone followup today to discuss [facility] tumor board discussion forplan with Dr. Magana for invasive ductal carcinoma of right breast. I contacted patient today after discussion in [facility] this am. Right axillary ultrasound [...] ductal carcinoma (provisional grade 2) ER 95%, UT 95%, Her-2 equivocal IHC 1+ with equivocal [...] ovarian or other cancers. I reviewed her [facility] mammography 12/25/21 and ultrasound 01/01/2022 reports. Breast mass is about 3.6cm in greatest dimension on US (3.8 cm on mammogram). US guided breast biopsy on 01/01/2022 revealed invasive ductal carcinoma (provisional grade 2) ER 95%, UT 95%, Her-2 equivocal IHC 1+ with equivocal [...] week, I will discuss her case at [facility] 02/03/2022 then coordinate phone followup to discuss multidisciplinary planof care. High complexity visit--60 min face to face, 30 min to review outside records and coordinate tumor board discussion of plan. DIAGNOSIS: New diagnosis right upper inner quadrant breast cancer 3.6cm primary by US (clinical T2 Nx Mx) --01/01/2022 biopsy: invasive ductal carcinoma (provisional grade 2) ER 95%, UT 95%, Her-2 equivocal IHC 1+ with equivocal FISH (HER2/CEP 17 1.4; Her2 copy number 4.0). --02/18/2022 lumpectomy with sentinel lymph node biopsy: Invasive Lobular Carcinoma, [place] histologic score 8/9 (score 3), size 50mm, margins negative for carcinoma, ER 95%, UT 95%, Her2 1+ by IHC, negative. 2 [...] for environmental allergies and food allergies. [facility] - History Attestation statement: The following information [...] 50mm, margins negative for carcinoma, ER 95%, UT 95%, Her2 1+ by IHC, negative. 2 [...] ductal carcinoma (provisional grade 2) ER 95%, UT 95%, Her-2 equivocal IHC 1+ with equivocal [...] week, I will [facility]2022 then coordinate phone followup [...] 50mm, margins negative for carcinoma, ER 95%, UT 95%, [facility], [facility]. 2 sentinel lymph nodes negative for involvement by tumor. pT2 pN0 Mx. ----Today we discussed Oncotype Dx testing due to high grade ER+, UT+, Her2 negative cancer. She understands that if [...] for coordination of care (as documented) and jbza-[id number] counseling of patient and/or family. Dictated By: Lisa Hennessy MD DD/ 16 Signed By: <Electronically signed by MD Lisa Hennessy> 03/16/22 1402 [facility] Work Phone: 1(443) 769-726108-21-2022 Progress note Author Lisa Hennessy [facility] March 16, 2022 2:02pm Note Date/Time March 15, 2022 9: 18pm [facility] at [address] [address] Hem/Onc Follow Up Note - OP Signed Patient: Denia Al MR#: [id number] : 1960 Acct:[id number] Age/Sex: 61 / F Type: REG RCR [...] 50mm, margins negative for carcinoma, ER 95%, UT 95%, Her2 1+ by IHC, negative. 2 sentinel lymph nodes negative for involvement by tumor. pT2 pN0 Mx. Interestingly, original pathology was invasive ductal carcinoma (lumpectomy final pathology invasive lobular carcinoma). --No residual fullness or pain at surgical site. Discussed Oncotype Dx--will send pathology for testing and followup in 2 weeks. Moderate complexity 35 minute followup visit. 02/07/2022: Phone followup today to discuss [facility] tumor board discussion forplan with Dr. Magana for invasive ductal carcinoma of right breast. I contacted patient today after discussion in [facility] Board this am. Right axillary ultrasound [...] ductal carcinoma (provisional grade 2) ER 95%, UT 95%, Her-2 equivocal IHC 1+ with equivocal [...] ovarian or other cancers. I reviewed her [facility] mammography 12/25/21 and ultrasound 01/01/2022 reports. Breast mass is about 3.6cm in greatest dimension on US (3.8 cm on mammogram). US guided breast biopsy on 01/01/2022 revealed invasive ductal carcinoma (provisional grade 2) ER 95%, UT 95%, Her-2 equivocal IHC 1+ with equivocal [...] week, I will discuss her case at [facility] 02/03/2022 then coordinate phone followup to discuss multidisciplinary planof care. High complexity visit--60 min face to face, 30 min to review outside records and coordinate tumor board discussion of plan. DIAGNOSIS: New diagnosis right upper inner quadrant breast cancer 3.6cm primary by US (clinical T2 Nx Mx) --01/01/2022 biopsy: invasive ductal carcinoma (provisional grade 2) ER 95%, UT 95%, Her-2 equivocal IHC 1+ with equivocal FISH (HER2/CEP 17 1.4; Her2 copy number 4.0). --02/18/2022 lumpectomy with sentinel lymph node biopsy: Invasive Lobular Carcinoma, [place] histologic score 8/9 (score 3), size 50mm, margins negative for carcinoma, ER 95%, UT 95%, Her2 1+ by IHC, negative. 2 [...] 50mm, margins negative for carcinoma, ER 95%, UT 95%, Her2 1+ by IHC, negative. 2 [...] ductal carcinoma (provisional grade 2) ER 95%, UT 95%, Her-2 equivocal IHC 1+ with equivocal [...] week, I will discuss her case [facility] 02/03/2022 then coordinate phone followup [...] 50mm, margins negative for carcinoma, ER 95%, UT 95%, [facility], negative. 2 sentinel lymph nodes negative for involvement by tumor. pT2 pN0 Mx. ----Today we discussed Oncotype Dx testing due to high grade ER+, UT+, Her2 negative cancer. She understands that if [...] for coordination of care (as documented) and [id number] counseling of patient and/or family. Dictated By: Lisa Hennessy MD DD/ 16 Signed By: <Electronically signed by MD Lisa Hennessy> 03/16/22 1404 [facility] Work Phone: 1(767) 177-509007-07-2022 Consult note Author Lisa Hennessy [facility] January 30, 2022 9:35am Note Date/Time January 29, 2022 1:35p m [facility] [place] [address] Hem/Onc Consult Note - OP Signed Patient: Denia Al MR#: [id number] : 1960 Acct:[id number] Age/Sex: 61 / F Type: REG RCR Copies to: DO Howard Flores MD~ HPI Date/Time of Service: Date of Service: 01/29/2022 Time of Service: 13:34 Referring Provider/PCP: Referring Provider: Howard Schumacher MD PCP: Howard Schumacher MD - History of Present Illness Reason for Consultation: Palpable right breast mass--biopsy in December 2021 shows invasive ductal carcinoma (provisional grade 2) ER 95%, UT 95%, Her-2 equivocal IHC 1+ with equivocal [...] ovarian or other cancers. I reviewed her [facility] mammography 12/25/21 and ultrasound 01/01/2022 reports. Breast mass is about 3.6cm in greatest dimension on US (3.8 cm on mammogram). US guided breast biopsy on 01/01/2022 revealed invasive ductal carcinoma (provisional grade 2) ER 95%, UT 95%, Her-2 equivocal IHC 1+ with equivocal [...] week, I will discuss her case at [facility] 02/03/2022 then coordinate phone followup to discuss multidisciplinary planof care. High complexity visit--60 min face to face, 30 min to review outside records and coordinate tumor board discussion of plan. PMFSH - History Attestation statement: The following [...] ductal carcinoma (provisional grade 2) ER 95%, UT 95%, Her-2 equivocal IHC 1+ with equivocal [...] for review. - Impressions I reviewed her [facility] mammography 12/25/21 and ultrasound 01/01/2022 reports. [...] ductal carcinoma (provisional grade 2) ER 95%, UT 95%, Her-2 equivocal IHC 1+ with equivocal [...] week, I will discuss her case at [facility] 02/03/2022 then coordinate phone followup [...] for coordination of care (as documented) and vhyy-ye-vmoa counseling of patient and/or family. Dictated By: Lisa Hennessy MD DD/ 1330 Signed By: <Electronically signed by MD Lisa Hennessy> 01/30/22 0935 [facility] Work Phone: evaluation note* Diagnosis Onset Date Resolution Status [id number] acute [facility] Work Phone: evaluation note* Diagnosis Onset Date Resolution Status [id number] chronic [facility] Work Phone: evaluation note* Diagnosis Onset Date Resolution Status Encounter for monitoring aromatase inhibitor therapy chronic [id number] chronic Osteopenia chronic Screening for osteoporosis c [facility] Work Phone: evaluation note* Diagnosis Onset Date Resolution Status Adnexal mass acute Aromatase inhibitor-associated arthralgia acute Encounter for monitoring aromatase inhibitor therapy chronic [id number] chronic Osteopenia chronic Screening for osteoporosis c [facility] Work Phone: evaluation noteNo assessment information available [facility] Work Phone: evaluation note* Diagnosis Onset Date Resolution Status Adnexal mass acute Aromatase inhibitor-associated arthralgia acute Encounter for monitoring aromatase inhibitor therapy chronic [id number] chronic Osteopenia chronic Screening for osteoporosis c [facility] Aromatase inhibitor-associated arthralgia acute History of bilateral salpingo-oophorectomy acute Encounter for monitoring aromatase inhibitor therapy chronic [id number] chronic Osteopenia chronic [facility] Work Phone: evaluation note* Diagnosis Malignant neoplasm of upper-inner quadrant [...] tissues of limb [facility] [...] and unspecified hyperlipidemia documented in this encounter [facility]* Diagnosis Arthralgia, unspecified joint- Primary [...] Abscess, toe, left documented in this encounter [facility]* Diagnosis Onset Date Resolution Status [...] 9:13am Osteopenia chronic August 22, 2024 9:13am [facility] Work Phone: Evaluation note* Diagnosis Arthralgia, unspecified [...] blood chemistry [facility] [...] medications Dyslipidemia (CMS/HCC) Other and unspecified hyperlipidemia Malignant neoplasm of upper-inner quadrant of right [...] joint- Primary Ductal carcinoma of right breast (HCC) Encounter for long-term (current) use of medications Encounter for long-term (current) use of other medications Dyslipidemia Other and unspecified hyperlipidemia Pain due to onychomycosis of toenails of both feet- Primary [facility]* Tone Magana, - 04/01/2024 10:15 AM EDT Images from the original note were not included. Denia Al 1960 Denia Al is a 63 y.o. female presents with chief complaint of 2nd poy Rt. lumpectomy (Mamms done in December) HPI: NINOSKA Loza is 2 years post Rt. Lumpectomy, she [...] low risk for fall Breast cancer (CMS/HCC) [facility] ER/UT + Her2 neg Genetic testing negative Measles [...] m Physical Exam Exam conducted with a sales enablement consultant present. HENT: Head: Normocephalic. Cardiovascular: Rate and [...] 6 months for recheck [facility] Work Phone: Progress note Author Lisa Hennessy [facility] March 16, 2022 2:02pm Note Date/Time March 15, 2022 9: 18pm [facility] at [address] [address] Hem/Onc Follow Up Note - OP Signed Patient: Denia Al MR#: [id number] : 1960 Acct:[id number] Age/Sex: 61 / F Type: REG RCR [...] reviewed pathology results showing Invasive Lobular Carcinoma, [place] histologic score 8/9 (score 3), size 50mm, margins negative for carcinoma, ER 95%, UT 95%, Her2 1+ by IHC, negative. 2 sentinel lymph nodes negative for involvement by tumor. pT2 pN0 Mx. Interestingly, original pathology was invasive ductal carcinoma (lumpectomy final pathology invasive lobular carcinoma). --No residual fullness or pain at surgical site. Discussed Oncotype Dx--will send pathology for testing and followup in 2 weeks. Moderate complexity 35 minute followup visit. 02/07/2022: Phone followup today to discuss [facility] tumor board discussion forplan with Dr. Magana for invasive ductal carcinoma of right breast. I contacted patient today after discussion in [facility] Board this am. Right axillary ultrasound [...] ductal carcinoma (provisional grade 2) ER 95%, UT 95%, Her-2 equivocal IHC 1+ with equivocal [...] ovarian or other cancers. I reviewed her [facility] mammography 12/25/21 and ultrasound 01/01/2022 reports. Breast mass is about 3.6cm in greatest dimension on US (3.8 cm on mammogram). US guided breast biopsy on 01/01/2022 revealed invasive ductal carcinoma (provisional grade 2) ER 95%, UT 95%, Her-2 equivocal IHC 1+ with equivocal [...] week, I will discuss her case at [facility] 02/03/2022 then coordinate phone followup to discuss multidisciplinary planof care. High complexity visit--60 min face to face, 30 min to review outside records and coordinate tumor board discussion of plan. DIAGNOSIS: New diagnosis right upper inner quadrant breast cancer 3.6cm primary by US (clinical T2 Nx Mx) --01/01/2022 biopsy: invasive ductal carcinoma (provisional grade 2) ER 95%, UT 95%, Her-2 equivocal IHC 1+ with equivocal FISH (HER2/CEP 17 1.4; Her2 copy number 4.0). --02/18/2022 lumpectomy with sentinel lymph node biopsy: Invasive Lobular Carcinoma, [place] histologic score 8/9 (score 3), size 50mm, margins negative for carcinoma, ER 95%, UT 95%, Her2 1+ by IHC, negative. 2 [...] lymph node biopsy now Invasive Lobular Carcinoma, [place] histologic score 8/9 (score 3), size 50mm, margins negative for carcinoma, ER 95%, UT 95%, Her2 1+ by IHC, negative. 2 [...] ductal carcinoma (provisional grade 2) ER 95%, UT 95%, Her-2 equivocal IHC 1+ with equivocal [...] week, I will discuss her [facility] 02/03/2022 then coordinate phone followup [...] 50mm, margins negative for carcinoma, ER 95%, UT 95%, [facility], negative. 2 sentinel lymph nodes negative for involvement by tumor. pT2 pN0 Mx. ----Today we discussed Oncotype Dx testing due to high grade ER+, UT+, Her2 negative cancer. She understands that if [...] for coordination of care (as documented) and uyvr-ce-[id number] counseling of patient and/or family. Dictated By: Lisa Hennessy MD DD/ 16 Signed By: <Electronically signed by MD Lisa Hennessy> 03/16/22 1402 [facility] Work Phone: Progress note [facility] June 18, 2022 9:21am Note Date/Time June 18, 2022 8:35am [facility] [place] [address] Rad Onc Follow Up Note - OP Signed Patient: Denia Al MR#: [id number] : 1960 Acct:[id number] Age/Sex: 62 / F Type: REG RCR [...] upper outer quadrant of the right breast, ER/UT positive HER2 negative. We reviewed her pathology [...] confirmed invasive ductal carcinoma, provisional grade 2, ER/UT positive with HER2 equivocal IHC 1+ with equivocalFISH. HER2 copy #4. Clinical stage T2 NX MX. February 07, 2022 right axillary ultrasound was negative for adenopathy. Since [id number] indeterminate node-negative she was recommended for upfront surgery. January 16, 2022 Invitae testing returned negative February 18, 2022 patient proceeded to right breast lumpectomy with sentinel lymph node biopsy. Final pathology confirmed invasive lobular carcinoma, grade 3, 5 cm in size with margins negative. Closest margin was 0.5 mm anteriorly. There was no LVSI identified. There was associated LCIS. ER/UT +2 sentinel nodes negative for tumor. pT2N0 [...] limits Dictated By: Kylee Lindsay MD DD/ 3 Signed By: <Electronically signed by Kylee Lindsay MD> 06/18/22920 [facility] Work Phone: Progress note Author Ciera [facility] March 12, 2023 2:09pm Note Date/Time March 12, 2023 1: 58pm [facility] [place] [address] Hem/Onc Follow Up Note - OP Signed Patient: Denia Al MR#: [id number] : 1960 Acct:[id number] Age/Sex: 62 / F Type: REG RCR [...] 13 cm. She was urgently transferred to [facility] and underwent total hysterectomy, bilateral [...] daily. OK for 3 month f/u with [facility] and 6 month f/u with me, sooner [...] 50mm, margins negative for carcinoma, ER 95%, UT 95%, Her2 1+ by IHC, negative. 2 sentinel lymph nodes negative for involvement by tumor. pT2 pN0 Mx. Interestingly, original pathology was invasive ductal carcinoma (lumpectomy final pathology invasive lobular carcinoma). --No residual fullness or pain at surgical site. Discussed Oncotype Dx--will send pathology for testing and followup in 2 weeks. Moderate complexity 35 minute followup visit. 02/07/2022: Phone followup today to discuss [facility] tumor board discussion forplan with Dr. Magana for invasive ductal carcinoma of right breast. I contacted patient today after discussion in [facility] this am. Right axillary ultrasound [...] ductal carcinoma (provisional grade 2) ER 95%, UT 95%, Her-2 equivocal IHC 1+ with equivocal [...] ovarian or other cancers. I reviewed her [facility] mammography 12/25/21 and ultrasound 01/01/2022 reports. Breast mass is about 3.6cm in greatest dimension on US (3.8 cm on mammogram). US guided breast biopsy on 01/01/2022 revealed invasive ductal carcinoma (provisional grade 2) ER 95%, UT 95%, Her-2 equivocal IHC 1+ with equivocal [...] week, I will discuss her case at [facility] 02/03/2022 then coordinate phone followup to discuss multidisciplinary planof care. DIAGNOSIS: New diagnosis right upper inner quadrant breast cancer 3.6cm primary by US (clinical T2 Nx Mx) --01/01/2022 biopsy: invasive ductal carcinoma (provisional grade 2) ER 95%, UT 95%, Her-2 equivocal IHC 1+ with equivocal FISH (HER2/CEP 17 1.4; Her2 copy number 4.0). --02/18/2022 lumpectomy with sentinel lymph node biopsy: Invasive Lobular Carcinoma, [place] histologic score 8/9 (score 3), size 50mm, margins negative for carcinoma, ER 95%, UT 95%, Her2 1+ by IHC, negative. 2 [...] environmental allergies and food allergies. PMFSH - Medical History Medical History: Medical History [...] lymph node biopsy now Invasive Lobular Carcinoma, [place] histologic score 8/9 (score 3), size 50mm, margins negative for carcinoma, ER 95%, UT 95%, Her2 1+ by IHC, negative. 2 [...] invasive ductal carcinoma (provisional grade 2)ER 95%, UT 95%, Her-2 equivocal IHC 1+ with equivocal [...] week, I will discuss her [facility] 02/03/2022 then coordinate phone followup [...] 50mm, margins negative for carcinoma, ER 95%, UT 95%, [facility], [facility]. 2 sentinel lymph nodes negative for involvement by tumor. pT2 pN0 Mx. ----Today we discussed Oncotype Dx testing due to high grade ER+, UT+, Her2 negative cancer. She understands that if [...] in 2 years (03/2024). Next f/u with [facility] as well as Dr. Magana for surveillance. [...] 13 cm. She was urgently transferred to [facility] and underwent total hysterectomy, bilateral [...] and bilateral salpingo-oophorectomy on 01/21/2023 at the [facility]. Pathology returned consistent with benign, [...] and bilateral salpingo-oophorectomy on 01/21/2023 at the [facility]. Pathology returned consistent with benign, [...] for coordination of care (as documented) and rojq-wi-[id number] counseling of patient and/or family. Dictated By: Ciera Vitale APRN DD/ 1351 Signed By: <Electronically signed by ALEX Vitale> 03/12/23 140 [facility] Work Phone: Progress note Author Ciera Vitale [facility] April 16, 2023 12:52pm Note Date/Time April 16, 2023 12:44pm [facility] [place] [address] Hem/Onc Follow Up Note - OP Signed Patient: Denia Al MR#: [id number] : 1960 Acct:[id number] Age/Sex: 62 / F Type: REG RCR [...] She had follow up CT scan of [facility] abdomen/pelvis done at [facility] yesterday. [...] 13 cm. She was urgently transferred to [facility] and underwent total hysterectomy, bilateral [...] daily. OK for 3 month f/u with [facility] and 6 month f/u with me, sooner [...] 50mm, margins negative for carcinoma, ER 95%, UT 95%, Her2 1+ by IHC, negative. 2 sentinel lymph nodes negative for involvement by tumor. pT2 pN0 Mx. Interestingly, original pathology was invasive ductal carcinoma (lumpectomy final pathology invasive lobular carcinoma). --No residual fullness or pain at surgical site. Discussed Oncotype Dx--will send pathology for testing and followup in 2 weeks. Moderate complexity 35 minute followup visit. 02/07/2022: Phone followup today to discuss [facility] discussion forplan with Dr. Magana for invasive ductal carcinoma of right breast. I contacted patient today after discussion in [facility] this am. Right axillary ultrasound [...] ductal carcinoma (provisional grade 2) ER 95%, UT 95%, Her-2 equivocal IHC 1+ with equivocal [...] ovarian or other cancers. I reviewed her [facility] mammography 12/25/21 and ultrasound 01/01/2022 reports. Breast mass is about 3.6cm in greatest dimension on US (3.8 cm on mammogram). US guided breast biopsy on 01/01/2022 revealed invasive ductal carcinoma (provisional grade 2) ER 95%, UT 95%, Her-2 equivocal IHC 1+ with equivocal [...] week, I will discuss her case at [facility] 02/03/2022 then coordinate phone followup to discuss multidisciplinary planof care. DIAGNOSIS: New diagnosis right upper inner quadrant breast cancer 3.6cm primary by US (clinical T2 Nx Mx) --01/01/2022 biopsy: invasive ductal carcinoma (provisional grade 2) ER 95%, UT 95%, Her-2 equivocal IHC 1+ with equivocal FISH (HER2/CEP 17 1.4; Her2 copy number 4.0). --02/18/2022 lumpectomy with sentinel lymph node biopsy: Invasive Lobular Carcinoma, [place] histologic score 8/9 (score 3), size 50mm, margins negative for carcinoma, ER 95%, UT 95%, Her2 1+ by IHC, negative. 2 [...] for environmental allergies and food allergies. [facility] - Medical History Medical History: Medical History [...] (Last Reviewed 01/01/23 @ 08:39 by Lisa Hennsesy MD) Father Liver cancer Diabetes Mother Hypertension [...] lymph node biopsy now Invasive Lobular Carcinoma, [place] histologic score 8/9 (score 3), size 50mm, margins negative for carcinoma, ER 95%, UT 95%, Her2 1+ by IHC, negative. 2 [...] invasive ductal carcinoma (provisional grade 2)ER 95%, UT 95%, Her-2 equivocal IHC 1+ with equivocal [...] week, I will discuss her [facility] 02/03/2022 then coordinate phone followup [...] 50mm, margins negative for carcinoma, ER 95%, UT 95%, [facility], [facility]. 2 sentinel lymph nodes negative for involvement by tumor. pT2 pN0 Mx. ----Today we discussed Oncotype Dx testing due to high grade ER+, UT+, Her2 negative cancer. She understands that if [...] in 2 years (03/2024). Next f/u with [facility] as well as Dr. Magana for surveillance. [...] 13 cm. She was urgently transferred to [facility] and underwent total hysterectomy, bilateral [...] and bilateral salpingo-oophorectomy on 01/21/2023 at the [facility]. Pathology returned consistent with benign, [...] and bilateral salpingo-oophorectomy on 01/21/2023 at the [facility]. Pathology returned consistent with benign, [...] for coordination of care (as documented) and pbxa-yx-[id number] counseling of patient and/or family. Dictated By: Ciera Vitale APRN DD/ 1237 Signed By: <Electronically signed by ALEX Vitale> 04/16/23 1252 [facility] Work Phone: Chief Complaint and Reason for Visit Chief Complaint Invasive ductal carc daria right breast Right Breast Cacner Right Breast Cacner Reason for Visit [id number] Chief Complaint Right Breast Cacner Right Breast Cacner Right Breast Cacner hematoma right breast hematoma right breast Invasive ductal carcima right breast Reason for Visit [id number] Chief Complaint Invasive ductal carc daria right breast Reason for Visit Encounter for monito ring aromatase inhibitor therapy [id number] Osteopenia Screening for osteoporosis Chief Complaint Invasive ductal carc daria right breast Reason for Visit Adnexal mass Aromatase inhibitor-associated arthralgia Encounter for monitoring aromatase inhibitor therapy [id number] Osteopenia Screening for osteoporosis Chief Complaint Invasive ductal carc daria right breast Follow UP Reason for Visit Adnexal mass Aromatase inhibitor-associated arthralgia Encounter for monitoring aromatase inhibitor therapy [id number] Osteopenia Screening for osteoporosis Aromatase inhibitor-associated arthralgia History of bilateral salpingo-oophorectomy Encounter for monitoring aromatase inhibitor therapy [id number] Osteopenia Chief Complaint Admit Date Follow Up [...] February 11, 2024 End: February 11, 2024 Dish Technician Relationship Specialty Start Date End Date Howard Schumacher MD [address] [place] [address] PCP - General Family Medicine 09/23/23 Ciera Vitale NP [address] [place] [address] PCP - Wilner ARMIJO 10/26/23 Howard Schumacher MD [address] [place] [id number] PCP - Devoted 03/27/24 Dish Technician Relationship Specialty Start Date End Date Howard Schumacher MD [address] [place] [id number] PCP - General Family Medicine 09/23/23 Howard Schumacher MD [address] [place] [id number] PCP - Devoted 03/27/24 Dish Technician Relationship Specialty Start Date End Date Howard Schumacher MD [address] [place] [address] PCP - General [facility] Medicine 09/23/23 Howard Schumacher MD [address] [place] [address] PCP - [facility] 03/27/24 Dish Technician Relationship Specialty Start Date End Date Howard Schumacher MD [address] [place] [address] PCP - General Family Medicine 09/23/23 Howard Schumacher MD [address] [place] [address] PCP - [facility] 03/27/24 Dish Technician Relationship Specialty Start Date End Date Howard Schumacher MD [address] [place] [address] PCP - General Family Medicine 09/23/23 Howard Schumacher MD [address] [place] [address] PCP - [facility]oted 03/27/24 Dish Technician Relationship Specialty Start Date End Date Howard Schumacher MD [address] [place] [address] PCP - General Family [facility] 09/23/23 Howard Schumacher MD [address] [place] [address] PCP - Devoted 03/27/24 Dish Technician Relationship Specialty Start Date End Date Howard Schumacher MD [address] [place] [address] PCP - General Family [facility] 09/23/23 Howard Schumacher MD [address] [place] [address] PCP - Devoted 03/27/24 Dish Technician Relationship Specialty Start Date End Date Howard Schumacher MD [address] [place] [address] PCP - General Family Medicine 09/23/23 Howard Schumacher MD [address] [place] [address] PCP - Devoted 03/27/24 Dish Technician Relationship Specialty Start Date End Date Howard Schumacher MD [address] [place] [address] PCP - General Family Medicine 09/23/23 Howard Schumacher MD [address] [place] [address] PCP - Devoted 03/27/24 Dish Technician Relationship Specialty Start Date End Date Howard Schumacher MD [address] [place] [address] PCP - General Family [facility] 09/23/23 Howard Schumacher MD [address] [place] [address] PCP - Devoted 03/27/24 Goals (unrecognized [...] pital DATE CREATED AUTHOR AUTHOR'S ORGANIZ ATION 12/26/2024 [facility] DATE CREATED AUTHOR AUTHOR'S ORGANIZ ATION 01/08/2025 [facility] EPIC DATE CREATED AUTHOR AUTHOR'S ORGANIZ ATION 02/06/2025 [facility] Reason for Visit (unrecogniz ed section and content) Reason Comments 2nd poy Rt. lumpectomy Mamms done in [place] Reason Comments Toenail Care Non dm nail care [employer] 2nd Reason Comments Follow-up 6 m Reason Comments Follow-up 14d s/p lt 2nd ingro wn Reason Comments 2 1/2 poy Rt. lumpectomy Mamms due in [place] Reason Comments Toenail Care Non dm nail care FOR RECORDS PERTAINING TO PATIENTS WHO ARE [...] BE BASED ON THE PRIMARY CLINICAL RECORDS. [employer] [facility]. provides no warranty or guarantee of the accuracy or completeness of information in this document.
== END 2025-02-09 09:15 | disposition home or self-care (01) ==
LOC: RAD 09:21
PROVIDERS: PCP Family Medicine; Visit Provider Family Medicine
DX: M25.511 Pain in right shoulder (principal); G89.29 Other chronic pain; M85.811 Other specified disorders of bone density and structure, right shoulder
CPT/HCPCS: 73030

== ENCOUNTER 2025-02-28 14:39 | Outpatient (RCR) | payer OTHER, SELFPAY | END 2025-04-06 13:11 | disposition home or self-care (01) | LOC: PT 14:39 | PROVIDERS: PCP Family Medicine; Visit Provider Family Medicine | DX: M25.511 Pain in right shoulder (principal) | CPT/HCPCS: 97010; 97014; 97110; 97140; 97162; G0283 ==

== ENCOUNTER 2025-07-11 20:50 | Outpatient (OUT) | payer OTHER, SELFPAY ==
--- OUTSIDE RECORDS SUMMARY | 2025-02-06 04:15 | XMS_ITS ---
Author Organization 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 Follow up. * Medical History: Objective: * Vitals: Assessment: Plan: * Treatment: * * Electronic signature of Juan Daniel Alcantar DO, [id number] on 07/11/2025 at 08:54 PM ESTSign off status: PendingVisit Status:?CANC (Cancelled) * Provider: Radha Alcantar DO Date: 0 02/06/2025 Generated for Printing/Faxing/eTransmitting on:?07/11/2025 08:54 PM EST
--- OUTSIDE RECORDS SUMMARY | 2025-07-11 20:54 | XMS_ITS | Encounter Summary ---
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 Name Role Phone Howard Medrano MD Unavailable Howard Medrano MD Primary Care Provider [phone] Encounter Details DateTypeDepartmentCare Team (Latest Contact Info)Yquijnnvyya57/11/2025Telephone [facility] [address] [place] [phone] Rebekah Hyatt RN [address] [place], [place] Social History Tobacco UseTypesPacks/DayYears UsedDateSmoking Tobacco: FormerCigarettes0.530 04/12/1992 - 04/12/2022mokeless Tobacco: Never Comments:Last smoked : 1-3 m [facility] Alcohol UseStandard Drinks/WeekCommentsYes7 (1 standard drink = 0.6 oz pure alcohol)caffeine intake : soda/pop; coffeePHQ-2AnswerDate RecordedPatient Health Questionnaire-2 Zwblx565CommentsUnknownSex and Gender InformationValueDate RecordedSex Assigned at BirthNot on fileLegal SexFemale 10/08/2022 11:37 PM EDTGender IdentityNot on fileSexual OrientationNot on file documented as of this encounter Miscellaneous Notes * Telephone Encounter - Rebekah Hyatt RN - 07/06/2025 2:50 PM EST error documented in this encounter Plan of Treatment DateTypeDepartmentCare Team (Latest Contact Info)Raqwobhcjcx33/23/2026 2:45 PM EDTOffice Visit [facility] [address] [facility] [address] [place] [address] David Tan, [address] [facility] [address] [place] [address] documented as of this encounter Visit Diagnoses Not on filedocumented in this encounter Additional Health Concerns AssessmentNoted TimePHQ-9 Depression Total Score: 11:00 AM EDT documented as of this encounter Care Teams Team MemberRelationshipSpecialtyStart DateEnd Date Howard Medrano MD [address] [place] [address] PCP - Devoted03/27/24 Howard Medrano MD [address] [place] [address] PCP - GeneralFamily Medicine04/24/25documented as of this encounter
--- OUTSIDE RECORDS SUMMARY | 2025-07-11 20:54 | XMS_ITS | Clinical Summary ---
Author Organization [facility] Address [address] [place] [address] Care Team Providers Care Health And Wellness Director Name Role Phone Howard Medrano MD Unavailable Howard Medrano MD Primary Care Provider [phone] Allergies Active AllergyReactionsCriticalityNoted DateCommentsPenicillin GUnknown 02/03/2023 Medications MedicationSigDispense QuantityRefillsLast FilledStart DateEnd DateStatus cholecalciferol (Vitamin D3) 25 MCG (1000 UT) tablet 1 (one) time each day at the same timeActive calcium carbonate (Os-Satya) 1250 (500 Ca) MG tablet 1 (one) time each day at the same timeActive Ascorbic Acid (vitamin C) 1000 MG tablet 1 (one) time each day at the same timeActive anastrozole (Arimidex) 1 MG chemo tablet Take 1 mg by mouth Daily.3Active amLODIPine (Norvasc) 5 MG tablet Take 5 mg by mouth Daily5Active meloxicam (Mobic) 15 MG tablet Indications:Arthralgia, unspecified jointTAKE 1 TABLET BY MOUTH ONCE DAILY 30 tablet 505Active Additional Information Patient taking differently:15 mg Oral Daily,(No times of day reported), Reported on 05/24/2025 amLODIPine (Norvasc) 2.5 MG tablet Take 2.5 mg by mouth Daily5Active Active Problems ProblemNoted DateDiagnosed DateBenign essential mopgrbytglww26/13/2025Medicare annual wellness visit, /13/2025 Assessment & Plan (03/08/2025 12:21 PM EDT): Reviewed labs. Discussed proper diet and regular aerobic exercise. Need aerobic exercise 5-6 days aweek for 30 minutes at a time. Smaller portions and limit total calories. Tetanus every 10 years. Advised not to smoke. NAFL (nonalcoholic fatty liver)09/28/2024ngiomyolipoma of right kidney 09/28/2024Elevated liver function tests09/15/2024Malignant neoplasm of upper- inner quadrant of right breast in female, estrogen receptor uzuygwnj16/06/2024 Primary osteoarthritis, right /08/2024 Assessment & Plan (02/01/2024 5:23 PM EDT): Increased pain and possible OA. Check x-ray. Treat with prednisone. Handout with ROM exercises to patient. If no improvement may need injections or MRI. Adnexal mass11/09/2023Encounter for monitoring aromatase inhibitor therapy 11/09/20231328Hzvefhzitj33/15/2024reast pain09/24/20231888Kcrqcncdkc07/09/2024 Assessment & Plan (08/01/2024 1:33 PM EST): Pain stable and continue mobic. If worsens would need to repeat labs and refer to rheum. Assessment & Plan (08/04/2023 11:14 AM EST): Pain improved with mobic and continue. If worsens would need to repeat labs and refer to rheum. Ductal carcinoma of right nheuor3908/04/2023 Assessment & Plan (08/01/2024 1:33 PM EST): Follow with oncology. Positive [place] (antinuclear antibody)08/04/2023Encounter for long-term (current) use of hifmgcndmea81/09/1056Mtdojkoazaol73/09/2024Mass of soft tissue of face 06/26/2023 Resolved Problems ProblemNoted DateDiagnosed DateResolved DateObesity (BMI 30-39.9)08/04/2023 08/01/2024Malignant neoplasm of upper-inner quadrant of right female breast /02/2024 Encounters DateTypeDepartmentCare GxkzQgmviezwrhd83/11/2025Telephone [facility] [address] [place] [address] Rebekah Hyatt RN 06/12/2025Telephone [facility] [address] [place] [address] Rebekah Hyatt, PARAM schedule Sx ?05/24/2025 2:00 PM EDTOffice Visit [facility] [address] [place] [address] Joe Vincent, DO Primary osteoarthritis of right shoulder (Primary Dx); Acute pain of right dvuqnxgi21/29/2025amboo flowsheet [facility] [address] [place] [address] Joe Vincent, DO 05/24/20252316Fgkdke38/15/2025 10:00 AM EDTOffice Visit [facility] [address] [place] [address] Jr. Aung Mckenna, DO Rotator cuff arthropathy, right (Primary Dx)05/10/2025amboo flowsheet [facility] [address] [place] [address] Jr. Aung Mckenna, DO 05/10/20253236Dzxtye56/06/2025 11:00 AM EDTAncillary Procedure [facility] [address] [place] [address] Internal derangement of right rzixutah90/06/7241Ixpwjl89/30/2025Orders Only [facility] [address] [place] [address] David Tan, 04/24/2025 2:45 PM EDTOffice Visit [facility] [address] [place] [address] David Tan, Malignant neoplasm of upper-inner quadrant of right breast in female, estrogen receptor positive (HCC) (Primary Dx)04/24/20254961Qpwcmt27/25/2025 2:00 PM EDTOffice Visit [facility] [address] [address] Nawaf Roger, ALEXIA Internal derangement of right shoulder (Primary Dx); Arthritis of right acromioclavicular joint; Chronic right shoulder pain04/20/2025amboo flowsheet [facility] [address] [address] Nawaf Roger, ALEXIA 04/20/2025Travelfrom Last 3 Months Immunizations ImmunizationAdministration DatesNext DueInfluenza, Seasonal, Quadrivalent, Sxbskxnnhr84/26/2023Influenza, injectable, quadrivalent, preservative free 05/13/2022,06/19/2021,04/05/2020Pneumococcal Polysaccharide DGDN561208/11/1998RSV, recombinant, protein subunit RSVpreF, adjuvant reconstitu, 120mcg/0.5mL, PF (Arexvy)06/04/2023 Family History Medical HistoryRelationNameCommentsCancerFatherDiabetesFatherLiver cancerFather DiabetesMotherHeart diseaseMotherHypertensionMotherBreast cancerMother's Sister DiabetesSisterColon cancerNeg HxOvarian cancerNeg HxRelationNameStatusComments Brother1 brotherFatherDeceasedMotherAliveMother's SisterAliveOtherNo family history of breast, colon, or ovarian cancerSister2 sisters Social History Tobacco UseTypesPacks/DayYears UsedDateSmoking Tobacco: FormerCigarettes0.530 04/12/1992 - 04/12/2022mokeless Tobacco: Never Tobacco Cessation:Counseling Given: Yes Comments:Last smoked : 1-3 months Alcohol UseStandard Drinks/WeekCommentsYes7 (1 standard drink = 0.6 oz pure alcohol)caffeine intake : soda/pop; coffeePHQ-2AnswerDate RecordedPatient Health Questionnaire-2 Qfilb313CommentsUnknownSex and Gender InformationValueDate RecordedSex Assigned at BirthNot on fileLegal SexFemale 10/08/2022 11:37 PM EDTGender IdentityNot on fileSexual OrientationNot on file Last Filed Vital Signs Vital SignReadingTime TakenCommentsBlood Nzqohmwb479/9009 2:36 PM EDT Mziwg615403/08/2025 11:51 AM KRDKghfojaouxy95.6 ??C (97.8 ??F)03/08/2025 11:51 AM EDTRespiratory Nytt629303/08/2025 11:51 AM EDTOxygen Lcjzgezqyi37%03/08/2025 11:51 AM EDTInhaled Oxygen Concentration--Rkfsxf27.8 kg (158 lb 6.4 oz)05/24/2025 1:48 PM KGTOndxdn180.1 cm (5' 5 )05/24/2025 1:48 PM EDTBody Mass Index26.361 1:48 PM EDT Plan of Treatment DateTypeDepartmentCare Team (Latest Contact Info)Wscnodzceco25/23/2026 2:45 PM EDTOffice Visit [facility] [address] [address] David Tan, DO [address] [address] Health MaintenanceDue DateLast DoneCommentsCT Wpowekkckktj1958Colonoscopy 1960FIT-DNA1958FIT1960FOBT1960 1671Ikexiqmdzzzbz1960 Pneumococcal Vaccine: 65+ Years (2 of 2 - PCV)COVID-19 Vaccine ( season), 05/13/2022, 10/29/2021, Additional history existsInfluenza Vaccine (#1)51, 05/13/2022, 06/19/2021, Additional history existsColorectal Cancer Okhmdstnq60/13/2026 Postponed from 1960 (Patient Refused)Medicare Annual Wellness (AWV) 605Cervical Cancer ScreeningDiscontinuedPap SmearDiscontinued 01/21/2023HPV/CotestDiscontinued Procedures Procedure NamePriorityDate/TimeAssociated DiagnosisCommentsMR SHOULDER RIGHT WO IV QNWVMTDFCmpfows41/06/2025 11:15 AM EDT Internal derangement of right shoulder from Last 3 Months Results * MR shoulder right wo IV contrast (05/01/2025 11:15 AM EDT)Anatomical Region LateralityModalityUpper Extremities, ShoulderRightMagnetic ResonanceSpecimen (Source)Anatomical Location / LateralityCollection Method / VolumeCollection TimeReceived Time05/02/2025 11:16 AM EDT Impressions 05/02/2025 11:38 AM EDT Full-thickness tear of distal supraspinatus tendon. Near full-thickness tear of distal infraspinatus tendon. Moderate subscapularis tendinosis. Severe atrophy and fatty infiltration of subscapularis muscle and moderate atrophy and fatty infiltration of supraspinatus, infraspinatus, and teres minor muscles. Severe long head biceps tendinosis. Anterior superior through posterior superior labral degeneration/tearing. Mild glenohumeral osteoarthritis. ELECTRONICALLY SIGNED BY: DO Samaria Mchugh 05/02/2025 11:38 AM EDT EXAM: MR SHOULDER RIGHT WO IV CONTRAST HISTORY: Shoulder pain and limited range of motion. TECHNIQUE: Multiplanar multisequence MRI of the ??shoulder was performed Without contrast. COMPARISON: Shoulder radiographs February 09, 2025 FINDINGS: Mild degenerative changes of the acromioclavicular joint with small undersurface ossified formation. The acromion is curved. Coracoclavicular ligament intact. Small to moderate amount of subacromial/subdeltoid bursal fluid. Full-thickness tear of distal supraspinatus tendon at the footprint with retraction of torn fibers to the level of the glenoid. Near full-thickness tear of distal infraspinatus tendon with some abnormal appearing posterior fibers remaining intact. Moderate subscapularis tendinosis. Teres minor tendon is intact. Severe atrophy and fatty infiltration of subscapularis muscle and moderate atrophy andfatty infiltration of supraspinatus, infraspinatus, and teres minor muscles. Severe intra-articular long head biceps tendinosis. Partial medial subluxation of the long head biceps tendon. Anterior superior through posterior superior labral degeneration/tearing. Full- thickness cartilage loss of the inferomedial humeral head without well-defined cartilage defect. Moderate glenohumeral joint effusion with multiple tiny loose bodies within the axillary recess. Procedure Note Kee Zavaleta, DO - 05/02/2025 EXAM: MR SHOULDER RIGHT WO IV CONTRAST HISTORY: Shoulder pain and limited range of motion. TECHNIQUE: Multiplanar multisequence MRI of the shoulder was performedWithout contrast. COMPARISON: Shoulder radiographs February 09, 2025 FINDINGS: Mild degenerative changes of the acromioclavicular joint with smallundersurface ossified formation. The acromion is curved. Coracoclavicularligament intact. Small to moderate amount of subacromial/subdeltoid bursalfluid. Full-thickness tear of distal supraspinatus tendon at the footprint with retraction of torn fibers to the level of the glenoid. Near full-thicknesstear of distal infraspinatus tendon with some abnormal appearing posteriorfibers remaining intact. Moderate subscapularis tendinosis. Teres minortendon is intact. Severe atrophy and fatty infiltration of subscapularismuscle and moderate atrophy and fatty infiltration of supraspinatus,infraspinatus, and teres minor muscles. Severe intra-articular long head biceps tendinosis. Partial medialsubluxation of the long head biceps tendon. Anterior superior through posterior superior labral degeneration/tearing.Full- thickness cartilage loss of the inferomedial humeral head withoutwell-defined cartilage defect. Moderate glenohumeral joint effusion with multiple tiny loose bodieswithin the axillary recess. IMPRESSION: Full-thickness tear of distal supraspinatus tendon. Near full-thickness tear of distal infraspinatus tendon. Moderate subscapularis tendinosis. Severe atrophy and fatty infiltration of subscapularis muscle and moderate atrophy and fatty infiltration of supraspinatus, infraspinatus, and teresminor muscles. Severe long head biceps tendinosis. Anterior superior through posterior superior labraldegeneration/tearing. Mild glenohumeral osteoarthritis. ELECTRONICALLY SIGNED BY: Kee Zavaleta DO Authorizing ProviderResult TypeResult StatusElenadarling Darling Roger NPIMG MRI PROCEDURES Final Result from Last 3 Months Insurance * Guarantor: Jacquelin Al TypeRelation to PatientDate of PhoneBilling AddressPersonal/FsodsvMoly[address] [address] Care Teams Team MemberRelationshipSpecialtyStart DateEnd Date Howard Medrano MD [address] [place] [address] PCP - [facility]03/27/24 Howard Medrano MD [address] [place] [address] PCP - [facility]04/24/25
--- OUTSIDE RECORDS SUMMARY | 2025-07-11 20:54 | XMS_ITS | Clinical Summary ---
Author Organization [email or web address] [facility] tem Address [id number] [address] [place] [address] Care Team Providers Care Other Sports Official Name Role Phone Howard Medrano MD Primary Care Provider [phone] Allergies Active AllergyReactionsCriticalityNoted YqrkLiqzabjzHnnimwvjdxp33/28/2023 Medications MedicationSigDispense QuantityRefillsLast FilledStart DateEnd DateStatus anastrozole (ARIMIDEX) 1 mg chemo tablet Take 1 tablet by mouth dailyActive cholecalciferol 1,000 units tablet Take 1 tablet (1,000 Units total) by mouth in the morning.Active acetaminophen (TYLENOL EXTRA STRENGTH) 500 mg tablet Take 2 tablets (1,000 mg total) by mouth every 8 (eight) hours. 60 tablet 01/25/2023ctive ibuprofen (MOTRIN) 800 mg tablet Take 1 tablet (800 mg total) by mouth every 8 (eight) hours. 60 tablet 01/25/2023ctive docusate sodium (COLACE) 100 mg capsule Take 1 capsule (100 mg total) by mouth in the morning and 1 capsule (100 mg total) before bedtime. 60 capsule 01/25/2023ctive Additional Information Patient not taking.Reported on 02/03/2023 sennosides-docusate sodium (SENOKOT-S) 8.6-50 mg Take 1 tablet by mouth every 12 (twelve) hours as needed for constipation. 60 tablet 01/25/2023ctive Additional Information Patient not taking.Reported on 02/03/2023 Active Problems No known active problems Resolved Problems ProblemNoted DateDiagnosed DateResolved DatePelvic mass Immunizations ImmunizationAdministration DatesNext DueCOVID-19, mRNA, LNP-S, PF, 100mcg/0.5mL Dose10/26/2020,09/28/2020 Social History Tobacco UseTypesPacks/DayYears UsedDateSmoking Tobacco: FormerCigarettesPassive Smoke Exposure: PastSmokeless Tobacco: Never Tobacco Cessation:Counseling Given: Not Answered ChildcareAnswerDate IwifpjauUmjadurxlPfyolra86/02/2021mploymentAnswerDate XbmrqbhmCeyldgpfcoHrngxwa12/02/2021Purpose - LifeAnswerDate RecordedPurpose and direction in trdbQzmmjdl35/02/2021CommentsUnknownSex and Gender InformationValueDate RecordedSex Assigned at BirthNot on fileLegal SexFemale 03/01/2015 11:39 AM EDTGender IdentityNot on fileSexual OrientationNot on file Last Filed Vital Signs Vital SignReadingTime TakenCommentsBlood Egpcigpb801/72004/14/2023 1:46 PM EDT Tysnv1682/19/2023 1:46 PM TRRYbmaymehtbu03.8 ??C (98.3 ??F)04/14/2023 1:46 PM EDTRespiratory Dhbd724304/14/2023 1:46 PM EDTOxygen Gkrdkupxgv632%04/14/2023 1:46 PM EDTInhaled Oxygen Concentration--Dgigds96.5 kg (162 lb)04/14/2023 1:46 PM EDT Zpwegp256.1 cm (5' 5 )04/14/2023 1:46 PM EDTBody Mass Index26.9604/14/2023 1:46 PM EDT Plan of Treatment Health MaintenanceDue DateLast DoneCommentsDepression Qnmldltaq32/23/1970Tobacco Jymspqbot92/23/1970DTaP,Tdap and Td Vaccines (1 - Tdap)1977Zoster (Shingles) Vaccine (1 of 2)2008Fall Risk Iqaapjiez78/23/2023dult BMI Clgebqidk62OVID-19 Vaccine ( - 2024- season)2025 05/13/2022, 10/29/2021, 06/19/2021, Additional history existsInfluenza Vaccine 510/, 06/19/2021, 04/05/2020RSV ( or age 60+ yrs) (1 - 1-dose 75+ series)3Pap AiftfSrhfoimgdavg77/28/2023, 01/21/2023 Medical Devices Not on file Procedures Procedure NamePriorityDate/TimeAssociated DiagnosisCommentsPAP SMEARSTAT 01/21/2023 3:10 AM EDT Pelvic mass from Last 3 Months or Most Recently Relevant to Health Maintenance Results * Pap Smear (01/21/2023 3:10 AM EDT)Specimen (Source)Anatomical Location / LateralityCollection Method / VolumeCollection TimeReceived Time01/21/2023 3:10 AM EDT01/21/2023 3:11 AM EDT Narrative COPATH - 01/22/2023 11:35 AM EDT [facility] ? [address] [place] [address] ? [place] [address] ? Gynecologic Cytology Consultation ? Patient Name:ZUNILDA AL:1960 (Age: 62)Gender:FTaken:01/21/2023Reported:01/22/2023hysician(s):Yas Lainez MD ([phone])Copy To: Rec. #:[id number]: #[id number] Final Cytologic Interpretation ThinPrep Pap Test (Cervical): Satisfactory for evaluation. NEGATIVE FOR INTRAEPITHELIAL LESION OR MALIGNANCY. Shift in david suggestive of bacterial vaginosis. ?? pjt/01/22/2023 Interpretation performed at [facility], [address] [place] [address], [place] [address], License number: [id number]. Electronically Signed Out By ?P.J. Brant, CT(ASCP) Date of Last Menstrual Period: ? (None Given) Other Clinical Conditions: Menopausal Previous treatment: adnexal mass R19.00 Pelvic mass Source of Specimen ??ThinPrep Pap Test (Cervical) ? Thin Prep Pap (BUSINESS MGR) Fee Code(s): ?? 86835 Authorizing ProviderResult TypeResult StatusSymonedavin Lainez MDPATHOLOGY/CYTOLOGY ORDERABLESFinal ResultPerforming OrganizationAddressCity/State/ZIP CodePhone Number COPATH from Last 3 Months or Most Recently Relevant to Health Maintenance Insurance * Guarantor: Jacquelin Al TypeRelation to PatientDate of PhoneBilling AddressPersonal/ZmqmiqLyem1960 [address] [address] Advance Directives * Full Code (Latest Code Status on File) Date ActivatedDate InactivatedComments01/21/2023 4:56 PM01/25/2023 1:07 PM Care Teams Team MemberRelationshipSpecialtyStart DateEnd Date Howard Medrano MD PCP - GeneralFamily Medicine02/03/23
--- OUTSIDE RECORDS SUMMARY | 2025-07-11 20:54 | XMS_ITS | Encounter Summary ---
Author Organization [facility] Address [address] [place] [address] Care Team Providers Care Scratch Polisher Name Role Phone Howard Medrano MD Unavailable Howard Medrano MD Primary Care Provider [phone] Reason for Visit * ReasonOnset DateCommentsschedule Sx ?06/12/2025 Encounter Details DateTypeDepartmentCare Team (Latest Contact Info)Ffrxzhchtmv29/17/2025Telephone [facility] [address] [phone] Rebekah Hyatt RN [address] [place], [place] schedule Sx ? Social History Tobacco UseTypesPacks/DayYears UsedDateSmoking Tobacco: FormerCigarettes0.530 04/12/1992 - 04/12/2022mokeless Tobacco: Never Comments:Last smoked : [facility] Alcohol UseStandard Drinks/WeekCommentsYes7 (1 standard drink = 0.6 oz pure alcohol)caffeine intake : soda/pop; coffeePHQ-2AnswerDate RecordedPatient Health Questionnaire-2 Qskkn844CommentsUnknownSex and Gender InformationValueDate RecordedSex Assigned at BirthNot on fileLegal SexFemale 10/08/2022 11:37 PM EDTGender IdentityNot on fileSexual OrientationNot on file documented as of this encounter Miscellaneous Notes * Telephone Encounter - Rebekah Hyatt RN - 07/07/2025 12:53 PM EST Patient informed, will have biological scientist send us note. * Telephone Encounter - Jojo Monge MA - 07/06/2025 2:29 PM EST Nothing available anymore this year. Patient would need cardiac approval along with CT scan and DEXA complete prior to scheduling surgery. * Telephone Encounter - Rebekah Hyatt RN - 07/06/2025 1:46 PM EST Seeing biological scientist next Thursday, is possible for Sx this year if heart is OK? * Telephone Encounter - Jojo Monge MA - 06/12/2025 1:13 PM EST Called and spoke with patient, she is scheduled for her CT scan and DEXA on 06/16. Tiffanie is also pending some testing with her biological scientist and may have to have a heart cath in the future. Patient would like to cancel testing at this time until she gets clearance from cardiology. She will call back once this happens to R/S testing. documented in this encounter Plan of Treatment DateTypeDepartmentCare Team (Latest Contact Info)Bpmnnsfdkwc73/23/2026 2:45 PM EDTOffice Visit [facility] [address] [phone] David Tan, [address] [facility] [address] [place] [address] documented as of this encounter Visit Diagnoses Not on filedocumented in this encounter Additional Health Concerns AssessmentNoted TimePHQ-9 Depression Total Score: 11:00 AM EDT documented as of this encounter Care Teams Team MemberRelationshipSpecialtyStart DateEnd Date Howard Medrano MD [address] [place] [phone] PCP - [facility]03/27/24 Howard Medrano MD [address] [place] [address] PCP - [facility]04/24/25documented as of this encounter
--- OUTSIDE RECORDS SUMMARY | 2025-07-11 20:55 | XMS_ITS | Clinical Summary ---
Author Organization [facility] Address [address] [place] [address] Care Team Providers Care Dial Painter Name Role Phone Howard Medrano MD Primary Care Provider [phone] Allergies Active AllergyReactionsCriticalityNoted CmuvWjaywomvDwjteuhqkrrKsjtgkj19/28/2023 Medications MedicationSigDispense QuantityRefillsLast FilledStart DateEnd DateStatus cholecalciferol (Vitamin D-3) 25 MCG (1000 units) tablet Take 1,000 Units by mouth in the morning.Active ascorbic acid (Vitamin C) 1,000 mg tablet Take 1,000 mg by mouth in the morning.Active anastrozole (Arimidex) 1 mg chemo tablet Take 1 mg by mouth in the morningActive meloxicam (Mobic) 15 mg tablet Take 1 tablet by mouth in the morning.5Active amLODIPine (Norvasc) 10 mg tablet Indications:Essential hypertensionTake 1 tablet (10 mg) by mouth in the morning. 90 tablet ctive amLODIPine (Norvasc) 5 mg tablet Take 5 mg by mouth in the morning.06/26/2025Discontinued(Reorder) Active Problems ProblemNoted DateDiagnosed DateHistory of bilateral salpingo-oophorectomy 06/05/2025enign essential lmewrnksivgv59/13/2025Medicare annual wellness visit, pnyxelgtzr16/13/2025ngiomyolipoma of right olvrjj3609/28/2024NAFL (nonalcoholic fatty liver)09/28/2024Elevated liver function tests09/15/2024Malignant neoplasm of upper-inner quadrant of right breast in female, estrogen receptor positive 04/01/2024hronic right shoulder pain02/01/2024rimary osteoarthritis, right mrxkfxhe48/08/2024dnexal mass11/09/2023Encounter for monitoring aromatase inhibitor qbikzqt6011/09/20230072Dxumopugpb15/15/2024reast pain09/24/2023rthralgia 08/04/2023uctal carcinoma of right qqdejp2708/04/20230164Uqszmflcpvcf01/09/2024 Encounter for long-term (current) use of cmjtembtscs63/09/2024ositive [place] (antinuclear antibody)08/04/2023Mass of soft tissue of face06/26/2023 Encounters DateTypeDepartmentCare LuuwAfweutehtyq85/01/2025Refill [place] [address] [place] [address] Gem Luque MA Essential hypertension (Primary Dx)06/07/2025 10:30 AM ESTOffice Visit [facility] [address] [place] [address] Tasha Walter MD Suspected pulmonary hypertension (Primary Dx); Other chest pain06/07/2025Orders Only [facility] [address] [place] [place] [address] Gem Luque MA Nonrheumatic mitral valve regurgitation (Primary Dx)from Last 3 Months Family History Medical HistoryRelationNameCommentsCancerFatherHypertensionFatherDiabetes type IIMotherHypertensionMotherRelationNameStatusCommentsFatherMother Social History Tobacco UseTypesPacks/DayYears UsedDateSmoking Tobacco: FormerCigarettesPassive Smoke Exposure: PastSmokeless Tobacco: NeverAlcohol UseStandard Drinks/Week CommentsYes0 (1 standard drink = 0.6 oz pure alcohol)6 pack per day CommentsUnknownSex and Gender InformationValueDate RecordedSex Assigned at Finoax4604/19/2025 10:46 AM EDTLegal JycPoucwa08/28/2025 8:27 AM EDTGender ZknsrqtjLciaap15/24/2025 10:46 AM EDTSexual OrientationHeterosexual or Straight 04/19/2025 10:46 AM EDT Last Filed Vital Signs Vital SignReadingTime TakenCommentsBlood Oavovwzn841/7806/07/2025 10:56 AM EST Ockcg858406/07/2025 10:56 AM ESTTemperature--Respiratory Rate--Oxygen Saturation 97%06/07/2025 10:56 AM ESTInhaled Oxygen Concentration--Eqwkvu50.6 kg (160 lb) 06/07/2025 10:56 AM GDZSejzuj000.1 cm (5' 5 )06/07/2025 10:56 AM ESTBody Mass Index26.6306/07/2025 10:56 AM EST Plan of Treatment Health MaintenanceDue DateLast DoneCommentsCT Eauxbhzeqqvi1958Colonoscopy 1958Colorectal Cancer Kivjnhqhq1958FIT-DNA1958FIT1958 FOBT1958Medicare Annual Wellness (AWV)1960 2228Hofnywzarkwmu1958 Depression Vjgmweuae91/23/1970Adult Xlokfnr5604/18/1980Pneumococcal Vaccine: 50+ Years (2 of 2 - PCV)Zoster Vaccines (1 of 2)2008Fall Risk Lfveryzji71/23/2023COVID-19 Vaccine ( - season)2025 05/21/2023, 05/13/2022, 10/29/2021, Additional history existsInfluenza Vaccine (#1)51, 05/13/2022, 06/19/2021, Additional history exists KyvwencziCwbwbelrqzdd13/06/2024, 12/29/2022HIB VaccinesAged OutNo longer eligible based on patient's age to complete this topicHPV VaccinesAged OutNo longer eligible based on patient's age to complete this topicIPV VaccinesAged OutNo longer eligible based on patient's age to complete this topicMeningococcal B VaccineAged OutNo longer eligible based on patient's age to complete this topicMeningococcal VaccineAged OutNo longer eligible based on patient's age to complete this topicRotavirus VaccinesAged OutNo longer eligible based on patient's age to complete this topic Insurance * Guarantor: Jacquelin Al TypeRelation to PatientDate of PhoneBilling AddressPersonal/RojljpZkxy1960 [address] [address] Care Teams Team MemberRelationshipSpecialtyStart DateEnd Date Howard Medrano MD [address] [place] [phone] PCP - GeneralFamily Medicine12/21/24
--- OUTSIDE RECORDS SUMMARY | 2025-07-11 20:55 | XMS_ITS | Patient Health Record ---
Author Organization [facility] [place] Address [address] [place] [address] Care Team Providers Care Crop Supervisor Name Role Phone Juan Daniel Alcantar Primary Care Provider Allergies Allergen (clinical drug ingredient) Drug/Non Drug Allergy documented on EMR Reaction Allergy Type Onset Date Status PenicillinUnknownDrug AllergyActive Reason For Referral No Information Medications Medication SIG (Take, Route, Frequency, Duration) Notes Start Date End Date Status amLODIPine Besylate 5 MG 1 tablet Orally Once a day; Duration: 90 days 5ActiveMeloxicam 15 MG1 tablet Orally Once a dayActiveAnastrozole 1 MG1 tablet Orally Once a dayActive Social History Tobacco Use: Social History Observation Description Date Details (start date - stop date) Never Smoker NA - NA Tobacco Control (Standard) Question Answer Notes Tobacco use: Nonsmoker Section Notes: - 2024 Problems Problem Type SNOMED Code ICD Code Onset Dates Problem Status W/U Status Risk Notes Problem Essential hypertension (88285570 ) Essential (primary) hypertension (I10) ActiveconfirmedProblemOverweight (619830788)Overweight (E66.3)Activeconfirmed ProblemPersonal history of primary malignant neoplasm of breast (392533815) Personal history of malignant neoplasm of breast (Z85.3)ActiveconfirmedProblem Panic disorder (802366126)Panic disorder [episodic paroxysmal anxiety] (F41.0) Activeconfirmed Vital Signs Heart Rate 75 /min 12/29/2024 Respiratory Rate16 /min12/29/20248253Sytocrcv34 %12/29/2024lood pressure diastolic 100 mm Hg12/29/20240138Szobbt14 in in12/29/2024lood pressure oqyqqhqa757 mm Hg 12/29/20245339Vozjoe864.4 lbs12/29/2024BMI26.69 kg/m212/29/2024 Encounters Encounter Location Date Provider Diagnosis [facility] [address] [place] [address] 12/29/2024 Juan Daniel Alcantar Essential (primary) hypertension I10 ; Chest pain, unspecified R07.9 ; Panic disorder [episodic paroxysmal anxiety] F41.0 ; Overweight E66.3 ; Body mass index [BMI] 26.0-26.9, adult Z68.26 ; Pain in unspecified joint M25.50 ; Personal history of malignant neoplasm of breast Z85.3 and Encounter for general adult medical examination with abnormal findings Z00.01 [facility] [address] [place] [address] 12/29/2024 Juan Daniel Alcantar [facility] [place] [address]/04/2025Danipatricio AlcantarEssential (primary) hypertension I10 Assessments Encounter Date Diagnosis (ICD Code) Assessment Notes Treatment Notes Treatment Clinical Notes Section Notes 12/29/2024 Essential (primary) hypertension (ICD-10 - I10) uncontrolled bp check daily goal <130/80 diet/exercise monitor bmp and urine microalbumin yearly rtc 6 months 12/29/2024hest pain, unspecified (ICD-10 - R07.9) monitor for now ER if worsens rtc if continues - ?BP related f/u cardio for appt and echo 06/29/2025Essential (primary) hypertension (ICD-10 - I10)12/29/2024Panic disorder [episodic paroxysmal anxiety] (ICD-10 - F41.0) d/w pt that we can try hydroxyzine prn - she will hold off rec counseling 12/29/2024Overweight (ICD-10 - E66.3)diet//05/2025ody mass index [BMI] 26.0-26.9, adult (ICD-10 - Z68.26)12/29/2024Pain in unspecified joint (ICD-10 - M25.50) stable rtc 1 year 12/29/2024Personal history of malignant neoplasm of breast (ICD-10 - Z85.3) 12/29/2024Encounter for general adult medical examination with abnormal findings (ICD-10 - Z00.01) rec natalie yearly rec dexa q2 years rec vaccines - flu/dtap/rsv/shingrix/pn rtc 1 year diet/exercise labs yearly eye and dental exams yearly rec colonoscopy/cologuard Plan Of Treatment No Information Insurance Providers Payer Name Payer Address Payer Phone Subscriber Number Group Number Insured Name Patient Relationship to Insured Coverage Start Date Coverage End Date [employer] [address] [id number] Coleman Al - patient is the [id number] 2023 Medical (General) History Medical History History ICD Code breast cancer - s/p surgery and radiatio n - seeing oncology - dr phillips HTNOASurgical History Surgery Date(Month/Year) appendectomy zzosymznqnpkyetckhnezdik3449P breast frqqhxhhgq4959hzzfe hysterectomy with bso olonoscopy
== END 2025-07-11 20:51 | disposition home or self-care (01) ==
PROVIDERS: PCP Internal Medicine Interventional Cardiology; Visit Provider Internal Medicine Interventional Cardiology
DX: G47.33 Obstructive sleep apnea (adult) (pediatric) (principal)
CPT/HCPCS: 95810